=== PATIENT | female | born 1945 | race Caucasian/White ===

== ENCOUNTER → 2018-03-18 11:06 | Outpatient (POV) | payer MEDICARE, OTHER, SELFPAY | PROVIDERS: Visit Provider Nurse Practitioner Acute Care | DX: Z00.00 Encounter for general adult medical examination without abnormal findings (principal) ==

== ENCOUNTER → 2018-07-15 10:42 | Outpatient (POV) | payer MEDICARE, SELFPAY | PROVIDERS: Family Provider Internal Medicine; PCP Internal Medicine; Visit Provider Nurse Practitioner Acute Care | DX: Z00.00 Encounter for general adult medical examination without abnormal findings (principal) ==

== ENCOUNTER → 2018-07-22 08:06 | Outpatient (CLI) | payer MEDICARE, OTHER, SELFPAY ==
--- NOTE | 2018-07-22 08:00 | US_ITS ---
US abdomen limited History:Right upper quadrant pain Ordering Physician:Constance Thornton Patient Age: 72 years Comparison:None Findings: Pancreas:Unremarkable. No obvious mass or abnormal fluid collection. No ductal dilatation Liver:No focal liver lesions demonstrated. Homogeneous echogenicity. No intrahepatic biliary ductal dilatation evident Right Kidney:Unremarkable. Normal size and echogenicity. No hydronephrosis Gallbladder:There is a gallstone present measuring approximately 15 mm. No gallbladder wall thickening or pericholecystic fluid. The common bile duct is upper normal at 7 mm. Impression: Cholelithiasis
== END ==
PROVIDERS: Family Provider Internal Medicine; PCP Internal Medicine; Visit Provider Nurse Practitioner Acute Care
DX: Z12.11 Encounter for screening for malignant neoplasm of colon (principal); R10.11 Right upper quadrant pain; R07.9 Chest pain, unspecified
CPT/HCPCS: 76705

== ENCOUNTER → 2018-08-01 07:36 | Outpatient (CLI) | payer MEDICARE, OTHER, SELFPAY ==
--- NOTE | 2018-08-01 07:39 | CA_ITS ---
PROCEDURE: 2-D M-mode and color Doppler study INDICATIONS FOR THE TEST: Chest pain+ COPD Heart Murmur Tobacco Smoking Palpitations Fatigue Syncope Edema Hypertension+Diabetes Mellitus Rheumatic Fever SOB BRADLEY Obesity Hyperlipidemia+ Family History HD Additional History abn EKG PATIENT INFORMATION HEIGHT: 60 WEIGHT: 136 GENDER: Female B/P: 158/74 2-D/M-MODE INTERPRETATION: 2-D MEASUREMENTS OBSERVED VALUES IN CMS Right Ventricular Dimension (RVDd) 2.1 Interventricular Septum (Thickness)(IVsd) 1.1 Left Ventricular Internal Dimensions(LVIDd) 3.5 Left Ventricular Posterior Wall (Thickness)(LVPWd) 0.8 Aortic Root 2.5 Aortic Cusp Separation 2.0 Left Atrial Dimensions (LAD) 2.9 2D 1. Left atrium is mildly enlarged, left ventricle is normal size, mild concentric left ventricular hypertrophy, visually estimated ejection fraction 55% with no regional wall motion abnormality. 2. The right atrium and right ventricle are normal size and contractility. 3. The aortic valve is minimally thickened and fibrosed. 4. The mitral and tricuspid valve leaflets are minimally thickened. 5. The pulmonic valve is poorly visualized. 6. No significant pericardial effusion noted. DOPPLER INTERROGATION: Doppler interrogation of the aortic, mitral and tricuspid valvular presence of mild aortic, mild mitral and tricuspid regurgitation, tricuspid regurgitation jet velocity is inadequate for calculation of the right ventricular systolic pressure, grade 1 diastolic dysfunction seen without tissue Doppler evidence of raised left atrial pressure. CONCLUSION: 1. Mildly enlarged left atrium, normal left ventricular size, mild concentric left ventricular hypertrophy, visually estimated ejection fraction of 55% with no regional wall motion abnormality. Grade 1 diastolic dysfunction seen without tissue Doppler evidence of raised left atrial pressure. 2. Mild aortic, mild mitral and tricuspid regurgitation 3. No significant pericardial effusion noted.
--- NOTE | 2018-08-01 07:39 | NM_ITS ---
History and Indications: Hypertension, hyperlipidemia. Procedure: Patient exercised on Jerry protocol 7 minutes, resting heart rate was 58 bpm resting blood pressure 168/70, with exercise maximum heart rate achieved was 1 50 bpm which is greater than 101% of the maximum predicted heart rate and a blood pressure was 218/70. Test was started due to shortness of breath patient denied complained of chest pain. Patient has good exercise capacity achieved 10.1mets of workload on treadmill, the blood pressure response to exercise was hypertensive. Electrocardiogram: Resting electrocardiogram showed sinus bradycardia interventricular conduction delay, nonspecific ST-T changes, with exercise there is occasional premature ventricular complex seen, in addition to ST segment depression noted from the baseline EKG, the EKG portion of the exercise Myoview is nondiagnostic secondary to baseline abnormal EKG. Cardiac stress and resting SPECT images: Cardiac stress and rest SPECT images were obtained using technetium 99 Myoview 31.0 mCi stress and 10.2 mCi at rest. Gated SPECT further analysis of segmental wall motion and calculation of the ejection fraction also done. Cardiac stress and rest images show uniform myocardial activity without segmental perfusion abnormality, computer derived ejection fraction cannot be calculated from gated SPECT due to technical difficulty. Conclusion: 1. The EKG portion of the exercise Myoview is nondiagnostic secondary to baseline abnormal EKG, patient has good exercise capacity achieved 10.1mets of workload on treadmill, the blood pressure response to exercise was hypertensive, there was no exercise-induced chest discomfort. 2. No scintigraphic evidence of reversible ischemia seen, gated SPECT is inadequate significant difficulty to calculate left ventricular systolic function.
--- NOTE | 2018-08-01 10:36 | HMH.ITSHM ---
Current Home Medications as stated by this patient Sarah Hansen or senior account representative. [asa nabumetone atovastatin lisinopril estradol citalopram gabapentin]
== END ==
PROVIDERS: PCP Internal Medicine; Visit Provider Internal Medicine
DX: I10 Essential (primary) hypertension (principal); K21.9 Gastro-esophageal reflux disease without esophagitis; R07.89 Other chest pain; R94.31 Abnormal electrocardiogram [ECG] [EKG]
CPT/HCPCS: 78452; 93017; 93306; A9502

== ENCOUNTER → 2018-08-26 11:55 | Outpatient (CLI) | payer MEDICARE, OTHER, SELFPAY ==
[2018-08-26 12:10] LABS: Basophils # 0.1 K/mm3 (0-0.2); Basophils % 0.9 % (0.1-2.0); Eosinophils # 0.1 K/mm3 (0.0-0.4); Eosinophils % 1.5 % (0.1-12.0); Hematocrit 39.4 % (37.0-47.0); Hemoglobin 13.1 g/dL (12.2-16.2); Lymphocytes # 2.7 K/mm3 (0.7-4.5); Lymphocytes % 39.9 % (10-50); Mean Corpuscular HGB Conc 33.3 g/dL (31.8-35.4); Mean Corpuscular Hemoglobin 29.2 pg (27.0-31.2); Mean Corpuscular Volume 87.6 fl (81-99); Mean Platelet Volume 8.3 fl (7.4-10.4); Monocytes # 0.4 K/mm3 (0.1-1.0); Monocytes % 5.5 % (1.7-9.3); Neutrophils # 3.5 K/mm3 (1.8-7.8); Neutrophils % 52.1 % (37.0-80.0); Platelet Count 222 K/mm3 (142-424); Red Blood Count 4.49 M/mm3 (4.20-5.40); Red Cell Distribution Width 13.1 % (11.5-17.5); White Blood Count 6.6 K/mm3 (4.8-10.8)
[2018-08-26 14:04] LABS: Alanine Aminotransferase 32 U/L (12-78); Albumin Level 3.7 gm/dL (3.4-5.0); Albumin/Globulin Ratio 1.1 (1.1-1.8); Alkaline Phosphatase 75 U/L (46-116); Anion Gap 12.3 mEq/L (5-15); Aspartate Amino Transferase 19 U/L (15-37); Bilirubin,Total 0.5 mg/dL (0.2-1.0); Blood Urea Nitrogen 24 mg/dL (7-18); Carbon Dioxide 28 mmol/L (21.0-32.0); Chloride 105 mmol/L (98-107); Creatinine,Serum 0.52 mg/dL (0.55-1.02); Estimated Glomerular Filt Rate 116 ml/min (>60); GFR (African American) 140 ML/MIN (>60); Globulin 3.4 gm/dl (1.3-3.2); Glucose 78 mg/dL (74-106); Potassium 4.3 mmoL/L (3.5-5.1); Sodium 141 mmol/L (136-145); Total Protein,Serum 7.1 gm/dL (6.4-8.2)
== END ==
PROVIDERS: Visit Provider Surgery
DX: K82.9 Disease of gallbladder, unspecified (principal)
CPT/HCPCS: 36415; 80053; 85025

== ENCOUNTER → 2018-10-22 09:59 | Outpatient (CLI) | payer MEDICARE, OTHER, SELFPAY ==
--- NOTE | 2018-10-22 10:00 | XR_ITS ---
XR DEXA axial skeleton HISTORY: ITS.REASON: SCREENING ORDERING PHYSICIAN: Diony Seo MD PATIENT AGE: 73 years COMPARISON: 01/08/2017 FINDINGS: The BMD measured at the Right femoral neck is 0.800 g/cm squared with a T score of -1.7. This is considered Osteopenic according to the World Health Organization criteria. Fracture risk is Moderate. Treatment is advised. The hip density has decreased by 1.2% L1 L4 density has a T score of -1.2 and is unchanged IMPRESSION: Osteopenia with moderate fracture risk. Recommend follow-up exam 2020. Treatment is advised
== END ==
PROVIDERS: PCP Internal Medicine; Visit Provider Obstetrics & Gynecology
DX: Z78.0 Asymptomatic menopausal state (principal); Z13.820 Encounter for screening for osteoporosis
CPT/HCPCS: 77080

== ENCOUNTER → 2018-11-22 16:43 | Outpatient (CLI) | payer MEDICARE, OTHER, SELFPAY ==
[2018-11-22 18:26] LABS: Blood Urea Nitrogen 21 mg/dL (7-18); Creatinine,Serum 0.57 mg/dL (0.55-1.02); Estimated Glomerular Filt Rate 104 ml/min (>60); GFR (African American) 126 ML/MIN (>60)
== END ==
PROVIDERS: Visit Provider Surgery
DX: R10.9 Unspecified abdominal pain (principal)
CPT/HCPCS: 36415; 82565; 84520

== ENCOUNTER → 2018-11-28 10:26 | Outpatient (CLI) | payer MEDICARE, OTHER, SELFPAY ==
--- NOTE | 2018-11-28 10:28 | CT_ITS ---
CT chest w con HISTORY: Right-sided chest pain ITS.REASON: rt chest pain ORDERING PHYSICIAN: Donny Olivera MD PATIENT AGE: 73 years COMPARISON: None TECHNIQUE: Axial images obtained following the administration of 75 mL of Optiray 350. Sagittal, and coronal reformatted images are also generated and reviewed. All CT scans at the facility use one or more dose reduction, viz: automated exposure control, ma/kV adjustment per patient size (including targeted exams where dose is matched to indication, i.e. head), or iterative reconstruction technique. FINDINGS: There is a heterogeneous nodule involving the right aspect of the thyroid gland posteriorly and 18 x 14 mm. Consider ultrasound for further evaluation. No mediastinal or hilar mass or adenopathy. Coronary artery calcifications are present. Lungs are clear. No suspicious nodules or masses effusions or infiltrates. No acute bony findings. No evidence of aortic aneurysm or dissection. No evidence of central pulmonary embolus. There is mild wedging involving the T7 vertebral body which is chronic. No chest wall mass apparent. No bony destructive process. Upper abdominal images show prior cholecystectomy IMPRESSION: 1. No acute finding. 2. 18 mm right thyroid nodule. Consider ultrasound for further evaluation. 3. Coronary artery calcification
== END ==
PROVIDERS: PCP Internal Medicine; Visit Provider Surgery
DX: R07.9 Chest pain, unspecified (principal)
CPT/HCPCS: 71260

== ENCOUNTER → 2019-01-02 13:22 | Outpatient (CLI) | payer MEDICARE, OTHER, SELFPAY ==
--- NOTE | 2019-01-02 13:25 | US_ITS ---
US thyroid HISTORY: Thyroid nodule seen on recent CT scan ITS.REASON: RT THYROID CYST ORDERING PHYSICIAN: Jeancarlos Santizo PATIENT AGE: 73 years Comparison: None FINDINGS: Right lobe: 4 x 2 x 1.4 cm. There is a dominant 2.4 x 1.6 cm solid nodule in the lower pole on the right corresponding to the CT abnormality. This nodule is probably well-circumscribed with no obvious calcifications. Left lobe: 3.7 x 1.5 x 1.1 cm. There is a mixed nodule in the mid polar region at 1 cm with low level of suspicion for malignancy. Isthmus: Unremarkable IMPRESSION: 2.4 cm solid nodule in the lower pole on the right corresponding to CT abnormality. Suggest ultrasound guided fine needle aspiration
== END ==
PROVIDERS: PCP Internal Medicine; Visit Provider Internal Medicine
DX: E04.1 Nontoxic single thyroid nodule (principal)
CPT/HCPCS: 76536

== ENCOUNTER → 2019-01-23 12:46 | Outpatient (CLI) | payer MEDICARE, OTHER, SELFPAY ==
--- NOTE | 2019-01-23 12:50 | US_ITS ---
US FNA Thyroid HISTORY: Dominant solid right-sided thyroid nodule in the posterior aspect of the right thyroid gland ITS.REASON: RT THYROID NODULE ORDERING PHYSICIAN: Jeancarlos Santizo PATIENT AGE: 73 years COMPARISON: 01/02/2019 TECHNIQUE: Following obtaining informed consent, using aseptic technique and local anesthesia with buffered lidocaine, fine-needle aspiration was performed of the nodule of interest using sonographic guidance. 3 passes were made into the nodule with a 25-gauge needle. Specimen was given to cytology. The patient tolerated the procedure well without evidence of immediate complications and left the ultrasound suite in stable condition. CYTOLOGY:Negative for malignancy. Compatible with benign follicular nodule IMPRESSION: Uneventful sonographic guided fine needle aspiration of the right thyroid nodule showing benign findings
== END ==
PROVIDERS: PCP Internal Medicine; Visit Provider Internal Medicine
DX: E04.1 Nontoxic single thyroid nodule (principal)
CPT/HCPCS: 10005; 76536; 88173

== ENCOUNTER → 2020-02-10 12:09 | Outpatient (CLI) | payer MEDICARE, OTHER, SELFPAY ==
--- NOTE | 2020-02-10 | CA_ITS ---
APPROVED REPORT Left Lower Extremity Venous Study for DVT. Director Of Adult Epilepsy: JOHNNY Indications Lower Extremity Edema: Left Lower Extremity Swelling: Left Patient states she was walking 2 weeks ago and afterwards her left lower extremity began hurting. One week ago she noticed swelling and what appeared to be a cyst near the medial popliteal region. Shortly after that she noticed cyanosis around the left ankle area. She denies any known trauma Risk Factors HTN, Hyperlipidemia Medications Aspirin 81 mg ASA daily Patient takes estradiol > 5 years post hysterectomy Vein Imaging CFV (L): compressive, spontaneous, phasic, augmentation FEM (L): compressive, spontaneous, phasic, augmentation POP (L): compressive, spontaneous, phasic, augmentation PTV (L): Compressible GSV (L): compressive, spontaneous, phasic, augmentation SSV (L): Compressible Peroneals (L):Compressible GAS (L): Compressible Findings No evidence of DVT or superficial thrombophlebitis in the veins scanned of the left lower extremity. Hyperchoic densities seen extending from popliteal fossa into proxmial medial calf. Suggest further testing. Conclusion No evidence of DVT or superficial thrombophlebitis in the veins scanned of the left lower extremity. 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
== END ==
PROVIDERS: PCP Internal Medicine; Visit Provider Internal Medicine
DX: M79.662 Pain in left lower leg (principal); R60.0 Localized edema
CPT/HCPCS: 93971

== ENCOUNTER → 2020-02-17 13:42 | Outpatient (CLI) | payer MEDICARE, OTHER, SELFPAY ==
--- NOTE | 2020-02-17 13:44 | MR_ITS ---
PROCEDURE: MR LOWER LEG LT WO CON CLINICAL INDICATION: CYSTIC LESION LEFT CALF Palpable knot along the medial and posterior aspect of the leg with tenderness swelling and pain fullness COMPARISON: No exams were available for comparison TECHNIQUE: Routine multiplanar multi echo sequences are performed without gadolinium enhancement. FINDINGS: Extensive artifact is present from metallic hardware within the knee.. There is a curvilinear fluid collection along the medial aspect of the calf. This is medial to the medial head of the gastrocnemius and measures 4 cm AP, 1 cm in thickness, and extends cephalad caudad for length of approximately 10 cm.. This does not have a typical location for Sheridan cyst as they usually arise between the medial head of the gastrocnemius and semimembranosus tendon. This area is not visualized due to the overlying artifact from the knee prosthesis. This collection is more medial than expected for Sheridan's cyst. There is generalized subcutaneous edema about the calf. No bony abnormalities are evident. IMPRESSION: Crescentic fluid collection along the medial aspect of the medial head of the gastrocnemius muscle. The proximal aspect of this is not identified. Therefore cannot confirm if this is arising from the popliteal fossa as 1 would see in a Sheridan's cyst. An atypical Sheridan's cyst or a liquified hematoma is a consideration. There is generalized subcutaneous edema of the calf. No soft tissue masses or bony abnormalities evident. Dictated by: Rory Zimmerman MD 02/18/2020 17:42 Electronically signed by Rory Zimmerman MD in [place] 02/18/2020 17:42
== END ==
PROVIDERS: PCP Internal Medicine; Visit Provider Internal Medicine
DX: L03.116 Cellulitis of left lower limb (principal)
CPT/HCPCS: 73718

== ENCOUNTER 2020-05-20 16:30 | Emergency (ER) | payer MEDICARE, OTHER, SELFPAY ==
[2020-05-20 17:13] VITALS: BP 210/90; PULSE 60; RESP 18; TEMP 36.8; O2SAT 95; BMI 25.4
--- NOTE | 2020-05-20 17:20 | HMH.EDUTC ---
[facility] [place] Disposition Clinical Impression: Parotitis Disposition: Home, Self-Care Condition on Discharge: Good Instructions: Parotitis, DI for Parotitis-Adult, Amoxicillin and Clavulanic Acid Additional Instructions: Milk of Magnesium on canker sore may help with pain and discomfort and healing Start on sialogogues (e.g., sour lozenges, lemon juice), which stimulate salivary secretions and help expel the stone Take medication as prescribed Return if needed Straight to ER if any life threatening symptoms Follow up with Family doctor if no imrpovement or any worsening of symptoms Prescriptions: Amoxicillin/Potassium Clav [Augmentin 875-125 Tablet] 1 tab PO Q12H 5 Days #10 tab Transmission Status: Pending to [id number] Referrals: Jeancarlos Santizo [Primary Care Provider] - As needed Time of Disposition: 17:47 Medical Decision Making - August Inquiry Pt receiving controlled substance: No August was queried for this patient: No Vital Signs: 05/20/20 17:13 Temperature 98.2 F Temperature Source Oral Pulse Rate [Right Brachial] 60 Respiratory Rate 18 Blood Pressure [Right Arm] 210/90 H Blood Pressure Mean [Right Arm] 130 Blood Pressure Source [Right Arm] Manual Cuff/ Auscultation Blood Pressure Position [Right Arm] Sitting 02 Sat by Pulse Oximetry 95 Oxygen Delivery Method Room Air [facility] [place] HPI - General Stated complaint: Swollen place on tongue Time Seen by Provider: 05/20/20 17:20 Mode of Arrival: Ambulatory Source of Information: Patient Limitations: No Limitations Description of Symptoms (Recalled from Triage Doc. by RN): PATIENT C/O PAIN TO LEFT POSTERIOR TONGUE SINCE SUNDAY. SLIGHT SWELLING NOTED TO LEFT JAW/NECK AREA HEENT Symptoms (Recalled from RN notes): Yes Resp Symptoms (Recalled from RN notes): No Skin Symptoms (Recalled from RN notes): No MS Symptoms (Recalled from RN notes): No Functional Status (Recalled from RN notes): WNL - History of Present Illness Provider Complaint: Patient states that she noticed a blister like area on the left side of the back of her tongue on Sunday and she seen her PCP earlier this week for it and was given some lidocaine to help with the discomfort States that she noticed she started having some swelling and soreness in her left lower jaw area that would hurt back to her ear and was worse when she would chew or eat so she came in to get it checked - Related Data Home Medications Medication Instructions Recorded Confirmed Aspirin [Aspir 81] 81 mg PO DAILY 04/22/18 10/20/19 Atorvastatin Calcium [Atorvastatin 20 mg PO DAILY 04/22/18 10/20/19 20mg Tab] Citalopram Hydrobromide [Celexa 10 mg PO DAILY 04/22/18 10/20/19 10mg Tablet] Multivitamin/Iron/Folic Acid 1 each PO DAILY 04/22/18 10/20/19 [Centrum Complete Multivit Tab] Omeprazole [Omeprazole 20mg Tab] 20 mg PO DAILY 04/22/18 10/20/19 lisinopriL [Lisinopril 20mg Tab] 20 mg PO DAILY 04/22/18 10/20/19 cholecalciferol (vitamin D3) 75 3,000 unit PO DAILY 10/18/18 10/20/19 mcg (3,000 unit) tablet gabapentin 100 mg capsule 100 mg PO QHS cap 10/18/18 10/20/19 Previous Rx's Medication Instructions Recorded raloxifene 60 mg tablet 60 mg PO DAILY 30 Days #30 tab 11/05/19 estradiol 1 mg tablet 1 mg PO QDAY 30 Days #30 tab 05/05/20 Amoxicillin/Potassium Clav 1 tab PO Q12H 5 Days #10 tab 05/20/20 [Augmentin 875-125 Tablet] Allergies Allergy/AdvReac Type Severity Reaction Status Date / Time morphine Allergy Unknown Verified 10/20/19 08:39 allergy reaction propoxyphene [From Darvon] Allergy Verified 05/20/20 17:18 thimerosal Allergy Unknown Verified 10/20/19 08:39 [From Merthiolate allergy (thimerosal)] reaction - Worker's Comp Is this a Worker's Comp case?: No [facility] History - Hepatitis A Screen Drug use history?: No High risk sexual behaviors?: No History of sexually transmitted infection?: No Currently employed?: No Childcare worker?: No Do you have indoor plu
[2020-05-20 17:50] VITALS: BP 210/90; PULSE 60; RESP 18; TEMP 36.8; O2SAT 95
== END 2020-05-20 17:53 | disposition home or self-care (01) ==
PROVIDERS: Emergency Provider Nurse Practitioner; PCP Internal Medicine
DX: K11.20 Sialoadenitis, unspecified (principal); I10 Essential (primary) hypertension; E78.5 Hyperlipidemia, unspecified; K21.9 Gastro-esophageal reflux disease without esophagitis; Z88.5 Allergy status to narcotic agent; Z90.49 Acquired absence of other specified parts of digestive tract; Z90.09 Acquired absence of other part of head and neck; Z90.710 Acquired absence of both cervix and uterus
CPT/HCPCS: 99201

== ENCOUNTER → 2020-09-20 08:55 | Outpatient (CLI) | payer MEDICARE, OTHER, SELFPAY ==
[2020-09-20 09:29] LABS: Basophils # 0.1 K/mm3 (0-0.2); Basophils % 1.1 % (0.1-2.0); Eosinophils # 0.1 K/mm3 (0.0-0.4); Eosinophils % 2.3 % (0.1-12.0); Hematocrit 43.3 % (37.0-47.0); Hemoglobin 15.1 g/dL (12.2-16.2); Lymphocytes % 41.4 % (10-50); Mean Corpuscular HGB Conc 34.8 g/dL (31.8-35.4); Mean Corpuscular Hemoglobin 29.8 pg (27.0-31.2); Mean Corpuscular Volume 85.5 fl (81-99); Mean Platelet Volume 8.5 fl (7.4-10.4); Monocytes # 0.3 K/mm3 (0.1-1.0); Monocytes % 5.9 % (1.7-9.3); Neutrophils # 2.3 K/mm3 (1.8-7.8); Neutrophils % 49.3 % (37.0-80.0); Platelet Count 230 K/mm3 (142-424); Red Blood Count 5.07 M/mm3 (4.20-5.40); White Blood Count 4.7 K/mm3 (4.8-10.8)
[2020-09-20 10:14] LABS: Chloride 106 mmol/L (98-107); Sodium 140 mmol/L (136-145)
[2020-09-20 10:15] LABS: Potassium 4.2 mmoL/L (3.5-5.1)
[2020-09-20 10:17] LABS: Blood Urea Nitrogen 21 mg/dl (7-17); Estimated Glomerular Filt Rate 120 ml/min (>60); GFR (African American) 146 ML/MIN (>60)
[2020-09-20 10:18] LABS: Anion Gap 13.2 mEq/L (5-15); Calcium 9.6 mg/dl (8.4-10.2); Carbon Dioxide 25 mmol/L (22.0-30.0); Glucose 90 mg/dl (74-100)
[2020-09-20 10:32] LABS: Coronavirus 19 IgG Antibody Negative (Negative); Coronavirus 19 IgM Antibody Negative (Negative)
== END ==
PROVIDERS: Visit Provider Internal Medicine
DX: Z01.810 Encounter for preprocedural cardiovascular examination (principal); Z03.818 Encounter for observation for suspected exposure to other biological agents ruled out; I20.8 Other forms of angina pectoris; R94.39 Abnormal result of other cardiovascular function study
CPT/HCPCS: 36415; 80048; 85025; 86328

== ENCOUNTER 2020-09-21 08:39 | Outpatient (CLI) | payer MEDICARE, OTHER, SELFPAY ==
[2020-09-21] VITALS (12 sets, daily range): BP systolic 123–183; BP diastolic 56–87; PULSE 50–61; RESP 13–20; TEMP 36.6; O2SAT 93–98; BMI 26.7
--- NOTE | 2020-09-21 08:41 | CA_ITS ---
APPROVED REPORT EXAM: Comprehensive 2D, Doppler, and color-flow Echocardiogram Production Support Analyst: Jennifer Sr CRT Ht: 5 ft 0 in Wt: 137lbs BSA: 1.59 BP: 157/57 mmHg Indications: Abnormal ECG, Chest Pain, Hyperlipidemia, Hypertension/HDD, GERD 2D Dimensions IVSd 1.50 cm LVEF (Visual) 55.30 % PWd 0.70 cm LVDd 2.90 cm LVDs 2.10 cm LVOT 1.80 cm (M/F) 1.5-2.5 M-Mode Dimensions LA Diam 3.00 cm (1.9-4.0) Ao Diam 3.10 cm (2.0-3.7) AV Cusp 2.00 cm (1.5-2.6) LV Diastology E/A Ratio 0.80 MED E' 4.00 (< 7 cm/sec) E'/MED E' Ratio 20.20 (>14) LAT E' 7.02 (<10 cm/sec) E/LAT E' Ratio 11.50 (>14) Aortic Valve LVOT Max 183.00 (70-110 cm/s) LVOT VTI 46.90 cm AoV Peak Dagoberto. 198.00 (50-130 cm/s) AI PHT 520.00 ms AO Peak GR. 16.00 mmHg AO Mean GR. 8.00 (<5 mmHg) AO VTI 48.00 (18-25 cm) FAITH (VTI) 2.48 (2.5-4.5 cm2) Mitral Valve MV E Max Dagoberto. 80.90 (40-130 cm/s) MV A Velocity 104.00 (40-130 cm/s) E/A Ratio 0.80 Pulmonary Valve PA Accel Time 246.00 (>120 msec) Tricuspid Valve TR P. Velocity 229.00 cm/s RAP Estimate 10.00 mmHg RVSP 31.00 mmHg Left Ventricle Left atrium is mildly enlarged, left ventricle is normal size, mild concentric left ventricular hypertrophy, visually estimated ejection fraction 55% with no regional wall motion abnormality, grade 1 diastolic dysfunction seen with tissue Doppler evidence of raise left atrial pressure. Right Ventricle Right atrium and right ventricle are normal size and contractility. Aortic Valve Aortic valve is thickened and calcified there is no aortic stenosis, there is mild aortic insufficiency. Mitral Valve Mitral valve is grossly normal, there is mild mitral regurgitation. Tricuspid Valve Tricuspid valve grossly normal, there is mild tricuspid regurgitation, calculated right ventricular systolic pressure 39 mmHg. Pulmonic Valve Pulmonic valve is poorly visualized. Great Vessels Aortic root is normal size. Pericardium No significant pericardial effusion noted. Conclusion 1. Mildly enlarged left atrium, normal left ventricular size, mild concentric left ventricular hypertrophy, visually estimated ejection fraction 55% with no regional wall motion abnormality, grade 1 diastolic dysfunction seen with tissue Doppler evidence of raise left atrial pressure. 2. Mild aortic, mild mitral and tricuspid regurgitation, calculated right ventricular systolic pressure 39 mmHg. 3. No significant pericardial effusion noted. Electronically signed by : Brad Iglesias, 09/22/2020 06:21:19
--- NOTE | 2020-09-21 10:01 | IR_ITS ---
APPROVED REPORT Patient Location: Outpatient PROCEDURES Left heart catheterization Left ventriculogram Selective coronary angiogram INDICATION Advanced age in the setting of an abnormal EKG with recalcitrant angina pectoris Informed consent was obtained prior to the procedure. COMPLICATIONS None Estimated Blood Loss: less than 10 ml TECHNIQUE One percent lidocaine used to anesthetize the right anterior aspect of the wrist. The right radial artery was accessed via the Seldinger technique. A 6 Nigerien sheath was placed in the right radial artery. 2.5 mg of verapamil, 800 mcg of nitroglycerin, 1mg Lidocaine and 5000 U Heparin were given through the arterial sheath. The trap catheter was also used to perform left heart catheterization, left ventriculogram and selective coronary angiogram. At the end of the procedure the sheath was removed good hemostasis was achieved using Traclet band, patient was transferred to the postop holding area in stable condition. ANGIOGRAPHIC RESULTS The left main artery Normal The left anterior descending artery Normal The circumflex artery Dominant with mild 10% proximal and mid vessel luminal irregularities The right coronary artery Small nondominant normal The NDIAYE ventriculogram reveals Slightly hyperdynamic at 70% The left ventricular end-diastolic pressure 25 mmHg IMPRESSION Mild nonflow limiting coronary disease Hyperdynamic ventricle Elevated LVEDP consistent with diastolic dysfunction which likely accounts for patient's abnormal EKG and angina pectoris PLAN 1. Treat diastolic dysfunction Electronically signed by : Jasper Vincent, 09/21/2020 11:08:46
== END 2020-09-21 14:16 | disposition home or self-care (01) ==
LOC: CATHLAB 08:41
PROVIDERS: Internal Medicine; PCP Internal Medicine; Visit Provider Internal Medicine Cardiovascular Disease
DX: E78.5 Hyperlipidemia, unspecified (principal); I25.110 Atherosclerotic heart disease of native coronary artery with unstable angina pectoris; K21.9 Gastro-esophageal reflux disease without esophagitis; R94.31 Abnormal electrocardiogram [ECG] [EKG]; Z88.8 Allergy status to other drugs, medicaments and biological substances; Z79.82 Long term (current) use of aspirin; Z79.899 Other long term (current) drug therapy; I11.0 Hypertensive heart disease with heart failure; I50.30 Unspecified diastolic (congestive) heart failure
CPT/HCPCS: 93306; 93458; 99152; C1725; C1769; J1644; Q9967

== ENCOUNTER → 2020-11-01 10:57 | Outpatient (CLI) | payer MEDICARE, OTHER, SELFPAY ==
--- NOTE | 2020-11-01 10:57 | XR_ITS ---
PROCEDURE: XR DEXA AXIAL SKELETON CLINICAL HISTORY: Bone Density- Osteopenia Postmenopausal COMPARISON: No exams were available for comparison FINDINGS: The right hip BMD is 0.770 grams/centimeter squared with a T-score of -1.4. The left hip BMD is 0.770 grams/centimeter squared with a T-score of -1.4. The lumbar spine BMD is 0.839 grams/centimeter squared with a T-score of -1.9. IMPRESSION: T-scores of the bilateral hips and lumbar in the osteopenia range. Based on these results a follow-up exam is recommended in 2 years. Dictated by: Dr. Yair Olivas MD 11/01/2020 19:17 Dr. Yair Olivas MD in [place] 11/01/2020 19:17
== END ==
PROVIDERS: PCP Obstetrics & Gynecology; Visit Provider Obstetrics & Gynecology
DX: N95.9 Unspecified menopausal and perimenopausal disorder; M85.89 Other specified disorders of bone density and structure, multiple sites
CPT/HCPCS: 77080

== ENCOUNTER → 2021-03-09 11:49 | Outpatient (CLI) | payer MEDICARE, OTHER, SELFPAY ==
[2021-03-09 13:11] LABS: Basophils # 0.1 K/mm3 (0-0.2); Basophils % 1.1 % (0.1-2.0); Eosinophils # 0.2 K/mm3 (0.0-0.4); Eosinophils % 2.7 % (0.1-12.0); Hematocrit 41.5 % (37.0-47.0); Lymphocytes # 2.2 K/mm3 (0.7-4.5); Lymphocytes % 37.5 % (10-50); Mean Corpuscular HGB Conc 33.8 g/dL (31.8-35.4); Mean Corpuscular Volume 85.9 fl (81-99); Mean Platelet Volume 9.3 fl (7.4-10.4); Monocytes # 0.4 K/mm3 (0.1-1.0); Monocytes % 7.6 % (1.7-9.3); Neutrophils # 2.9 K/mm3 (1.8-7.8); Neutrophils % 51.2 % (37.0-80.0); Platelet Count 180 K/mm3 (142-424); Red Blood Count 4.84 M/mm3 (4.20-5.40); Red Cell Distribution Width 13.1 % (11.5-17.5); White Blood Count 5.7 K/mm3 (4.8-10.8)
[2021-03-09 13:48] LABS: Alanine Aminotransferase 37 U/L (12-78); Albumin Level 4.4 g/dl (3.5-5.0); Albumin/Globulin Ratio 1.6 (1.1-1.8); Alkaline Phosphatase 83 U/L (38-126); Anion Gap 8.8 mEq/L (5-15); Aspartate Amino Transferase 38 U/L (14-36); Bilirubin,Total 1.2 mg/dl (0.2-1.3); Blood Urea Nitrogen 22 mg/dl (7-17); Calcium 9.1 mg/dl (8.4-10.2); Carbon Dioxide 29 mmol/L (22.0-30.0); Chloride 104 mmol/L (98-107); Chol/HDL Ratio 3.3 (1-3.5); Cholesterol 186 mg/dl (140-200); Estimated Glomerular Filt Rate 120 ml/min (>60); GFR (African American) 146 ML/MIN (>60); Globulin 2.7 g/dL (1.3-3.2); Glucose 78 mg/dl (74-100); HDL Cholesterol 56 mg/dl (40-60); Potassium 4.8 mmoL/L (3.5-5.1); Sodium 137 mmol/L (136-145); Total Protein,Serum 7.1 g/dl (6.3-8.2); Triglycerides 121 mg/dl (30-150); VLDL Cholesterol 24 mg/dL (0-40)
[2021-03-09 14:00] LABS: Erythrocyte Sedimentation Rate 27 mm/hr (0-30)
[2021-03-09 14:04] LABS: 25-OH Vitamin D, Total 33.3 ng/mL (30-100); Direct LDL Cholesterol 97.65 mg/dL (100-129)
[2021-03-09 14:38] LABS: Vitamin B12 509 pg/mL (239-931)
== END ==
PROVIDERS: Visit Provider Internal Medicine
DX: I10 Essential (primary) hypertension (principal); E78.5 Hyperlipidemia, unspecified; D64.9 Anemia, unspecified; R41.3 Other amnesia; M15.0 Primary generalized (osteo)arthritis; E55.9 Vitamin D deficiency, unspecified
CPT/HCPCS: 80053; 80061; 82306; 82607; 84443; 85025; 85651

== ENCOUNTER → 2021-05-09 11:07 | Outpatient (CLI) | payer MEDICARE, OTHER, SELFPAY ==
--- NOTE | 2021-05-09 11:12 | XR_ITS ---
PROCEDURE INFORMATION: Exam: XR Right Shoulder Exam date and time: 05/09/2021 11:12 AM Age: 75 years old Clinical indication: Pain; Shoulder; Right; Additional info: RT shoulder pain TECHNIQUE: Imaging protocol: XR Right shoulder. Views: 2 or more views. COMPARISON: CHESTW CT chest w con 11/28/2018 10:45 AM FINDINGS: Bones/joints: Degenerative change and periarticular calcification about the acromioclavicular joint. Thoracic spine compression fractures, of uncertain age. Lungs: Interstitial prominence. Soft tissues: Unremarkable. Other findings: Anatomic alignment. IMPRESSION: 1. Degenerative change and periarticular calcification about the acromioclavicular joint. 2. Additional findings as described above.
== END ==
PROVIDERS: PCP Internal Medicine; Visit Provider Internal Medicine
DX: M25.511 Pain in right shoulder (principal)
CPT/HCPCS: 73030

== ENCOUNTER → 2021-05-13 17:06 | Outpatient (CLI) | payer MEDICARE, OTHER, SELFPAY ==
--- NOTE | 2021-05-13 17:08 | MR_ITS ---
PROCEDURE: MR SHOULDER RT WO CON CLINICAL INDICATION: RIGHT PERSISTANT SHOULDER PAIN Shoulder pain that radiates down arm. No injury or trauma. Symptoms x6-8wks. Prior x-ray 05/09/21. COMPARISON: CR XR SHOULDER RT MIN 2V from 05/09/2021 TECHNIQUE: Routine multiplanar multi echo sequences are performed without gadolinium enhancement. FINDINGS: Prominent acromioclavicular hypertrophy is present. There is a small spur along the inferior aspect of the acromion with a downsloping acromion with subacromial stenosis. Tendinopathy/tendinosis involves the supraspinatus and infraspinatus and subscapularis tendons. There is severe thinning of the infraspinatus tendon distally consistent with high-grade partial tear.. There is severe tendinosis of the supraspinatus tendon. A small oval cystic area is present at the musculotendinous junction of the supraspinatus. There are osteoarthritic changes of the glenohumeral joint with slightly high-riding humeral head. Bicipital tendon is in place. There is increased T2 signal of the greater tuberosity. No obvious labral tear. The infraspinatus tendon is intact. IMPRESSION: Severe tendinopathy/tendinosis of the supraspinatus and infraspinatus tendons with high-grade partial tear of the infraspinatus tendon. Acromioclavicular arthropathy and glenohumeral arthropathy with downsloping acromion and subacromial stenosis with a small spur along the inferior surface of the a chromium Small cystic area in the musculotendinous junction of the supraspinatus muscle which may be seen with partial muscle tear. Dictated by: Rory Zimmerman MD 05/14/2021 10:12 Rory Zimmerman MD in [place] 05/14/2021 10:12
== END ==
PROVIDERS: PCP Internal Medicine; Visit Provider Internal Medicine
DX: M25.511 Pain in right shoulder (principal)
CPT/HCPCS: 73221

== ENCOUNTER → 2021-09-07 15:11 | Outpatient (CLI) | payer MEDICARE, OTHER, SELFPAY ==
[2021-09-07 15:54] LABS: Basophils # 0.1 K/mm3 (0-0.2); Basophils % 1.6 % (0.1-2.0); Eosinophils # 0.1 K/mm3 (0.0-0.4); Eosinophils % 2.6 % (0.1-12.0); Hematocrit 40.5 % (37.0-47.0); Hemoglobin 14.2 g/dL (12.2-16.2); Lymphocytes # 2.1 K/mm3 (0.7-4.5); Lymphocytes % 40.2 % (10-50); Mean Corpuscular Volume 85.8 fl (81-99); Mean Platelet Volume 9.1 fl (7.4-10.4); Monocytes # 0.5 K/mm3 (0.1-1.0); Monocytes % 8.7 % (1.7-9.3); Neutrophils # 2.5 K/mm3 (1.8-7.8); Neutrophils % 46.9 % (37.0-80.0); Platelet Count 239 K/mm3 (142-424); Red Blood Count 4.72 M/mm3 (4.20-5.40); Red Cell Distribution Width 13.7 % (11.5-17.5); White Blood Count 5.2 K/mm3 (4.8-10.8)
[2021-09-07 16:01] LABS: Chloride 103 mmol/L (98-107); Potassium 4.6 mmoL/L (3.5-5.1); Sodium 141 mmol/L (136-145)
[2021-09-07 16:03] LABS: Alanine Aminotransferase 62 U/L (12-78); Aspartate Amino Transferase 56 U/L (14-36); Bilirubin,Total 0.9 mg/dl (0.2-1.3); Blood Urea Nitrogen 19 mg/dl (7-17); Estimated Glomerular Filt Rate 97 ml/min (>60); GFR (African American) 118 ML/MIN (>60)
[2021-09-07 16:04] LABS: Albumin Level 4.4 g/dl (3.5-5.0); Albumin/Globulin Ratio 1.6 (1.1-1.8); Alkaline Phosphatase 99 U/L (38-126); Anion Gap 12.6 mEq/L (5-15); Calcium 9.5 mg/dl (8.4-10.2); Carbon Dioxide 30 mmol/L (22.0-30.0); Chol/HDL Ratio 3.1 (1-3.5); Cholesterol 187 mg/dl (140-200); Globulin 2.7 g/dL (1.3-3.2); Glucose 75 mg/dl (74-100); HDL Cholesterol 60 mg/dl (40-60); Total Protein,Serum 7.1 g/dl (6.3-8.2); Triglycerides 101 mg/dl (30-150); VLDL Cholesterol 20 mg/dL (0-40)
[2021-09-07 16:15] LABS: Direct LDL Cholesterol 107.67 mg/dL (100-129)
== END ==
PROVIDERS: Visit Provider Internal Medicine
DX: I10 Essential (primary) hypertension (principal); E78.5 Hyperlipidemia, unspecified; D64.9 Anemia, unspecified; M15.0 Primary generalized (osteo)arthritis; E55.9 Vitamin D deficiency, unspecified
CPT/HCPCS: 80053; 80061; 85025

== ENCOUNTER → 2021-10-19 10:46 | Outpatient (CLI) | payer MEDICARE, OTHER, SELFPAY ==
--- NOTE | 2021-10-19 10:47 | CA_ITS ---
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 142.00 (50-130 cm/s) AO Peak GR. 8.00 mmHg Mitral Valve MV E Max Dagoberto. 91.80 (40-130 cm/s) MV A Velocity 108.00 (40-130 cm/s) E/A Ratio 0.90 Pulmonary Valve TX End VMAX 20.10 cm/s PA Accel Time 123.00 (>120 msec) Tricuspid Valve TR P. Velocity 234.00 cm/s RAP Estimate 10.00 mmHg RVSP 32.00 mmHg Left Ventricle Left atrium is mildly enlarged, left ventricular is normal in size, mild concentric left ventricular hypertrophy, visually estimated ejection fraction of 55% with no regional wall motion abnormality, grade 1 diastolic dysfunction secondary tissue Doppler evidence of trace left atrial pressure. Right Ventricle Right atrium and right ventricle are mildly enlarged with normal contractility. Aortic Valve Aortic valve is thickened and calcified without Doppler evidence of aortic stenosis, there is trace aortic insufficiency. Mitral Valve Mitral valve leaflets are minimally thickened, there is mild mitral regurgitation. Tricuspid Valve Tricuspid valve grossly normal, there is mild tricuspid regurgitation, tricuspid regurgitation jet velocity is inadequate for calculation of the right ventricular systolic pressure. Pulmonic Valve Pulmonic valve is poorly visualized. Great Vessels Aortic root is normal size. Inferior vena cava is poorly visualized. Pericardium No significant pericardial effusion noted. Conclusion 1. Mild biatrial enlargement, normal left ventricular size, mild concentric left ventricular hypertrophy, visually estimated ejection fraction 55% with no regional wall motion abnormality, grade 1 diastolic dysfunction seen with tissue Doppler evidence of raise left atrial pressure. 2. Mildly enlarged right ventricle with normal contractility. 3. Thickened and calcified aortic valve without aortic stenosis, there is trace aortic insufficiency. 4. Mild mitral and tricuspid regurgitation. 5. No significant pericardial effusion noted. 6. Inferior vena cava is poorly visualized. Electronically signed by : Brad Iglesias MD 10/19/2021 20:13:20
== END ==
PROVIDERS: PCP Internal Medicine; Visit Provider Physician Assistant
DX: E78.2 Mixed hyperlipidemia (principal); I10 Essential (primary) hypertension; I25.118 Atherosclerotic heart disease of native coronary artery with other forms of angina pectoris; K21.9 Gastro-esophageal reflux disease without esophagitis
CPT/HCPCS: 93306

== ENCOUNTER → 2022-03-08 10:27 | Outpatient (CLI) | payer MEDICARE, OTHER, SELFPAY ==
--- NOTE | 2022-03-08 10:46 | XR_ITS ---
FINAL REPORT CLINICAL HISTORY: L HIP PAIN COMPARISON: June 02, 2016 FINDINGS: LEFT HIP Two views of the left hip with an AP pelvis demonstrate no acute fracture or dislocation. The joint spaces appear normal. The visualized bony structures are well aligned. No soft tissue abnormality is seen. IMPRESSION: No acute bony abnormality. Reviewed, Interpreted and Dictated by Donny Lagunas III, MD Transcribed by Felicitas Morales Authenticated and [facility]
== END ==
PROVIDERS: PCP Internal Medicine; Visit Provider Internal Medicine
DX: M25.552 Pain in left hip (principal)
CPT/HCPCS: 73502

== ENCOUNTER → 2022-03-08 13:20 | Outpatient (CLI) | payer MEDICARE, OTHER, SELFPAY ==
[2022-03-08 15:38] LABS: Alanine Aminotransferase 42 U/L (12-78); Albumin Level 3.9 g/dl (3.5-5.0); Albumin/Globulin Ratio 1.4 (1.1-1.8); Alkaline Phosphatase 87 U/L (38-126); Anion Gap 12.2 mEq/L (5-15); Aspartate Amino Transferase 39 U/L (14-36); Bilirubin,Total 0.9 mg/dl (0.2-1.3); Blood Urea Nitrogen 17 mg/dl (7-17); Calcium 9.2 mg/dl (8.4-10.2); Carbon Dioxide 28 mmol/L (22.0-30.0); Chloride 105 mmol/L (98-107); Cholesterol 152 mg/dl (140-200); Estimated Glomerular Filt Rate 120 ml/min (>60); GFR (African American) 145 ML/MIN (>60); Globulin 2.7 g/dL (1.3-3.2); Glucose 76 mg/dl (74-100); HDL Cholesterol 50 mg/dl (40-60); Potassium 4.2 mmoL/L (3.5-5.1); Sodium 141 mmol/L (136-145); Total Protein,Serum 6.6 g/dl (6.3-8.2); Triglycerides 65 mg/dl (30-150); VLDL Cholesterol 13 mg/dL (0-40)
[2022-03-08 15:56] LABS: Direct LDL Cholesterol 77.44 mg/dL (100-129)
[2022-03-08 17:48] LABS: 25-OH Vitamin D, Total 36.5 ng/mL (30-100)
== END ==
PROVIDERS: PCP Internal Medicine; Visit Provider Internal Medicine
DX: I10 Essential (primary) hypertension (principal); E78.5 Hyperlipidemia, unspecified; E55.9 Vitamin D deficiency, unspecified; M25.552 Pain in left hip; M15.0 Primary generalized (osteo)arthritis
CPT/HCPCS: 73502; 80053; 80061; 82306

== ENCOUNTER → 2022-09-08 13:20 | Outpatient (CLI) | payer MEDICARE, OTHER, SELFPAY ==
[2022-09-08 17:24] LABS: Basophils # 0.1 K/mm3 (0-0.2); Basophils % 1.3 % (0.1-2.0); Eosinophils # 0.3 K/mm3 (0.0-0.4); Eosinophils % 4.4 % (0.1-12.0); Hematocrit 41.3 % (37.0-47.0); Hemoglobin 13.7 g/dL (12.2-16.2); Mean Corpuscular Volume 90.8 fl (81-99); Monocytes # 0.4 K/mm3 (0.1-1.0); Monocytes % 6.8 % (1.7-9.3); Neutrophils # 3.1 K/mm3 (1.8-7.8); Neutrophils % 53.5 % (37.0-80.0); Platelet Count 206 K/mm3 (142-424); Red Blood Count 4.56 M/mm3 (4.20-5.40); Red Cell Distribution Width 13.1 % (11.5-17.5); White Blood Count 5.8 K/mm3 (4.8-10.8)
[2022-09-08 18:41] LABS: Alanine Aminotransferase 48 U/L (12-78); Albumin Level 4.1 g/dl (3.5-5.0); Albumin/Globulin Ratio 1.6 (1.1-1.8); Alkaline Phosphatase 108 U/L (38-126); Anion Gap 11.3 mEq/L (5-15); Aspartate Amino Transferase 42 U/L (14-36); Blood Urea Nitrogen 21 mg/dl (7-17); Calcium 9.4 mg/dl (8.4-10.2); Carbon Dioxide 28 mmol/L (22.0-30.0); Chloride 106 mmol/L (98-107); Estimated Glomerular Filt Rate 97 ml/min (>60); GFR (African American) 117 ML/MIN (>60); Globulin 2.6 g/dL (1.3-3.2); Glucose 61 mg/dl (74-100); Potassium 4.3 mmoL/L (3.5-5.1); Sodium 141 mmol/L (136-145); Total Protein,Serum 6.7 g/dl (6.3-8.2)
[2022-09-08 18:56] LABS: 25-OH Vitamin D, Total 28.2 ng/mL (30-100); Free T4 (Free Thyroxine) 0.96 ng/dl (0.78-2.19)
[2022-09-08 19:12] LABS: Thyroid Stimulating Hormone 1.79 uIU/mL (0.465-4.68)
[2022-09-08 19:48] LABS: Vitamin B12 802 pg/mL (239-931)
[2022-09-11 11:12] LABS: Chol/HDL Ratio 3.1 (1-3.5); Cholesterol 165 mg/dl (140-200); HDL Cholesterol 53 mg/dl (40-60); Triglycerides 76 mg/dl (30-150); VLDL Cholesterol 15 mg/dL (0-40)
[2022-09-11 11:23] LABS: Direct LDL Cholesterol 89.08 mg/dL (100-129)
== END ==
PROVIDERS: PCP Internal Medicine; Visit Provider Internal Medicine
DX: I10 Essential (primary) hypertension (principal); E04.1 Nontoxic single thyroid nodule; E78.5 Hyperlipidemia, unspecified; E55.9 Vitamin D deficiency, unspecified; D64.9 Anemia, unspecified; R27.0 Ataxia, unspecified
CPT/HCPCS: 80053; 80061; 82306; 82607; 84439; 84443; 85025

== ENCOUNTER → 2023-01-04 11:48 | Outpatient (CLI) | payer MEDICARE, OTHER, SELFPAY ==
[2023-01-04 13:52] LABS: Erythrocyte Sedimentation Rate 15 mm/hr (0-30)
== END ==
PROVIDERS: PCP Internal Medicine; Visit Provider Internal Medicine
DX: M79.10 Myalgia, unspecified site (principal)
CPT/HCPCS: 36415; 85651

== ENCOUNTER 2023-01-18 16:54 | Emergency (ER) | payer MEDICARE, OTHER, SELFPAY ==
[2023-01-18 16:56] VITALS: BP 125/59; PULSE 69; RESP 17; TEMP 36.6; O2SAT 98; BMI 24.5
[2023-01-18 17:03] VITALS: BMI 24.4
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
[2023-01-18 18:27] VITALS: BP 174/75; PULSE 65; O2SAT 99
[2023-01-18 18:31] VITALS: BP 173/73; PULSE 68; O2SAT 98
--- NOTE | 2023-01-18 18:32 | PC.NURSE ---
rounded on pt, warm blanket given, family at bs
[2023-01-18 19:00] VITALS: BP 164/68; PULSE 65; O2SAT 96
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
[2023-01-18 19:14] VITALS: BP 164/68; PULSE 76; RESP 18; TEMP 36.8; O2SAT 97
== END 2023-01-18 19:23 | disposition home or self-care (01) ==
PROVIDERS: Emergency Provider Emergency Medicine; PCP Internal Medicine
DX: R51.9 Headache, unspecified (principal); M54.50 Low back pain, unspecified; W55.32XA Struck by other hoof stock, initial encounter
CPT/HCPCS: 70450; 72131; 90715; 96372; 99284; 99285

== ENCOUNTER → 2023-03-12 13:14 | Outpatient (CLI) | payer MEDICARE, OTHER, SELFPAY ==
[2023-03-12 15:41] LABS: Alanine Aminotransferase 36 U/L (12-78); Albumin Level 4.1 g/dl (3.5-5.0); Albumin/Globulin Ratio 1.5 (1.1-1.8); Alkaline Phosphatase 106 U/L (38-126); Anion Gap 15.1 mEq/L (5-15); Aspartate Amino Transferase 38 U/L (14-36); Blood Urea Nitrogen 19 mg/dl (7-17); Calcium 8.9 mg/dl (8.4-10.2); Carbon Dioxide 27 mmol/L (22.0-30.0); Chloride 103 mmol/L (98-107); Chol/HDL Ratio 3.7 (1-3.5); Cholesterol 221 mg/dl (140-200); Estimated Glomerular Filt Rate 120 ml/min (>60); GFR (African American) 145 ML/MIN (>60); Globulin 2.7 g/dL (1.3-3.2); Glucose 74 mg/dl (74-100); HDL Cholesterol 59 mg/dl (40-60); Potassium 4.1 mmoL/L (3.5-5.1); Sodium 141 mmol/L (136-145); Total Protein,Serum 6.8 g/dl (6.3-8.2); Triglycerides 114 mg/dl (30-150); VLDL Cholesterol 23 mg/dL (0-40)
[2023-03-12 15:52] LABS: Direct LDL Cholesterol 134.16 mg/dL (100-129)
== END ==
PROVIDERS: PCP Internal Medicine; Visit Provider Internal Medicine
DX: I10 Essential (primary) hypertension (principal); E78.5 Hyperlipidemia, unspecified; E55.9 Vitamin D deficiency, unspecified; D64.9 Anemia, unspecified
CPT/HCPCS: 80053; 80061

== ENCOUNTER → 2023-05-11 13:20 | Outpatient (CLI) | payer MEDICARE, OTHER, SELFPAY ==
[2023-05-11 14:58] LABS: Troponin I < 0.01 ng/ml (0.00-0.034)
== END ==
PROVIDERS: PCP Internal Medicine; Visit Provider Internal Medicine
DX: R94.31 Abnormal electrocardiogram [ECG] [EKG] (principal)
CPT/HCPCS: 36415; 84484

== ENCOUNTER → 2023-05-24 07:30 | Outpatient (CLI) | payer MEDICARE, OTHER, SELFPAY ==
--- NOTE | 2023-05-24 07:30 | NM_ITS ---
APPROVED REPORT Exam: Nuclear Stress Test Indication: fatigue Patient Location: Outpatient Stress Tech: Chloe Montelongo NE Tech:MELITON Wilson RT(R)(N) Ht: 4 ft 11 in Wt: 130 lbs Bra Size: 34b HR: 51 bpm BP: 203/69 mmHg BSA: 1.54 m2 Rhythm: NSR TID: 1.04 BMI: 26.2 Procedure: Patient received 0.4 mg of intravenous Lexiscan, resting heart rate 51 bpm, resting blood pressure 203/69 mmHg, with Lexiscan maximum heart rate achieved was 82 bpm which is 85 % of the maximum predicted heart rate and blood pressure was 203/69 mmHg. With Lexiscan, patient denied any complaint of chest pain. Cardiac Stress and Resting SPECT Images: Cardiac Stress and Resting SPECT images were obtained using technetium 99m Myoview 30.5 mCi stress and 10.55 mCi at rest. Resting and stress imaging in both supine and prone positions demonstrate a medium sized, mild, fixed perfusion defect in the basal to mid anterior LV wall. Gated imaging demonstrates normal global and regional LV systolic function. LVEF is calculated at 60%. Conclusion: Medium sized, mild, fixed perfusion defect in the basal to mid anterior LV wall. No evidence of reversible ischemia. Gated imaging demonstrates normal global and regional LV systolic function. LVEF is calculated at 60%. Electronically signed by : Shayla Matthews, 05/27/2023 17:42:55
--- NOTE | 2023-05-24 09:25 | CA_ITS ---
APPROVED REPORT EXAM: Comprehensive 2D, Doppler, and color-flow Echocardiogram Analysis Lead: Jael Pedersen RT(R) Ht: 5 ft 1 in Wt: 129lbs BSA: 1.57 BP: 140/78 mmHg Indications: abn EKG, HTN, SOB, fatigue, hyperlipidemia, CAD, dizziness 2D Dimensions LVOT 1.88 cm (M/F) 1.5-2.5 LVEF (Celis's) 59.40 % F: 54 - 74 LV Volume 94.10 mL F: 46 - 106 LV Volume Index 59.94 mL/m2 F: 29 - 61 LA Volume 31.90 mL LA Volume Index 20.32 mL/m2 (M/F) 16-34 M-Mode Dimensions RVDd 2.18 cm (0.9-2.6) LA Diam 3.26 cm (1.9-4.0) LVDd 4.19 cm (3.5-5.7) Ao Diam 2.05 cm (2.0-3.7) LVDs 3.19 cm (3.5-5.7) IVSd 0.81 cm (0.6-1.1) PWd 0.81 cm (0.6-1.1) EF (Teich) 48.00% FS 23.90% EDV (Teich) 78.10 mL ESV (Teich) 40.60 mL LV Diastology E Decel Time 180.00 (160-240 msec) E/A Ratio 0.7 MED E' 6.20 (< 7 cm/sec) E'/MED E' Ratio 12.26 (>14) LAT E' 6.40 (<10 cm/sec) E/LAT E' Ratio 11.88 (>14) Aortic Valve AoV Peak Dagoberto. 147.00 (50-130 cm/s) AI PHT 576.00 ms AO Peak GR. 8.70 mmHg AO Mean GR. 4.20 (<5 mmHg) AO VTI 38.02 (18-25 cm) Mitral Valve MV E Max Dagoberto. 76.00 (40-130 cm/s) MV A Velocity 103.00 (40-130 cm/s) E/A Ratio 0.74 MV Decel. Time 180.00 (160-240 ms) MV PHT 53.00 ms Pulmonary Valve PV Peak Velocity 84.00 (50-150 cm/s) Tricuspid Valve TR P. Velocity 302.00 cm/s RAP Estimate 10.00 mmHg RVSP 46.50 mmHg Left Ventricle The left ventricle is normal size. The left ventricular systolic function is normal. The left ventricular ejection fraction is within the normal range. There is increased LV wall thickness. There is normal LV segmental wall motion. Diastolic function is indeterminate. LVEF is 60%. Right Ventricle The right ventricle is normal size. The right ventricular systolic function is normal. Atria The left atrium size is normal. The right atrium size is normal. There is no Doppler evidence of interatrial shunt. Aortic Valve The aortic valve is mildly thickened. There is no aortic valvular stenosis. Mild aortic regurgitation. Mitral Valve The mitral valve is mildly thickened. No evidence of mitral valve stenosis. Trace mitral regurgitation. Tricuspid Valve The tricuspid valve leaflets are thin and pliable. Mild tricuspid regurgitation. RVSP is 35-40 mmHg. Pulmonic Valve The pulmonary valve is grossly normal in structure. Trace pulmonic regurgitation. Great Vessels The aortic root is normal in size. The ascending aorta is not well visualized. IVC is normal in size and collapses >50% with inspiration. Pericardium There is no pericardial effusion. Other Information Study Quality: Fair Conclusion Normal biventricular systolic function. Mild AI. Mild TR. Elevated RVSP 35-40 mmHg. Electronically signed by : Shayla Matthews, 05/25/2023 19:13:45
--- NOTE | 2023-05-24 10:32 | CA_ITS ---
APPROVED REPORT Exam: Pharmacologic Technologist: Chloe Eduardo, Ht: 5 ft 0 in Wt: 129 lbs BSA: 1.55 m2 HR: 63 bpm BP: 203/69 mmHg Rhythm: NSR Medical History Medications: Aspirin,,,,, Gabapentin,,,,, Losartan,,,,, Atorvastatin,,,,, Citalopram,,,,, Vit D3,,,,, Aleve,,,,, Ibuprofen,,,,, BuPROPION HCI,,,,, Stress Test Details Test: LEXISCAN Reason for pharmacologic stress test: changed from exercise stress test due to very high BP.. HR Resting HR: 51 bpm Max Heart Rate (APMHR): 143 bpm Max HR Achieved: 82 bpm Target HR (85% APMHR): 122 bpm % of APMHR: 57 Recovery HR: 67 bpm BP Resting BP: 203.0/69.0 mmHg Max BP: 203.0/69.0 mmHg Recovery BP: 189.0/72.0 mmHg ECG Resting ECG: NSR, LVH with probable strain pattern, possible old septal VA Stress ECG: No change Arrhythmia: None Clinical Exercise duration: 04:00 min Highest Stage Achieved: Exercise capacity: 1.0 METs Stress ECG Conclusion Switched from exercise stress test due to very high BP on arrival. Clonidine 0.1 mg PO was given due to elevated BP. The BP was improved thereafter. Symptoms: Head discomfort, No CP. Arrhythmias/Ectopy: None. ST-T Changes: No significant ST changes Conclusion: Non-diagnostic Lexiscan stress. Myoview images reported sepatately. Test Summary REST . . . . . . . Resting REST 12:45 . . 51 . 203/ 69 . . Stage 1 01:00 . . 77 . . . . Stage 2 01:00 . . 81 . 183/ 67 . . Stage 3 01:00 . . 77 . 163/ 67 . . Stage 4 01:00 . . 75 . 176/ 68 . Stop exercise at 04:00 RECOVERY 01:00 . . 74 . . . . RECOVERY 02:00 . . 70 . 182/ 73 . . RECOVERY 03:00 . . 68 . 189/ 72 . . RECOVERY 03:23 . . 67 . 189/ 72 . . Electronically signed by : Shayla Matthews, 05/27/2023 17:40:37
== END ==
PROVIDERS: PCP Internal Medicine; Visit Provider Internal Medicine
DX: E78.5 Hyperlipidemia, unspecified (principal); I10 Essential (primary) hypertension; I25.10 Atherosclerotic heart disease of native coronary artery without angina pectoris; R94.31 Abnormal electrocardiogram [ECG] [EKG]
CPT/HCPCS: 78452; 93017; 93306; A9502; J2785

== ENCOUNTER → 2023-09-10 12:16 | Outpatient (CLI) | payer MEDICARE, OTHER, SELFPAY ==
[2023-09-10 14:32] LABS: Alanine Aminotransferase 38 U/L (12-78); Albumin Level 4.1 g/dl (3.5-5.0); Albumin/Globulin Ratio 1.4 (1.1-1.8); Alkaline Phosphatase 89 U/L (38-126); Anion Gap 8.2 mEq/L (5-15); Aspartate Amino Transferase 41 U/L (14-36); Bilirubin,Total 0.8 mg/dl (0.2-1.3); Blood Urea Nitrogen 17 mg/dl (7-17); Calcium 8.8 mg/dl (8.4-10.2); Carbon Dioxide 27 mmol/L (22.0-30.0); Chloride 108 mmol/L (98-107); Chol/HDL Ratio 2.5 (1-3.5); Cholesterol 153 mg/dl (140-200); Estimated Glomerular Filt Rate 119 ml/min (>60); GFR (African American) 144 ML/MIN (>60); Globulin 2.9 g/dL (1.3-3.2); Glucose 77 mg/dl (74-100); HDL Cholesterol 62 mg/dl (40-60); Potassium 4.2 mmoL/L (3.5-5.1); Sodium 139 mmol/L (136-145); Triglycerides 69 mg/dl (30-150); VLDL Cholesterol 14 mg/dL (0-40)
[2023-09-10 14:34] LABS: Basophils % 0.6 % (0.1-2.0); Eosinophils # 0.2 K/mm3 (0.0-0.4); Eosinophils % 3.3 % (0.1-12.0); Hematocrit 39.8 % (37.0-47.0); Hemoglobin 13.8 g/dL (12.2-16.2); Lymphocytes # 1.9 K/mm3 (0.7-4.5); Lymphocytes % 36.8 % (10-50); Mean Corpuscular HGB Conc 34.8 g/dL (31.8-35.4); Mean Corpuscular Hemoglobin 30.2 pg (27.0-31.2); Mean Platelet Volume 9.9 fl (7.4-10.4); Monocytes # 0.4 K/mm3 (0.1-1.0); Monocytes % 8.4 % (1.7-9.3); Neutrophils # 2.7 K/mm3 (1.8-7.8); Neutrophils % 50.8 % (37.0-80.0); Platelet Count 191 K/mm3 (142-424); Red Blood Count 4.58 M/mm3 (4.20-5.40); White Blood Count 5.3 K/mm3 (4.8-10.8)
[2023-09-10 14:43] LABS: Direct LDL Cholesterol 80.75 mg/dL (100-129)
== END ==
PROVIDERS: PCP Internal Medicine; Visit Provider Internal Medicine
DX: I10 Essential (primary) hypertension (principal); E78.5 Hyperlipidemia, unspecified; E55.9 Vitamin D deficiency, unspecified; H83.09 Labyrinthitis, unspecified ear; M15.0 Primary generalized (osteo)arthritis
CPT/HCPCS: 80053; 80061; 85025

== ENCOUNTER 2023-12-13 14:00 | Outpatient (RCR) | payer MEDICARE, OTHER, SELFPAY | END 2023-12-13 15:20 | disposition home or self-care (01) | LOC: PT 14:00 | PROVIDERS: PCP Internal Medicine; Visit Provider Internal Medicine | DX: M54.42 Lumbago with sciatica, left side (principal) | CPT/HCPCS: 97010; 97012; 97014; 97110; 97140; 97163; 97164; 97530; G0283 ==

== ENCOUNTER 2023-12-21 10:02 | Outpatient (POV) | payer MEDICARE, OTHER, SELFPAY ==
--- NOTE | 2023-12-21 10:25 | A.OFFVIS_ITS ---
HPI Data of Consult Patient: new to practice Consult date: 12/21/23 Requesting Physician: Sharri Herrera APRN Primary Care Provider: Jeancarlos Santizo MD Consult Narrative Reason for consult: Low back pain History of present illness: Ms. Hansen is a 78 year old female who presents today as a new patient. She is a referral from Dr. Santizo's office. Today she rates her pain a 7 out of 10. Patient states her pain is all in her low back along the left side and into her left hip and buttocks area. Patient states this has been going on for months unrelated to any specific trauma or injury. She does describe this as a sharp shooting sensation that does interfere with her ability to perform activities of daily living such as cooking and cleaning. Patient states that she has not been able to do the things that she typically wants to do because the pain makes her have to stop and rest. Patient does state that she has tried Tylenol and ibuprofen along with heating pad and Biofreeze with minimal relief. Patient does state that she does use the Biofreeze still on her knees. Patient has been going to physical therapy since September and feels like she is stalled out with no additional progress at this point. Patient does state in the past she did have injections in her back about 8 to 10 years ago and they did significantly help. Patient denies any prior surgery. She does have a history of fibromyalgia. Patient is prescribed gabapentin 100 mg twice a day from an outside provider. Her August has been reviewed and is appropriate. CC: Sharri Herrera APRN [facility] Disclaimer: The information contained in this section may have been updated after the patient was seen, as this information can be updated by other users. Medical History Abnormal EKG Abnormal electrocardiogram [ECG] [EKG] Diastolic dysfunction Fibromyalgia Gastroesophageal reflux disease HLD (hyperlipidemia) HTN (hypertension) Surgical History H/O total hysterectomy History of cholecystectomy Family History (Updated 12/21/23 @ 10:09 by Khushbu Bell RN) Other Unknown family medical history Social History (Updated 12/21/23 @ 10:10 by Khushbu Bell RN) Smoking Status: Never smoker second hand exposure: No alcohol intake: never substance use type: denies use current occupational status: retired Travel in the last 8 weeks: None household members: spouse housing: house current occupational exposures/hazards: No caffeine: Yes Review of Systems Review of Systems Review of systems:: pertinent systems reviewed and negative unless documented below Review of systems (narrative): Review of Systems: General: No recent weight changes, no fever, no sleep disturbances Respiratory: No cough, no shortness of air, no recurring pulmonary infections Cardiovascular/peripheral vascular: No chest pain, no palpitations, no edema, no shortness of breath Gastrointestinal: No new onset incontinence, normal bowel movements reported Genitourinary: No new onset incontinence Musculoskeletal: Low back pain, left hip pain Psychiatric: [Normal mood/affect] Neurological: [Denies weakness in extremities], [denies balance issues] Meds Home Medications and Allergies Home Medications Medication Instructions Recorded Confirmed Type aspirin 81 mg tablet,delayed 81 mg PO DAILY Heart disease 04/22/18 09/11/23 History release [id number]-gomb-zfdl 8 mg-folic 400 1 tab PO DAILY supplement 09/17/20 09/11/23 History mcg-K 50 mcg-lutein 300 mcg tablet (Centrum Silver Women) naproxen sodium 220 mg capsule 220 mg PO DAILY PRN headache 09/17/20 09/11/23 History (Aleve) hydrocortisone 2.5 % topical cream applic topical 10/31/21 09/11/23 History bupropion HCl 150 mg tablet,12 hr 150 mg PO DAILY 04/26/22 09/11/23 History sustained-release atorvastatin 40 mg tablet 40 mg PO DAILY #90 tabs 05/09/23 09/11/23 Rx losartan 100 mg tablet 50 mg PO DAILY High blood pressure 05/09/23 09/11/23 History cholecalciferol (vitamin D3) 75 3,000 unit PO DAILY Supplement 05/15/23 09/11/23 History mcg (3,000 unit) tablet citalopram 10 mg tablet 20 mg PO DAILY mood 05/15/23 09/11/23 History clobetasol 0.05 % topical cream 1 applic topical DAILY PRN eczema 05/15/23 09/11/23 Rx #30 grams gabapentin 100 mg capsule 100 mg PO BID PRN nerve pain 05/15/23 09/11/23 History ibuprofen 600 mg tablet 600 mg PO PRN 05/15/23 09/11/23 History meclizine 25 mg tablet 12.5 mg PO TID PRN 09/11/23 09/11/23 History metoprolol succinate 25 mg 25 mg PO DAILY #90 tabs 12/10/23 Rx tablet,extended release 24 hr New Prescriptions to Start Prescriptions: Allergies Allergy/AdvReac Type Severity Reaction Status Date / Time morphine Allergy Unknown Verified 09/11/23 10:46 allergy reaction propoxyphene [From Darvon] Allergy Verified 09/11/23 10:46 thimerosal Allergy Unknown Verified 09/11/23 10:46 [From Merthiolate allergy (thimerosal)] reaction Objective Narrative: Physical Exam: General: Alert and oriented x3, no acute distress, pleasant and cooperative Lungs: Respirations even and unlabored, symmetrical chest expansion Eyes: PERRL Musculoskeletal: Flexion and extension of lumbar [spine] somewhat guarded secondary to pain\; point tenderness along left SI with positive left Apollo's, Perry's, Gaenslen's, compression and distraction exam Neurological: Speech clear, no gross sensory deficit Additional findings Additional findings: 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 There is preservation of vertebral alignment and vertebral body heights. Facet joints are aligned. No acute fracture. Mild to moderate bilateral neural foraminal narrowing at L5-S1 attributed to a combination of diffuse disc bulge and facet arthropathy. Sacroiliac joints are intact. Gallbladder and bile ducts: There has been a cholecystectomy. Kidneys and ureters: Nonobstructive left nephrolithiasis noted. Soft tissues: Unremarkable. IMPRESSION: 1. No acute fracture. No traumatic subluxation. 2. Chronic anterolisthesis of L5-S1 attributed to a pars defect. Assessment and Plan *Assessment and plan (1) Degenerative disc disease, lumbar: Status: Acute Category: Medical Code(s): M51.36 - Other intervertebral disc degeneration, lumbar region (2) Lumbar facet arthropathy: Status: Acute Category: Medical Code(s): M47.816 - Spondylosis without myelopathy or radiculopathy, lumbar region (3) Left hip pain: Status: Acute Category: Medical Code(s): M25.552 - Pain in left hip (4) Sacroiliitis: Status: Acute Category: Medical Code(s): M46.1 - Sacroiliitis, not elsewhere classified Plan Patient is experiencing worsening pain in her low back and left hip with limited range of motion. Patient did have point tenderness along her left SI and a positive left Apollo's, Perry's, Gaenslen's, compression and distraction exam. I discussed with the patient that she may benefit from left sacroiliac joint injection. Risk and benefits were discussed with the patient and she would like to proceed forward with this plan of care. Patient has tried and failed conservative therapies including ongoing physical therapy since September with minimal relief. We will schedule the patient for a left SI injection under fluoroscopy. patient has been instructed to contact the clinic with any concerns before the next appointment. Dr. Alonzo has reviewed this note and agrees with this plan of care. This note was dictated using voice recognition software and make contain errors or omissions.
[2023-12-21 10:36] VITALS: BP 145/63; PULSE 59; RESP 18; O2SAT 95; BMI 24.4
== END 2023-12-21 23:59 ==
PROVIDERS: PCP Internal Medicine; Visit Provider Nurse Practitioner Family
DX: M51.36 Other intervertebral disc degeneration, lumbar region (principal); M47.816 Spondylosis without myelopathy or radiculopathy, lumbar region; M25.552 Pain in left hip; M46.1 Sacroiliitis, not elsewhere classified
CPT/HCPCS: 99202; 99212; G0463

== ENCOUNTER 2024-01-15 08:47 | Day surgery (SDC) | payer MEDICARE, OTHER, SELFPAY ==
[2024-01-15 09:01] VITALS: BP 140/70; PULSE 68; RESP 18; TEMP 36.4; O2SAT 95; BMI 25.4
[2024-01-15] MEDS: methylPREDNISolone ACETATE 80MG/ML VIAL 80 MG (09:15)
[2024-01-15] MEDS: LIDOCAINE 1% 5ML PF VIAL 5 ML (09:15)
[2024-01-15] MEDS: BUPIVACAINE 0.25% 10ML INJ 25 MG IJ (09:15)
--- NOTE | 2024-01-15 09:17 | P.PCN_ITS ---
Procedure Date: 01/15/24 Time: 08:55 Anesthesiologist:: Lefty Bowman CRNA Complications:: None Pre-procedure Diagnosis:: Left sacroiliitis Post-procedure Diagnosis:: Same Indications for Procedure:: Patient is a very pleasant 78-year-old female comes our clinic today for a left sacroiliac joint injection. She reports extreme left posterior buttock pain as well as left low lumbar back pain with sitting and/or standing for any length of time. Upon examination she has extreme point tenderness over the left sacroiliac joint. She reports having difficulty transitioning from sitting to standing. She rates her pain 7/10. Procedure Details:: Procedure: Left sacroiliac injection under fluoroscopy Informed consent was obtained and the risk and benefits of the procedure were explained to the patient.~ The patient was taken to the procedure room and noninvasive monitors were placed including noninvasive blood pressure cuff and pulse oximeter.~ The patient was placed prone on the procedure table.~ The~ left hip was cleansed using Betadine as a cleansing solution.~ C-arm fluorosocpy was used to view the left SI joint.~ The skin and subcutaneous tissues were anesthetized using Lidocaine 1.5% and a 25-gauge needle.~ After this, a 22-gauge spinal needle was inserted under fluoroscopic guidance into the inferior aspect of the left SI joint.~ Omnipaque dye was injected and a good spread was seen throughout the joint.~ After this, approximately 5 mL of bupivacaine 0.25% and Depo-Medrol 40 mg was incrementally injected into the sacroiliac joint.~ The patient tolerated the procedure well with no complications.~ The patient was obs erved in the Pain Clinic for a period of 30-45 minutes, then discharged home neurologically intact.~Procedure: Left sacroiliac injection under fluoroscopy Plan and Disposition:: Patient was discharged without incident.
[2024-01-15 09:21] VITALS: BP 144/51; PULSE 55; RESP 18; O2SAT 95
== END 2024-01-15 09:21 | disposition home or self-care (01) ==
PROVIDERS: PCP Internal Medicine; Visit Provider Nurse Anesthetist, Certified Registered
DX: M46.1 Sacroiliitis, not elsewhere classified (principal)
CPT/HCPCS: 27096; 77002; G0260; J1010

== ENCOUNTER 2024-02-21 10:21 | Outpatient (POV) | payer MEDICARE, OTHER, SELFPAY ==
[2024-02-21 10:34] VITALS: BP 138/55; PULSE 62; RESP 18; O2SAT 98; BMI 26.2
--- NOTE | 2024-02-21 10:34 | EXP.PAIN.SOA ---
[facility] Pain Management SOAP Note Subjective:: Patient is a pleasant 78-year-old female who presents today for left SI injection under fluoroscopy on 01/15/2024. Today she rates her pain a 0 out of 10. Patient states that she has had 100% relief following this injection and feels like it still continue to provide good relief. She states that it is not 1 day from what she was going through. She states she has been able to increase her activity with decreased pain symptoms and feels overall much more functional. Patient is prescribed gabapentin from an outside provider. Her August has been reviewed and is appropriate. Review of Systems: General: No recent weight changes, no fever, no sleep disturbances Respiratory: No cough, no shortness of air, no recurring pulmonary infections Cardiovascular/peripheral vascular: No chest pain, no palpitations, no edema, no shortness of breath Gastrointestinal: No new onset incontinence, normal bowel movements reported Genitourinary: No new onset incontinence Musculoskeletal: Low back pain Psychiatric: [Normal mood/affect] Neurological: [Denies weakness in extremities], [denies balance issues] Objective:: Physical Exam: General: Alert and oriented x3, no acute distress, pleasant and cooperative Lungs: Respirations even and unlabored, symmetrical chest expansion Eyes: PERRL Musculoskeletal: Flexion and extension of lumbar [spine] somewhat guarded secondary to pain Neurological: Speech clear, no gross sensory deficit Assessment:: Low back pain, left hip pain, left sacroiliitis Plan:: Patient has had significant improvement following her injection and does not require any additional injection therapy at this time. Patient will return to clinic in 1 month for reevaluation of symptoms and plan of care. Patient has been instructed to contact the clinic with any concerns before the next appointment. Dr. Alonzo has reviewed this note and agrees with this plan of care. This note was dictated using voice recognition software and make contain errors or omissions. [facility] Disclaimer: The information contained in this section may have been updated after the patient was seen, as this information can be updated by other users. Medical History (Updated 02/15/24 @ 15:19 by Nayeli Silverman MA) Thyroid nodule Memory loss Ataxia, unspecified Lumbago with sciatica, left side Primary generalized (osteo)arthritis Vitamin D deficiency, unspecified Abnormal electrocardiogram [ECG] [EKG] Fibromyalgia Abnormal EKG Diastolic dysfunction HTN (hypertension) HLD (hyperlipidemia) Gastroesophageal reflux disease Surgical History (Updated 02/15/24 @ 15:19 by Nayeli Silverman MA) Presence of artificial knee joint, bilateral History of cholecystectomy H/O total hysterectomy Family History Other Unknown family medical history Social History Smoking Status: Never smoker second hand exposure: No alcohol intake: never substance use type: denies use current occupational status: retired Travel in the last 8 weeks: None household members: spouse housing: house current occupational exposures/hazards: No caffeine: Yes
== END 2024-02-21 23:59 | disposition home or self-care (01) ==
LOC: SC.PAIN 10:22
PROVIDERS: PCP Internal Medicine; Visit Provider Nurse Practitioner Family
DX: M54.50 Low back pain, unspecified (principal); M25.552 Pain in left hip; M46.1 Sacroiliitis, not elsewhere classified
CPT/HCPCS: 99212; G0463

== ENCOUNTER 2024-03-11 18:00 | Outpatient (CLI) | payer MEDICARE, OTHER, SELFPAY ==
[2024-03-11 13:54] LABS: Alanine Aminotransferase 42 U/L (12-78); Albumin Level 4.2 g/dl (3.5-5.0); Albumin/Globulin Ratio 1.4 (1.1-1.8); Alkaline Phosphatase 87 U/L (38-126); Anion Gap 13.3 mEq/L (5-15); Aspartate Amino Transferase 45 U/L (14-36); Bilirubin,Total 1.5 mg/dl (0.2-1.3); Blood Urea Nitrogen 16 mg/dl (7-17); Calcium 9.7 mg/dl (8.4-10.2); Carbon Dioxide 29 mmol/L (22.0-30.0); Chloride 102 mmol/L (98-107); Chol/HDL Ratio 3.4 (1-3.5); Cholesterol 183 mg/dl (140-200); Estimated Glomerular Filt Rate 97 ml/min (>60); GFR (African American) 117 ML/MIN (>60); Globulin 2.9 g/dL (1.3-3.2); Glucose 79 mg/dl (74-100); HDL Cholesterol 54 mg/dl (40-60); Potassium 4.3 mmoL/L (3.5-5.1); Sodium 140 mmol/L (136-145); Total Protein,Serum 7.1 g/dl (6.3-8.2); Triglycerides 105 mg/dl (30-150); VLDL Cholesterol 21 mg/dL (0-40)
[2024-03-11 14:04] LABS: Direct LDL Cholesterol 96.79 mg/dL (100-129)
== END 2024-03-11 23:59 | disposition home or self-care (01) ==
LOC: LAB.DROPOF 03-12 10:28
PROVIDERS: PCP Internal Medicine; Visit Provider Internal Medicine
DX: E78.2 Mixed hyperlipidemia; I11.9 Hypertensive heart disease without heart failure
CPT/HCPCS: 80053; 80061

== ENCOUNTER 2024-04-14 09:11 | Outpatient (CLI) | payer MEDICARE, OTHER, SELFPAY ==
--- NOTE | 2024-04-14 09:11 | XR_ITS ---
FINAL REPORT TECHNIQUE: Bone mineral density was calculated of the lumbar spine and hip. CLINICAL HISTORY: Osteopenia COMPARISON: 11/01/2020 FINDINGS: Using L1-4, the bone mineral density of the spine is 0.852 g/cm2, corresponding to T-score of -1.8. Using the left hip, the bone mineral density of the femoral neck is 0.641 g/cm2, corresponding to a T-score of -1.9. Using the right hip, the bone mineral density of the femoral neck is 0.644 g/cm?, corresponding to a T-score of -1.8. NOTE: T-score: Standard deviation compared with peak bone mass of young adult mean. *Following the recommendations of the International Society of Bone densitometry, classification of hip BMD is based on the lower of two T-scores; total hip or femoral neck. IMPRESSION: Diminished bone mineral density of the lumbar spine and bilateral hips consistent with low bone density. Reviewed, Interpreted and Dictated by Donny Lagunas III, MD Transcribed by Nichole Hennessy Authenticated and [facility]
== END 2024-04-14 23:59 | disposition home or self-care (01) ==
LOC: RAD 09:11
PROVIDERS: PCP Internal Medicine; Visit Provider Internal Medicine
DX: M85.80 Other specified disorders of bone density and structure, unspecified site (principal); Z78.0 Asymptomatic menopausal state
CPT/HCPCS: 77080

== ENCOUNTER 2024-04-23 11:18 | Outpatient (POV) | payer MEDICARE, OTHER, SELFPAY ==
[2024-04-23 11:25] VITALS: BP 169/62; PULSE 64; RESP 16; O2SAT 96; BMI 26.2
--- NOTE | 2024-04-23 12:01 | EXP.PAIN.SOA ---
[facility] Disclaimer: The information contained in this section may have been updated after the patient was seen, as this information can be updated by other users. Medical History Thyroid nodule Memory loss Ataxia, unspecified Lumbago with sciatica, left side Primary generalized (osteo)arthritis Vitamin D deficiency, unspecified Abnormal electrocardiogram [ECG] [EKG] Fibromyalgia Abnormal EKG Diastolic dysfunction HTN (hypertension) HLD (hyperlipidemia) Gastroesophageal reflux disease Surgical History Presence of artificial knee joint, bilateral History of cholecystectomy H/O total hysterectomy Family History Other Unknown family medical history Social History Smoking Status: Never smoker second hand exposure: No alcohol intake: never substance use type: denies use current occupational status: other Travel in the last 8 weeks: None household members: spouse housing: house current occupational exposures/hazards: No caffeine: Yes PM Subjective & Objective Subjective Subjective:: Patient is a pleasant 78-year-old female who presents today for 2 month follow-up. Today she rates her pain a 7 out of 10. Patient denies any new trauma or injury. She does state that she is experiencing more pain in and around her low back along the left side and into her hip and buttocks area. She denies any radiating symptoms into her legs. Patient does describe the pain as an aching, throbbing sensation that does interfere with her ability perform activities of daily living. Patient states the pain is worse with prolonged sitting or standing or certain activities like increased walking. Patient did previously have a left SI injection back in January that provided 100% relief and does state that she feels like this is officially worn off. Patient is prescribed gabapentin from an outside provider. Her August has been reviewed and is appropriate. Review of Systems: General: No recent weight changes, no fever, no sleep disturbances Respiratory: No cough, no shortness of air, no recurring pulmonary infections Cardiovascular/peripheral vascular: No chest pain, no palpitations, no edema, no shortness of breath Gastrointestinal: No new onset incontinence, normal bowel movements reported Genitourinary: No new onset incontinence Musculoskeletal: Low back pain, left hip pain, left buttocks pain Psychiatric: [Normal mood/affect] Neurological: [Denies weakness in extremities], [denies balance issues] Pain at rest (0-10 scale): 7 Objective Objective:: Physical Exam: General: Alert and oriented x3, no acute distress, pleasant and cooperative Lungs: Respirations even and unlabored, symmetrical chest expansion Eyes: PERRL Musculoskeletal: Flexion and extension of lumbar [spine] somewhat guarded secondary to pain, [antalgic gait noted] point tenderness along left SI with positive left Apollo's, Perry's, Gaenslen's, compression and distraction exam Neurological: Speech clear, no gross sensory deficit Has patient had previous pain injection?: No Conservative treatment options previously tried: Home exercise plan Length of treatment: Longer than 6 weeks and Prescription medications Length of treatment: Longer than 6 weeks Meds Home Medications and Allergies Home Medications Medication Instructions Recorded Confirmed Type aspirin 81 mg tablet,delayed 81 mg PO DAILY Heart disease 04/22/18 04/23/24 History release [id number] 8 mg-folic 400 1 tab PO DAILY supplement 09/17/20 04/23/24 History mcg-K 50 mcg-lutein 300 mcg tablet (Centrum Silver Women) naproxen sodium 220 mg capsule 220 mg PO DAILY PRN headache 09/17/20 04/23/24 History (Aleve) hydrocortisone 2.5 % topical cream 1 applic topical DIRECTED Skin 10/31/21 04/23/24 History Condition bupropion HCl 150 mg tablet,12 hr 150 mg PO DAILY 04/26/22 04/23/24 History sustained-release atorvastatin 40 mg tablet 40 mg PO DAILY #90 tabs 05/09/23 04/23/24 Rx citalopram 10 mg tablet 20 mg PO DAILY mood 05/15/23 04/23/24 History clobetasol 0.05 % topical cream 1 applic topical DAILY PRN eczema 05/15/23 04/23/24 Rx #30 grams gabapentin 100 mg capsule 100 mg PO BID PRN nerve pain 05/15/23 04/23/24 History ibuprofen 600 mg tablet 600 mg PO DIRECTED PRN Pain 05/15/23 04/23/24 History metoprolol succinate 25 mg 25 mg PO DAILY #90 tabs 12/10/23 04/23/24 Rx tablet,extended release 24 hr cholecalciferol (vitamin D3) 75 4,000 unit PO DAILY Supplement 03/11/24 04/23/24 History mcg (3,000 unit) tablet losartan 100 mg tablet 100 mg PO DAILY High blood pressure 03/11/24 04/23/24 History omeprazole 20 mg capsule,delayed 20 mg PO DAILY 03/11/24 04/23/24 History release meclizine 25 mg tablet See Rx Instructions .Route 03/29/24 04/23/24 Rx .COMPLEX #25 tabs New Prescriptions to Start Prescriptions: Allergies Allergy/AdvReac Type Severity Reaction Status Date / Time morphine Allergy Unknown Verified 03/12/24 10:17 allergy reaction propoxyphene [From Darvon] Allergy Verified 03/12/24 10:17 thimerosal Allergy Unknown Verified 03/12/24 10:17 [From Merthiolate allergy (thimerosal)] reaction Assessment and Plan *Assessment and plan (1) Sacroiliitis: Status: Acute Category: Medical Code(s): M46.1 - Sacroiliitis, not elsewhere classified Plan Patient is experiencing worsening pain in and around her low back and left hip with pain going into her left buttocks. Patient did have point tenderness at her left SI with positive left Apollo's, Perry's, Gaenslen's, compression and distraction exam. I have discussed with the patient that she may benefit from repeat left SI injection. Risk and benefits were discussed with the patient and she would like to proceed forward with this plan of care. Patient did previously have 100% relief lasting approximately 3 months with this last injection. Patient did have overall improved function with that injection. Patient has continued at home stretching exercise in between injections with no additional relief. We will submit to insurance for left SI injection under fluoroscopy. Patient has been instructed to contact the clinic with any concerns before the next appointment. Dr. Alonzo has reviewed this note and agrees with this plan of care. This note was dictated using voice recognition software and make contain errors or omissions.
== END 2024-04-23 23:59 | disposition home or self-care (01) ==
LOC: SC.PAIN 11:18
PROVIDERS: PCP Internal Medicine; Visit Provider Nurse Practitioner Family
DX: M46.1 Sacroiliitis, not elsewhere classified (principal)
CPT/HCPCS: 99212; G0463

== ENCOUNTER 2024-05-06 09:38 | Day surgery (SDC) | payer MEDICARE, OTHER, SELFPAY ==
[2024-05-06 09:59] VITALS: BP 144/64; PULSE 58; RESP 16; TEMP 36.2; O2SAT 100; BMI 26.2
--- NOTE | 2024-05-06 10:01 | EXP.PAIN.PRO ---
Procedure Date: 05/06/24 Time: 09:55 Anesthesiologist:: Lefty Bowman CRNA Complications:: None Pre-procedure Diagnosis:: Left sacroiliitis Post-procedure Diagnosis:: Same Indications for Procedure:: Patient is a pleasant 78-year-old female comes our clinic today for left sacroiliac joint injection to cortisone. She reports low lumbar back pain left greater than right. Left posterior hip pain. Difficulty transitioning from sitting to standing. Upon examination she has extreme point tenderness over the left sacroiliac joint. She rates her pain 8/10. Procedure Details:: Procedure: Left sacroiliac injection under fluoroscopy Informed consent was obtained and the risk and benefits of the procedure were explained to the patient.~ The patient was taken to the procedure room and noninvasive monitors were placed including noninvasive blood pressure cuff and pulse oximeter.~ The patient was placed prone on the procedure table.~ The~ left hip was cleansed using Betadine as a cleansing solution.~ C-arm fluorosocpy was used to view the left SI joint.~ The skin and subcutaneous tissues were anesthetized using Lidocaine 1.5% and a 25-gauge needle.~ After this, a 22-gauge spinal needle was inserted under fluoroscopic guidance into the inferior aspect of the left SI joint.~ Omnipaque dye was injected and a good spread was seen throughout the joint.~ After this, approximately 5 mL of bupivacaine 0.25% and Depo-Medrol 40 mg was incrementally injected into the sacroiliac joint.~ The patient tolerated the procedure well with no complications.~ The patient was observed in the Pain Clinic for a period of 30-45 minutes, then discharged home neurologically intact.~ Plan and Disposition:: Patient was discharged without incident.
[2024-05-06 10:06] VITALS: BP 132/45; PULSE 53; RESP 18; O2SAT 96
[2024-05-06] MEDS: LIDOCAINE 1% 5ML PF VIAL 5 ML (10:08)
[2024-05-06 10:09] VITALS: BP 144/66; PULSE 58; RESP 18; O2SAT 95
[2024-05-06] MEDS: BUPIVACAINE 0.25% 10ML INJ 25 MG IJ (10:09)
[2024-05-06] MEDS: methylPREDNISolone ACETATE 80MG/ML VIAL 80 MG (10:09)
[2024-05-06 10:10] VITALS: BP 144/66; PULSE 58; RESP 18; O2SAT 95
== END 2024-05-06 10:06 | disposition home or self-care (01) ==
PROVIDERS: PCP Internal Medicine; Visit Provider Nurse Anesthetist, Certified Registered
DX: M46.1 Sacroiliitis, not elsewhere classified (principal)
CPT/HCPCS: 27096; G0260; J1010

== ENCOUNTER 2024-05-28 09:37 | Outpatient (POV) | payer MEDICARE, OTHER, SELFPAY ==
[2024-05-28 09:56] VITALS: BP 149/86; PULSE 63; RESP 18; O2SAT 97; BMI 25.4
--- NOTE | 2024-05-28 10:15 | A.OFFVIS_ITS ---
[facility] Disclaimer: The information contained in this section may have been updated after the patient was seen, as this information can be updated by other users. Medical History Thyroid nodule Memory loss Ataxia, unspecified Lumbago with sciatica, left side Primary generalized (osteo)arthritis Vitamin D deficiency, unspecified Abnormal electrocardiogram [ECG] [EKG] Fibromyalgia Abnormal EKG Diastolic dysfunction HTN (hypertension) HLD (hyperlipidemia) Gastroesophageal reflux disease Surgical History Presence of artificial knee joint, bilateral History of cholecystectomy H/O total hysterectomy Family History Other Unknown family medical history Social History Smoking Status: Never smoker second hand exposure: No alcohol intake: never substance use type: denies use current occupational status: other Travel in the last 8 weeks: None household members: spouse housing: house current occupational exposures/hazards: No caffeine: Yes PM Subjective & Objective Subjective Subjective:: Patient is a pleasant 78-year-old female who presents today for follow-up of left SI injection. Today she rates her pain a 1 out of 10. She denies any new trauma or injury. She does state that she had at least 80% relief following this injection however it did not work as well as her first 1 that provided 100% relief lasting upwards of 3 months. She does state that it is still seeming to help and that overall the pain is definitely not as severe and that she is not having the pain more into her buttocks and upper thigh. Patient does state with prolonged standing she will still occasionally have a little pain in and around her low back. Her August has been reviewed and is appropriate. Review of Systems: General: No recent weight changes, no fever, no sleep disturbances Respiratory: No cough, no shortness of air, no recurring pulmonary infections Cardiovascular/peripheral vascular: No chest pain, no palpitations, no edema, no shortness of breath Gastrointestinal: No new onset incontinence, normal bowel movements reported Genitourinary: No new onset incontinence Musculoskeletal: Low back pain Psychiatric: [Normal mood/affect] Neurological: [Denies weakness in extremities], [denies balance issues] Pain at rest (0-10 scale): 1 Objective Objective:: Physical Exam: General: Alert and oriented x3, no acute distress, pleasant and cooperative Lungs: Respirations even and unlabored, symmetrical chest expansion Eyes: PERRL Musculoskeletal: Flexion and extension of lumbar [spine] somewhat guarded secondary to pain, [antalgic gait noted] Neurological: Speech clear, no gross sensory deficit Has patient had previous pain injection?: Yes Percent improvement in pain since last injection: 80% Conservative treatment options previously tried: Home exercise plan Length of treatment: Longer than 6 weeks Meds Home Medications and Allergies Home Medications ?Medication ?Instructions ?Recorded ?Confirmed ?Type aspirin 81 mg tablet,delayed 81 mg PO DAILY Heart disease 04/22/18 05/28/24 History release [id number] 8 mg-folic 400 1 tab PO DAILY supplement 09/17/20 05/28/24 History mcg-K 50 mcg-lutein 300 mcg tablet (Centrum Silver Women) naproxen sodium 220 mg capsule 220 mg PO DAILY PRN headache 09/17/20 05/28/24 History (Aleve) hydrocortisone 2.5 % topical cream 1 applic topical DIRECTED Skin 10/31/21 05/28/24 History Condition bupropion HCl 150 mg tablet,12 hr 150 mg PO DAILY 04/26/22 05/28/24 History sustained-release atorvastatin 40 mg tablet 40 mg PO DAILY #90 tabs 05/09/23 05/28/24 Rx citalopram 10 mg tablet 20 mg PO DAILY mood 05/15/23 05/28/24 History clobetasol 0.05 % topical cream 1 applic topical DAILY PRN eczema 05/15/23 05/28/24 Rx #30 grams gabapentin 100 mg capsule 100 mg PO BID PRN nerve pain 05/15/23 05/28/24 History ibuprofen 600 mg tablet 600 mg PO DIRECTED PRN Pain 05/15/23 05/28/24 History metoprolol succinate 25 mg 25 mg PO DAILY #90 tabs 12/10/23 05/28/24 Rx tablet,extended release 24 hr cholecalciferol (vitamin D3) 75 4,000 unit PO DAILY Supplement 03/11/24 05/28/24 History mcg (3,000 unit) tablet losartan 100 mg tablet 100 mg PO DAILY High blood pressure 03/11/24 05/28/24 History omeprazole 20 mg capsule,delayed 20 mg PO DAILY 03/11/24 05/28/24 History release meclizine 25 mg tablet See Rx Instructions .Route 03/29/24 05/28/24 Rx .COMPLEX #25 tabs New Prescriptions to Start Prescriptions: Allergies Allergy/AdvReac Type Severity Reaction Status Date / Time morphine Allergy Unknown Verified 05/06/24 10:00 allergy reaction propoxyphene [From Darvon] Allergy Verified 05/06/24 10:00 thimerosal Allergy Unknown Verified 05/06/24 10:00 [From Merthiolate allergy (thimerosal)] reaction Assessment and Plan *Assessment and plan (1) Sacroiliitis: Status: Acute Category: Medical Code(s): M46.1 - Sacroiliitis, not elsewhere classified Plan Patient has had significant improvement following her left SI injection and does not require any additional injection therapy at this time. Patient will return to clinic in 1 month for reevaluation of symptoms and plan of care. I will also order the patient a compounded cream. Patient has been instructed to contact the clinic with any concerns before the next appointment. Dr. Alonzo has reviewed this note and agrees with this plan of care. This note was dictated using voice recognition software and make contain errors or omissions. All injections are used with Lidocaine or Bupivacaine and Depo Medrol.
== END 2024-05-28 23:59 | disposition home or self-care (01) ==
LOC: SC.PAIN 09:38
PROVIDERS: PCP Internal Medicine; Visit Provider Nurse Practitioner Family
DX: M46.1 Sacroiliitis, not elsewhere classified (principal); Z96.653 Presence of artificial knee joint, bilateral; Z79.899 Other long term (current) drug therapy
CPT/HCPCS: 99212; G0463

== ENCOUNTER 2024-06-26 09:56 | Outpatient (POV) | payer MEDICARE, OTHER, SELFPAY ==
[2024-06-26 10:33] VITALS: BP 165/56; PULSE 59; RESP 16; O2SAT 100; BMI 25.4
--- NOTE | 2024-06-26 11:32 | A.OFFVIS_ITS ---
[facility] Disclaimer: The information contained in this section may have been updated after the patient was seen, as this information can be updated by other users. Medical History Thyroid nodule Memory loss Ataxia, unspecified Lumbago with sciatica, left side Primary generalized (osteo)arthritis Vitamin D deficiency, unspecified Abnormal electrocardiogram [ECG] [EKG] Fibromyalgia Abnormal EKG Diastolic dysfunction HTN (hypertension) HLD (hyperlipidemia) Gastroesophageal reflux disease Surgical History Presence of artificial knee joint, bilateral History of cholecystectomy H/O total hysterectomy Family History Other Unknown family medical history Social History Smoking Status: Never smoker second hand exposure: No alcohol intake: never substance use type: denies use current occupational status: other Travel in the last 8 weeks: None household members: spouse housing: house current occupational exposures/hazards: No caffeine: Yes PM Subjective & Objective Subjective Subjective:: Patient is a pleasant 78-year-old female who presents today for follow-up. Today she rates her pain a 0 out of 10 along her low back however does state that her pain is about a 5-6 out of 10 in and around her right buttocks. Patient denies any new trauma or injury. She does state that it is an aching throbbing sensation that does interfere with her ability perform activities of daily living such as cooking and cleaning. Patient does state that she has been using her compounded cream on this area and it does seem to help somewhat. Patient is interested if we can do anything for this pain. Her August has been reviewed and is appropriate. Review of Systems: General: No recent weight changes, no fever, no sleep disturbances Respiratory: No cough, no shortness of air, no recurring pulmonary infections Cardiovascular/peripheral vascular: No chest pain, no palpitations, no edema, no shortness of breath Gastrointestinal: No new onset incontinence, normal bowel movements reported Genitourinary: No new onset incontinence Musculoskeletal: Right buttocks pain Psychiatric: [Normal mood/affect] Neurological: [Denies weakness in extremities], [denies balance issues] Pain at rest (0-10 scale): 5 Objective Objective:: Physical Exam: General: Alert and oriented x3, no acute distress, pleasant and cooperative Lungs: Respirations even and unlabored, symmetrical chest expansion Eyes: PERRL Musculoskeletal: Flexion and extension of lumbar [spine] somewhat guarded secondary to pain, [antalgic gait noted] point tenderness along the right piriformis muscle Neurological: Speech clear, no gross sensory deficit Has patient had previous pain injection?: No Conservative treatment options previously tried: Home exercise plan Length of treatment: Longer than 6 weeks Meds Home Medications and Allergies Home Medications ?Medication ?Instructions ?Recorded ?Confirmed ?Type aspirin 81 mg tablet,delayed 81 mg PO DAILY Heart disease 04/22/18 06/26/24 History release [id number] 8 mg-folic 400 1 tab PO DAILY supplement 09/17/20 06/26/24 History mcg-K 50 mcg-lutein 300 mcg tablet (Centrum Silver Women) naproxen sodium 220 mg capsule 220 mg PO DAILY PRN headache 09/17/20 06/26/24 History (Aleve) hydrocortisone 2.5 % topical cream 1 applic topical DIRECTED Skin 10/31/21 06/26/24 History Condition bupropion HCl 150 mg tablet,12 hr 150 mg PO DAILY 04/26/22 06/26/24 History sustained-release citalopram 10 mg tablet 20 mg PO DAILY mood 05/15/23 06/26/24 History clobetasol 0.05 % topical cream 1 applic topical DAILY PRN eczema 05/15/23 06/26/24 Rx #30 grams gabapentin 100 mg capsule 100 mg PO BID PRN nerve pain 05/15/23 06/26/24 History ibuprofen 600 mg tablet 600 mg PO DIRECTED PRN Pain 05/15/23 06/26/24 History metoprolol succinate 25 mg 25 mg PO DAILY #90 tabs 12/10/23 06/26/24 Rx tablet,extended release 24 hr cholecalciferol (vitamin D3) 75 4,000 unit PO DAILY Supplement 03/11/24 06/26/24 History mcg (3,000 unit) tablet losartan 100 mg tablet 100 mg PO DAILY High blood pressure 03/11/24 06/26/24 History omeprazole 20 mg capsule,delayed 20 mg PO DAILY 03/11/24 06/26/24 History release meclizine 25 mg tablet See Rx Instructions .Route 03/29/24 06/26/24 Rx .COMPLEX #25 tabs atorvastatin 40 mg tablet See Rx Instructions .Route 06/10/24 06/26/24 Rx .COMPLEX #90 tabs New Prescriptions to Start Prescriptions: Allergies Allergy/AdvReac Type Severity Reaction Status Date / Time morphine Allergy Unknown Verified 06/26/24 10:43 allergy reaction propoxyphene [From Darvon] Allergy Unknown Verified 06/26/24 10:43 allergy reaction thimerosal Allergy Unknown Verified 06/26/24 10:43 [From Merthiolate allergy (thimerosal)] reaction Assessment and Plan *Assessment and plan (1) Piriformis syndrome of right side: Status: Acute Category: Medical Code(s): G57.01 - Lesion of sciatic nerve, right lower limb (2) Myofascial pain: Status: Acute Category: Medical Code(s): M79.18 - Myalgia, other site Plan Patient is experiencing worsening pain in and around her right buttocks with point tenderness along her right piriformis muscle. I have discussed with the patient that she may benefit from a right piriformis injection. Risk and benefits were discussed with the patient and she would like to proceed forward with this plan of care. Patient has tried and failed conservative therapy including continued at home stretching exercise for longer than 6 weeks. Patient will be scheduled for a right piriformis injection. Patient has been instructed to contact the clinic with any concerns before the next appointment. Dr. Alonzo has reviewed this note and agrees with this plan of care. This note was dictated using voice recognition software and make contain errors or omissions. All injections are used with Lidocaine or Bupivacaine and Depo Medrol.
== END 2024-06-26 23:59 | disposition home or self-care (01) ==
LOC: SC.PAIN 09:57
PROVIDERS: PCP Internal Medicine; Visit Provider Nurse Practitioner Family
DX: G57.01 Lesion of sciatic nerve, right lower limb (principal); M79.18 Myalgia, other site; Z96.653 Presence of artificial knee joint, bilateral; Z73.89 Other problems related to life management difficulty; Z79.899 Other long term (current) drug therapy
CPT/HCPCS: 99212; G0463

== ENCOUNTER 2024-07-15 09:36 | Day surgery (SDC) | payer MEDICARE, OTHER, SELFPAY ==
[2024-07-15 09:55] VITALS: BP 157/74; PULSE 76; RESP 16; TEMP 36.7; O2SAT 98; BMI 25.4
[2024-07-15 10:13] VITALS: BP 178/70; PULSE 55; RESP 18; O2SAT 98
[2024-07-15] MEDS: methylPREDNISolone ACETATE 80MG/ML VIAL 80 MG (10:13)
[2024-07-15] MEDS: BUPIVACAINE 0.25% 10ML INJ 25 MG IJ (10:14)
[2024-07-15] MEDS: LIDOCAINE 1% 5ML PF VIAL 5 ML (10:14)
[2024-07-15 10:17] VITALS: BP 152/78; PULSE 61; RESP 16; TEMP 36.7; O2SAT 96
[2024-07-15] MEDS: IOPAMIDOL-200 (41%);10ML VIAL 10 ML IV (10:17)
--- NOTE | 2024-07-15 11:17 | EXP.PAIN.PRO ---
Procedure Date: 07/15/24 Time: 09:30 Anesthesiologist:: Lefty Bowman CRNA Complications:: None Pre-procedure Diagnosis:: Right piriformis syndrome. Post-procedure Diagnosis:: Same. Indications for Procedure:: Patient is a pleasant 78-year-old female comes our clinic today for a right piriformis injection. She describes low right buttock pain as constant, dull, aching. Patient also reports right lateral hip pain as well. I informed the patient she may have 2 separate pathologies. We discussed right lateral trochanteric bursitis. Also, right piriformis syndrome. She rates her pain 8/10. Procedure Details:: Details of the procedure were explained to the patient. The patient taken procedure and placed in prone position on fluoroscopy table. They over the right buttock was cleansed using chlorhexidine as a cleansing solution. Using fluoroscopy guidance and a 3-1/2 inch 22-gauge spinal needle the right piriformis muscle was accessed with ease. Needle position was confirmed using contrast dye 0.5 cc and a noted lateral spread. At this time after negative aspiration 4 cc of 1% lidocaine and 40 mg of Depo-Medrol was injected. Patient tolerated procedure without difficulty. There are no complications. Plan and Disposition:: Patient was discharged without incident.
== END 2024-07-15 10:17 | disposition home or self-care (01) ==
PROVIDERS: PCP Internal Medicine; Visit Provider Nurse Anesthetist, Certified Registered
DX: G57.01 Lesion of sciatic nerve, right lower limb (principal); M79.18 Myalgia, other site
CPT/HCPCS: 20552; 77002; J1010; Q9966

== ENCOUNTER 2024-08-04 15:24 | Outpatient (POV) | payer MEDICARE, OTHER, SELFPAY ==
[2024-08-04 15:36] VITALS: BP 139/57; PULSE 58; RESP 18; O2SAT 95; BMI 25.4
--- NOTE | 2024-08-04 15:48 | A.OFFVIS_ITS ---
[facility] Disclaimer: The information contained in this section may have been updated after the patient was seen, as this information can be updated by other users. Medical History Thyroid nodule Memory loss Ataxia, unspecified Lumbago with sciatica, left side Primary generalized (osteo)arthritis Vitamin D deficiency, unspecified Abnormal electrocardiogram [ECG] [EKG] Fibromyalgia Abnormal EKG Diastolic dysfunction HTN (hypertension) HLD (hyperlipidemia) Gastroesophageal reflux disease Surgical History Presence of artificial knee joint, bilateral History of cholecystectomy H/O total hysterectomy Family History Other Unknown family medical history Social History Smoking Status: Never smoker second hand exposure: No alcohol intake: never substance use type: denies use current occupational status: retired Travel in the last 8 weeks: None household members: spouse housing: house current occupational exposures/hazards: No caffeine: Yes PM Subjective & Objective Subjective Subjective:: Patient is a pleasant 78-year-old female who presents today for follow-up of right piriformis injection on 07/15/2024. She rates her pain today an 8 out of 10. Patient states that she had been doing wonderful with this injection and rated at least 80% improvement. Patient states she was moving around easier with overall improved function. Patient states that then she was helping her move furniture and she pulled a muscle in her low back. Patient states that she has aching, throbbing sensation with tightness across her low back. Patient does state the pain is interfering with her ability to perform activities of daily living such as cooking and cleaning. Patient states that she did go to her PCP who did send in a prescription of tizanidine along with her other medicines such as gabapentin and ibuprofen. She does state that this has helped some however the muscle relaxer seem to make her feel wiped out with little energy. Patient does state that she is leaving on a cruise next and is really concerned with the pain going on right now. She is interested in any help we may be able to provide. She does state that she has been using her compounded cream and its helped significantly as well. Her August has been reviewed and is appropriate. Review of Systems: General: No recent weight changes, no fever, no sleep disturbances Respiratory: No cough, no shortness of air, no recurring pulmonary infections Cardiovascular/peripheral vascular: No chest pain, no palpitations, no edema, no shortness of breath Gastrointestinal: No new onset incontinence, normal bowel movements reported Genitourinary: No new onset incontinence Musculoskeletal: Low back pain Psychiatric: [Normal mood/affect] Neurological: [Denies weakness in extremities], [denies balance issues] Pain at rest (0-10 scale): 8 Objective Objective:: Physical Exam: General: Alert and oriented x3, no acute distress, pleasant and cooperative Lungs: Respirations even and unlabored, symmetrical chest expansion Eyes: PERRL Musculoskeletal: Flexion and extension of lumbar [spine] somewhat guarded secondary to pain, [antalgic gait noted] point tenderness along bilateral lumbar paraspinous muscles Neurological: Speech clear, no gross sensory deficit Has patient had previous pain injection?: Yes Percent improvement in pain since last injection: 80% Conservative treatment options previously tried: Home exercise plan Length of treatment: Longer than 12 weeks Meds Home Medications and Allergies Home Medications ?Medication ?Instructions ?Recorded ?Confirmed ?Type aspirin 81 mg tablet,delayed 81 mg PO DAILY Heart disease 04/22/18 08/04/24 History release fwxueuws-vzdh-cabn 8 mg-folic 400 1 tab PO DAILY supplement 09/17/20 08/04/24 History mcg-K 50 mcg-lutein 300 mcg tablet (Centrum Silver Women) naproxen sodium 220 mg capsule 220 mg PO DAILY PRN headache 09/17/20 08/04/24 History (Aleve) hydrocortisone 2.5 % topical cream 1 applic topical DIRECTED Skin 10/31/21 08/04/24 History Condition bupropion HCl 150 mg tablet,12 hr 150 mg PO DAILY 04/26/22 08/04/24 History sustained-release citalopram 10 mg tablet 20 mg PO DAILY mood 05/15/23 08/04/24 History clobetasol 0.05 % topical cream 1 applic topical DAILY PRN eczema 05/15/23 08/04/24 Rx #30 grams gabapentin 100 mg capsule 100 mg PO BID PRN nerve pain 05/15/23 08/04/24 History ibuprofen 600 mg tablet 600 mg PO DIRECTED PRN Pain 05/15/23 08/04/24 History metoprolol succinate 25 mg 25 mg PO DAILY #90 tabs 12/10/23 08/04/24 Rx tablet,extended release 24 hr cholecalciferol (vitamin D3) 75 4,000 unit PO DAILY Supplement 03/11/24 08/04/24 History mcg (3,000 unit) tablet losartan 100 mg tablet 100 mg PO DAILY High blood pressure 03/11/24 08/04/24 History omeprazole 20 mg capsule,delayed 20 mg PO DAILY 03/11/24 08/04/24 History release meclizine 25 mg tablet See Rx Instructions .Route 03/29/24 08/04/24 Rx .COMPLEX #25 tabs atorvastatin 40 mg tablet See Rx Instructions .Route 06/10/24 08/04/24 Rx .COMPLEX #90 tabs New Prescriptions to Start Prescriptions: Allergies Allergy/AdvReac Type Severity Reaction Status Date / Time morphine Allergy Unknown Verified 07/23/24 14:26 allergy reaction propoxyphene [From Darvon] Allergy Unknown Verified 07/23/24 14:26 allergy reaction thimerosal Allergy Unknown Verified 07/23/24 14:26 [From Merthiolate allergy (thimerosal)] reaction Assessment and Plan *Assessment and plan (1) Myofascial pain: Status: Acute Category: Medical Code(s): M79.18 - Myalgia, other site Plan Patient is experiencing significant pain in and around her low back with limited range of motion. Patient did have point tenderness on her bilateral lumbar paraspinous muscles. I did discuss with the patient that we may be able to get her in to get trigger point injections around this area. Risk and benefits were discussed with the patient and she would like to proceed forward with this plan of care. I will also send in a new muscle relaxer of methocarbamol 500 mg twice daily with a 2-week supply. Patient will return to clinic for bilateral lumbar paraspinous trigger point injections. These injections will be done without ultrasound or fluoroscopy. Patient has been instructed to contact the clinic with any concerns before the next appointment. Dr. Alonzo has reviewed this note and agrees with this plan of care. This note was dictated using voice recognition software and make contain errors or omissions. All injections are used with Lidocaine or Bupivacaine and Depo Medrol.
== END 2024-08-04 23:59 | disposition home or self-care (01) ==
PROVIDERS: PCP Internal Medicine; Visit Provider Nurse Practitioner Family
DX: M79.18 Myalgia, other site (principal); Z96.653 Presence of artificial knee joint, bilateral; Z73.89 Other problems related to life management difficulty
CPT/HCPCS: 99212; G0463

== ENCOUNTER 2024-08-12 14:13 | Day surgery (SDC) | payer MEDICARE, OTHER, SELFPAY ==
[2024-08-12 14:25] VITALS: BP 143/73; PULSE 60; RESP 16; TEMP 36.8; O2SAT 94; BMI 25.4
--- NOTE | 2024-08-12 14:33 | P.PCN_ITS ---
Procedure Date: 08/12/24 Time: 14:35 Anesthesiologist:: Lefty Bowman CRNA Complications:: None Pre-procedure Diagnosis:: Myofascial pain bilateral lumbar paraspinous muscle. Post-procedure Diagnosis:: Same. Indications for Procedure:: Patient is a very pleasant 78-year-old female who comes our clinic today for bilateral lumbar paraspinous muscle trigger point injections. Patient describes low lumbar muscular pain as tight, aching. She rates her pain 6/10. Procedure Details:: Details of the procedure explained to the patient. The patient taken procedure placed in the seated position. The over the lumbar spine was cleaned using chl orhexidine as a cleansing solution. Using a 25-gauge inch and half needle 3 areas of the right lumbar paraspinous muscle was injected using 3 cc at each location. The injectate is 0.25% Marcaine +1% lidocaine and 40 mg of Depo- Medrol. The same procedure was carried out over the left lumbar paraspinous muscle. Patient tolerated procedure without difficulty. There are no complications. Plan and Disposition:: Patient was discharged without incident.
[2024-08-12] MEDS: methylPREDNISolone ACETATE 80MG/ML VIAL 80 MG (14:36)
[2024-08-12] MEDS: LIDOCAINE 1% 5ML PF VIAL 5 ML (14:36)
[2024-08-12] MEDS: BUPIVACAINE 0.25% 10ML INJ 25 MG IJ (14:36)
[2024-08-12 14:37] VITALS: BP 152/71; PULSE 58; RESP 18; O2SAT 97
[2024-08-12 14:38] VITALS: BP 152/71; PULSE 58; RESP 18; O2SAT 96
[2024-08-12 14:44] VITALS: BP 144/69; PULSE 58; RESP 16; O2SAT 100
== END 2024-08-12 14:44 | disposition home or self-care (01) ==
PROVIDERS: PCP Internal Medicine; Visit Provider Nurse Anesthetist, Certified Registered
DX: M79.18 Myalgia, other site (principal)
CPT/HCPCS: 20552; J1010

== ENCOUNTER 2024-08-29 13:27 | Outpatient (POV) | payer MEDICARE, OTHER, SELFPAY ==
[2024-08-29 13:40] VITALS: BP 155/66; PULSE 60; RESP 16; O2SAT 96; BMI 27.2
--- NOTE | 2024-08-29 14:08 | XR_ITS ---
FINAL REPORT TECHNIQUE: 5 views CLINICAL HISTORY: LBP FINDINGS: There is no fracture present. There is no malalignment. There is moderate disc space narrowing at L5-S1 with grade 1 spondylolisthesis. There is moderate facet sclerosis of the lower lumbar spine. Mild indentation is seen of the superior endplates of L1 and L3. Findings are new at L1 and worst at L3. IMPRESSION: New indentation of the superior endplate of L1 and worsening indentation of the superior endplate of L3. Consider MRI for further evaluation. Reviewed, Interpreted and Dictated by Ammon Darnell MD Transcribed by Janet Brown Authenticated and [facility]
--- NOTE | 2024-08-29 14:29 | EXP.PAIN.SOA ---
[facility] Disclaimer: The information contained in this section may have been updated after the patient was seen, as this information can be updated by other users. Medical History Thyroid nodule Memory loss Ataxia, unspecified Lumbago with sciatica, left side Primary generalized (osteo)arthritis Vitamin D deficiency, unspecified Abnormal electrocardiogram [ECG] [EKG] Fibromyalgia Abnormal EKG Diastolic dysfunction HTN (hypertension) HLD (hyperlipidemia) Gastroesophageal reflux disease Surgical History Presence of artificial knee joint, bilateral History of cholecystectomy H/O total hysterectomy Family History Other Unknown family medical history Social History Smoking Status: Never smoker second hand exposure: No alcohol intake: never substance use type: denies use current occupational status: other household members: spouse housing: house current occupational exposures/hazards: No caffeine: Yes PM Subjective & Objective Subjective Subjective:: Patient is a pleasant 79-year-old female who presents today for follow-up of trigger point injections of her bilateral lumbar paraspinous muscles on 08/12/2024. Today she does state that she had approximately 80 to 85% improvement following these injections however this morning she ended up picking up a suitcase at her house and heard a crack sensation. Patient has been experiencing pain all around her upper low back with spasms. Patient is worried she may have done something more substantial. She is prescribed compounded cream from our office. At our last visit we did prescribe her methocarbamol 500 mg twice a day. She states that this did help and denies any side effects. Her August has been reviewed and is appropriate. Review of Systems: General: No recent weight changes, no fever, no sleep disturbances Respiratory: No cough, no shortness of air, no recurring pulmonary infections Cardiovascular/peripheral vascular: No chest pain, no palpitations, no edema, no shortness of breath Gastrointestinal: No new onset incontinence, normal bowel movements reported Genitourinary: No new onset incontinence Musculoskeletal: Low back pain Psychiatric: [Normal mood/affect] Neurological: [Denies weakness in extremities], [denies balance issues] Pain at rest (0-10 scale): 4 Objective Objective:: Physical Exam: General: Alert and oriented x3, no acute distress, pleasant and cooperative Lungs: Respirations even and unlabored, symmetrical chest expansion Eyes: PERRL Musculoskeletal: Flexion and extension of lumbar [spine] somewhat guarded secondary to pain, [antalgic gait noted] Neurological: Speech clear, no gross sensory deficit Has patient had previous pain injection?: Yes Percent improvement in pain since last injection: 80 to 85% Conservative treatment options previously tried: Home exercise plan Length of treatment: Longer than 12 weeks Meds Home Medications and Allergies Home Medications ?Medication ?Instructions ?Recorded ?Confirmed ?Type aspirin 81 mg tablet,delayed 81 mg PO DAILY Heart disease 04/22/18 08/29/24 History release twyzlnfk-vgxl-sfqt 8 mg-folic 400 1 tab PO DAILY supplement 09/17/20 08/29/24 History mcg-K 50 mcg-lutein 300 mcg tablet (Centrum Silver Women) naproxen sodium 220 mg capsule 220 mg PO DAILY PRN headache 09/17/20 08/29/24 History (Aleve) hydrocortisone 2.5 % topical cream 1 applic topical DIRECTED Skin 10/31/21 08/29/24 History Condition clobetasol 0.05 % topical cream 1 applic topical DAILY PRN eczema 05/15/23 08/29/24 Rx #30 grams gabapentin 100 mg capsule 100 mg PO BID PRN nerve pain 05/15/23 08/29/24 History ibuprofen 600 mg tablet 600 mg PO DIRECTED PRN Pain 05/15/23 08/29/24 History metoprolol succinate 25 mg 25 mg PO DAILY #90 tabs 12/10/23 08/29/24 Rx tablet,extended release 24 hr cholecalciferol (vitamin D3) 75 4,000 unit PO DAILY Supplement 03/11/24 08/29/24 History mcg (3,000 unit) tablet losartan 100 mg tablet 100 mg PO DAILY High blood pressure 03/11/24 08/29/24 History omeprazole 20 mg capsule,delayed 20 mg PO DAILY 03/11/24 08/29/24 History release meclizine 25 mg tablet See Rx Instructions .Route 03/29/24 08/29/24 Rx .COMPLEX #25 tabs atorvastatin 40 mg tablet See Rx Instructions .Route 06/10/24 08/29/24 Rx .COMPLEX #90 tabs methocarbamol 500 mg tablet 500 mg PO BID #28 tabs 08/04/24 08/29/24 Rx bupropion HCl 150 mg tablet,12 hr 150 mg PO DAILY #90 ea 08/12/24 08/29/24 Rx sustained-release citalopram 20 mg tablet See Rx Instructions .Route 08/15/24 08/29/24 Rx .COMPLEX #90 tabs New Prescriptions to Start Prescriptions: Allergies Allergy/AdvReac Type Severity Reaction Status Date / Time morphine Allergy Unknown Verified 07/23/24 14:26 allergy reaction propoxyphene (From Darvon) Allergy Unknown Verified 07/23/24 14:26 allergy reaction thimerosal (From Merthiolate Allergy Unknown Verified 07/23/24 14:26 (thimerosal)) allergy reaction Assessment and Plan *Assessment and plan (1) Degenerative disc disease, lumbar: Status: Acute Category: Medical Code(s): M51.36 - Other intervertebral disc degeneration, lumbar region Plan Due to the patient feeling a popping/cracking sensation this morning I will order x-ray imaging of her lumbar spine to confirm no acute fractures. patient will follow-up in 1 month as long as there is no acute changes from the lumbar x-ray. Patient agrees with this plan of care. Patient has been instructed to contact the clinic with any concerns before the next appointment. Dr. Alonzo has reviewed this note and agrees with this plan of care. This note was dictated using voice recognition software and make contain errors or omissions. All injections are used with Lidocaine or Bupivacaine and Depo Medrol.
== END 2024-08-29 23:59 | disposition home or self-care (01) ==
LOC: SC.PAIN 13:29 → RAD 14:05
PROVIDERS: PCP Internal Medicine; Visit Provider Nurse Practitioner Family
DX: M51.369 Other intervertebral disc degeneration, lumbar region without mention of lumbar back pain or lower extremity pain (principal)
CPT/HCPCS: 72110; 99212; G0463

== ENCOUNTER 2024-09-08 09:35 | Outpatient (CLI) | payer MEDICARE, OTHER, SELFPAY ==
[2024-09-08 17:20] LABS: Basophils # 0.1 K/mm3 (0-0.2); Basophils % 1.4 % (0.1-2.0); Eosinophils # 0.3 K/mm3 (0.0-0.4); Eosinophils % 5.9 % (0.1-12.0); Hematocrit 39.1 % (37.0-47.0); Hemoglobin 13.3 g/dL (12.2-16.2); Lymphocytes # 2.1 K/mm3 (0.7-4.5); Lymphocytes % 37.6 % (10-50); Mean Corpuscular HGB Conc 34.1 g/dL (31.8-35.4); Mean Corpuscular Hemoglobin 30.5 pg (27.0-31.2); Mean Corpuscular Volume 89.5 fl (81-99); Monocytes # 0.4 K/mm3 (0.1-1.0); Monocytes % 7.4 % (1.7-9.3); Neutrophils # 2.6 K/mm3 (1.8-7.8); Neutrophils % 47.7 % (37.0-80.0); Platelet Count 264 K/mm3 (142-424); Red Blood Count 4.37 M/mm3 (4.20-5.40); Red Cell Distribution Width 13.6 % (11.5-17.5); White Blood Count 5.5 K/mm3 (4.8-10.8)
[2024-09-08 18:10] LABS: Albumin Level 3.9 g/dl (3.5-5.0); Chloride 106 mmol/L (98-107); Potassium 4.5 mmoL/L (3.5-5.1); Sodium 140 mmol/L (136-145)
[2024-09-08 18:12] LABS: Blood Urea Nitrogen 19 mg/dl (7-17); Estimated Glomerular Filt Rate 96 ml/min (>60); GFR (African American) 117 ML/MIN (>60)
[2024-09-08 18:13] LABS: Alanine Aminotransferase 33 U/L (12-78); Albumin/Globulin Ratio 1.4 (1.1-1.8); Alkaline Phosphatase 132 U/L (38-126); Anion Gap 10.5 mEq/L (5-15); Aspartate Amino Transferase 38 U/L (14-36); Bilirubin,Total 0.9 mg/dl (0.2-1.3); Calcium 9.1 mg/dl (8.4-10.2); Carbon Dioxide 28 mmol/L (22.0-30.0); Chol/HDL Ratio 2.8 (1-3.5); Cholesterol 154 mg/dl (140-200); Globulin 2.7 g/dL (1.3-3.2); Glucose 59 mg/dl (74-100); HDL Cholesterol 55 mg/dl (40-60); Total Protein,Serum 6.6 g/dl (6.3-8.2); Triglycerides 78 mg/dl (30-150); VLDL Cholesterol 16 mg/dL (0-40)
[2024-09-08 18:24] LABS: Direct LDL Cholesterol 81.12 mg/dL (100-129)
== END 2024-09-08 23:59 | disposition home or self-care (01) ==
LOC: LAB.DROPOF 09-09 11:52
PROVIDERS: PCP Internal Medicine; Visit Provider Internal Medicine
DX: E78.5 Hyperlipidemia, unspecified (principal); I10 Essential (primary) hypertension
CPT/HCPCS: 80053; 80061; 85025

== ENCOUNTER 2024-09-22 08:05 | Outpatient (CLI) | payer MEDICARE, OTHER, SELFPAY ==
--- NOTE | 2024-09-22 08:09 | MR_ITS ---
FINAL REPORT TECHNIQUE: Multiplanar MR without gadolinium enhancement CLINICAL HISTORY: LBP/ABN SPINE XRAY lower back pain , unsure what she did to hurt it COMPARISON: CT of the lumbar spine dated 01/18/2023 FINDINGS: Sagittal images reveal a mild compression fracture of L1 with bone marrow edema, and 30% loss of vertebral body height. This fracture appears acute or subacute. There is a mild wedge compression fracture of L3, with mild further loss of height since the prior CT. Minimal edema is present consistent with a late subacute fracture. There is grade 1-2 spondylolisthesis of L5 on S1, stable. T12-L1: A minimal annular bulge is present without central canal stenosis. L1-2: No evidence of central canal stenosis or neural foraminal narrowing. L2-3: No evidence of central canal stenosis or neural foraminal narrowing. L3-4: A mild annular bulge is present with mild facet arthropathy and mild neural foraminal narrowing. L4-5: A moderate annular bulge is present with advanced facet arthropathy and moderate canal stenosis as well as moderate bilateral neural foraminal narrowing. L5-S1: A mild annular bulge is present with severe facet arthropathy, mild central canal stenosis, and moderate bilateral neural foraminal narrowing. IMPRESSION: Mild compression fracture at the L1 level, acute or subacute, with 30% loss of height, new since the prior CT of 01/18/2023. The mild wedge compression fracture of L3 remains present, although there is mild further loss of height since the prior CT. Grade 1-2 spondylolisthesis at the L5-S1 level, stable. Multilevel lumbar degenerative change, most severe at the L4-5 level as described. Reviewed, Interpreted and Dictated by Kelsie Sauceda MD Transcribed by Nichole Hennessy Authenticated and [facility]
== END 2024-09-22 23:59 | disposition home or self-care (01) ==
LOC: RAD 08:06
PROVIDERS: PCP Internal Medicine; Visit Provider Nurse Practitioner Family
DX: M54.50 Low back pain, unspecified (principal); R93.89 Abnormal findings on diagnostic imaging of other specified body structures
CPT/HCPCS: 72148

== ENCOUNTER 2024-09-26 14:14 | Outpatient (POV) | payer MEDICARE, OTHER, SELFPAY ==
[2024-09-26 14:41] VITALS: BP 153/69; PULSE 60; RESP 16; O2SAT 96; BMI 26.2
--- NOTE | 2024-09-26 15:15 | A.OFFVIS_ITS ---
[facility] Disclaimer: The information contained in this section may have been updated after the patient was seen, as this information can be updated by other users. Medical History Thyroid nodule Memory loss Ataxia, unspecified Lumbago with sciatica, left side Primary generalized (osteo)arthritis Vitamin D deficiency, unspecified Abnormal electrocardiogram [ECG] [EKG] Fibromyalgia Abnormal EKG Diastolic dysfunction HTN (hypertension) HLD (hyperlipidemia) Gastroesophageal reflux disease Surgical History Presence of artificial knee joint, bilateral History of cholecystectomy H/O total hysterectomy Family History Other Unknown family medical history Social History Smoking Status: Never smoker second hand exposure: No alcohol intake: never substance use type: denies use current occupational status: other Travel in the last 8 weeks: None household members: spouse housing: house current occupational exposures/hazards: No caffeine: Yes Have you lived/traveled outside [place] in past 30 days?: No Contact w/someone who lives/traveled outside [place] past 30 days?: No Exposure to someone with infectious disease in past 14 days?: No Do you have a fever (greater than 100.4 F or 38 C)?: No Have you tested positive for COVID-19: No Exposed to someone with COVID-19 in past 14 days?: No Do you have a sore throat?: No Do you have a cough?: No Do you have any weakness?: No Do you have any diarrhea?: No Are you experiencing any unusual bleeding?: No Do you have any muscle aches/pain?: No Do you have any abdominal pain?: No Are you experiencing loss of taste or smell?: No PM Subjective & Objective Subjective Subjective:: Patient is a pleasant 79-year-old female who presents today for follow-up of lumbar MRI. She does rate her pain today a 9 out of 10. She denies any new trauma or injury. She is still having pain all across to her upper low back and states that it is very tender and she has a lot of difficulty performing activities of daily living such as cooking and cleaning. Patient states she just cannot stand for long periods of time due to the worsening pain as well as evening stretching to reach for something causes severe pain. Patient does stat e that she has relied more on Tylenol and her compounded cream. Patient states she has a very sensitive stomach and cannot tolerate NSAIDs. Patient does also state that the methocarbamol 500 mg twice a day that we have prescribed has helped some however did start bothering her stomach little so she has not used it as much. Patient does state that she has been diagnosed with osteopenia in the past and that she is on D2 4000 units daily. She states that she ended up stop seeing her refuse collector and has not had a DEXA scan for some time. Patient does states she has a history of family osteoporosis. Her August has been reviewed and is appropriate. Review of Systems: General: No recent weight changes, no fever, no sleep disturbances Respiratory: No cough, no shortness of air, no recurring pulmonary infections Cardiovascular/peripheral vascular: No chest pain, no palpitations, no edema, no shortness of breath Gastrointestinal: No new onset incontinence, normal bowel movements reported Genitourinary: No new onset incontinence Musculoskeletal: Low back pain, rib pain Psychiatric: [Normal mood/affect] Neurological: [Denies weakness in extremities], [denies balance issues] Pain at rest (0-10 scale): 9 Objective Objective:: Physical Exam: General: Alert and oriented x3, no acute distress, pleasant and cooperative Lungs: Respirations even and unlabored, symmetrical chest expansion Eyes: PERRL Musculoskeletal: Flexion and extension of lumbar [spine] somewhat guarded secondary to pain, [antalgic gait noted] point tenderness along upper lumbar spine Neurological: Speech clear, no gross sensory deficit FINDINGS: Sagittal images reveal a mild compression fracture of L1 with bone marrow edema, and 30% loss of vertebral body height. This fracture appears acute or subacute. There is a mild wedge compression fracture of L3, with mild further loss of height since the prior CT. Minimal edema is present consistent with a late subacute fracture. There is grade 1-2 spondylolisthesis of L5 on S1, stable. T12-L1: A minimal annular bulge is present without central canal stenosis. L1-2: No evidence of central canal stenosis or neural foraminal narrowing. L2-3: No evidence of central canal stenosis or neural foraminal narrowing. L3-4: A mild annular bulge is present with mild facet arthropathy and mild neural foraminal narrowing. L4-5: A moderate annular bulge is present with advanced facet arthropathy and moderate canal stenosis as well as moderate bilateral neural foraminal narrowing. L5-S1: A mild annular bulge is present with severe facet arthropathy, mild central canal stenosis, and moderate bilateral neural foraminal narrowing. IMPRESSION: Mild compression fracture at the L1 level, acute or subacute, with 30% loss of height, new since the prior CT of 01/18/2023. The mild wedge compression fracture of L3 remains present, although there is mild further loss of height since the prior CT. Grade 1-2 spondylolisthesis at the L5-S1 level, stable. Multilevel lumbar degenerative change, most severe at the L4-5 level as described. Reviewed, Interpreted and Dictated by Kelsie Sauceda MD Transcribed by Nichole Hennessy Authenticated and [facility] Has patient had previous pain injection?: No Conservative treatment options previously tried: Home exercise plan Length of treatment: Longer than 12 weeks Meds Home Medications and Allergies Home Medications ?Medication ?Instructions ?Recorded ?Confirmed ?Type aspirin 81 mg tablet,delayed 81 mg PO DAILY Heart disease 04/22/18 09/26/24 History release [id number] 8 mg-folic 400 1 tab PO DAILY supplement 09/17/20 09/26/24 History mcg-K 50 mcg-lutein 300 mcg tablet (Centrum Silver Women) naproxen sodium 220 mg capsule 220 mg PO DAILY PRN headache 09/17/20 09/26/24 History (Aleve) hydrocortisone 2.5 % topical cream 1 applic topical DIRECTED Skin 10/31/21 09/26/24 History Condition clobetasol 0.05 % topical cream 1 applic topical DAILY PRN eczema 05/15/23 09/26/24 Rx #30 grams gabapentin 100 mg capsule 100 mg PO BID PRN nerve pain 05/15/23 09/26/24 History ibuprofen 600 mg tablet 600 mg PO DIRECTED PRN Pain 05/15/23 09/26/24 History metoprolol succinate 25 mg 25 mg PO DAILY #90 tabs 12/10/23 09/26/24 Rx tablet,extended release 24 hr cholecalciferol (vitamin D3) 75 4,000 unit PO DAILY Supplement 03/11/24 09/26/24 History mcg (3,000 unit) tablet meclizine 25 mg tablet See Rx Instructions .Route 03/29/24 09/26/24 Rx .COMPLEX #25 tabs atorvastatin 40 mg tablet See Rx Instructions .Route 06/10/24 09/26/24 Rx .COMPLEX #90 tabs methocarbamol 500 mg tablet 500 mg PO BID #28 tabs 08/04/24 09/26/24 Rx bupropion HCl 150 mg tablet,12 hr 150 mg PO DAILY #90 ea 08/12/24 09/26/24 Rx sustained-release citalopram 20 mg tablet See Rx Instructions .Route 08/15/24 09/26/24 Rx .COMPLEX #90 tabs omeprazole 20 mg capsule,delayed 20 mg PO DAILY #30 caps 09/11/24 09/26/24 Rx release losartan 100 mg tablet See Rx Instructions .Route 09/16/24 09/26/24 Rx .COMPLEX #90 tabs New Prescriptions to Start Prescriptions: Allergies Allergy/AdvReac Type Severity Reaction Status Date / Time morphine Allergy Unknown Verified 09/08/24 09:17 allergy reaction propoxyphene (From Darvon) Allergy Unknown Verified 09/08/24 09:17 allergy reaction thimerosal (From Merthiolate Allergy Unknown Verified 09/08/24 09:17 (thimerosal)) allergy reaction Assessment and Plan *Assessment and plan (1) Compression fracture of L1 lumbar vertebra: Status: Acute Category: Medical Code(s): S32.010A - Wedge compression fracture of first lumbar vertebra, initial encounter for closed fracture Plan Patient is still experiencing significant pain related to an acute compression fracture of L1 that is paper cone machine tender to touch around this area. I did review over her MRI findings and did discuss that I do believe she would benefit from a kyphoplasty. Risk and benefits were discussed with the patient and she would like to proceed forward with this plan of care. Patient has tried and failed conservative therapy including oral medications, heat, ice, topicals, at home stretching and exercise since August 29 when she had the injury. 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 Patient's MRI did show edema present at the L1 compression fracture. I have discussed with the patient that since she has already been diagnosed with o steopenia years ago that we will order an updated DEXA scan to confirm whether or not osteoporosis is present and if she needs to be put on a stronger medication other than [id number] vitamin D. Patient agrees with this plan of care. Patient will be submitted for a L1 kyphoplasty under fluoroscopy. Patient has been instructed to contact the clinic with any concerns before the next appointment. Dr. Alonzo has reviewed this note and agrees with this plan of care. This note was dictated using voice recognition software and make contain errors or omissions. All injections are used with Lidocaine, Bupivacaine and Depo Medrol. Occasionally urine drug screen is needed to verify patient's compliance with our office pain contract. This is ordered based off specific treatments related to chronic pain with the potential to abuse certain medications.
== END 2024-09-26 23:59 | disposition home or self-care (01) ==
LOC: SC.PAIN 14:16
PROVIDERS: PCP Internal Medicine; Visit Provider Nurse Practitioner Family
DX: S32.010A Wedge compression fracture of first lumbar vertebra, initial encounter for closed fracture (principal); Z96.653 Presence of artificial knee joint, bilateral; Z73.89 Other problems related to life management difficulty; Z79.899 Other long term (current) drug therapy
CPT/HCPCS: 99212; G0463

== ENCOUNTER 2024-10-07 08:52 | Outpatient (CLI) | payer MEDICARE, OTHER, SELFPAY ==
--- NOTE | 2024-10-07 08:56 | XR_ITS ---
FINAL REPORT TECHNIQUE: Bone densitometry calculations of the lumbar spine and left hip were obtained. CLINICAL HISTORY: [id number] L1 VERTEBRAE COMPARISON: 04/14/2024 FINDINGS: Using L1-4, the bone mineral density of the spine is 0.876 g/cm2, corresponding to T-score of -1.6 and a Z score of 1.1. This is within the range of osteopenia. Using the left hip, the bone mineral density of the femoral neck is 0.593 g/cm2, corresponding to a T-score of -2.3 and a Z-score of 0.0. This is within the range of osteopenia. Using the right hip, the bone mineral density of the femoral neck is 0.568 g/cm?, corresponding to a T-score of -2.5 and a Z-score of -0.3. This is within the range of osteoporosis. NOTE: T-score: Standard deviation compared with peak bone mass of young adult mean. *Following the recommendations of the International Society of Bone densitometry, classification of hip BMD is based on the lower of two T-scores; total hip or femoral neck. IMPRESSION: 1. Bone mineral density of the lumbar spine and left femoral neck within the range of osteopenia. 2. Bone mineral density of the right femoral neck within the range of osteoporosis. Reviewed, Interpreted and Dictated by Mira Menon MD Transcribed by Nichole Hennessy Authenticated and [facility]
== END 2024-10-07 23:59 | disposition home or self-care (01) ==
LOC: RAD 08:53
PROVIDERS: PCP Internal Medicine; Visit Provider Nurse Practitioner Family
DX: S32.010A Wedge compression fracture of first lumbar vertebra, initial encounter for closed fracture (principal)
CPT/HCPCS: 77080

== ENCOUNTER 2024-10-10 11:01 | Outpatient (CLI) | payer MEDICARE, OTHER, SELFPAY ==
--- NOTE | 2024-10-10 11:23 | ECG_ITS ---
APPROVED REPORT Exam: Resting ECG HR:57 bpm ECG Measurements Heart Rate 57 AXES ME 141 P 21 QRSd 125 QRS 1 QT 439 T 48 QTc 434 Conclusion SINUS BRADYCARDIA LEFT BUNDLE BRANCH BLOCK [120+ ms QRS DURATION, 80+ ms Q/S IN V1/V2, 85+ ms R IN I/aVL/V5/V6] ABNORMAL ECG UNCONFIRMED REPORT Electronically signed by : Jose Remy MD 10/11/2024 12:21:18
[2024-10-10 12:56] VITALS: BMI 26.2
[2024-10-10 13:09] LABS: Basophils # 0.1 K/mm3 (0-0.2); Basophils % 1.2 % (0.1-2.0); Eosinophils # 0.3 K/mm3 (0.0-0.4); Eosinophils % 4.2 % (0.1-12.0); Hemoglobin 13.3 g/dL (12.2-16.2); Lymphocytes # 2.5 K/mm3 (0.7-4.5); Lymphocytes % 38.1 % (10-50); Mean Corpuscular Hemoglobin 29.5 pg (27.0-31.2); Mean Corpuscular Volume 84.3 fl (81-99); Mean Platelet Volume 10.6 fl (7.4-10.4); Monocytes # 0.7 K/mm3 (0.1-1.0); Monocytes % 10.8 % (1.7-9.3); Neutrophils % 45.4 % (37.0-80.0); Platelet Count 234 K/mm3 (142-424); Red Blood Count 4.51 M/mm3 (4.20-5.40); Red Cell Distribution Width 12.5 % (11.5-17.5); White Blood Count 6.6 K/mm3 (4.8-10.8)
[2024-10-10 13:13] LABS: Chloride 106 mmol/L (98-107); Sodium 139 mmol/L (136-145)
[2024-10-10 13:14] LABS: Potassium 4.4 mmoL/L (3.5-5.1)
[2024-10-10 13:16] LABS: Blood Urea Nitrogen 16 mg/dl (7-17); Creatinine Clearance Estimated 42 mL/min (50-200); Estimated Glomerular Filt Rate 96 ml/min (>60); GFR (African American) 117 ML/MIN (>60)
[2024-10-10 13:17] LABS: Anion Gap 13.4 mEq/L (5-15); Calcium 9.6 mg/dl (8.4-10.2); Carbon Dioxide 24 mmol/L (22.0-30.0); Glucose 87 mg/dl (74-100)
== END 2024-10-10 23:59 | disposition home or self-care (01) ==
PROVIDERS: PCP Internal Medicine; Visit Provider Anesthesiology
DX: Z01.810 Encounter for preprocedural cardiovascular examination (principal); I44.7 Left bundle-branch block, unspecified; K21.9 Gastro-esophageal reflux disease without esophagitis; R00.1 Bradycardia, unspecified; R94.31 Abnormal electrocardiogram [ECG] [EKG]
CPT/HCPCS: 80048; 85025; 93005

== ENCOUNTER 2024-10-17 09:45 | Inpatient (IN) | payer MEDICARE, OTHER, SELFPAY ==
[2024-10-15 10:53] VITALS: BMI 26.2
[2024-10-17] VITALS (44 sets, daily range): BP systolic 79–175; BP diastolic 39–79; PULSE 64–86; RESP 10–24; TEMP 35.8–37.1; O2SAT 84–98; BMI 27.8; BMI 27.9
[2024-10-17] MEDS: LACTATED RINGERS 1000ML 1,000 ML 25 ML IV (06:27)
[2024-10-17] MEDS: VANCOMYCIN HCL 1,000 MG in 0.9 % SODIUM CHLORIDE 250 ML 125 MG IV (08:08)
[2024-10-17] MEDS: LIDOCAINE 1% W/EPI 1:100,000 20ML VIAL 40 ML (08:34)
--- NOTE | 2024-10-17 09:25 | EXP.ANES.I ---
[facility] Anesthesia Record Part I Anesthesia Record I Intake, IV Amount: 900 Hydration: Adequate Estimated blood loss (mL): 10 Urine output (mL): 0 Blood Pressure: 90/63 SaO2: 98 Pulse Rate: 64 Airway Patency: Patent (Intubated) Respiratory Rate: 10 Temperature: 97.6 F Patient is:: Intubated and Stable Stable to PACU at:: 09:20
--- NOTE | 2024-10-17 09:36 | PC.NURSE ---
09- Dr. Alonzo on the phone with Dr. Purdy r/t to pt needing admission. Dr. Purdy agreeable for admission of this pt. 0931-Contact Pulmonology office per Dr. Alonzo request to speak with Dr. Martinez. Office staff states he is not here yet but they will give him the message to call Dr Alonzo back about pt. 0932- Notified warehouse delivery driver that Dr. Alonzo has spoken with Dr. Purdy and pt is okay to admit. Pt is intubated. Message left for Dr. Martinez with his office staff. States he will get a bed and call back [phone]- Spoke with FELICIANO Stockton OR charge nurse notifying her Dr. Alonzo spoke with Dr. Purdy who is agreeable to admit pt. I have notified warehouse delivery driver of admission of pt. He stated he will call back with a bed. [phone]-warehouse delivery driver called me back at this time states pt will go to room 263 in ICU, states to give staff a few minutes for orders to be entered in the computer and then okay to call report. Notified FELICIANO Stockton OR charge nurse of bed assignment number and to give them a few minutes to look over order and then okay to call report.
--- NOTE | 2024-10-17 09:51 | PC.NURSE ---
Dr. Alonzo speaking with Dr. Martinez on the phone at this time
--- NOTE | 2024-10-17 09:53 | XR_ITS ---
FINAL REPORT CLINICAL HISTORY: intubated FINDINGS: A single view of the chest was obtained. Endotracheal tube tip lies 4 cm superior to the celio. The heart is normal in size. The mediastinum is unremarkable. There is dense airspace opacity in the right perihilar region and medial right lung base consistent with pneumonia. The left lung is clear. There is no pleural effusion. There is no pneumothorax. There is no acute osseous abnormality. IMPRESSION: Right perihilar and medial right lung base pneumonia. Endotracheal tube tip 4 cm superior to the celio. Reviewed, Interpreted and Dictated by Ammon Darnell MD Transcribed by Marie Berman Authenticated and [facility]
--- NOTE | 2024-10-17 09:55 | EXP.OP.NOTE ---
Date of procedure: 10/17/24 Pre-op Diagnosis:: L1 compression fracture acute due to age-related osteoporosis Post-op Diagnosis:: Same Procedure performed:: L1 balloon kyphoplasty Surgeon:: Miguelito Alonzo MD TETRYL SCREEN OPERATOR:: Nacho Wisdom Anesthesia: MAC Estimated blood loss (mL): 5 Clinical Note:: This patient is a pleasant 79-year-old white female who has a age-related acute L1 compression fracture. Patient does have osteopenia. She did this in August. She has increasing pain and is failed all conservative treatments. We will do a balloon kyphoplasty today. Operative findings:: None Operative note:: Informed consent was obtained and risks and benefits of the procedure was explained to the patient. Patient was taken to the OR and was placed prone on the procedure table. The patient was prepped and draped in sterile fashion. I used 2 C arms for AP and lateral view of the L1 vertebral body. The skin and subcutaneous tissues were anesthetized using lidocaine. Bone access trochars were placed through the LEFT and RIGHT pedicle and advanced into the vertebral body. After accessing the vertebral body a balloon was inserted first on the LEFT side followed by the RIGHT side with approximately 3 mL of contrast placed in each balloon with good insufflation. After adequate spread of contrast through the balloon, the balloons were deflated and cement was introduced first on the LEFT side with placement of approximately 3-1/2 mL of cement with good spread throughout the vertebral body and then on the RIGHT side was approximately 3 1/2 mL cement with good spread throughout the vertebral body. There was no extrusion of cement through the lateral clemente, anterior or posterior clemente. Also no extrusion through superior or inferior clemente. The bone access trochars were removed and dressing was placed. At the end of surgery patient did throw up solid food and her sats did decrease. We turned the patient supine and bag mask her saturations back up to the 90s. It was decided to go ahead and intubate the patient and have her evaluated by pulmonology. The patient was admitted and evaluated by the hospitalist and communications senior associate. Condition: stable Disposition: ICU (Patient threw up at the end of surgery she was intubated and evaluated by pulmonology and the hospitalist for aspiration pneumonia.) Complications:: At the end of surgery patient did throw up solid food with a decrease in her saturations. She was then intubated and sent to the ICU to be evaluated by pulmonology and the hospitalist for aspiration pneumonia.
--- NOTE | 2024-10-17 09:57 | ECG_ITS ---
APPROVED REPORT Exam: Resting ECG HR:81 bpm ECG Measurements Heart Rate 81 AXES TN 149 P 40 QRSd 144 QRS 34 QT 413 T 180 QTc 450 Conclusion SINUS RHYTHM LEFT BUNDLE BRANCH BLOCK [120+ ms QRS DURATION, 80+ ms Q/S IN V1/V2, 85+ ms R IN I/aVL/V5/V6] ABNORMAL ECG UNCONFIRMED REPORT Electronically signed by : Jose Remy MD 10/18/2024 08:31:17
--- NOTE | 2024-10-17 09:57 | HMH.PHAINT1 ---
Pharmacy Intervention Comments: HOME MEDICATION LIST VERIFIED USING LIST FROM OUTPATIENT PHARMACY AND PT INTERVIEW
--- NOTE | 2024-10-17 09:58 | P.HP_ITS ---
History of Present Illness *Admission Date: 10/17/24 *Reason for visit:: Aspiration, respiratory failure *History of present illness: Mrs. Hansen is a 79-year-old female with history of L1 compression fracture. Presented today for elective kyphoplasty. Tolerated procedure well however in postop had an aspiration event. Had not eaten since 6:00 last night but still threw up solid chunks of food. Aspirated causing acute respiratory failure. Was intubated emergently in PACU for airway protection and due to hypoxia. Necessitating admission to ICU for further management. Pulmonology consulted to assist with care Reviewed history with . Patient does not have significant history of diabetes, kidney disease, lung disease, cancer. Would like her to be full code. Was doing well other than her back pain prior to today. Last ate at 6 PM night before presentation [facility] Disclaimer: The information contained in this section may have been updated after the patient was seen, as this information can be updated by other users. Medical History Pneumonia Thyroid nodule Memory loss Ataxia, unspecified Lumbago with sciatica, left side Primary generalized (osteo)arthritis Vitamin D deficiency, unspecified Abnormal electrocardiogram [ECG] [EKG] Fibromyalgia Abnormal EKG Diastolic dysfunction HTN (hypertension) HLD (hyperlipidemia) Gastroesophageal reflux disease Surgical History History of tonsillectomy Presence of artificial knee joint, bilateral History of cholecystectomy H/O total hysterectomy Family History Other Family history of Alzheimer disease Family history of cancer Social History Smoking Status: Never smoker second hand exposure: No alcohol intake: never substance use type: denies use current occupational status: other Travel in the last 8 weeks: Outside the continental [place] household members: spouse housing: house current occupational exposures/hazards: No caffeine: Yes Have you lived/traveled outside US in past 30 days?: No Contact w/someone who lives/traveled outside US past 30 days?: No Exposure to someone with infectious disease in past 14 days?: No Do you have a fever (greater than 100.4 F or 38 C)?: No Have you tested positive for COVID-19: No Exposed to someone with COVID-19 in past 14 days?: No Do you have a sore throat?: No Do you have a cough?: No Do you have any weakness?: No Are you experiencing any nausea/vomitting?: No Do you have any diarrhea?: No Are you experiencing any unusual bleeding?: No Do you have any muscle aches/pain?: No Do you have any abdominal pain?: No Are you experiencing loss of taste or smell?: No Other Medical History Have you received the Flu Vaccine for this season: No Have you received the Pneumonia Vaccine: Yes Review of Systems Review of Systems Review of systems:: unable to obtain Meds Home Medications and Allergies Home Medications ?Medication ?Instructions ?Recorded ?Confirmed ?Type aspirin 81 mg tablet,delayed 81 mg PO DAILY 04/22/18 10/15/24 History release eoivnqfo-ynbi-ffgr 8 mg-folic 400 1 tab PO DAILY supplement 09/17/20 10/15/24 History mcg-K 50 mcg-lutein 300 mcg tablet (Centrum Silver Women) hydrocortisone 2.5 % topical cream 1 applic topical DIRECTED Skin 10/31/21 10/15/24 History Condition gabapentin 100 mg capsule 100 mg PO BIDP PRN nerve pain 05/15/23 10/17/24 History metoprolol succinate 25 mg 25 mg PO DAILY #90 tabs 12/10/23 10/15/24 Rx tablet,extended release 24 hr cholecalciferol (vitamin D3) 75 3,000 unit PO DAILY 03/11/24 10/17/24 History mcg (3,000 unit) tablet bupropion HCl 150 mg tablet,12 hr 150 mg PO DAILY #90 ea 08/12/24 10/15/24 Rx sustained-release omeprazole 20 mg capsule,delayed 20 mg PO DAILY #30 caps 09/11/24 10/15/24 Rx release atorvastatin 40 mg tablet 40 mg PO HS 10/17/24 10/17/24 History citalopram 20 mg tablet 20 mg PO DAILY 10/17/24 10/17/24 History losartan 100 mg tablet 100 mg PO DAILY 10/17/24 10/17/24 History New Prescriptions to Start Prescriptions: Allergies Allergy/AdvReac Type Severity Reaction Status Date / Time morphine Allergy Unknown Verified 10/15/24 13:55 allergy reaction propoxyphene (From Darvon) Allergy Unknown Verified 10/15/24 13:55 allergy reaction thimerosal (From Merthiolate Allergy Unknown Verified 10/15/24 13:55 (thimerosal)) allergy reaction Exam Data for Last 24 hours Vital signs and Labs for Last 24 Hours: Temp Pulse Resp BP Pulse Ox O2 Del Method 97.6 F 64 10 L 90/63 L 94 L Room Air 10/17/24 09:26 10/17/24 09:26 10/17/24 09:26 10/17/24 09:26 10/17/24 06:32 10/17/24 06:32 I & O for Last 24 hours: Intake & Output 10/14/24 10/15/24 10/16/24 10/17/24 23:59 23:59 23:59 23:59 Intake Total 900 / 900 Balance 900 / 900 Weight 58.967 kg Constitutional Constitutional: no acute distress and chronically ill appearing Comments: Sedated, intubated *Routine HEENT Exam Head: Present normocephalic Eye: Present EOMI and PERRL ENT: Present mucous membranes moist Comments: ET tube in place *Routine Neck Exam Neck: Present supple; Absent lymphadenopathy *Routine Respiratory Exam Respiratory: Present patient mechanically ventilated and rhonchi; Absent crackles *Routine Cardiovascular Exam Cardiovascular: Present irregularly irregular Comments: Rate controlled *Routine Abdominal Exam Abdominal: Present soft and normoactive bowel sounds; Absent tenderness *Routine Rectal Exam Rectal:: deferred *Routine Genitalia Exam Genitalia:: deferred *Routine Extremities Exam Extremities: Absent cyanosis, clubbing or edema *Routine Skin Exam Skin: Present warm; Absent rash *Routine Neurological Exam Comments: Sedated, opens eyes spontaneously. Assessment and Plan *Assessment and plan (1) Acute hypoxemic respiratory failure: Status: Acute Category: Medical Code(s): J96.01 - Acute respiratory failure with hypoxia (2) On mechanically assisted ventilation: Status: Acute Category: Medical Code(s): Z99.11 - Dependence on respirator [ventilator] status (3) Compression fracture of L1 lumbar vertebra: Status: Acute Category: Medical Code(s): S32.010A - Wedge compression fracture of first lumbar vertebra, initial encounter for closed fracture (4) CAD (coronary artery disease): Status: Chronic Qualifiers: Associated angina: without angina Coronary Disease-Associated Artery/Lesion type: [place] artery [place] vs. transplanted heart: [place] heart Qualified Code(s): I25.10 - Atherosclerotic heart disease of [place] coronary artery without angina pectoris Category: Medical Code(s): I25.10 - Atherosclerotic heart disease of [place] coronary artery without angina pectoris (5) HTN (hypertension): Status: Chronic Qualifiers: Hypertension type: essential hypertension Qualified Code(s): I10 - Essential (primary) hypertension Category: Medical Code(s): I10 - Essential (primary) hypertension (6) HLD (hyperlipidemia): Status: Chronic Qualifiers: Hyperlipidemia type: mixed hyperlipidemia Qualified Code(s): E78.2 - Mixed hyperlipidemia Category: Medical Code(s): E78.5 - Hyperlipidemia, unspecified (7) Gastroesophageal reflux disease: Status: Chronic Qualifiers: Esophagitis presence: without esophagitis Qualified Code(s): K21.9 - Gastro-esophageal reflux disease without esophagitis Category: Medical Code(s): K21.9 - Gastro-esophageal reflux disease without esophagitis (8) Abnormal electrocardiogram [ECG] [EKG]: Status: Acute Category: Medical Code(s): R94.31 - Abnormal electrocardiogram [ECG] [EKG] Plan 79-year-old female who presented for kyphoplasty. Had aspiration event in PACU. Necessitated intubation. Pulmonology consulted to assist with care. Discussed case with pain management physician, request admission to ICU for further management. I agreed to admit for further care. Condition serious, prognosis fair. Problems addressed as follows: Acute respiratory failure due to aspiration On mechanical ventilation Aspiration pneumonia/pneumonitis - Pulmonology consulted to assist with care. Discussed case, recommend patient currently on mechanical ventilation with FiO2 of 100%, PEEP of 5, volume 400. Significant secretions. Pulmonology performed bronchoscopy today, patient had a lot of airway inflammation. -Recommend initiating ceftriaxone 2 g every 24 hours and doxycycline 100 mg twice daily. DuoNebs every 4 hours as needed. -Analgosedation with propofol and fentanyl. -ABG did not show evidence of hypoxia or hypercarbia while receiving 100% FiO2. -White count normal at 7.5, hemoglobin 13.8. Repeat CBC, CMP, magnesium ordered for the morning. -Labs relatively normal sodium 136, potassium 5.6, chloride 108. Kidney function normal with BUN 14, creatinine 0.5. Viral respiratory panel negative. Chest x-ray per my review showing right lower lung pneumonia. ET tube in appropriate position Will hold pressure patient including losartan and metoprolol due to to soft pre ssures at this time on sedation Resume citalopram 20 mg daily to decrease risk for withdrawal when she is extubated and off sedation Holding home Wellbutrin, Lipitor, aspirin, gabapentin Protonix 40 mg IV daily for GI prophylaxis Lovenox 40 mg subcu daily for DVT prophylaxis Full code ICU/Critical care attestation This patient is critically ill with 40 minutes devoted solely to this patient ma naging life/organ supporting interventions that required physician assessment. This includes time spent making adjustments in ventilator settings, IV fluid administration, titration of pressors, adjustments of medications, discussion of patient with consultants and other care providers as well as updating patient and/or family (if patient by virtue of his/her condition is unable to participate in decision making). This does not include time spent performing separately billed procedures. Time is not concurrent with that of other providers.
[2024-10-17] MEDS: propofoL 100 ML 1.77 MG IV (10:00)
[2024-10-17 10:17] LABS: Basophils # 0.1 K/mm3 (0-0.2); Basophils % 0.8 % (0.1-2.0); Eosinophils # 0.1 K/mm3 (0.0-0.4); Eosinophils % 1.9 % (0.1-12.0); Hematocrit 39.7 % (37.0-47.0); Hemoglobin 13.8 g/dL (12.2-16.2); Lymphocytes # 2.2 K/mm3 (0.7-4.5); Lymphocytes % 28.8 % (10-50); Mean Corpuscular HGB Conc 34.8 g/dL (31.8-35.4); Mean Corpuscular Hemoglobin 29.9 pg (27.0-31.2); Mean Corpuscular Volume 85.9 fl (81-99); Mean Platelet Volume 10.5 fl (7.4-10.4); Monocytes # 0.4 K/mm3 (0.1-1.0); Monocytes % 5.4 % (1.7-9.3); Neutrophils # 4.7 K/mm3 (1.8-7.8); Platelet Count 222 K/mm3 (142-424); Red Blood Count 4.62 M/mm3 (4.20-5.40); Red Cell Distribution Width 12.9 % (11.5-17.5); White Blood Count 7.5 K/mm3 (4.8-10.8)
--- NOTE | 2024-10-17 10:18 | HMH.PHAINT1 ---
Pharmacy Intervention Comments: HOME MEDICATION LIST VERIFIED USING LIST FROM OUTPATIENT PHARMACY AND PT INTERVIEW
--- NOTE | 2024-10-17 10:20 | SUR.PHASEI ---
0920- Pt kept in OR for PACU period due to pt being left intubated per kwabena Lujan. Kwabena Lujan at BS the entire pacu period controlling ventilator settings. Pt is to be admitted to the ICU following PACU. 0934- Pt left in the care of kathy Duran in room 263. Respiratory at BS. Vital signs stable, RT controlling ventilator settings.
[2024-10-17] MEDS: FENTANYL 12.5MCG/0.25ML 12.5 MCG IV ×2 (10:22→10:23)
[2024-10-17] MEDS: FENTANYL CITRATE/PF 1,000 MCG in 0.9 % SODIUM CHLORIDE 80 ML 1.25 MCG IV (10:23)
--- NOTE | 2024-10-17 10:27 | PC.NURSE ---
portable xray at bedside
[2024-10-17 10:31] LABS: Chloride 108 mmol/L (98-107)
[2024-10-17 10:32] LABS: Albumin Level 4.2 g/dl (3.5-5.0); Potassium 5.6 mmoL/L (3.5-5.1); Sodium 136 mmol/L (136-145)
--- NOTE | 2024-10-17 10:32 | SUR.PHASEI ---
0945- pt being transported to the ICU by kathy noriega, kathy guerrero and kwabena maciel. kwabena Maciel providing mechanical ventilation via ambu bag connected to 10L o2. Pt being transported on a continuous monitor. Pt VSS. Respiratory awaiting pt at bedside.
[2024-10-17 10:34] LABS: Blood Urea Nitrogen 14 mg/dl (7-17); Creatinine Clearance Estimated 42 mL/min (50-200); Estimated Glomerular Filt Rate 119 ml/min (>60); GFR (African American) 144 ML/MIN (>60)
--- NOTE | 2024-10-17 10:34 | P.PNANES_ITS ---
[facility] Disclaimer: The information contained in this section may have been updated after the patient was seen, as this information can be updated by other users. Medical History Thyroid nodule Memory loss Ataxia, unspecified Lumbago with sciatica, left side Primary generalized (osteo)arthritis Vitamin D deficiency, unspecified Abnormal electrocardiogram [ECG] [EKG] Fibromyalgia Abnormal EKG Diastolic dysfunction HTN (hypertension) HLD (hyperlipidemia) Gastroesophageal reflux disease Surgical History History of tonsillectomy Presence of artificial knee joint, bilateral History of cholecystectomy H/O total hysterectomy Family History Family history of cancer Family history of Alzheimer disease Social History Smoking Status: Never smoker second hand exposure: No alcohol intake: never substance use type: denies use current occupational status: other Travel in the last 8 weeks: Outside the [facility] household members: spouse housing: house current occupational exposures/hazards: No caffeine: Yes Have you lived/traveled outside US in past 30 days?: No Contact w/someone who lives/traveled outside US past 30 days?: No Exposure to someone with infectious disease in past 14 days?: No Have you tested positive for COVID-19: No Exposed to someone with COVID-19 in past 14 days?: No Do you have a sore throat?: No Do you have a cough?: No Do you have any weakness?: No Do you have any diarrhea?: No Are you experiencing any unusual bleeding?: No Do you have any muscle aches/pain?: No Do you have any abdominal pain?: No Are you experiencing loss of taste or smell?: No [facility] Anesthesia Checklist Patient Identification Patient Identification: Verbal (Name & ) Structural Data Admitted From: Home Planned Operative Procedure/s: kyphoplasty Consent for Planned Operative Procedure(s) Verified: Yes NPO Status Verified Time NPO: 00:00 Additional verifications Anesthesia Reactions: No Hx Blood Transfusions: No Blood Transfusion Reaction: No (n/a) Airway Assessment Mallampati Score:: Class II C-Spine Mobility Assessed: Yes TMJ Mobility Assessed: Yes Dentition: Good Dentition Neurological Assessment Level of Consciousness: Awake, Alert and Appropriate Anesthesia Plan Anesthesia Risk discussed: Yes Anesthesia Plan: Verified ASA Class: II Anesthesia Type: MAC
[2024-10-17 10:35] LABS: Alanine Aminotransferase 66 U/L (12-78); Albumin/Globulin Ratio 1.4 (1.1-1.8); Alkaline Phosphatase 91 U/L (38-126); Anion Gap 9.6 mEq/L (5-15); Aspartate Amino Transferase 102 U/L (14-36); Bilirubin,Total 1.5 mg/dl (0.2-1.3); Calcium 8.7 mg/dl (8.4-10.2); Carbon Dioxide 24 mmol/L (22.0-30.0); Globulin 3.1 g/dL (1.3-3.2); Glucose 114 mg/dl (74-100); Magnesium 1.8 mg/dl (1.6-2.3); Total Protein,Serum 7.3 g/dl (6.3-8.2)
[2024-10-17 10:43] LABS: ABG Base Excess -2.5 mmol/L (-2.4-2.3); ABG HCO3 22.8 mmhg (22.0-26.0); ABG Oxygen Saturation 95 % (90-100); ABG PCO2 40.5 mmhg (35.0-45.0); ABG PH 7.37 mmol/L (7.35-7.45); ABG PO2 76.7 mmhg (80-100)
[2024-10-17 10:48] LABS: Allen's Test Patient Unable; Oxygen 100 %; PEEP 5; Source Left Radial; Tidal Volume 400; Vent Rate 18
--- NOTE | 2024-10-17 11:15 | P.CONS_ITS ---
History of Present Illness History of present illness: Much of the history is obtained from chart review and patient's significant other. Patient did not have any significant smoking history, no respiratory symptoms at baseline, not using any inhalers or oxygen supplementation at baseline. With patient and her significant other having dry cough for the last 1 week with no worsening respiratory distress. Ms. Hansen presented for an outpatient elective kyphoplasty procedure experienced aspiration event following hypoxic respiratory failure needing intubation and mechanical ventilatory support and pulmonary was called for further evaluation and management. [facility] Disclaimer: The information contained in this section may have been updated after the patient was seen, as this information can be updated by other users. Medical History (Updated 10/17/24 @ 11:21 by Nella Martinez MD) Pneumonia Thyroid nodule Memory loss Ataxia, unspecified Lumbago with sciatica, left side Primary generalized (osteo)arthritis Vitamin D deficiency, unspecified Abnormal electrocardiogram [ECG] [EKG] Fibromyalgia Abnormal EKG Diastolic dysfunction HTN (hypertension) HLD (hyperlipidemia) Gastroesophageal reflux disease Surgical History History of tonsillectomy Presence of artificial knee joint, bilateral History of cholecystectomy H/O total hysterectomy Family History Family history of cancer Family history of Alzheimer disease Social History Smoking Status: Never smoker second hand exposure: No alcohol intake: never substance use type: denies use current occupational status: other Travel in the last 8 weeks: Outside the [facility] household members: spouse housing: house current occupational exposures/hazards: No caffeine: Yes Have you lived/traveled outside US in past 30 days?: No Contact w/someone who lives/traveled outside US past 30 days?: No Exposure to someone with infectious disease in past 14 days?: No Have you tested positive for COVID-19: No Exposed to someone with COVID-19 in past 14 days?: No Do you have a sore throat?: No Do you have a cough?: No Do you have any weakness?: No Do you have any diarrhea?: No Are you experiencing any unusual bleeding?: No Do you have any muscle aches/pain?: No Do you have any abdominal pain?: No Are you experiencing loss of taste or smell?: No Review of Systems Review of Systems Review of systems:: unable to obtain Review of systems (narrative): Intubated and sedated Pulmonology Exam Inpatient Vital signs and Labs for Last 24 Hours: Temp Pulse Resp BP Pulse Ox O2 Del Method O2 Flow Rate 96.9 F L 83 18 146/72 H 98 Mechanical Ventilation 10 10/17/24 10:32 10/17/24 09:50 10/17/24 10:00 10/17/24 09:50 10/17/24 09:50 10/17/24 09:50 10/17/24 09:50 FiO2 100 10/17/24 10:00 Laboratory Results - last 24 hr 10/17/24 09:55: Specimen Source Left radial, O2 % 100, ABG pH 7.37, ABG pCO2 40.5, ABG pO2 76.7 L, ABG HCO3 22.8, ABG Total CO2 24.0, ABG O2 Saturation 95, A BG Base Excess -2.5 L, Rory Test Patient unable, Vent Rate 18, Tidal Volume 400, PEEP 5 10/17/24 10:10: WBC 7.5, RBC 4.62, Hgb 13.8, Hct 39.7, MCV 85.9, MCH 29.9, MCHC 34.8, RDW 12.9, Plt Count 222, MPV 10.5 H, Neut % (Auto) 62.0, Lymph % (Auto) 28.8, Kleberg % (Auto) 5.4, Eos % (Auto) 1.9, Baso % (Auto) 0.8, Neut # (Auto) 4.7, Lymph # (Auto) 2.2, [place] # (Auto) 0.4, Eos # (Auto) 0.1, Baso # (Auto) 0.1, Sodium 136, Potassium 5.6 H, Chloride 108 H, Carbon Dioxide 24, Anion Gap 9.6, BUN 14, Creatinine 0.50 L, Estimated Creat Clear 42, Estimated GFR 119, Est GFR ( Amer) 144, Glucose 114 H, Calcium 8.7, Magnesium 1.8, Total Bilirubin 1.5 H, AST 102 H, ALT 66, Alkaline Phosphatase 91, Total Protein 7.3, Albumin 4.2, Globulin 3.1, Albumin/Globulin Ratio 1.4 I & O for Labs for Last 24 Hours: Intake & Output 10/14/24 10/15/24 10/16/24 10/17/24 23:59 23:59 23:59 23:59 Intake Total 903.006 / 903.006 Balance 903.006 / 903.006 Weight 130 lb 142 lb 7 oz Constitutional: Present severe distress Comment:: Intubated and Sedated Head: Present normocephalic and atraumatic Neck: Present normal inspection and trachea midline Respiratory: Present patient mechanically ventilated, prolonged expiratory phase and rhonchi; Absent wheezes or able to speak in complete sentences Cardiac: Present S1/S2 and Tachycardia GI: Present soft; Absent distention or tenderness Skin: Present intact; Absent cyanosis Neuro: Absent alert, awake or oriented x 3 Comment:: Intubated and sedated Extremities: Present normal inspection; Absent clubbing or cyanosis Psychiatric: Present unable to assess Meds Home Medications and Allergies Home Medications ?Medication ?Instructions ?Recorded ?Confirmed ?Type aspirin 81 mg tablet,delayed 81 mg PO DAILY 04/22/18 10/15/24 History release msdqxphd-yiri-xacu 8 mg-folic 400 1 tab PO DAILY supplement 09/17/20 10/15/24 History mcg-K 50 mcg-lutein 300 mcg tablet (Centrum Silver Women) hydrocortisone 2.5 % topical cream 1 applic topical DIRECTED Skin 10/31/21 10/15/24 History Condition gabapentin 100 mg capsule 100 mg PO BIDP PRN nerve pain 05/15/23 10/17/24 History metoprolol succinate 25 mg 25 mg PO DAILY #90 tabs 12/10/23 10/15/24 Rx tablet,extended release 24 hr cholecalciferol (vitamin D3) 75 3,000 unit PO DAILY 03/11/24 10/17/24 History mcg (3,000 unit) tablet bupropion HCl 150 mg tablet,12 hr 150 mg PO DAILY #90 ea 08/12/24 10/15/24 Rx sustained-release omeprazole 20 mg capsule,delayed 20 mg PO DAILY #30 caps 09/11/24 10/15/24 Rx release atorvastatin 40 mg tablet 40 mg PO HS 10/17/24 10/17/24 History citalopram 20 mg tablet 20 mg PO DAILY 10/17/24 10/17/24 History losartan 100 mg tablet 100 mg PO DAILY 10/17/24 10/17/24 History New Prescriptions to Start Prescriptions: Allergies Allergy/AdvReac Type Severity Reaction Status Date / Time morphine Allergy Unknown Verified 10/15/24 13:55 allergy reaction propoxyphene (From Darvon) Allergy Unknown Verified 10/15/24 13:55 allergy reaction thimerosal (From Merthiolate Allergy Unknown Verified 10/15/24 13:55 (thimerosal)) allergy reaction Results Laboratory Findings 10/17/24 10:10 10/17/24 10:10 ABG ABG pH 7.37 mmol/L (7.35-7.45) 10/17/24 09:55 ABG pCO2 40.5 mmhg (35.0-45.0) 10/17/24 09:55 ABG pO2 76.7 mmhg (80-100) L 10/17/24 09:55 ABG O2 Saturation 95 % (90-100) 10/17/24 09:55 Abnormal lab findings: Abnormal Labs 10/17/24 10/17/24 09:55 10:10 MPV 10.5 H ABG pO2 76.7 L ABG Base Excess -2.5 L Potassium 5.6 H Chloride 108 H Creatinine 0.50 L Glucose 114 H Total Bilirubin 1.5 H AST 102 H Assessment and Plan *Assessment and plan (1) On mechanically assisted ventilation: Status: Acute Category: Medical Code(s): Z99.11 - Dependence on respirator [ventilator] status (2) Acute hypoxemic respiratory failure: Status: Acute Category: Medical Code(s): J96.01 - Acute respiratory failure with hypoxia (3) Pneumonia: Status: Acute Category: Medical Code(s): J18.9 - Pneumonia, unspecified organism Plan Much of the history is obtained from chart review and patient's significant other. Patient did not have any significant smoking history, no respiratory symptoms at baseline, not using any inhalers or oxygen supplementation at baseline. With patient and her significant other having dry cough for the last 1 week with no worsening respiratory distress. Ms. Hansen presented for an outpatient elective kyphoplasty procedure experienced aspiration event following hypoxic respiratory failure needing intubation and mechanical ventilatory support and pulmonary was called for further evaluation and management. On admission no evidence of leukocytosis. ABG did not show any evidence of hypoxic/hypercarbic respiratory failure while receiving 100% FiO2. Plan: Continue propofol and fentanyl for sedation Continue mechanical ventilator support, currently on PEEP of 5 FiO2 of 100%. Copious amount of secretions/food particles suctioned. Chest x-ray right lower lobe pneumonia/consolidative process. ET tube in place. No recent prior imaging available for review. CT chest 2019 no acute pulmonary parenchymal process. Ceftriaxone and doxycycline pending tracheal aspirate results. Schedule for bronchoscopy airway examination and bronchoalveolar lavage DuoNebs 4 times daily as needed. - Continue mechanical ventilatory support - Continue AnalgoSedation with Propofol and Fentanyl with CPOT gal less than or euqal to 2 and RASS goal of to 2 (No need for deep sedation) - VAP bundle Recommend elevate head of the bed at 30 to 45 degrees Recommend oral care with chlorhexidne Recommend GI ulcer prophylaxis - Famotidine 20mg IV BID Recommend chemical DVT prophylaxis Total critical care time spent on this patient is 35 minutes managing acute hypoxic respiratory failure needing mechanical ventilation. This time spent include reviewing test results including interpreting chest x-rays, labs and arterial blood gas, optimizing the ventilator settings,formulating plan of care, discussing the plan of care with the team and the nursing staff.
[2024-10-17 11:36] LABS: Adenovirus,PCR Not Detected (NotDetected); Bordetella Pertussis Not Detected (NotDetected); Chlamydophila Pneumoniae, PCR Not Detected (NotDetected); Coronavirus 19, PCR Not Detected (NotDetected); Coronavirus 229E Not Detected (NotDetected); Coronavirus NL63 Not Detected (NotDetected); Coronavirus OC43 Not Detected (NotDetected); Coronovirus HKU1,PCR Not Detected (NotDetected); Human Metapneumovirus Not Detected (NotDetected); Influenza A, PCR Not Detected (NotDetected); Influenza AH1, 2009 Not Detected (NotDetected); Influenza AH1, PCR Not Detected (NotDetected); Influenza AH3,PCR Not Detected (NotDetected); Influenza B, PCR Not Detected (NotDetected); Mycoplasma Pneumoniae, PCR Not Detected (NotDetected); Parainfluenza 1, PCR Not Detected (NotDetected); Parainfluenza 2, PCR Not Detected (NotDetected); Parainfluenza 3, PCR Not Detected (NotDetected); Parainfluenza 4, PCR Not Detected (NotDetected); Respiratory Syncytial Virus Not Detected (NotDetected); Rhinovirus/Enterovirus Not Detected (NotDetected)
[2024-10-17] MEDS: FENTANYL 12.5MCG/0.25ML 25 MCG IV ×2 (11:36→11:37)
--- NOTE | 2024-10-17 11:41 | SUR.OPER ---
0905- At the end of the surgical case being performed on this patient by Dr Alonzo, patient began vomiting while in the prone position. Patients oral cavity suctioned by SENIOR BIOSTATISTICIAN/GROUP LEADER. sats continued to drop despite suctioning. Oral airway established and simple mask placed on patient, nasal cannula removed. Saturations continued dropping. Patient emergently rolled onto her back onto the stretcher and removed from the OR table. Attempt made to establish airway via ETT. Not successful. Patient still vomiting chunky and dark sputum/vomit. Patient bagged by Dr Alonzo at 100% oxygen. Patients saturations finally stabilized in the 90's. Decision made by Dr Alonzo to intubate the patient and admit to ICU. Dr Alonzo to call Dr Purdy and discuss admission and also call Dr Martinez for a pulmonology consult. 0918- patient stabilized and airway established, report given to Jennifer Blanco RN. Recover phase 1 time to begin. 0920- Patient recovered inside of OR 3 for PACU time by Jennifer Blanco RN.
[2024-10-17] MEDS: MIDAZOLAM 2MG/2ML VIAL 2 MG IV (11:43)
[2024-10-17] MEDS: LACTATED RINGERS 1000ML 500 ML 999 ML IV (11:57)
--- NOTE | 2024-10-17 12:32 | EXP.BRONCH.N ---
Procedure: Date: 10/17/24 Patient Date of :: 1945 Procedure Performed:: Bronchoscopy airway examination bronchoalveolar lavage Indications:: Acute hypoxic respiratory failure. Aspiration pneumonia Performing Provider:: Nella Martinez MD Referring Provider:: Dr. Purdy Sedation:: On propofol and fentanyl. Patient also received 50 of fentanyl and 2 mg of Versed IV for the procedure Procedure:: Bronchoscopy airway examination and bronchoalveolar lavage: A clean therapeutic bronchoscopy was advanced through the ET tube and airways were examined up to subsegmental bronchi. Airways were examined up to subsegmental bronchi. No obvious foreign body/food particles/mucoid impaction/airway obstruction noted. Thick greenish mucoid secretions noted in the left lower lobe bronchus that were aspirated. Diffuse airway erythema noted. Bronchoalveolar lavage was performed in the RIGHT MIDDLE LOBE with instillation of 40 cc normal saline with return of 20 cc back blood tinged fluid back. BAL fluid was sent for cell count and differential along with bacterial fungal and AFB stain and cultures. Patient tolerated the procedure with no immediate acute complications. We will follow the patient in pulmonary clinic in 7 to 10 days. Findings:: Please see the procedure note Recommendations:: Postoperative bronchoscopy instructions Follow-up with consultation note from today for further recommendation Complications:: No acute immediate complication Estimated blood obtained (mL): 0
[2024-10-17] MEDS: DOXYCYCLINE HYCLATE 100 MG in 0.9 % SODIUM CHLORIDE 250 ML 166.667 MG IV ×2 (13:00→23:02)
--- NOTE | 2024-10-17 13:26 | XR_ITS ---
FINAL REPORT CLINICAL HISTORY: og tube placement FINDINGS: ABDOMEN SINGLE VIEW There is a nonspecific, nonobstructive bowel gas pattern. No abnormal dilatation is identified. NG tube is in the gastric antrum. There is compression deformity of L1 with 40% compression and postoperative changes from prior kyphoplasty. There is no abnormal calcification. IMPRESSION: NG tube is in the gastric antrum. Reviewed, Interpreted and Dictated by Ammon Darnell MD Transcribed by Radha Manjarrez Authenticated and [facility]
--- NOTE | 2024-10-17 14:10 | DIET.NUTRFU ---
if intubated more then 24 hours enteral feeding would be beneficial for overall recovery: Start Jevity 1.2 at 20ml/hr with goal rate 50ml/hr ATC= 1200ml/1440kcal/67gm protein and 968ml/day. May need to adjust rate dependent on propofol rate. flush will also depend on IVF at the time, Please consult RD
[2024-10-17] MEDS: CEFTRIAXONE SODIUM 2 GM in 0.9 % SODIUM CHLORIDE 100 ML IV (14:40)
[2024-10-17] MEDS: propofoL 100 ML 10.61 MG IV (16:26)
[2024-10-17] MEDS: IPRATROPIUM/ALBUTEROL 3 ML NEB IH ×2 (18:12→23:34)
[2024-10-17 18:13] LABS: Microscopic, Urine URINE MICROSCOPIC (MICROSCOPIC)
[2024-10-17 18:28] LABS: Appearance,Urine CLEAR (Clear); Bilirubin,Urine Negative (Negative); Blood, Urine Negative (Negative); Color,Urine YELLOW (Yellow); Glucose,Urine (UA) Negative (Negative); Ketones,Urine Negative (Negative); Leukocyte Esterase,Urine Negative (Negative); Nitrate,Urine Negative (Negative); Protein,Urine 1+ (Negative); Urobilinogen,Urine 0.2 EU/dl (0.2)
[2024-10-17 18:40] LABS: Bacteria,Urine Trace /lpf; WBC,Urine Occasional #/hpf (0-3)
[2024-10-17] MEDS: PANTOPRAZOLE 40MG VIAL 40 MG IV (20:45)
--- NOTE | 2024-10-17 23:33 | PC.NURSE ---
pt had complete bed bath and linen change.
[2024-10-18] VITALS (36 sets, daily range): BP systolic 94–184; BP diastolic 41–84; PULSE 80–100; RESP 15–35; TEMP 36.2–37.7; O2SAT 91–96; BMI 28.1
[2024-10-18] MEDS: propofoL 100 ML 7.08 MG IV (01:24)
--- NOTE | 2024-10-18 06:00 | XR_ITS ---
PROCEDURE INFORMATION: Exam: XR Chest Exam date and time: 10/18/2024 4:59 AM Age: 79 years old Clinical indication: Other: Pneumonia mechanical ventilation TECHNIQUE: Imaging protocol: Radiologic exam of the chest. Views: 1 view. COMPARISON: No relevant prior studies available. FINDINGS: Tubes, catheters and devices: Patient is intubated, endotracheal tube projects a proximally 3.5 cm from the celio. Enteric tube traverses midline, catheter tip and side fenestration is not within the field of view. Lungs: Within these limitations there is obvious basilar patchy airspace infiltrates, [id number]-right. Pleural spaces: Perhaps small bilateral pleural effusions. Heart/Mediastinum: Unremarkable. No cardiomegaly. Bones/joints: Diffuse degenerative change of the visualized osseous structures. Other findings: Patient is significantly rotated which limits characterization. IMPRESSION: 1. Limited due to patient rotation. 2. Medical devices as above. 3. Nonspecific findings, however can be seen in multifocal infection with parapneumonic effusion, volume overload/CHF. Correlate clinically.
[2024-10-18] MEDS: IPRATROPIUM/ALBUTEROL 3 ML NEB IH ×4 (06:19→23:13)
[2024-10-18 06:28] LABS: Basophils % 0.2 % (0.1-2.0); Hematocrit 35.3 % (37.0-47.0); Lymphocytes # 1.1 K/mm3 (0.7-4.5); Lymphocytes % 7.6 % (10-50); Mean Corpuscular Hemoglobin 28.8 pg (27.0-31.2); Mean Corpuscular Volume 84.9 fl (81-99); Mean Platelet Volume 10.7 fl (7.4-10.4); Monocytes % 6.8 % (1.7-9.3); Neutrophils % 85.1 % (37.0-80.0); Platelet Count 195 K/mm3 (142-424); Red Blood Count 4.16 M/mm3 (4.20-5.40); Red Cell Distribution Width 12.9 % (11.5-17.5); White Blood Count 14.1 K/mm3 (4.8-10.8)
[2024-10-18 06:34] LABS: ABG Base Excess -3.8 mmol/L (-2.4-2.3); ABG HCO3 19.9 mmhg (22.0-26.0); ABG Oxygen Saturation 98 % (90-100); ABG PCO2 27.8 mmhg (35.0-45.0); ABG PH 7.47 mmol/L (7.35-7.45); ABG PO2 100.4 mmhg (80-100); ABG TCO2 20.7 mmhg (23-27)
[2024-10-18 06:36] LABS: Allen's Test Patient Unable; Oxygen 35% %; PEEP 5; Source Right Radial; Tidal Volume 400; Vent Rate 18
[2024-10-18 06:37] LABS: Hemoglobin 12.2 g/dL (12.2-16.2)
[2024-10-18 06:38] LABS: Albumin Level 3.2 g/dl (3.5-5.0); Chloride 111 mmol/L (98-107); Sodium 138 mmol/L (136-145)
[2024-10-18 06:41] LABS: Alanine Aminotransferase 49 U/L (12-78); Albumin/Globulin Ratio 1.2 (1.1-1.8); Alkaline Phosphatase 91 U/L (38-126); Aspartate Amino Transferase 59 U/L (14-36); Bilirubin,Total 1.3 mg/dl (0.2-1.3); Blood Urea Nitrogen 20 mg/dl (7-17); Calcium 9.1 mg/dl (8.4-10.2); Carbon Dioxide 23 mmol/L (22.0-30.0); Creatinine Clearance Estimated 47 mL/min (50-200); Estimated Glomerular Filt Rate 119 ml/min (>60); GFR (African American) 144 ML/MIN (>60); Globulin 2.6 g/dL (1.3-3.2); Glucose 124 mg/dl (74-100); Magnesium 1.6 mg/dl (1.6-2.3); Total Protein,Serum 5.8 g/dl (6.3-8.2)
[2024-10-18] MEDS: ENOXAPARIN 40MG/0.4ML SYRINGE 40 MG SUBCUT (08:44)
[2024-10-18] MEDS: CITALOPRAM 20MG TABLET 20 MG PO (08:44)
[2024-10-18] MEDS: FENTANYL CITRATE/PF 1,000 MCG in 0.9 % SODIUM CHLORIDE 80 ML 2.5 MCG IV (08:45)
[2024-10-18 10:02] LABS: C-Reactive Protein 124.5 mg/L (0-4)
[2024-10-18 10:14] LABS: Procalcitonin 3.79 ng/mL (0.0-2.0)
[2024-10-18] MEDS: CEFTRIAXONE SODIUM 2 GM in 0.9 % SODIUM CHLORIDE 100 ML IV (10:41)
[2024-10-18] MEDS: DOXYCYCLINE HYCLATE 100 MG in 0.9 % SODIUM CHLORIDE 250 ML 166.667 MG IV ×2 (11:18→23:38)
[2024-10-18 12:53] LABS: ABG Base Excess -3.5 mmol/L (-2.4-2.3); ABG HCO3 21.2 mmhg (22.0-26.0); ABG Oxygen Saturation 98 % (90-100); ABG PCO2 34.4 mmhg (35.0-45.0); ABG PH 7.41 mmol/L (7.35-7.45); ABG PO2 98.7 mmhg (80-100); ABG TCO2 22.2 mmhg (23-27); Oxygen 35% %; PEEP 5; Pressure Support 5
[2024-10-18 12:54] LABS: Allen's Test Acceptable; Source Right Radial
--- NOTE | 2024-10-18 13:21 | PC.NURSE ---
Pt. extubated at 1315. Placed on a 4lpm nc. 02sat 93% ,HR 100
--- NOTE | 2024-10-18 15:56 | PC.NURSE ---
Patient extubated and tolerating well. 4LNC weaned to 2LNC. Lung sounds diminished. Soto catheter in place. Patient resting comfortably in bed. NSR with BBB on tele.
--- NOTE | 2024-10-18 18:11 | P.PN_ITS ---
Subjective *Date: 10/18/24 *Time: 21:53 Interval history: Weaned to minimal vent settings. SBT trial this morning, did well. Alert and interactive and following commands with sedation off. at bedside. Afebrile. Medical Exam Vital signs and Labs for Last 24 Hours: Vital Signs Temp Pulse Resp BP Pulse Ox O2 Del Method O2 Flow Rate 10/18/24 17:00 89 35 H 91 L 10/18/24 17:00 149/63 H 10/18/24 17:00 Nasal Cannula 2 10/18/24 16:30 133/53 L 10/18/24 16:30 82 25 H 92 L 10/18/24 16:15 Nasal Cannula 2 10/18/24 16:00 90 10/18/24 16:00 99.8 F H 10/18/24 16:00 84 30 H 91 L Nasal Cannula 2 10/18/24 16:00 143/54 H 10/18/24 15:00 87 33 H 94 L Nasal Cannula 3 10/18/24 15:00 155/57 H 10/18/24 15:00 Nasal Cannula 3 10/18/24 14:00 136/58 L 10/18/24 14:00 86 26 H 95 Nasal Cannula 4 10/18/24 13:00 161/59 H 10/18/24 13:00 88 18 96 Mechanical Ventilation 10/18/24 13:00 Mechanical Ventilation 10/18/24 12:15 Mechanical Ventilation 10/18/24 12:00 90 10/18/24 12:00 92 H 30 H 96 10/18/24 12:00 145/58 H 10/18/24 12:00 84 19 184/84 H 91 L Vapotherm 30 10/18/24 11:36 19 95 10/18/24 11:07 84 10/18/24 11:07 91 H 10/18/24 11:00 124/55 L 10/18/24 11:00 85 18 95 Mechanical Ventilation 10/18/24 11:00 Mechanical Ventilation 10/18/24 10:07 18 95 10/18/24 10:00 80 18 126/49 L 94 L Mechanical Ventilation 10/18/24 09:00 139/51 L 93 L Mechanical Ventilation 10/18/24 09:00 83 18 95 Mechanical Ventilation 10/18/24 09:00 Room Air 10/18/24 09:00 99.2 F 83 18 139/51 L 95 Mechanical Ventilation 10/18/24 08:15 Mechanical Ventilation 10/18/24 08:00 90 10/18/24 08:00 99.1 F 87 18 132/49 L 94 L Mechanical Ventilation 10/18/24 07:00 88 18 114/51 L 94 L Mechanical Ventilation 10/18/24 06:21 82 10/18/24 06:21 84 10/18/24 06:21 18 94 L 10/18/24 06:00 97.7 F 83 18 101/56 L 96 Mechanical Ventilation 10/18/24 05:01 82 17 122/46 L 94 L Mechanical Ventilation 10/18/24 04:00 97.5 F L 81 18 121/54 L 94 L Mechanical Ventilation 10/18/24 04:00 84 10/18/24 03:42 19 94 L 10/18/24 03:00 Mechanical Ventilation 10/18/24 03:00 97.2 F L 83 18 94/41 L 95 Mechanical Ventilation 10/18/24 02:00 82 18 97/41 L 95 Mechanical Ventilation 10/18/24 02:00 10/18/24 01:45 18 95 10/18/24 01:17 98.4 F 82 18 107/43 L 94 L Mechanical Ventilation 10/18/24 00:52 Mechanical Ventilation 10/18/24 00:52 81 18 102/50 L 94 L Mechanical Ventilation 10/18/24 00:10 18 95 10/17/24 23:53 95 Mechanical Ventilation 10/17/24 23:53 82 18 94/47 L 96 Mechanical Ventilation 10/17/24 23:35 79 10/17/24 23:35 78 10/17/24 23:00 Mechanical Ventilation 10/17/24 23:00 78 18 93/39 L 95 Mechanical Ventilation 10/17/24 22:55 18 95 10/17/24 22:00 10/17/24 22:00 82 20 103/51 L 95 Mechanical Ventilation 10/17/24 21:00 Mechanical Ventilation 10/17/24 21:00 97.7 F 80 18 94/51 L 95 Mechanical Ventilation 10/17/24 20:00 95 Mechanical Ventilation 10/17/24 20:00 98.7 F 78 18 91/49 L 98 Mechanical Ventilation 10/17/24 19:55 18 95 10/17/24 19:00 113/53 L 10/17/24 19:00 73 18 98 10/17/24 18:35 Room Air 10/17/24 18:30 91/48 L FiO2 10/18/24 17:00 10/18/24 17:00 10/18/24 17:00 10/18/24 16:30 10/18/24 16:30 10/18/24 16:15 10/18/24 16:00 10/18/24 16:00 10/18/24 16:00 10/18/24 16:00 10/18/24 15:00 10/18/24 15:00 10/18/24 15:00 10/18/24 14:00 10/18/24 14:00 10/18/24 13:00 10/18/24 13:00 10/18/24 13:00 10/18/24 12:15 10/18/24 12:00 10/18/24 12:00 10/18/24 12:00 10/18/24 12:00 10/18/24 11:36 35 10/18/24 11:07 10/18/24 11:07 10/18/24 11:00 10/18/24 11:00 10/18/24 11:00 10/18/24 10:07 35 10/18/24 10:00 10/18/24 09:00 10/18/24 09:00 10/18/24 09:00 10/18/24 09:00 10/18/24 08:15 10/18/24 08:00 10/18/24 08:00 10/18/24 07:00 10/18/24 06:21 10/18/24 06:21 10/18/24 06:21 35 10/18/24 06:00 10/18/24 05:01 10/18/24 04:00 10/18/24 04:00 10/18/24 03:42 35 10/18/24 03:00 10/18/24 03:00 10/18/24 02:00 10/18/24 02:00 40 10/18/24 01:45 40 10/18/24 01:17 10/18/24 00:52 10/18/24 00:52 10/18/24 00:10 40 10/17/24 23:53 50 10/17/24 23:53 10/17/24 23:35 10/17/24 23:35 10/17/24 23:00 10/17/24 23:00 10/17/24 22:55 50 10/17/24 22:00 50 10/17/24 22:00 10/17/24 21:00 10/17/24 21:00 10/17/24 20:00 50 10/17/24 20:00 10/17/24 19:55 50 10/17/24 19:00 10/17/24 19:00 10/17/24 18:35 10/17/24 18:30 Intake and Output 10/18/24 10/18/24 10/18/24 07:59 15:59 23:59 Intake Total 269.868 / 605.646 335.778 / 605.646 Output Total 485 / 985 410 / 985 90 / 985 Balance -215.132 / -379.354 -74.222 / -379.354 -90 / -379.354 Intake: Intake, Total IV Amount 269.868 / 605.646 335.778 / 605.646 Doxycycline Hyclate 100 mg In 0 250 / 500 250 / 500 .9 % Sodium Chloride 250 ml @ 166.667 mls/hr IV Q12H [facility] Rx#: [id number] Output: Output, Urine Amount 350 / 350 0 / 350 0 / 350 Output, Urine Amount (Catheter) 135 / 635 410 / 635 90 / 635 Soto 135 / 635 410 / 635 90 / 635 Other: Number of Unmeasured Voids 0 0 0 Weight 65.034 kg Patient Weight 10/18/24 23:59 Weight 65.034 kg Laboratory Results - last 24 hr 10/17/24 12:51: Urine Color Yellow, Urine Appearance Clear, Urine pH 7.0, Ur Specific [place] 1.020, Urine Protein 1+ A, Urine Glucose (UA) Negative, Urine Ketones Negative, Urine Blood Negative, Urine Nitrate Negative, Urine Bilirubin Negative, Urine Urobilinogen 0.2, Ur Leukocyte Esterase Negative, Urine RBC None, Urine WBC Occasional, Ur Squamous Epith Cells None, Urine Bacteria Trace 10/18/24 06:00: WBC 14.1 H D, RBC 4.16 L, Hgb 12.2 D, Hct 35.3 L, MCV 84.9, MCH 28.8, MCHC 34.0, RDW 12.9, Plt Count 195, MPV 10.7 H, Neut % (Auto) 85.1 H, Lymph % (Auto) 7.6 L, [place] % (Auto) 6.8, Eos % (Auto) 0.0 L, Baso % (Auto) 0.2, Neut # (Auto) 12.0 H, Lymph # (Auto) 1.1, [place] # (Auto) 1.0, Eos # (Auto) 0.0, Baso # (Auto) 0.0, Specimen Source Right radial, O2 % 35%, ABG pH 7.47 H, ABG pCO2 27.8 L, ABG pO2 100.4 H, ABG HCO3 19.9 L, ABG Total CO2 20.7 L, ABG O2 Saturation 98, ABG Base Excess -3.8 L, Rory Test Patient unable, Vent Rate 18, Tidal Volume 400, PEEP 5, Sodium 138, Potassium 4.0 D, Chloride 111 H, Carbon Dioxide 23, Anion Gap 8.0, BUN 20 H D, Creatinine 0.50 L, Estimated Creat Clear 47, Estimated GFR 119, Est GFR ( Amer) 144, Glucose 124 H, Calcium 9.1, Magnesium 1.6 D, Total Bilirubin 1.3, AST 59 H D, ALT 49 D, Alkaline Phosphatase 91, Total Protein 5.8 L, Albumin 3.2 L D, Globulin 2.6, Albumin/Globulin Ratio 1.2 10/18/24 06:27: C-Reactive Protein 124.5 H, Procalcitonin 3.79 H 10/18/24 12:39: Specimen Source Right radial, O2 % 35%, ABG pH 7.41, ABG pCO2 34.4 L, ABG pO2 98.7, ABG HCO3 21.2 L, ABG Total CO2 22.2 L, ABG O2 Saturation 98, ABG Base Excess -3.5 L, Rory Test Acceptable, PEEP 5 I & O for Labs for Last 24 Hours: Intake & Output 10/15/24 10/16/24 10/17/24 10/18/24 23:59 23:59 23:59 23:59 Intake Total 1971.959 / 1971.959 605.646 / 605.646 Output Total 620 / 620 985 / 985 Balance 1351.959 / 1351.959 -379.354 / -379.354 Weight 58.967 kg 64.6 kg 65.034 kg Microbiology Reports for the Last 24 Hours: Microbiology 10/17/24 12:00 Bronchial Washings - Right Middle Lobe Gram Stain - Final 10/17/24 09:54 Sputum - Endotracheal Tube Aspirate Gram Stain - Final Constitutional: Present no acute distress, chronically ill appearing and c ooperative Head: Present atraumatic and normocephalic Comment:: Alopecia Neck: Present trachea midline Respiratory: Present rhonchi and normal respiratory effort; Absent wheezes or crackles Cardiac: Present Reg Rate and Rhythm GI: Present soft and normal bowel sounds; Absent distention or tenderness Extremities: Present normal inspection and full ROM Skin: Present intact; Absent erythema Neuro: Present Grossly Intact, alert, awake, oriented x 3 and moves all extremities Comment:: [place] after extubation. Following commands. Answering questions appropriately. Assessment and Plan *Assessment and plan (1) Acute hypoxemic respiratory failure: Status: Acute Category: Medical Code(s): J96.01 - Acute respiratory failure with hypoxia (2) On mechanically assisted ventilation: Status: Acute Category: Medical Code(s): Z99.11 - Dependence on respirator [ventilator] status (3) Compression fracture of L1 lumbar vertebra: Status: Acute Category: Medical Code(s): S32.010A - Wedge compression fracture of first lumbar vertebra, initial encounter for closed fracture (4) CAD (coronary artery disease): Status: Chronic Qualifiers: Associated angina: without angina Coronary Disease-Associated Artery/Lesion type: [place] artery [place] vs. transplanted heart: [place] heart Qualified Code(s): I25.10 - Atherosclerotic heart disease of [place] coronary artery without angina pectoris Category: Medical Code(s): I25.10 - Atherosclerotic heart disease of [place] coronary artery without angina pectoris (5) HTN (hypertension): Status: Chronic Qualifiers: Hypertension type: essential hypertension Qualified Code(s): I10 - Essential (primary) hypertension Category: Medical Code(s): I10 - Essential (primary) hypertension (6) HLD (hyperlipidemia): Status: Chronic Qualifiers: Hyperlipidemia type: mixed hyperlipidemia Qualified Code(s): E78.2 - Mixed hyperlipidemia Category: Medical Code(s): E78.5 - Hyperlipidemia, unspecified (7) Gastroesophageal reflux disease: Status: Chronic Qualifiers: Esophagitis presence: without esophagitis Qualified Code(s): K21.9 - Gastro-esophageal reflux disease without esophagitis Category: Medical Code(s): K21.9 - Gastro-esophageal reflux disease without esophagitis (8) Abnormal electrocardiogram [ECG] [EKG]: Status: Acute Category: Medical Code(s): R94.31 - Abnormal electrocardiogram [ECG] [EKG] Plan 79-year-old female who presented for kyphoplasty. Had aspiration event in PACU. Necessitated intubation. Pulmonology consulted to assist with care. Discussed case with pain management physician, request admission to ICU for further management. I agreed to admit for further care. Patient has done well overnight. On minimal vent settings. SBT this morning, did well. Extubated after rounds. De-escalate stepdown level of care this afternoon if remains stable on nasal cannula oxygen. Problems addressed as follows: Acute respiratory failure due to aspiration Aspiration pneumonia/pneumonitis - Pulmonology consulted, discussed case today, will plan to extubate if passes SBT with stable blood gas. Continue broad-spectrum antibiotics for aspiration pneumonia. -Supplemental oxygen as needed for goal sats greater 90%. Extubated to nasal cannula. Currently on 2 to 3 L. -White count elevated at 14. Hemoglobin 12. Kidney function normal with BUN 20 , creatinine 0.5 - ceftriaxone 2 g every 24 hours and doxycycline 100 mg twice daily. DuoNebs every 4 hours as needed. - Repeat CBC, CMP, magnesium ordered for the morning. -Chest x-ray per my review shows significant inflammation/airspace disease bilaterally Hypertension: Resume irbesartan as formulary conversion for home losartan. Resume metoprolol succinate 25 mg daily Resume home Wellbutrin, gabapentin, Citalopram Protonix 40 mg IV daily for GI prophylaxis Lovenox 40 mg subcu daily for DVT prophylaxis Full code
[2024-10-18] MEDS: IRBESARTAN 75MG TABLET 75 MG PO (18:12)
[2024-10-18] MEDS: METOPROLOL SUCCINATE XL 25MG TABLET 25 MG PO (18:12)
--- NOTE | 2024-10-18 18:47 | PC.NURSE ---
Notified of BP of 183/78, restarted home meds and stated to give metoprolol and irbesartan per DEC. Pt BP now 149/70.
[2024-10-18] MEDS: PANTOPRAZOLE 40MG VIAL 40 MG IV (20:16)
[2024-10-18] MEDS: SODIUM CHLORIDE 0.9% 10ML VIAL 10 ML IV (20:16)
[2024-10-18] MEDS: HYDRALAZINE 20MG/ML VIAL 10 MG IV (23:38)
[2024-10-19] VITALS (20 sets, daily range): BP systolic 127–180; BP diastolic 46–89; PULSE 70–92; RESP 16–22; TEMP 36.8–37.3; O2SAT 89–98; BMI 29.0
[2024-10-19] MEDS: OXYCODONE 7.5MG W/APAP 325MG TABLET 1 EACH PO (01:55)
[2024-10-19] MEDS: ONDANSETRON 4MG/2ML VIAL 4 MG IV (02:05)
[2024-10-19] MEDS: IPRATROPIUM/ALBUTEROL 3 ML NEB IH ×4 (05:49→23:09)
--- NOTE | 2024-10-19 07:52 | ECG_ITS ---
APPROVED REPORT Exam: Resting ECG HR:76 bpm ECG Measurements Heart Rate 76 AXES [place] 136 P 52 QRSd 119 QRS 38 QT 402 T 68 QTc 432 Conclusion SINUS RHYTHM LEFT VENTRICULAR HYPERTROPHY AND ST-T CHANGE [VOLTAGE CRITERIA PLUS ST/T ABNORMALITY] POSSIBLE SEPTAL MYOCARDIAL INFARCTION , POSSIBLY ACUTE [30 ms Q WAVE IN V1/V2] ACUTE [facility] UNCONFIRMED REPORT Electronically signed by : Jose Remy MD 10/20/2024 13:39:28
[2024-10-19 07:53] LABS: Albumin Level 3.4 g/dl (3.5-5.0); Chloride 111 mmol/L (98-107); Potassium 3.9 mmoL/L (3.5-5.1); Sodium 139 mmol/L (136-145)
[2024-10-19 07:56] LABS: Alanine Aminotransferase 43 U/L (12-78); Albumin/Globulin Ratio 1.2 (1.1-1.8); Alkaline Phosphatase 85 U/L (38-126); Anion Gap 5.9 mEq/L (5-15); Aspartate Amino Transferase 62 U/L (14-36); Bilirubin,Total 2.1 mg/dl (0.2-1.3); Blood Urea Nitrogen 18 mg/dl (7-17); Calcium 9.3 mg/dl (8.4-10.2); Carbon Dioxide 26 mmol/L (22.0-30.0); Creatinine Clearance Estimated 48 mL/min (50-200); Estimated Glomerular Filt Rate 119 ml/min (>60); GFR (African American) 144 ML/MIN (>60); Globulin 2.8 g/dL (1.3-3.2); Glucose 96 mg/dl (74-100); Magnesium 1.8 mg/dl (1.6-2.3); Total Protein,Serum 6.2 g/dl (6.3-8.2)
--- NOTE | 2024-10-19 08:06 | PC.NURSE ---
pt noted to have changes in her rhythm strip at [facility] [facility]. I got an EKG and notified hospitalist. New orderd received. pt denies any CP,SOB
[2024-10-19 08:09] LABS: Basophils # 0.1 K/mm3 (0-0.2); Basophils % 0.5 % (0.1-2.0); Eosinophils # 0.3 K/mm3 (0.0-0.4); Eosinophils % 2.1 % (0.1-12.0); Hematocrit 35.8 % (37.0-47.0); Lymphocytes # 1.4 K/mm3 (0.7-4.5); Lymphocytes % 10.6 % (10-50); Mean Corpuscular HGB Conc 33.5 g/dL (31.8-35.4); Mean Corpuscular Hemoglobin 29.6 pg (27.0-31.2); Mean Corpuscular Volume 88.2 fl (81-99); Mean Platelet Volume 10.7 fl (7.4-10.4); Monocytes # 1.2 K/mm3 (0.1-1.0); Monocytes % 8.8 % (1.7-9.3); Neutrophils # 10.5 K/mm3 (1.8-7.8); Neutrophils % 77.5 % (37.0-80.0); Platelet Count 174 K/mm3 (142-424); Red Blood Count 4.06 M/mm3 (4.20-5.40); Red Cell Distribution Width 13.1 % (11.5-17.5); White Blood Count 13.5 K/mm3 (4.8-10.8)
[2024-10-19 08:21] LABS: Procalcitonin 2.46 ng/mL (0.0-2.0)
[2024-10-19] MEDS: CITALOPRAM 20MG TABLET 20 MG PO (08:35)
[2024-10-19] MEDS: ENOXAPARIN 40MG/0.4ML SYRINGE 40 MG SUBCUT (08:35)
[2024-10-19] MEDS: IRBESARTAN 150MG TAB 150 MG PO (08:35)
[2024-10-19] MEDS: buPROPion HCl SR 150MG TAB 150 MG PO (08:35)
[2024-10-19] MEDS: METOPROLOL SUCCINATE XL 25MG TABLET 25 MG PO (08:36)
[2024-10-19 08:37] LABS: Troponin I 0.04 ng/ml (0.00-0.034)
--- NOTE | 2024-10-19 08:43 | PC.NURSE ---
notified MD of troponin result. Also spoke with him regarding pt coughing while taking po meds.
[2024-10-19] MEDS: CEFTRIAXONE SODIUM 2 GM in 0.9 % SODIUM CHLORIDE 100 ML IV (11:05)
[2024-10-19] MEDS: DOXYCYCLINE HYCLATE 100 MG in 0.9 % SODIUM CHLORIDE 250 ML 166.667 MG IV (11:35)
[2024-10-19] MEDS: ACETAMINOPHEN 325MG TAB 650 MG PO (11:35)
[2024-10-19 11:56] LABS: Troponin I 0.04 ng/ml (0.00-0.034)
[2024-10-19 15:21] LABS: Troponin I 0.04 ng/ml (0.00-0.034)
--- NOTE | 2024-10-19 15:22 | P.PN_ITS ---
Subjective *Date: 10/19/24 *Time: 16:32 Interval history: Significant cough this morning after taking her pills with water. Stable on 2 L oxygen. No nausea or vomiting. Requesting to go home however unsure about ability to care for patient. Patient is alert and oriented x 4 Medical Exam Vital signs and Labs for Last 24 Hours: Vital Signs Temp Pulse Resp BP Pulse Ox O2 Del Method O2 Flow Rate 10/19/24 13:00 Nasal Cannula 2 10/19/24 12:00 75 10/19/24 12:00 98.7 F 10/19/24 11:56 88 10/19/24 11:56 87 10/19/24 11:00 Nasal Cannula 2 10/19/24 11:00 99.2 F 87 22 141/77 H 89 L Nasal Cannula 2 10/19/24 09:00 98.8 F 78 22 147/60 H 92 L Nasal Cannula 2 10/19/24 09:00 Nasal Cannula 10/19/24 08:44 92 L Nasal Cannula 10/19/24 08:00 85 10/19/24 08:00 91 L Nasal Cannula 10/19/24 07:52 98.7 F 10/19/24 06:24 Nasal Cannula 2 10/19/24 06:00 73 22 132/59 L 93 L Nasal Cannula 2 10/19/24 05:49 83 10/19/24 05:49 88 10/19/24 05:00 Nasal Cannula 2 10/19/24 04:00 99.0 F 10/19/24 04:00 70 10/19/24 04:00 Nasal Cannula 2 10/19/24 04:00 79 19 127/55 L 91 L Nasal Cannula 2 10/19/24 03:00 Nasal Cannula 2 10/19/24 02:00 88 16 167/88 H 90 L Nasal Cannula 2 10/19/24 01:00 Nasal Cannula 2 10/19/24 00:00 90 10/19/24 00:00 92 H 20 138/73 91 L Nasal Cannula 2 10/18/24 23:43 89 10/18/24 23:42 82 10/18/24 23:30 81 172/73 H 10/18/24 23:16 82 178/74 H 10/18/24 23:00 Nasal Cannula 2 10/18/24 22:00 80 18 166/69 H 91 L Nasal Cannula 2 10/18/24 21:00 Nasal Cannula 2 10/18/24 20:00 100 H 10/18/24 20:00 94 H 20 164/73 H 92 L Nasal Cannula 2 10/18/24 20:00 Nasal Cannula 2 10/18/24 20:00 98.6 F 10/18/24 19:57 Nasal Cannula 2 10/18/24 18:49 88 15 149/70 H 92 L Nasal Cannula 2 10/18/24 18:38 Nasal Cannula 2 10/18/24 18:20 93 H 10/18/24 18:18 89 22 183/78 H 92 L Nasal Cannula 2 10/18/24 18:10 84 10/18/24 17:00 89 35 H 91 L 10/18/24 17:00 149/63 H 10/18/24 17:00 Nasal Cannula 2 10/18/24 16:30 133/53 L 10/18/24 16:30 82 25 H 92 L 10/18/24 16:15 Nasal Cannula 2 10/18/24 16:00 90 10/18/24 16:00 99.8 F H 10/18/24 16:00 84 30 H 91 L Nasal Cannula 2 10/18/24 16:00 143/54 H FiO2 10/19/24 13:00 10/19/24 12:00 10/19/24 12:00 10/19/24 11:56 10/19/24 11:56 10/19/24 11:00 10/19/24 11:00 10/19/24 09:00 10/19/24 09:00 10/19/24 08:44 10/19/24 08:00 10/19/24 08:00 10/19/24 07:52 10/19/24 06:24 10/19/24 06:00 10/19/24 05:49 10/19/24 05:49 10/19/24 05:00 10/19/24 04:00 10/19/24 04:00 10/19/24 04:00 10/19/24 04:00 10/19/24 03:00 10/19/24 02:00 10/19/24 01:00 10/19/24 00:00 10/19/24 00:00 10/18/24 23:43 10/18/24 23:42 10/18/24 23:30 10/18/24 23:16 10/18/24 23:00 10/18/24 22:00 10/18/24 21:00 10/18/24 20:00 10/18/24 20:00 10/18/24 20:00 10/18/24 20:00 10/18/24 19:57 28 10/18/24 18:49 10/18/24 18:38 10/18/24 18:20 10/18/24 18:18 10/18/24 18:10 10/18/24 17:00 10/18/24 17:00 10/18/24 17:00 10/18/24 16:30 10/18/24 16:30 10/18/24 16:15 10/18/24 16:00 10/18/24 16:00 10/18/24 16:00 10/18/24 16:00 Intake and Output 10/18/24 10/19/24 10/19/24 23:59 07:59 15:59 Intake Total 250 / 250 Output Total 90 / 985 650 / 650 Balance -90 / -129.354 -400 / -400 Intake: Intake, Total IV Amount 250 / 250 Doxycycline Hyclate 100 mg In 0 250 / 250 .9 % Sodium Chloride 250 ml @ 166.667 mls/hr IV Q12H [facility] Rx#: [id number] Output: Output, Urine Amount 0 / 350 650 / 650 Output, Urine Amount (Catheter) 90 / 635 [place] 90 / 635 Other: Number of Unmeasured Voids 0 Weight 67.132 kg Patient Weight 10/19/24 23:59 Weight 67.132 kg Laboratory Results - last 24 hr 10/19/24 07:35: WBC 13.5 H, RBC 4.06 L, Hgb 12.0 L, Hct 35.8 L, MCV 88.2, MCH 29.6, MCHC 33.5, RDW 13.1, Plt Count 174, MPV 10.7 H, Neut % (Auto) 77.5, Lymph % (Auto) 10.6, [place] % (Auto) 8.8, Eos % (Auto) 2.1, Baso % (Auto) 0.5, Neut # (Auto) 10.5 H, Lymph # (Auto) 1.4, [place] # (Auto) 1.2 H, Eos # (Auto) 0.3, Baso # (Auto) 0.1, Sodium 139, Potassium 3.9, Chloride 111 H, Carbon Dioxide 26, Anion Gap 5.9, BUN 18 H, Creatinine 0.50 L, Estimated Creat Clear 48, Estimated GFR 119, Est GFR ( Amer) 144, Glucose 96, Calcium 9.3, Magnesium 1.8 D, Total Bilirubin 2.1 H, AST 62 H, ALT 43, Alkaline Phosphatase 85, C-Reactive Protein 165.0 H, Total Protein 6.2 L, Albumin 3.4 L, Globulin 2.8, Albumin/Globulin Ratio 1.2, Procalcitonin 2.46 H 10/19/24 08:00: Troponin I 0.04 H 10/19/24 11:09: Troponin I 0.04 H I & O for Labs for Last 24 Hours: Intake & Output 10/16/24 10/17/24 10/18/24 10/19/24 23:59 23:59 23:59 23:59 Intake Total 1971.959 / 1971.959 605.646 / 855.646 250 / 250 Output Total 620 / 620 985 / 985 650 / 650 Balance 1351.959 / 1351.959 -379.354 / -129.354 -400 / -400 Weight 64.6 kg 65.034 kg 67.132 kg Microbiology Reports for the Last 24 Hours: Microbiology 10/17/24 14:27 Anus CRE Surveillance Culture - Final 10/17/24 12:00 Bronchial Washings - Right Middle Lobe Gram Stain - Final 10/17/24 12:00 Bronchial Washings - Right Middle Lobe Bronchoalveolar Lavage Culture - Final 10/17/24 09:54 Sputum - Endotracheal Tube Aspirate Gram Stain - Final 10/17/24 09:54 Sputum - Endotracheal Tube Aspirate Sputum Culture - Final Constitutional: Present no acute distress, chronically ill appearing and cooperative Head: Present atraumatic and normocephalic Comment:: Alopecia Neck: Present trachea midline Respiratory: Present rhonchi and normal respiratory effort; Absent wheezes or crackles Cardiac: Present Reg Rate and Rhythm GI: Present soft and normal bowel sounds; Absent distention or tenderness Extremities: Present normal inspection and full ROM Skin: Present intact; Absent erythema Neuro: Present Grossly Intact, alert, awake, oriented x 3 and moves all extremities Assessment and Plan *Assessment and plan (1) Pneumonia: Status: Acute Category: Medical Code(s): J18.9 - Pneumonia, unspecified organism (2) Acute hypoxemic respiratory failure: Status: Acute Category: Medical Code(s): J96.01 - Acute respiratory failure with hypoxia (3) On mechanically assisted ventilation: Status: Acute Category: Medical Code(s): Z99.11 - Dependence on respirator [ventilator] status (4) Compression fracture of L1 lumbar vertebra: Status: Acute Category: Medical Code(s): S32.010A - Wedge compression fracture of first lumbar vertebra, initial encounter for closed fracture (5) CAD (coronary artery disease): Status: Chronic Qualifiers: Associated angina: without angina Coronary Disease-Associated Artery/Lesion type: [place] artery [place] vs. transplanted heart: [place] heart Qualified Code(s): I25.10 - Atherosclerotic heart disease of [place] coronary artery without angina pectoris Category: Medical Code(s): I25.10 - Atherosclerotic heart disease of [place] coronary artery without angina pectoris (6) HTN (hypertension): Status: Chronic Qualifiers: Hypertension type: essential hypertension Qualified Code(s): I10 - Essential (primary) hypertension Category: Medical Code(s): I10 - Essential (primary) hypertension (7) HLD (hyperlipidemia): Status: Chronic Qualifiers: Hyperlipidemia type: mixed hyperlipidemia Qualified Code(s): E78.2 - Mixed hyperlipidemia Category: Medical Code(s): E78.5 - Hyperlipidemia, unspecified (8) Gastroesophageal reflux disease: Status: Chronic Qualifiers: Esophagitis presence: without esophagitis Qualified Code(s): K21.9 - Gastro-esophageal reflux disease without esophagitis Category: Medical Code(s): K21.9 - Gastro-esophageal reflux disease without esophagitis (9) Abnormal electrocardiogram [ECG] [EKG]: Status: Acute Category: Medical Code(s): R94.31 - Abnormal electrocardiogram [ECG] [EKG] Plan 79-year-old female who presented for kyphoplasty. Had aspiration event in PACU. Necessitated intubation. Pulmonology consulted to assist with care. Discussed case with pain management physician, request admission to ICU for further management. I agreed to admit for further care. Patient did well on ventilator. Extubated yesterday. Stable on 2 L oxygen. Needs therapy eval prior to discharge. Continue treatment for pneumonia. Problems addressed as follows: Acute respiratory failure due to aspiration Aspiration pneumonia/pneumonitis - Pulmonology consulted, discussed case today, continue oxygen and broad- spectrum antibiotics. Continue breathing treatments. No other changes at this time -Supplemental oxygen as needed for goal sats greater 90%. Extubated to nasal cannula. Currently on 2 to 3 L. -White count elevated at 13.5, hemoglobin 12. Kidney function remains normal with BUN 18, creatinine 0.5. -CRP elevated at 165 - ceftriaxone 2 g every 24 hours and doxycycline 100 mg twice daily. DuoNebs every 4 hours as needed. - Repeat CBC, CMP, magnesium ordered for the morning. -PT, OT, speech consulted for the morning. Concern patient may need placement Hypertension: - Irbesartan 150 mg in the morning, 75 mg at night, metoprolol to succinate 25 mg daily. Showing improvement in blood pressure. Denies chest discomfort. - Has stable troponin of 0.04. EKG with chronic changes including left bundle branch block. Left cardiology evaluate in the morning given elevation in troponin. Resume home Wellbutrin, gabapentin, Citalopram Protonix 40 mg IV daily for GI prophylaxis Lovenox 40 mg subcu daily for DVT prophylaxis Full code N.p.o. pending speech eval
--- NOTE | 2024-10-19 17:48 | PC.NURSE ---
i got pt up to the BSC as well as the chair. She tolerated well. required assist x1 with a moderate amount of help. oscar legs are weak but she was able to follow commands well.
[2024-10-19] MEDS: SODIUM CHLORIDE 0.9% 10ML VIAL 10 ML IV (21:12)
[2024-10-19] MEDS: PANTOPRAZOLE 40MG VIAL 40 MG IV (21:12)
[2024-10-19] MEDS: IRBESARTAN 75MG TABLET 75 MG PO (21:13)
[2024-10-20] VITALS (13 sets, daily range): BP systolic 142–174; BP diastolic 49–92; PULSE 64–90; RESP 18–22; TEMP 36.4–36.8; O2SAT 85–96; BMI 26.9
[2024-10-20] MEDS: DOXYCYCLINE HYCLATE 100 MG in 0.9 % SODIUM CHLORIDE 250 ML 166.667 MG IV ×3 (00:23→23:12)
[2024-10-20] MEDS: IPRATROPIUM/ALBUTEROL 3 ML NEB IH ×3 (06:18→23:46)
[2024-10-20 06:22] LABS: Basophils # 0.1 K/mm3 (0-0.2); Basophils % 0.5 % (0.1-2.0); Eosinophils # 0.1 K/mm3 (0.0-0.4); Lymphocytes # 1.2 K/mm3 (0.7-4.5); Lymphocytes % 11.2 % (10-50); Mean Corpuscular HGB Conc 33.1 g/dL (31.8-35.4); Mean Corpuscular Hemoglobin 28.5 pg (27.0-31.2); Mean Corpuscular Volume 86.1 fl (81-99); Mean Platelet Volume 10.8 fl (7.4-10.4); Monocytes # 0.9 K/mm3 (0.1-1.0); Monocytes % 8.3 % (1.7-9.3); Neutrophils # 8.4 K/mm3 (1.8-7.8); Neutrophils % 78.3 % (37.0-80.0); Platelet Count 158 K/mm3 (142-424); Red Blood Count 3.61 M/mm3 (4.20-5.40); Red Cell Distribution Width 12.6 % (11.5-17.5); White Blood Count 10.7 K/mm3 (4.8-10.8)
[2024-10-20 06:41] LABS: Magnesium 1.9 mg/dl (1.6-2.3)
[2024-10-20 06:42] LABS: Alanine Aminotransferase 35 U/L (12-78); Albumin/Globulin Ratio 1.1 (1.1-1.8); Alkaline Phosphatase 89 U/L (38-126); Anion Gap 8.4 mEq/L (5-15); Aspartate Amino Transferase 47 U/L (14-36); Bilirubin,Total 1.6 mg/dl (0.2-1.3); Blood Urea Nitrogen 17 mg/dl (7-17); Calcium 8.6 mg/dl (8.4-10.2); Carbon Dioxide 27 mmol/L (22.0-30.0); Chloride 112 mmol/L (98-107); Creatinine Clearance Estimated 48 mL/min (50-200); Estimated Glomerular Filt Rate 154 ml/min (>60); GFR (African American) 186 ML/MIN (>60); Globulin 2.8 g/dL (1.3-3.2); Glucose 96 mg/dl (74-100); Potassium 3.4 mmoL/L (3.5-5.1); Sodium 144 mmol/L (136-145); Total Protein,Serum 5.8 g/dl (6.3-8.2)
[2024-10-20 06:50] LABS: Hematocrit 31.1 % (37.0-47.0); Hemoglobin 10.3 g/dL (12.2-16.2)
--- NOTE | 2024-10-20 08:11 | EXP.PHA.PN ---
Subjective *Date: 10/20/24 *Time: 08:11 Medical Exam Vital signs and Labs for Last 24 Hours: Vital Signs Temp Pulse Resp BP Pulse Ox O2 Del Method O2 Flow Rate 10/20/24 06:39 Nasal Cannula 2 10/20/24 06:19 75 10/20/24 06:19 78 10/20/24 06:19 94 L Nasal Cannula 2 10/20/24 06:00 67 22 149/68 H 96 Nasal Cannula 2 10/20/24 04:56 Nasal Cannula 2 10/20/24 04:00 98.0 F 10/20/24 04:00 80 10/20/24 04:00 95 Nasal Cannula 2 10/20/24 04:00 73 21 157/49 H 95 Nasal Cannula 2 10/20/24 03:00 Nasal Cannula 2 10/20/24 02:00 80 22 174/92 H 91 L Nasal Cannula 2 10/20/24 01:00 Nasal Cannula 2 10/20/24 00:00 80 10/20/24 00:00 97.6 F 10/20/24 00:00 81 20 162/65 H 93 L Nasal Cannula 2 10/19/24 23:09 79 10/19/24 23:09 84 10/19/24 23:09 95 Nasal Cannula 2 10/19/24 23:00 Nasal Cannula 2 10/19/24 22:00 72 20 180/89 H 98 Nasal Cannula 2 10/19/24 21:00 Nasal Cannula 2 10/19/24 20:00 98.2 F 10/19/24 20:00 80 10/19/24 20:00 Nasal Cannula 2 10/19/24 20:00 77 22 170/85 H 95 Nasal Cannula 2 10/19/24 19:32 Nasal Cannula 2 10/19/24 18:30 83 10/19/24 18:15 82 10/19/24 18:00 80 20 167/46 H 93 L Nasal Cannula 2 10/19/24 17:00 Nasal Cannula 2 10/19/24 16:00 70 10/19/24 16:00 94 L Nasal Cannula 10/19/24 16:00 79 20 161/85 H 94 L Nasal Cannula 2 10/19/24 15:00 Nasal Cannula 2 10/19/24 14:00 98.7 F 73 18 148/62 H 94 L Nasal Cannula 10/19/24 13:00 Nasal Cannula 2 10/19/24 12:00 75 10/19/24 12:00 98.7 F 10/19/24 11:56 88 10/19/24 11:56 87 10/19/24 11:00 Nasal Cannula 2 10/19/24 11:00 99.2 F 87 22 141/77 H 89 L Nasal Cannula 2 10/19/24 09:00 98.8 F 78 22 147/60 H 92 L Nasal Cannula 2 10/19/24 09:00 Nasal Cannula 10/19/24 08:44 92 L Nasal Cannula FiO2 10/20/24 06:39 10/20/24 06:19 10/20/24 06:19 10/20/24 06:19 10/20/24 06:00 10/20/24 04:56 10/20/24 04:00 10/20/24 04:00 10/20/24 04:00 10/20/24 04:00 10/20/24 03:00 10/20/24 02:00 10/20/24 01:00 10/20/24 00:00 10/20/24 00:00 10/20/24 00:00 10/19/24 23:09 10/19/24 23:09 10/19/24 23:09 10/19/24 23:00 10/19/24 22:00 10/19/24 21:00 10/19/24 20:00 10/19/24 20:00 10/19/24 20:00 10/19/24 20:00 10/19/24 19:32 28 10/19/24 18:30 10/19/24 18:15 10/19/24 18:00 10/19/24 17:00 10/19/24 16:00 10/19/24 16:00 10/19/24 16:00 10/19/24 15:00 10/19/24 14:00 10/19/24 13:00 10/19/24 12:00 10/19/24 12:00 10/19/24 11:56 10/19/24 11:56 10/19/24 11:00 10/19/24 11:00 10/19/24 09:00 10/19/24 09:00 10/19/24 08:44 Intake and Output 01/10/0110/20/24 10/20/24 23:59 07:59 15:59 Intake Total 250 / 250 Output Total 900 / 900 Balance -650 / -650 Intake: Intake, Total IV Amount 250 / 250 Doxycycline Hyclate 100 mg In 0 250 / 250 .9 % Sodium Chloride 250 ml @ 166.667 mls/hr IV Q12H [facility] Rx#: [id number] Output: Output, Urine Amount 900 / 900 Other: Number of Unmeasured Voids 0 Weight 62.188 kg Patient Weight 10/20/24 23:59 Weight 62.188 kg Laboratory Results - last 24 hr 10/19/24 07:35: WBC 13.5 H, RBC 4.06 L, Hgb 12.0 L, Hct 35.8 L, MCV 88.2, MCH 29.6, MCHC 33.5, RDW 13.1, Plt Count 174, MPV 10.7 H, Neut % (Auto) 77.5, Lymph % (Auto) 10.6, [place] % (Auto) 8.8, Eos % (Auto) 2.1, Baso % (Auto) 0.5, Neut # (Auto) 10.5 H, Lymph # (Auto) 1.4, [place] # (Auto) 1.2 H, Eos # (Auto) 0.3, Baso # (Auto) 0.1, Procalcitonin 2.46 H 10/19/24 08:00: Troponin I 0.04 H 10/19/24 11:09: Troponin I 0.04 H 10/19/24 14:30: Troponin I 0.04 H 10/20/24 05:49: WBC 10.7, RBC 3.61 L, Hgb 10.3 L D, Hct 31.1 L, MCV 86.1, MCH 28.5, MCHC 33.1, RDW 12.6, Plt Count 158, MPV 10.8 H, Neut % (Auto) 78.3, Lymph % (Auto) 11.2, [place] % (Auto) 8.3, Eos % (Auto) 1.0, Baso % (Auto) 0.5, Neut # (Auto) 8.4 H, Lymph # (Auto) 1.2, [place] # (Auto) 0.9, Eos # (Auto) 0.1, Baso # (Auto) 0.1, Sodium 144, Potassium 3.4 L, Chloride 112 H, Carbon Dioxide 27, Anion Gap 8.4, BUN 17, Creatinine 0.40 L, Estimated Creat Clear 48, Estimated GFR 154, Est GFR ( Amer) 186 D, Glucose 96, Calcium 8.6, Magnesium 1.9, Total Bilirubin 1.6 H, AST 47 H, ALT 35, Alkaline Phosphatase 89, Total Protein 5.8 L, Albumin 3.0 L D, Globulin 2.8, Albumin/Globulin Ratio 1.1 I & O for Labs for Last 24 Hours: Intake & Output 10/17/24 10/18/24 10/19/24 10/20/24 23:59 23:59 23:59 23:59 Intake Total 1971.959 / 1971.959 605.646 / 855.646 250 / 500 250 / 250 Output Total 620 / 620 985 / 985 650 / 650 900 / 900 Balance 1351.959 / 1351.959 -379.354 / -129.354 -400 / -150 -650 / -650 Weight 64.6 kg 65.034 kg 67.132 kg 62.188 kg Microbiology Reports for the Last 24 Hours: Microbiology 10/17/24 14:27 Anus CRE Surveillance Culture - Final 10/17/24 12:00 Bronchial Washings - Right Middle Lobe Gram Stain - Final 10/17/24 12:00 Bronchial Washings - Right Middle Lobe Bronchoalveolar Lavage Culture - Final 10/17/24 09:54 Sputum - Endotracheal Tube Aspirate Gram Stain - Final 10/17/24 09:54 Sputum - Endotracheal Tube Aspirate Sputum Culture - Final The patient's infection will respond to the chosen ABx?: Yes Is the patient receiving the right drug, dose, and route?: Yes Could a more targeted ABx be ordered?: No (AFEBRILE, WBC DOWN, NORMAL MOOKIE IN SPUTUM AND BRONCHIAL WASHES.)
--- NOTE | 2024-10-20 08:53 | CA_ITS ---
APPROVED REPORT EXAM: Comprehensive 2D, Doppler, and color-flow Echocardiogram Physician Assistant Psychiatry: Jael Pedersen RT(R) Ht: 4 ft 11 in Wt: 136lbs BSA: 1.57 BP: 146/72 mmHg Indications: elevated troponins, HTN, hyperlipidemia, GERD 2D Dimensions LA Volume 19.30 mL LA Volume Index 12.29 mL/m2 (M/F) 16-34 EF AP4 61.20 % GL Strain -21.0 % M-Mode Dimensions RVDd 2.13 cm (0.9-2.6) LA Diam 3.08 cm (1.9-4.0) LVDd 3.45 cm (3.5-5.7) LVDs 2.54 cm (3.5-5.7) IVSd 0.66 cm (0.6-1.1) PWd 0.78 cm (0.6-1.1) EF (Teich) 52.70% FS 26.40% EDV (Teich) 49.10 mL ESV (Teich) 23.20 mL LV Diastology E Decel Time 280 (160-240 msec) E/A Ratio 0.87 Aortic Valve FAITH Index 1.50 cm2/m2 AoV Peak Dagoberto. 219.0 (50-130 cm/s) AI PHT 326.00 ms AO Peak GR. 19.10 mmHg AO Mean GR. 9.50 (<5 mmHg) AO VTI 42.7 (18-25 cm) FAITH (VTI) 2.40 (2.5-4.5 cm2) Mitral Valve MV A Velocity 94.0 (40-130 cm/s) E/A Ratio 0.87 Tricuspid Valve TR P. Velocity 387.00 cm/s RAP Estimate 10.00 mmHg RVSP 70.00 mmHg Left Ventricle The left ventricle is normal size. The left ventricular systolic function is normal. The left ventricular ejection fraction is within the normal range. There is increased thickness. There is normal LV segmental wall motion. The left ventricular diastolic function is normal. LVEF is 65% Right Ventricle The right ventricle is normal size. The right ventricular systolic function is normal. Atria The left atrium size is normal. The right atrium size is normal. There is no Doppler evidence of interatrial shunt. Aortic Valve The aortic valve is mildly thickened. FAITH by continuity equation is 1.9 cm???. Peak velocity 2.1 m/s. Mean AV gradient was 9 mmHg. Max AV gradient is 19 mmHg Trace aortic regurgitation. Mild aortic stenosis. Mitral Valve The mitral valve leaflets are mildly thickened. No evidence of mitral valve stenosis. Trace mitral regurgitation. Tricuspid Valve The tricuspid valve leaflets are thin and pliable. Mild tricuspid regurgitation. RVSP is 50-55 mmHg. Pulmonic Valve The pulmonary valve is normal in structure. Mild regurgitation. Great Vessels The aortic root is normal in size. IVC is normal in size and collapses >50% with inspiration. Pericardium There is no pericardial effusion. Other Information Study Quality: Fair Conclusion Normal biventricular systolic function. Mild (FAITH by continuity equation is 1.9 cm???. Peak velocity 2.1 m/s. Mean AV gradient was 9 mmHg. Max AV gradient is 19 mmHg). Mild TR. Elevated RVSP 50 to 55 mmHg. Electronically signed by : Shayla Matthews MD 10/20/2024 12:33:27
[2024-10-20] MEDS: CITALOPRAM 20MG TABLET 20 MG PO (09:23)
[2024-10-20] MEDS: METOPROLOL SUCCINATE XL 25MG TABLET 25 MG PO (09:23)
[2024-10-20] MEDS: IRBESARTAN 150MG TAB 150 MG PO (09:23)
[2024-10-20] MEDS: ENOXAPARIN 40MG/0.4ML SYRINGE 40 MG SUBCUT (09:23)
[2024-10-20] MEDS: ASPIRIN EC 81MG TABLET 81 MG PO (09:23)
[2024-10-20] MEDS: buPROPion HCl SR 150MG TAB 150 MG PO (09:23)
--- NOTE | 2024-10-20 09:23 | P.CONCA_ITS ---
History of Present Illness History of Present Illness Consult date: 10/20/24 Requesting physician: Justino Purdy Chief complaint: Aspiration status post elective procedure History of present illness: This is a 79-year-old white female with past medical history of mild, nonflow limiting coronary artery disease-last heart cath in 2019, hypertension, hyperlipidemia and trace aortic insufficiency who presented to hospital for an elective kyphoplasty for an L1 compression fracture. Patient had an aspiration event status post procedure which resulted in acute respiratory failure and intubation. Pulmonology is following and patient was extubated yesterday. Serial troponins have been 0.04. EKG shows chronic changes of a left bundle branch block. Cardiology was asked to evaluate for elevated troponin. Patient denies chest pain. Reports mild shortness of breath and cough. [facility] Disclaimer: The information contained in this section may have been updated after the patient was seen, as this information can be updated by other users. Medical History Pneumonia Thyroid nodule Memory loss Ataxia, unspecified Lumbago with sciatica, left side Primary generalized (osteo)arthritis Vitamin D deficiency, unspecified Abnormal electrocardiogram [ECG] [EKG] Fibromyalgia Abnormal EKG Diastolic dysfunction HTN (hypertension) HLD (hyperlipidemia) Gastroesophageal reflux disease Surgical History History of tonsillectomy Presence of artificial knee joint, bilateral History of cholecystectomy H/O total hysterectomy Family History Other Family history of Alzheimer disease Family history of cancer Social History Smoking Status: Never smoker second hand exposure: No alcohol intake: never substance use type: denies use current occupational status: other Travel in the last 8 weeks: Outside the [facility] household members: spouse housing: house current occupational exposures/hazards: No caffeine: Yes Have you lived/traveled outside [place] in past 30 days?: No Contact w/someone who lives/traveled outside US past 30 days?: No Exposure to someone with infectious disease in past 14 days?: No Do you have a fever (greater than 100.4 F or 38 C)?: No Have you tested positive for COVID-19: No Exposed to someone with COVID-19 in past 14 days?: No Do you have a sore throat?: No Do you have a cough?: No Do you have any weakness?: No Are you experiencing any nausea/vomitting?: No Do you have any diarrhea?: No Are you experiencing any unusual bleeding?: No Do you have any muscle aches/pain?: No Do you have any abdominal pain?: No Are you experiencing loss of taste or smell?: No Review of Systems Review of Systems Review of systems:: pertinent systems reviewed and negative unless documented below *Cardiovascular Cardiovascular: Denies chest pain at rest and Reports dyspnea on exertion *Respiratory Respiratory: Reports cough, Reports dyspnea on exertion and Reports excessive phlegm production Exam Data for Last 24 hours Vital signs and Labs for Last 24 Hours: Temp Pulse Resp BP Pulse Ox O2 Del Method O2 Flow Rate 98.0 F 82 22 153/66 H 90 L Nasal Cannula 2 10/20/24 04:00 10/20/24 08:00 10/20/24 06:00 10/20/24 08:00 10/20/24 08:00 10/20/24 08:00 10/20/24 08:00 FiO2 28 10/19/24 19:32 Laboratory Results - last 24 hr 10/19/24 11:09: Troponin I 0.04 H 10/19/24 14:30: Troponin I 0.04 H 10/20/24 05:49: WBC 10.7, RBC 3.61 L, Hgb 10.3 L D, Hct 31.1 L, MCV 86.1, MCH 28.5, MCHC 33.1, RDW 12.6, Plt Count 158, MPV 10.8 H, Neut % (Auto) 78.3, Lymph % (Auto) 11.2, [place] % (Auto) 8.3, Eos % (Auto) 1.0, Baso % (Auto) 0.5, Neut # (Auto) 8.4 H, Lymph # (Auto) 1.2, [place] # (Auto) 0.9, Eos # (Auto) 0.1, Baso # (Auto) 0.1, Sodium 144, Potassium 3.4 L, Chloride 112 H, Carbon Dioxide 27, Anion Gap 8.4, BUN 17, Creatinine 0.40 L, Estimated Creat Clear 48, Estimated GFR 154, Est GFR ( Amer) 186 D, Glucose 96, Calcium 8.6, Magnesium 1.9, Total Bilirubin 1.6 H, AST 47 H, ALT 35, Alkaline Phosphatase 89, Total Protein 5.8 L, Albumin 3.0 L D, Globulin 2.8, Albumin/Globulin Ratio 1.1 I & O for Last 24 hours: Intake & Output 10/17/24 10/18/24 10/19/24 10/20/24 23:59 23:59 23:59 23:59 Intake Total 1971.959 / 1971.959 605.646 / 855.646 250 / 500 250 / 250 Output Total 620 / 620 985 / 985 650 / 650 900 / 900 Balance 1351.959 / 1351.959 -379.354 / -129.354 -400 / -150 -650 / -650 Weight 142 lb 6.698 oz 143 lb 6 oz 148 lb 137 lb 1.6 oz Microbiology Reports for the Last 24 Hours: Microbiology 10/17/24 14:27 Anus CRE Surveillance Culture - Final 10/17/24 12:00 Bronchial Washings - Right Middle Lobe Gram Stain - Final 10/17/24 12:00 Bronchial Washings - Right Middle Lobe Bronchoalveolar Lavage Culture - Final 10/17/24 09:54 Sputum - Endotracheal Tube Aspirate Gram Stain - Final 10/17/24 09:54 Sputum - Endotracheal Tube Aspirate Sputum Culture - Final Constitutional Constitutional: no acute distress *Routine Respiratory Exam Respiratory: Present wheezes and symmetric chest movement *Routine Cardiovascular Exam Cardiovascular: Present RRR, Normal S1 and Normal S2 *Routine Abdominal Exam Abdominal: Present soft and normoactive bowel sounds; Absent tenderness *Routine Extremities Exam Extremities: Present full ROM and normal capillary refill; Absent edema *Routine Skin Exam Skin: Present intact, dry and warm Detailed Neck Exam: Thyroids Thyroid: Absent bruit Meds Home Medications and Allergies Home Medications ?Medication ?Instructions ?Recorded ?Confirmed ?Type aspirin 81 mg tablet,delayed 81 mg PO DAILY 04/22/18 10/15/24 History release [id number]-qief 8 mg-folic 400 1 tab PO DAILY supplement 09/17/20 10/15/24 History mcg-K 50 mcg-lutein 300 mcg tablet (Centrum Silver Women) hydrocortisone 2.5 % topical cream 1 applic topical DIRECTED Skin 10/31/21 10/15/24 History Condition gabapentin 100 mg capsule 100 mg PO BIDP PRN nerve pain 05/15/23 10/17/24 History metoprolol succinate 25 mg 25 mg PO DAILY #90 tabs 12/10/23 10/15/24 Rx tablet,extended release 24 hr cholecalciferol (vitamin D3) 75 3,000 unit PO DAILY 03/11/24 10/17/24 History mcg (3,000 unit) tablet bupropion HCl 150 mg tablet,12 hr 150 mg PO DAILY #90 ea 08/12/24 10/15/24 Rx sustained-release omeprazole 20 mg capsule,delayed 20 mg PO DAILY #30 caps 09/11/24 10/15/24 Rx release atorvastatin 40 mg tablet 40 mg PO HS 10/17/24 10/17/24 History citalopram 20 mg tablet 20 mg PO DAILY 10/17/24 10/17/24 History losartan 100 mg tablet 100 mg PO DAILY 10/17/24 10/17/24 History New Prescriptions to Start Prescriptions: Allergies Allergy/AdvReac Type Severity Reaction Status Date / Time morphine Allergy Unknown Verified 10/15/24 13:55 allergy reaction propoxyphene (From Darvon) Allergy Unknown Verified 10/15/24 13:55 allergy reaction thimerosal (From Merthiolate Allergy Unknown Verified 10/15/24 13:55 (thimerosal)) allergy reaction Assessment and Plan *Assessment and plan (1) Acute hypoxemic respiratory failure: Status: Acute Category: Medical Code(s): J96.01 - Acute respiratory failure with hypoxia (2) CAD (coronary artery disease): Status: Chronic Qualifiers: Coronary Disease-Associated Artery/Lesion type: [place] artery [place] vs. transplanted heart: [place] heart Associated angina: without angina Qualified Code(s): I25.10 - Atherosclerotic heart disease of [place] coronary artery without angina pectoris Category: Medical Code(s): I25.10 - Atherosclerotic heart disease of [place] coronary artery without angina pectoris (3) HTN (hypertension): Status: Chronic Qualifiers: Hypertension type: essential hypertension Qualified Code(s): I10 - Essential (primary) hypertension Category: Medical Code(s): I10 - Essential (primary) hypertension (4) HLD (hyperlipidemia): Status: Chronic Qualifiers: Hyperlipidemia type: mixed hyperlipidemia Qualified Code(s): E78.2 - Mixed hyperlipidemia Category: Medical Code(s): E78.5 - Hyperlipidemia, unspecified (5) Elevated troponin: Status: Acute Category: Medical Code(s): R79.89 - Other specified abnormal findings of blood chemistry (6) Left bundle branch block: Status: Acute Category: Medical Code(s): I44.7 - Left bundle-branch block, unspecified Plan Recent kyphoplasty for L1 compression fracture Acute aspiration requiring intubation-currently extubated History of mild, nonflow limiting coronary artery disease Elevated troponin Chronic Left bundle branch block Serial troponins- 0.04 in the setting of acute illness EKG shows a chronic left bundle branch block/LVH Patient denies chest pain Normal Myoview 2022 Normal biventricular systolic function noted 05/2023 Will repeat echo. If no changes can follow-up outpatient for further ischemic evaluation. Continue aspirin 81 mg p.o. daily and atorvastatin 40 mg p.o. daily Hypertension Continue irbesartan 150 mg p.o. daily mg p.o. daily metoprolol succinate 25 mg p.o. daily Hyperlipidemia LDL goal less than 55, LDL is 81 Increase atorvastatin to 80mg po daily CV summary: repeat echo pending CV meds: Aspirin 81 mg p.o. daily Atorvastatin 80 mg p.o. daily Irbesartan 150 mg p.o. daily Toprol 25 mg p.o. daily
--- NOTE | 2024-10-20 09:45 | HMH.PTEV ---
Physical Therapy Evaluation Rehab PT IP Evaluation Start: 10/19/24 11:01 Freq: ONCE Status: Active Protocol: Document 10/20/24 09:32 BING (Rec: 10/20/24 09:44 BING [id number]) Subjective/History History History Per H&P: Mrs. Hansen is a 79 -year-old female with history of L1 compression fracture. Presented today for elective kyphoplasty. Tolerated procedure well however in postop had an aspiration event . Had not eaten since 6:00 last night but still threw up solid chunks of food. Aspirated causing acute respiratory failure. Was intubated emergently in PACU for airway protection and due to hypoxia. Necessitating admission to ICU for further management. Pulmonology consulted to assist with care Subjective Subjective PLOF: IND with all functional mobility without AD use. Still driving. Home: Lives in a home with her . Home does have stairs. Pt owns a RW. Available assistance: able to assist as needed per pt report. New diagnosis of cancer in past 12 No months? Rehab PT IP Eval Objective Appearance Patient Behavior Appropriate,Cooperative Patient Orientation Person,Place Difficulty following instructions none Speech Pattern Clear Ambulation Patient Able to Ambulate Yes Ambulation Observation IP General Gait Pattern Observation Wide Based Gait Ambulation Distance (feet) 28 Ambulation Assistive Device Rolling Walker Ambulation Ability Contact Guard/Hand Hold Balance Ability to Arise Able, uses arms to help Sitting Balance Steady, safe Standing Balance Steady, wide stance Dynamic Sitting Balance Ability Good Dynamic Standing Balance Ability Fair Transfers Bed Transfer Ability Contact Guard/Hand Hold Sit to Stand Bed Transfer Ability Minimal x 1 (25% assist) Rehab PT IP prob,goals,plan Problems Date of Evaluation: 10/20/24 PT IP Problems Bed Mobility,Transfers,Gait, Balance,Safety Rehab Potential Rehab Potential Good Equipment Needs Assistive Devices Rolling / Wheeled Walker Plan PT Intervention Plan Bed Mobility,Transfers,Gait, Balance,Safety,Therapeutic Exercise Other Intervention Plan 1-2 times PT Plan Frequency Daily Duration LOS Discharge Goals Bed Transfer Ability Independent Sit to Stand Chair Transfer Ability Supervision/Stand by Ambulation Assistive Device Rolling Walker Ambulation Distance (feet) 50 Discharge Plan PT Discharge Plan Initial physical therapy evaluation performed. Patient presents below baseline at this time in functional mobility, transfers, gait, and strength. Pt would benefit from skilled PT while at [facility] to prevent further functional decline and maximize safety with mobility. Pt most appropriate to d/c home when deemed medically necessary d/t current level of mobility, home set-up, and family support. PT recommending home health PT services to address deficits. Eval Complexity Eval Charge Codes 32196 - Moderate Complexity PHYSICIAN CERTIFICATION: I certify the specified therapy services for Sarah Hansen are required, authorized, and reviewed every 30 days.
--- NOTE | 2024-10-20 09:54 | HMH.OTEV ---
OT Inpatient Evaluation Rehab OT IP Evaluation Start: 10/19/24 11:01 Freq: ONCE Status: Active Protocol: Document 10/20/24 09:48 [facility] (Rec: 10/20/24 09:54 [facility] [id number]) Rehab OT IP Assessment Subjective History Pt oriented x 3 on arrival. Pt agreeable to engage in therapy evaluation. Pt admitted on 10/17/24 due to aspiration and respiratory failure. Per H&P: Mrs. Hansen is a 79 -year-old female with history of L1 compression fracture. Presented today for elective kyphoplasty. Tolerated procedure well however in postop had an aspiration event . Had not eaten since 6:00 last night but still threw up solid chunks of food. Aspirated causing acute respiratory failure. Was intubated emergently in PACU for airway protection and due to hypoxia. Necessitating admission to ICU for further management. Pulmonology consulted to assist with care Subjective PLOF: IND with all functional mobility without AD use. Still driving. Home: Lives in a home with her . Home does have stairs. Pt owns a RW. ADLs/IADLS: Pt claims she is independent with all ADLs and IADLS prior to admission Available assistance: able to assist as needed per pt report. Objective Patient Orientation Person,Place,Birthday Right Upper Extremity Gross ROM WFL Left Upper Extremity Gross ROM WFL Transfer Training Sit/Stand Transfer Assist Level Contact Guard/Hand Hold Chair Transfer Ability Contact Guard/Hand Hold Chair Transfer Technique Sit to/from Ambulatory Chair Transfer Assistive Devices Rolling Walker Lower Body Dressing Ability Minimal Assistance Performing Toilet Hygiene Ability Minimal Assistance Overall Commode/Toilet Transfer Ability Contact Guard Rehab OT IP prob,goals,plan Problems Date of Evaluation: 10/20/24 OT IP Problems Bed Mobility,Transfers,Balance ,Self care,Safety Rehab Potential Rehab Potential Good Equipment Needs Assistive Devices Rolling / Wheeled Walker Plan OT intervention Plan Bed Mobility,Transfers,Balance ,Self care,Safety,Therapeutic Exercise OT Plan Frequency Daily Duration LOS Discharge Goals Bed Mobility Ability Standby Assistance Sit to Stand Chair Transfer Ability Supervision/Stand by Chair Transfer Ability Supervision/Stand by Chair Transfer Technique Sit to/from Ambulatory Chair Transfer Assistive Devices Rolling Walker Lower Body Dressing Ability Contact Guard Upper Body Dressing Ability Standby Assistance Bathing Ability Contact Guard Performing Toilet Hygiene Ability Standby Assistance Overall Commode/Toilet Transfer Ability Standby Assistance Commode/Toilet Transfer Technique Sit to/from Ambulatory Discharge Plan OT Discharge Plan Initial occupational therapy evaluation performed. Patient presents below baseline at this time in functional transfers, ADL independence, and strength. Pt would benefit from skilled OT while at [facility] to prevent further functional decline and maximize safety. Pt most appropriate to d/c home once she is medically stable per physician. OT recommending home health OT services to address deficits. Eval Complexity Eval Charge Codes 96804 - Moderate Complexity PHYSICIAN CERTIFICATION: I certify the specified therapy services for Sarah Hansen are required, authorized, and reviewed every 30 days.
--- NOTE | 2024-10-20 10:00 | P.PN_ITS ---
Subjective *Date: 10/20/24 *Time: 11:21 Interval history: Patient admits significant improvement in her respiratory status over the weekend. Pulmonology Exam Inpatient Vital signs and Labs for Last 24 Hours: Temp Pulse Resp BP Pulse Ox O2 Del Method O2 Flow Rate 98.2 F 82 22 153/66 H 90 L Nasal Cannula 2 10/20/24 08:00 10/20/24 08:00 10/20/24 06:00 10/20/24 08:00 10/20/24 08:00 10/20/24 08:00 10/20/24 08:00 FiO2 28 10/19/24 19:32 Laboratory Results - last 24 hr 10/19/24 11:09: Troponin I 0.04 H 10/19/24 14:30: Troponin I 0.04 H 10/20/24 05:49: WBC 10.7, RBC 3.61 L, Hgb 10.3 L D, Hct 31.1 L, MCV 86.1, MCH 28.5, MCHC 33.1, RDW 12.6, Plt Count 158, MPV 10.8 H, Neut % (Auto) 78.3, Lymph % (Auto) 11.2, [place] % (Auto) 8.3, Eos % (Auto) 1.0, Baso % (Auto) 0.5, Neut # (Auto) 8.4 H, Lymph # (Auto) 1.2, [place] # (Auto) 0.9, Eos # (Auto) 0.1, Baso # (Auto) 0.1, Sodium 144, Potassium 3.4 L, Chloride 112 H, Carbon Dioxide 27, Anion Gap 8.4, BUN 17, Creatinine 0.40 L, Estimated Creat Clear 48, Estimated GFR 154, Est GFR ( Amer) 186 D, Glucose 96, Calcium 8.6, Magnesium 1.9, Total Bilirubin 1.6 H, AST 47 H, ALT 35, Alkaline Phosphatase 89, Total Protein 5.8 L, Albumin 3.0 L D, Globulin 2.8, Albumin/Globulin Ratio 1.1 Temp Pulse Resp BP Pulse Ox O2 Del Method O2 Flow Rate 96.9 F L 83 18 146/72 H 98 Mechanical Ventilation 10 10/17/24 10:32 10/17/24 09:50 10/17/24 10:00 10/17/24 09:50 10/17/24 09:50 10/17/24 09:50 10/17/24 09:50 FiO2 100 10/17/24 10:00 Laboratory Results - last 24 hr 10/17/24 09:55: Specimen Source Left radial, O2 % 100, ABG pH 7.37, ABG pCO2 40.5, ABG pO2 76.7 L, ABG HCO3 22.8, ABG Total CO2 24.0, ABG O2 Saturation 95, ABG Base Excess -2.5 L, Rory Test Patient unable, Vent Rate 18, Tidal Volume 400, PEEP 5 10/17/24 10:10: WBC 7.5, RBC 4.62, Hgb 13.8, Hct 39.7, MCV 85.9, MCH 29.9, MCHC 34.8, RDW 12.9, Plt Count 222, MPV 10.5 H, Neut % (Auto) 62.0, Lymph % (Auto) 28.8, [place] % (Auto) 5.4, Eos % (Auto) 1.9, Baso % (Auto) 0.8, Neut # (Auto) 4.7, Lymph # (Auto) 2.2, [place] # (Auto) 0.4, Eos # (Auto) 0.1, Baso # (Auto) 0.1, Sodium 136, Potassium 5.6 H, Chloride 108 H, Carbon Dioxide 24, Anion Gap 9.6, BUN 14, Creatinine 0.50 L, Estimated Creat Clear 42, Estimated GFR 119, Est GFR ( Amer) 144, Glucose 114 H, Calcium 8.7, Magnesium 1.8, Total Bilirubin 1.5 H, AST 102 H, ALT 66, Alkaline Phosphatase 91, Total Protein 7.3, Albumin 4.2, Globulin 3.1, Albumin/Globulin Ratio 1.4 I & O for Labs for Last 24 Hours: Intake & Output 10/17/24 10/18/24 10/19/24 10/20/24 23:59 23:59 23:59 23:59 Intake Total 1971.959 / 1971.959 605.646 / 855.646 250 / 500 250 / 250 Output Total 620 / 620 985 / 985 650 / 650 900 / 900 Balance 1351.959 / 1351.959 -379.354 / -129.354 -400 / -150 -650 / -650 Weight 142 lb 6.698 oz 143 lb 6 oz 148 lb 137 lb 1.6 oz Intake & Output 10/14/24 10/15/24 10/16/24 10/17/24 23:59 23:59 23:59 23:59 Intake Total 903.006 / 903.006 Balance 903.006 / 903.006 Weight 130 lb 142 lb 7 oz Microbiology Reports for the Last 24 Hours: Microbiology 10/17/24 14:27 Anus CRE Surveillance Culture - Final 10/17/24 12:00 Bronchial Washings - Right Middle Lobe Gram Stain - Final 10/17/24 12:00 Bronchial Washings - Right Middle Lobe Bronchoalveolar Lavage Culture - Final 10/17/24 09:54 Sputum - Endotracheal Tube Aspirate Gram Stain - Final 10/17/24 09:54 Sputum - Endotracheal Tube Aspirate Sputum Culture - Final Constitutional: Present moderate distress Comment:: Intubated and Sedated Head: Present normocephalic and atraumatic Neck: Present normal inspection and trachea midline Respiratory: Present rhonchi and able to speak in complete sentences; Absent wheezes Cardiac: Present S1/S2 and Tachycardia GI: Present soft; Absent distention or tenderness Skin: Present intact; Absent cyanosis Neuro: Present alert, awake and oriented x 3 Extremities: Present normal inspection; Absent clubbing or cyanosis Psychiatric: Present normal affect and cooperative Assessment and Plan *Assessment and plan (1) On mechanically assisted ventilation: Status: Acute Category: Medical Code(s): Z99.11 - Dependence on respirator [ventilator] status (2) Acute hypoxemic respiratory failure: Status: Acute Category: Medical Code(s): J96.01 - Acute respiratory failure with hypoxia (3) Pneumonia: Status: Acute Category: Medical Code(s): J18.9 - Pneumonia, unspecified organism Plan Ms. Hansen presented for an outpatient elective kyphoplasty procedure e xperienced aspiration event following hypoxic respiratory failure needing intubation and mechanical ventilatory support and pulmonary was called for further evaluation and management. On admission no evidence of leukocytosis. ABG did not show any evidence of hypoxic/hypercarbic respiratory failure while receiving 100% FiO2. Status post bronchoscopy no obvious foreign body aspiration noted. His airway erythema noted. Comprehensive respiratory viral PCR panel. Respiratory status status postextubation. Tolerating well on nasal cannula so far. Continue to receive ceftriaxone azithromycin. BAL cultures no growth so far. On examination patient does not appear to be in any respiratory distress. On 2 L nasal cannula oxygen supplementation saturating 93%. Denies any significant smoking history not using oxygen supplementation/inhalers at baseline. Plan: -Follow-up chest x-ray prior to discharge -Continue ceftriaxone erythromycin, antibiotics can be weaned to cefdinir to complete a total of -Continue oxygen supplementation to maintain O2 saturation goal of 90% and above # Thank you for involving pulmonary in this patient care. Follow the patient in pulmonary clinic 1 to 2 weeks post discharge.
--- NOTE | 2024-10-20 10:01 | XR_ITS ---
FINAL REPORT CLINICAL HISTORY: PNM COMPARISON: 10/18/2024 FINDINGS: There has been interval extubation and NG tube removal. There is significant improvement in left lower lobe pneumonia. The right lung infiltrate is stable. No evidence of effusion. IMPRESSION: Improving right lung pneumonia. Interval extubation. Reviewed, Interpreted and Dictated by Kelsie Sauceda MD Transcribed by Shannan Bennett Authenticated and [facility]
--- NOTE | 2024-10-20 10:17 | SW/DCPLANNER ---
Addendum entered by [facility] 10/21/24 13:51: Katy malagon/ [facility] stated that patient has been accepted for services. Addendum entered by [facility] 10/21/24 12:51: Patient information/order has been faxed to Katy malagon/ [facility]. Addendum entered by [facility] 10/21/24 08:51: Patient is no longer interested in placement at [facility] and prefers to return home w/ her and home health services. Patient does not have a home health agency preference. I will set up home health at time of discharge. Per MD patient will discharge home today. Addendum entered by [facility] 10/20/24 15:33: Kira w/ [facility] is currently reviewing patient information. Addendum entered by [facility] 10/20/24 13:28: Patient/ are now requesting for information to be faxed to [facility]. I will fax patient information today and follow up w/ Kira at [facility]. Per MD patient will be ready for discharge tomorrow morning. Original Note: I spoke w/ patient this AM regarding plans once medically stable for discharge. PT/OT evaluated patient and recommended home health services at time of discharge. Patient stated that she resides at home w/ her and is agreeable to home health services. Patient does not have an agency preference. Patient also stated that she has a rolling walker at home. I will set up home health services at time of discharge.
--- NOTE | 2024-10-20 11:08 | HMH.SLDYSPHA ---
Speech & Language Evaluation Speech/Language Dysphagia Evaluation Start: 10/20/24 10:44 Freq: ONCE Status: Active Protocol: Document 10/20/24 10:44 KATJA (Rec: 10/20/24 11:08 [facility] [id number]) Co-signed By ST May Dysphagia Assess/Goals/Plan Assessment Date of Evaluation: 10/20/24 Evaluation Type Initial Certification Assessment/Problems coughing while drinking, extubation protocol per MD order Does Patient Qualify for Service Yes Qualify/Failure Comment Based on clinical observations made throughout clinical bedside swallow evaluation, further skilled speech therapy services are warranted to assess pt's diet tolerance. Recommendations PHYSICIAN CERTIFICATION: The specified therapy services are required, authorized, and reviewed every 30 days. Pt will be seen # times/week 3 for # weeks 4 Diet Recommendations Normal Liquid Type Recommendations Normal/Thin SL Swallow Guidelines Alt bite w/sip thru meal, Standard Aspiration Prec.,Eat at slow rate,Oral Care Education Dysphagia Swallow Precautions/Strategies Sitting Upright (90 deg),No Straw,Small Bites and Sips, Alternate Liquids/Solids Plan Anticipate reaching STG in # weeks 2 Anticipate reaching LTG in # weeks 4 Pt/Guardian verbally ack understanding Yes of dx/prognosis/goals G -code Required No STG-Other Comment/Non-Specific 1. Pt will tolerate PO diet of thin liquids/regular food with no overt s/sx of aspiration throughout hospital admission. [employer] Goals Diet Regular with Liquids Thin Liquids Education Instructions provided SCOWMAN discussed clinical observations made throughout bedside CSE, aspiration precautions/compensatory strategies, and diet recommendations with pt, nursing, and CM, all of which expressed understanding. Pt/Caregiver able to recall information Able to recall/restate Reinforcement needed No Speech & Language HPI History Present Illness Description of Patient Problem SCOWMAN pulled the following information from pt's H&P and chest x-ray: Mrs. Hansen is a 79-year-old female with history of L1 compression fracture. Presented today for elective kyphoplasty. Tolerated procedure well however in postop had an aspiration event . Had not eaten since 6:00 last night but still threw up solid chunks of food. Aspirated causing acute respiratory failure. Was intubated emergently in PACU for airway protection and due to hypoxia. Necessitating admission to ICU for further management. Pulmonology consulted to assist with care Reviewed history with . Patient does not have significant history of diabetes, kidney disease, lung disease, cancer. Would like her to be full code. Was doing well other than her back pain prior to today. Last ate at 6 PM night before presentation Chest x-ray: IMPRESSION: 1. Limited due to patient rotation. 2. Medical devices as above. 3. Nonspecific findings, however can be seen in multifocal infection with parapneumonic effusion, volume overload/CHF. Correlate clinically Pt/Caregiver Concerns No concerns Rehab Services Assessed Speech therapy Is this evaluation r/t stroke? No Therapy History Seen by other SL therapists No General Information General Current Food Consistancy NPO Dentition Good Dentition Oxygen Status Nasal Cannula Patient Orientation Person,Place,Time,Situation Ability to Follow Directions Excellent Communication Ability No Impairment Dysphagia:Food Presentation Evaluation Food Type Pureed,Mechanical Soft,Regular ,Liquid,Pudding Dysphagia Evaluation Mechanical Soft Residual on tongue Food Behavior Response Dysphagia Evaluation Regular Food Residual on tongue Behavior Response Dysphagia Evaluation Summary A clinical bedside swallow evaluation was administered this morning with pt sitting upright in chair, utilizing nasal cannula, and with good dentition. Pt had no complaints of difficulty swallowing before surgery. SCOWMAN administered extensive oral care before beginning CSE. Consistencies presented include ice chips, thin liquid (water) via cup and straw, pudding, puree (applesauce), mechanical soft (Nutrigrain bar), and regular (heriberto cracker). All bolus presentations were administered x2 to assess for consistency and fatigue. No overt s/sx were exhibited on any trials presented. Pt exhibited throat clears on consecutive swallow of thin liquid from cup and straw. Pt was observed to adequately masticate and manipulate bolus during mechanical soft and thin liquid trials. Lingual residue was observed on mechanical soft and regular food trials, which were cleared with a liquid wash. SCOWMAN recommends regular/thin liquid diet w/ aspiration precautions including no straws, alternating bites/sips , small bites/sips, and sitting upright 30-60 mins after meals. SCOWMAN will f/u for diet tolerance. Stroke Dysphagia Assessment PHYSICIAN CERTIFICATION: I certify the specified therapy services for Sarah Scovell are required, authorized, and reviewed every 30 days.
--- NOTE | 2024-10-20 11:23 | PC.NURSE ---
pt is 85% on room air while at rest
[2024-10-20] MEDS: CEFTRIAXONE SODIUM 2 GM in 0.9 % SODIUM CHLORIDE 100 ML IV (11:56)
[2024-10-20] MEDS: PANTOPRAZOLE 40MG TABLET 40 MG PO (20:13)
[2024-10-20] MEDS: IRBESARTAN 75MG TABLET 75 MG PO (20:13)
[2024-10-20] MEDS: ATORVASTATIN 40MG TABLET 80 MG PO (20:13)
--- NOTE | 2024-10-20 21:03 | P.PN_ITS ---
Subjective *Date: 10/21/24 *Time: 00:22 Interval history: Patient stable on 2 L. Working with therapy today. Evaluated by speech, okay to advance diet to regular diet with thin liquids. Using aspiration precautions. Afebrile. White count improving. [place] out today. Able to walk 25 steps with a walker. Medical Exam Vital signs and Labs for Last 24 Hours: Vital Signs Temp Pulse Pulse Resp BP BP Pulse Ox 10/20/24 20:00 98.3 F 76 18 155/56 H 95 10/20/24 18:55 10/20/24 17:00 10/20/24 16:00 98.2 F 89 20 142/59 H 91 L 10/20/24 16:00 90 10/20/24 15:00 10/20/24 13:01 64 10/20/24 13:01 68 10/20/24 13:00 10/20/24 12:00 80 10/20/24 12:00 98.0 F 71 18 159/64 H 95 10/20/24 11:22 85 L 10/20/24 11:00 10/20/24 10:44 10/20/24 10:00 79 93 L 10/20/24 09:25 10/20/24 09:00 10/20/24 08:00 90 10/20/24 08:00 90 L 10/20/24 08:00 98.2 F 10/20/24 08:00 82 153/66 H 90 L 10/20/24 06:39 10/20/24 06:19 75 10/20/24 06:19 78 10/20/24 06:19 94 L 10/20/24 06:00 67 22 149/68 H 96 10/20/24 04:56 10/20/24 04:00 98.0 F 10/20/24 04:00 80 10/20/24 04:00 95 10/20/24 04:00 73 21 157/49 H 95 10/20/24 03:00 10/20/24 02:00 80 22 174/92 H 91 L 10/20/24 01:00 10/20/24 00:00 80 10/20/24 00:00 97.6 F 10/20/24 00:00 81 20 162/65 H 93 L 10/19/24 23:09 79 10/19/24 23:09 84 10/19/24 23:09 95 10/19/24 23:00 10/19/24 22:00 72 20 180/89 H 98 O2 Del Method O2 Flow Rate 10/20/24 20:00 Nasal Cannula 2 10/20/24 18:55 Nasal Cannula 2 10/20/24 17:00 Nasal Cannula 2 10/20/24 16:00 Nasal Cannula 2 10/20/24 16:00 10/20/24 15:00 Nasal Cannula 2 10/20/24 13:01 10/20/24 13:01 10/20/24 13:00 Nasal Cannula 2 10/20/24 12:00 10/20/24 12:00 Nasal Cannula 2 10/20/24 11:22 Room Air 10/20/24 11:00 Nasal Cannula 2 10/20/24 10:44 Nasal Cannula 10/20/24 10:00 Nasal Cannula 2 10/20/24 09:25 Nasal Cannula 2 10/20/24 09:00 Nasal Cannula 2 10/20/24 08:00 10/20/24 08:00 Nasal Cannula 2 10/20/24 08:00 10/20/24 08:00 Nasal Cannula 2 10/20/24 06:39 Nasal Cannula 2 10/20/24 06:19 10/20/24 06:19 10/20/24 06:19 Nasal Cannula 2 10/20/24 06:00 Nasal Cannula 2 10/20/24 04:56 Nasal Cannula 2 10/20/24 04:00 10/20/24 04:00 10/20/24 04:00 Nasal Cannula 2 10/20/24 04:00 Nasal Cannula 2 10/20/24 03:00 Nasal Cannula 2 10/20/24 02:00 Nasal Cannula 2 10/20/24 01:00 Nasal Cannula 2 10/20/24 00:00 10/20/24 00:00 10/20/24 00:00 Nasal Cannula 2 10/19/24 23:09 10/19/24 23:09 10/19/24 23:09 Nasal Cannula 2 10/19/24 23:00 Nasal Cannula 2 10/19/24 22:00 Nasal Cannula 2 Intake and Output 10/20/24 10/20/24 10/20/24 07:59 15:59 23:59 Intake Total 250 / 790 240 / 790 300 / 790 Output Total 900 / 900 0 / 900 Balance -650 / -110 240 / -110 300 / -110 Intake: Intake, Oral Amount 240 / 540 300 / 540 Intake, Total IV Amount 250 / 250 Doxycycline Hyclate 100 mg In 0 250 / 250 .9 % Sodium Chloride 250 ml @ 166.667 mls/hr IV Q12H [facility] Rx#: [id number] Output: Output, Urine Amount 900 / 900 0 / 900 Other: Number of Unmeasured Voids 0 1 Number of Bowel Movements 1 Weight 62.188 kg Patient Weight 10/20/24 23:59 Weight 62.188 kg Laboratory Results - last 24 hr 10/17/24 12:00: BAL Total Cell Count See comment 10/20/24 05:49: WBC 10.7, RBC 3.61 L, Hgb 10.3 L D, Hct 31.1 L, MCV 86.1, MCH 28.5, MCHC 33.1, RDW 12.6, Plt Count 158, MPV 10.8 H, Neut % (Auto) 78.3, Lymph % (Auto) 11.2, [place] % (Auto) 8.3, Eos % (Auto) 1.0, Baso % (Auto) 0.5, Neut # (Auto) 8.4 H, Lymph # (Auto) 1.2, [place] # (Auto) 0.9, Eos # (Auto) 0.1, Baso # (Auto) 0.1, Sodium 144, Potassium 3.4 L, Chloride 112 H, Carbon Dioxide 27, Anion Gap 8.4, BUN 17, Creatinine 0.40 L, Estimated Creat Clear 48, Estimated GFR 154, Est GFR ( Amer) 186 D, Glucose 96, Calcium 8.6, Magnesium 1.9, Total Bilirubin 1.6 H, AST 47 H, ALT 35, Alkaline Phosphatase 89, Total Protein 5.8 L, Albumin 3.0 L D, Globulin 2.8, Albumin/Globulin Ratio 1.1 I & O for Labs for Last 24 Hours: Intake & Output 10/17/24 10/18/24 10/19/24 10/20/24 23:59 23:59 23:59 23:59 Intake Total 1971.959 / 1971.959 605.646 / 855.646 250 / 500 790 / 790 Output Total 620 / 620 985 / 985 650 / 650 900 / 900 Balance 1351.959 / 1351.959 -379.354 / -129.354 -400 / -150 -110 / -110 Weight 64.6 kg 65.034 kg 67.132 kg 62.188 kg Constitutional: Present no acute distress, chronically ill appearing and cooperative Head: Present atraumatic and normocephalic Comment:: Alopecia Neck: Present trachea midline Respiratory: Present rhonchi and normal respiratory effort; Absent wheezes or crackles Cardiac: Present Reg Rate and Rhythm GI: Present soft and normal bowel sounds; Absent distention or tenderness Extremities: Present normal inspection and full ROM Skin: Present intact; Absent erythema Neuro: Present Grossly Intact, alert, awake, oriented x 3 and moves all extremities Assessment and Plan *Assessment and plan (1) Pneumonia: Status: Acute Category: Medical Code(s): J18.9 - Pneumonia, unspecified organism (2) Acute hypoxemic respiratory failure: Status: Acute Category: Medical Code(s): J96.01 - Acute respiratory failure with hypoxia (3) On mechanically assisted ventilation: Status: Acute Category: Medical Code(s): Z99.11 - Dependence on respirator [ventilator] status (4) Compression fracture of L1 lumbar vertebra: Status: Acute Category: Medical Code(s): S32.010A - Wedge compression fracture of first lumbar vertebra, initial encounter for closed fracture (5) CAD (coronary artery disease): Status: Chronic Qualifiers: Coronary Disease-Associated Artery/Lesion type: [place] artery [place] vs. transplanted heart: [place] heart Associated angina: without angina Qualified Code(s): I25.10 - Atherosclerotic heart disease of [place] coronary artery without angina pectoris Category: Medical Code(s): I25.10 - Atherosclerotic heart disease of [place] coronary artery without angina pectoris (6) HTN (hypertension): Status: Chronic Qualifiers: Hypertension type: essential hypertension Qualified Code(s): I10 - Essential (primary) hypertension Category: Medical Code(s): I10 - Essential (primary) hypertension (7) HLD (hyperlipidemia): Status: Chronic Qualifiers: Hyperlipidemia type: mixed hyperlipidemia Qualified Code(s): E78.2 - Mixed hyperlipidemia Category: Medical Code(s): E78.5 - Hyperlipidemia, unspecified (8) Gastroesophageal reflux disease: Status: Chronic Qualifiers: Esophagitis presence: without esophagitis Qualified Code(s): K21.9 - Gastro-esophageal reflux disease without esophagitis Category: Medical Code(s): K21.9 - Gastro-esophageal reflux disease without esophagitis (9) Abnormal electrocardiogram [ECG] [EKG]: Status: Acute Category: Medical Code(s): R94.31 - Abnormal electrocardiogram [ECG] [EKG] Plan 79-year-old female who presented for kyphoplasty. Had aspiration event in PACU. Necessitated intubation. Pulmonology consulted to assist with care. Discussed case with pain management physician, request admission to ICU for further management. I agreed to admit for further care. Patient did well on ventilator. Extubated yesterday 10/19. Stable on 2 L oxygen. PT/OT/Speech today. Continue treatment for pneumonia. Problems addressed as follows: Acute respiratory failure due to aspiration Aspiration pneumonia/pneumonitis - Pulmonology consulted, Patient overall doing well. Discussed case with pulmonology, recommend continuing ceftriaxone and azithromycin. Wean to cefdinir at discharge to complete a total of 7 days. - Continue supplemental oxygen as needed for goal sats greater than 90%. Currently on 2 L. -White count 10.7. Hemoglobin 10.3. Repeat CBC, CMP, magnesium ordered for the morning. -PT, OT, speech consulted. Working with therapy. Stable to go home with home health. concerned. Would like to evaluate for possible placement as their insurance allows this option. Case management to refer to [place]. Hypertension: - Irbesartan 150 mg in the morning, 75 mg at night, metoprolol succinate 25 mg daily. Showing improvement in blood pressure. Denies chest discomfort. - Cardiology consulted due to patient having elevated troponin over the weekend. Likely due to stress of her acute event. Troponin stable at 0.04. EKG shows chronic left bundle branch block. No chest pain. -Per discussion with cardiology, recommends echo if no changes follow-up as an outpatient for further ischemic eval. Continue aspirin 81 mg daily and Lipitor 40 mg daily. -Kidney function normal with BUN 17, creatinine 0.4. Depression/mood: resume home Wellbutrin, gabapentin, Citalopram Protonix 40 mg IV daily for GI prophylaxis Lovenox 40 mg subcu daily for DVT prophylaxis Full code Regular diet
[2024-10-21] VITALS: BP 141/62; PULSE 74; RESP 18; TEMP 36.4; O2SAT 95
[2024-10-21 04:00] VITALS: BP 155/74; PULSE 78; RESP 18; TEMP 36.4; O2SAT 94; BMI 27.9
--- NOTE | 2024-10-21 04:38 | PC.NURSE ---
Patient is alert and oriented x4. She was observed to have wakeful periods and resting periods (eyes closed, respirations even and unlabored on 2 L via nasal cannula) throughout the night. Patient has been having a loose, productive cough this shift. Suction is on at the bedside; patient has been using the suction whenever expelling sputum. Sputum appearance thin, mucoid, and white this shift. Upon auscultation of her lungs, expiratory rhonchi and wheezing could be heard bilaterally. Auscultation of her heart and bowels were within normal findings. Alopecia of the patient noted. Patient has required x2 assistance during ambulation/transfer to the bedside commode this shift. Although weak and easily exerted, patient tolerates ambulation fairly. She has been self-turning in bed. A full bed bath was given during this shift. Urine appearance was noted to be cassie in color. Patient requested SCDs to remain off this shift. She has been drinking ice water and lemonade at the bedside. Blood pressures have been slightly elevated this shift; other vital signs have remained stable, oxygen saturations > 90%. Scheduled medications were administered as appropriately per DEC. At this time, the patient is resting in bed without any further complaints. No acute changes noted thus far. Call light within reach.
--- NOTE | 2024-10-21 06:00 | XR_ITS ---
PROCEDURE INFORMATION: Exam: XR Chest Exam date and time: 10/21/2024 5:58 AM Age: 79 years old Clinical indication: Shortness of breath; Additional info: Pneumonia mechanical ventilation TECHNIQUE: Imaging protocol: Radiologic exam of the chest. Views: 1 view. COMPARISON: CR XR CHEST PORTABLE 10/20/2024 11:35 AM FINDINGS: Lungs: Ill-defined patchy airspace opacities bilaterally without focal consolidation. Pleural spaces: Unremarkable. No pleural effusion. No pneumothorax. Heart/Mediastinum: No acute change of the mediastinum. Bones/joints: Diffuse degenerative change of the visualized osseous structures. IMPRESSION: Stable examination from 10/20/2024.
[2024-10-21 06:10] VITALS: PULSE 66; PULSE 70; O2SAT 92
[2024-10-21] MEDS: IPRATROPIUM/ALBUTEROL 3 ML NEB IH ×2 (06:10→13:17)
[2024-10-21 07:08] LABS: Basophils % 0.3 % (0.1-2.0); Eosinophils # 0.2 K/mm3 (0.0-0.4); Hematocrit 31.1 % (37.0-47.0); Hemoglobin 10.7 g/dL (12.2-16.2); Lymphocytes # 1.9 K/mm3 (0.7-4.5); Lymphocytes % 19.6 % (10-50); Mean Corpuscular HGB Conc 34.4 g/dL (31.8-35.4); Mean Corpuscular Hemoglobin 29.3 pg (27.0-31.2); Mean Corpuscular Volume 85.2 fl (81-99); Mean Platelet Volume 10.9 fl (7.4-10.4); Monocytes % 10.5 % (1.7-9.3); Neutrophils # 6.4 K/mm3 (1.8-7.8); Neutrophils % 66.8 % (37.0-80.0); Platelet Count 168 K/mm3 (142-424); Red Blood Count 3.65 M/mm3 (4.20-5.40); Red Cell Distribution Width 12.5 % (11.5-17.5); White Blood Count 9.6 K/mm3 (4.8-10.8)
[2024-10-21 07:16] LABS: Alanine Aminotransferase 36 U/L (12-78); Albumin Level 3.1 g/dl (3.5-5.0); Albumin/Globulin Ratio 1.1 (1.1-1.8); Alkaline Phosphatase 88 U/L (38-126); Anion Gap 8.1 mEq/L (5-15); Aspartate Amino Transferase 47 U/L (14-36); Bilirubin,Total 1.5 mg/dl (0.2-1.3); Blood Urea Nitrogen 15 mg/dl (7-17); Calcium 8.8 mg/dl (8.4-10.2); Carbon Dioxide 29 mmol/L (22.0-30.0); Chloride 108 mmol/L (98-107); Creatinine Clearance Estimated 47 mL/min (50-200); Estimated Glomerular Filt Rate 154 ml/min (>60); GFR (African American) 186 ML/MIN (>60); Globulin 2.8 g/dL (1.3-3.2); Glucose 96 mg/dl (74-100); Potassium 3.1 mmoL/L (3.5-5.1); Sodium 142 mmol/L (136-145); Total Protein,Serum 5.9 g/dl (6.3-8.2)
--- NOTE | 2024-10-21 07:28 | EXP.DC.SUM ---
General Admission date:: 10/17/24 Discharge date: 10/21/24 HPI HPI HPI: Mrs. Hansen is a 79-year-old female with history of L1 compression fracture. Presented today for elective kyphoplasty. Tolerated procedure well however in postop had an aspiration event. Had not eaten since 6:00 last night but still threw up solid chunks of food. Aspirated causing acute respiratory failure. Was intubated emergently in PACU for airway protection and due to hypoxia. Necessitating admission to ICU for further management. Pulmonology consulted to assist with care Reviewed history with . Patient does not have significant history of diabetes, kidney disease, lung disease, cancer. Would like her to be full code. Was doing well other than her back pain prior to today. Last ate at 6 PM night before presentation Hospital Course Hospital Course Hospital Course: 79-year-old female who presented for kyphoplasty. Had aspiration event in PACU. Necessitated intubation. Pulmonology consulted to assist with care. Discussed case with pain management physician, request admission to ICU for further management. I agreed to admit for further care. Patient did well on ventilator. Intubated on 10/18, extubated the following morning on 10/19 after tolerating SBT. Weaned to 2 L nasal cannula oxygen. Stable on 2 L for 48 hours prior to discharge. Evaluated by therapy including PT, OT, speech. Recommend aspiration precautions but recommended regular diet with thin liquids. PT and OT recommended home health. Stable to discharge home with . Problems addressed as follows: Acute respiratory failure due to aspiration Aspiration pneumonia/pneumonitis -Presented with respiratory failure necessitating intubation due to aspiration event after L1 kyphoplasty. Pulmonology was consulted, patient was initiated on ceftriaxone and azithromycin. Taken for bronchoscopy after her aspiration event on Sunday. Significant irritation of airways with mucus. Weaned rather quickly on ventilator and able to extubate to nasal cannula. Continued supplemental oxygen. On morning of discharge patient was saturating 86% on room air at rest. Necessitating 2 L supplemental oxygen continuously via nasal cannula at discharge. Antibiotics weaned to cefdinir 300 mg twice daily to complete antibiotic course for 7 days total of therapy. White count had normalized to 9.6. Hemoglobin 10.7. PT, OT, speech consulted. Working with therapy daily. Stable to go home with home health. concerned, had extensive discussion with him. Patient was evaluated/referred to [facility]. Patient decided she was comfortable going home with her and home health. Hypertension: -After extubation, patient became more hypertensive. Initiated on regimen of irbesartan, metoprolol. Had some improvement in blood pressure. Cardiology was consulted as patient had slight elevation of her troponin over the weekend at 0.04. EKG shows chronic left bundle branch block. No chest pain. Cardiology consulted, recommended echo. Did not show any wall motion abnormalities. Recommend following up as an outpatient for further ischemic evaluation. Recommend continuing aspirin 81 mg daily and Lipitor daily. Kidney functions remain normal on day of discharge BUN 15, creatinine 0.4. Depression/mood: Continue home Wellbutrin, gabapentin, Citalopram Total time spent on discharge 32 minutes in counseling, documentation, chart review, and direct care with patient. Exam Data for Last 24 hours Vital signs and Labs for Last 24 Hours: Temp Pulse Resp BP Pulse Ox O2 Del Method O2 Flow Rate 97.6 F 66 18 155/74 H 92 L Nasal Cannula 2 10/21/24 04:00 10/21/24 06:10 10/21/24 04:00 10/21/24 04:00 10/21/24 06:10 10/21/24 06:35 10/21/24 06:35 FiO2 28 10/19/24 19:32 Laboratory Results - last 24 hr 10/17/24 12:00: BAL Total Cell Count See comment 10/21/24 06:32: Sodium 142, Potassium 3.1 L, Chloride 108 H, Carbon Dioxide 29, Anion Gap 8.1, BUN 15, Creatinine 0.40 L, Estimated Creat Clear 47, Estimated GFR 154, Est GFR ( Amer) 186, Glucose 96, Calcium 8.8, Total Bilirubin 1.5 H, AST 47 H, ALT 36, Alkaline Phosphatase 88, Total Protein 5.9 L, Albumin 3.1 L, Globulin 2.8, Albumin/Globulin Ratio 1.1 I & O for Last 24 hours: Intake & Output 10/18/24 10/19/24 10/20/24 10/21/24 23:59 23:59 23:59 23:59 Intake Total 605.646 / 855.646 250 / 500 790 / 1160 370 / 370 Output Total 985 / 985 650 / 650 900 / 900 0 / 0 Balance -379.354 / -129.354 -400 / -150 -110 / 260 370 / 370 Weight 65.034 kg 67.132 kg 62.188 kg 64.637 kg Constitutional Constitutional: no acute distress, average body habitus, chronically ill appearing and cooperative *Routine HEENT Exam Head: Present normocephalic Eye: Present EOMI and PERRL ENT: Present mucous membranes moist Comments: alopecia *Routine Neck Exam Neck: Present supple; Absent lymphadenopathy *Routine Respiratory Exam Respiratory: Present rhonchi, crackles and normal respiratory effort; Absent wheezes *Routine Cardiovascular Exam Cardiovascular: Present RRR *Routine Abdominal Exam Abdominal: Present soft and normoactive bowel sounds; Absent tenderness *Routine Rectal Exam Patient deferred: visual exam *Routine Exam Patient deferred: external exam *Routine Extremities Exam Extremities: Present edema (trace BLE); Absent cyanosis or clubbing *Routine Skin Exam Skin: Present intact and warm; Absent rash *Routine Neurological Exam Neurological: Present alert, oriented X3 and moving all extremities; Absent altered mental status Results Data Completed and Pending Labs on day of discharge: Labs from last 24 hours 10/21/24 10/17/24 06:32 12:00 Sodium 142 Potassium 3.1 L Chloride 108 H Carbon Dioxide 29 Anion Gap 8.1 BUN 15 Creatinine 0.40 L Estimated Creat Clear 47 Estimated GFR 154 Est GFR ( Amer) 186 Glucose 96 Calcium 8.8 Total Bilirubin 1.5 H AST 47 H ALT 36 Alkaline Phosphatase 88 Total Protein 5.9 L Albumin 3.1 L Globulin 2.8 Albumin/Globulin Ratio 1.1 BAL Total Cell Count See comment DS: Diagnosis Discharge Diagnosis (1) Pneumonia: Status: Acute Code(s): J18.9 - Pneumonia, unspecified organism (2) Acute hypoxemic respiratory failure: Status: Acute Code(s): J96.01 - Acute respiratory failure with hypoxia (3) On mechanically assisted ventilation: Status: Acute Code(s): Z99.11 - Dependence on respirator [ventilator] status (4) Compression fracture of L1 lumbar vertebra: Status: Acute Code(s): S32.010A - Wedge compression fracture of first lumbar vertebra, initial encounter for closed fracture (5) CAD (coronary artery disease): Status: Chronic Code(s): I25.10 - Atherosclerotic heart disease of [place] coronary artery without angina pectoris Qualifiers: Associated angina: without angina Coronary Disease-Associated Artery/Lesion type: [place] artery [place] vs. transplanted heart: [place] heart Qualified Code(s): I25.10 - Atherosclerotic heart disease of [place] coronary artery without angina pectoris (6) HTN (hypertension): Status: Chronic Code(s): I10 - Essential (primary) hypertension Qualifiers: Hypertension type: essential hypertension Qualified Code(s): I10 - Essential (primary) hypertension (7) HLD (hyperlipidemia): Status: Chronic Code(s): E78.5 - Hyperlipidemia, unspecified Qualifiers: Hyperlipidemia type: mixed hyperlipidemia Qualified Code(s): E78.2 - Mixed hyperlipidemia (8) Gastroesophageal reflux disease: Status: Chronic Code(s): K21.9 - Gastro-esophageal reflux disease without esophagitis Qualifiers: Esophagitis presence: without esophagitis Qualified Code(s): K21.9 - Gastro-esophageal reflux disease without esophagitis (9) Abnormal electrocardiogram [ECG] [EKG]: Status: Acute Code(s): R94.31 - Abnormal electrocardiogram [ECG] [EKG] Meds Home Medications and Allergies Home Medications ?Medication ?Instructions ?Recorded ?Confirmed ?Type aspirin 81 mg tablet,delayed 81 mg PO DAILY 04/22/18 10/15/24 History release iumhtuna-alvp-odqi 8 mg-folic 400 1 tab PO DAILY supplement 09/17/20 10/15/24 History mcg-K 50 mcg-lutein 300 mcg tablet (Centrum Silver Women) hydrocortisone 2.5 % topical cream 1 applic topical DIRECTED Skin 10/31/21 10/15/24 History Condition gabapentin 100 mg capsule 100 mg PO BIDP PRN nerve pain 05/15/23 10/17/24 History metoprolol succinate 25 mg 25 mg PO DAILY #90 tabs 12/10/23 10/15/24 Rx tablet,extended release 24 hr cholecalciferol (vitamin D3) 75 3,000 unit PO DAILY 03/11/24 10/17/24 History mcg (3,000 unit) tablet bupropion HCl 150 mg tablet,12 hr 150 mg PO DAILY #90 ea 08/12/24 10/15/24 Rx sustained-release omeprazole 20 mg capsule,delayed 20 mg PO DAILY #30 caps 09/11/24 10/15/24 Rx release citalopram 20 mg tablet 20 mg PO DAILY 10/17/24 10/17/24 History losartan 100 mg tablet 100 mg PO DAILY 10/17/24 10/17/24 History atorvastatin 80 mg tablet 80 mg PO HS #30 tabs 10/21/24 Rx cefdinir 300 mg capsule 300 mg PO BID 2 days #4 caps 10/21/24 Rx oxycodone-acetaminophen 7.5 mg-325 1 tab PO Q6HP PRN Moderate Pain 10/21/24 Rx mg tablet (4-6) 3 days #11 tabs New Prescriptions to Start Prescriptions: cleo Purdy,Justino cefdinir Gurwinder,Justino oxycodone-acetaminophen Justino Purdy Allergies Allergy/AdvReac Type Severity Reaction Status Date / Time morphine Allergy Unknown Verified 10/15/24 13:55 allergy reaction propoxyphene (From Darvon) Allergy Unknown Verified 10/15/24 13:55 allergy reaction thimerosal (From Merthiolate Allergy Unknown Verified 10/15/24 13:55 (thimerosal)) allergy reaction Discharge Plan Disposition Patient Disposition: Home Health Service Condition: Fair Discharge Order Discharge Orders: Discharge Order (Routine); Ordered 10/21/24 Ordered By: Justino Purdy Follow up Plan Follow up with: Jeancarlos Santizo MD [Primary Care Provider] - 10/28/24 1:00 pm Nella Martinez MD [Physician] - 10/29/24 1:00 pm Prescriptions/Medication Reconciliation: New atorvastatin 80 mg tablet 80 mg PO HS Qty: 30 0RF oxycodone-acetaminophen 7.5-325 mg Tablet 1 tab PO Q6HP PRN (Reason: Moderate Pain (4-6)) 3 Days Qty: 11 0RF cefdinir 300 mg capsule 300 mg PO BID 2 Days Qty: 4 0RF Continued cholecalciferol (vitamin D3) 75 mcg (3,000 unit) tablet 3,000 unit PO DAILY Centrum Silver Women 8 mg iron-400 mcg-300 mcg tablet 1 tab PO DAILY gabapentin 100 mg capsule 100 mg PO BIDP PRN (Reason: nerve pain) hydrocortisone 2.5 % cream 1 applic TOPICAL DIRECTED metoprolol succinate 25 mg tablet extended release 24 hr 25 mg PO DAILY Qty: 90 3RF bupropion HCl 150 mg tablet sustained-release 12 hr 150 mg PO DAILY Qty: 90 1RF omeprazole 20 mg capsule,delayed release(DR/EC) 20 mg PO DAILY Qty: 30 3RF aspirin 81 MG tablet,delayed release (DR/EC) 81 mg PO DAILY citalopram 20 mg tablet 20 mg PO DAILY losartan 100 mg tablet 100 mg PO DAILY Discontinued atorvastatin 40 mg tablet 40 mg PO HS Other Ambulatory Orders: Home Medical Equipment (Routine) Location: None Selected Ordered By: Justino Purdy Problem Reconciliation Problems Reviewed?: Yes Patient Discharge Instructions ACTIVITY: Continue current activity DIET: continue same diet Patient Instructions: DI for Aspiration Pneumonia, DI for Surgical Site Infection, Ventilator-Associated Pneumonia, Catheter-Associated Urinary Tract Infection, Kyphoplasty Print Language: [place] Providers Primary Care Provider: Jeancarlos Santizo Admit Provider: Miguelito Alonzo Attending Provider: Justino Purdy
[2024-10-21 08:00] VITALS: BP 156/60; PULSE 87; RESP 19; TEMP 36.8; O2SAT 91
[2024-10-21 08:01] LABS: Magnesium 1.9 mg/dl (1.6-2.3)
[2024-10-21] MEDS: buPROPion HCl SR 150MG TAB 150 MG PO (08:33)
[2024-10-21] MEDS: ASPIRIN EC 81MG TABLET 81 MG PO (08:33)
[2024-10-21] MEDS: IRBESARTAN 150MG TAB 150 MG PO (08:34)
[2024-10-21] MEDS: CITALOPRAM 20MG TABLET 20 MG PO (08:34)
[2024-10-21] MEDS: ENOXAPARIN 40MG/0.4ML SYRINGE 40 MG SUBCUT (08:34)
[2024-10-21] MEDS: METOPROLOL SUCCINATE XL 25MG TABLET 25 MG PO (08:34)
[2024-10-21] MEDS: POTASSIUM CHLORIDE 20MEQ TAB 40 MEQ PO (08:34)
[2024-10-21 09:00] VITALS: O2SAT 91
--- NOTE | 2024-10-21 09:41 | P.PN_ITS ---
Subjective *Date: 10/21/24 *Time: 12:11 Interval history: No acute respiratory vents overnight. Stable oxygen requirements. Patient admits improving respiratory symptoms. Improving cough with scant productive phlegm. Pulmonology Exam Inpatient Vital signs and Labs for Last 24 Hours: Temp Pulse Resp BP Pulse Ox O2 Del Method O2 Flow Rate 98.2 F 87 19 156/60 H 91 L Nasal Cannula 2 10/21/24 08:00 10/21/24 08:00 10/21/24 08:00 10/21/24 08:00 10/21/24 09:00 10/21/24 09:00 10/21/24 09:00 FiO2 28 10/19/24 19:32 Laboratory Results - last 24 hr 10/17/24 12:00: BAL Total Cell Count See comment 10/21/24 06:32: WBC 9.6, RBC 3.65 L, Hgb 10.7 L, Hct 31.1 L, MCV 85.2, MCH 29.3, MCHC 34.4, RDW 12.5, Plt Count 168, MPV 10.9 H, Neut % (Auto) 66.8, Lymph % (Auto) 19.6, [place] % (Auto) 10.5 H, Eos % (Auto) 2.0, Baso % (Auto) 0.3, Neut # (Auto) 6.4, Lymph # (Auto) 1.9, [place] # (Auto) 1.0, Eos # (Auto) 0.2, Baso # (Auto) 0.0, Sodium 142, Potassium 3.1 L, Chloride 108 H, Carbon Dioxide 29, Anion Gap 8.1, BUN 15, Creatinine 0.40 L, Estimated Creat Clear 47, Estimated GFR 154, Est GFR ( Amer) 186, Glucose 96, Calcium 8.8, Magnesium 1.9, Total Bilirubin 1.5 H, AST 47 H, ALT 36, Alkaline Phosphatase 88, Total Protein 5.9 L, Albumin 3.1 L, Globulin 2.8, Albumin/Globulin Ratio 1.1 Temp Pulse Resp BP Pulse Ox O2 Del Method O2 Flow Rate 96.9 F L 83 18 146/72 H 98 Mechanical Ventilation 10 10/17/24 10:32 10/17/24 09:50 10/17/24 10:00 10/17/24 09:50 10/17/24 09:50 10/17/24 09:50 10/17/24 09:50 FiO2 100 10/17/24 10:00 Laboratory Results - last 24 hr 10/17/24 09:55: Specimen Source Left radial, O2 % 100, ABG pH 7.37, ABG pCO2 40.5, ABG pO2 76.7 L, ABG HCO3 22.8, ABG Total CO2 24.0, ABG O2 Saturation 95, ABG Base Excess -2.5 L, Rory Test Patient unable, Vent Rate 18, Tidal Volume 400, PEEP 5 10/17/24 10:10: WBC 7.5, RBC 4.62, Hgb 13.8, Hct 39.7, MCV 85.9, MCH 29.9, MCHC 34.8, RDW 12.9, Plt Count 222, MPV 10.5 H, Neut % (Auto) 62.0, Lymph % (Auto) 28.8, [place] % (Auto) 5.4, Eos % (Auto) 1.9, Baso % (Auto) 0.8, Neut # (Auto) 4.7, Lymph # (Auto) 2.2, [place] # (Auto) 0.4, Eos # (Auto) 0.1, Baso # (Auto) 0.1, Sodium 136, Potassium 5.6 H, Chloride 108 H, Carbon Dioxide 24, Anion Gap 9.6, BUN 14, Creatinine 0.50 L, Estimated Creat Clear 42, Estimated GFR 119, Est GFR ( Amer) 144, Glucose 114 H, Calcium 8.7, Magnesium 1.8, Total Bilirubin 1.5 H, AST 102 H, ALT 66, Alkaline Phosphatase 91, Total Protein 7.3, Albumin 4.2, Globulin 3.1, Albumin/Globulin Ratio 1.4 I & O for Labs for Last 24 Hours: Intake & Output 10/18/24 10/19/24 10/20/24 10/21/24 23:59 23:59 23:59 23:59 Intake Total 605.646 / 855.646 250 / 500 790 / 1160 620 / 620 Output Total 985 / 985 650 / 650 900 / 900 0 / 0 Balance -379.354 / -129.354 -400 / -150 -110 / 260 620 / 620 Weight 143 lb 6 oz 148 lb 137 lb 1.6 oz 142 lb 8 oz Intake & Output 10/14/24 10/15/24 10/16/24 10/17/24 23:59 23:59 23:59 23:59 Intake Total 903.006 / 903.006 Balance 903.006 / 903.006 Weight 130 lb 142 lb 7 oz Constitutional: Present moderate distress Comment:: Intubated and Sedated Head: Present normocephalic and atraumatic Neck: Present normal inspection and trachea midline Respiratory: Present rhonchi and able to speak in complete sentences; Absent wheezes Cardiac: Present S1/S2 and Tachycardia GI: Present soft; Absent distention or tenderness Skin: Present intact; Absent cyanosis Neuro: Present alert, awake and oriented x 3 Extremities: Present normal inspection; Absent clubbing or cyanosis Psychiatric: Present normal affect and cooperative Assessment and Plan *Assessment and plan (1) On mechanically assisted ventilation: Status: Acute Category: Medical Code(s): Z99.11 - Dependence on respirator [ventilator] status (2) Acute hypoxemic respiratory failure: Status: Acute Category: Medical Code(s): J96.01 - Acute respiratory failure with hypoxia (3) Pneumonia: Status: Acute Category: Medical Code(s): J18.9 - Pneumonia, unspecified organism Plan Ms. Hansen presented for an outpatient elective kyphoplasty procedure experienced aspiration event following hypoxic respiratory failure needing intubation and mechanical ventilatory support and pulmonary was called for further evaluation and management. On admission no evidence of leukocytosis. ABG did not show any evidence of hypoxic/hypercarbic respiratory failure while receiving 100% FiO2. Status post bronchoscopy no obvious foreign body aspiration noted. His airway erythema noted. Comprehensive respiratory viral PCR panel. Respiratory status status postextubation. Tolerating well on nasal cannula so far. Continue to receive ceftriaxone azithromycin. BAL cultures no growth so far. Interval weight: Chest x-ray bilateral infiltrates worsening from yesterday. Clinically stable with stable oxygen requirements. Continue to receive ceftriaxone azithromycin. Improving leukocytosis. Admits improving respiratory symptoms. Improving cough with scant productive phlegm. Plan: -Room air saturations of 86%. Continue oxygen supplementation at 2 L at rest to maintain O2 saturation goal of 90% and above. 6-minute walk testing prior to discharge. -Antibiotics can be weaned to cefdinir to complete a total of 7-day course -Continue oxygen supplementation to maintain O2 saturation goal of 90% and above #Will follow the patient in pulmonary clinic in 3 to 4 days postdischarge with a chest x-ray PA lateral prior to clinic visit.
--- NOTE | 2024-10-21 11:18 | PC.NURSE ---
pt Saturation was 86% on RA at rest
[2024-10-21] MEDS: CEFTRIAXONE SODIUM 2 GM in 0.9 % SODIUM CHLORIDE 100 ML IV (11:47)
[2024-10-21] MEDS: DOXYCYCLINE HYCLATE 100 MG in 0.9 % SODIUM CHLORIDE 250 ML 166.667 MG IV (12:16)
[2024-10-21 13:18] VITALS: PULSE 80; PULSE 84; O2SAT 91
--- NOTE | 2024-10-21 13:46 | HMH.PHAINT1 ---
Pharmacy Intervention Comments: COUNSELED PATIENT ON NEW MEDICATIONS PRIOR TO DISCHARGE. PATIENT VERBALIZED UNDERSTANDING.
--- NOTE | 2024-10-22 11:10 | SW/DCPLANNER ---
Spoke with patient on the phone. Patient stated that she is good. Patient stated that she is aware of her upcoming appointments. Patient stated that she was able to pick her medicine up from [facility]. Patient stated that she has no concerns or questions at this time. Amy Enlgish
== END 2024-10-21 14:27 | disposition home health service (06) | DRG 981 ==
LOC: ICU 09:46 → 2ND 10-18 16:43
PROVIDERS: Internal Medicine Pulmonary Disease; Admitting Provider Anesthesiology; PCP Internal Medicine; Visit Provider Internal Medicine Adolescent Medicine
PROC: 0QU00JZ Supplement Lumbar Vertebra with Synthetic Substitute, Open Approach (ICD-10-PCS; principal; 2024-10-17 07:30)
PROC: 0B9D8ZX Drainage of Right Middle Lung Lobe, Via Natural or Artificial Opening Endoscopic, Diagnostic (ICD-10-PCS; principal; 2024-10-17 11:30)
DX: J69.0 Pneumonitis due to inhalation of food and vomit (principal); J96.01 Acute respiratory failure with hypoxia; M80.08XA Age-related osteoporosis with current pathological fracture, vertebra(e), initial encounter for fracture; I25.10 Atherosclerotic heart disease of native coronary artery without angina pectoris; I10 Essential (primary) hypertension; E78.2 Mixed hyperlipidemia; K21.9 Gastro-esophageal reflux disease without esophagitis; R94.31 Abnormal electrocardiogram [ECG] [EKG]; E55.9 Vitamin D deficiency, unspecified; I44.7 Left bundle-branch block, unspecified
CPT/HCPCS: 36415; 71045; 74018; 80053; 81001; 82803; 83735; 84145; 84484; 85025; 86140; 87070; 87081; 87102; 87116; 87186; 87205; 87206; 87633; 89051; 92610; 93005; 93306; 94002; 94640; 94761; 96374; 97162; 97166; 97530; C1713; J0360; J0696; J1100; J1650; J2250; J2405; J2704; J3010; J3370; J7050; J7120; J7620

== ENCOUNTER 2024-10-22 16:40 | Observation (INO) | payer MEDICARE, OTHER, SELFPAY ==
[2024-10-22] VITALS (16 sets, daily range): BP systolic 100–212; BP diastolic 52–151; PULSE 48–108; RESP 18–32; TEMP 36.7–37.1; O2SAT 88–97; BMI 26.2
--- NOTE | 2024-10-22 16:44 | ED_ITS ---
<Statement entered by Sharri Hinds DO - 10/22/24 23:51> I was consulted by the RACHELE, and we discussed the complexity of the problems being addressed. I approved the treatment and management plan for this patient's care in the emergency department, thus performing a substantive portion of the medical decision making. Sharri Hinds DO Discharge Plan Disposition Patient Disposition: Admitted Condition: Serious Prescriptions Prescriptions: No Action cholecalciferol (vitamin D3) 75 mcg (3,000 unit) tablet 3,000 unit PO DAILY Centrum Silver Women 8 mg iron-400 mcg-300 mcg tablet 1 tab PO DAILY gabapentin 100 mg capsule 100 mg PO BIDP PRN (Reason: nerve pain) hydrocortisone 2.5 % cream 1 applic TOPICAL DIRECTED metoprolol succinate 25 mg tablet extended release 24 hr 25 mg PO DAILY Qty: 90 3RF bupropion HCl 150 mg tablet sustained-release 12 hr 150 mg PO DAILY Qty: 90 1RF omeprazole 20 mg capsule,delayed release(DR/EC) 20 mg PO DAILY Qty: 30 3RF aspirin 81 MG tablet,delayed release (DR/EC) 81 mg PO DAILY citalopram 20 mg tablet 20 mg PO DAILY losartan 100 mg tablet 100 mg PO DAILY atorvastatin 80 mg tablet 80 mg PO HS Qty: 30 0RF oxycodone-acetaminophen 7.5-325 mg Tablet 1 tab PO Q6HP PRN (Reason: Moderate Pain (4-6)) 3 Days Qty: 11 0RF cefdinir 300 mg capsule 300 mg PO BID 2 Days Qty: 4 0RF Referrals Follow up/Referrals: Provider,Referral, MD [Referring] - See instructions Clinical Impressions Clinical Impression: Acute respiratory distress syndrome (ARDS), Acute hypoxemic respiratory failure, Aspiration pneumonitis Print Language Print Language: Uzbek Discharge ED Provider: Sharri Hinds General Adult HPI General Chief complaint: Weakness Stated complaint: cant get around Time Seen by Provider: 10/22/24 16:44 History of Present Illness HPI narrative: Patient presents for evaluation of hypoxia. Patient was admitted for an elective kyphoplasty on 10/17/2024 and had a aspiration event in the PACU. She was emergently intubated in the PACU and spent a period of time on the ventilator in the ICU. Ultimately she was extubated and on the day of discharge was satting at 86% on room air at rest. Arrangements were made for home O2 and patient was ultimately discharged home on 10/21/2024. However home health came to visit her today and patient was desatting into the 80s on 2 L by nasal cannula. They subsequently sent her to the ER for further evaluation. Patient herself states that she has no ability to tolerate even light activity without dyspnea. She does not have a home nebulizer machine and was not on oxygen prior to her kyphoplasty. She denies any fever chills hemoptysis hematochezia melena nausea vomiting diarrhea. She denies chest pain. She does have a history of hyperlipidemia coronary artery disease hypertension GERD and history of diastolic dysfunction with a left ventricular ejection fraction 65% mild aortic stenosis and elevated RSVP of 50 to 55 mmHg done during her admission previously. Related Data Home Medications ?Medication ?Instructions ?Recorded ?Confirmed aspirin 81 mg tablet,delayed 81 mg PO DAILY 04/22/18 10/15/24 release [id number] 8 mg-folic 400 1 tab PO DAILY supplement 09/17/20 10/15/24 mcg-K 50 mcg-lutein 300 mcg tablet (Centrum [place] Women) hydrocortisone 2.5 % topical cream 1 applic topical DIRECTED Skin 10/31/21 10/15/24 Condition gabapentin 100 mg capsule 100 mg PO BIDP PRN nerve pain 05/15/23 10/17/24 cholecalciferol (vitamin D3) 75 3,000 unit PO DAILY 03/11/24 10/17/24 mcg (3,000 unit) tablet citalopram 20 mg tablet 20 mg PO DAILY 10/17/24 10/17/24 losartan 100 mg tablet 100 mg PO DAILY 10/17/24 10/17/24 Previous Rx's ?Medication ?Instructions ?Recorded metoprolol succinate 25 mg 25 mg PO DAILY #90 tabs 12/10/23 tablet,extended release 24 hr bupropion HCl 150 mg tablet,12 hr 150 mg PO DAILY #90 ea 08/12/24 sustained-release omeprazole 20 mg capsule,delayed 20 mg PO DAILY #30 caps 09/11/24 release atorvastatin 80 mg tablet 80 mg PO HS #30 tabs 10/21/24 cefdinir 300 mg capsule 300 mg PO BID 2 days #4 caps 10/21/24 oxycodone-acetaminophen 7.5 mg-325 1 tab PO Q6HP PRN Moderate Pain 10/21/24 mg tablet (4-6) 3 days #11 tabs Allergies Allergy/AdvReac Type Severity Reaction Status Date / Time morphine Allergy Unknown Verified 10/15/24 13:55 allergy reaction propoxyphene (From Darvon) Allergy Unknown Verified 10/15/24 13:55 allergy reaction thimerosal (From Merthiolate Allergy Unknown Verified 10/15/24 13:55 (thimerosal)) allergy reaction PFSH PFS Disclaimer: The information contained in this section may have been updated after the patient was seen, as this information can be updated by other users. Medical History Pneumonia Thyroid nodule Memory loss Ataxia, unspecified Lumbago with sciatica, left side Primary generalized (osteo)arthritis Vitamin D deficiency, unspecified Abnormal electrocardiogram [ECG] [EKG] Fibromyalgia Abnormal EKG Diastolic dysfunction HTN (hypertension) HLD (hyperlipidemia) Gastroesophageal reflux disease Surgical History History of tonsillectomy Presence of artificial knee joint, bilateral History of cholecystectomy H/O total hysterectomy Family History Other Family history of Alzheimer disease Family history of cancer Social History Smoking Status: Never smoker second hand exposure: No alcohol intake: never substance use type: denies use current occupational status: other Travel in the last 8 weeks: Outside the [facility] household members: spouse housing: house current occupational exposures/hazards: No caffeine: Yes Have you lived/traveled outside [place] in past 30 days?: No Contact w/someone who lives/traveled outside [place] past 30 days?: No Exposure to someone with infectious disease in past 14 days?: No Do you have a fever (greater than 100.4 F or 38 C)?: No Have you tested positive for COVID-19: No Exposed to someone with COVID-19 in past 14 days?: No Do you have a sore throat?: No Do you have a cough?: No Do you have any weakness?: Yes Do you have any diarrhea?: No Are you experiencing any unusual bleeding?: No Do you have any muscle aches/pain?: No Do you have any abdominal pain?: No Are you experiencing loss of taste or smell?: No Other Medical History Have you received the Flu Vaccine for this season: No Have you received the Pneumonia Vaccine: No ROS Obtained: Yes Systems reviewed as appropriate & no additional complaints except as documented Physical Exam General General appearance: alert and in no apparent distress Respiratory Respiratory exam: Present respiratory distress (Increased work of breathing with accessory muscle use currently.), wheezes and accessory muscle use; Absent normal lung sounds bilaterally (Patient has wheezes and rhonchi in all 4 reddy with diminished breath sounds at the bases) Cardiovascular Cardiovascular exam: Present regular rate Neurological Exam Neurological exam: Present alert and oriented X3 Medical Decision Making Medical Records Medical records reviewed: Yes I reviewed the patient's medical records. Screening: Per USPSTF and CDC recommendations, given the prevalence of disease in our region, it is our hospital?s policy to screen for HIV and viral Hepatitis for all patients aged 18 and over and those with ongoing risk factors. August Inquiry Pt receiving controlled substance: No Vital Signs: 10/22/24 16:42 10/22/24 16:49 10/22/24 16:52 Temperature 98.0 F Temperature Source Oral Pulse Rate 94 H 84 Pulse Rate [Radial] 87 Respiratory Rate 22 Blood Pressure 189/151 H 198/85 H Blood Pressure [Right Arm] 189/151 H Blood Pressure Mean [Right Arm] 163 Blood Pressure Source [Right Arm] Automatic Cuff Blood Pressure Position [Right Arm] Sitting 02 Sat by Pulse Oximetry 97 93 L 91 L Oxygen Delivery Method Room Air Nasal Cannula Nasal Cannula Oxygen Flow Rate (LPM) 2 2 10/22/24 17:00 10/22/24 17:32 10/22/24 18:01 Temperature Temperature Source Pulse Rate 82 94 H 92 H Pulse Rate [Radial] Respiratory Rate Blood Pressure 196/82 H 212/87 H 178/76 H Blood Pressure [Right Arm] Blood Pressure Mean [Right Arm] Blood Pressure Source [Right Arm] Blood Pressure Position [Right Arm] 02 Sat by Pulse Oximetry 93 L 97 97 Oxygen Delivery Method Nasal Cannula Nasal Cannula Nasal Cannula Oxygen Flow Rate (LPM) 2 2 2 Lab Data Lab results reviewed: Yes I reviewed the patient's lab results. Lab Results 10/22/24 16:57: VBG pH 7.47 H, VBG pCO2 31.4 L, VBG pO2 65.0 H, VBG HCO3 22.3 L, VBG Total CO2 23.3, VBG O2 Saturation 93.7 H, VBG Base Excess -1.3, VBG Lactic Acid 1.2 10/22/24 17:02: PT 9.8, INR 0.88 L, Sodium 137, Potassium 3.3 L, Chloride 106, Carbon Dioxide 26, Anion Gap 8.3, BUN 12, Creatinine 0.30 L D, Estimated Creat Clear 42, Estimated GFR 215, Est GFR ( Amer) 260 D, Glucose 104 H, Calcium 9.1, Magnesium 1.8, Total Bilirubin 1.7 H, AST 86 H D, ALT 76 D, Alkaline Phosphatase 99, Troponin I 0.01, NT-Pro-B Natriuret Pep 1500 H, Total Protein 6.5, Albumin 3.4 L, Globulin 3.1, Albumin/Globulin Ratio 1.1, Procalcitonin 0.380 10/22/24 17:12: WBC 10.2, RBC 3.66 L, Hgb 10.8 L, Hct 30.6 L, MCV 83.6, MCH 29.5, MCHC 35.3, RDW 12.4, Plt Count 188, MPV 10.3, Neut % (Auto) 74.1, Lymph % (Auto) 12.2, [place] % (Auto) 9.3, Eos % (Auto) 1.4, Baso % (Auto) 0.6, Neut # (Auto) 7.5, Lymph # (Auto) 1.2, [place] # (Auto) 0.9, Eos # (Auto) 0.1, Baso # (Auto) 0.1 10/22/24 17:12 10/22/24 17:02 Orders (Tests/Meds): ED MEDICATIONS Discontinued Medications Generic Name Dose Route Start Last Admin Trade Name Freq PRN Reason Stop Dose Admin Albuterol/Ipratropium 9 ml 10/22/24 16:53 10/22/24 17:07 Ipratropium/Albuterol 3 Ml Neb IH 10/22/24 16:54 9 ml ONCE ONE Administration Furosemide 40 mg 10/22/24 17:47 10/22/24 18:00 Furosemide 40mg/4ml Vial IV 10/22/24 17:48 40 mg ONCE ONE Administration Iopamidol 70 ml 10/22/24 17:19 10/22/24 17:20 Iopamidol-370 (76%);100ml Bottle IV 10/22/24 17:20 70 ml ONCE ONE Administration Methylprednisolone Sodium Succinate 125 mg 10/22/24 16:53 10/22/24 17:21 Methylprednisolone Sod Succ 125mg Vial IV 10/22/24 16:54 125 mg ONCE ONE Administration Sodium Chloride 10 ml 10/22/24 17:19 10/22/24 17:20 Sodium Chloride 0.9% 10ml Syr (Rad Only) IV 10/22/24 17:20 10 ml ONCE ONE Administration Sodium Chloride 50 ml 10/22/24 17:19 10/22/24 17:20 0.9 % Sodium Chloride 50 Ml Vial IV 10/22/24 17:20 50 ml ONCE ONE Administration ORDERS Category Date Time Status CT angio chest PE protocol Stat Cat Scan 10/22/24 16:57 Completed BNP [NT Pro Brain Natriuretic Pep.] Stat Lab 10/22/24 17:02 Completed CBC w/Auto Diff [Complete Blood Count Auto Diff] Stat Lab 10/22/24 17:12 Completed CMP [Comprehensive Metabolic Panel] Stat Lab 10/22/24 17:02 Completed Full Resp Panel w/COVID ([facility]) Routine Lab 10/22/24 17:00 Received INR [Prothrombin Time INR] Stat Lab 10/22/24 17:02 Completed Magnesium Stat Lab 10/22/24 17:02 Completed Procalcitonin Stat Lab 10/22/24 17:02 Completed Trop I [Troponin I] Stat Lab 10/22/24 17:02 Completed Troponin I Q3H Lab 10/22/24 20:00 Ordered Troponin I Q3H Lab 10/22/24 23:00 Ordered VBG [Venous Blood Gas] Stat RT 10/22/24 16:57 Completed Medical Decision Narrative: In summary patient is a 79-year-old female who presents to the emergency department for evaluation of dyspnea and hypoxia. Patient is initially hypertensive at 189/151 with a pulse of 87 breathing 22 times a minute satting at 87% on 2 L by nasal cannula upon arrival, the temperature of 98 currently. Physical exam is remarkable for increased work of breathing and accessory muscle use, wheezes and rhonchi in all 4 reddy with diminished breath sounds at the bases, normal sinus rhythm on the bedside monitor. Differential diagnosis includes PE versus superimposed bacterial infection on aspiration pneumonitis versus worsening aspiration pneumonitis versus ARDS. Initial workup will be conducted with hematologic labs VBG CT PE protocol. Initial interventions include Solu-Medrol DuoNeb. Initial workup reviewed by me shows her white count is normal without a left shift, INR 0.88, ABG shows a pH of 7.47 pCO2 of 34.4 VBG lactic acid 1.2 CMP significant for potassium 3.3 creatinine 0.3 bilirubin is 1.7 AST is 86 initial troponin is 0.01 her NT proBNP is 1500 procalcitonin is 0.380 which shows a significant improvement in the interval and my informal interpretation of her CT scan PE protocol shows significant pulmonary insult with groundglass opacities consistent with ARDS and no obvious thrombus prior to radiology read.. Upon repeat evaluation patient is satting at 97% on continuous nebulizer however she is diaphoretic and still having significant increased work of breathing. I have ordered Lasix now given my interpretation of her CT scan. Given this I had interactive discussion with hospital medicine regarding patient findings and patient management and she will be admitted for further evaluation and care. Critical Care Critical Care Time Critical Care Time: Yes Attestation: On 10/22/24, the high probability of a clinically significant, sudden or life threatening deterioration of the following system: Respiratory; required my full and direct attention, intervention and personal management. The time I documented below is in addition to time spent performing reported procedures but includes the following listed in this critical care notation. Total Time Total Critical Care Time: 30
--- NOTE | 2024-10-22 16:57 | CT_ITS ---
PROCEDURE INFORMATION: Exam: CTA Chest With Contrast Exam date and time: 10/22/2024 5:18 PM Age: 79 years old Clinical indication: Dyspnea; Additional info: Dyspnea, aspiration pneumonitis TECHNIQUE: Imaging protocol: Computed tomographic angiography of the chest with contrast. Exam focused on the arteries. 3D rendering (Not supervised by radiologist): MIP and/or 3D reconstructed images were created by the technologist. Radiation optimization: All CT scans at this facility use at least one of these dose optimization techniques: automated exposure control; mA and/or kV adjustment per patient size (includes targeted exams where dose is matched to clinical indication); or iterative reconstruction. Contrast material: ISOVUE 370; Contrast volume: 70 ml; Contrast route: INTRAVENOUS (IV); COMPARISON: 1. CR XR CHEST PORTABLE 10/21/2024 5:[address] chest w con 11/28/2018 10:45 AM FINDINGS: Pulmonary arteries: Normal. No pulmonary emboli. Aorta: Mild thoracic aortic atherosclerotic disease without aneurysm or dissection. Thyroid: Mild enlargement in the right posterior thyroid nodule measuring 2.8 x 1.8 cm (previously 2.4 x 1.3 cm). Lungs: Patchy ground-glass opacities throughout the lungs. Pleural spaces: Small bilateral pleural effusions. Heart: Unremarkable. No cardiomegaly. No pericardial effusion. Coronary arteries: Mild coronary artery calcification. Lymph nodes: Unremarkable. No enlarged lymph nodes. Diaphragm: Small hiatal hernia. Kidneys: 3 mm calyceal calculus in the upper pole of the left kidney. Bones/joints: Vertebroplasty cement at L1. Mild chronic compression deformity of T7. Mild thoracic spine degenerative change. Osteopenia. Soft tissues: Unremarkable. IMPRESSION: 1. No evidence of a pulmonary embolism. 2. Patchy ground-glass opacities throughout the lungs could be due to aspiration or pneumonia. 3. Small bilateral pleural effusions. 4. Mild enlargement in the right posterior thyroid nodule measuring 2.8 x 1.8 cm (previously 2.4 x 1.3 cm). Consider follow-up thyroid ultrasound.
[2024-10-22] MEDS: IPRATROPIUM/ALBUTEROL 3 ML NEB 9 ML IH (17:07)
[2024-10-22 17:09] LABS: Lactate Venous 1.2 mmol/L (0.4-2.0); VBG Base Excess -1.3 mmol/L (-2.4-2.3); VBG HCO3 22.3 mmol/L (23-30); VBG Oxygen Saturation 93.7 % (50-70); VBG PCO2 31.4 mmol/L (35-51); VBG PH 7.47 mmol/L (7.31-7.41); VBG Total CO2 23.3 mmol/L (23-27)
--- NOTE | 2024-10-22 17:14 | PC.NURSE ---
PT TO RADIOLOGY
[2024-10-22 17:18] LABS: Albumin Level 3.4 g/dl (3.5-5.0); Chloride 106 mmol/L (98-107); Potassium 3.3 mmoL/L (3.5-5.1); Sodium 137 mmol/L (136-145)
[2024-10-22 17:20] LABS: Basophils # 0.1 K/mm3 (0-0.2); Basophils % 0.6 % (0.1-2.0); Eosinophils # 0.1 K/mm3 (0.0-0.4); Eosinophils % 1.4 % (0.1-12.0); Hematocrit 30.6 % (37.0-47.0); Hemoglobin 10.8 g/dL (12.2-16.2); Lymphocytes # 1.2 K/mm3 (0.7-4.5); Lymphocytes % 12.2 % (10-50); Mean Corpuscular HGB Conc 35.3 g/dL (31.8-35.4); Mean Corpuscular Hemoglobin 29.5 pg (27.0-31.2); Mean Corpuscular Volume 83.6 fl (81-99); Mean Platelet Volume 10.3 fl (7.4-10.4); Monocytes # 0.9 K/mm3 (0.1-1.0); Monocytes % 9.3 % (1.7-9.3); Neutrophils # 7.5 K/mm3 (1.8-7.8); Neutrophils % 74.1 % (37.0-80.0); Platelet Count 188 K/mm3 (142-424); Red Blood Count 3.66 M/mm3 (4.20-5.40); Red Cell Distribution Width 12.4 % (11.5-17.5); White Blood Count 10.2 K/mm3 (4.8-10.8)
[2024-10-22] MEDS: SODIUM CHLORIDE 0.9% 10ML SYR (RAD ONLY) 10 ML IV (17:20)
[2024-10-22] MEDS: IOPAMIDOL-370 (76%);100ML BOTTLE 70 ML IV (17:20)
[2024-10-22] MEDS: 0.9 % SODIUM CHLORIDE 50 ML VIAL IV (17:20)
[2024-10-22 17:21] LABS: Alanine Aminotransferase 76 U/L (12-78); Albumin/Globulin Ratio 1.1 (1.1-1.8); Alkaline Phosphatase 99 U/L (38-126); Anion Gap 8.3 mEq/L (5-15); Aspartate Amino Transferase 86 U/L (14-36); Bilirubin,Total 1.7 mg/dl (0.2-1.3); Blood Urea Nitrogen 12 mg/dl (7-17); Carbon Dioxide 26 mmol/L (22.0-30.0); Creatinine Clearance Estimated 42 mL/min (50-200); Estimated Glomerular Filt Rate 215 ml/min (>60); GFR (African American) 260 ML/MIN (>60); Globulin 3.1 g/dL (1.3-3.2); Total Protein,Serum 6.5 g/dl (6.3-8.2)
[2024-10-22 17:21] LABS: Adenovirus,PCR Not Detected (NotDetected); Bordetella Pertussis Not Detected (NotDetected); Chlamydophila Pneumoniae, PCR Not Detected (NotDetected); Coronavirus 19, PCR Not Detected (NotDetected); Coronavirus 229E Not Detected (NotDetected); Coronavirus NL63 Not Detected (NotDetected); Coronavirus OC43 Not Detected (NotDetected); Coronovirus HKU1,PCR Not Detected (NotDetected); Human Metapneumovirus Not Detected (NotDetected); Influenza A, PCR Not Detected (NotDetected); Influenza AH1, 2009 Not Detected (NotDetected); Influenza AH1, PCR Not Detected (NotDetected); Influenza AH3,PCR Not Detected (NotDetected); Influenza B, PCR Not Detected (NotDetected); Mycoplasma Pneumoniae, PCR Not Detected (NotDetected); Parainfluenza 1, PCR Not Detected (NotDetected); Parainfluenza 2, PCR Not Detected (NotDetected); Parainfluenza 3, PCR Not Detected (NotDetected); Parainfluenza 4, PCR Not Detected (NotDetected); Respiratory Syncytial Virus Not Detected (NotDetected); Rhinovirus/Enterovirus Not Detected (NotDetected)
[2024-10-22] MEDS: METHYLPREDNISOLONE SOD SUCC 125MG VIAL 125 MG IV (17:21)
[2024-10-22 17:22] LABS: Calcium 9.1 mg/dl (8.4-10.2); Glucose 104 mg/dl (74-100); Magnesium 1.8 mg/dl (1.6-2.3)
[2024-10-22 17:31] LABS: NT Pro Brain Natriuretic Pep. 1500 pg/mL (0-450)
[2024-10-22 17:37] LABS: Troponin I 0.01 ng/ml (0.00-0.034)
[2024-10-22 17:39] LABS: INR 0.88 (0.9-1.1); Prothrombin Time 9.8 seconds (9.2-12.1)
--- NOTE | 2024-10-22 17:56 | PC.NURSE ---
ROSAS NUNO SPEAKING WITH HOSPITALIST
[2024-10-22] MEDS: FUROSEMIDE 40MG/4ML VIAL 40 MG IV (18:00)
[2024-10-22] MEDS: CEFDINIR 300MG CAPSULE 300 MG PO (20:40)
[2024-10-22 21:14] LABS: Troponin I 0.02 ng/ml (0.00-0.034)
--- NOTE | 2024-10-22 21:43 | P.HP_ITS ---
<Statement entered by Wayne Plummer MD - 10/29/24 10:29> Personally examined patient and agree with the plan of care as outlined by the [employer]. History of Present Illness *Admission Date: 10/22/24 *Reason for visit:: Shortness of breath *History of present illness: This is a 79-year-old female who with a past medical history of CAD, degenerative disc disease, osteoporosis, HTN and HLD who presents to the emergency department for worsening shortness of breath. She recently underwent kyphoplasty here and had complicated surgical course with aspiration pneumonia shortly after extubation. She was admitted to our ICU here for respiratory distress. She ultimately underwent treatment for aspiration pneumonia and was discharged on 10/21/2024 home on 2 L nasal cannula and 7-day course of cefdinir. She states that she was doing okay at discharge. Had walked with PT in her room without being short of breath. She developed acute onset of shortness of breath today at home with PT and OT. States that she ambulated through her home with PT and OT and had a drop in oxygen saturations into the 70s. Took several minutes to recover her oxygen on her baseline 2 L nasal cannula. Emergency department workup notable for hypoxia on 2 L nasal cannula with incre ased work of breathing. Laboratory evaluation mostly unremarkable except for mild hypokalemia. BNP of 1500. Chest x-ray with continued hazy opacities. CT imaging negative for PE but notable for patchy groundglass opacities throughout the lungs that could respirated aspiration or pneumonia. Patient did receive IV Lasix in the emergency department for likely pulmonary edema with improvement in respiratory symptoms. Decreased work of breathing noted after Lasix and Solu-Medrol. She is currently oxygenating in the mid 90s on 6 L nasal cannula. At the time of admission she was in no distress and able to speak in full sentences. [facility] Disclaimer: The information contained in this section may have been updated after the patient was seen, as this information can be updated by other users. Medical History Pneumonia Thyroid nodule Memory loss Ataxia, unspecified Lumbago with sciatica, left side Primary generalized (osteo)arthritis Vitamin D deficiency, unspecified Abnormal electrocardiogram [ECG] [EKG] Fibromyalgia Abnormal EKG Diastolic dysfunction HTN (hypertension) HLD (hyperlipidemia) Gastroesophageal reflux disease Surgical History History of tonsillectomy Presence of artificial knee joint, bilateral History of cholecystectomy H/O total hysterectomy Family History Other Family history of Alzheimer disease Family history of cancer Social History Smoking Status: Never smoker second hand exposure: No alcohol intake: never substance use type: denies use current occupational status: other Travel in the last 8 weeks: Outside the [facility] household members: spouse housing: house current occupational exposures/hazards: No caffeine: Yes Have you lived/traveled outside [place] in past 30 days?: No Contact w/someone who lives/traveled outside [place] past 30 days?: No Exposure to someone with infectious disease in past 14 days?: No Do you have a fever (greater than 100.4 F or 38 C)?: No Have you tested positive for COVID-19: No Exposed to someone with COVID-19 in past 14 days?: No Do you have a sore throat?: No Do you have a cough?: No Do you have any weakness?: Yes Do you have any diarrhea?: No Are you experiencing any unusual bleeding?: No Do you have any muscle aches/pain?: No Do you have any abdominal pain?: No Are you experiencing loss of taste or smell?: No Other Medical History Have you received the Flu Vaccine for this season: No Have you received the Pneumonia Vaccine: No Review of Systems Review of Systems Review of systems:: pertinent systems reviewed and negative unless documented below Review of systems (narrative): Negative except for HPI Meds Home Medications and Allergies Home Medications ?Medication ?Instructions ?Recorded ?Confirmed ?Type aspirin 81 mg tablet,delayed 81 mg PO DAILY 04/22/18 10/22/24 History release [id number] 8 mg-folic 400 1 tab PO DAILY supplement 09/17/20 10/22/24 History mcg-K 50 mcg-lutein 300 mcg tablet (Centrum Silver Women) hydrocortisone 2.5 % topical cream 1 applic topical DIRECTED Skin 10/31/21 10/22/24 History Condition gabapentin 100 mg capsule 100 mg PO BIDP PRN nerve pain 05/15/23 10/22/24 History metoprolol succinate 25 mg 25 mg PO DAILY #90 tabs 12/10/23 10/22/24 Rx tablet,extended release 24 hr cholecalciferol (vitamin D3) 75 3,000 unit PO DAILY 03/11/24 10/22/24 History mcg (3,000 unit) tablet bupropion HCl 150 mg tablet,12 hr 150 mg PO DAILY #90 ea 08/12/24 10/22/24 Rx sustained-release omeprazole 20 mg capsule,delayed 20 mg PO DAILY #30 caps 09/11/24 10/22/24 Rx release citalopram 20 mg tablet 20 mg PO DAILY 10/17/24 10/22/24 History losartan 100 mg tablet 100 mg PO DAILY 10/17/24 10/22/24 History atorvastatin 80 mg tablet 80 mg PO HS #30 tabs 10/21/24 10/22/24 Rx cefdinir 300 mg capsule 300 mg PO BID 2 days #4 caps 10/21/24 10/22/24 Rx oxycodone-acetaminophen 7.5 mg-325 1 tab PO Q6HP PRN Moderate Pain 10/21/24 10/22/24 Rx mg tablet (4-6) 3 days #11 tabs New Prescriptions to Start Prescriptions: Allergies Allergy/AdvReac Type Severity Reaction Status Date / Time morphine Allergy Unknown Verified 10/15/24 13:55 allergy reaction propoxyphene (From Darvon) Allergy Unknown Verified 10/15/24 13:55 allergy reaction thimerosal (From Merthiolate Allergy Unknown Verified 10/15/24 13:55 (thimerosal)) allergy reaction Exam Data for Last 24 hours Vital signs and Labs for Last 24 Hours: Temp Pulse Resp BP Pulse Ox O2 Del Method O2 Flow Rate 98.6 F 100 H 24 167/71 H 95 Nasal Cannula 6 10/22/24 20:34 10/22/24 20:34 10/22/24 20:34 10/22/24 20:34 10/22/24 19:40 10/22/24 20:34 10/22/24 20:34 Laboratory Results - last 24 hr 10/22/24 16:57: VBG pH 7.47 H, VBG pCO2 31.4 L, VBG pO2 65.0 H, VBG HCO3 22.3 L, VBG Total CO2 23.3, VBG O2 Saturation 93.7 H, VBG Base Excess -1.3, VBG Lactic Acid 1.2 10/22/24 17:00: Chlamy pneumoniae PCR Not detected, Adenovirus (PCR) Not detected, B. pertussis DNA (PCR) Not detected, Coronavirus OC43 (PCR) Not detected, Coronavirus HKU1 (PCR) Not detected, Coronavirus 229E (PCR) Not detected, SARS-CoV-2 (PCR) Not detected, Coronavirus NL63 (PCR) Not detected, Human Metapneumovir PCR Not detected, Influenza A (H1) PCR Not detected, Influ A (H1N1/09) PCR Not detected, Influenza A (H3) PCR Not detected, Influenza Type A (PCR) Not detected, Influenza Type B (PCR) Not detected, M. pneumoniae (PCR) Not detected, Parainfluenza 1 (PCR) Not detected, Parainfluenza 2 (PCR) Not detected, Parainfluenza 3 (PCR) Not detected, Parainfluenza 4 (PCR) Not detected, RSV (PCR) Not detected, Entero/Rhino (PCR) Not detected 10/22/24 17:02: PT 9.8, INR 0.88 L, Sodium 137, Potassium 3.3 L, Chloride 106, Carbon Dioxide 26, Anion Gap 8.3, BUN 12, Creatinine 0.30 L D, Estimated Creat Clear 42, Estimated GFR 215, Est GFR ( Amer) 260 D, Glucose 104 H, Calcium 9.1, Magnesium 1.8, Total Bilirubin 1.7 H, AST 86 H D, ALT 76 D, Alkaline Phosphatase 99, Troponin I 0.01, NT-Pro-B Natriuret Pep 1500 H, Total Protein 6.5, Albumin 3.4 L, Globulin 3.1, Albumin/Globulin Ratio 1.1, Procalcitonin 0.380 10/22/24 17:12: WBC 10.2, RBC 3.66 L, Hgb 10.8 L, Hct 30.6 L, MCV 83.6, MCH 29.5, MCHC 35.3, RDW 12.4, Plt Count 188, MPV 10.3, Neut % (Auto) 74.1, Lymph % (Auto) 12.2, [place] % (Auto) 9.3, Eos % (Auto) 1.4, Baso % (Auto) 0.6, Neut # (Auto) 7.5, Lymph # (Auto) 1.2, [place] # (Auto) 0.9, Eos # (Auto) 0.1, Baso # (Auto) 0.1 10/22/24 20:40: Troponin I 0.02 I & O for Last 24 hours: Intake & Output 10/19/24 10/20/24 10/21/24 10/22/24 23:59 23:59 23:59 23:59 Weight 58.967 kg Constitutional Constitutional: no acute distress *Routine HEENT Exam Head: Present normocephalic Eye: Present EOMI and PERRL ENT: Present mucous membranes moist *Routine Neck Exam Neck: Present supple; Absent lymphadenopathy *Routine Respiratory Exam Respiratory: Present CTA bilaterally *Routine Cardiovascular Exam Cardiovascular: Present RRR *Routine Abdominal Exam Abdominal: Present soft and normoactive bowel sounds; Absent tenderness *Routine Rectal Exam Rectal:: deferred *Routine Genitalia Exam Genitalia:: deferred *Routine Extremities Exam Extremities: Absent cyanosis, clubbing or edema *Routine Skin Exam Skin: Present warm; Absent rash *Routine Neurological Exam Neurological: Present alert and oriented X3 Assessment and Plan *Assessment and plan (1) Acute hypoxemic respiratory failure: Status: Acute Category: Medical Code(s): J96.01 - Acute respiratory failure with hypoxia (2) HTN (hypertension): Status: Chronic Qualifiers: Hypertension type: essential hypertension Qualified Code(s): I10 - Essential (primary) hypertension Category: Medical Code(s): I10 - Essential (primary) hypertension (3) HLD (hyperlipidemia): Status: Chronic Qualifiers: Hyperlipidemia type: mixed hyperlipidemia Qualified Code(s): E78.2 - Mi xed hyperlipidemia Category: Medical Code(s): E78.5 - Hyperlipidemia, unspecified (4) Chronic back pain: Status: Acute Qualifiers: Back pain location: back pain in unspecified location Category: Medical Code(s): M54.9 - Dorsalgia, unspecified; G89.29 - Other chronic pain Plan Addendum: 2345 10/22/24 Noted by bedside RN to have deepening ST segment on bedside monitor. Repeat EKG obtained and notable for possible septal disease, LVH and ST changes. New and old EKGs sent to Dr. Vincent. Pt remains chest pain free, troponin negative x 3. LBBB noted this week on initial admission to hospital. Cards consulted at that time and recommended outpatient ischemic eval. Spoke with Dr. Vincent and given recurrent hospitalization with worsening respiratory sypmptoms, will likely go for heart cath in AM. Will make NPO now, defer heparin at this time given otherwise stable cardiac work up. Pt resting comfortably in no distress at this time. #Acute respiratory failure with hypoxia Chest imaging concerning for continued aspiration pneumonia. Patient does have elevated proBNP. Complaining of [facility]. Seemed to do well after dose of Lasix. Procalcitonin is negative currently on repeat eval today. Will continue patient's cefdinir from discharge. Appears to be more fluid or inflammatory related. Will continue Lasix on admission. Echo completed on 10/20 with RVSP of 50-55. EF 65%. Sputum Culture if able Pulmonary Toliet Strict intake and output Low sodium duet Fluid restriction #LBBB Cardiology consulted overnight, spoke with Dr. Vincent Chronic, noted on repeat prior EKGs. Given worsening respiratory symptoms and ST changes, will likely go for heart cath in a.m. Continue aspirin and atorvastatin #HTN #HLD Continue home medication #Chronic pain #Recent kyphoplasty Continue multimodal pain medication
--- NOTE | 2024-10-22 23:44 | ECG_ITS ---
APPROVED REPORT Exam: Resting ECG HR:90 bpm ECG Measurements Heart Rate 90 AXES DE 137 P 47 QRSd 135 QRS 81 QT 426 T -12 QTc 474 Conclusion SINUS RHYTHM INTRAVENTRICULAR CONDUCTION DELAY [130+ ms QRS DURATION] LEFT VENTRICULAR HYPERTROPHY AND ST-T CHANGE [VOLTAGE CRITERIA PLUS ST/T ABNORMALITY] POSSIBLE SEPTAL MYOCARDIAL INFARCTION , POSSIBLY ACUTE [30 ms Q WAVE IN V1/V2] ACUTE NH INTERPRETATION BASED ON A DEFAULT AGE OF 40 YEARS UNCONFIRMED REPORT Electronically signed by : Jose Remy MD 10/24/2024 09:19:07
[2024-10-22 23:49] LABS: Troponin I 0.02 ng/ml (0.00-0.034)
[2024-10-23] VITALS (26 sets, daily range): BP systolic 114–168; BP diastolic 57–68; PULSE 56–90; RESP 13–31; TEMP 36.4–37.1; O2SAT 86–96; BMI 26.6
[2024-10-23 02:57] LABS: Troponin I 0.02 ng/ml (0.00-0.034)
[2024-10-23 06:23] LABS: C-Reactive Protein 167.1 mg/L (0-4)
[2024-10-23 06:29] LABS: Troponin I < 0.01 ng/ml (0.00-0.034)
[2024-10-23 06:53] LABS: Anion Gap 11.4 mEq/L (5-15); Blood Urea Nitrogen 12 mg/dl (7-17); Calcium 8.9 mg/dl (8.4-10.2); Carbon Dioxide 28 mmol/L (22.0-30.0); Chloride 102 mmol/L (98-107); Creatinine Clearance Estimated 43 mL/min (50-200); Estimated Glomerular Filt Rate 215 ml/min (>60); GFR (African American) 260 ML/MIN (>60); Glucose 160 mg/dl (74-100); Potassium 3.4 mmoL/L (3.5-5.1); Sodium 138 mmol/L (136-145)
[2024-10-23 06:56] LABS: Erythrocyte Sedimentation Rate > 140 mm/hr (0-30)
[2024-10-23 07:03] LABS: Basophils % 0.1 % (0.1-2.0); Hematocrit 29.6 % (37.0-47.0); Hemoglobin 10.3 g/dL (12.2-16.2); Lymphocytes # 0.6 K/mm3 (0.7-4.5); Lymphocytes % 9.5 % (10-50); Mean Corpuscular HGB Conc 34.8 g/dL (31.8-35.4); Mean Corpuscular Hemoglobin 28.9 pg (27.0-31.2); Mean Corpuscular Volume 83.1 fl (81-99); Mean Platelet Volume 10.9 fl (7.4-10.4); Monocytes # 0.2 K/mm3 (0.1-1.0); Monocytes % 3.6 % (1.7-9.3); Neutrophils # 5.7 K/mm3 (1.8-7.8); Platelet Count 196 K/mm3 (142-424); Red Blood Count 3.56 M/mm3 (4.20-5.40); Red Cell Distribution Width 12.4 % (11.5-17.5); White Blood Count 6.7 K/mm3 (4.8-10.8)
--- NOTE | 2024-10-23 07:35 | HMH.PHAINT1 ---
Pharmacy Intervention Comments: VERIFIED MEDICATIONS WITH OUTPATIENT PHARMACY, CONFIRMED WITH PATIENT.
--- NOTE | 2024-10-23 08:00 | XR_ITS ---
FINAL REPORT CLINICAL HISTORY: hypoxia COMPARISON: 10/21/2024 FINDINGS: There are multifocal airspace opacities bilaterally compatible with pneumonia. Findings are completely stable from previous. There is no evidence of effusion or pneumothorax. Mediastinum is unremarkable. Heart size is normal. IMPRESSION: Stable, multifocal pneumonia. Reviewed, Interpreted and Dictated by Kelsie Sauceda MD Transcribed by Radha Manjarrez Authenticated and [facility]
--- NOTE | 2024-10-23 08:40 | PC.NURSE ---
called cath lab radiological technologist to confirm pt could have morning meds that included lasix. They had no knowledge of the patients scheduled cath. Spoke with Dr. Plummer about medical director/head team physician and he reported cardiology hadnt decided for sure on the cath so all the meds could be given at this time
[2024-10-23] MEDS: GABAPENTIN 100MG CAPSULE 100 MG PO (08:52)
[2024-10-23] MEDS: ASPIRIN EC 81MG TABLET 81 MG PO (08:52)
[2024-10-23] MEDS: METOPROLOL SUCCINATE XL 25MG TABLET 25 MG PO (08:52)
[2024-10-23] MEDS: CEFDINIR 300MG CAPSULE 300 MG PO ×2 (08:52→20:43)
[2024-10-23] MEDS: FUROSEMIDE 40MG/4ML VIAL 40 MG IV ×2 (08:52→17:01)
[2024-10-23] MEDS: buPROPion HCl SR 150MG TAB 150 MG PO (08:52)
--- NOTE | 2024-10-23 09:20 | P.CONCA_ITS ---
History of Present Illness History of Present Illness Consult date: 10/23/24 Chief complaint: soa History of present illness: Hospitalist Note: This is a 79-year-old female who with a past medical history of CAD, degenerative disc disease, osteoporosis, HTN and HLD who presents to the emergency department for worsening shortness of breath. She recently underwent kyphoplasty here and had complicated surgical course with aspiration pneumonia shortly after extubation. She was admitted to our ICU here for respiratory distress. She ultimately underwent treatment for aspiration pneumonia and was discharged on 10/21/2024 home on 2 L nasal cannula and 7-day course of cefdinir. She states that she was doing okay at discharge. Had walked with PT in her room without being short of breath. She developed acute onset of shortness of breath today at home with PT and OT. States that she ambulated through her home with PT and OT and had a drop in oxygen saturations into the 70s. Took several minutes to recover her oxygen on her baseline 2 L nasal cannula. Emergency department workup notable for hypoxia on 2 L nasal cannula with increased work of breathing. Laboratory evaluation mostly unremarkable except for mild hypokalemia. BNP of 1500. Chest x-ray with continued hazy opacities. CT imaging negative for PE but notable for patchy groundglass opacities throughout the lungs that could respirated aspiration or pneumonia. Patient did receive IV Lasix in the emergency department for likely pulmonary edema with improvement in respiratory symptoms. Decreased work of breathing noted after Lasix and Solu-Medrol. She is currently oxygenating in the mid 90s on 6 L nasal cannula. At the time of admission she was in no distress and able to speak in full sentences. Cards Note: Serial troponins remain negative. EKGs reviewed which shows chronic left bundle branch block, sinus rhythm in the 80s. Echo from October 20, 2024 showed a normal biventricular systolic function with mild . Elevated RVSP of 50-55. Patient is responding to IV diuretics and resting comfortably. Denies current chest pain only complaint last night was shortness of breath. Does endorse some episodes of chest pain off and on prior to recent events. Normal Myoview 2022. Mild nonflow limiting coronary artery disease noted on left heart cath 2019 [facility] Disclaimer: The information contained in this section may have been updated after the patient was seen, as this information can be updated by other users. Medical History Pneumonia Thyroid nodule Memory loss Ataxia, unspecified Lumbago with sciatica, left side Primary generalized (osteo)arthritis Vitamin D deficiency, unspecified Abnormal electrocardiogram [ECG] [EKG] Fibromyalgia Abnormal EKG Diastolic dysfunction HTN (hypertension) HLD (hyperlipidemia) Gastroesophageal reflux disease Surgical History History of tonsillectomy Presence of artificial knee joint, bilateral History of cholecystectomy H/O total hysterectomy Family History Other Family history of Alzheimer disease Family history of cancer Social History Smoking Status: Never smoker second hand exposure: No alcohol intake: never substance use type: denies use current occupational status: other Travel in the last 8 weeks: Outside the [facility] household members: spouse housing: house current occupational exposures/hazards: No caffeine: Yes Have you lived/traveled outside [place] in past 30 days?: No Contact w/someone who lives/traveled outside [place] past 30 days?: No Exposure to someone with infectious disease in past 14 days?: No Do you have a fever (greater than 100.4 F or 38 C)?: No Have you tested positive for COVID-19: No Exposed to someone with COVID-19 in past 14 days?: No Do you have a sore throat?: No Do you have a cough?: No Do you have any weakness?: Yes Do you have any diarrhea?: No Are you experiencing any unusual bleeding?: No Do you have any muscle aches/pain?: No Do you have any abdominal pain?: No Are you experiencing loss of taste or smell?: No Review of Systems *Cardiovascular Cardiovascular: Reports chest pain and Reports dyspnea *Respiratory Respiratory: Reports dyspnea Exam Data for Last 24 hours Vital signs and Labs for Last 24 Hours: Temp Pulse Resp BP Pulse Ox O2 Del Method O2 Flow Rate 98.5 F 68 25 H 152/58 H 94 L Nasal Cannula 4 10/23/24 08:00 10/23/24 06:00 10/23/24 06:00 10/23/24 06:00 10/23/24 06:00 10/23/24 06:00 10/23/24 06:00 Laboratory Results - last 24 hr 10/22/24 16:57: VBG pH 7.47 H, VBG pCO2 31.4 L, VBG pO2 65.0 H, VBG HCO3 22.3 L, VBG Total CO2 23.3, VBG O2 Saturation 93.7 H, VBG Base Excess -1.3, VBG Lactic Acid 1.2 10/22/24 17:00: Chlamy pneumoniae PCR Not detected, Adenovirus (PCR) Not detected, B. pertussis DNA (PCR) Not detected, Coronavirus OC43 (PCR) Not detected, Coronavirus HKU1 (PCR) Not detected, Coronavirus 229E (PCR) Not detected, SARS-CoV-2 (PCR) Not detected, Coronavirus NL63 (PCR) Not detected, Human Metapneumovir PCR Not detected, Influenza A (H1) PCR Not detected, Influ A (H1N1/09) PCR Not detected, Influenza A (H3) PCR Not detected, Influenza Type A (PCR) Not detected, Influenza Type B (PCR) Not detected, M. pneumoniae (PCR) Not detected, Parainfluenza 1 (PCR) Not detected, Parainfluenza 2 (PCR) Not detected, Parainfluenza 3 (PCR) Not detected, Parainfluenza 4 (PCR) Not detected, RSV (PCR) Not detected, Entero/Rhino (PCR) Not detected 10/22/24 17:02: PT 9.8, INR 0.88 L, Sodium 137, Potassium 3.3 L, Chloride 106, Carbon Dioxide 26, Anion Gap 8.3, BUN 12, Creatinine 0.30 L D, Estimated Creat Clear 42, Estimated GFR 215, Est GFR ( Amer) 260 D, Glucose 104 H, Calcium 9.1, Magnesium 1.8, Total Bilirubin 1.7 H, AST 86 H D, ALT 76 D, Alkaline Phosphatase 99, Troponin I 0.01, NT-Pro-B Natriuret Pep 1500 H, Total Protein 6.5, Albumin 3.4 L, Globulin 3.1, Albumin/Globulin Ratio 1.1, Procalcitonin 0.380 10/22/24 17:12: WBC 10.2, RBC 3.66 L, Hgb 10.8 L, Hct 30.6 L, MCV 83.6, MCH 29.5, MCHC 35.3, RDW 12.4, Plt Count 188, MPV 10.3, Neut % (Auto) 74.1, Lymph % (Auto) 12.2, [place] % (Auto) 9.3, Eos % (Auto) 1.4, Baso % (Auto) 0.6, Neut # (Auto) 7.5, Lymph # (Auto) 1.2, [place] # (Auto) 0.9, Eos # (Auto) 0.1, Baso # (Auto) 0.1 10/22/24 20:40: Troponin I 0.02 10/22/24 23:15: Troponin I 0.02 10/23/24 01:50: Troponin I 0.02 10/23/24 05:20: WBC 6.7 D, RBC 3.56 L, Hgb 10.3 L, Hct 29.6 L, MCV 83.1, MCH 28.9, MCHC 34.8, RDW 12.4, Plt Count 196, MPV 10.9 H, Neut % (Auto) 85.0 H, Lymph % (Auto) 9.5 L, [place] % (Auto) 3.6, Eos % (Auto) 0.0 L, Baso % (Auto) 0.1, Neut # (Auto) 5.7, Lymph # (Auto) 0.6 L, [place] # (Auto) 0.2, Eos # (Auto) 0.0, Baso # (Auto) 0.0, ESR > 140 H, Sodium 138, Potassium 3.4 L, Chloride 102, Carbon Dioxide 28, Anion Gap 11.4, BUN 12, Creatinine 0.30 L, Estimated Creat Clear 43, Estimated GFR 215, Est GFR ( Amer) 260, Glucose 160 H D, Calcium 8.9, Troponin I < 0.01, C-Reactive Protein 167.1 H I & O for Last 24 hours: Intake & Output 10/20/24 10/21/24 10/22/24 10/23/24 23:59 23:59 23:59 23:59 Intake Total 240 / 240 Output Total 100 / 100 0 / 0 Balance -100 / 140 240 / 240 Weight 130 lb 132 lb Constitutional Constitutional: no acute distress *Routine Respiratory Exam Respiratory: Present CTA bilaterally and symmetric chest movement *Routine Cardiovascular Exam Cardiovascular: Present RRR, Normal S1 and Normal S2 *Routine Abdominal Exam Abdominal: Present soft and normoactive bowel sounds; Absent tenderness *Routine Extremities Exam Extremities: Present full ROM and normal capillary refill; Absent edema *Routine Skin Exam Skin: Present intact, dry and warm Detailed Neck Exam: Thyroids Thyroid: Absent bruit Meds Home Medications and Allergies Home Medications ?Medication ?Instructions ?Recorded ?Confirmed ?Type aspirin 81 mg tablet,delayed 81 mg PO DAILY 04/22/18 10/23/24 History release pbajqrda-rhby-yylc 8 mg-folic 400 1 tab PO DAILY supplement 09/17/20 10/23/24 History mcg-K 50 mcg-lutein 300 mcg tablet (Centrum Silver Women) hydrocortisone 2.5 % topical cream 1 applic topical DIRECTED Skin 10/31/21 10/23/24 History Condition gabapentin 100 mg capsule 100 mg PO BIDP PRN nerve pain 05/15/23 10/23/24 History metoprolol succinate 25 mg 25 mg PO DAILY #90 tabs 12/10/23 10/23/24 Rx tablet,extended release 24 hr cholecalciferol (vitamin D3) 75 3,000 unit PO DAILY 03/11/24 10/23/24 History mcg (3,000 unit) tablet bupropion HCl 150 mg tablet,12 hr 150 mg PO DAILY #90 ea 08/12/24 10/23/24 Rx sustained-release omeprazole 20 mg capsule,delayed 20 mg PO DAILY #30 caps 09/11/24 10/23/24 Rx release citalopram 20 mg tablet 20 mg PO DAILY 10/17/24 10/23/24 History losartan 100 mg tablet 100 mg PO DAILY 10/17/24 10/23/24 History atorvastatin 80 mg tablet 80 mg PO HS #30 tabs 10/21/24 10/23/24 Rx cefdinir 300 mg capsule 300 mg PO BID 2 days #4 caps 10/21/24 10/23/24 Rx oxycodone-acetaminophen 7.5 mg-325 1 tab PO Q6HP PRN Moderate Pain 10/21/24 10/23/24 Rx mg tablet (4-6) 3 days #11 tabs New Prescriptions to Start Prescriptions: Allergies Allergy/AdvReac Type Severity Reaction Status Date / Time morphine Allergy Unknown Verified 10/15/24 13:55 allergy reaction propoxyphene (From Darvon) Allergy Unknown Verified 10/15/24 13:55 allergy reaction thimerosal (From Merthiolate Allergy Unknown Verified 10/15/24 13:55 (thimerosal)) allergy reaction Assessment and Plan *Assessment and plan (1) Acute hypoxemic respiratory failure: Status: Acute Category: Medical Code(s): J96.01 - Acute respiratory failure with hypoxia (2) Acute respiratory distress syndrome (ARDS): Status: Acute Category: Medical Code(s): J80 - Acute respiratory distress syndrome (3) Aspiration pneumonitis: Status: Acute Category: Medical Code(s): J69.0 - Pneumonitis due to inhalation of food and vomit (4) Left bundle branch block: Status: Acute Category: Medical Code(s): I44.7 - Left bundle-branch block, unspecified (5) HTN (hypertension): Status: Chronic Qualifiers: Hypertension type: essential hypertension Qualified Code(s): I10 - Essential (primary) hypertension Category: Medical Code(s): I10 - Essential (primary) hypertension (6) HLD (hyperlipidemia): Status: Chronic Qualifiers: Hyperlipidemia type: mixed hyperlipidemia Qualified Code(s): E78.2 - Mixed hyperlipidemia Category: Medical Code(s): E78.5 - Hyperlipidemia, unspecified (7) CAD (coronary artery disease): Status: Chronic Qualifiers: Associated angina: without angina Coronary Disease-Associated Artery/Lesion type: [place] artery [place] vs. transplanted heart: [place] heart Qualified Code(s): I25.10 - Atherosclerotic heart disease of [place] coronary artery without angina pectoris Category: Medical Code(s): I25.10 - Atherosclerotic heart disease of [place] coronary artery without angina pectoris Plan Acute hypoxic respiratory failure Status post aspiration pneumonia Chest CTA 10/22/2024 shows no evidence of pulmonary embolism, patchy groundglass opacities throughout the lungs could be due to aspiration pneumonia, small bilateral pleural effusions Chest x-ray from today shows stable multifocal pneumonia Defer pneumonia to primary service and pulmonology Add Lasix 40mg po daily Chronic left bundle branch block History of mild nonflow limiting coronary artery disease Dyspnea with exertion Chronic left bundle branch block noted Serial troponins remain negative Normal Myoview 2022 Mild nonflow limiting coronary artery disease with diastolic dysfunction noted on heart cath 09/21/2020 Continue aspirin and statin Left heart catheterization: Nonocclusive coronary artery disease with a normal ejection fraction. Diastolic dysfunction Elevated RVSP 50-55 Mild Change IV Lasix to 40 mg p.o. daily CV summary 10/23/2024: Patient is CV stable for discharge home. Left heart catheterization revealed nonocclusive coronary artery disease with a preserved ejection fraction. Please continue below listed medications and have patient follow-up in cardiology clinic in 1 week for reevaluation. CV meds: Aspirin 81 mg p.o. daily Atorvastatin 80 mg p.o. daily Irbesartan 150 mg p.o. daily Toprol 25 mg p.o. daily Lasix 40 mg daily
--- NOTE | 2024-10-23 09:51 | IR_ITS ---
APPROVED REPORT Patient Location: Inpatient PROCEDURES Left heart catheterization Left ventriculogram Selective coronary angiogram INDICATION Unstable angina Informed consent was obtained prior to the procedure. COMPLICATIONS NONE Estimated Blood Loss: LESS THAN 10 ML TECHNIQUE One percent lidocaine used to anesthetize the right anterior aspect of the wrist. The right radial artery was accessed via the Seldinger technique. A 6 [place] sheath was placed in the right radial artery. 2.5 mg of Verapamil, 800 mcg of nitroglycerin, 1mg Lidocaine and 5000 U Heparin were given through the arterial sheath. The 6 [place] JL 3 guide catheter was used to perform left heart catheterization left ventriculogram and selective coronary angiogram. At the end of the procedure the sheath was removed good hemostasis was achieved using Traclet band, patient was transferred to the postop holding area in stable condition. ANGIOGRAPHIC RESULTS The left main artery Normal The left anterior descending artery Has proximal and mid vessel 10 to 20% luminal irregularities The circumflex artery Dominant with diffuse 10 to 20% luminal regularities The right coronary artery Nondominant with 10% diffuse luminal regularities The NDIAYE ventriculogram reveals Normal 65% The left ventricular end-diastolic pressure 15 mmHg IMPRESSION Nonocclusive coronary artery disease Normal ejection fraction Borderline LVEDP PLAN 1. Medical management Electronically signed by : Jasper Vincent MD 10/23/2024 13:04:06
--- NOTE | 2024-10-23 10:44 | FL_ITS ---
FINAL REPORT CLINICAL HISTORY: recurrent aspiration FT: 3:56 283.27 MGY FINDINGS: FLUOROSCOPY LESS THAN 1 HOUR HISTORY: Fluoroscopy guidance. FINDINGS: Fluoroscopic guidance was provided for barium swallow. A total of 3:56 minutes of fluoroscopy time were used. DAP: 283.27 mGy IMPRESSION: As above. Reviewed, Interpreted and Dictated by Ammon Darnell MD Transcribed by Sarah Scott Authenticated and [facility]
[2024-10-23] MEDS: IRBESARTAN 150MG TAB 150 MG PO (11:30)
[2024-10-23 11:41] LABS: Troponin I 0.01 ng/ml (0.00-0.034)
[2024-10-23] MEDS: LIDOCAINE 1% 10ML MDV 20 ML IJ (12:39)
[2024-10-23] MEDS: HEPARIN 1,000 UNITS/500ML NS (CATH LAB) 3000 UNIT IV (12:39)
[2024-10-23] MEDS: diphenhydrAMINE 50MG/ML VIAL 50 MG IV (12:39)
[2024-10-23] MEDS: HEPARIN 1,000 UNITS/ML 10ML VIAL (CATH LAB) 10000 UNIT IV (12:40)
[2024-10-23] MEDS: VERAPAMIL 2.5MG/ML 2ML VIAL 2.5 MG IV (12:40)
[2024-10-23] MEDS: 0.9 % SODIUM CHLORIDE 500 ML 25 ML IV (12:41)
[2024-10-23] MEDS: NITROGLYCERIN 800MCG/8ML SYR (CATH LAB) 800 MCG IA (12:43)
[2024-10-23] MEDS: FENTANYL 100MCG/2ML VIAL 50 MCG IV (13:03)
[2024-10-23] MEDS: MIDAZOLAM HCL 1MG/ML 5ML VIAL 1 MG IV (13:03)
[2024-10-23] MEDS: IOPAMIDOL-370 (76%);100ML BOTTLE 50 ML IV (13:19)
--- NOTE | 2024-10-23 13:19 | SUR.PHASEII ---
patient recovered in procedure room prior to transfer to ICU
--- NOTE | 2024-10-23 13:20 | PC.NURSE ---
pt returned from cathlab
--- NOTE | 2024-10-23 15:24 | PC.NURSE ---
Assumed care of patient and received report from Elliot Richardson RN
--- NOTE | 2024-10-23 15:50 | HMH.SLMBS2 ---
Speech & Language Evaluation Speech/Language Mod Barium Swallow Start: 10/23/24 10:44 Freq: ONCE Status: Complete Protocol: Document 10/23/24 15:26 [facility] (Rec: 10/23/24 15:49 [facility] laptop) Co-signed By ST Mya General Information General Current Food Consistancy NPO Dentition Good Dentition Oxygen Status Nasal Cannula Patient Orientation Person,Place,Time,Situation Ability to Follow Directions Excellent Communication Ability No Impairment MBS Recommendations Diet Dietary Recommendations Regular,Thin Liquids Treatment/Strategies Strategy/Precaution Recommend Sitting Upright (90 deg), Double Swallow,Small Bites and Sips,Alternate Liquids/Solids Mod Barium Swallow Impressions Summary and Impressions Oral Phase Impression Minimal Impairment Oral Phase Summary Minimal impairment of the pharyngeal phase of swallow. Pt demonstrated adequate labial closure and no bolus pooling was observed on any consistency trialed. Pt was observed to have slowed/ prolonged mastication and manipulation of the bolus 2' weakness. Pt was observed to have adequate lingual movement and residue clearing on all consisetncies trialed. Pharyngeal Phase Impression Minimal Impairment Pharyngeal Phase Summary Minimal impairment of pharyngeal phase of swallow. No aspiration observed on any consistency trialed. Pt was not observed to have any A/P lingual propulsion spills or swallow response delay on any consistency trialed. Hyolaryngeal excursion and elevation and base of tongue retraction was WFL on all consistencies trialed. Trace residue was observed in the vallecula and pharyngeal wall during mechanical soft and regular food trials, which was able to be consistently cleared with subsequent swallow and liquid wash. Barium tablet was administered via thin liquid from open cup and was observed to be WFL. Speech/Language MBS Assessment/Goals/Plan Assessment Date of Evaluation: 10/23/24 Evaluation Type Initial Certification Assessment/Problems recurrent pneumonia per MD order Does Patient Qualify for Service No Qualify/Failure Comment Based on clinical observations made throughout the instrumental assessment (MBSS) , further skilled speech therapy services are not warranted at this time d/t adequate airway protection and mastication and manipulation of the bolus. Recommendations PHYSICIAN CERTIFICATION: The specified therapy services are required, authorized, and reviewed every 30 days. Diet Recommendations Normal Liquid Type Recommendations Normal/Thin SL Swallow Guidelines Alt bite w/sip thru meal, Standard Aspiration Prec.,Eat at slow rate Dysphagia Swallow Precautions/Strategies Sitting Upright (90 deg), Double Swallow,Liquids from Wide Cup,Alternate Liquids/ Solids Plan Pt/Guardian verbally ack understanding Yes of dx/prognosis/goals G -code Required No Education Instructions provided DRAWSTRING KNOTTER discussed clinical observations made throughout instrumental assessment, diet recommendations, and compensatory strategies/ aspiration precautions with pt and MD, each of which expressed understanding. Pt/Caregiver able to recall information Able to recall/restate Reinforcement needed No Mod Barium Swallow Setup Exam Setup Radiologist Donny Lagunas Level of Consciousness Awake,Alert,Appropriate, Follows Commands Mod Barium Swallow-Lat View Textures Lateral View Food Presentation Thin Liquid via Cup,Thin Liquid via Straw,Pureed Food- Thick,Mech. Soft Food- Regular ,Barium Tablet,Regular Food, Pudding Comment All bolus presentations were administered x2 to assess for consistency and fatigue. Oral Phase Labial Closure No Impairment (WFL) Bolus Formation Pooling L/R No Impairment (WFL) Bolus Formation under Tongue No Impairment (WFL) Bolus Formation Scattered Loss No Impairment (WFL) Mastication Rotary Chew Minimal Impairment Mastication Munching Minimal Impairment Mastication Lateralization Minimal Impairment Lingual Movement No Impairment (WFL) Residue Clearing No Impairment (WFL) Pharyngeal Phase A/P Lingual Propulsion Spills No Impairment (WFL) Swallow Response Delay No Impairment (WFL) Base of Tongue No Impairment (WFL) Epiglottic Coverage No Impairment (WFL) Laryngeal Elevation No Impairment (WFL) Vallecular Retention Clearing Minimal Impairment Pharyn. Wall Residue Clearing Minimal Impairment Piriform Sinus Retention No Impairment (WFL) Aspiration? No Silent aspiration? No Mod Barium Swallow-AP View Performed Mod Barium Swallow A/P View Test Not Applicable/Performed PHYSICIAN CERTIFICATION: I certify the specified therapy services for Sarah Hansen are required, authorized, and reviewed every 30 days.
--- NOTE | 2024-10-23 16:22 | EXP.DC.SUM ---
General Admission date:: 10/22/24 HPI HPI HPI: This is a 79-year-old female who with a past medical history of CAD, degenerative disc disease, osteoporosis, HTN and HLD who presents to the emergency department for worsening shortness of breath. She recently underwent kyphoplasty here and had complicated surgical course with aspiration pneumonia shortly after extubation. She was admitted to our ICU here for respiratory distress. She ultimately underwent treatment for aspiration pneumonia and was discharged on 10/21/2024 home on 2 L nasal cannula and 7-day course of cefdinir. She states that she was doing okay at discharge. Had walked with PT in her room without being short of breath. She developed acute onset of shortness of breath today at home with PT and OT. States that she ambulated through her home with PT and OT and had a drop in oxygen saturations into the 70s. Took several minutes to recover her oxygen on her baseline 2 L nasal cannula. Emergency department workup notable for hypoxia on 2 L nasal cannula with increased work of breathing. Laboratory evaluation mostly unremarkable except for mild hypokalemia. BNP of 1500. Chest x-ray with continued hazy opacities. CT imaging negative for PE but notable for patchy groundglass opacities throughout the lungs that could respirated aspiration or pneumonia. Patient did receive IV Lasix in the emergency department for likely pulmonary edema with improvement in respiratory symptoms. Decreased work of breathing noted after Lasix and Solu-Medrol. She is currently oxygenating in the mid 90s on 6 L nasal cannula. At the time of admission she was in no distress and able to speak in full sentences. Exam Data for Last 24 hours Vital signs and Labs for Last 24 Hours: Temp Pulse Resp BP Pulse Ox O2 Del Method O2 Flow Rate 97.5 F L 73 18 144/65 H 96 Nasal Cannula 3 10/23/24 15:35 10/23/24 15:35 10/23/24 15:35 10/23/24 15:35 10/23/24 15:35 10/23/24 15:35 10/23/24 15:35 Laboratory Results - last 24 hr 10/22/24 16:57: VBG pH 7.47 H, VBG pCO2 31.4 L, VBG pO2 65.0 H, VBG HCO3 22.3 L, VBG Total CO2 23.3, VBG O2 Saturation 93.7 H, VBG Base Excess -1.3, VBG Lactic Acid 1.2 10/22/24 17:00: Chlamy pneumoniae PCR Not detected, Adenovirus (PCR) Not detected, B. pertussis DNA (PCR) Not detected, Coronavirus OC43 (PCR) Not detected, Coronavirus HKU1 (PCR) Not detected, Coronavirus 229E (PCR) Not detected, SARS-CoV-2 (PCR) Not detected, Coronavirus NL63 (PCR) Not detected, Human Metapneumovir PCR Not detected, Influenza A (H1) PCR Not detected, Influ A (H1N1/09) PCR Not detected, Influenza A (H3) PCR Not detected, Influenza Type A (PCR) Not detected, Influenza Type B (PCR) Not detected, M. pneumoniae (PCR) Not detected, Parainfluenza 1 (PCR) Not detected, Parainfluenza 2 (PCR) Not detected, Parainfluenza 3 (PCR) Not detected, Parainfluenza 4 (PCR) Not detected, RSV (PCR) Not detected, Entero/Rhino (PCR) Not detected 10/22/24 17:02: PT 9.8, INR 0.88 L, Sodium 137, Potassium 3.3 L, Chloride 106, Carbon Dioxide 26, Anion Gap 8.3, BUN 12, Creatinine 0.30 L D, Estimated Creat Clear 42, Estimated GFR 215, Est GFR ( Amer) 260 D, Glucose 104 H, Calcium 9.1, Magnesium 1.8, Total Bilirubin 1.7 H, AST 86 H D, ALT 76 D, Alkaline Phosphatase 99, Troponin I 0.01, NT-Pro-B Natriuret Pep 1500 H, Total Protein 6.5, Albumin 3.4 L, Globulin 3.1, Albumin/Globulin Ratio 1.1, Procalcitonin 0.380 10/22/24 17:12: WBC 10.2, RBC 3.66 L, Hgb 10.8 L, Hct 30.6 L, MCV 83.6, MCH 29.5, MCHC 35.3, RDW 12.4, Plt Count 188, MPV 10.3, Neut % (Auto) 74.1, Lymph % (Auto) 12.2, [place] % (Auto) 9.3, Eos % (Auto) 1.4, Baso % (Auto) 0.6, Neut # (Auto) 7.5, Lymph # (Auto) 1.2, [place] # (Auto) 0.9, Eos # (Auto) 0.1, Baso # (Auto) 0.1 10/22/24 20:40: Troponin I 0.02 10/22/24 23:15: Troponin I 0.02 10/23/24 01:50: Troponin I 0.02 10/23/24 05:20: WBC 6.7 D, RBC 3.56 L, Hgb 10.3 L, Hct 29.6 L, MCV 83.1, MCH 28.9, MCHC 34.8, RDW 12.4, Plt Count 196, MPV 10.9 H, Neut % (Auto) 85.0 H, Lymph % (Auto) 9.5 L, [place] % (Auto) 3.6, Eos % (Auto) 0.0 L, Baso % (Auto) 0.1, Neut # (Auto) 5.7, Lymph # (Auto) 0.6 L, [place] # (Auto) 0.2, Eos # (Auto) 0.0, Baso # (Auto) 0.0, ESR > 140 H, Sodium 138, Potassium 3.4 L, Chloride 102, Carbon Dioxide 28, Anion Gap 11.4, BUN 12, Creatinine 0.30 L, Estimated Creat Clear 43, Estimated GFR 215, Est GFR ( Amer) 260, Glucose 160 H D, Calcium 8.9, Troponin I < 0.01, C-Reactive Protein 167.1 H 10/23/24 11:10: Troponin I 0.01 I & O for Last 24 hours: Intake & Output 10/20/24 10/21/24 10/22/24 10/23/24 23:59 23:59 23:59 23:59 Intake Total 240 / 240 Output Total 100 / 100 1850 / 1850 Balance -100 / 140 -1610 / -1610 Weight 58.967 kg 59.874 kg Microbiology Reports for the Last 24 Hours: Microbiology 10/23/24 14:00 Sputum - Expectorated Sputum Gram Stain - Final Results Data Completed and Pending Labs on day of discharge: Labs from last 24 hours 10/23/24 10/23/24 10/23/24 11:10 05:20 01:50 WBC 6.7 D RBC 3.56 L Hgb 10.3 L Hct 29.6 L MCV 83.1 MCH 28.9 MCHC 34.8 RDW 12.4 Plt Count 196 MPV 10.9 H Neut % (Auto) 85.0 H Lymph % (Auto) 9.5 L [place] % (Auto) 3.6 Eos % (Auto) 0.0 L Baso % (Auto) 0.1 Neut # (Auto) 5.7 Lymph # (Auto) 0.6 L [place] # (Auto) 0.2 Eos # (Auto) 0.0 Baso # (Auto) 0.0 ESR > 140 H PT INR VBG pH VBG pCO2 VBG pO2 VBG HCO3 VBG Total CO2 VBG O2 Saturation VBG Base Excess VBG Lactic Acid Sodium 138 Potassium 3.4 L Chloride 102 Carbon Dioxide 28 Anion Gap 11.4 BUN 12 Creatinine 0.30 L Estimated Creat Clear 43 Estimated GFR 215 Est GFR ( Amer) 260 Glucose 160 H D Calcium 8.9 Magnesium Total Bilirubin AST ALT Alkaline Phosphatase Troponin I 0.01 < 0.01 0.02 C-Reactive Protein 167.1 H NT-Pro-B Natriuret Pep Total Protein Albumin Globulin Albumin/Globulin Ratio Procalcitonin Chlamy pneumoniae PCR Adenovirus (PCR) B. pertussis DNA (PCR) Coronavirus OC43 (PCR) Coronavirus HKU1 (PCR) Coronavirus 229E (PCR) SARS-CoV-2 (PCR) Coronavirus NL63 (PCR) Human Metapneumovir PCR Influenza A (H1) PCR Influ A (H1N1/09) PCR Influenza A (H3) PCR Influenza Type A (PCR) Influenza Type B (PCR) M. pneumoniae (PCR) Parainfluenza 1 (PCR) Parainfluenza 2 (PCR) Parainfluenza 3 (PCR) Parainfluenza 4 (PCR) RSV (PCR) Entero/Rhino (PCR) 10/22/24 10/22/24 10/22/24 23:15 20:40 17:12 WBC 10.2 RBC 3.66 L Hgb 10.8 L Hct 30.6 L MCV 83.6 MCH 29.5 MCHC 35.3 RDW 12.4 Plt Count 188 MPV 10.3 Neut % (Auto) 74.1 Lymph % (Auto) 12.2 [place] % (Auto) 9.3 Eos % (Auto) 1.4 Baso % (Auto) 0.6 Neut # (Auto) 7.5 Lymph # (Auto) 1.2 [place] # (Auto) 0.9 Eos # (Auto) 0.1 Baso # (Auto) 0.1 ESR PT INR VBG pH VBG pCO2 VBG pO2 VBG HCO3 VBG Total CO2 VBG O2 Saturation VBG Base Excess VBG Lactic Acid Sodium Potassium Chloride Carbon Dioxide Anion Gap BUN Creatinine Estimated Creat Clear Estimated GFR Est GFR ( Amer) Glucose Calcium Magnesium Total Bilirubin AST ALT Alkaline Phosphatase Troponin I 0.02 0.02 C-Reactive Protein NT-Pro-B Natriuret Pep Total Protein Albumin Globulin Albumin/Globulin Ratio Procalcitonin Chlamy pneumoniae PCR Adenovirus (PCR) B. pertussis DNA (PCR) Coronavirus OC43 (PCR) Coronavirus HKU1 (PCR) Coronavirus 229E (PCR) SARS-CoV-2 (PCR) Coronavirus NL63 (PCR) Human Metapneumovir PCR Influenza A (H1) PCR Influ A (H1N1/09) PCR Influenza A (H3) PCR Influenza Type A (PCR) Influenza Type B (PCR) M. pneumoniae (PCR) Parainfluenza 1 (PCR) Parainfluenza 2 (PCR) Parainfluenza 3 (PCR) Parainfluenza 4 (PCR) RSV (PCR) Entero/Rhino (PCR) 10/22/24 10/22/24 10/22/24 17:02 17:00 16:57 WBC RBC Hgb Hct MCV MCH MCHC RDW Plt Count MPV Neut % (Auto) Lymph % (Auto) [place] % (Auto) Eos % (Auto) Baso % (Auto) Neut # (Auto) Lymph # (Auto) [place] # (Auto) Eos # (Auto) Baso # (Auto) ESR PT 9.8 INR 0.88 L VBG pH 7.47 H VBG pCO2 31.4 L VBG pO2 65.0 H VBG HCO3 22.3 L VBG Total CO2 23.3 VBG O2 Saturation 93.7 H VBG Base Excess -1.3 VBG Lactic Acid 1.2 Sodium 137 Potassium 3.3 L Chloride 106 Carbon Dioxide 26 Anion Gap 8.3 BUN 12 Creatinine 0.30 L D Estimated Creat Clear 42 Estimated GFR 215 Est GFR ( Amer) 260 D Glucose 104 H Calcium 9.1 Magnesium 1.8 Total Bilirubin 1.7 H AST 86 H D ALT 76 D Alkaline Phosphatase 99 Troponin I 0.01 C-Reactive Protein NT-Pro-B Natriuret Pep 1500 H Total Protein 6.5 Albumin 3.4 L Globulin 3.1 Albumin/Globulin Ratio 1.1 Procalcitonin 0.380 Chlamy pneumoniae PCR Not detected Adenovirus (PCR) Not detected B. pertussis DNA (PCR) Not detected Coronavirus OC43 (PCR) Not detected Coronavirus HKU1 (PCR) Not detected Coronavirus 229E (PCR) Not detected SARS-CoV-2 (PCR) Not detected Coronavirus NL63 (PCR) Not detected Human Metapneumovir PCR Not detected Influenza A (H1) PCR Not detected Influ A (H1N1/09) PCR Not detected Influenza A (H3) PCR Not detected Influenza Type A (PCR) Not detected Influenza Type B (PCR) Not detected M. pneumoniae (PCR) Not detected Parainfluenza 1 (PCR) Not detected Parainfluenza 2 (PCR) Not detected Parainfluenza 3 (PCR) Not detected Parainfluenza 4 (PCR) Not detected RSV (PCR) Not detected Entero/Rhino (PCR) Not detected DS: Diagnosis Discharge Diagnosis (1) Acute hypoxemic respiratory failure: Status: Acute Code(s): J96.01 - Acute respiratory failure with hypoxia (2) Acute respiratory distress syndrome (ARDS): Status: Acute Code(s): J80 - Acute respiratory distress syndrome (3) Aspiration pneumonitis: Status: Acute Code(s): J69.0 - Pneumonitis due to inhalation of food and vomit (4) Left bundle branch block: Status: Acute Code(s): I44.7 - Left bundle-branch block, unspecified (5) HTN (hypertension): Status: Chronic Code(s): I10 - Essential (primary) hypertension Qualifiers: Hypertension type: essential hypertension Qualified Code(s): I10 - Essential (primary) hypertension (6) HLD (hyperlipidemia): Status: Chronic Code(s): E78.5 - Hyperlipidemia, unspecified Qualifiers: Hyperlipidemia type: mixed hyperlipidemia Qualified Code(s): E78.2 - Mixed hyperlipidemia (7) CAD (coronary artery disease): Status: Chronic Code(s): I25.10 - Atherosclerotic heart disease of [place] coronary artery without angina pectoris Qualifiers: Coronary Disease-Associated Artery/Lesion type: [place] artery [place] vs. transplanted heart: [place] heart Associated angina: without angina Qualified Code(s): I25.10 - Atherosclerotic heart disease of [place] coronary artery without angina pectoris Meds Home Medications and Allergies Home Medications ?Medication ?Instructions ?Recorded ?Confirmed ?Type aspirin 81 mg tablet,delayed 81 mg PO DAILY 04/22/18 10/23/24 History release [id number] 8 mg-folic 400 1 tab PO DAILY supplement 09/17/20 10/23/24 History mcg-K 50 mcg-lutein 300 mcg tablet (Centrum Silver Women) hydrocortisone 2.5 % topical cream 1 applic topical DIRECTED Skin 10/31/21 10/23/24 History Condition gabapentin 100 mg capsule 100 mg PO BIDP PRN nerve pain 05/15/23 10/23/24 History metoprolol succinate 25 mg 25 mg PO DAILY #90 tabs 12/10/23 10/23/24 Rx tablet,extended release 24 hr cholecalciferol (vitamin D3) 75 3,000 unit PO DAILY 03/11/24 10/23/24 History mcg (3,000 unit) tablet bupropion HCl 150 mg tablet,12 hr 150 mg PO DAILY #90 ea 08/12/24 10/23/24 Rx sustained-release omeprazole 20 mg capsule,delayed 20 mg PO DAILY #30 caps 09/11/24 10/23/24 Rx release citalopram 20 mg tablet 20 mg PO DAILY 10/17/24 10/23/24 History losartan 100 mg tablet 100 mg PO DAILY 10/17/24 10/23/24 History atorvastatin 80 mg tablet 80 mg PO HS #30 tabs 10/21/24 10/23/24 Rx cefdinir 300 mg capsule 300 mg PO BID 2 days #4 caps 10/21/24 10/23/24 Rx oxycodone-acetaminophen 7.5 mg-325 1 tab PO Q6HP PRN Moderate Pain 10/21/24 10/23/24 Rx mg tablet (4-6) 3 days #11 tabs New Prescriptions to Start Prescriptions: Allergies Allergy/AdvReac Type Severity Reaction Status Date / Time morphine Allergy Unknown Verified 10/15/24 13:55 allergy reaction propoxyphene (From Darvon) Allergy Unknown Verified 10/15/24 13:55 allergy reaction thimerosal (From Merthiolate Allergy Unknown Verified 10/15/24 13:55 (thimerosal)) allergy reaction Discharge Plan Disposition Condition: Serious Follow up Plan Prescriptions/Medication Reconciliation: No Action cholecalciferol (vitamin D3) 75 mcg (3,000 unit) tablet 3,000 unit PO DAILY Centrum Silver Women 8 mg iron-400 mcg-300 mcg tablet 1 tab PO DAILY gabapentin 100 mg capsule 100 mg PO BIDP PRN (Reason: nerve pain) hydrocortisone 2.5 % cream 1 applic TOPICAL DIRECTED metoprolol succinate 25 mg tablet extended release 24 hr 25 mg PO DAILY Qty: 90 3RF bupropion HCl 150 mg tablet sustained-release 12 hr 150 mg PO DAILY Qty: 90 1RF omeprazole 20 mg capsule,delayed release(DR/EC) 20 mg PO DAILY Qty: 30 3RF aspirin 81 MG tablet,delayed release (DR/EC) 81 mg PO DAILY citalopram 20 mg tablet 20 mg PO DAILY losartan 100 mg tablet 100 mg PO DAILY atorvastatin 80 mg tablet 80 mg PO HS Qty: 30 0RF oxycodone-acetaminophen 7.5-325 mg Tablet 1 tab PO Q6HP PRN (Reason: Moderate Pain (4-6)) 3 Days Qty: 11 0RF cefdinir 300 mg capsule 300 mg PO BID 2 Days Qty: 4 0RF Patient Discharge Instructions Patient Instructions: DI for Aspiration Pneumonia, DI for Cardiac Catheterization, DI for Surgical Site Infection, DI for Respiratory Failure, DI for Respiratory Distress Syndrome -- Adult Print Language: Hebrew Providers Primary Care Provider: Jeancarlos Santizo Admit Provider: Wayne Plummer Attending Provider: Wayne Plummer
[2024-10-23] MEDS: PANTOPRAZOLE 40MG TABLET 40 MG PO (20:43)
--- NOTE | 2024-10-23 21:51 | EXP.PN ---
Subjective *Date: 10/23/24 *Time: 21:51 Interval history: Patient was doing well this morning, she felt she was back to baseline. However, felt weaker after LHC and barium swallow study. Sputum culture positive, will consult pulm and obtain blood cultures. Exam Data for Last 24 hours Vital signs and Labs for Last 24 Hours: Temp Pulse Resp BP Pulse Ox O2 Del Method O2 Flow Rate 97.6 F 77 18 114/59 L 93 L Nasal Cannula 3 10/23/24 19:05 10/23/24 19:05 10/23/24 19:05 10/23/24 19:05 10/23/24 19:05 10/23/24 19:05 10/23/24 19:05 Laboratory Results - last 24 hr 10/22/24 23:15: Troponin I 0.02 10/23/24 01:50: Troponin I 0.02 10/23/24 05:20: WBC 6.7 D, RBC 3.56 L, Hgb 10.3 L, Hct 29.6 L, MCV 83.1, MCH 28.9, MCHC 34.8, RDW 12.4, Plt Count 196, MPV 10.9 H, Neut % (Auto) 85.0 H, Lymph % (Auto) 9.5 L, [place] % (Auto) 3.6, Eos % (Auto) 0.0 L, Baso % (Auto) 0.1, Neut # (Auto) 5.7, Lymph # (Auto) 0.6 L, [place] # (Auto) 0.2, Eos # (Auto) 0.0, Baso # (Auto) 0.0, ESR > 140 H, Sodium 138, Potassium 3.4 L, Chloride 102, Carbon Dioxide 28, Anion Gap 11.4, BUN 12, Creatinine 0.30 L, Estimated Creat Clear 43, Estimated GFR 215, Est GFR ( Amer) 260, Glucose 160 H D, Calcium 8.9, Troponin I < 0.01, C-Reactive Protein 167.1 H 10/23/24 11:10: Troponin I 0.01 I & O for Last 24 hours: Intake & Output 10/20/24 10/21/24 10/22/24 10/23/24 23:59 23:59 23:59 23:59 Intake Total 620 / 620 Output Total 100 / 100 1850 / 1850 Balance -100 / 140 -1230 / -1230 Weight 58.967 kg 59.874 kg Microbiology Reports for the Last 24 Hours: Microbiology 10/23/24 14:00 Sputum - Expectorated Sputum Gram Stain - Final Constitutional Constitutional: no acute distress *Routine HEENT Exam Head: Present normocephalic Eye: Present EOMI and PERRL ENT: Present mucous membranes moist *Routine Neck Exam Neck: Present supple; Absent lymphadenopathy *Routine Respiratory Exam Respiratory: Present crackles; Absent CTA bilaterally *Routine Cardiovascular Exam Cardiovascular: Present RRR *Routine Abdominal Exam Abdominal: Present soft and normoactive bowel sounds; Absent tenderness *Routine Extremities Exam Extremities: Absent cyanosis, clubbing or edema *Routine Skin Exam Skin: Present warm; Absent rash *Routine Neurological Exam Neurological: Present alert and oriented X3 Assessment and Plan *Assessment and plan (1) Acute hypoxemic respiratory failure: Status: Acute Category: Medical Code(s): J96.01 - Acute respiratory failure with hypoxia (2) HTN (hypertension): Status: Chronic Qualifiers: Hypertension type: essential hypertension Qualified Code(s): I10 - Essential (primary) hypertension Category: Medical Code(s): I10 - Essential (primary) hypertension (3) HLD (hyperlipidemia): Status: Chronic Qualifiers: Hyperlipidemia type: mixed hyperlipidemia Qualified Code(s): E78.2 - Mixed hyperlipidemia Category: Medical Code(s): E78.5 - Hyperlipidemia, unspecified (4) Chronic back pain: Status: Acute Qualifiers: Back pain location: back pain in unspecified location Category: Medical Code(s): M54.9 - Dorsalgia, unspecified; G89.29 - Other chronic pain Plan Sarah Hansen is a 79 year old female who was admitted for acute hypoxic respiratory failure from suspected aspiration pneumonitis. #Acute respiratory failure with hypoxia #Aspiration pneumonia - Chest imaging concerning for continued aspiration pneumonia. However, no leukocytosis, fevers, and vitals stable. Procal also normal. - Presentation initially seemed more consistent with aspiration pneumonitis. - However, sputum culture showing rare gram positive cocci. Will start Vancomycin pending speciation. - Continues to have diffuse crackle. - Recently discharged with similar presentation and was doing well on 2 L, presented with 4L. - Patient was feeling much better this morning after overnight breathing treatments and Lasix. - However, she was feel much weaker after LHC and barium swallow study this afternoon. Both were unremarkable. - Started Vancomycin as above. Follow-up sputum, blood cultures. - Continue cefdinir for now, pending pulm recommendations. - Pulmonology consulted given likely conversion from pneumonitis to pneumonia with positive sputum culture. - Speech therapy consulted, barium swallow study normal today. #[facility] Cardiology consulted overnight, spoke with Dr. Melisa Montgomery, noted on repeat prior EKGs. LHC unremarkable today. #HTN #HLD Continue home medication #Chronic pain #Recent kyphoplasty Continue multimodal pain medication
[2024-10-24] VITALS: BP 132/61; PULSE 59; PULSE 60; RESP 16; TEMP 36.6; O2SAT 94
[2024-10-24] MEDS: VANCOMYCIN HCL 1,000 MG in 0.9 % SODIUM CHLORIDE 250 ML 125 MG IV (01:20)
[2024-10-24] MEDS: VANCOMYCIN CONSULT REQUEST 1 EACH NOTAPPLIC (01:20)
[2024-10-24 04:00] VITALS: BP 142/67; PULSE 50; PULSE 66; RESP 18; TEMP 36.7; O2SAT 94; BMI 25.7
[2024-10-24 08:00] VITALS: BP 147/77; PULSE 77; RESP 20; TEMP 36.7; O2SAT 92
--- NOTE | 2024-10-24 08:16 | EXP.PHA.CONS ---
Pharmacy Consult Date: 10/24/24 Time: 08:16 Referring provider: SHAUN Reason for Consult:: CONSULTED TO INITIATE AND MANAGE VANCOMYCIN THERAPY Allergies Allergy/AdvReac Type Severity Reaction Status Date / Time morphine Allergy Unknown Verified 10/15/24 13:55 allergy reaction propoxyphene (From Darvon) Allergy Unknown Verified 10/15/24 13:55 allergy reaction thimerosal (From Merthiolate Allergy Unknown Verified 10/15/24 13:55 (thimerosal)) allergy reaction Home Medications ?Medication ?Instructions ?Recorded ?Confirmed ?Type aspirin 81 mg tablet,delayed 81 mg PO DAILY 04/22/18 10/23/24 History release lhiycyte-icbo-owee 8 mg-folic 400 1 tab PO DAILY supplement 09/17/20 10/23/24 History mcg-K 50 mcg-lutein 300 mcg tablet (Centrum Silver Women) hydrocortisone 2.5 % topical cream 1 applic topical DIRECTED Skin 10/31/21 10/23/24 History Condition gabapentin 100 mg capsule 100 mg PO BIDP PRN nerve pain 05/15/23 10/23/24 History metoprolol succinate 25 mg 25 mg PO DAILY #90 tabs 12/10/23 10/23/24 Rx tablet,extended release 24 hr cholecalciferol (vitamin D3) 75 3,000 unit PO DAILY 03/11/24 10/23/24 History mcg (3,000 unit) tablet bupropion HCl 150 mg tablet,12 hr 150 mg PO DAILY #90 ea 08/12/24 10/23/24 Rx sustained-release omeprazole 20 mg capsule,delayed 20 mg PO DAILY #30 caps 09/11/24 10/23/24 Rx release citalopram 20 mg tablet 20 mg PO DAILY 10/17/24 10/23/24 History losartan 100 mg tablet 100 mg PO DAILY 10/17/24 10/23/24 History atorvastatin 80 mg tablet 80 mg PO HS #30 tabs 10/21/24 10/23/24 Rx cefdinir 300 mg capsule 300 mg PO BID 2 days #4 caps 10/21/24 10/23/24 Rx oxycodone-acetaminophen 7.5 mg-325 1 tab PO Q6HP PRN Moderate Pain 10/21/24 10/23/24 Rx mg tablet (4-6) 3 days #11 tabs New Prescriptions to Start Prescriptions: Height: 1.5 m Weight: 58.06 kg Laboratory Results:: Laboratory Results - last 24 hr 10/23/24 11:10: Troponin I 0.01 Medical History: Medical History (Updated 10/22/24 @ 21:51 by JOCELYN Corcoran) Pneumonia Thyroid nodule Memory loss Ataxia, unspecified Lumbago with sciatica, left side Primary generalized (osteo)arthritis Vitamin D deficiency, unspecified Abnormal electrocardiogram [ECG] [EKG] Fibromyalgia Abnormal EKG Diastolic dysfunction HTN (hypertension) HLD (hyperlipidemia) Gastroesophageal reflux disease Assessment and Plan Assessment and plan all Dx Assessment and Plan for all problems:: PT RECV'D VANCOMYCIN 1GM THIS AM @0130. WILL CONTINUE VANCOMYCIN 1250MG IV EVERY 24 HOURS, FIRST DOSE TONIGHT AT 2100. PT ALSO ON CEFDINIR 300MG TWICE DAILY. PHARMACY WILL FOLLOW DAILY AND ADJUST NECESSARY LONG VANCOMYCIN CONTINUES. THANKS
[2024-10-24] MEDS: buPROPion HCl SR 150MG TAB 150 MG PO (08:46)
[2024-10-24] MEDS: ASPIRIN EC 81MG TABLET 81 MG PO (08:46)
[2024-10-24] MEDS: CEFDINIR 300MG CAPSULE 300 MG PO (08:46)
[2024-10-24] MEDS: METOPROLOL SUCCINATE XL 25MG TABLET 25 MG PO (08:46)
[2024-10-24] MEDS: IRBESARTAN 150MG TAB 150 MG PO (08:47)
[2024-10-24 08:54] LABS: Basophils % 0.3 % (0.1-2.0); Eosinophils # 0.3 K/mm3 (0.0-0.4); Eosinophils % 3.3 % (0.1-12.0); Hematocrit 31.3 % (37.0-47.0); Hemoglobin 10.9 g/dL (12.2-16.2); Lymphocytes # 1.3 K/mm3 (0.7-4.5); Lymphocytes % 16.3 % (10-50); Mean Corpuscular HGB Conc 34.8 g/dL (31.8-35.4); Mean Corpuscular Hemoglobin 29.4 pg (27.0-31.2); Mean Corpuscular Volume 84.4 fl (81-99); Mean Platelet Volume 10.6 fl (7.4-10.4); Monocytes # 0.7 K/mm3 (0.1-1.0); Monocytes % 8.5 % (1.7-9.3); Neutrophils # 5.4 K/mm3 (1.8-7.8); Neutrophils % 69.5 % (37.0-80.0); Platelet Count 208 K/mm3 (142-424); Red Blood Count 3.71 M/mm3 (4.20-5.40); Red Cell Distribution Width 12.6 % (11.5-17.5); White Blood Count 7.8 K/mm3 (4.8-10.8)
[2024-10-24 08:56] LABS: Alanine Aminotransferase 165 U/L (12-78); Albumin Level 3.1 g/dl (3.5-5.0); Albumin/Globulin Ratio 1.1 (1.1-1.8); Alkaline Phosphatase 75 U/L (38-126); Anion Gap 8.9 mEq/L (5-15); Aspartate Amino Transferase 140 U/L (14-36); Bilirubin,Total 0.6 mg/dl (0.2-1.3); Blood Urea Nitrogen 23 mg/dl (7-17); Calcium 8.9 mg/dl (8.4-10.2); Carbon Dioxide 32 mmol/L (22.0-30.0); Chloride 103 mmol/L (98-107); Creatinine Clearance Estimated 42 mL/min (50-200); Estimated Glomerular Filt Rate 154 ml/min (>60); GFR (African American) 186 ML/MIN (>60); Globulin 2.8 g/dL (1.3-3.2); Glucose 94 mg/dl (74-100); Sodium 141 mmol/L (136-145); Total Protein,Serum 5.9 g/dl (6.3-8.2)
[2024-10-24 08:58] LABS: Potassium 2.9 mmoL/L (3.5-5.1)
--- NOTE | 2024-10-24 10:00 | EXP.PULM.CON ---
History of Present Illness History of present illness: Ms. Hansen is a 79-year-old female no significant smoking is no prior respiratory complaints recently with episode of aspiration event status post intubation and mechanical ventilator support extubated discharged home on 2 L nasal cannula oxygen supplementation presented to the ER again with worsening respiratory send pulmonary was called for evaluation and management. Patient admits gradual worsening respiratory distress. Acute admission was primarily prompted by patient exhibiting noted with desaturations to 70% at home with home health the day after discharge. [facility] Disclaimer: The information contained in this section may have been updated after the patient was seen, as this information can be updated by other users. Medical History (Updated 10/24/24 @ 13:45 by Nella Martinez MD) ARDS (adult respiratory distress syndrome) Pneumonia Thyroid nodule Memory loss Ataxia, unspecified Lumbago with sciatica, left side Primary generalized (osteo)arthritis Vitamin D deficiency, unspecified Abnormal electrocardiogram [ECG] [EKG] Fibromyalgia Abnormal EKG Diastolic dysfunction HTN (hypertension) HLD (hyperlipidemia) Gastroesophageal reflux disease Surgical History History of tonsillectomy Presence of artificial knee joint, bilateral History of cholecystectomy H/O total hysterectomy Family History Other Family history of Alzheimer disease Family history of cancer Social History Smoking Status: Never smoker second hand exposure: No alcohol intake: never substance use type: denies use current occupational status: other Travel in the last 8 weeks: Outside the [facility] household members: spouse housing: house current occupational exposures/hazards: No caffeine: Yes Have you lived/traveled outside [place] in past 30 days?: No Contact w/someone who lives/traveled outside US past 30 days?: No Exposure to someone with infectious disease in past 14 days?: No Do you have a fever (greater than 100.4 F or 38 C)?: No Have you tested positive for COVID-19: No Exposed to someone with COVID-19 in past 14 days?: No Do you have a sore throat?: No Do you have a cough?: No Do you have any weakness?: Yes Do you have any diarrhea?: No Are you experiencing any unusual bleeding?: No Do you have any muscle aches/pain?: No Do you have any abdominal pain?: No Are you experiencing loss of taste or smell?: No Review of Systems Constitutional Constitutional: Denies anorexia, Denies body ache(s) and Denies fatigue Eyes Eyes: Denies eye discharge, Denies dry eyes, Denies irritation and Denies itchy eyes ENT Ears, Nose, Mouth, and Throat: Denies epistaxis, Denies facial pain, Denies lip swelling and Denies throat swelling *Cardiovascular Cardiovascular: Reports dyspnea and Reports dyspnea on exertion *Respiratory Respiratory: Denies change in phlegm color, Reports chest congestion, Reports cough, Reports dyspnea, Reports dyspnea on exertion, Denies excessive phlegm production, Denies hemoptysis, Denies pain on inspiration, Denies pain with cough and Denies wheezing *Gastrointestinal Gastrointestinal: Denies abdominal pain, Denies belching and Denies cramping *Musculoskeletal Musculoskeletal: Reports back pain, Reports myalgias and Reports other (No small joint swelling or Pain) Psychiatric Psychiatric: Denies homicidal ideation and Denies suicidal ideation Endocrine Endocrine: Denies fatigue and Denies heat intolerance Hematologic/Lymphatic Hematologic/Lymphatic: Denies easy bleeding and Denies lymphadenopathy Allergic/Immunologic Allergic/Immunologic: Denies itchy eyes, Denies lip swelling, Denies throat swelling and Denies wheezing Pulmonology Exam Inpatient Vital signs and Labs for Last 24 Hours: Temp Pulse Resp BP Pulse Ox O2 Del Method O2 Flow Rate 98.1 F 66 18 142/67 H 94 L Nasal Cannula 3 10/24/24 04:00 10/24/24 04:00 10/24/24 04:00 10/24/24 04:00 10/24/24 04:00 10/24/24 08:00 10/24/24 08:00 Laboratory Results - last 24 hr 10/23/24 11:10: Troponin I 0.01 10/24/24 08:32: WBC 7.8, RBC 3.71 L, Hgb 10.9 L, Hct 31.3 L, MCV 84.4, MCH 29.4, MCHC 34.8, RDW 12.6, Plt Count 208, MPV 10.6 H, Neut % (Auto) 69.5, Lymph % (Auto) 16.3, [place] % (Auto) 8.5, Eos % (Auto) 3.3, Baso % (Auto) 0.3, Neut # (Auto) 5.4, Lymph # (Auto) 1.3, [place] # (Auto) 0.7, Eos # (Auto) 0.3, Baso # (Auto) 0.0, Sodium 141, Potassium 2.9 L*, Chloride 103, Carbon Dioxide 32 H, Anion Gap 8.9, BUN 23 H D, Creatinine 0.40 L D, Estimated Creat Clear 42, Estimated GFR 154, Est GFR ( Amer) 186 D, Glucose 94, Calcium 8.9, Magnesium 2.0 D, Total Bilirubin 0.6, AST 140 H D, ALT 165 H D, Alkaline Phosphatase 75, Total Protein 5.9 L, Albumin 3.1 L, Globulin 2.8, Albumin/Globulin Ratio 1.1 I & O for Labs for Last 24 Hours: Intake & Output 10/21/24 10/22/24 10/23/24 10/24/24 23:59 23:59 23:59 23:59 Intake Total 620 / 620 250 / 250 Output Total 100 / 100 1850 / 1850 400 / 400 Balance -100 / 140 -1230 / -1230 -150 / -150 Weight 130 lb 132 lb 128 lb Microbiology Reports for the Last 24 Hours: Microbiology 10/23/24 14:00 Sputum - Expectorated Sputum Gram Stain - Final Constitutional: Present moderate distress Head: Present normocephalic and atraumatic ENT: Present normal exam, normal oropharynx and mucous membranes moist Neck: Present normal inspection and full ROM Respiratory: Present respiratory distress, rhonchi and able to speak in complete sentences; Absent wheezes or crackles Cardiac: Present S1/S2, Tachycardia and radial pulses present GI: Present soft and distention; Absent tenderness or guarding Rectal (female): Present deferred (female): Present deferred Skin: Present intact; Absent cyanosis or jaundice Neuro: Present alert, awake and oriented x 3 Extremities: Present normal inspection; Absent clubbing or cyanosis Psychiatric: Present normal affect and cooperative Meds Home Medications and Allergies Home Medications ?Medication ?Instructions ?Recorded ?Confirmed ?Type aspirin 81 mg tablet,delayed 81 mg PO DAILY 04/22/18 10/23/24 History release [id number] 8 mg-folic 400 1 tab PO DAILY supplement 09/17/20 10/23/24 History mcg-K 50 mcg-lutein 300 mcg tablet ([facility]) hydrocortisone 2.5 % topical cream 1 applic topical DIRECTED Skin 10/31/21 10/23/24 History Condition gabapentin 100 mg capsule 100 mg PO BIDP PRN nerve pain 05/15/23 10/23/24 History metoprolol succinate 25 mg 25 mg PO DAILY #90 tabs 12/10/23 10/23/24 Rx tablet,extended release 24 hr cholecalciferol (vitamin D3) 75 3,000 unit PO DAILY 03/11/24 10/23/24 History mcg (3,000 unit) tablet bupropion HCl 150 mg tablet,12 hr 150 mg PO DAILY #90 ea 08/12/24 10/23/24 Rx sustained-release omeprazole 20 mg capsule,delayed 20 mg PO DAILY #30 caps 09/11/24 10/23/24 Rx release citalopram 20 mg tablet 20 mg PO DAILY 10/17/24 10/23/24 History losartan 100 mg tablet 100 mg PO DAILY 10/17/24 10/23/24 History atorvastatin 80 mg tablet 80 mg PO HS #30 tabs 10/21/24 10/23/24 Rx cefdinir 300 mg capsule 300 mg PO BID 2 days #4 caps 10/21/24 10/23/24 Rx oxycodone-acetaminophen 7.5 mg-325 1 tab PO Q6HP PRN Moderate Pain 10/21/24 10/23/24 Rx mg tablet (4-6) 3 days #11 tabs New Prescriptions to Start Prescriptions: Allergies Allergy/AdvReac Type Severity Reaction Status Date / Time morphine Allergy Unknown Verified 10/15/24 13:55 allergy reaction propoxyphene (From Darvon) Allergy Unknown Verified 10/15/24 13:55 allergy reaction thimerosal (From Merthiolate Allergy Unknown Verified 10/15/24 13:55 (thimerosal)) allergy reaction Results Laboratory Findings 10/24/24 08:32 10/24/24 08:32 PT/INR, D-dimer PT 9.8 seconds (9.2-12.1) 10/22/24 17:02 INR 0.88 (0.9-1.1) L 10/22/24 17:02 Abnormal lab findings: Abnormal Labs 10/22/24 10/22/24 10/22/24 16:57 17:02 17:12 RBC 3.66 L Hgb 10.8 L Hct 30.6 L MPV Neut % (Auto) Lymph % (Auto) Eos % (Auto) Lymph # (Auto) ESR INR 0.88 L VBG pH 7.47 H VBG pCO2 31.4 L VBG pO2 65.0 H VBG HCO3 22.3 L VBG O2 Saturation 93.7 H Potassium 3.3 L Carbon Dioxide BUN Creatinine 0.30 L D Glucose 104 H Total Bilirubin 1.7 H AST 86 H D ALT C-Reactive Protein NT-Pro-B Natriuret Pep 1500 H Total Protein Albumin 3.4 L 10/23/24 10/24/24 05:20 08:32 RBC 3.56 L 3.71 L Hgb 10.3 L 10.9 L Hct 29.6 L 31.3 L MPV 10.9 H 10.6 H Neut % (Auto) 85.0 H Lymph % (Auto) 9.5 L Eos % (Auto) 0.0 L Lymph # (Auto) 0.6 L ESR > 140 H INR VBG pH VBG pCO2 VBG pO2 VBG HCO3 VBG O2 Saturation Potassium 3.4 L 2.9 L* Carbon Dioxide 32 H BUN 23 H D Creatinine 0.30 L 0.40 L D Glucose 160 H D Total Bilirubin AST 140 H D ALT 165 H D C-Reactive Protein 167.1 H NT-Pro-B Natriuret Pep Total Protein 5.9 L Albumin 3.1 L Assessment and Plan *Assessment and plan (1) Acute hypoxemic respiratory failure: Status: Acute Category: Medical Code(s): J96.01 - Acute respiratory failure with hypoxia (2) ARDS (adult respiratory distress syndrome): Status: Acute Category: Medical Code(s): J80 - Acute respiratory distress syndrome Plan Ms. Hansen is a 79-year-old female no significant smoking is no prior respiratory complaints recently with episode of aspiration event status post intubation and mechanical ventilator support extubated discharged home on 2 L nasal cannula oxygen supplementation presented to the ER again with worsening respiratory send pulmonary was called for evaluation and management. Patient admits gradual worsening respiratory distress. Acute admission was primarily prompted by patient exhibiting noted with desaturations to 70% at home with home health the day after discharge. CTA upon admission no evidence of pulmonary embolism. Bilateral diffuse patchy airspace disease noted. Also noted to have bilateral effusions. Receiving diuretics with improving oxygen from 6 L upon admission to 3 to 4 L. Continue to receive subtended. Aspiration events noted on barium swallow evaluation. Afebrile. Hemodynamically stable. No evidence of leukocytosis. Repeat sputum cultures growing gram-positive cocci. Blood cultures pending so far. Procalcitonin improving from prior. CRP relatively stable. Plan:: Change antibiotic to Augmentin to complete a total of 5-day course starting today Initiate prednisone 40 mg daily x 7 days 6-minute walk testing prior to discharge DuMeerabs 4 times daily. Continue oxygen supplementation to maintain O2 saturation below 90% and above next
[2024-10-24] MEDS: predniSONE 20MG TAB 40 MG PO (11:15)
[2024-10-24] MEDS: AMOXICILLIN/CLAVULANATE POTASSIUM 875/125MG TABLET 1 EACH PO (11:16)
[2024-10-24] MEDS: POTASSIUM CHLORIDE 20MEQ TAB 40 MEQ PO ×3 (11:16→17:56)
[2024-10-24 11:39] VITALS: BP 174/67; PULSE 70; RESP 20; TEMP 36.7; O2SAT 95
--- NOTE | 2024-10-24 14:00 | PC.NURSE ---
pt ambulated with walker and x1 assist in the blak[place] estimatedly 50 feet. pt tolerated ambulation well with no oxygen and no SOB upon exertion. O2 saturation was at 88-89 percent on room air. pt placed back on 2 liters nasal cannula. pt O2 saturation is now 95 %.
[2024-10-24 14:34] VITALS: BMI 25.7
--- NOTE | 2024-10-24 15:34 | P.DS_ITS ---
General Admission date:: 10/22/24 Hospital Course Hospital Course Hospital Course: Sarah Hansen is a 79 year old female who was admitted for acute hypoxic respiratory failure from suspected aspiration pneumonia. During aspirated during a routine kyphoplasty procedure leading to last hospitalization a week ago requiring intubation. #Acute respiratory failure with hypoxia #Aspiration pneumonia - Initial chest imaging concerning for aspiration pneumonia, though stable from previos CXR. No leukocytosis, fevers, and vitals stable. Procal also normal. - Presentation initially seemed more consistent with aspiration pneumonitis. - Speech therapy consulted, modified barium swallow study did not show ongoing aspiration. - However, sputum culture showing rare gram positive cocci. Started Vancomycin pending speciation. - Pulmonology consulted, started prednisone and Augmentin. - Clinically improved with one time dose of Lasix, steroids, antibiotics. - Six minute walk test with acceptable saturations with a low of 88% but good recovery to 90%. Back to 2 L nasal cannula. Discharged with prednisone Augmentin. Will follow-up with pulmonology. - [facility] home health. #LBBB - Elevated troponins last admission up to 0.04. - Cardiology consulted, s/p LHC showing non-occlusive CAD. #Hypokalemia - As low as 2.9 after diuresis, s/p repletion. #HTN #HLD - Continue home medication #Chronic pain #Recent kyphoplasty - Continue home Casey. Total time spent on discharge: 32 minutes on chart review, counseling, documentation, and direct care with patient. Exam Data for Last 24 hours Vital signs and Labs for Last 24 Hours: Temp Pulse Resp BP Pulse Ox O2 Del Method O2 Flow Rate 98.0 F 70 20 174/67 H 95 Nasal Cannula 2 10/24/24 11:39 10/24/24 11:39 10/24/24 11:39 10/24/24 11:39 10/24/24 11:39 10/24/24 13:00 10/24/24 11:39 Laboratory Results - last 24 hr 10/24/24 08:32: WBC 7.8, RBC 3.71 L, Hgb 10.9 L, Hct 31.3 L, MCV 84.4, MCH 29.4, MCHC 34.8, RDW 12.6, Plt Count 208, MPV 10.6 H, Neut % (Auto) 69.5, Lymph % ( Auto) 16.3, [place] % (Auto) 8.5, Eos % (Auto) 3.3, Baso % (Auto) 0.3, Neut # (Auto) 5.4, Lymph # (Auto) 1.3, [place] # (Auto) 0.7, Eos # (Auto) 0.3, Baso # (Auto) 0.0, Sodium 141, Potassium 2.9 L*, Chloride 103, Carbon Dioxide 32 H, Anion Gap 8.9, BUN 23 H D, Creatinine 0.40 L D, Estimated Creat Clear 42, Estima [place] GFR 154, Est GFR ( Amer) 186 D, Glucose 94, Calcium 8.9, Magnesium 2.0 D, Total Bilirubin 0.6, AST 140 H D, ALT 165 H D, Alkaline Phosphatase 75, Total Protein 5.9 L, Albumin 3.1 L, Globulin 2.8, Albumin/Globulin Ratio 1.1 I & O for Last 24 hours: Intake & Output 10/21/24 10/22/24 10/23/24 10/24/24 23:59 23:59 23:59 23:59 Intake Total 620 / 620 785 / 785 Output Total 100 / 100 1850 / 1850 400 / 400 Balance -100 / 140 -1230 / -1230 385 / 385 Weight 58.967 kg 59.874 kg 58 kg Microbiology Reports for the Last 24 Hours: Microbiology 10/23/24 14:00 Sputum - Expectorated Sputum Gram Stain - Final Constitutional Constitutional: no acute distress *Routine HEENT Exam Head: Present normocephalic Eye: Present EOMI and PERRL ENT: Present mucous membranes moist *Routine Neck Exam Neck: Present supple; Absent lymphadenopathy *Routine Respiratory Exam Respiratory: Present crackles; Absent CTA bilaterally *Routine Cardiovascular Exam Cardiovascular: Present RRR *Routine Abdominal Exam Abdominal: Present soft and normoactive bowel sounds; Absent tenderness *Routine Extremities Exam Extremities: Absent cyanosis, clubbing or edema *Routine Skin Exam Skin: Present warm; Absent rash *Routine Neurological Exam Neurological: Present alert and oriented X3 Results Data Completed and Pending Labs on day of discharge: Labs from last 24 hours 10/24/24 08:32 WBC 7.8 RBC 3.71 L Hgb 10.9 L Hct 31.3 L MCV 84.4 MCH 29.4 MCHC 34.8 RDW 12.6 Plt Count 208 MPV 10.6 H Neut % (Auto) 69.5 Lymph % (Auto) 16.3 [place] % (Auto) 8.5 Eos % (Auto) 3.3 Baso % (Auto) 0.3 Neut # (Auto) 5.4 Lymph # (Auto) 1.3 [place] # (Auto) 0.7 Eos # (Auto) 0.3 Baso # (Auto) 0.0 Sodium 141 Potassium 2.9 L* Chloride 103 Carbon Dioxide 32 H Anion Gap 8.9 BUN 23 H D Creatinine 0.40 L D Estimated Creat Clear 42 Estimated GFR 154 Est GFR ( Amer) 186 D Glucose 94 Calcium 8.9 Magnesium 2.0 D Total Bilirubin 0.6 AST 140 H D ALT 165 H D Alkaline Phosphatase 75 Total Protein 5.9 L Albumin 3.1 L Globulin 2.8 Albumin/Globulin Ratio 1.1 DS: Diagnosis Discharge Diagnosis (1) Acute hypoxemic respiratory failure: Status: Acute Code(s): J96.01 - Acute respiratory failure with hypoxia (2) ARDS (adult respiratory distress syndrome): Status: Acute Code(s): J80 - Acute respiratory distress syndrome Meds Home Medications and Allergies Home Medications ?Medication ?Instructions ?Recorded ?Confirmed ?Type aspirin 81 mg tablet,delayed 81 mg PO DAILY 04/22/18 10/31/24 History release [id number]-hdjn-[id number] 8 mg-folic 400 1 tab PO DAILY supplement 09/17/20 10/31/24 History mcg-K 50 mcg-lutein 300 mcg tablet (Centrum Silver Women) hydrocortisone 2.5 % topical cream 1 applic topical DIRECTED Skin 10/31/21 10/31/24 History Condition gabapentin 100 mg capsule 100 mg PO BIDP PRN nerve pain 05/15/23 10/31/24 History metoprolol succinate 25 mg 25 mg PO DAILY #90 tabs 12/10/23 10/31/24 Rx tablet,extended release 24 hr cholecalciferol (vitamin D3) 75 3,000 unit PO DAILY 03/11/24 10/31/24 History mcg (3,000 unit) tablet bupropion HCl 150 mg tablet,12 hr 150 mg PO DAILY #90 ea 08/12/24 10/31/24 Rx sustained-release omeprazole 20 mg capsule,delayed 20 mg PO DAILY #30 caps 09/11/24 10/31/24 Rx release citalopram 20 mg tablet 20 mg PO DAILY 10/17/24 10/31/24 History losartan 100 mg tablet 100 mg PO DAILY 10/17/24 10/31/24 History atorvastatin 80 mg tablet 80 mg PO HS #30 tabs 10/21/24 10/31/24 Rx oxycodone-acetaminophen 7.5 mg-325 1 tab PO Q6HP PRN Moderate Pain 10/21/24 10/31/24 Rx mg tablet (4-6) 3 days #11 tabs amoxicillin 875 mg-potassium 1 tab PO BID 5 days #10 tabs 10/24/24 10/31/24 Rx clavulanate 125 mg tablet prednisone 20 mg tablet 40 mg (2 x 20 mg) PO DAILY 6 days 10/24/24 10/31/24 Rx #12 tabs New Prescriptions to Start Prescriptions: amoxicillin-pot clavulanate Wayne Plummer prednisone Wayne Plummer Allergies Allergy/AdvReac Type Severity Reaction Status Date / Time morphine Allergy Unknown Verified 10/28/24 13:53 allergy reaction propoxyphene (From Darvon) Allergy Unknown Verified 10/28/24 13:53 allergy reaction thimerosal (From Merthiolate Allergy Unknown Verified 10/28/24 13:53 (thimerosal)) allergy reaction Discharge Plan Disposition Patient Disposition: Home Health Service Condition: Fair Discharge Order Discharge Orders: Discharge Order (Routine); Ordered 10/24/24 Ordered By: Wayne Plummer Follow up Plan Follow up with: Jeancarlos Santizo MD [Primary Care Provider] - 10/28/24 1:00 pm Nella Martinez MD [Physician] - Enter time for follow up (please call the office for follow up appointment. ) Prescriptions/Medication Reconciliation: New prednisone 20 mg Tablet 40 mg PO DAILY 6 Days Qty: 12 0RF amoxicillin-pot clavulanate 875-125 mg Tablet 1 tab PO BID 5 Days Qty: 10 0RF Continued cholecalciferol (vitamin D3) 75 mcg (3,000 unit) tablet 3,000 unit PO DAILY Centrum Silver Women 8 mg iron-400 mcg-300 mcg tablet 1 tab PO DAILY gabapentin 100 mg capsule 100 mg PO BIDP PRN (Reason: nerve pain) hydrocortisone 2.5 % cream 1 applic TOPICAL DIRECTED metoprolol succinate 25 mg tablet extended release 24 hr 25 mg PO DAILY Qty: 90 3RF bupropion HCl 150 mg tablet sustained-release 12 hr 150 mg PO DAILY Qty: 90 1RF omeprazole 20 mg capsule,delayed release(DR/EC) 20 mg PO DAILY Qty: 30 3RF aspirin 81 MG tablet,delayed release (DR/EC) 81 mg PO DAILY citalopram 20 mg tablet 20 mg PO DAILY losartan 100 mg tablet 100 mg PO DAILY atorvastatin 80 mg tablet 80 mg PO HS Qty: 30 0RF oxycodone-acetaminophen 7.5-325 mg Tablet 1 tab PO Q6HP PRN (Reason: Moderate Pain (4-6)) 3 Days Qty: 11 0RF Discontinued cefdinir 300 mg capsule 300 mg PO BID 2 Days Qty: 4 0RF Problem Reconciliation Problems Reviewed?: Yes Patient Discharge Instructions Patient Instructions: DI for Aspiration Pneumonia, DI for Cardiac Catheterization, DI for Surgical Site Infection, DI for Respiratory Failure, DI for Respiratory Distress Syndrome -- Adult Print Language: Urdu Providers Primary Care Provider: Jeancarlos Santizo Admit Provider: Wayne Plummer Attending Provider: Wayne Plummer
--- NOTE | 2024-10-24 15:48 | HMH.PHAINT1 ---
Pharmacy Intervention Comments: COUNSELED PATIENT ON NEW, CONTINUED, AND STOPPED MEDICATIONS. PATIENT VERBALIZED UNDERSTANDING.
--- NOTE | 2024-10-27 11:31 | SW/DCPLANNER ---
Spoke with patient on the phone. Patient stated that she is doing well. Patient stated that she was able to get her medicine from clinic pharmacy. Patient stated that she is having flank spasms and asked the nurse what she can do for it and suggested that she follows up with her primary care provider. Patient stated that she doesnt have any other concerns or questions at this time. Amy English
== END 2024-10-24 19:11 | disposition home health service (06) ==
LOC: ER 18:01 → ICU 22:33 → 2ND 10-23 14:20
PROVIDERS: Internal Medicine; Nurse Practitioner Acute Care; Physician Assistant; Admitting Provider Student in an Organized Health Care Education/Training Program; Emergency Provider Emergency Medicine; PCP Internal Medicine; Visit Provider Student in an Organized Health Care Education/Training Program
DX: J96.01 Acute respiratory failure with hypoxia (principal); I25.110 Atherosclerotic heart disease of native coronary artery with unstable angina pectoris; I10 Essential (primary) hypertension; E78.2 Mixed hyperlipidemia; M54.9 Dorsalgia, unspecified; G89.29 Other chronic pain; J69.0 Pneumonitis due to inhalation of food and vomit; I44.7 Left bundle-branch block, unspecified; E55.9 Vitamin D deficiency, unspecified; Z79.899 Other long term (current) drug therapy
CPT/HCPCS: 36415; 71045; 71275; 74230; 80048; 80053; 82803; 83735; 83880; 84145; 84484; 85025; 85610; 85651; 86140; 87040; 87070; 87205; 87633; 92611; 93005; 93458; 99152; 99291; C1725; C1769; G0378; J1200; J1644; J1940; J2250; J2919; J3010; J3370; J7050; J7620; Q9967

== ENCOUNTER 2024-10-31 13:08 | Outpatient (POV) | payer MEDICARE, OTHER, SELFPAY ==
[2024-10-31 13:26] VITALS: BP 126/48; PULSE 64; RESP 16; O2SAT 96; BMI 25.6
--- NOTE | 2024-10-31 14:12 | A.OFFVIS_ITS ---
[facility] Disclaimer: The information contained in this section may have been updated after the patient was seen, as this information can be updated by other users. Medical History ARDS (adult respiratory distress syndrome) Pneumonia Thyroid nodule Memory loss Ataxia, unspecified Lumbago with sciatica, left side Primary generalized (osteo)arthritis Vitamin D deficiency, unspecified Abnormal electrocardiogram [ECG] [EKG] Fibromyalgia Abnormal EKG Diastolic dysfunction HTN (hypertension) HLD (hyperlipidemia) Gastroesophageal reflux disease Surgical History History of tonsillectomy Presence of artificial knee joint, bilateral History of cholecystectomy H/O total hysterectomy Family History Other Family history of Alzheimer disease Family history of cancer Social History Smoking Status: Never smoker second hand exposure: No alcohol intake: never substance use type: denies use current occupational status: other Travel in the last 8 weeks: None household members: spouse housing: house current occupational exposures/hazards: No caffeine: Yes PM Subjective & Objective Subjective Subjective:: Patient is a pleasant 79-year-old female who presents today for postop of L1 kyphoplasty on 10/17/2024. Today she rates her pain at a 1 out of 10. Patient states that she is not experiencing the pain like what she was prior to this procedure. She states that that has resolved. She states however she has noticed more pain or spasm like sensations in her low back, hip area. She states these are very random however do cause increased pain when they do present. Patient did have issues at the end of her surgical procedure where she did vomit and aspirate causing her to have to be intubated and admitted. She states that she ended up going home however her oxygen was still staying low so she ended up being reevaluated in the ER. She did end up getting admitted again and states that where previously her EKG had done an abnormal rhythm they went ahead and proceeded forward with a cardiac cath. She states that they ended up not finding anything of significance and she is now on continuous O2 at 2 L. She does state that her pulse ox is reading 95 to 99% at home and that even when she does stop and takes off her oxygen she does not drop below 90 nail. She is following up with pulmonology next week. Patient is doing at home occupational therapy and physical therapy. Patient does state that the compounded cream is helping. Her August has been reviewed and is appropriate. Review of Systems: General: No recent weight changes, no fever, no sleep disturbances Respiratory: No cough, no shortness of air, no recurring pulmonary infections Cardiovascular/peripheral vascular: No chest pain, no palpitations, no edema, no shortness of breath Gastrointestinal: No new onset incontinence, normal bowel movements reported Genitourinary: No new onset incontinence Musculoskeletal: Low back, hip pain Psychiatric: [Normal mood/affect] Neurological: [Denies weakness in extremities], [denies balance issues] Pain at rest (0-10 scale): 1 Objective Objective:: Physical Exam: General: Alert and oriented x3, no acute distress, pleasant and cooperative Lungs: Respirations even and unlabored, symmetrical chest expansion Eyes: PERRL Musculoskeletal: Flexion and extension of lumbar [spine] somewhat guarded secondary to pain, [antalgic gait noted] point tenderness along bilateral SI joints Neurological: Speech clear, no gross sensory deficit Has patient had previous pain injection?: No Conservative treatment options previously tried: Physical Therapy Length of treatment: Ongoing Meds Home Medications and Allergies Home Medications ?Medication ?Instructions ?Recorded ?Confirmed ?Type aspirin 81 mg tablet,delayed 81 mg PO DAILY 04/22/18 10/31/24 History release [id number]-lbxq-bwac 8 mg-folic 400 1 tab PO DAILY supplement 09/17/20 10/31/24 History mcg-K 50 mcg-lutein 300 mcg tablet (Centrum Silver Women) hydrocortisone 2.5 % topical cream 1 applic topical DIRECTED Skin 10/31/21 10/31/24 History Condition gabapentin 100 mg capsule 100 mg PO BIDP PRN nerve pain 05/15/23 10/31/24 History metoprolol succinate 25 mg 25 mg PO DAILY #90 tabs 12/10/23 10/31/24 Rx tablet,extended release 24 hr cholecalciferol (vitamin D3) 75 3,000 unit PO DAILY 03/11/24 10/31/24 History mcg (3,000 unit) tablet bupropion HCl 150 mg tablet,12 hr 150 mg PO DAILY #90 ea 08/12/24 10/31/24 Rx sustained-release omeprazole 20 mg capsule,delayed 20 mg PO DAILY #30 caps 09/11/24 10/31/24 Rx release citalopram 20 mg tablet 20 mg PO DAILY 10/17/24 10/31/24 History losartan 100 mg tablet 100 mg PO DAILY 10/17/24 10/31/24 History atorvastatin 80 mg tablet 80 mg PO HS #30 tabs 10/21/24 10/31/24 Rx oxycodone-acetaminophen 7.5 mg-325 1 tab PO Q6HP PRN Moderate Pain 10/21/24 10/31/24 Rx mg tablet (4-6) 3 days #11 tabs amoxicillin 875 mg-potassium 1 tab PO BID 5 days #10 tabs 10/24/24 10/31/24 Rx clavulanate 125 mg tablet prednisone 20 mg tablet 40 mg (2 x 20 mg) PO DAILY 6 days 10/24/24 10/31/24 Rx #12 tabs New Prescriptions to Start Prescriptions: Allergies Allergy/AdvReac Type Severity Reaction Status Date / Time morphine Allergy Unknown Verified 10/28/24 13:53 allergy reaction propoxyphene (From Darvon) Allergy Unknown Verified 10/28/24 13:53 allergy reaction thimerosal (From Merthiolate Allergy Unknown Verified 10/28/24 13:53 (thimerosal)) allergy reaction Assessment and Plan *Assessment and plan (1) Chronic back pain: Status: Acute Qualifiers: Back pain location: back pain in unspecified location Category: Medical Code(s): M54.9 - Dorsalgia, unspecified; G89.29 - Other chronic pain (2) Compression fracture of L1 lumbar vertebra: Status: Acute Category: Medical Code(s): S32.010A - Wedge compression fracture of first lumbar vertebra, initial encounter for closed fracture (3) Bilateral sacroiliitis: Status: Acute Category: Medical Code(s): M46.1 - Sacroiliitis, not elsewhere classified Plan I did discuss with the patient that it does seem like her SI joints may be inflamed. She was counseled that if this continues to be a problem and continues to worsen that we can do SI injections. We will follow-up with her in 1 month. Patient agrees with this plan of care. Patient has been instructed to contact the clinic with any concerns before the next appointment. Dr. Alonzo has reviewed this note and agrees with this plan of care. This note was dictated using voice recognition software and make contain errors or omissions. All injections are used with Lidocaine, Bupivacaine and Depo Medrol. Occasionally urine drug screen is needed to verify patient's compliance with our office pain contract. This is ordered based off specific treatments related to chronic pain with the potential to abuse certain medications.
== END 2024-10-31 23:59 | disposition home or self-care (01) ==
PROVIDERS: PCP Internal Medicine; Visit Provider Nurse Practitioner Family
DX: M54.9 Dorsalgia, unspecified (principal); G89.29 Other chronic pain; S32.010A Wedge compression fracture of first lumbar vertebra, initial encounter for closed fracture; M46.1 Sacroiliitis, not elsewhere classified; Z96.653 Presence of artificial knee joint, bilateral
CPT/HCPCS: 99212; G0463

== ENCOUNTER 2024-11-04 00:40 | Observation (INO) | payer MEDICARE, OTHER, SELFPAY ==
[2024-11-04] VITALS (9 sets, daily range): BP systolic 116–151; BP diastolic 56–99; PULSE 58–63; RESP 17–18; TEMP 36.6–37.2; O2SAT 97–98; BMI 25.6; BMI 25.7
--- NOTE | 2024-11-04 00:45 | CT_ITS ---
PROCEDURE INFORMATION: Exam: CTA Chest With Contrast Exam date and time: 11/04/2024 1:44 AM Age: 79 years old Clinical indication: Shortness of breath; Additional info: SOA recent hospitalization TECHNIQUE: Imaging protocol: Computed tomographic angiography of the chest with contrast. Exam focused on the arteries. 3D rendering (Not supervised by radiologist): MIP and/or 3D reconstructed images were created by the technologist. Radiation optimization: All CT scans at this facility use at least one of these dose optimization techniques: automated exposure control; mA and/or kV adjustment per patient size (includes targeted exams where dose is matched to clinical indication); or iterative reconstruction. Contrast material: ISOVUE; Contrast volume: 70 ml; Contrast route: INTRAVENOUS (IV); COMPARISON: CT ANGIO CHEST PE PROTOCOL 10/22/2024 5:18 PM FINDINGS: Pulmonary arteries: There are filling defects in the segmental and subsegmental branches in the bilateral lower lobes consistent with acute PE. Aorta: Mild atherosclerosis. No aortic aneurysm. No aortic dissection. Lungs: Unremarkable. No consolidation. No masses. Pleural spaces: Unremarkable. No pneumothorax. No pleural effusion. Heart: Unremarkable. No cardiomegaly. No pericardial effusion. The RV/LV ratio is less than or equal to 1. Lymph nodes: Unremarkable. No enlarged lymph nodes. Gallbladder and biliary ducts: The gallbladder has been resected. Mild diffuse biliary dilatation consistent with postoperative cholestasis. There are small bilateral parapelvic cysts. There are punctate nonobstructing left renal calculi. Bones/joints: Diffuse osteopenia and spondylosis. Stable chronic compression fractures including kyphoplasty involving L1. Soft tissues: There is a stable complex nodule exophytically projecting off the posteroinferior right lobe of the thyroid measuring 2.1 x 2.1 cm on series 5 image 23. IMPRESSION: 1. Acute bilateral PE without radiographic evidence of right heart strain. 2. Improved aeration bilaterally consistent with resolving pneumonia and/or edema. 3. Decreased right pleural effusion and resolved left pleural effusion. 4. Recommend correlation with the body the report for further details regarding additional nonemergent findings. There is a stable complex nodule exophytically projecting off the posteroinferior right lobe of the thyroid measuring 2.1 x 2.1 cm on series 5 image 23. 5. THIS REPORT CONTAINS FINDINGS THAT MAY BE CRITICAL TO PATIENT CARE. 6. The findings were verbally communicated via telephone conference with Anne Osuna at 2:17 AM EST on 11/04/2024. 7. The findings were acknowledged and understood. COMMENTS: Consistent with the [employer]'s Incidental Findings Committee white paper (J [employer] Rod Radiol 2018): Any incidental renal lesion less than 1 cm or classified as too small to characterize, or any incidental cystic renal lesion characterized as simple-appearing, is likely benign. No follow-up imaging is recommended for these lesions per consensus recommendations based on imaging criteria.
--- NOTE | 2024-11-04 01:04 | ECG_ITS ---
APPROVED REPORT Exam: Resting ECG HR:60 bpm ECG Measurements Heart Rate 60 AXES OH 132 P 48 QRSd 140 QRS 58 QT 448 T 32 QTc 449 Conclusion SINUS RHYTHM LEFT BUNDLE BRANCH BLOCK [120+ ms QRS DURATION, 80+ ms Q/S IN V1/V2, 85+ ms R IN I/aVL/V5/V6] Similar to prior ECG No STEMI Electronically signed by : LAXMI MILES, 11/04/2024 06:22:37
[2024-11-04 01:14] LABS: Lactate Venous 1.3 mmol/L (0.4-2.0); VBG HCO3 26.4 mmol/L (23-30); VBG Oxygen Saturation 95.4 % (50-70); VBG PCO2 41.8 mmol/L (35-51); VBG PH 7.42 mmol/L (7.31-7.41); VBG PO2 75.2 mmol/L (28-40); VBG Total CO2 27.7 mmol/L (23-27)
[2024-11-04 01:14] LABS: Adenovirus,PCR Not Detected (NotDetected); Bordetella Pertussis Not Detected (NotDetected); Chlamydophila Pneumoniae, PCR Not Detected (NotDetected); Coronavirus 19, PCR Not Detected (NotDetected); Coronavirus 229E Not Detected (NotDetected); Coronavirus NL63 Not Detected (NotDetected); Coronavirus OC43 Not Detected (NotDetected); Coronovirus HKU1,PCR Not Detected (NotDetected); Human Metapneumovirus Not Detected (NotDetected); Influenza A, PCR Not Detected (NotDetected); Influenza AH1, 2009 Not Detected (NotDetected); Influenza AH1, PCR Not Detected (NotDetected); Influenza AH3,PCR Not Detected (NotDetected); Influenza B, PCR Not Detected (NotDetected); Mycoplasma Pneumoniae, PCR Not Detected (NotDetected); Parainfluenza 1, PCR Not Detected (NotDetected); Parainfluenza 2, PCR Not Detected (NotDetected); Parainfluenza 3, PCR Not Detected (NotDetected); Parainfluenza 4, PCR Not Detected (NotDetected); Respiratory Syncytial Virus Not Detected (NotDetected); Rhinovirus/Enterovirus Not Detected (NotDetected)
[2024-11-04 01:20] LABS: Albumin Level 3.5 g/dl (3.5-5.0); Basophils # 0.1 K/mm3 (0-0.2); Basophils % 0.4 % (0.1-2.0); Chloride 101 mmol/L (98-107); Eosinophils # 0.1 K/mm3 (0.0-0.4); Hematocrit 33.9 % (37.0-47.0); Hemoglobin 11.2 g/dL (12.2-16.2); Lymphocytes # 2.2 K/mm3 (0.7-4.5); Lymphocytes % 15.5 % (10-50); Mean Corpuscular Hemoglobin 28.8 pg (27.0-31.2); Mean Corpuscular Volume 87.1 fl (81-99); Mean Platelet Volume 9.9 fl (7.4-10.4); Monocytes # 1.6 K/mm3 (0.1-1.0); Monocytes % 11.6 % (1.7-9.3); Neutrophils % 70.4 % (37.0-80.0); Platelet Count 358 K/mm3 (142-424); Potassium 4.1 mmoL/L (3.5-5.1); Red Blood Count 3.89 M/mm3 (4.20-5.40); Red Cell Distribution Width 13.2 % (11.5-17.5); Sodium 137 mmol/L (136-145); White Blood Count 14.2 K/mm3 (4.8-10.8)
[2024-11-04 01:23] LABS: Alanine Aminotransferase 85 U/L (12-78); Albumin/Globulin Ratio 1.3 (1.1-1.8); Alkaline Phosphatase 123 U/L (38-126); Anion Gap 10.1 mEq/L (5-15); Aspartate Amino Transferase 42 U/L (14-36); Bilirubin,Total 0.7 mg/dl (0.2-1.3); Blood Urea Nitrogen 15 mg/dl (7-17); Calcium 8.9 mg/dl (8.4-10.2); Carbon Dioxide 30 mmol/L (22.0-30.0); Creatinine Clearance Estimated 41 mL/min (50-200); Estimated Glomerular Filt Rate 119 ml/min (>60); GFR (African American) 144 ML/MIN (>60); Globulin 2.8 g/dL (1.3-3.2); Glucose 118 mg/dl (74-100); Total Protein,Serum 6.3 g/dl (6.3-8.2)
[2024-11-04 01:26] LABS: INR 0.89 (0.9-1.1); Prothrombin Time 9.9 seconds (9.2-12.1)
[2024-11-04 01:33] LABS: NT Pro Brain Natriuretic Pep. 152 pg/mL (0-450)
[2024-11-04 01:51] LABS: Troponin I < 0.01 ng/ml (0.00-0.034)
[2024-11-04] MEDS: 0.9 % SODIUM CHLORIDE 50 ML VIAL IV (01:54)
[2024-11-04] MEDS: SODIUM CHLORIDE 0.9% 10ML SYR (RAD ONLY) 10 ML IV (01:54)
[2024-11-04] MEDS: IOPAMIDOL-370 (76%);100ML BOTTLE 70 ML IV (01:54)
--- NOTE | 2024-11-04 02:04 | [facility].EDCP ---
Discharge Plan Disposition Patient Disposition: Admitted Condition: Fair Prescriptions Prescriptions: No Action cholecalciferol (vitamin D3) 75 mcg (3,000 unit) tablet 3,000 unit PO DAILY Centrum Silver Women 8 mg iron-400 mcg-300 mcg tablet 1 tab PO DAILY gabapentin 100 mg capsule 100 mg PO BIDP PRN (Reason: nerve pain) hydrocortisone 2.5 % cream 1 applic TOPICAL DIRECTED metoprolol succinate 25 mg tablet extended release 24 hr 25 mg PO DAILY Qty: 90 3RF bupropion HCl 150 mg tablet sustained-release 12 hr 150 mg PO DAILY Qty: 90 1RF omeprazole 20 mg capsule,delayed release(DR/EC) 20 mg PO DAILY Qty: 30 3RF prednisone 20 mg Tablet 40 mg PO DAILY 6 Days Qty: 12 0RF amoxicillin-pot clavulanate 875-125 mg Tablet 1 tab PO BID 5 Days Qty: 10 0RF aspirin 81 MG tablet,delayed release (DR/EC) 81 mg PO DAILY citalopram 20 mg tablet 20 mg PO DAILY losartan 100 mg tablet 100 mg PO DAILY atorvastatin 80 mg tablet 80 mg PO HS Qty: 30 0RF oxycodone-acetaminophen 7.5-325 mg Tablet 1 tab PO Q6HP PRN (Reason: Moderate Pain (4-6)) 3 Days Qty: 11 0RF Referrals Follow up/Referrals: Jeancarlos Santizo MD [Primary Care Provider] - See instructions Clinical Impressions Clinical Impression: Pulmonary emboli Print Language Print Language: Welsh Discharge ED Provider: Anne Osuna General Chief Complaint: Shortness of Breath/Dyspnea Stated Complaint: trouble breathing Time Seen by Provider: 11/04/24 00:44 Mode of Arrival: Wheelchair Source of Information: Patient Limitations: No Limitations Description of Symptoms (Recalled from ER Triage Doc. by RN): Patient had sx on the , went home on the , came back on the for respiratory complications . Wears 2L O2, States she is SOA and has been since earlier this evening. Also complains of pain/spasms going up her side. Took percocet at 11. History of Present Illness HPI narrative: 79-year-old female presents to the ER for shortness of breath that seems to worsen this evening. Patient had surgery on the for kyphoplasty but ended up being admitted for aspiration pneumonia. She was able to be discharged but then was readmitted to our hospital with ARDS and was discharged 2 days later. She has been wearing 2 L nasal cannula at home for oxygen support. She reports she is having spasm from her right shoulder blade down the right side of her thorax that is worse with deep breathing. She reports she has no history of blood clot, no swelling in the legs, no chest pain or pressure. She reports she was trying to use her incentive spirometer tonight and could not get it to go up nearly as far as she could get it this morning. Family reports that patient seemed to do really well when she was on steroids but since she has stopped steroids seems to be worsening again. No fevers, chills, congestion, nausea, vomiting, diarrhea, or other associated symptoms. Related Data Home Medications ?Medication ?Instructions ?Recorded ?Confirmed aspirin 81 mg tablet,delayed 81 mg PO DAILY 04/22/18 10/31/24 release [id number] 8 mg-folic 400 1 tab PO DAILY supplement 09/17/20 10/31/24 mcg-K 50 mcg-lutein 300 mcg tablet (Centrum Silver Women) hydrocortisone 2.5 % topical cream 1 applic topical DIRECTED Skin 10/31/21 10/31/24 Condition gabapentin 100 mg capsule 100 mg PO BIDP PRN nerve pain 05/15/23 10/31/24 cholecalciferol (vitamin D3) 75 3,000 unit PO DAILY 03/11/24 10/31/24 mcg (3,000 unit) tablet citalopram 20 mg tablet 20 mg PO DAILY 10/17/24 10/31/24 losartan 100 mg tablet 100 mg PO DAILY 10/17/24 10/31/24 Previous Rx's ?Medication ?Instructions ?Recorded metoprolol succinate 25 mg 25 mg PO DAILY #90 tabs 12/10/23 tablet,extended release 24 hr bupropion HCl 150 mg tablet,12 hr 150 mg PO DAILY #90 ea 08/12/24 sustained-release omeprazole 20 mg capsule,delayed 20 mg PO DAILY #30 caps 09/11/24 release atorvastatin 80 mg tablet 80 mg PO HS #30 tabs 10/21/24 oxycodone-acetaminophen 7.5 mg-325 1 tab PO Q6HP PRN Moderate Pain 10/21/24 mg tablet (4-6) 3 days #11 tabs amoxicillin 875 mg-potassium 1 tab PO BID 5 days #10 tabs 10/24/24 clavulanate 125 mg tablet prednisone 20 mg tablet 40 mg (2 x 20 mg) PO DAILY 6 days 10/24/24 #12 tabs Allergies Allergy/AdvReac Type Severity Reaction Status Date / Time morphine Allergy Unknown Verified 10/28/24 13:53 allergy reaction propoxyphene (From Darvon) Allergy Unknown Verified 10/28/24 13:53 allergy reaction thimerosal (From Merthiolate Allergy Unknown Verified 10/28/24 13:53 (thimerosal)) allergy reaction [facility] Disclaimer: The information contained in this section may have been updated after the patient was seen, as this information can be updated by other users. Medical History ARDS (adult respiratory distress syndrome) Pneumonia Thyroid nodule Memory loss Ataxia, unspecified Lumbago with sciatica, left side Primary generalized (osteo)arthritis Vitamin D deficiency, unspecified Abnormal electrocardiogram [ECG] [EKG] Fibromyalgia Abnormal EKG Diastolic dysfunction HTN (hypertension) HLD (hyperlipidemia) Gastroesophageal reflux disease Surgical History History of tonsillectomy Presence of artificial knee joint, bilateral History of cholecystectomy H/O total hysterectomy Family History Other Family history of Alzheimer disease Family history of cancer Social History Smoking Status: Never smoker second hand exposure: No alcohol intake: never substance use type: denies use current occupational status: other Travel in the last 8 weeks: None household members: spouse housing: house current occupational exposures/hazards: No caffeine: Yes Have you lived/traveled outside [place] in past 30 days?: No Contact w/someone who lives/traveled outside [place] past 30 days?: No Exposure to someone with infectious disease in past 14 days?: No Do you have a fever (greater than 100.4 F or 38 C)?: No Have you tested positive for COVID-19: No Exposed to someone with COVID-19 in past 14 days?: No Do you have a sore throat?: No Do you have a cough?: No Do you have any weakness?: No Do you have any diarrhea?: No Are you experiencing any unusual bleeding?: No Do you have any muscle aches/pain?: No Do you have any abdominal pain?: No Are you experiencing loss of taste or smell?: No Other Medical History Have you received the Flu Vaccine for this season: No Have you received the Pneumonia Vaccine: Yes ROS Obtained: Yes Systems reviewed as appropriate & no additional complaints except as documented per HPI Physical Exam General General appearance: alert and in no apparent distress Head Head exam: atraumatic and normocephalic Eye Eye exam: Present PERRL and EOMI ENT ENT exam: Present mucous membranes moist Neck Neck exam: Present normal inspection and full ROM Chest Chest inspection: Present symmetric chest wall rise Respiratory Respiratory exam: Present normal lung sounds bilaterally and other (Saturating in the mid 90s on 2 L nasal cannula without findings of respiratory distress); Absent respiratory distress, wheezes or stridor Cardiovascular Cardiovascular exam: Present regular rate and normal rhythm Abdominal Exam Abdominal exam: Present soft; Absent distention, tenderness, guarding or rebound Extremities Exam Extremities exam: Present full ROM; Absent edema Neurological Exam Neurological exam: Present alert and oriented X3; Absent motor sensory deficit Psychiatric Psychiatric exam: Present normal affect and normal mood Skin Skin exam: Present warm and dry HEART Score HEART Score HEART Score assessment performed?: Yes History (anamnesis): Slightly suspicious ECG: Non-specific disturbance Age: >65 years Risk factors: Atherosclerosis history Troponin: </= normal limit HEART Score: 5 Procedures Miscellaneous Procedure Procedure Performed: Limited lung ultrasound A focused ultrasound exam of the pleural spaces was performed to evaluate for pneumothorax, pulmonary edema, pleural effusion and/or consolidation. The ultrasound was performed with the following indications, as noted in the H&P: Dyspnea Identified structures: Bilateral thoracic cavities were examined. Findings: Lung sliding: -Present bilaterally B-lines: Trace B-lines present bilaterally in the anterior and lateral lung reddy Pleural effusion: Absent bilaterally Consolidation: Absent bilaterally Impression: - Pneumothorax absent bilaterally - Pleural effusion absent bilaterally - B-lines mild bilateral - Consolidation absent bilaterally Images were saved to permanent archive The study was technically adequate CPT 42367-43 This study was performed by me, and I personally interpreted all images/videos. Based on my clinical judgement, these images were adequate and did not necessitate further imaging. Limited Cardiac Ultrasound Indication: Shortness of breath Identified cardiac views: [-Cardiac parasternal long axis] [-Cardiac parasternal short axis] [-Cardiac apical four-chamber] [-Cardiac subxiphoid] Findings: Cardiac activity present without gross wall motion abnormality, no pericardial effusion, no right heart strain Impression: -Cardiac activity present, no gross wall motion abnormality, no pericardial effusion, no right heart strain Images were saved to permanent archive The study was technically adequate CPT: 53617 This study was performed by me, and I personally interpreted all images/videos. Based on my clinical judgement, these images were adequate and did not necessitate further imaging. Critical Care Critical Care Time Critical Care Time: Yes Attestation: On 11/04/24, the high probability of a clinically significant, sudden or life threatening deterioration of the following system(s) (pulmonary, cardiac) required my full and direct attention, intervention and personal management. The time I documented below is in addition to time spent performing reported procedures but includes the following listed in this critical care notation. Total Time Total Critical Care Time: 35 Medical Decision Making Medical Records Medical records reviewed: Yes I reviewed the patient's medical records. MR Comment: Discharge summary from Dr. Joseph on 10/24/2024 demonstrates patient had acute respiratory failure with hypoxia, aspiration pneumonia, left bundle branch block, hypokalemia while hospitalized. Sputum culture showed rare gram-positive cocci and was started on vancomycin. Transition to prednisone and Augmentin. She clinically improved with single dose of Lasix as well as the continued steroids and antibiotics. Discharged on prednisone and Augmentin with pulmonary follow-up. August Inquiry Pt receiving controlled substance: No Vital Signs Vital Signs: 11/04/24 00:41 11/04/24 01:00 Temperature 98.9 F Temperature Source Oral Pulse Rate 62 Pulse Rate [Right Brachial] 63 Respiratory Rate 18 Blood Pressure 151/59 H Blood Pressure [Right Arm] 139/59 L Blood Pressure Mean [Right Arm] 85 Blood Pressure Source [Right Arm] Automatic Cuff Blood Pressure Position [Right Arm] Supine 02 Sat by Pulse Oximetry 98 97 Oxygen Delivery Method Nasal Cannula Oxygen Flow Rate (LPM) 2 Lab Data Labs: Lab Results 11/04/24 01:07: WBC 14.2 H, RBC 3.89 L, Hgb 11.2 L, Hct 33.9 L, MCV 87.1, MCH 28.8, MCHC 33.0, RDW 13.2, Plt Count 358, MPV 9.9, Neut % (Auto) 70.4, Lymph % (Auto) 15.5, Rapides % (Auto) 11.6 H, Eos % (Auto) 1.0, Baso % (Auto) 0.4, Neut # (Auto) 10.0 H, Lymph # (Auto) 2.2, Rapides # (Auto) 1.6 H, Eos # (Auto) 0.1, Baso # (Auto) 0.1, PT 9.9, INR 0.89 L, Sodium 137, Potassium 4.1, Chloride 101, Carbon Dioxide 30, Anion Gap 10.1, BUN 15, Creatinine 0.50 L, Estimated Creat Clear 41, Estimated GFR 119, Est GFR ( Amer) 144, Glucose 118 H, Calcium 8.9, Total Bilirubin 0.7, AST 42 H, ALT 85 H, Alkaline Phosphatase 123, Troponin I < 0.01, NT-Pro-B Natriuret Pep 152, Total Protein 6.3, Albumin 3.5, Globulin 2.8, Albumin/Globulin Ratio 1.3 11/04/24 01:09: VBG pH 7.42 H, VBG pCO2 41.8, VBG pO2 75.2 H, VBG HCO3 26.4, VBG Total CO2 27.7 H, VBG O2 Saturation 95.4 H, VBG Base Excess 2.0, VBG Lactic Acid 1.3 11/04/24 01:07 11/04/24 01:07 Response Orders (Tests/Meds): ED MEDICATIONS Discontinued Medications Generic Name Dose Route Start Last Admin Trade Name Freq PRN Reason Stop Dose Admin Enoxaparin Sodium 60 mg 11/04/24 02:22 Enoxaparin 100mg/Ml Syringe 1 mg/kg (60 mg) 11/04/24 02:23 SUBCUT ONCE ONE Iopamidol 70 ml 11/04/24 01:53 11/04/24 01:54 Iopamidol-370 (76%);100ml Bottle IV 11/04/24 01:54 70 ml ONCE ONE Administration Sodium Chloride 10 ml 11/04/24 01:53 11/04/24 01:54 Sodium Chloride 0.9% 10ml Syr (Rad Only) IV 11/04/24 01:54 10 ml ONCE ONE Administration Sodium Chloride 50 ml 11/04/24 01:53 11/04/24 01:54 0.9 % Sodium Chloride 50 Ml Vial IV 11/04/24 01:54 50 ml ONCE ONE Administration ORDERS Category Date Time Status CT angio chest PE protocol Stat Cat Scan 11/04/24 00:45 Completed POCUS Point of Care (ER Only) Stat Exams 11/04/24 00:55 Completed Complete Blood Count Auto Diff Stat Lab 11/04/24 01:07 Completed Comprehensive Metabolic Panel Stat Lab 11/04/24 01:07 Completed Full Resp Panel w/COVID ([facility]) Routine Lab 11/04/24 01:07 Received NT Pro Brain Natriuretic Pep. Stat Lab 11/04/24 01:07 Completed PTT [Activated Partial Thrombo Time] Stat Lab 11/04/24 01:10 Received Prothrombin Time INR Stat Lab 11/04/24 01:07 Completed Troponin I Q3H Lab 11/04/24 03:45 Ordered Troponin I Q3H Lab 11/04/24 06:45 Ordered Troponin I Stat Lab 11/04/24 01:07 Completed VBG [Venous Blood Gas] Stat RT 11/04/24 01:09 Completed MDM Narrative Medical Decision Narrative: In summary, this 79-year-old female with recent aspiration pneumonia and ARDS following a surgical procedure which increases the amount of data be reviewed as well as her overall morbidity presents to the emergency department today with shortness of breath. On initial evaluation patient is hemodynamically stable, afebrile, lungs clear bilaterally, saturating well on home 2 L, speaking in full sentences with no adventitious sounds or accessory muscle use. Remainder of exam benign. I personally performed and interpreted POCUS which demonstrates few B-lines but no other obvious abnormalities of the lungs or heart on focused exam. Differential diagnosis includes but is not limited to CHF, fluid overload, ARDS, with patient's recent hospitalization it is possible she has developed PE or is having ACS, pneumothorax, infectious findings in the lungs, electrolyte abnormality, kidney dysfunction, among others. Based on these concerns, I ordered serum labs, CT imaging, cardiac workup. ECG personally interpreted demonstrates sinus rhythm, rate 60, normal axis, normal MA and QTc, presence of left bundle branch block, no STEMI. I reviewed previous ECG from 06/22/2025 which demonstrates similar findings in morphology. No medications were initially administered to the patient. Labs personally reviewed demonstrate leukocytosis with WBC 14.2 up from 7.8 at the time of discharge, likely related to patient's recent use of steroids, possibly infectious in nature, normal platelets, PT/INR nonactionable, . CTA PE personally interpreted does demonstrate findings of PE in a segmental branch of the left lung on my personal interpretation, see radiology read for final interpretation. I spoke with the V rad radiologist who actually comments that patient has bilateral PE but no right heart strain. This is consistent with the patient having an undetectable troponin. With patient's findings, administered therapeutic Lovenox. Given her recent history of admission for aspiration pneumonia, ARDS, and her symptoms at this time associated with the newly identified PE, I believe she requires admission. I discussed this case with the hospitalist and he accepted the patient for admission for continued management. Patient admitted in stable condition.
[2024-11-04] MEDS: ENOXAPARIN 100MG/ML SYRINGE 60 MG SUBCUT (02:34)
--- NOTE | 2024-11-04 03:02 | PC.NURSE ---
Patient arrived to floor via stretcher from ED at 03:00.
--- NOTE | 2024-11-04 03:32 | EXP.HP ---
History of Present Illness *Admission Date: 11/04/24 *Reason for visit:: shortness of breath *History of present illness: presents to the ER for shortness of breath that seems to worsen this evening. Patient had surgery on the for kyphoplasty but ended up being admitted for aspiration pneumonia. She was able to be discharged but then was readmitted to our hospital with ARDS and was discharged 2 days later. She has been wearing 2 L nasal cannula at home for oxygen support. She reports she is having spasm from her right shoulder blade down the right side of her thorax that is worse with deep breathing. She reports she has no history of blood clot, no swelling in the legs, no chest pain or pressure. She reports she was trying to use her incentive spirometer tonight and could not get it to go up nearly as far as she could get it this morning. Family reports that patient seemed to do really well when she was on steroids but since she has stopped steroids seems to be worsening again. No fevers, chills, congestion, nausea, vomiting, diarrhea, or other associated symptoms. CT with acute bilateral PE. Appear distal targets. no CT RV strain. no pocus rv strain per ED. negative biomarkers. discussed plan with debbie [facility] Disclaimer: The information contained in this section may have been updated after the patient was seen, as this information can be updated by other users. Medical History ARDS (adult respiratory distress syndrome) Pneumonia Thyroid nodule Memory loss Ataxia, unspecified Lumbago with sciatica, left side Primary generalized (osteo)arthritis Vitamin D deficiency, unspecified Abnormal electrocardiogram [ECG] [EKG] Fibromyalgia Abnormal EKG Diastolic dysfunction HTN (hypertension) HLD (hyperlipidemia) Gastroesophageal reflux disease Surgical History History of tonsillectomy Presence of artificial knee joint, bilateral History of cholecystectomy H/O total hysterectomy Family History Other Family history of Alzheimer disease Family history of cancer Social History Smoking Status: Never smoker second hand exposure: No alcohol intake: never substance use type: denies use current occupational status: other Travel in the last 8 weeks: None household members: spouse housing: house current occupational exposures/hazards: No caffeine: Yes Have you lived/traveled outside [place] in past 30 days?: No Contact w/someone who lives/traveled outside [place] past 30 days?: No Exposure to someone with infectious disease in past 14 days?: No Do you have a fever (greater than 100.4 F or 38 C)?: No Have you tested positive for COVID-19: No Exposed to someone with COVID-19 in past 14 days?: No Do you have a sore throat?: No Do you have a cough?: No Do you have any weakness?: No Do you have any diarrhea?: No Are you experiencing any unusual bleeding?: No Do you have any muscle aches/pain?: No Do you have any abdominal pain?: No Are you experiencing loss of taste or smell?: No Other Medical History Have you received the Flu Vaccine for this season: No Have you received the Pneumonia Vaccine: Yes Review of Systems Review of Systems Review of systems:: pertinent systems reviewed and negative unless documented below Meds Home Medications and Allergies Home Medications ?Medication ?Instructions ?Recorded ?Confirmed ?Type aspirin 81 mg tablet,delayed 81 mg PO DAILY 04/22/18 10/31/24 History release qixldues-fcuw-endx 8 mg-folic 400 1 tab PO DAILY supplement 09/17/20 10/31/24 History mcg-K 50 mcg-lutein 300 mcg tablet (Centrum Silver Women) hydrocortisone 2.5 % topical cream 1 applic topical DIRECTED Skin 10/31/21 10/31/24 History Condition gabapentin 100 mg capsule 100 mg PO BIDP PRN nerve pain 05/15/23 10/31/24 History metoprolol succinate 25 mg 25 mg PO DAILY #90 tabs 12/10/23 10/31/24 Rx tablet,extended release 24 hr cholecalciferol (vitamin D3) 75 3,000 unit PO DAILY 03/11/24 10/31/24 History mcg (3,000 unit) tablet bupropion HCl 150 mg tablet,12 hr 150 mg PO DAILY #90 ea 08/12/24 10/31/24 Rx sustained-release omeprazole 20 mg capsule,delayed 20 mg PO DAILY #30 caps 09/11/24 10/31/24 Rx release citalopram 20 mg tablet 20 mg PO DAILY 10/17/24 10/31/24 History losartan 100 mg tablet 100 mg PO DAILY 10/17/24 10/31/24 History atorvastatin 80 mg tablet 80 mg PO HS #30 tabs 10/21/24 10/31/24 Rx oxycodone-acetaminophen 7.5 mg-325 1 tab PO Q6HP PRN Moderate Pain 10/21/24 10/31/24 Rx mg tablet (4-6) 3 days #11 tabs amoxicillin 875 mg-potassium 1 tab PO BID 5 days #10 tabs 10/24/24 10/31/24 Rx clavulanate 125 mg tablet prednisone 20 mg tablet 40 mg (2 x 20 mg) PO DAILY 6 days 10/24/24 10/31/24 Rx #12 tabs New Prescriptions to Start Prescriptions: Allergies Allergy/AdvReac Type Severity Reaction Status Date / Time morphine Allergy Unknown Verified 10/28/24 13:53 allergy reaction propoxyphene (From Darvon) Allergy Unknown Verified 10/28/24 13:53 allergy reaction thimerosal (From Merthiolate Allergy Unknown Verified 10/28/24 13:53 (thimerosal)) allergy reaction Exam Data for Last 24 hours Vital signs and Labs for Last 24 Hours: Temp Pulse Resp BP Pulse Ox O2 Del Method O2 Flow Rate 98.1 F 60 17 142/99 H 98 Nasal Cannula 2 11/04/24 03:22 11/04/24 03:22 11/04/24 03:22 11/04/24 03:22 11/04/24 03:22 11/04/24 03:22 11/04/24 03:22 Laboratory Results - last 24 hr 11/04/24 01:07: WBC 14.2 H, RBC 3.89 L, Hgb 11.2 L, Hct 33.9 L, MCV 87.1, MCH 28.8, MCHC 33.0, RDW 13.2, Plt Count 358, MPV 9.9, Neut % (Auto) 70.4, Lymph % (Auto) 15.5, [place] % (Auto) 11.6 H, Eos % (Auto) 1.0, Baso % (Auto) 0.4, Neut # (Auto) 10.0 H, Lymph # (Auto) 2.2, [place] # (Auto) 1.6 H, Eos # (Auto) 0.1, Baso # (Auto) 0.1, PT 9.9, INR 0.89 L, Sodium 137, Potassium 4.1, Chloride 101, Carbon Dioxide 30, Anion Gap 10.1, BUN 15, Creatinine 0.50 L, Estimated Creat Clear 41, Estimated GFR 119, Est GFR ( Amer) 144, Glucose 118 H, Calcium 8.9, Total Bilirubin 0.7, AST 42 H, ALT 85 H, Alkaline Phosphatase 123, Troponin I < 0.01, NT-Pro-B Natriuret Pep 152, Total Protein 6.3, Albumin 3.5, Globulin 2.8, Albumin/Globulin Ratio 1.3 11/04/24 01:09: VBG pH 7.42 H, VBG pCO2 41.8, VBG pO2 75.2 H, VBG HCO3 26.4, VBG Total CO2 27.7 H, VBG O2 Saturation 95.4 H, VBG Base Excess 2.0, VBG Lactic Acid 1.3 11/04/24 01:10: APTT 23.0 I & O for Last 24 hours: Intake & Output 11/01/24 11/02/24 11/03/24 11/04/24 23:59 23:59 23:59 23:59 Weight 58.014 kg *Routine HEENT Exam Head: Present normocephalic Eye: Present EOMI ENT: Present mucous membranes moist *Routine Neck Exam Neck: Present supple and full ROM; Absent JVD *Routine Respiratory Exam Respiratory: Present CTA bilaterally *Routine Cardiovascular Exam Cardiovascular: Present RRR, Normal S1 and Normal S2; Absent murmur *Routine Abdominal Exam Abdominal: Present soft and normoactive bowel sounds *Routine Rectal Exam Rectal:: deferred *Routine Genitalia Exam Genitalia:: deferred *Routine Extremities Exam Extremities: Absent cyanosis or clubbing *Routine Skin Exam Skin: Present intact and cyanosis *Routine Neurological Exam Neurological: Present alert, oriented X3 and CN II-XII intact Assessment and Plan *Assessment and plan (1) Pulmonary emboli: Status: Acute Category: Medical Code(s): I26.99 - Other pulmonary embolism without acute cor pulmonale (2) Left bundle branch block: Status: Chronic Category: Medical Code(s): I44.7 - Left bundle-branch block, unspecified (3) CAD (coronary artery disease): Status: Chronic Qualifiers: Coronary Disease-Associated Artery/Lesion type: [place] artery [place] vs. transplanted heart: [place] heart Associated angina: without angina Qualified Code(s): I25.10 - Atherosclerotic heart disease of [place] coronary artery without angina pectoris Category: Medical Code(s): I25.10 - Atherosclerotic heart disease of [place] coronary artery without angina pectoris (4) HTN (hypertension): Status: Chronic Qualifiers: Hypertension type: essential hypertension Qualified Code(s): I10 - Essential (primary) hypertension Category: Medical Code(s): I10 - Essential (primary) hypertension (5) HLD (hyperlipidemia): Status: Chronic Qualifiers: Hyperlipidemia type: mixed hyperlipidemia Qualified Code(s): E78.2 - Mixed hyperlipidemia Category: Medical Code(s): E78.5 - Hyperlipidemia, unspecified Plan Acute bilateral PE - low risk , negaive biomarkers, no strain on ct or pocus, troponin or bnp - lovenox, weight based - cardiology consult - repeat echo ordered - le dvt duplex - tele normocytic anemia -fe studies gerd - ppi Incidental thyroid nodule stable complex nodule exophytically projecting off the posteroinferior right lobe of the thyroid measuring 2.1 x 2.1 cm on series 5 image 23. resume medications once reconciled TTE Normal biventricular systolic function. Mild (FAITH by continuity equation is 1.9 cm???. Peak velocity 2.1 m/s. Mean AV gradient was 9 mmHg. Max AV gradient is 19 mmHg). Mild TR. Elevated RVSP 50 to 55 mmHg.
--- NOTE | 2024-11-04 03:38 | CA_ITS ---
APPROVED REPORT EXAM: Limited 2D and color flow Echocardiogram Levelman: Monica Salvador, RCS, RVS Ht: 4 ft 11 in Wt: 127lbs BSA: 1.52 BP: 150/59 mmHg Rhythm: NSR Indications: Pumonary embolii, Mild -echo10/20/24, HTN, SOA Echo Enhancing Agent Comments: Limited window with patient supine throughout exam. 2D Dimensions IVSd 1.11 cm F: 0.6-1.0 LVEF (Visual) 68.60 % PWd 0.97 cm F: 0.6 - 1.0 LA Volume 48.60 mL LVDd 3.77 cm F: 3.9 - 5.3 LA Volume Index [id number] mL/m2 (M/F) 16-34 LVDs 2.35 cm F: 2.2 - 3.5 M-Mode Dimensions RVDd 2.66 cm (0.9-2.6) LA Diam 3.29 cm (1.9-4.0) LVDd 3.64 cm (3.5-5.7) LVDs 2.75 cm (3.5-5.7) IVSd 1.07 cm (0.6-1.1) PWd 1.01 cm (0.6-1.1) EF (Teich) 49.40% EPSs 0.17 cm FS 24.50% EDV (Teich) 55.90 mL TAPSE 2.55 (<1.7) ESV (Teich) 28.30 mL LV Diastology E Decel Time 167 (160-240 msec) E/A Ratio 0.87 MED A' 16.60 cm/s LAT A' 16.30 cm/s Aortic Valve FAITH Index 1.57 cm2/m2 AoV Peak Dagoberto. 210.0 (50-130 cm/s) AI PHT 444.00 ms AO Peak GR. 17.70 mmHg AO Mean GR. 9.20 (<5 mmHg) AO VTI 48.1 (18-25 cm) FAITH (VTI) 2.45 (2.5-4.5 cm2) Mitral Valve MV A Velocity 97.0 (40-130 cm/s) E/A Ratio 0.87 Tricuspid Valve TR P. Velocity 347.00 cm/s RAP Estimate 10.00 mmHg RVSP 58.10 mmHg Other Information Study Quality: Fair Conclusion This is a limited TTE to evaluate for biventricular systolic function. Limited windows are obtained. The left ventricle is normal in size. There is increased LV wall thickness. No regional wall motion abnormalities are noted. LVEF is 55%. The right ventricle is mildly dilated. There is normal RV systolic function. TAPSE 2.5 cm. Mild , mild AI. Moderate TR. Elevated RVSP 40-45 mmHg. Electronically signed by : Shayla Matthews MD 11/04/2024 10:57:04
--- NOTE | 2024-11-04 03:39 | CA_ITS ---
FINAL REPORT TECHNIQUE: Bilateral lower extremity venous duplex was performed with augmentation and compression. CLINICAL HISTORY: Kyphoplasty 10/17/24, Pulmonary emboli COMPARISON: None FINDINGS: Proper flow is seen throughout the deep venous systems in the right lower extremity. There is no evidence of deep venous thrombosis. The left lower extremity is positive for DVT of the mid to distal peroneal vein with thrombus observed with noncompressibility. IMPRESSION: Left lower extremity DVT as above. No evidence of DVT of the right lower extremity Reviewed, Interpreted and Dictated by Ammon Darnell MD Transcribed by Sarah Scott Authenticated and [facility]
[2024-11-04 04:13] LABS: Lactic Acid 1.1 mmol/L (0.7-2.1)
[2024-11-04 04:43] LABS: Troponin I < 0.01 ng/ml (0.00-0.034)
[2024-11-04] MEDS: HYDROCODONE/APAP 5/325 MG TABLET 1 TAB PO (05:13)
[2024-11-04 06:47] LABS: Basophils # 0.1 K/mm3 (0-0.2); Basophils % 0.4 % (0.1-2.0); Eosinophils # 0.2 K/mm3 (0.0-0.4); Eosinophils % 1.3 % (0.1-12.0); Hematocrit 32.7 % (37.0-47.0); Hemoglobin 10.5 g/dL (12.2-16.2); Lymphocytes # 2.5 K/mm3 (0.7-4.5); Lymphocytes % 18.7 % (10-50); Mean Corpuscular HGB Conc 32.1 g/dL (31.8-35.4); Mean Corpuscular Hemoglobin 28.2 pg (27.0-31.2); Mean Corpuscular Volume 87.7 fl (81-99); Mean Platelet Volume 10.3 fl (7.4-10.4); Monocytes # 1.5 K/mm3 (0.1-1.0); Monocytes % 11.2 % (1.7-9.3); Neutrophils # 9.1 K/mm3 (1.8-7.8); Neutrophils % 67.3 % (37.0-80.0); Platelet Count 334 K/mm3 (142-424); Red Blood Count 3.73 M/mm3 (4.20-5.40); Red Cell Distribution Width 13.1 % (11.5-17.5); White Blood Count 13.5 K/mm3 (4.8-10.8)
[2024-11-04 07:05] LABS: Alanine Aminotransferase 71 U/L (12-78); Albumin Level 3.2 g/dl (3.5-5.0); Albumin/Globulin Ratio 1.2 (1.1-1.8); Alkaline Phosphatase 113 U/L (38-126); Aspartate Amino Transferase 45 U/L (14-36); Bilirubin,Total 0.9 mg/dl (0.2-1.3); Blood Urea Nitrogen 14 mg/dl (7-17); Calcium 8.7 mg/dl (8.4-10.2); Carbon Dioxide 28 mmol/L (22.0-30.0); Chloride 102 mmol/L (98-107); Chol/HDL Ratio 3.1 (1-3.5); Cholesterol 128 mg/dl (140-200); Creatinine Clearance Estimated 42 mL/min (50-200); Estimated Glomerular Filt Rate 154 ml/min (>60); GFR (African American) 186 ML/MIN (>60); Globulin 2.6 g/dL (1.3-3.2); Glucose 106 mg/dl (74-100); HDL Cholesterol 41 mg/dl (40-60); Sodium 136 mmol/L (136-145); Total Protein,Serum 5.8 g/dl (6.3-8.2); Triglycerides 105 mg/dl (30-150); VLDL Cholesterol 21 mg/dL (0-40)
[2024-11-04 07:16] LABS: Direct LDL Cholesterol 63.02 mg/dL (100-129)
[2024-11-04 07:34] LABS: Troponin I < 0.01 ng/ml (0.00-0.034)
--- NOTE | 2024-11-04 08:24 | HMH.PHAINT1 ---
Pharmacy Intervention Comments: HOME MEDICATION LIST VERIFIED USING LIST FROM PREVIOUS DISCHARGE FROM THIS FACILITY ON 10/24/24.
[2024-11-04] MEDS: CITALOPRAM 20MG TABLET 20 MG PO (09:24)
[2024-11-04] MEDS: IRBESARTAN 150MG TAB 150 MG PO (09:24)
[2024-11-04] MEDS: ASPIRIN EC 81MG TABLET 81 MG PO (09:24)
[2024-11-04] MEDS: buPROPion HCl SR 150MG TAB 150 MG PO (09:24)
--- NOTE | 2024-11-04 09:29 | EXP.PULM.CON ---
History of Present Illness History of present illness: Ms. Hansen is a 79-year-old female recently had hospital admissions for aspiration pneumonia discharged home presented to the hospital again with worsening respiratory distress, antibiotics were changed to Augmentin along with prednisone presented to the ER again with worsening respiratory distress and pulmonary was called for further evaluation and management. Patient admits improved respiratory symptoms since her most recent discharge from her admission at an onset worsening respiratory distress and chest pain yesterday that prompted her to present to the ER. [facility] Disclaimer: The information contained in this section may have been updated after the patient was seen, as this information can be updated by other users. Medical History (Updated 11/04/24 @ 12:37 by Nella Martinez MD) Organizing pneumonia Acute respiratory distress syndrome (ARDS) Elevated troponin Vulvar lesion Vasomotor symptoms due to menopause Unstable angina Parotitis Encounter for pre-operative cardiovascular clearance Chest pressure ARDS (adult respiratory distress syndrome) Pneumonia Thyroid nodule Memory loss Ataxia, unspecified Lumbago with sciatica, left side Primary generalized (osteo)arthritis Vitamin D deficiency, unspecified Abnormal electrocardiogram [ECG] [EKG] Fibromyalgia Abnormal EKG Diastolic dysfunction HTN (hypertension) HLD (hyperlipidemia) Gastroesophageal reflux disease Surgical History History of tonsillectomy Presence of artificial knee joint, bilateral History of cholecystectomy H/O total hysterectomy Family History Other Family history of Alzheimer disease Family history of cancer Social History (Updated 11/04/24 @ 05:32 by Faustina Banks RN) Smoking Status: Never smoker second hand exposure: No alcohol intake: never substance use type: denies use current occupational status: other Travel in the last 8 weeks: None household members: spouse housing: house current occupational exposures/hazards: No caffeine: Yes Review of Systems Constitutional Constitutional: Reports anorexia, Reports body ache(s) and Reports fatigue Eyes Eyes: Denies eye discharge, Denies dry eyes, Denies irritation and Denies itchy eyes ENT Ears, Nose, Mouth, and Throat: Denies epistaxis, Denies facial pain, Denies lip swelling and Denies throat swelling *Cardiovascular Cardiovascular: Reports chest pain, Reports dyspnea and Reports dyspnea on exertion *Respiratory Respiratory: Denies change in phlegm color, Reports chest congestion, Reports cough, Reports dyspnea, Reports dyspnea on exertion, Denies excessive phlegm production, Denies hemoptysis, Denies pain on inspiration, Denies pain with cough and Denies wheezing *Gastrointestinal Gastrointestinal: Denies abdominal pain, Denies belching and Denies cramping *Musculoskeletal Musculoskeletal: Reports back pain, Reports myalgias and Reports other (No small joint swelling or Pain) Psychiatric Psychiatric: Denies homicidal ideation and Denies suicidal ideation Endocrine Endocrine: Reports fatigue and Denies heat intolerance Hematologic/Lymphatic Hematologic/Lymphatic: Denies easy bleeding and Denies lymphadenopathy Allergic/Immunologic Allergic/Immunologic: Denies itchy eyes, Denies lip swelling, Denies throat swelling and Denies wheezing Pulmonology Exam Inpatient Vital signs and Labs for Last 24 Hours: Temp Pulse Resp BP Pulse Ox O2 Del Method O2 Flow Rate 97.8 F 58 L 18 116/61 97 Nasal Cannula 2 11/04/24 08:00 11/04/24 08:00 11/04/24 08:00 11/04/24 08:00 11/04/24 08:00 11/04/24 08:00 11/04/24 08:00 Laboratory Results - last 24 hr 11/04/24 01:07: WBC 14.2 H, RBC 3.89 L, Hgb 11.2 L, Hct 33.9 L, MCV 87.1, MCH 28.8, MCHC 33.0, RDW 13.2, Plt Count 358, MPV 9.9, Neut % (Auto) 70.4, Lymph % (Auto) 15.5, [place] % (Auto) 11.6 H, Eos % (Auto) 1.0, Baso % (Auto) 0.4, Neut # (Auto) 10.0 H, Lymph # (Auto) 2.2, [place] # (Auto) 1.6 H, Eos # (Auto) 0.1, Baso # (Auto) 0.1, PT 9.9, INR 0.89 L, Sodium 137, Potassium 4.1, Chloride 101, Carbon Dioxide 30, Anion Gap 10.1, BUN 15, Creatinine 0.50 L, Estimated Creat Clear 41, Estimated GFR 119, Est GFR ( Amer) 144, Glucose 118 H, Calcium 8.9, Total Bilirubin 0.7, AST 42 H, ALT 85 H, Alkaline Phosphatase 123, Troponin I < 0.01, NT-Pro-B Natriuret Pep 152, Total Protein 6.3, Albumin 3.5, Globulin 2.8, Albumin/Globulin Ratio 1.3, Chlamy pneumoniae PCR Not detected, Adenovirus (PCR) Not detected, B. pertussis DNA (PCR) Not detected, Coronavirus OC43 (PCR) Not detected, Coronavirus HKU1 (PCR) Not detected, Coronavirus 229E (PCR) Not detected, SARS-CoV-2 (PCR) Not detected, Coronavirus NL63 (PCR) Not detected, Human Metapneumovir PCR Not detected, Influenza A (H1) PCR Not detected, Influ A (H1N1/09) PCR Not detected, Influenza A (H3) PCR Not detected, Influenza Type A (PCR) Not detected, Influenza Type B (PCR) Not detected, M. pneumoniae (PCR) Not detected, Parainfluenza 1 (PCR) Not detected, Parainfluenza 2 (PCR) Not detected, Parainfluenza 3 (PCR) Not detected, Parainfluenza 4 (PCR) Not detected, RSV (PCR) Not detected, Entero/Rhino (PCR) Not detected 11/04/24 01:09: VBG pH 7.42 H, VBG pCO2 41.8, VBG pO2 75.2 H, VBG HCO3 26.4, VBG Total CO2 27.7 H, VBG O2 Saturation 95.4 H, VBG Base Excess 2.0, VBG Lactic Acid 1.3 11/04/24 01:10: APTT 23.0 11/04/24 04:00: Lactate 1.1, Troponin I < 0.01 11/04/24 05:42: WBC 13.5 H, RBC 3.73 L, Hgb 10.5 L, Hct 32.7 L, MCV 87.7, MCH 28.2, MCHC 32.1, RDW 13.1, Plt Count 334, MPV 10.3, Neut % (Auto) 67.3, Lymph % (Auto) 18.7, [place] % (Auto) 11.2 H, Eos % (Auto) 1.3, Baso % (Auto) 0.4, Neut # (Auto) 9.1 H, Lymph # (Auto) 2.5, [place] # (Auto) 1.5 H, Eos # (Auto) 0.2, Baso # (Auto) 0.1, Sodium 136, Potassium 4.0, Chloride 102, Carbon Dioxide 28, Anion Gap 10.0, BUN 14, Creatinine 0.40 L, Estimated Creat Clear 42, Estimated GFR 154, Est GFR ( Amer) 186 D, Glucose 106 H, Calcium 8.7, Magnesium 2.0, Total Bilirubin 0.9, AST 45 H, ALT 71, Alkaline Phosphatase 113, Troponin I < 0.01, Total Protein 5.8 L, Albumin 3.2 L, Globulin 2.6, Albumin/Globulin Ratio 1.2, Triglycerides 105, Cholesterol 128 L, LDL Cholesterol Direct 63.02 L, VLDL Cholesterol 21, HDL Cholesterol 41, Cholesterol/HDL Ratio 3.1 I & O for Labs for Last 24 Hours: Intake & Output 11/01/24 11/02/24 11/03/24 11/04/24 23:59 23:59 23:59 23:59 Intake Total 180 / 180 Balance 180 / 180 Weight 127 lb 6.4 oz Constitutional: Present moderate distress Head: Present normocephalic and atraumatic ENT: Present normal exam, normal oropharynx and mucous membranes moist Neck: Present normal inspection and full ROM Respiratory: Present respiratory distress and able to speak in complete sentences; Absent wheezes or crackles Cardiac: Present S1/S2, Tachycardia and radial pulses present GI: Present soft and distention; Absent tenderness or guarding Rectal (female): Present deferred (female): Present deferred Skin: Present intact; Absent cyanosis or jaundice Neuro: Present alert, awake and oriented x 3 Extremities: Present normal inspection; Absent clubbing or cyanosis Psychiatric: Present normal affect and cooperative Meds Home Medications and Allergies Home Medications ?Medication ?Instructions ?Recorded ?Confirmed ?Type aspirin 81 mg tablet,delayed 81 mg PO DAILY 04/22/18 11/04/24 History release volrsrmt-dsqo-rpuz 8 mg-folic 400 1 tab PO DAILY 09/17/20 11/04/24 History mcg-K 50 mcg-lutein 300 mcg tablet (Centrum Silver Women) hydrocortisone 2.5 % topical cream 1 applic topical DIRECTED Skin 10/31/21 11/04/24 History Condition gabapentin 100 mg capsule 100 mg PO BIDP PRN nerve pain 05/15/23 11/04/24 History metoprolol succinate 25 mg 25 mg PO DAILY #90 tabs 12/10/23 11/04/24 Rx tablet,extended release 24 hr cholecalciferol (vitamin D3) 75 3,000 unit PO DAILY 03/11/24 11/04/24 History mcg (3,000 unit) tablet bupropion HCl 150 mg tablet,12 hr 150 mg PO DAILY #90 ea 08/12/24 11/04/24 Rx sustained-release omeprazole 20 mg capsule,delayed 20 mg PO DAILY #30 caps 09/11/24 11/04/24 Rx release citalopram 20 mg tablet 20 mg PO DAILY 10/17/24 11/04/24 History losartan 100 mg tablet 100 mg PO DAILY 10/17/24 11/04/24 History atorvastatin 80 mg tablet 80 mg PO HS #30 tabs 10/21/24 11/04/24 Rx apixaban 5 mg tablet (Eliquis) 5 mg PO BID #30 tabs 11/04/24 Rx apixaban 5 mg tablet (Eliquis) 10 mg (2 x 5 mg) PO BID 9 days #36 11/04/24 Rx tabs New Prescriptions to Start Prescriptions: marcexaban [Eliquis] Wayne Plummer apixaban [Eliquis] Wayne Plummer Allergies Allergy/AdvReac Type Severity Reaction Status Date / Time morphine Allergy Unknown Verified 10/28/24 13:53 allergy reaction propoxyphene (From Darvon) Allergy Unknown Verified 10/28/24 13:53 allergy reaction thimerosal (From Merthiolate Allergy Unknown Verified 10/28/24 13:53 (thimerosal)) allergy reaction Results Laboratory Findings 11/04/24 05:42 11/04/24 05:42 PT/INR, D-dimer PT 9.9 seconds (9.2-12.1) 11/04/24 01:07 INR 0.89 (0.9-1.1) L 11/04/24 01:07 Abnormal lab findings: Abnormal Labs 11/04/24 11/04/24 11/04/24 01:07 01:09 05:42 WBC 14.2 H 13.5 H RBC 3.89 L 3.73 L Hgb 11.2 L 10.5 L Hct 33.9 L 32.7 L [place] % (Auto) 11.6 H 11.2 H Neut # (Auto) 10.0 H 9.1 H [place] # (Auto) 1.6 H 1.5 H INR 0.89 L VBG pH 7.42 H VBG pO2 75.2 H VBG Total CO2 27.7 H VBG O2 Saturation 95.4 H Creatinine 0.50 L 0.40 L Glucose 118 H 106 H AST 42 H 45 H ALT 85 H Total Protein 5.8 L Albumin 3.2 L Cholesterol 128 L LDL Cholesterol Direct 63.02 L Assessment and Plan *Assessment and plan (1) Pulmonary emboli: Status: Acute Category: Medical Code(s): I26.99 - Other pulmonary embolism without acute cor pulmonale (2) Organizing pneumonia: Status: Acute Category: Medical Code(s): J84.89 - Other specified interstitial pulmonary diseases Plan Ms. Hansen is a 79-year-old female recently had hospital admissions for aspiration pneumonia discharged home presented to the hospital again with worsening respiratory distress, antibiotics were changed to Augmentin along with prednisone presented to the ER again with worsening respiratory distress and pulmonary was called for further evaluation and management. Patient admits improved respiratory symptoms since her most recent discharge from her admission at an onset worsening respiratory distress and chest pain yesterday that prompted her to present to the ER. CTA on this admission bilateral pulmonary embolism with with reported right heart strain. Significant improvement in the bilateral noted airspace disease with residual interstitial changes concerning for organizing pneumonia. Small right pleural effusion. Troponins within normal upon this admission. Mild neutrophilic predominant leukocytosis. On examination moderate respiratory distress. Stable 2 L nasal cannula oxygen supplementation. Plan: Continue anticoagulation for likely 6 weeks for provoked pulmonary embolism. Initiate prednisone 40 mg daily for 2 weeks followed by taper for 20 for 2 weeks and 10 for 2 weeks. Will follow in pulmonary clinic
--- NOTE | 2024-11-04 11:51 | EXP.DC.SUM ---
General Admission date:: 11/04/24 HPI HPI HPI: presents to the ER for shortness of breath that seems to worsen this evening. Patient had surgery on the for kyphoplasty but ended up being admitted for aspiration pneumonia. She was able to be discharged but then was readmitted to our hospital with ARDS and was discharged 2 days later. She has been wearing 2 L nasal cannula at home for oxygen support. She reports she is having spasm from her right shoulder blade down the right side of her thorax that is worse with deep breathing. She reports she has no history of blood clot, no swelling in the legs, no chest pain or pressure. She reports she was trying to use her incentive spirometer tonight and could not get it to go up nearly as far as she could get it this morning. Family reports that patient seemed to do really well when she was on steroids but since she has stopped steroids seems to be worsening again. No fevers, chills, congestion, nausea, vomiting, diarrhea, or other associated symptoms. CT with acute bilateral PE. Appear distal targets. no CT RV strain. no pocus rv strain per ED. negative biomarkers. discussed plan with debbie Hospital Course Hospital Course Hospital Course: Sarah Stevenson is a 79-year-old female who presents with worsening respiratory distress and admitted for bilateral pulmonary embolism and left lower extremity DVT. #Chronic hypoxic respiratory failure #Bilateral pulmonary emboli #Left lower extremity DVT ? CTA chest revealed bilateral pulmonary emboli, with ultrasound revealing left lower extremity DVT. ? Patient remained stable on 2 L which is baseline for her since her aspiration pneumonia this past month. ? ECHO reveals mild right ventricular dilation, but with no other acute abnormalities. ? Started on therapeutic Lovenox, transition to Eliquis 10 mg twice daily for a total of 7 days, then 5 mg twice daily. ? Will keep patient on anticoagulation for 3 to 6 months given provoked DVT in the setting of recent hospitalizations. ? Medically stable for discharge. Continue home health. Will follow-up with pulmonology within 2 weeks. #Aspiration pneumonia, subacute Recently hospitalized for aspiration pneumonia. Pulmonology recommends steroid taper with prednisone 40 mg daily for 2 weeks followed by taper for 20 for 2 weeks and 10 for 2 weeks. #LBBB #CAD - Chronic, stable. Continue aspirin, statin. #HTN #HLD - Continue home medication #Chronic pain #Recent kyphoplasty - Continue home [place]. Total time spent on discharge: 32 minutes on chart review, counseling, documentation, and direct care with patient. Exam Data for Last 24 hours Vital signs and Labs for Last 24 Hours: Temp Pulse Resp BP Pulse Ox O2 Del Method O2 Flow Rate 97.8 F 58 L 18 116/61 97 Nasal Cannula 2 11/04/24 08:00 11/04/24 08:00 11/04/24 08:00 11/04/24 08:00 11/04/24 08:00 11/04/24 09:00 11/04/24 09:00 Laboratory Results - last 24 hr 11/04/24 01:07: WBC 14.2 H, RBC 3.89 L, Hgb 11.2 L, Hct 33.9 L, MCV 87.1, MCH 28.8, MCHC 33.0, RDW 13.2, Plt Count 358, MPV 9.9, Neut % (Auto) 70.4, Lymph % (Auto) 15.5, [place] % (Auto) 11.6 H, Eos % (Auto) 1.0, Baso % (Auto) 0.4, Neut # (Auto) 10.0 H, Lymph # (Auto) 2.2, [place] # (Auto) 1.6 H, Eos # (Auto) 0.1, Baso # (Auto) 0.1, PT 9.9, INR 0.89 L, Sodium 137, Potassium 4.1, Chloride 101, Carbon Dioxide 30, Anion Gap 10.1, BUN 15, Creatinine 0.50 L, Estimated Creat Clear 41, Estimated GFR 119, Est GFR ( Amer) 144, Glucose 118 H, Calcium 8.9, Total Bilirubin 0.7, AST 42 H, ALT 85 H, Alkaline Phosphatase 123, Troponin I < 0.01, NT-Pro-B Natriuret Pep 152, Total Protein 6.3, Albumin 3.5, Globulin 2.8, Albumin/Globulin Ratio 1.3, Chlamy pneumoniae PCR Not detected, Adenovirus (PCR) Not detected, B. pertussis DNA (PCR) Not detected, Coronavirus OC43 (PCR) Not detected, Coronavirus HKU1 (PCR) Not detected, Coronavirus 229E (PCR) Not detected, SARS-CoV-2 (PCR) Not detected, Coronavirus NL63 (PCR) Not detected, Human Metapneumovir PCR Not detected, Influenza A (H1) PCR Not detected, Influ A (H1N1/09) PCR Not detected, Influenza A (H3) PCR Not detected, Influenza Type A (PCR) Not detected, Influenza Type B (PCR) Not detected, M. pneumoniae (PCR) Not detected, Parainfluenza 1 (PCR) Not detected, Parainfluenza 2 (PCR) Not detected, Parainfluenza 3 (PCR) Not detected, Parainfluenza 4 (PCR) Not detected, RSV (PCR) Not detected, Entero/Rhino (PCR) Not detected 11/04/24 01:09: VBG pH 7.42 H, VBG pCO2 41.8, VBG pO2 75.2 H, VBG HCO3 26.4, VBG Total CO2 27.7 H, VBG O2 Saturation 95.4 H, VBG Base Excess 2.0, VBG Lactic Acid 1.3 11/04/24 01:10: APTT 23.0 11/04/24 04:00: Lactate 1.1, Troponin I < 0.01 11/04/24 05:42: WBC 13.5 H, RBC 3.73 L, Hgb 10.5 L, Hct 32.7 L, MCV 87.7, MCH 28.2, MCHC 32.1, RDW 13.1, Plt Count 334, MPV 10.3, Neut % (Auto) 67.3, Lymph % (Auto) 18.7, [place] % (Auto) 11.2 H, Eos % (Auto) 1.3, Baso % (Auto) 0.4, Neut # (Auto) 9.1 H, Lymph # (Auto) 2.5, [place] # (Auto) 1.5 H, Eos # (Auto) 0.2, Baso # (Auto) 0.1, Sodium 136, Potassium 4.0, Chloride 102, Carbon Dioxide 28, Anion Gap 10.0, BUN 14, Creatinine 0.40 L, Estimated Creat Clear 42, Estimated GFR 154, Est GFR ( Amer) 186 D, Glucose 106 H, Calcium 8.7, Magnesium 2.0, Total Bilirubin 0.9, AST 45 H, ALT 71, Alkaline Phosphatase 113, Troponin I < 0.01, Total Protein 5.8 L, Albumin 3.2 L, Globulin 2.6, Albumin/Globulin Ratio 1.2, Triglycerides 105, Cholesterol 128 L, LDL Cholesterol Direct 63.02 L, VLDL Cholesterol 21, HDL Cholesterol 41, Cholesterol/HDL Ratio 3.1 I & O for Last 24 hours: Intake & Output 11/01/24 11/02/24 11/03/24 11/04/24 23:59 23:59 23:59 23:59 Intake Total 180 / 180 Output Total 400 / 400 Balance -220 / -220 Weight 57.788 kg Constitutional Constitutional: no acute distress *Routine HEENT Exam Head: Present normocephalic Eye: Present EOMI and PERRL ENT: Present mucous membranes moist *Routine Neck Exam Neck: Present supple; Absent lymphadenopathy *Routine Respiratory Exam Respiratory: Present crackles; Absent CTA bilaterally *Routine Cardiovascular Exam Cardiovascular: Present RRR *Routine Abdominal Exam Abdominal: Present soft and normoactive bowel sounds; Absent tenderness *Routine Extremities Exam Extremities: Absent cyanosis, clubbing or edema *Routine Skin Exam Skin: Present warm; Absent rash *Routine Neurological Exam Neurological: Present alert and oriented X3 Results Data Completed and Pending Labs on day of discharge: Labs from last 24 hours 11/04/24 11/04/24 11/04/24 05:42 04:00 01:10 WBC 13.5 H RBC 3.73 L Hgb 10.5 L Hct 32.7 L MCV 87.7 MCH 28.2 MCHC 32.1 RDW 13.1 Plt Count 334 MPV 10.3 Neut % (Auto) 67.3 Lymph % (Auto) 18.7 [place] % (Auto) 11.2 H Eos % (Auto) 1.3 Baso % (Auto) 0.4 Neut # (Auto) 9.1 H Lymph # (Auto) 2.5 [place] # (Auto) 1.5 H Eos # (Auto) 0.2 Baso # (Auto) 0.1 PT INR APTT 23.0 VBG pH VBG pCO2 VBG pO2 VBG HCO3 VBG Total CO2 VBG O2 Saturation VBG Base Excess VBG Lactic Acid Sodium 136 Potassium 4.0 Chloride 102 Carbon Dioxide 28 Anion Gap 10.0 BUN 14 Creatinine 0.40 L Estimated Creat Clear 42 Estimated GFR 154 Est GFR ( Amer) 186 D Glucose 106 H Lactate 1.1 Calcium 8.7 Magnesium 2.0 Total Bilirubin 0.9 AST 45 H ALT 71 Alkaline Phosphatase 113 Troponin I < 0.01 < 0.01 NT-Pro-B Natriuret Pep Total Protein 5.8 L Albumin 3.2 L Globulin 2.6 Albumin/Globulin Ratio 1.2 Triglycerides 105 Cholesterol 128 L LDL Cholesterol Direct 63.02 L VLDL Cholesterol 21 HDL Cholesterol 41 Cholesterol/HDL Ratio 3.1 Chlamy pneumoniae PCR Adenovirus (PCR) B. pertussis DNA (PCR) Coronavirus OC43 (PCR) Coronavirus HKU1 (PCR) Coronavirus 229E (PCR) SARS-CoV-2 (PCR) Coronavirus NL63 (PCR) Human Metapneumovir PCR Influenza A (H1) PCR Influ A (H1N1/09) PCR Influenza A (H3) PCR Influenza Type A (PCR) Influenza Type B (PCR) M. pneumoniae (PCR) Parainfluenza 1 (PCR) Parainfluenza 2 (PCR) Parainfluenza 3 (PCR) Parainfluenza 4 (PCR) RSV (PCR) Entero/Rhino (PCR) 11/04/24 11/04/24 01:09 01:07 WBC 14.2 H RBC 3.89 L Hgb 11.2 L Hct 33.9 L MCV 87.1 MCH 28.8 MCHC 33.0 RDW 13.2 Plt Count 358 MPV 9.9 Neut % (Auto) 70.4 Lymph % (Auto) 15.5 [place] % (Auto) 11.6 H Eos % (Auto) 1.0 Baso % (Auto) 0.4 Neut # (Auto) 10.0 H Lymph # (Auto) 2.2 [place] # (Auto) 1.6 H Eos # (Auto) 0.1 Baso # (Auto) 0.1 PT 9.9 INR 0.89 L APTT VBG pH 7.42 H VBG pCO2 41.8 VBG pO2 75.2 H VBG HCO3 26.4 VBG Total CO2 27.7 H VBG O2 Saturation 95.4 H VBG Base Excess 2.0 VBG Lactic Acid 1.3 Sodium 137 Potassium 4.1 Chloride 101 Carbon Dioxide 30 Anion Gap 10.1 BUN 15 Creatinine 0.50 L Estimated Creat Clear 41 Estimated GFR 119 Est GFR ( Amer) 144 Glucose 118 H Lactate Calcium 8.9 Magnesium Total Bilirubin 0.7 AST 42 H ALT 85 H Alkaline Phosphatase 123 Troponin I < 0.01 NT-Pro-B Natriuret Pep 152 Total Protein 6.3 Albumin 3.5 Globulin 2.8 Albumin/Globulin Ratio 1.3 Triglycerides Cholesterol LDL Cholesterol Direct VLDL Cholesterol HDL Cholesterol Cholesterol/HDL Ratio Chlamy pneumoniae PCR Not detected Adenovirus (PCR) Not detected B. pertussis DNA (PCR) Not detected Coronavirus OC43 (PCR) Not detected Coronavirus HKU1 (PCR) Not detected Coronavirus 229E (PCR) Not detected SARS-CoV-2 (PCR) Not detected Coronavirus NL63 (PCR) Not detected Human Metapneumovir PCR Not detected Influenza A (H1) PCR Not detected Influ A (H1N1/09) PCR Not detected Influenza A (H3) PCR Not detected Influenza Type A (PCR) Not detected Influenza Type B (PCR) Not detected M. pneumoniae (PCR) Not detected Parainfluenza 1 (PCR) Not detected Parainfluenza 2 (PCR) Not detected Parainfluenza 3 (PCR) Not detected Parainfluenza 4 (PCR) Not detected RSV (PCR) Not detected Entero/Rhino (PCR) Not detected DS: Diagnosis Discharge Diagnosis (1) Pulmonary emboli: Status: Acute Code(s): I26.99 - Other pulmonary embolism without acute cor pulmonale (2) Left bundle branch block: Status: Chronic Code(s): I44.7 - Left bundle-branch block, unspecified (3) CAD (coronary artery disease): Status: Chronic Code(s): I25.10 - Atherosclerotic heart disease of [place] coronary artery without angina pectoris Qualifiers: Associated angina: without angina Coronary Disease-Associated Artery/Lesion type: [place] artery [place] vs. transplanted heart: [place] heart Qualified Code(s): I25.10 - Atherosclerotic heart disease of [place] coronary artery without angina pectoris (4) HTN (hypertension): Status: Chronic Code(s): I10 - Essential (primary) hypertension Qualifiers: Hypertension type: essential hypertension Qualified Code(s): I10 - Essential (primary) hypertension (5) HLD (hyperlipidemia): Status: Chronic Code(s): E78.5 - Hyperlipidemia, unspecified Qualifiers: Hyperlipidemia type: mixed hyperlipidemia Qualified Code(s): E78.2 - Mixed hyperlipidemia Meds Home Medications and Allergies Home Medications ?Medication ?Instructions ?Recorded ?Confirmed ?Type aspirin 81 mg tablet,delayed 81 mg PO DAILY 04/22/18 11/04/24 History release [id number] 8 mg-folic 400 1 tab PO DAILY 09/17/20 11/04/24 History mcg-K 50 mcg-lutein 300 mcg tablet (Centrum Silver Women) hydrocortisone 2.5 % topical cream 1 applic topical DIRECTED Skin 10/31/21 11/04/24 History Condition gabapentin 100 mg capsule 100 mg PO BIDP PRN nerve pain 05/15/23 11/04/24 History metoprolol succinate 25 mg 25 mg PO DAILY #90 tabs 12/10/23 11/04/24 Rx tablet,extended release 24 hr cholecalciferol (vitamin D3) 75 3,000 unit PO DAILY 03/11/24 11/04/24 History mcg (3,000 unit) tablet bupropion HCl 150 mg tablet,12 hr 150 mg PO DAILY #90 ea 08/12/24 11/04/24 Rx sustained-release omeprazole 20 mg capsule,delayed 20 mg PO DAILY #30 caps 09/11/24 11/04/24 Rx release citalopram 20 mg tablet 20 mg PO DAILY 10/17/24 11/04/24 History losartan 100 mg tablet 100 mg PO DAILY 10/17/24 11/04/24 History atorvastatin 80 mg tablet 80 mg PO HS #30 tabs 10/21/24 11/04/24 Rx apixaban 5 mg (74 tabs) tablets in 5 mg PO BID #74 tabs 11/04/24 Rx a dose pack (Eliquis DVT-PE Treat 30D Start) prednisone 20 mg tablet See Rx Instructions .Route 11/04/24 Rx .COMPLEX #49 tabs New Prescriptions to Start Prescriptions: apixaban [Eliquis DVT-PE Treat 30D Start] Wayne Plummer prednisone Wayne Plummer Allergies Allergy/AdvReac Type Severity Reaction Status Date / Time morphine Allergy Unknown Verified 10/28/24 13:53 allergy reaction propoxyphene (From Darvon) Allergy Unknown Verified 10/28/24 13:53 allergy reaction thimerosal (From Merthiolate Allergy Unknown Verified 10/28/24 13:53 (thimerosal)) allergy reaction Discharge Plan Disposition Patient Disposition: Home, Self-Care Condition: Fair Follow up Plan Follow up with: Jeancarlos Santizo MD [Primary Care Provider] - 11/13/24 10:45 am Nella Martinez MD [Physician] - 11/26/24 1:00 pm Prescriptions/Medication Reconciliation: New prednisone 20 mg tablet See Rx Instructions .ROUTE .COMPLEX Qty: 49 0RF Rx Instructions: Take 40 mg for 2 weeks, 20 mg for 2 weeks, then 10 mg for 2 weeks for a total of 6 weeks. Eliquis DVT-PE Treat 30D Start 5 mg (74 tabs) tablets,dose pack 5 mg PO BID Qty: 74 0RF Continued cholecalciferol (vitamin D3) 75 mcg (3,000 unit) tablet 3,000 unit PO DAILY Centrum Silver Women 8 mg iron-400 mcg-300 mcg tablet 1 tab PO DAILY gabapentin 100 mg capsule 100 mg PO BIDP PRN (Reason: nerve pain) hydrocortisone 2.5 % cream 1 applic TOPICAL DIRECTED metoprolol succinate 25 mg tablet extended release 24 hr 25 mg PO DAILY Qty: 90 3RF bupropion HCl 150 mg tablet sustained-release 12 hr 150 mg PO DAILY Qty: 90 1RF omeprazole 20 mg capsule,delayed release(DR/EC) 20 mg PO DAILY Qty: 30 3RF aspirin 81 MG tablet,delayed release (DR/EC) 81 mg PO DAILY citalopram 20 mg tablet 20 mg PO DAILY losartan 100 mg tablet 100 mg PO DAILY atorvastatin 80 mg tablet 80 mg PO HS Qty: 30 0RF Problem Reconciliation Problems Reviewed?: Yes Patient Discharge Instructions Patient Instructions: DI for Pulmonary Embolism Print Language: Japanese Providers Primary Care Provider: Jeancarlos Santizo Admit Provider: Justino Purdy Attending Provider: Justino Purdy
[2024-11-04] MEDS: GABAPENTIN 100MG CAPSULE 100 MG PO (12:14)
[2024-11-04 12:16] LABS: C-Reactive Protein 60.4 mg/L (0-4)
--- NOTE | 2024-11-04 15:19 | SW/DCPLANNER ---
Patient is currently established w/ [facility]. Per Katy / [facility] no further documentation is needed and services will resume at time of discharge. I have updated Katy that patient will discharge home today.
--- NOTE | 2024-11-06 10:53 | SW/DCPLANNER ---
Spoke with patient on the phone. Patient stated that she is aware of her upcoming appointments. Patient stated that she was able to get her new medicine. Patient stated that she feels like she is doing much better. Patient stated that she has no concern or questions at this time. Amy. SANDY English
== END 2024-11-04 15:41 | disposition home or self-care (01) ==
LOC: ER 02:31 → 2ND 06:16
PROVIDERS: Internal Medicine Pulmonary Disease; Student in an Organized Health Care Education/Training Program; Admitting Provider Internal Medicine Adolescent Medicine; Emergency Provider Emergency Medicine; PCP Internal Medicine; Visit Provider Internal Medicine Adolescent Medicine
DX: I26.99 Other pulmonary embolism without acute cor pulmonale (principal); I82.452 Acute embolism and thrombosis of left peroneal vein; I44.7 Left bundle-branch block, unspecified; I25.10 Atherosclerotic heart disease of native coronary artery without angina pectoris; I10 Essential (primary) hypertension; J96.11 Chronic respiratory failure with hypoxia; E78.2 Mixed hyperlipidemia; J84.89 Other specified interstitial pulmonary diseases; Z79.899 Other long term (current) drug therapy; Z99.81 Dependence on supplemental oxygen; E55.9 Vitamin D deficiency, unspecified; D64.9 Anemia, unspecified
CPT/HCPCS: 36415; 71275; 80053; 80061; 82803; 83605; 83735; 83880; 84484; 85025; 85610; 85730; 86140; 87633; 93005; 93308; 93970; 99291; G0378; J1650; Q9967

== ENCOUNTER 2024-11-25 16:35 | Outpatient (CLI) | payer MEDICARE, OTHER, SELFPAY ==
[2024-11-25 17:27] LABS: Basophils % 0.3 % (0.1-2.0); Eosinophils % 0.2 % (0.1-12.0); Hematocrit 38.5 % (37.0-47.0); Hemoglobin 12.6 g/dL (12.2-16.2); Lymphocytes # 1.2 K/mm3 (0.7-4.5); Lymphocytes % 11.5 % (10-50); Mean Corpuscular HGB Conc 32.7 g/dL (31.8-35.4); Mean Corpuscular Hemoglobin 28.7 pg (27.0-31.2); Mean Corpuscular Volume 87.7 fl (81-99); Mean Platelet Volume 10.3 fl (7.4-10.4); Monocytes # 0.3 K/mm3 (0.1-1.0); Monocytes % 2.5 % (1.7-9.3); Neutrophils # 8.7 K/mm3 (1.8-7.8); Neutrophils % 84.7 % (37.0-80.0); Platelet Count 255 K/mm3 (142-424); Red Blood Count 4.39 M/mm3 (4.20-5.40); Red Cell Distribution Width 14.2 % (11.5-17.5); White Blood Count 10.3 K/mm3 (4.8-10.8)
[2024-11-25 22:27] LABS: Chloride 102 mmol/L (98-107); Potassium 4.3 mmoL/L (3.5-5.1); Sodium 140 mmol/L (136-145)
[2024-11-25 22:30] LABS: Alanine Aminotransferase 50 U/L (12-78); Albumin/Globulin Ratio 1.7 (1.1-1.8); Alkaline Phosphatase 91 U/L (38-126); Anion Gap 13.3 mEq/L (5-15); Aspartate Amino Transferase 36 U/L (14-36); Bilirubin,Total 0.9 mg/dl (0.2-1.3); Calcium 9.2 mg/dl (8.4-10.2); Carbon Dioxide 29 mmol/L (22.0-30.0); Globulin 2.3 g/dL (1.3-3.2); Glucose 92 mg/dl (74-100); Total Protein,Serum 6.3 g/dl (6.3-8.2)
[2024-11-25 22:35] LABS: Blood Urea Nitrogen 18 mg/dl (7-17); Estimated Glomerular Filt Rate 96 ml/min (>60); GFR (African American) 117 ML/MIN (>60)
== END 2024-11-25 23:59 | disposition home or self-care (01) ==
LOC: LAB.DROPOF 16:36
PROVIDERS: PCP Internal Medicine; Visit Provider Internal Medicine
DX: R74.8 Abnormal levels of other serum enzymes (principal); I10 Essential (primary) hypertension; D64.9 Anemia, unspecified
CPT/HCPCS: 80053; 85025

== ENCOUNTER 2024-12-29 14:09 | Outpatient (POV) | payer MEDICARE, OTHER, SELFPAY ==
--- NOTE | 2024-12-29 14:34 | A.OFFVIS_ITS ---
[facility] Disclaimer: The information contained in this section may have been updated after the patient was seen, as this information can be updated by other users. 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 Organizing pneumonia Acute respiratory distress syndrome (ARDS) Elevated troponin Vulvar lesion Vasomotor symptoms due to menopause Unstable angina Parotitis Encounter for pre-operative cardiovascular clearance Chest pressure ARDS (adult respiratory distress syndrome) Pneumonia Thyroid nodule Memory loss Ataxia, unspecified Lumbago with sciatica, left side Primary generalized (osteo)arthritis Vitamin D deficiency, unspecified Abnormal electrocardiogram [ECG] [EKG] Fibromyalgia Abnormal EKG Diastolic dysfunction HTN (hypertension) HLD (hyperlipidemia) Gastroesophageal reflux disease Surgical History History of tonsillectomy Presence of artificial knee joint, bilateral History of cholecystectomy H/O total hysterectomy Family History Other Family history of Alzheimer disease Family history of cancer Social History (Updated 12/24/24 @ 13:07 by SHUN Ventura) Smoking Status: Former smoker second hand exposure: No alcohol intake: never substance use type: denies use current occupational status: other Travel in the last 8 weeks: None household members: spouse housing: house current occupational exposures/hazards: No caffeine: Yes PM Subjective & Objective Subjective Subjective:: Patient is a pleasant 79-year-old female who presents today for 2-month follow- up. Today she rates her pain a 9 out of 10. Since her last appointment in October patient has been dealing with ongoing respiratory issues. Patient ultimately being hospitalized in October due to pneumonia. Patient also makes mention that here just recently she was at home and felt in the all over tingling sensation both in her arms legs. She described it as a whole body electricity feeling . Patient decided to come to the doctors due to this sensation and ultimately got diagnosed with bilateral PEs. Patient is on Eliquis until May 07. She is following up with pulmonology. Patient does also make mention that about 3 weeks ago she did have an accident where she tripped on the vacuum carbonating stone cleaner and fell landing on her left knee and lower leg. Patient does still have bruising in this location however states this is much better from what it had been. Patient does also make mention that she just feels that she is still weak in her overall low back area and typically feels like she leans forward. Patient does state her overall pain related to the kyphoplasty seems to be doing okay. Her August has been reviewed. Review of Systems: General: No recent weight changes, no fever, no sleep disturbances Respiratory: No cough, no shortness of air, no recurring pulmonary infections Cardiovascular/peripheral vascular: No chest pain, no palpitations, no edema, no shortness of breath Gastrointestinal: No new onset incontinence, normal bowel movements reported Genitourinary: No new onset incontinence Musculoskeletal: Low back pain, abdominal pain Psychiatric: [Normal mood/affect] Neurological: [Denies weakness in extremities], [denies balance issues] Pain at rest (0-10 scale): 9 Objective Objective:: Physical Exam: General: Alert and oriented x3, no acute distress, pleasant and cooperative Lungs: Respirations even and unlabored, symmetrical chest expansion Eyes: PERRL Musculoskeletal: Flexion and extension of lumbar [spine] somewhat guarded secondary to pain, [antalgic gait noted] Neurological: Speech clear, no gross sensory deficit Has patient had previous pain injection?: No Conservative treatment options previously tried: Home exercise plan Length of treatment: Longer than 12 weeks Meds Home Medications and Allergies Home Medications ?Medication ?Instructions ?Recorded ?Confirmed ?Type aspirin 81 mg tablet,delayed 81 mg PO DAILY 04/22/18 12/24/24 History release hydrocortisone 2.5 % topical cream 1 applic topical DIRECTED Skin 10/31/21 12/24/24 History Condition gabapentin 100 mg capsule 100 mg PO BIDP PRN nerve pain 05/15/23 12/24/24 History metoprolol succinate 25 mg 25 mg PO DAILY #90 tabs 12/10/23 12/24/24 Rx tablet,extended release 24 hr bupropion HCl 150 mg tablet,12 hr 150 mg PO DAILY #90 ea 08/12/24 12/24/24 Rx sustained-release omeprazole 20 mg capsule,delayed 20 mg PO DAILY #30 caps 09/11/24 12/24/24 Rx release citalopram 20 mg tablet 20 mg PO DAILY 10/17/24 12/24/24 History losartan 100 mg tablet 100 mg PO DAILY 10/17/24 12/24/24 History atorvastatin 80 mg tablet 80 mg PO HS #30 tabs 10/21/24 12/24/24 Rx cholecalciferol (vitamin D3) 75 4,000 unit PO DAILY 11/25/24 12/24/24 History mcg (3,000 unit) tablet apixaban 5 mg tablet 5 mg PO BID #180 tabs 12/24/24 12/24/24 Rx New Prescriptions to Start Prescriptions: Allergies Allergy/AdvReac Type Severity Reaction Status Date / Time morphine Allergy Unknown Verified 12/24/24 13:03 allergy reaction propoxyphene (From Darvon) Allergy Unknown Verified 12/24/24 13:03 allergy reaction thimerosal (From Merthiolate Allergy Unknown Verified 12/24/24 13:03 (thimerosal)) allergy reaction Assessment and Plan *Assessment and plan (1) Abdominal pain: Status: Acute Category: Medical Code(s): R10.9 - Unspecified abdominal pain (2) Degenerative disc disease, lumbar: Status: Chronic Category: Medical Code(s): M51.369 - Other intervertebral disc degeneration, lumbar region without mention of lumbar back pain or lower extremity pain (3) Low back pain: Status: Acute Category: Medical Code(s): M54.50 - Low back pain, unspecified Plan I did discuss with the patient that this her leaning forward may be more related to spinal stenosis that her body is instinctively leaning forward into the position that opens up the canal space best. I did discuss with patient that there are possible additional injections we can do for the low back pain however since she has had so much going on with the ongoing pulmonary embolisms that I would like to wait. I will order the patient physical therapy and I did crisis intervention counselor her to continue to use her compounded cream. Patient's abdominal pain during today's visit was mentioned that it can be more muscular and that we did talk about additional muscle relaxers however patient is on a lot of medications and would like to hold off on this option. Patient is using Tylenol 500 mg with 2 tablets as needed and does state that this does seem to help when she does require additional medication. We will follow-up with her in 1 month for reevaluation of her symptoms and plan of care. Patient has been instructed to contact the clinic with any concerns before the next appointment. Dr. Alonzo has reviewed this note and agrees with this plan of care. This note was dictated using voice recognition software and make contain errors or omissions. All injections are used with Lidocaine, Bupivacaine and Depo Medrol. Occasionally urine drug screen is needed to verify patient's compliance with our office pain contract. This is ordered based off specific treatments related to chronic pain with the potential to abuse certain medications.
[2024-12-29 15:34] VITALS: BP 140/80; PULSE 57; RESP 16; O2SAT 98; BMI 25.2
== END 2024-12-29 23:59 | disposition home or self-care (01) ==
PROVIDERS: PCP Internal Medicine; Visit Provider Nurse Practitioner Family
DX: R10.9 Unspecified abdominal pain (principal); M51.369 Other intervertebral disc degeneration, lumbar region without mention of lumbar back pain or lower extremity pain; M54.50 Low back pain, unspecified; Z96.653 Presence of artificial knee joint, bilateral; Z87.891 Personal history of nicotine dependence
CPT/HCPCS: 99212; G0463

== ENCOUNTER 2025-01-28 10:03 | Outpatient (POV) | payer MEDICARE, OTHER, SELFPAY ==
--- OUTSIDE RECORDS SUMMARY | 2025-01-28 10:08 | XMS_ITS | Data Portability ---
Author Organization [facility], [facility] CL[facility]ED Address [address] [place] [address] Assessment Encounter Date Assessment Date Assessment LastModified by Organization Details LastModified Time 01/31/2021 01/31/2021 Follow up in 6 months monique Not available 01/31/2021 10:51:32 04/12/2021 04/12/2021 Follow up in 6 months monique Not available 04/08/2021 07:55:04 11/21/2021 11/21/2021 Follow up in 6 months [email or web address] Not available 11/21/2021 09:42:22 01/30/2022 01/30/2022 Follow up in 6 months monique Not available 01/02/2022 06:53:10 05/13/2024 05/13/2024 Follow up annually [email or web address] Not available 05/13/2024 10:10:14 Plan of Treatment Reminders Order Date Submit Date Provider Last Modified By Organization Details Last Modified Time Details Appointments NEW PATIENT 2024 01:00P Miguel HERNANDEZ MD Not available Not available Not available DERMATOLO GY VISIT 2024 09:30A Miguel BOCANEGRA MD Not available Not available Not available Lab surgical pathology study 2021 022 [facility], [address] [place] [address], [phone], 02/02/2022 00:29:33 surgical pathology study 2020 021 [facility], [address] [place] [address], [phone], 02/02/2021 17:59:18 Referral None recorded. Procedures None recorded. Surgeries None recorded. Imaging None recorded. Medication Orders triamcino lone acetonide 0.025 % topical cream 2023 024 [email or web address] [facility] #[id number], [address] [facility] [address] [place], [place], [phone], 05/13/2024 13:18:40 hydrocort isone 2.5 % topical cream 2021 022 [email or web address] [facility] #[id number], [address] [facility] [address] [place], [place], [phone], 11/21/2021 17:22:45 Kenalog 40 mg/mL suspensio n for injection 2021 022 [facility], [address], [place], [address], 05/13/2024 09:44:04 Patient TargetsNo targets recorded. Patient Instructions Encounter Date Encounter Id Patient Instructions Last Modified By Organization Details Last Modified Time 01/31/2021 [id number] Education: We discussed the potential diagnostic options, options for further evaluation and treatments, and the risks and benefits of each. monique Not available 01/31/2021 10:51:32 04/12/2021 [id number] Education: We discussed the potential diagnostic options, options for further evaluation and treatments, and the risks and benefits of each. monique Not available 04/08/2021 07:55:04 11/21/2021 [id number] Education: We discussed the potential diagnostic options, options for further evaluation and treatments, and the risks and benefits of each. [email or web address] Not available 11/21/2021 09:42:22 01/30/2022 [id number] Education: We discussed the potential diagnostic options, options for further evaluation and treatments, and the risks and benefits of each. monique Not available 01/02/2022 06:53:10 05/13/2024 [id number] Education: We discussed the potential diagnostic options, options for further evaluation and treatments, and the risks and benefits of each. Not available 05/13/2024 07:58:17 Reason for Referral None Reported. Results Created Date Observation Date Name Description Value Unit Range Abnormal Flag Note LastModifiedBy Organization Detail LastModifiedTime 02/01/20 21 01/31/2021 surgi wiliam patho logy study surgical SEE BELOW Depar tment of Patho logy Surgi wiliam Patho logy Repor t NAME: MARTIN HENDRICKS PATH. :SC-2 [id number] Copy to: Diagn osis: Left bicep s dista lly: Liche noid kerat osis. SOURC E OF SPECI MEN: SKIN BIOPS Y, LEFT BICEP S DISTA LLY CLINI WILIAM INFOR MATIO N: D 48.5 Gross Descr iptio n: Recei lois in forma satinder label ed with the patie nt's name and desig nated as left bicep s dista lly is a shave biops y of skin (0.5 x 0.5 x 0.1 cm). The epide rmal surfa ce is landry and rough ened. The miguel angel n is inked blue. The speci men is bisec dorota and entir sid submi tted in one casse tte. MT 01/31 04:15 PM Micro scopi c Descr iptio n: Secti ons demon strat e a band- like chron ic infla mmato ry infil trate obscu ring the dermo epide rmal junct ion with assoc iated vacuo lar inter face gonzalez es of the overl ezio acant hotic epide rmis. A few scatt ered pigme nted melan ophag es are scatt ered throu ghout the upper dermi s. No atypi wiliam melan ocyti c lesio n is obser lois on Melan -A immun ostai jesica secti ons. BRANT THOMAS M.D. uNsrat june Out Date: 02/02 17:58 Page 1 of 1 Not Available [facility] [address] [place] [address], [place], [address], 02/02/2021 17:59:18 01/31/20 22 01/30/2022 SURGI WILIAM surgical SEE BELOW Depar tment of Patho logy Surgi wiliam Patho logy Repor t NAME: MARTIN HENDRICKS PATH. :SC-2 Copy to: Diagn osis: Right ankle of jaw: Ulcer ation with crust forma tion and under lying atypi wiliam pseud oepit kenny matou s squam ous hyper plasi a. See micro scopi c descr iptio n. SOURC E OF SPECI MEN: SKIN BIOPS Y, RIGHT ANGLE OF JAW CLINI WILIAM INFOR MATIO N: D48.5 Gross Descr iptio n: Recei lois in forma satinder label ed with the patie nt's name and desig nated as righ t angle of jaw is a shave biops y of skin (1.1 x 0.7 x 0.1 cm). The epide rmal surfa ce is white brown and scaly . The miguel angel n is inked blue. The speci men is trise cted and entir sid submi tted in one casse tte. MT 01/30 04:38 PM Micro scopi c Descr iptio n: Multi ple addit ional step level secti ons have been exami jesica. There is exten sive ulcer ation of the shave biops y with marke d impet igini zed crust forma tion. Off to the sides of the ulcer , the intac t epide rmis does not show evide nce of viral cytop athic effec t. In the proce ss of re-ep tony nancygaston ation , there is pseud oepit kenny matou s is squam ous hyper plasi a with cytol ogic atypi a, which is proba gabrielle react beau in natur e. I do not see clear cut evide nce of an invas beau squam ous cell carci noma. Close clini wiliam follo w-up is recom diana d with repea t biops y in the event of lesio nal persi stenc e or recur rence at this site. BRANT THOMAS M.D. Nusrat d Out Date: 02/02 00:28 Page 1 of 1 Not Available [facility] [address] [facility], [place], [address], 02/02/2022 00:29:33 04/15/20 24 04/08/2024 MAMMO , scree jayjay, tomos ynthe sis, bilat eral, w/ CAD [address] [facility] [address] Eduin lee Name: AYSHA lee : 1944 Age: 78 years Eduin lee Orderi ng Provid er: MARIA LUISA RO JR EXAM DATE: 2023 EXAM: MG SCREEN ING CECILIA MAMMOG CARA INDICA TION: Routin e screen ing. PROCED URE: Multis lice imagin g of both breast s was perfor med in standa rd projec tions using Hologi c Seleni a Dimens ions tomosy nthesi s equipm ent (3D mammog radha) . 2D images were create d from the 3D datase t using C-View softwa re. The study was read with the assist ance of Comput er Aided Detect ion (CAD) softwa re. COMPAR KRISTEN: This was compar ed with previo us mammog peter dated 2022, 2021, 2020 FINDIN GS: The breast s are hetero geneou sly dense. This may lower the sensit ivity of mammog radha. There is no suspic ious mass or cluste r of calcif icatio ns. No isaak ectura l distor tion. IMPRES GALINDO: BI-RAD S catego ry 1, Negati ve. There is no eviden ce of malign jennifer. Screen ing mammog peter are recomm ended in one year. Result s were mailed or given to the eudin lee. Interp reted By: Wayne Frederick MD Electr onical ly Signed By: Wayne Frederick MD on 04/15/20 24 1:30 PM [email or web address] [facility] [address] , [place], [address], 04/15/2024 13:43:14 Result Notes None recorded. Problems No Known Problems Procedures Surgical History Date Name Laterality Status Provider Name and Address Organization Details Recorded Time 01/31/20 22 Destruction Premalignant Lesion(s) completed [facility] 01/30/2022 09:09:33 01/31/20 22 Destruction BN Lesions [facility] 01/30/2022 09:09:47 01/31/20 22 Shave Lesion; face, ear, eyelid, nose, lip, muc memb completed GABRIELLE BOCANEGRA MD [address] [place], [address], [facility] 02/03/2022 07:57:17 02/01/20 21 Shave Lesion; trunk, arm, leg completed GABRIELLE BOCANEGRA MD [address] [place] [address], [phone], [facility] 02/03/2021 21:40:45 02/01/20 21 Destruction Premalignant Lesion(s) completed Silvina Hanna [facility] 01/31/2021 10:52:55 10/12/19 21 Destruction Premalignant Lesion(s) completed GABRIELLE BOCANEGRA MD [address] [place] [address], [phone], [facility] 10/12/2020 12:54:51 04/16/20 20 Suture/Staple removal completed Silvina Hanna [facility] 04/16/2020 10:26:33 04/05/20 20 Excision MN Lesion; trunk, arm, leg completed Silvina Hanna [facility] 04/05/2020 17:05:37 03/23/20 20 Destruction MN Lesion; trunk, arm, leg completed GABRIELLE BOCANEGRA MD [address] [place] [address], [address], [facility] 04/01/2020 22:53:39 03/23/20 20 Destruction Premalignant Lesion(s) completed Silvina Hanna [facility] 03/23/2020 11:35:49 01/22/20 18 Destruction Premalignant Lesion(s) completed Silvina Hanna [facility] 01/21/2018 10:55:47 Imaging Results Imaging Date Name Status LastModified by Organiz ation Details LastModified Time 04/08/2024 MAMMO, screening, tomosynthe sis, bilateral, w/ CAD completed [facility] [address] [place] [address] Dr, [place], [address], 04/15/2024 13:43:14 Procedure Notes None recorded. Medical Equipment None Reported. Allergies Allergen ID Allergen Name Allergen Category Reaction Reaction Severity Criticality Documentation Date Start Date Code Code System Note Provider Name and Address Organization Details Recorded Time 850824 morphine sulfate medicatio n Not available Not available Not available 09/01/20162008 67280 RxNorm Comme nt: Creat ed By: Branden mcmillan;Cr eated Date: 2008 12:22 :34 PM; Not Available [facility] 6 03:16:33 878992 aspirin / caffeine / propoxyph katehrine medicatio n Not available Not available Not available 09/01/20162008 99707 8 RxNorm Comme nt: Creat ed By: Branden mcmillan;Cr eated Date: 2008 12:22 :47 PM; Not Available Count includes the [facility] 6 05:50:01 659117 thimerosa l medicatio n Not available Not available Not available 05/13/2024 83682 RxNorm Unabl e to get flu shot [facility] 4 09:48:49 Medications Name Sig Start Date Stop Date Status Note LastModified by Organization Details LastModified Time Celexa 10 mg tablet Daily active Frequenc y: daily;Me dication Descript ion: citalopr am; Dosage:1 ; Route:or al; refills: 5; Quantity :30 tablet Not Available Not Available Not Available Evista 60 mg tablet 03/23 completed Duration : 10 days;Med ication Descript ion: raloxife ne; Route:or al; refills: 0; Quantity :30 tablet Not Available Not Available Not Available fluoroura cil 5 % topical cream APPLY A SUFFICIE NT AMOUNT TO COVER THE LESIONS IN THE AFFECTED AREA(S) BY TOPICAL ROUTE 2 TIMES PER DAY 05/13 completed Not Available Not Available Not Available Aspir-Low 81 mg tablet,de layed release Daily active Duration : 10 days;Alex quency: daily;Me dication Descript ion: aspirin; Dosage:1 ; Route:or al; refills: 0; Quantity :30 tablet Not Available Not Available Not Available triamcino lone acetonide 0.1 % topical cream Applt to rash two times a day 2020 active Not Available Not Available Not Avai lable Kenalog 40 mg/mL suspensio n for injection 40 mg IM 05/13 completed Not Available Not Available Not Available Celebrex 200 mg capsule Three times a week active PT NO LONGER TAKING Not Available Not Available Not Available bupropion HCl 100 mg tablet Take 1 tablet twice a day by oral route. active Not Available Not Available No t Available triamcino lone acetonide 0.025 % topical cream APPLY A THIN LAYER TO THE AFFECTED AREA(S) BY TOPICAL ROUTE 2 TIMES PER DAY 2023 active Not Available Not Available Not Avai lable hydrocort isone 2.5 % topical cream apply to face BID x 2 week prn itching 2021 active Not Available Not Available Not Avai lable lisinopri l 40 mg tablet Bedtime 03/23 completed Duration : 30 days;Alex quency: hs;Medic ation Descript ion: lisinopr il; Dosage:1 ; Route:or al; refills: 5; Quantity :30 tablet Not Available Not Available Not Available losartan 100 mg tablet Take 1 tablet every day by oral route. active Not Available Not Available No t Available Avodart 0.5 mg capsule Daily 03/23 completed Frequenc y: daily;Me dication Descript ion: dutaster adrienne; Dosage:1 ; Route:or al; refills: 1; Quantity :90 capsule Not Available Not Available Not Available atorvasta tin active Not Available Not Available Not Available estradiol active PT NO LONGER TAKING Not Available Not Available Not Available omeprazol e active Not Available Not Available Not Available metoprolo l succinate active Not Available Not Available No t Available gabapenti n active Not Available Not Available Not Available Oyster Shell Calcium-V itamin D3 500 mg-10 mcg (400 unit) tablet Daily active Frequenc y: daily;Me dication Descript ion: calcium- vitamin D; Dosage:1 ; Route:or al; refills: 0 Not Available Not Available Not Available Centrum Silver 0.4 mg-300 mcg-250 mcg tablet Daily active Duration : 10 days;Alex quency: daily;Me dication Descript ion: multivit cody with minerals ; Dosage:1 ; Route:or al; refills: 0; Quantity :30 tablet Not Available Not Available Not Available Vitals None Recorded Social History None recorded. Functional Status None recorded. Mental Status None recorded. Family History Relationship Description Onset Age of this Age Resolved Age Notes LastModified by Organization Details LastModified Time Sister Malignant melanoma monique Not available 2016 07:08:23 Medical History Condition Response Squamous Cell Carcinoma N Basal Cell Carcinoma Y Gynecological HistoryNo gynecological history recorded. 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, Avodart was helpful but ins wont cover this so she has elected to wear a wig Hemangioma 292454140 D18 .00 reassuranc e [id number] MD [facility] [address] [place] [address] 11/26/2017 11:32:45 11/26/2017 13:56:55 History of malignant basal cell neoplasm of skin 259232770 Z85.828 Status post BCC on left dorsal forearm - doing well [place] 363320238 L81.4 reassuranc e Postmenopa usal frontal fibrosing alopecia 537591466 L66.1 Avodart was helpful but ins wont cover this so she has elected to wear a wig Actinic keratosis 007 L57.0 Contact dermatitis 59630 004 L25.9 prob clothing related, using Tide clear Hold on patch tests for now. [id number] MD [facility] [address] [place] [address] 01/21/2018 10:21:16 01/21/2018 13:19:04 History of malignant basal cell neoplasm of skin 633282932 Z85.828 Status post BCC on left dorsal forearm - doing well [place] 635337260 L81.4 reassuranc e Actinic keratosis [address] x 1 [id number] MD [facility] [address] [place] [address] 01/27/2019 10:35:58 01/27/2019 12:32:12 History of malignant basal cell neoplasm of skin 763676485 Z85.828 Status post BCC on left dorsal forearm - doing well [place] 735476920 L81.4 Reassuranc e and education regarding the disorder and options. Erythema of skin 1437258 08 L53.9 Reassuranc e and education regarding the disorder and options. Neoplasm o f uncertain behavior of skin 65753072 D48.5 Left upper buttock has a 1 cm red scaly slightly thickened papule--[facility] Hemangioma 584625399 D18 .00 Reassuranc e and education regarding the disorder and options. Postmenopa usal frontal fibrosing alopecia 761791332 L66.1 Avodart was helpful but ins wont cover this so she has elected to wear a wig [id number] MD [facility] [address] [place] [address] 03/23/2020 11:11:19 03/23/2020 13:11:30 History of malignant basal cell neoplasm of skin 839981663 Z85.828 Status post BCC on left dorsal forearm - doing well [place] 311213398 L81.4 Reassuranc e Erythema of skin 6786709 08 L53.9 Reassuranc e Neoplasm o f uncertain behavior of skin 54895168 D48.5 Hemangioma 025745542 D18 .00 Reassuranc e Postmenopa usal frontal fibrosing alopecia 006888376 L66.1 Avodart was helpful but ins wont cover this so she has elected to wear a wig Actinic keratosis [address] x 1 Malignant melanoma of upper limb 691712494 C43.62 Left biceps - 6 mm r/o AN shave removal and base destroyed with ED [id number] MD [facility] [address] [place] [address] 04/05/2020 16:11:23 04/06/2020 11:13:41 History of malignant basal cell neoplasm of skin 737057498 Z85.828 Status post BCC on left dorsal forearm - doing well Malignant melanoma of upper limb 879553391 C43.62 Left biceps 0.5 mm, fairly non-aggess beau features excised - tag: proximal ck margins f/u 12 days for sutures f/u 4 months for FSE [id number] MD [facility] [address] [place] [address] 04/16/2020 10:23:35 04/16/2020 12:20:47 History of malignant basal cell neoplasm of skin 209822955 Z85.828 Status post BCC on left dorsal forearm - doing well Malignant melanoma of upper limb 281758558 C43.62 Left biceps 0.5 mm, fairly non-aggres sive features f/u 4 months for FSE Removal of suture 277498 01 Z48.02 [id number] MD [facility] [address] [place] [address] 10/12/2020 11:17:22 10/12/2020 11:59:32 History of malignant basal cell neoplasm of skin 374732265 Z85.828 Status post BCC on left dorsal forearm - doing well History of Malignant melanoma 184018108 Z85.89 S/P MM on left biceps 0.5 mm 04/2020 - doing well Lentiginosis 026771170 L 81.4 Reassuranc e and education regarding the disorder and options. Raised quinn orrheic keratosis 9347414238 30396 L82.1 Reassuranc e and education regarding the disorder and options. Frontal fi brosing alopecia 540119657 L66.8 Reassuranc e and education regarding the disorder and options. Actinic keratosis [address] x 1 Multiple b enign melanocytic nevi 019955146 D22.9 Reassuranc e and education regarding the disorder and options. [id number] GABRIELLE BOCANEGRA MD [facility] [address] [place] [address] 01/31/2021 10:40:02 01/31/2021 12:24:10 History of malignant basal cell neoplasm of skin 525427810 Z85.828 Status post BCC on left dorsal forearm - doing well History of Malignant melanoma 767603278 Z85.89 S/P MM on left biceps 0.5 mm 04/2020 - doing well Lentiginosis 958271738 L 81.4 Reassuranc e Recommende d Equate Ultra Sunscreen 30+ and sun protecting hats/cloth ing Raised quinn orrheic keratosis 1980706122 32336 L82.1 Reassuranc e Frontal fi brosing alopecia 975127288 L66.8 Reassuranc e Actinic keratosis [address] x 1 Neoplasm o f uncertain behavior of skin 92182764 D48.5 ? ISK vs BCC r/o MM left biceps distally shave removal and base destroyed with ED [id number] MD [facility] [address] [place] [address] 04/12/2021 11:35:27 04/12/2021 12:07:54 History of malignant basal cell neoplasm of skin 997902478 Z85.828 Status post BCC on left dorsal forearm - doing well History of Malignant melanoma 895081813 Z85.89 S/P MM on left biceps 0.5 mm 04/2020 - doing well Lentiginosis 831197912 L 81.4 Reassuranc e Recommende d Equate Ultra Sunscreen 30+ and sun protecting hats/cloth ing Raised quinn orrheic keratosis 2569266357 12021 L82.1 Reassuranc e Frontal fi brosing alopecia 501020556 L66.8 Reassuranc e Neoplasm o f uncertain behavior of skin 44667917 D48.5 left lower back - ? growth vs rash, doubt cancer watch, return early if worse [id number] MD [facility] [place] [address] [place] [address] 11/21/2021 15:27:33 11/21/2021 15:54:09 History of malignant basal cell neoplasm of skin 460286924 Z85.828 Status post BCC on left dorsal forearm - doing well History of Malignant melanoma 893276985 Z85.89 S/P MM on left biceps 0.5 mm 04/2020 - doing well Lentiginosis 776451016 L 81.4 Reassuranc e Recommende d Equate Ultra Sunscreen 30+ and sun protecting hats/cloth ing Frontal fi brosing alopecia 591853628 L66.8 Reassuranc e Neoplasm o f uncertain behavior of skin 79152066 D48.5 left lower back - ? growth vs rash, doubt cancer watch, return early if worseno change Contact dermatitis 94938 004 L25.9 skin on face and chest flared upHold on patch tests for now.will start HCC 2.5 % cream BID x 2 weeks40 Kenalog IM given todayre-ck in 1 mth if not better in week or so contact office [id number] MD [facility] [place] [address] [place] [address] 01/30/2022 08:41:03 01/30/2022 10:07:52 History of malignant basal cell neoplasm of skin 120816891 Z85.828 Status post BCC on left dorsal forearm - doing well History of Malignant melanoma 977033651 Z85.89 S/P MM on left biceps 0.5 mm 04/2020 - doing well Lentiginosis 618368796 L 81.4 Reassuranc e Recommende d Equate Ultra Sunscreen 30+ and sun protecting hats/cloth ing Contact dermatitis 42306 004 L25.9 face and chest are clear todaytreat ed with Kenalog 40 mg and Hydrocorti sone cream - much betterHx genital/pe rianal rash better with clobetasol , [employer] did bx, told it was eczema -- edu re clob use Discussed patch testing if flares again Inflamed s eborrheic keratosis 113204181 L82.0 Education, then cryodestru ction with liquid nitrogen (LN) x 1 Neoplasm o f uncertain behavior of skin 22175633 D48.5 Right angle of jaw - Education, thenshave removaland base destroyed with electrodes sication. Actinic keratosis L57.0 Education, then cryodestru ction with liquid nitrogen (LN) x 3 [id number] GABRIELLE BOCANEGRA MD [facility] [address] [place] [address] 05/13/2024 09:29:48 05/13/2024 10:34:23 History of malignant basal cell neoplasm of skin 352227966 Z85.828 Status post BCC on left dorsal forearm - doing well History of Malignant melanoma 015665579 Z85.89 S/P MM on left biceps 0.5 mm 04/2020 - doing well Lentiginosis 495320114 L 81.4 Reassuranc e Recommende d Equate Ultra Sunscreen 30+ and sun protecting hats/cloth ing Raised quinn orrheic keratosis 0035175942 44284 L82.1 Reassuranc e Neoplasm o f uncertain behavior of skin 32263020 D48.5 Lt lower back has an irregular dull red 2cm patchNo change per pt? sBCC [facility]erm[facility]roma 201173798 D23.9 Reassuranc e Contact dermatitis 78907 004 L25.9 Anterior axillary folds and slightly towards center? cause--katia thing, otherDiscu ssed dx and tx options including topical steroids, biopsy, allergy testStart TAC 0.025% BID, taper as tolerated Health Concerns Section Related Observation LastModified by Organization Detai ls LastModified Time None Recorded Concern Status LastModified by Organization Details LastModified Time None Recorded Advance Directives Directive None Recorded Payers Encounter Date Sequence Insurance Name Policy Number Policy Vaughn Covered Member ID Vaughn Member ID Guarantor Name 01/31/2021 1 [place] Sarah Francisco Scovell [id number] Sarah Francisco Scovell 01/31/2021 2 [employer] (MEDICARE SUPPLEMENT) Sarah Francisco Scovell [id number] Sarah G Scovell 04/12/2021 1 [place] Sarah G Scovell [id number] Sarah G Scovell 04/12/2021 2 [employer] [place] (MEDICARE SUPPLEMENT) Sarah G Scovell [id number] Sarah G Scovell 11/21/2021 1 [place] Sarah G Scovell [id number] Sarah G Scovell 11/21/2021 2 [employer] (MEDICARE SUPPLEMENT) Sarah G Scovell [id number] Sarah G Scovell 01/30/2022 1 [place] Sarah G Scovell [id number] Sarah G Scovell 01/30/2022 2 [employer] [place] (MEDICARE SUPPLEMENT) Sarah G Scovell [id number] Sarah G Scovell 05/13/2024 1 [place] Sarah G Scovell [id number] Sarah G Scovell 05/13/2024 2 [employer] (MEDICARE SUPPLEMENT) Sarah G Scovell [id number] Sarah G Scovell Notes Date Note Type Note Provider Name and Address Organization Details Recorded Time 01/31/2021 text/html Established Patient Monitor: BCC MM AKS LOCATION: left upper arm scar DURATION: x days SYMPTOMS: red bigger TREATMENTS: none no issues with scarring, or healing Patient is on ASA Denies any other new, changing, or bleeding lesions, or other rashes, feels {{well * not well}},in a good mood has {{no * a positive}} family history of melanoma. GABRIELLE BOCANEGRA MD [address] [place] [address], [phone], [facility] 02/03/2021 21:41:30 04/12/2021 text/html Established Patient Monitor: BCC MM AKS no issues with scarring, or healing Patient is on ASA Denies any other new, changing, or bleeding lesions, or other rashes, feels {{well * not well}},in a good mood has {{no * a positive}} family history of melanoma. GABRIELLE BOCANEGRA MD [address] [place], [address], [facility] 04/12/2021 12:25:09 11/21/2021 text/html Established Patient - Watching lesion left lower back patient feels no change rare occasion it will itch.1. Spots around eyes swelling x couple weeks hewitt flares up in cold. tx facial cream, vit. e when really irritated2. Lower legs spots flaking x all winter tx lotion not helping Monitor: BCC MM AKS no issues with scarring, or healing Patient is on ASA Denies any other new, changing, or bleeding lesions, or other rashes, feels {{well * not well}},in a good mood has {{no * a positive}} family history of melanoma. 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 GABRIELLE BOCANEGRA MD [address] [place], [address], [facility] 02/03/2022 07:57:54 05/13/2024 text/html Established PatientHx of MM on left biceps 0.5 mm 04/2020 - doing wellMonitor: BCC LOCATION: Lt upper calfDURATION: 1-2 monthsSYMPTOMS: Slow to healTREATMENTS: None - had chigger bite LOCATION: B/L axillae DURATION: 1-2 weeks SYMPTOMS: Rash, itch TREATMENTS: Lotion w/ vit E and aloe - some benefit- Uses Dove sensitive skin soap, deoderant; Free and Clear detergent Pt would like FSE today. Check face. Patient is on ASANo issues with bleeding, scarring, or healing Denies any other new, changing, or bleeding lesions, or other rashes, feels {{well * not well}},in a good mood has {{no * a positive}} family history of melanoma. GABRIELLE BOCANEGRA MD [facility] [place], [address], [facility] 05/13/2024 16:16:30 OBGyn Episode No OBEpisode recorded.
--- OUTSIDE RECORDS SUMMARY | 2025-01-28 10:08 | XMS_ITS | Continuity of Care Document ---
Author Name [facility] Organization [facility] Care Team Providers Care Cd Technician Name Role Phone [facility] Unavailable Unavailable Problems Combined list of problems from Department of [facility] and [facility] facilities. It does not include entries that were removed or entered in error. Problem Status Onset Date Problem Type Date of Resolution Comments Source Asymmetric sensorineural hearing loss Active Condition [facility] Diagnosis: ICD-10-CM Z46.1 Encounter for fitting and adjustment of hearing aid Active Diagnosis [facility] Diagnosis: ICD-10-CM H90.5 Unspecified sensorineural hearing loss Active Diagnosis [facility] Encounters Combined list of: 1) Encounters from [facility] facilities going backup to the last 18 months, not all [place] inpatient encounters are included; 2) Encounters from the [facility] of [facility] facilities going backup to 280 months. Location Location Details Encounter Type Encounter Number Reason For Visit Attending Provider ADM Date DC Date Status Disposition Source [facility] Outpatient Encounter [id number] 05 ISELACALEB FELY Allen 10/11 [place]/MOD IFYING [id number] Diagnos is: ICD-10- CM H90.5 Unspeci fied sensori neural hearing loss SUNDAR BATES STIBrijesh 10/11 [place] [facility] [place] [id number] Diagnos is: ICD-10- CM Z46.1 Encount er for fitting and adjustm ent of hearing aid SUNDAR BATES STIBrijesh 11/[address] [place] [facility] HEARING AID REPAIR/MOD IFYING [id number] Diagnos is: ICD-10- CM Z46.1 Encount er for fitting and adjustm ent of hearing aid [facility]ANCI [facility] HEARING AID REPAIR/MOD IFYING [id number] Diagnos is: ICD-10- CM Z46.1 Encount er for fitting and adjustm ent of hearing aid Shaylee BRIDGES 01[facility]
--- NOTE | 2025-01-28 10:41 | EXP.PAIN.SOA ---
[facility] Disclaimer: The information contained in this section may have been updated after the patient was seen, as this information can be updated by other users. 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 Acute respiratory distress syndrome (ARDS) Elevated troponin Vulvar lesion Vasomotor symptoms due to menopause Unstable angina Parotitis Encounter for pre-operative cardiovascular clearance Chest pressure ARDS (adult respiratory distress syndrome) Pneumonia Thyroid nodule Memory loss Ataxia, unspecified Lumbago with sciatica, left side Primary generalized (osteo)arthritis Vitamin D deficiency, unspecified Abnormal electrocardiogram [ECG] [EKG] Fibromyalgia Abnormal EKG Diastolic dysfunction HTN (hypertension) HLD (hyperlipidemia) Gastroesophageal reflux disease Surgical History History of tonsillectomy Presence of artificial knee joint, bilateral History of cholecystectomy H/O total hysterectomy Family History Other Family history of Alzheimer disease Family history of cancer Social History Smoking Status: Former smoker second hand exposure: No alcohol intake: never substance use type: denies use current occupational status: other Travel in the last 8 weeks: None household members: spouse housing: house current occupational exposures/hazards: No caffeine: Yes PM Subjective & Objective Subjective Subjective:: Patient is a pleasant 79-year-old female who presents today for follow-up. Today she rates her pain a 5 out of 10. She denies any new falls or injuries. She is still trying to recover from having bilateral PEs and getting over pneumonia. Patient does state that she still is improving however she was really hoping that she be able to get around a lot easier by now. Patient states that she has followed up with the prototype machine operator and at this time they have their next scheduled follow-up in May. Patient states she does also still have 2 more weeks of physical therapy and feels like this does help. She states she still has a lot of low energy and that we will get increased pain in her back that does go into her upper legs when she is up for long time. Patient states she would really like to get back to golfing now that the weather is starting to get nicer. Patient does state that some days the pain is very severe and that the Tylenol just does not seem to help. Patient has been doing more ice after her exercises and feels like this is done better than the previous heat. She denies any other changes. Her August has been reviewed and is appropriate. Review of Systems: General: No recent weight changes, no fever, no sleep disturbances Respiratory: No cough, no shortness of air, no recurring pulmonary infections Cardiovascular/peripheral vascular: No chest pain, no palpitations, no edema, no shortness of breath Gastrointestinal: No new onset incontinence, normal bowel movements reported Genitourinary: No new onset incontinence Musculoskeletal: Low back pain Psychiatric: [Normal mood/affect] Neurological: [Denies weakness in extremities], [denies balance issues] Pain at rest (0-10 scale): 5 Objective Objective:: Physical Exam: General: Alert and oriented x3, no acute distress, pleasant and cooperative Lungs: Respirations even and unlabored, symmetrical chest expansion Eyes: PERRL Musculoskeletal: Flexion and extension of lumbar [spine] somewhat guarded secondary to pain, [antalgic gait noted] Neurological: Speech clear, no gross sensory deficit Has patient had previous pain injection?: No Conservative treatment options previously tried: Home exercise plan Length of treatment: Longer than 12 weeks and Physical Therapy Length of treatment: Ongoing Meds Home Medications and Allergies Home Medications ?Medication ?Instructions ?Recorded ?Confirmed ?Type aspirin 81 mg tablet,delayed 81 mg PO DAILY 04/22/18 12/29/24 History release hydrocortisone 2.5 % topical cream 1 applic topical DIRECTED Skin 10/31/21 12/29/24 History Condition gabapentin 100 mg capsule 100 mg PO BIDP PRN nerve pain 05/15/23 12/29/24 History metoprolol succinate 25 mg 25 mg PO DAILY #90 tabs 12/10/23 12/29/24 Rx tablet,extended release 24 hr bupropion HCl 150 mg tablet,12 hr 150 mg PO DAILY #90 ea 08/12/24 12/29/24 Rx sustained-release citalopram 20 mg tablet 20 mg PO DAILY 10/17/24 12/29/24 History losartan 100 mg tablet 100 mg PO DAILY 10/17/24 12/29/24 History cholecalciferol (vitamin D3) 75 4,000 unit PO DAILY 11/25/24 12/29/24 History mcg (3,000 unit) tablet apixaban 5 mg tablet 5 mg PO BID #180 tabs 12/24/24 12/29/24 Rx atorvastatin 80 mg tablet 80 mg PO HS #90 tabs 12/30/24 Rx omeprazole 20 mg capsule,delayed 20 mg PO DAILY #30 caps 01/21/25 Rx release acetaminophen 300 mg-codeine 30 mg 1 tab PO DAILY #30 tabs 01/28/25 Rx tablet New Prescriptions to Start Prescriptions: acetaminophen-codeine Sharri Herrera Allergies Allergy/AdvReac Type Severity Reaction Status Date / Time morphine Allergy Unknown Verified 12/24/24 13:03 allergy reaction propoxyphene (From Darvon) Allergy Unknown Verified 12/24/24 13:03 allergy reaction thimerosal (From Merthiolate Allergy Unknown Verified 12/24/24 13:03 (thimerosal)) allergy reaction Assessment and Plan *Assessment and plan (1) Lumbar radiculopathy: Status: Acute Category: Medical Code(s): M54.16 - Radiculopathy, lumbar region (2) Compression fracture of L1 lumbar vertebra: Status: Acute Category: Medical Code(s): S32.010A - Wedge compression fracture of first lumbar vertebra, initial encounter for closed fracture Plan I did discuss with the patient regarding her increased pain that she may benefit from using a Tylenol 3 from time to time. Patient will be given a 1 month supply of this medication. Patient agrees with this plan of care. We will continue to follow-up on her progress over the next month on how she is with her continued physical therapy and increased exercise. Patient is trying to slowly increase her stamina and has even been walking from her house down her driveway and back on a daily basis. Patient will return to clinic in 1 month for reevaluation of symptoms and plan of care. Risks and benefits of the medication have been explained in detail to the patient. The patient does understand the risk of dependence on the medication when given over a prolonged period. Patient has been advised of risks of oversedation with the prescribed medication. Narcan has been offered to the paitent in the event of oversedation. Patient has been advised that a family member should also be educated regarding administration of Narcan. The patient has been advised to consult with his/her primary care provider and pharmacist regarding drug-drug interaction of medications currently prescribed. Patient has been prescribed a controlled substance after being counseled on the medication, medication safety, and possible side effects. Opioid contract was reviewed and signed by the patient, and that they have agreed to all of the terms set forth by our compliance program. A UDS is needed to verify patient's compliance with our office pain contract. This is ordered based off specific treatments related to chronic pain with the potential to abuse certain medications. Patient has been instructed to contact the clinic with any concerns before the next appointment. Dr. Alonzo has reviewed this note and agrees with this plan of care. This note was dictated using voice recognition software and make contain errors or omissions.
[2025-01-28 11:16] VITALS: BP 158/72; BP 182/69; PULSE 69; RESP 14; O2SAT 97; BMI 25.4
== END 2025-01-28 23:59 | disposition home or self-care (01) ==
PROVIDERS: PCP Internal Medicine; Visit Provider Nurse Practitioner Family
DX: M54.16 Radiculopathy, lumbar region (principal); S32.010A Wedge compression fracture of first lumbar vertebra, initial encounter for closed fracture; Z87.891 Personal history of nicotine dependence
CPT/HCPCS: 99212; G0463

== ENCOUNTER 2025-02-02 14:00 | Outpatient (RCR) | payer MEDICARE, OTHER, SELFPAY ==
--- NOTE | 2025-01-15 16:12 | [facility].PTOPEV ---
PT Outpatient Evaluation Rehab PT Outpatient Evaluation Start: 01/15/25 15:02 Freq: Status: Active Protocol: Document 01/15/25 15:02 PATTIE (Rec: 01/15/25 16:12 PATTIE [id number]) E-signed By Sharri Cortez, PT Outpatient Therapy Subjective History Subjective History Pt is a 79 y/o female who presents to PT s/p kyphoplasty of L1 performed on 10/17/24. Pt states last year on her birthday she lifted a suitcase on her bed and heard a pop resulting in a L1 compression fracture. Pt denies complications from the surgery , but does report she aspirated 2 weeks later and was put on a ventilator, developed pneumonia and bilateral DVTs. Pt states she is on Eliquis until May 07 and is following up with a ndt inspector with her next scheduled appointment in May. Pt denies being provided with exercises parameters or using supplemental oxygen. Pt states her oxygen saturation normally stays around 96-97%. Pt states she had HHPT 2x/week for 4 weeks after her recovery. Pt reports she continues to perform HHPT exercises including tandem walking, hip strengthening, sit to stands, lunged and step ups 1x/day. Pt reports she continues to have central low back stiffness, tightness and discomfort that refers into her hips and her abdomen. Pt denies distal LE symptoms, paresthesia or b/b dysfunction . Pt reports pain is aggravated by bending/lifting, prolonged standing, and getting up after periods of inactivity. Pt reports noticed balance deficits following the surgery and states she uses a SPC for community ambulation but performs household ambulation without an AD. Pt states she did fall 4 weeks ago due to tripping on a vacuum cord and landed on her left knee, denies serious injuries from the fall. Pt reports she takes prescribed Gabapentin and OTC Tylenol for pain which helps. Medical History: Fibromyalgia, Abnormal EKG, Diastolic dysfunction, HTN (hypertension ), HLD (hyperlipidemia), Gastroesophageal reflux disease, Acute hypoxemic respiratory failure, Acute Respiratory Distress Syndrome, Vitamin D deficiency, Osteoarthritis, Unstable angina, Vasomotor symptoms due to menopause, Osteopenia New diagnosis of cancer in past 12 No months? Chief Complaint Pain,Stiff Symptom Type Ache,Other Symptoms Relieved By Rest/Positioning,Prescription Meds Symptoms Aggravated By Standing,Bending/Stooping, Physical Activity,Walking, Lifting Current Functional Limitations Lifting,Housework,Standing, Squatting,Balance,Bending/ Stooping Symptom Description Intermittent Level of pain today (0-10) 4 Pain scale - at its best (0-10) 0 Pain scale - at its worst (0-10) 10 Lumbopelvic Eval Posture Thoracic Spine Posture Standing Position Increased Kyphosis Lumbar Spine Posture Standing Position Decreased Lordosis Assistive device Assistive Devices Straight Cane Palapation tenderness bilateral lumbar spinal tenderness Yes: L1-L5 paraspinal tenderness Yes: lumbar PS buttock tenderness Yes: piriformis, gluteal mm Lumbar/Sacral Palpation Findings Tenderness Accessory Movement L-spine Vertebrae Accessory Movements Central P/A [place] that Elicit Symptoms L2 bilateral L3 bilateral L4 bilateral L5 bilateral Range of Motion Lumbar Spine Active Flexion Range of 60 Motion (degrees) Lumbar Spine Active Extension Range of 10 Motion (degrees) Left Lumbar Spine Lateral Flexion Active 5 Range of Motion (degrees) Right Lumbar Spine Lateral Flexion 5 Active Range of Motion (degrees) Manual Muscle Test Bilateral Knee Extension Strength Grade 5 Normal Knee Flexion Strength Grade 5 Normal Hip Flexion Strength Grade 4- Good- Hip Abduction Strength Grade 4- Good- Hip Adduction Strength Grade 4- Good- Hip Extension Strength Grade 4- Good- Ankle Dorsiflexion Strength Grade 5 Normal Altered Sensation Comment equal and intact to light touch sensation bilaterally Special Tests Sciatic Nerve Tension Test Negative Left,Negative Right Unilateral Straight Leg Raise (Lasegue) Negative Left,Negative Right Test Balance Eval [place] Feet Together/Eyes open/Stable Surface pass Feet Together/Eyes Closed/Stable Surface fail Feet Together/Eyes open/Unstable Surface fail Feet Together/Eyes Closed/Unstable fail Surface Oswestry Index Section 1 Pain Intensity The pain is moderate and does not vary much Section 2 Personal Care (Washing,[place]) change my way of washing or dressing in order to avoid pain Section 3 Lifting I can lift heavy weights, but it gives me extra pain Section 4 Walking I cannot walk more than 1/2 mile without increasing pain Section 5 Sitting I can sit in my favorite chair for as long as I like Section 6 Standing I cannot stand more than 1/2 hour without increasing pain Section 7 Sleeping I get pain in bed, but it does not prevent me from sleeping well Section 8 Social Life Pain has no significant effect on my social life apart from limiting Section 9 Traveling I get extra pain while traveling, but it does not compel me to seek al Section 10 Changing Degreee of Pain My pain seems to be getting better, but improvement is slow Score and Risk Level Oswestry Sc 18 Oswestry Risk Level Moderate Disability Outpatient Therapy Assessment Impairments Problems/Impairmments Palpation Tenderness,Impaired Range of Motion,Impaired Strength,Impaired Standing, Impaired Lifting,Impaired Household Care,Impaired Squatting,Impaired Bending, Impaired Balance,Subjective C/ O Pain,Impaired Self Care/Self Management Prognosis Rehab Potential Good Clinical Impression Consistent with Diagnosis Yes Short Term Goals Number of Weeks 3 Decrease Subjective C/O Pain Yes: Improve pain at worst to 8/10 to improve overall QOL Improve Self Care/Self Management Yes Patient to be Ind w/ HEP Yes Detention Goals Number of Weeks 6 Increase Range of Motion Yes: Improve lumbar AROM flex to at least 70, LF to 10 Increase Strength Yes: Improve BLE MMT to 4-4+/5 grossly to assist with function Improve Gait Pattern without Assistive Yes: community ambulation Device without an AD safely Restore Ability to Lift Objects to Waist Yes: demonstrate proper Level lifting mechanics to prevent reinjury Improve Balance Yes: FT EC unstable surface 30 without LOB to decrease fall risk Improve Oswestry Score Yes: Improve score to 13 or less to improve overall QOL Decrease Subjective C/O Pain Yes: Improve pain at worst to 6/10 to improve overall QOL Outpatient Therapy Plan of Care Treatment Plan May Include Therapeutic Exercise Including Home Yes Exercise Program Manual Therapy Techniques Yes Neuromuscular Re-education Yes Therapeutic Activities to Return to Yes Previous Functional/Work Level ADL/Self Care Education Yes Mechanical Traction Yes Dry Needling Yes Thermal Modalities Yes Electrical Stimulation Yes Ultrasound/Phonophoresis Yes Iontophoresis Yes Massage Yes Group Therapy for Medicare Yes Eval/Re-Eval Yes Frequency Times per week 2 Duration Number of Weeks 4-6 Addendums This patient is a candidate for social No or vocational rehab? Patient/Guardian verbally acknowledges Yes understanding of treatment program and consents to further treatment? Patient/Guardian verbally acknowledges Yes understanding of diagnosis, prognosis and goals for treatment? Eval Complexity PT Charges 75551 - Moderate Complexity Shoulder/Elbow Eval Shoulder Objective Measurements Elbow Objective Measurements PHYSICIAN CERTIFICATION: I certify the specified therapy services for Sarah Hansen are required, authorized, and reviewed every 30 days.
== END 2025-02-02 23:59 | disposition home or self-care (01) ==
LOC: PT 14:00
PROVIDERS: PCP Internal Medicine; Visit Provider Nurse Practitioner Family
DX: G89.29 Other chronic pain (principal); M51.360 Other intervertebral disc degeneration, lumbar region with discogenic back pain only; M47.816 Spondylosis without myelopathy or radiculopathy, lumbar region; M46.1 Sacroiliitis, not elsewhere classified; M54.16 Radiculopathy, lumbar region
CPT/HCPCS: 97110; 97163

== ENCOUNTER 2025-02-26 09:22 | Outpatient (POV) | payer MEDICARE, OTHER, SELFPAY ==
--- OUTSIDE RECORDS SUMMARY | 2025-02-26 09:25 | XMS_ITS | Continuity of Care Document ---
Author Name [facility] Organization [facility] Care Team Providers Care Sr. Media Manager Name Role Phone [facility] Unavailable Unavailable Problems Combined list of problems from Department of [facility] and [facility] facilities. It does not include entries that were removed or entered in error. Problem Status Onset Date Problem Type Date of Resolution Comments Source Asymmetric sensorineural hearing loss Active Condition [facility] Diagnosis: ICD-10-CM Z46.1 Encounter for fitting and adjustment of hearing aid Active Diagnosis [facility] Diagnosis: ICD-10-CM H90.5 Unspecified sensorineural hearing loss Active Diagnosis [facility] Encounters Combined list of: 1) Encounters from [facility] facilities going backup to the last 18 months, not all [place] inpatient encounters are included; 2) Encounters from the [facility] of [facility] facilities going backup to 280 months. Location Location Details Encounter Type Encounter Number Reason For Visit Attending Provider ADM Date DC Date Status Disposition Source [facility] Outpatient Encounter [id number] ISELACALEB FELY Allen 10/11 [place] HEARING AID REPAIR/MOD IFYING [id number] Diagnos is: ICD-10- CM H90.5 Unspeci fied sensori neural hearing loss SUNDAR BATES STIBrijesh 10/11 [place] [facility] [place] [id number] Diagnos is: ICD-10- CM Z46.1 Encount er for fitting and adjustm ent of hearing aid SUNDAR BATES STIBrijesh 11/08 [place] [facility] HEARING AID REPAIR/MOD IFYING [id number] Diagnos is: ICD-10- CM Z46.1 Encount er for fitting and adjustm ent of hearing aid DUCYANCI ALEKS Rivera 12/18 [place] HEARING AID REPAIR/MOD IFYING [id number] Diagnos is: ICD-10- CM Z46.1 Encount er for fitting and adjustm ent of hearing aid Shaylee BRIDGES 01/07 [place] [facility] Outpatient Encounter [id number] 02/25 [place] [facility] Outpatient Encounter [id number] 02/25 [place] [facility]
--- OUTSIDE RECORDS SUMMARY | 2025-02-26 09:26 | XMS_ITS | Continuity of Care Document ---
Author Organization [facility], INTERNAL MEDICINE [place] Address [address] [place] [id number] Care Team Providers Care Leach Runner Name Role Phone TANNER HERNANDEZ Primary Care Provider Assessment Encounter Date Assessment Date Assessment LastModified by Organization Details LastModified Time 02/05/2025 02/05/2025 79 year old female with fibromyalgia, HTN, HLD, GERD, history of PE, osteopenia, anxiety here to establish care with PCP. denny Not available 02/05/2025 15:34:25 Plan of Treatment Reminders Order Date Submit Date Provider Last Modified By Organization Details Last Modified Time Details Appointments MEDICARE WELLNESS VISIT 2024 02:30P Miguel HERNANDEZ MD Not available Not available Not available DERMATOLO GY VISIT 2024 09:30A M GABRIELLE BOCANEGRA MD Not available Not available Not available Lab vitamin B12 + folate, serum or blood 2024 025 [facility], [address] [place] [address], [phone], 02/05/2025 16:14:15 lipid panel, serum 2024 025 [facility], [address] [place] [address], [phone], 02/05/2025 16:09:39 CBC w/ auto diff 2024 025 [facility], [address] [place] [address], [id number], 02/05/2025 15:53:04 CMP, serum or plasma 2024 025 [facility], [address] [place] [address], [id number], 02/05/2025 16:09:41 glycohemo globin, total, blood 2024 025 [facility], [address] [place] [address], [phone], 02/05/2025 16:04:00 urinalysi s, complete 2024 025 [facility], [address] [place] [address], [id number], 02/05/2025 17:29:22 TSH, serum, reflex free T4 2024 025 [facility], [address] [place] [address], [phone], 02/05/2025 16:05:22 Referral otolaryng ologist referral 2024 025 [email or web address] Jose F Foster MD, [address] [place] [address], [phone], 02/05/2025 14:08:53 Procedures None recorded. Surgeries None recorded. Imaging None recorded. Medication Orders None recorded. Patient TargetsNo targets recorded. Patient Instructions Encounter Date Encounter Id Patient Instructions Last Modified By Organization Details Last Modified Time 02/05/2025 [id number] Follow up in 1 month for recheck (possible medicare wellness exam). Will take over rx at this time [email or web address] Not available 02/05/2025 13:55:54 Reason for Referral Doctor Of Radiology Referral fo r Vertigo Referring Physician: Tanner Hernandez, Internal Medicine, Encounter Date: 02/05/2025 Results Created Date Observation Date Name Description Value Unit Range Abnormal Flag Note LastModifiedBy Organization Detail LastModifiedTime 02/26/2002/24/2025 audio gram No observ ation record ed. BARCODE Not Available 2024 16:09:31 Result Notes None recorded. Problems Name Problem SNOMED Code Status Onset Date Resolution Date Notes Provider Name and Address Organization Details Recorded Time Essential hypertension 27256007 Active 2024 TANNER HERNANDEZ MD [address] [place] [address], [address], [facility] 13:31:55 Anxiety 63077277 Active 2024 TANNER HERNANDEZ MD [address] [place] [address], [address], [facility] 13:31:55 Mixed hyperlipidemia 732584565 Active 2024 TANNER HERNANDEZ MD [address] [place] [address], [address], [facility] 13:31:57 Primary fibromyalgia syndrome 01757994 Active 2024 TANNER HERNANDEZ MD [address] [place] [address], [address], [facility] 13:31:59 Osteopenia 934688455 Active 2024 TANNER HERNANDEZ MD [address] [place] [address], [address], [facility] 13:32:00 History of pulmonary embolus 793232836 Active 2024 TANNER HERNANDEZ MD [address] [place] [address], [address], [facility] 13:32:02 Gastroesophage al reflux disease without esophagitis 895671470 Active 2024 TANNER HERNANDEZ MD [address] [place] [address], [address], [facility] 13:32:04 History of Spinal surgery 570890113 Active 2024 TANNER HERNANDEZ MD [address] [place] [address], [address], [facility] 13:32:06 Memory impairment 449383931 Active 2024 TANNER HERNANDEZ MD [address] [place], [address], [facility] 13:56:21 Adult health examination Active 2024 TANNER HERNANDEZ MD [address] [place], [address], [facility] 13:56:23 Problem Notes None recorded. Procedures Surgical History Date Name Laterality Status Provider Name and Address Organization Details Recorded Time 02/25/20 25 Tympanogram completed TOMMY MYERS, RAIZA-A [address] [place] [address], [phone], [facility] 02/24/2025 16:10:49 02/25/20 25 Audiogram completed TOMMY MYERS, RAIZA-A [address] [place], [address], [facility] 02/24/2025 16:10:46 02/25/20 25 [facility] 15:55:23 02/25/20 25 Cerumen removal - Instruments, Bilateral completed Ana [facility] 02/24/2025 15:54:12 01/31/20 22 Destruction Premalignant Lesion(s) completed Eneida Mckeon [facility] 01/30/2022 09:09:33 01/31/20 22 Destruction BN Lesions completed Eneida Mckeon [facility] 01/30/2022 09:09:47 01/31/20 22 Shave Lesion; face, ear, eyelid, nose, lip, muc memb completed GABRIELLE BOCANEGRA MD [address] [place], [address], [facility] 02/03/2022 07:57:17 02/01/20 21 Shave Lesion; trunk, arm, leg completed GABRIELLE BOCANEGRA MD [address] [place], [address], [facility] 02/03/2021 21:40:45 02/01/20 21 Destruction Premalignant Lesion(s) completed [facility] 01/31/2021 10:52:55 10/12/19 21 Destruction Premalignant Lesion(s) completed GABRIELLE BOCANEGRA MD [address] [place], [address], [facility] 10/12/2020 12:54:51 04/16/20 20 Suture/Staple removal completed [facility] 04/16/2020 10:26:33 04/05/20 20 Excision MN Lesion; trunk, arm, leg completed [facility] 04/05/2020 17:05:37 03/23/20 20 Destruction MN Lesion; trunk, arm, leg completed GABRIELLE BOCANEGRA MD [address] [place], [address], [facility] 04/01/2020 22:53:39 03/23/20 20 Destruction Premalignant Lesion(s) completed [facility] 03/23/2020 11:35:49 01/22/20 18 Destruction Premalignant Lesion(s) completed [facility] 01/21/2018 10:55:47 Other completed Not Available [facility] 02/05/2025 12:55:10 Total Hysterectomy completed Not Available [facility] 02/05/2025 12:55:10 Back Surgery completed TANNER HERNANDEZ MD [address] [place], [address], [facility] 02/05/2025 13:17:05 Cataract Surgery completed Not Available [facility] 02/05/2025 12:55:10 Cholecystectomy completed Not Available [facility] 02/05/2025 12:55:10 Flexible Sigmoidoscopy completed Not Available [facility] 02/05/2025 12:55:10 Hysterectomy completed Not Available [facility] 02/05/2025 12:55:10 Tonsillectomy completed Not Available [facility] 02/05/2025 12:55:10 total knee replacement completed TANNER HERNANDEZ MD [address] [place], [address], [facility] 02/05/2025 13:18:15 Imaging Results None recorded. Procedure Notes None recorded. Medical Equipment None Reported. Allergies Allergen ID Allergen Name Allergen Category Reaction Reaction Severity Criticality Documentation Date Start Date Code Code System Note Provider Name and Address Organization Details Recorded Time 904812 morphine sulfate medicatio n Not available Not available Not available 09/01/20162008 33675 RxNorm Comme nt: Creat ed By: Branden mcmillan;Cr eated Date: 2008 12:22 :34 PM; Not Available [facility] 6 03:16:33 563804 aspirin / caffeine / propoxyph katherine medicatio n Not available Not available Not available 09/01/20162008 73388 8 RxNorm Comme nt: Creat ed By: Branden mcmillan;Cr eated Date: 2008 12:22 :47 PM; Not Available [facility] 6 05:50:01 721768 thimerosa l medicatio n Not available Not available Not available 05/13/2024 10173 RxNorm Unabl e to get flu shot [facility] 4 09:48:49 Medications Name Sig Start Date Stop Date Status Note LastModified by Organization Details LastModified Time atorvasta tin 80 mg tablet Take 1 tablet every day by oral route. active Not Available Not Available No t Available Celexa 10 mg tablet Daily 02/05 completed Frequenc y: daily;Me dication Descript ion: citalopr [...] completed Not Available Not Available Not Available acetamino phen 300 mg-codein e 30 mg tablet Take 1 tablet every day by oral route as needed. active pain manageme nt- Sharri Herrera Not Available Not Available Not Available Aspir-Low 81 mg tablet,de layed release Daily 02/05 completed Duration : 10 days;Alex quency: daily;Me dication [...] 200 mg capsule Three times a week 02/05 completed PT NO LONGER TAKING Not Available Not Available Not Available bupropion HCl 100 mg tablet Take 1 tablet twice a day by oral route. 02/05 completed Not Available Not Available Not Available citalopra m 20 mg tablet Take 1 tablet every day by oral route. active Not Available Not Available No t Available triamcino lone acetonide 0.025 % topical cream APPLY A THIN LAYER TO THE AFFECTED AREA(S) BY TOPICAL ROUTE 2 TIMES PER DAY 2023 active Not Available Not Available Not Avai lable meclizine 25 mg tablet Take 1 tablet 3 times a day by oral route. active Not Available Not Available No t Available omeprazol e 20 mg capsule,d elayed release Take 1 capsule every day by oral route. active Not Available Not Available No t Available hydrocort isone 2.5 % topical cream apply to face BID x 2 week prn itching 2021 active Not Available Not Available Not Avai lable metoprolo l succinate ER 25 mg tablet,ex tended release 24 hr Take 1 tablet every day by oral route. active Not Available Not Available No t Available lisinopri l 40 mg tablet Bedtime 03/23 [...] capsule Not Available Not Available Not Available gabapenti n 100 mg tablet Take 1 tablet 3 times a day by oral route. active Not Available Not Available No t Available atorvasta tin 02/05 completed Not Available Not Available Not Available estradiol 02/05 completed PT NO LONGER TAKING Not Available Not Available Not Available omeprazol e 02/05 completed Not Available Not Available Not Available metoprolo l succinate 02/05 completed Not Available Not Available Not Available gabapenti n 02/05 completed Not Available Not Available Not Available Oyster Shell Calcium-V itamin D3 500 mg-10 mcg (400 unit) tablet Daily 02/05 completed Frequenc y: daily;Me dication Descript ion: calcium- vitamin D; Dosage:1 ; Route:or al; refills: 0 Not Available Not Available Not Available Centrum Silver 0.4 mg-300 mcg-250 mcg tablet Daily 02/05 completed Duration : 10 days;Alex quency: daily;Me dication Descript ion: multivit cody with minerals ; Dosage:1 ; Route:or al; refills: 0; Quantity :30 tablet Not Available Not Available Not Available apixaban 5 mg tablet Take 1 tablet twice a day by oral route. active Not Available Not Available No t Available bupropion HCl 150 mg tablet,12 hr sustained -release( smoking deterrent ) Take 1 tablet every day by oral route. active Not Available Not Available No t Available Vitals Date Recorded Body weight Body mass index (BMI) Body height Heart rate Oxygen saturation Oxygen saturation in Arterial blood by Pulse oximetry Systolic blood pressure Diastolic blood pressure Provider Name and Address Organization Details Last Updated DateTime 5 63371.4 2 g 26.1 kg/m2 149.86 cm 65 /min 98 % 98 % 123 mm[Hg] 74 mm[Hg] Dinesh Mendez [facility] 13:12:58 Social History Question Answer Notes LastModified by Organizat ion Details LastModified Time Tobacco Smoking Status Former Smoker Not Available [employer] 02/05/2025 12:55:10 What Is Your Level Of Caffeine Consumption? Moderate [email or web address] Information not available 02/05/2025 When Did You Quit Smoking? 16+yearssince lastcigarette [email or web address] Information not available 02/05/2025 What Is Your Current Pack Years? 10packyears API-27 Information not available 02/05/2025 What Is Your Relationship Status? [email or web address] Information not available 02/05/2025 At What Age Did You Start Smoking Tobacco? 18 API-27 Information not available 02/05/2025 How Many Years Have You Smoked Tobacco? 6 [email or web address]-27 Information not available 02/05/2025 Sex: Female Functional Status Question Answer Note LastModified by Organizat ion Details LastModified Time How many times per week do you consume alcohol? Less than 1 time per week [email or web address] Information not available 02/05/2025 Do you use any illicit or recreational drugs? No API-[email or web address] Information not available 02/05/2025 Do you or have you ever used any other forms of tobacco or nicotine? No [email or web address] Information not available 02/05/2025 What is your level of alcohol consumption? Occasional [email or web address] Information not available 02/05/2025 Are you currently employed? No [email or web address] Information not available 02/05/2025 Mental Status None recorded. Family History Relationship Description Onset Age of this Age Resolved Age Notes LastModified by Organization Details LastModified Time Sister Asthma [email or web address] Not available 10/2024 12:55:10 Sister Alzheimer's disease [email or web address] Not available 2024 12:55:10 Sister Arthritis [email or web address] Not available 02/05/2025 12:55:10 Sister Multiple myeloma [email or web address] Not available 10/2024 13:18:39 Mother Asthma [email or web address] Not available 10/2024 12:55:10 Mother Alzheimer's disease [email or web address] Not available 2024 12:55:10 Mother Arthritis [email or web address] Not available 02/05/2025 12:55:10 Mother Hypertensive disorder [email or web address] Not available 2024 12:55:10 Mother Dementia [email or web address] Not available 0 02/05/2025 12:55:10 Maternal Grandmother Hypertensive disorder [email or web address] Not available 2024 12:55:10 Maternal Grandmother Dementia [email or web address] Not available 02/05 12:55:10 Father Alzheimer's disease [email or web address] Not available 2024 12:55:10 Father Malignant neoplasm of lung [email or web address] Not available 2024 12:55:10 Father Arthritis [email or web address] Not available 02/05/2025 12:55:10 Medical History Condition Response Heart Problems Y Squamous Cell Carcinoma N Vision or Eye Problems Y Arthritis Y Ear or Hearing Problems Y Blood Clot Y Hospitalizations Y Cancer Y Basal Cell Carcinoma Y Reflux/GERD Y High Cholesterol Y Fibromyalgia Y Hypertension Y Osteoporosis Y Gynecological HistoryNo gynecological history recorded. Obstetrics History GPAL:G 0 P 0 0 0 0 Immunizations Vaccine Type Date Status Note Provider Nam e and Address Organization Details Recorded Time COVID-19, mRNA, LNP-S, PF, 30 mcg/0.3 mL dose 11/12/2020 [facility] 13:13:02 COVID-19, mRNA, LNP-S, PF, 30 mcg/0.3 mL dose 12/04/2020 [facility] 02/05/2025 13:13:02 COVID-19, mRNA, LNP-S, PF, 30 mcg/0.3 mL dose 07/06/2021 [facility] 02/05/2025 13:13:02 COVID-19, mRNA, LNP-S, PF, 30 mcg/0.3 mL dose, byron-sucrose 03/21/2022 completed Jefferina Page null, [facility] 02/05/2025 13:13:02 COVID-19, mRNA, LNP-S, PF, 30 mcg/0.3 mL dose, byron-sucrose 06/28/2022 completed Jefferina Page null, [facility] 02/05/2025 13:13:02 COVID-19, mRNA, LNP-S, bivalent, PF, 30 mcg/0.3 mL dose 09/13/2022 completed Jefferina Page null, [facility] 02/05/2025 13:13:02 RSV, recombinant, protein subunit RSVpreF, adjuvant reconstituted, 0.5 mL, PF 07/14/2023 completed Jefferina Page null, [facility] 02/05/2025 13:13:02 COVID-19, mRNA, LNP-S, PF, byron-sucrose, 30 mcg/0.3 mL 07/25/2023 completed Willispablito bernard, [facility] 02/05/2025 13:13:02 Tdap 01/18/2023 completed Willispablito Mendez marco antonio, [facility] 02/05/2025 13:13:02 Past Encounters Encounter ID Performer Location Encounter Start Date Encounter Closed Date Diagnosis/Indication Diagnosis SNOMED-CT Code Diagnosis ICD10 Code Diagnosis Note [id number] TANNER HERNANDEZ MD [facility] [address] [place] [address] 02/05/2025 12:55:09 02/05/2025 14:02:27 Anxiety 83454823 F41.9 Citalopram 20 mg daily, Wellbutrin 150 mg SR daily - Stable. Continue current medication s without changes Essential hypertension 15236112 I10 Losartan 100 mg daily, metoprolol 25 mg XR daily Today's Plan:- Bloodwork ordered today- Stable. Continue current medication s without changes Mixed hyperlipidemia 267 296355 E78.2 Atorvastat in 80 mg daily -Lipid panel ordered today. Continue current medication s without changes Primary fi bromyalgia syndrome 10017116 M79.7 Follows with rheumatxavier molina (Dr. Collin Bennett at [facility]). Takes gabapentin TID - Continue active management per antonia mloina Osteopenia 298087026 M85 .80 DEXA with osteopenia in 2023. Taking 4000 units VitD3 daily History of pulmonary embolus 080305649 Z86.711 Apixaban 5 mg BID-Diagno sed in Oct 2024. Has follow up with pulm in May 2025 to decide if Apixaban is needing to be continued - Stable. Continue current medication s without changes. F/U with pulm as scheduled Gastroesop hageal reflux disease without esophagitis 576189998 K21.9 Omeprazole 20 mg daily- Stable. Continue current medication s without changes History of Spinal surgery 197063540 Z98.890 -Kyphoplas ty done on Oct 17, 2024seen by pain medicine and given tylenol/co deine rx which she rarely uses. Vertigo 256584554 R42 -reportedl y had done vestibular rehab in the past which has helped. Not currently doing and using meclizine multiple times per week.Refer to ENT for considerat ion of vestibular rehab episodes Memory impairment 204225 006 R41.3 self reported. Difficult to assess given first visit. Will triage with bloodwork today Adult heal th examination 710328748 Z00.00 Baseline blood work ordered today. Requesting records from former PCP. Uncertain when she is due for Medicare wellness exam Health Concerns Section Related Observation LastModified by Organization Detai ls LastModified Time None Recorded Concern Status LastModified by Organization Details LastModified Time None Recorded Payers Encounter Date Sequence Insurance Name Policy Number Policy Vaughn Covered Member ID Vaughn Member ID Guarantor Name 02/05/2025 1 [place] Sarah G Tyrone [id number] Sarah G Tyrone 02/05/2025 2 [employer] (MEDICARE SUPPLEMENT) Sarah Hansen [id number] Sarah Hansen Notes Date Note Type Note Provider Name and Address Organization Details Recorded Time 02/05/2025 text/html Sarah Hansen is a 79 year old female presenting to [facility] care. Previous PCP was Dr. Santizo in [facility] [place]. She saw him last earlier this year. Her last annual was reportedly done in summer 2023. Her main concern is related to balance issues. She has been taking meclizine intermittently for years. She feels dizziness is worse when weather changes. Currently taking 4x weekly. Moving her head too quickly precipitates this but most symptoms are more lightheadedness/scar ce issues than true vertigo. She feels symptoms above and weakness are much worse since her hospitalization in Oct 2024. She is still undergoing PT twice weekly to help with strength and balance. Her other main concern is related to memory impairement. She has a fam hx of dementia and feels trouble with forgetting words. PMH: fibromyalgia, HTN, HLD, GERD, history of PE, osteopenia, anxiety PSH: see chart Family: See Chart Social History:Work: retired, formerRNHome: [facility]: former smoker, quit 50+ years agoAlcohol: occasionalIllicits: noneReligion: christianHobbies: plays piano, enjoys reading Annual Exam: due summer 2024 TANNER HERNANDEZ MD [address] [place], [address], [facility] 02/05/2025 15:35:22 OBGyn Episode No OBEpisode recorded.
--- OUTSIDE RECORDS SUMMARY | 2025-02-26 09:26 | XMS_ITS | Encounter Summary ---
Author Name [facility] Organization [facility] Address [address] [place] [id number] Support Name Relationship Address Phone DAYANMANAV Next of Kin [address] [place] [address] MANAV HANLEY Emergency Contact [address] [place] [address] Insurance Providers: All historical and current Section Date Range: From patient's date of to the date document was created. This section includes the names of all active insurance providers for the patient. Insurance Provider Type of Coverage Plan Name Start of Policy Coverage End of Policy Coverage Group Number Member ID Insurance Provider's Telephone Number Policy Vaughn's Name Patient's Relationship to Policy Vaughn MEDICARE (WNR) MEDICARE (M) PART A Aug 08, 2010 PART A [id number] Demarcus HANLEY PATIENT MEDICARE (WNR) MEDICARE (M) PART A Aug 08, 2010 PART A [id number] Demarcus HANLEY PATIENT MEDICARE (WNR) MEDICARE (M) PART B Aug 08, 2010 PART B [id number] Demarcus HANLEY PATIENT MEDICARE (WNR) MEDICARE (M) PART B Aug 08, 2010 PART B [id number] [phone] Demarcus HANLEY PATIENT MEDICARE (WNR) MEDICARE (M) PART A Aug 08, 2010 PART A [id number] Demarcus HANLEY PATIENT MEDICARE (WNR) MEDICARE (M) PART B Aug 08, 2010 PART B [id number] [phone] Demarcus HANLEY PATIENT MEDICARE (WNR) MEDICARE (M) PART A Aug 08, 2010 PART A [id number] Demarcus HANLEY PATIENT MEDICARE (WNR) MEDICARE (M) PART B Aug 08, 2010 PART B [id number] Demarcus HANLEY PATIENT MEDICARE PART D (WNR) MEDICARE (M) PART D Oct 08, 2010 PART D [id number] Demarcus HANLEY PATIENT MEDICARE PART D (WNR) MEDICARE (M) PART D Oct 08, 2010 PART D [id number] Demarcus HANLEY PATIENT MEDICARE PART D (WNR) PRESCRIPT ION PART D Aug 08, 2010 PART D [id number] [phone] Demarcus HANLEY PATIENT Selected Encounter This section includes the information on record at [place] for the Encounter. Date/Time Encounter Type Encounter Description Reason Pro vider Source February 25, 2025 11:32 AM Outpatient Encounter TELEPHONE/MEDICINE IHE Encounter Template Text not used by [facility] Encounter Notes: All associated encounter notes This section contains the clinical notes associated to the Encounter. Date/Time Encounter Note(s) Provider Source February 25, 2025 11:32 AM ADMINISTRATIVE NOT E: LOCAL TITLE: V9 [facility] ADMINISTRATIVE NOTE STANDARD TITLE: ADMINISTRATIVE NOTE DATE OF NOTE: FEBRUARY 25, 2025@11:32 ENTRY DATE: FEBRUARY 25, 2025@11:32:18 AUTHOR: MARK TORRES EXP COSIGNER: URGENCY: STATUS: COMPLETED Toxic Exposure Screening: Attempts to contact Hedley/caregiver to perform DANNIE: Contact type: Telephone-left message to call back [phone] /mario/ MARK TORRES [facility] NURSE PRACTITIONER Signed: 02/25/2025 11:32 MARK TORRES [facility]
--- OUTSIDE RECORDS SUMMARY | 2025-02-26 09:26 | XMS_ITS | Encounter Summary ---
Author Name [facility] [place] [facility] [place] Organization [facility] [facility] [place] Address [address] [place] [address] Support Name Relationship Address Phone DAYAN MANAV Next of Kin [address] [place] [address] MANAV HANLEY Emergency Contact [address] [place] [address] Insurance Providers: All historical and [...] PART A Aug 08, 2010 PART A [id number] Demarcus HANLEY PATIENT MEDICARE (WNR) MEDICARE (M) PART A Aug 08, 2010 PART A [id number] Demarcus HANLEY PATIENT MEDICARE (WNR) MEDICARE (M) PART B Aug 08, 2010 PART B [id number] [phone] Demarcus HANLEY PATIENT MEDICARE (WNR) MEDICARE (M) PART B Aug 08, 2010 PART B [id number] [phone] Demarcus HANLEY PATIENT MEDICARE (WNR) MEDICARE (M) PART A Aug 08, 2010 PART A [id number] Demarcus HANLEY PATIENT MEDICARE (WNR) MEDICARE (M) PART B Aug 08, 2010 PART B [id number] Demarcus HANLEY PATIENT MEDICARE (WNR) MEDICARE (M) PART A Aug 08, 2010 PART A [id number] Demarcus HANLEY PATIENT MEDICARE (WNR) MEDICARE (M) PART B Aug 08, 2010 PART B [id number] Demarcus HANLEY PATIENT MEDICARE PART D (WNR) MEDICARE (M) PART D Oct 08, 2010 PART D [id number] Demarcus HANLEY PATIENT MEDICARE PART D (WNR) MEDICARE (M) PART D Oct 08, 2010 PART D [id number] Demarcus HANLEY PATIENT MEDICARE PART D (WNR) PRESCRIPT ION PART D Aug 08, 2010 PART D [id number] [phone] Demarcus HANLEY PATIENT Selected Encounter This section includes the information on record at [place] for the Encounter. Date/Time Encounter Type Encounter Description Reason Pro vider Source February 25, 2025 12:00 AM Outpatient Encounter EVENT (HISTORICAL) IHE Encounter Template Text not used by [place]
--- OUTSIDE RECORDS SUMMARY | 2025-02-26 09:26 | XMS_ITS | Continuity of Care Document ---
Author Organization [facility] Address [address] [place] [address] Care Team Providers Care Perianesthesia Manager Name Role Phone TANNER HERNANDEZ Primary Care Provider Assessment No assessment recorded. Plan of Treatment Reminders Order Date Submit Date Provider Last Modified By Organization Details Last Modified Time Details Appointments MEDICARE WELLNESS VISIT 2024 02:30P M TANNER HERNANDEZ MD Not available Not available Not available DERMATOLO GY VISIT 2024 09:30A M GABRIELLE BOCANEGRA MD Not available Not available Not available Lab None recorded. Referral None recorded. Procedures None recorded. Surgeries None recorded. Imaging None recorded. Medication Orders None recorded. Patient TargetsNo targets recorded. Patient InstructionsNo instructions recorded. Reason for Referral None Reported. Results Created Date Observation Date Name Description Value Unit Range Abnormal Flag Note LastModifiedBy Organization Detail LastModifiedTime 02/26/20 25 02/24/2025 audio gram No observ ation record ed. BARCODE Not Available 2024 16:09:31 Result Notes None recorded. Problems Name Problem SNOMED Code Status Onset Date Resolution Date Notes Provider Name and Address Organization Details Recorded Time Essential hypertension 51200315 Active 2024 TANNER HERNANDEZ MD [address] [place] [address], [address] 1, [facility] 13:31:55 Anxiety 02615596 [place] 20[place] [address] [place] [address], [phone] 1, [facility] 13:31:55 Mixed hyperlipidemia 062893929 Active 2024 TANNER HERNANDEZ MD [address] [place] [address], 70[address] 1, [facility] 13:31:57 Primary fibromyalgia syndrome 57825053 Active 2024 TANNER HERNANDEZ MD [address] [place] [address], [address] 1, [facility] 13:31:59 Osteopenia 815221662 Active 2024 TANNER HERNANDEZ MD [address] [place] [address], 95875[address] 1, [facility] 13:32:00 History of pulmonary embolus 679952798 Active 2024 TANNER HERNANDEZ MD [address] [place] [address], 87387-078 1, [facility] 13:32:02 Gastroesophage al reflux disease without esophagitis 314609620 Active 2024 TANNER HERNANDEZ MD [address] [place] [address], 34482-461 1, [facility] 13:32:04 History of Spinal surgery 750961324 Active 2024 TANNER HERNANDEZ MD [address] [place] [address], 14713[address] 1, [facility] 13:32:06 Memory impairment 278336661 Active 2024 TANNER HERNANDEZ MD [address] [place] [address], [address]87[address] 1, [facility] 13:56:21 Adult health examination Active 2024 TANNER HERNANDEZ MD [address] [place] [address], 45519[address]355 1, [facility] 13:56:23 Problem Notes Documentation Provider Name and Address Organization Details Recorded Time Crossbow Maker Consult Not e : [facility] ? ? [address] [place] [id number], Darlene G (id #[id number], : 1945) [facility] [address] [place] [address] Date: 02/24/2025RE: Sarah Hansen, : 1945, PT ID #[id number] McKenzie MD, I would like to thank you for referring Sarah Hansen to our practice for consultation and evaluation. I have enclosed a copy of the office evaluation for your records. Sincerely, Electronically Signed by: ELKIN GREGORY MDEncounter Reason/DateNone recorded 02/24/2025 - 03:00PM - [facility]NT [facility] History of Present IllnessRef: [facility] Complaint: DizzinessTiming: Years, worsened over the past yearDuration: Intermittent each episode lasting a couple hours to a whole day, has minor episodes every day right nowLocation:Severity:Quality: mostly off-balance, no spinningContext:Modifying Factors: Meclizine, vestibular rehab in the past - last did this quite a few years ago, exacerbated by movement, wears hearing aidsAssoc signs/symptoms: says weather changes cause her to be dizziness, happens when moving head quickly, happens when getting up too fast or bending over fast, occasionally happens when rolling over or lying down, no N&V, aural fullness, no otalgia, Ad fullness - does not know if this gets worse when she is dizzyReview of SystemsNone recordedPhysical ExamConstitutional:General Appearance: well-nourished and in no acute distress. Communication: normal voice quality. Head/Face:Inspection: atraumatic. Facial strength: normal strength. Sinuses: no tenderness. Salivary glands: no parotid masses or submandibular masses. Palpation of the TMJ: non-tender. Eyes:Pupils: PERRLA, EOM intact, and conjunctiva non-injected. Ears:Right External ear: free of lesions. Left External ear: free of lesions. Right External auditory canal:canal occluded by cerumen. Left External auditory canal:canal occluded by cerumen. Nose:Nasal Dorsum: symmetric with no visible or palpable deformities. Septum: not markedly deformed. Turbinates: normal size and confrontation. Oral Cavity/Mouth:Lips, teeth, gums: normal lips and gums. Oral Mucosa: normal. Palate: normal hard palate and soft palate. Tongue: normal tongue. Tonsils: tonsils absent. Posterior pharynx: normal. Neck:Neck: trachea midline. Thyroid: no enlargement. Respiratory:Inspection/Auscult ation: good air movement, chest expands symmetrically. Cardiovascular System:Observation/Palpation of peripheral vascular system: carotid pulse normal. Lymph Nodes:Cervical: no palpable lymph node enlargement. Neurological System:Orientation: oriented to time, place, and person. Mood and affect: normal mood and affect. Cranial Nerves: Cranial Nerves II-XII intact.Procedure DocumentationCerumen removal - Instruments, Bilateral:Cerumen removal: Bilateral external auditory canals were cleaned thoroughly under microscopic exam using wax curettes. Cerumen plugging and squamous debris were removed with minimal difficulty. The tympanic membranes were noted to be normal. The patient tolerated the procedure well.Pendleton-Hallpike:Ana-Hallpike Maneuvers Head Right: negative Head Left: negative Nystagmus visualized Torsional Horizontal Other Comments:Assessment/Plan1.Dizz inessDix-Hallpike testing negative. Audiogram reviewed and interpreted. Asymmetric snhl right > left. Very severe on the right with poor discrimination score. MRI head/IACs to r/o acoustic neuroma. If normal would set her up for vestibular rehab. F/u after MRIR42: Dizziness and giddiness 2.Bilateral impacted cerumenRemoved from each canal.H61.23: Impacted cerumen, bilateral 3.Asymmetric SNHL (sensorineural hearing loss)Right > leftH90.3: Sensorineural hearing loss, bilateral Return to Office TANNER HERNANDZE MD for MEDICARE WELLNESS VISIT at [facility] on 03/12/2025 at 02:30 PM GABRIELLE BOCANEGRA MD for DERMATOLOGY VISIT at DERMATOLOGY [facility] on 05/12/2025 at 09:30 AM TANNER HERNANDEZ MD [facility] [place], [address], [facility] 02/24/2025 17:00:34 Procedures Surgical History Date Name Laterality Status Provider Name and Address Organization Details Recorded Time 02/25/20 25 Tympanogram completed TOMMY MYERS, [facility] [place] [address] [place], [address], [facility] 02/24/2025 16:10:49 02/25/20 25 Audiogram completed TOMMY MYERS, CCC-A [address] [place], [address], [facility] 02/24/2025 16:10:46 02/25/20 25 Pendleton-Hallpike completed Ana Diggs [facility] 02/24/2025 15:55:23 02/25/20 25 Cerumen removal - Instruments, Bilateral completed Ana Gonzaless [facility] 02/24/2025 15:54:12 01/31/20 22 Destruction Premalignant Lesion(s) completed Eneida Mckeon [facility] 01/30/2022 09:09:33 01/31/20 22 Destruction BN Lesions completed Eneida Mckeon [facility] 01/30/2022 09:09:47 01/31/20 22 Shave Lesion; face, ear, eyelid, nose, lip, muc memb completed GABRIELLE BOCANEGRA MD [address] [place], [address], [facility] 02/03/2022 07:57:17 02/01/20 21 Shave Lesion; trunk, arm, leg completed GABRIELLE BOCANEGRA MD [address] [place], [address], [facility] 02/03/2021 21:40:45 02/01/20 21 Destruction Premalignant Lesion(s) completed Silvina Hanna [facility] 01/31/2021 10:52:55 10/12/19 21 Destruction Premalignant Lesion(s) completed GABRIELLE BOCANEGRA MD [address] [place], [address], [facility] 10/12/2020 12:54:51 04/16/20 20 Suture/Staple removal completed Silvina Hanna [facility] 04/16/2020 10:26:33 04/05/20 20 Excision MN Lesion; trunk, arm, leg completed Silvina [facility] 04/05/2020 17:05:37 03/23/20 20 Destruction MN Lesion; trunk, arm, leg completed GABRIELLE BOCANEGRA MD [address] [place] [address], [address], [facility] 04/01/2020 22:53:39 03/23/20 20 Destruction Premalignant Lesion(s) completed Silvina [facility] 03/23/2020 11:35:49 01/22/20 18 Destruction Premalignant Lesion(s) completed Silvina [facility] 01/21/2018 10:55:47 Other completed Not Available [facility] 02/05/2025 12:55:10 Total Hysterectomy completed Not Available [facility] 02/05/2025 12:55:10 Back Surgery completed TANNER HERNANDEZ MD [address] [place] [address], [address], [facility] 02/05/2025 13:17:05 Cataract Surgery completed Not Available [facility] 02/05/2025 12:55:10 Cholecystectomy completed Not Available [facility] 02/05/2025 12:55:10 Flexible Sigmoidoscopy completed Not Available [facility] 02/05/2025 12:55:10 Hysterectomy completed Not Available [facility] 02/05/2025 12:55:10 Tonsillectomy completed Not Available [facility] 02/05/2025 12:55:10 total knee replacement completed TANNER HERNANDEZ MD [address] [place] [address], [address], [facility] 02/05/2025 13:18:15 Imaging Results None recorded. Procedure Notes None recorded. Medical Equipment None Reported. Allergies Allergen ID Allergen Name Allergen Category Reaction Reaction Severity Criticality Documentation Date Start Date Code Code System Note Provider Name and Address Organization Details Recorded Time 262387 morphine sulfate medicatio n Not available Not available Not available 09/01/20162008 38857 RxNorm Comme nt: Creat ed By: Branden Watkins eated Date: 2008 12:22 :34 PM; Not Available [facility] 6 03:16:33 375768 aspirin / caffeine / propoxyph katherine medicatio n Not available Not available Not available 09/01/20162008 91225 8 RxNorm Comme nt: Creat ed By: Branden Watkins eated Date: 2008 12:22 :47 PM; Not Available [facility] 6 05:50:01 556747 thimerosa l medicatio n Not available Not available Not available 05/13/2024 25270 RxNorm Unabl e to get flu shot [facility] 09:48:49 Medications Name Sig Start Date [...] No t Available Vitals Date Recorded Body height Body mass index (BMI) Body weight Provider Name and Address Organization Details Last Updated DateTime 02/24/2025 149.86 cm 26.1 kg/m2 95541.42 g Chaaicha Barrientos [facility] 02/24/2025 15:33:24 Social History Question Answer Notes LastModified by [employer] ion Details LastModified Time Tobacco Smoking Status [...] Functional Status Question Answer Note LastModified by [employer] ion Details LastModified Time How many times [...] Not available 02/05/2025 12:55:10 Sister Multiple myeloma [email or web address] Not available 10/2024 13:18:39 Mother Asthma API-27 [...] Medical History Condition Response Heart Problems Y Vision or Eye Problems Y Squamous Cell Carcinoma N Arthritis Y Ear or Hearing Problems Y [...] mcg/0.3 mL dose 11/12/2020 completed Jefferina Page null, [facility] 02/05/2025 13:13:02 COVID-19, mRNA, LNP-S, PF, 30 mcg/0.3 mL dose 12/04/2020 completed Jefferina Page null, [facility] 02/05/2025 13:13:02 COVID-19, mRNA, LNP-S, PF, 30 mcg/0.3 mL dose 07/06/2021 completed Jefferina Page null, [facility] 02/05/2025 13:13:02 COVID-19, mRNA, LNP-S, PF, 30 mcg/0.3 mL dose, byron-sucrose 03/21/2022 completed Jefferina Page null, [facility] 02/05/2025 13:13:02 COVID-19, mRNA, LNP-S, PF, 30 mcg/0.3 mL dose, byron-sucrose 06/28/2022 completed Jefferina Page null, [facility] 02/05/2025 13:13:02 COVID-19, mRNA, LNP-S, bivalent, PF, 30 mcg/0.3 mL dose 09/13/2022 completed Jefferina Page null, [facility] 02/05/2025 13:13:02 RSV, recombinant, protein subunit RSVpreF, adjuvant reconstituted, 0.5 mL, PF 07/14/2023 completed Jefferina Page null, [facility] 02/05/2025 13:13:02 COVID-19, mRNA, LNP-S, PF, byron-sucrose, 30 mcg/0.3 mL 07/25/2023 completed Jefferina Page null, [facility] 02/05/2025 13:13:02 Tdap 01/18/2023 completed Jefferina Page null, [facility] 02/05/2025 13:13:02 Past Encounters Encounter ID Performer Location Encounter Start Date Encounter Closed Date Diagnosis/Indication Diagnosis SNOMED-CT Code Diagnosis ICD10 Code Diagnosis Note [id number] TANNER HERNANDEZ MD [facility] [address] [place] [address] 02/05/2025 12:55:09 02/05/2025 14:02:27 Anxiety 31406092 F41.9 Citalopram 20 mg daily, Wellbutrin 150 mg SR daily - Stable. Continue current medication s without changes Essential hypertension 01465758 I10 Losartan 100 mg daily, metoprolol 25 mg XR daily Today's Plan:- Bloodwork ordered today- Stable. Continue current medication s without changes Mixed hyperlipidemia 267 543273 E78.2 Atorvastat in 80 mg daily -Lipid panel ordered today. Continue current medication s without changes Primary fi bromyalgia syndrome 66248251 M79.7 Follows with rheumatxavier molina (Dr. Collin Bennett at [facility] [place]). Takes gabapentin TID - Continue active management per rheumatxavier gy Osteopenia 857946493 M85 .80 DEXA with osteopenia in 2023. Taking 4000 units VitD3 daily History of pulmonary embolus 543577485 Z86.711 Apixaban 5 mg BID-Diagno sed in Oct 2024. Has follow up with pulm in May 2025 to decide if Apixaban is needing to be continued - Stable. Continue current medication s without changes. F/U with pulm as scheduled Gastroesop hageal reflux disease without esophagitis 469993889 K21.9 Omeprazole 20 mg daily- Stable. Continue current medication s without changes History of Spinal surgery 087675709 Z98.890 -Kyphoplas ty done on Oct 17, 2024seen by pain medicine and given tylenol/co deine rx which she rarely uses. Vertigo 554625996 R42 -reportedl y had done vestibular rehab in the past which has helped. Not currently doing and using meclizine multiple times per week.Refer to ENT for considerat ion of vestibular rehab episodes Memory impairment 241067 006 R41.3 self reported. Difficult to assess given first visit. Will triage with bloodwork today Adult heal th examination 634583406 Z00.00 Baseline blood work ordered today. Requesting records from former PCP. Uncertain when she is due for Medicare wellness exam [id number] ELKIN GREGORY MD [facility] [address] [place] [address] 02/24/2025 15:27:26 02/25/2025 13:30:12 Dizziness 994927582 R42 Pendleton-Hallpi ke testing negative. Audiogram reviewed and interprete d. Asymmetric snhl right > left. Very severe on the right with poor discrimina tion score. MRI head/IACs to r/o acoustic neuroma. If normal would set her up for vestibular rehab. F/u after MRI Impacted c erumen of bilateral ears 3890360675 537318 H61.23 Removed from each canal. Asymmetric al sensorineural hearing loss 751504774 H90.3 Right > left [id number] FAIZA MO, AUD, CCC-A [facility] [address] [place] [address] 02/24/2025 16:05:44 02/25/2025 04:20:18 Dizziness and giddiness 739271959 R42 Ear pressu re sensation 923760305 H93.8X3 Sensorineu ral hearing loss of bilateral ears 302198064 H90.3 Health Concerns Section Related Observation LastModified by Organization Detai ls LastModified Time None Recorded Concern Status LastModified by Organization Details LastModified Time None Recorded Payers Encounter Date Sequence Insurance Name Policy Number Policy Vaughn Covered Member ID Vaughn Member ID Guarantor Name 02/24/2025 1 [place] Sarah G Scovell [id number] Sarah G Scovell 02/24/2025 2 Present (MEDICARE SUPPLEMENT) Sarah G Scovell [id number] Sarah G Scovell Notes Date Note Type Note Provider Name and Address Organization Details Recorded Time 02/24/2025 text/html Ref: Tanner Hernandez, [facility] Complaint: DizzinessTiming: Years, worsened over the past yearDuration: Intermittent each episode lasting a couple hours to a whole day, has minor episodes every day right nowLocation:[place] ty:Quality: mostly off-balance, no spinningContext:Mo difying Factors: Meclizine, vestibular rehab in the past - last did this quite a few years ago, exacerbated by movement, wears hearing aidsAssoc signs/symptoms: says weather changes cause her to be dizziness, happens when moving head quickly, happens when getting up too fast or bending over fast, occasionally happens when rolling over or lying down, no N&V, aural fullness, no otalgia, Ad fullness - does not know if this gets worse when she is dizzy ELKIN GREGORY MD [address] [place], [address], [facility] 02/24/2025 16:43:00 OBGyn Episode No OBEpisode recorded.
[2025-02-26 09:31] VITALS: BP 140/69; PULSE 67; RESP 14; O2SAT 96; BMI 25.0
--- NOTE | 2025-02-26 10:06 | A.OFFVIS_ITS ---
[facility] Disclaimer: The information contained in this section may have been updated after the patient was seen, as this information can be updated by other users. 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 Acute respiratory distress syndrome (ARDS) Elevated troponin Vulvar lesion Vasomotor symptoms due to menopause Unstable angina Parotitis Encounter for pre-operative cardiovascular clearance Chest pressure ARDS (adult respiratory distress syndrome) Pneumonia Thyroid nodule Memory loss Ataxia, unspecified Lumbago with sciatica, left side Primary generalized (osteo)arthritis Vitamin D deficiency, unspecified Abnormal electrocardiogram [ECG] [EKG] Fibromyalgia Abnormal EKG Diastolic dysfunction HTN (hypertension) HLD (hyperlipidemia) Gastroesophageal reflux disease Surgical History History of tonsillectomy Presence of artificial knee joint, bilateral History of cholecystectomy H/O total hysterectomy Family History Other Family history of Alzheimer disease Family history of cancer Social History Smoking Status: Former smoker second hand exposure: No alcohol intake: never substance use type: denies use current occupational status: other Travel in the last 8 weeks?: None household members: spouse housing: house current occupational exposures/hazards: No caffeine: Yes PM Subjective & Objective Subjective Subjective:: Patient is a pleasant 79-year-old female who presents today for follow-up and worsening pain. She rates her pain today an 8 out of 10. Patient states she has been having more pain in her low back along her left hip. Patient does state the pain is worse with prolonged activity such as sitting or standing. Patient does state the pain is interfering with her ability perform activities of daily living such as cooking and cleaning. Patient does state that she would be interested in additional injection therapy. Patient does state from our last visit that she is still on her blood thinner for her blood clots but she has been back to the doctor and has additional follow-ups coming up and they are anticipating having her be able to stop this medication, May. Patient is still seeing physical therapy twice a week and feels like this does still help. Patient does however make mention that she did trip about a month ago causing her to stumble and fall. She does not feel like she did anything of significance. Patient does also make mention that she has changed providers to a Tanner Mcdonnell at the [facility]. She states he is very thorough. Her August has been reviewed and is appropriate. Review of Systems: General: No recent weight changes, no fever, no sleep disturbances Respiratory: No cough, no shortness of air, no recurring pulmonary infections Cardiovascular/peripheral vascular: No chest pain, no palpitations, no edema, no shortness of breath Gastrointestinal: No new onset incontinence, normal bowel movements reported Genitourinary: No new onset incontinence Musculoskeletal: Low back pain, left hip pain Psychiatric: [Normal mood/affect] Neurological: [Denies weakness in extremities], [denies balance issues] Pain at rest (0-10 scale): 8 Objective Objective:: Physical Exam: General: Alert and oriented x3, no acute distress, pleasant and cooperative Lungs: Respirations even and unlabored, symmetrical chest expansion Eyes: PERRL Musculoskeletal: Flexion and extension of lumbar [spine] somewhat guarded secondary to pain, [antalgic gait noted] point tenderness along left SI with positive left Apollo's, Perry's, Gaenslen's, compression and distraction exam Neurological: Speech clear, no gross sensory deficit Has patient had previous pain injection?: No Conservative treatment options previously tried: Home exercise plan Length of treatment: Longer than 12 weeks and Physical Therapy Length of treatment: Ongoing Meds Home Medications and Allergies Home Medications ?Medication ?Instructions ?Recorded ?Confirmed ?Type aspirin 81 mg tablet,delayed 81 mg PO DAILY 04/22/18 02/26/25 History release hydrocortisone 2.5 % topical cream 1 applic topical DIRECTED Skin 10/31/21 02/26/25 History Condition gabapentin 100 mg capsule 100 mg PO BIDP PRN nerve pain 05/15/23 02/26/25 History metoprolol succinate 25 mg 25 mg PO DAILY #90 tabs 12/10/23 02/26/25 Rx tablet,extended release 24 hr losartan 100 mg tablet 100 mg PO DAILY 10/17/24 02/26/25 History cholecalciferol (vitamin D3) 75 4,000 unit PO DAILY 11/25/24 02/26/25 History mcg (3,000 unit) tablet apixaban 5 mg tablet 5 mg PO BID #180 tabs 12/24/24 02/26/25 Rx atorvastatin 80 mg tablet 80 mg PO HS #90 tabs 12/30/24 02/26/25 Rx omeprazole 20 mg capsule,delayed 20 mg PO DAILY #30 caps 01/21/25 02/26/25 Rx release acetaminophen 300 mg-codeine 30 mg 1 tab PO DAILY #30 tabs 01/28/25 02/26/25 Rx tablet bupropion HCl 150 mg tablet,12 hr 150 mg PO DAILY #90 ea 02/06/25 02/26/25 Rx sustained-release citalopram 20 mg tablet See Rx Instructions .Route 02/06/25 02/26/25 Rx .COMPLEX #90 tabs New Prescriptions to Start Prescriptions: Allergies Allergy/AdvReac Type Severity Reaction Status Date / Time morphine Allergy Unknown Verified 12/24/24 13:03 allergy reaction propoxyphene (From Darvon) Allergy Unknown Verified 12/24/24 13:03 allergy reaction thimerosal (From Merthiolate Allergy Unknown Verified 12/24/24 13:03 (thimerosal)) allergy reaction Assessment and Plan *Assessment and plan (1) Sacroiliitis: Status: Acute Category: Medical Code(s): M46.1 - Sacroiliitis, not elsewhere classified (2) Left hip pain: Status: Acute Category: Medical Code(s): M25.552 - Pain in left hip Plan Patient is experiencing worsening pain along the low back and left hip. They did have limited range of motion of the lumbar spine along with point tenderness along left SI joints and a left bilateral Apollo's, Perry's, Gaenslen's, compression and distraction exam. I did discuss with the patient that I do believe they would benefit from left SI injections. Risk and benefits were discussed with the patient and they would like to proceed forward with this option. Patient has tried and failed conservative therapy including oral medications, heat and ice, topicals, physical therapy that is still ongoing and continued at home stretching exercise for longer than 12 weeks that was phys ician guided. Patient has a history of chronic sacroiliitis with her last injection in April 2024 that did provide 80% relief and lasted more than 3 months. This will be a therapeutic SI injection with less than 1.5 mL of solution to be injected. Patient is not a candidate of SI fusion due to her significant osteoporosis. I did review over again with her at today's visit that I do believe that she really would benefit from being on a prescription strength medication for her osteoporosis. I have recommended she follow-up with her primary care regarding this. Patient did also make mention today whether or not if we are able to take over the gabapentin if she needs those 2. I did residence counselor her that we would just need something in writing from her current provider who prescribes this and that I have no issue taking over this medication. She acknowledges understanding agrees with this plan of care. Patient will be scheduled for left SI injections under fluoroscopy. Patient has been instructed to contact the clinic with any concerns before the next appointment. Dr. Alonzo has reviewed this note and agrees with this plan of care. This note was dictated using voice recognition software and make contain errors or omissions. All injections are used with Lidocaine or Bupivacaine and dexamethasone unless diagnostic in which no steroids are used.
== END 2025-02-26 23:59 | disposition home or self-care (01) ==
LOC: SC.PAIN 09:24
PROVIDERS: Visit Provider Nurse Practitioner Family
DX: M46.1 Sacroiliitis, not elsewhere classified (principal); M25.552 Pain in left hip; Z87.891 Personal history of nicotine dependence; Z73.89 Other problems related to life management difficulty
CPT/HCPCS: 99212; G0463

== ENCOUNTER 2025-03-05 13:00 | Outpatient (RCR) | payer MEDICARE, OTHER, SELFPAY ==
--- NOTE | 2025-02-12 15:20 | HMH.RHREAS ---
Rehab Reassessment Rehab OP Re-assessment Start: 02/06/25 15:26 Freq: Status: Active Protocol: Document 02/12/25 14:22 ALIN (Rec: 02/12/25 15:20 ALIN [id number]) E-signed By Peterson Wray, PT Oswestry Index Section 1 Pain Intensity The pain is moderate and does not vary much Section 2 Personal Care (Washing,Dresing) my way of washing or dressing even though it causes some pain Section 3 Lifting I can lift heavy weights without extra pain Section 4 Walking I have some pain when walking but it does not increase with distance Section 5 Sitting I can sit in my favorite chair for as long as I like Section 6 Standing I cannot stand more than 1 hour without increasing pain Section 7 Sleeping I get no pain in bed Section 8 Social Life Pain has no significant effect on my social life apart from limiting Section 9 Traveling I get some pain when traveling , but none of my usual forms of travel m Section 10 Changing Degreee of Pain My pain seems to be getting better, but improvement is slow Score and Risk Level Oswestry Sc 13 Oswestry Risk Level Mild Disability Rehab Re-assessment Subjective Subjective Pt reports that she is approximately 50% improved at this date. Reports that she feels like she should be further along than she is. Reports that her ability to stand has improved a lot. Reports that she would estimate that she can stand for at least 30 minutes before her back begins to give her troubles. Also reports that she is able to do some small lookback coordinator, such as washing dishes. Reports that her balance continues to give her trouble. She reports that she ambulates with a sP cane whenever she leaves the home. Reports pain this date at 7/10 . Pain at worst continues to be a 9/10. Objective Objective Notes KATHY: 13 (18 on IE) ROM: - Lumbar Flexion: 70 - Lumbar Extension: 12 - Lumbar LF: 12L 14 R MMT: - Hip Flexion: 4 - Hip ABD: 3+ B - Hip ADD: 4 B - Knee Extension 4 B - Knee Flexion 4 B FT EC: 30s FT EC on Foam: 12s Assessment Progress Assessment Progressing as Expected Assessment Notes Thus far, the pt has undergone one month of PT with an emphasis on improving lumbar mobility, lumbopelvic motor control and LE strengthening, to which the pt has tolerated well. She has met multiple of her stated short term and long -term goals at this point in her care. Her balance continues to be her biggest complaint and impairment to date. Skilled PT remains indicated for this pt to promote a return to her PLOF and to address her remaining functional impairments. Patient goals met ST,3 LT,6 Plan Plan Continue as per initial POC. Increased emphasis on balance training and standing exercises going forward. Frequency of Therapy 2/week Duration of therapy 4 weeks Time and Billing Re-Eval Time 9 Re-Eval Billing Units 0 Charge for PT reassessment? No PHYSICIAN CERTIFICATION: I certify the specified therapy services for Sarah Hansen are required, authorized, and reviewed every 30 days.
== END 2025-03-05 23:59 | disposition home or self-care (01) ==
LOC: PT 13:00
PROVIDERS: PCP Internal Medicine; Visit Provider Nurse Practitioner Family
DX: M51.369 Other intervertebral disc degeneration, lumbar region without mention of lumbar back pain or lower extremity pain (principal); M46.1 Sacroiliitis, not elsewhere classified; M54.16 Radiculopathy, lumbar region; M54.9 Dorsalgia, unspecified; G89.29 Other chronic pain; R10.9 Unspecified abdominal pain
CPT/HCPCS: 97014; 97110; 97140; G0283

== ENCOUNTER 2025-03-18 13:11 | Outpatient (CLI) | payer MEDICARE, OTHER, SELFPAY ==
--- OUTSIDE RECORDS SUMMARY | 2025-02-25 07:32 | XMS_ITS | Continuity of Care Document ---
Author Name [facility] Organization [facility] Care Team Providers Care Education Analyst Name Role Phone [facility] Unavailable Unavailable Problems Combined list of problems from Department of [facility] and [facility] facilities. It does not include entries that were removed or entered in error. Problem Status Onset Date Problem Type Date of Resolution Comments Source Asymmetric sensorineural hearing loss Active Condition [facility] Diagnosis: ICD-10-CM Z46.1 Encounter for fitting and adjustment of hearing aid Active Diagnosis [facility] Diagnosis: ICD-10-CM H90.5 Unspecified sensorineural hearing loss Active Diagnosis [facility] Encounters Combined list of: 1) Encounters from [facility] facilities going backup to the last 18 months, not all [place] inpatient encounters are included; 2) Encounters from the [facility] of [facility] facilities going backup to 280 months. Location Location Details Encounter Type Encounter Number Reason For Visit Attending Provider ADM Date DC Date Status Disposition Source [facility] Outpatient Encounter [id number] ISELACALEB FELY [place] 10[facility]11 [place] [facility] [place] [id number] Diagnos is: ICD-10- CM H90.5 Unspeci fied sensori neural hearing loss SUNDAR BATES STIBrijesh 10/11 [place] [facility] [place] [id number] Diagnos is: ICD-10- CM Z46.1 Encount er for fitting and adjustm ent of hearing aid SUNDAR BATES STIBrijesh 11/08 [place] [facility] HEARING AID REPAIR/MOD IFYING [id number] Diagnos is: ICD-10- CM Z46.1 Encount er for fitting and adjustm ent of hearing aid DUCYANCI ALEKS Rivera 12/18 [place] [facility] HEARING AID REPAIR/MOD IFYING [id number] Diagnos is: ICD-10- CM Z46.1 Encount er for fitting and adjustm ent of hearing aid Shaylee BRIDGES 01/07 [place] [facility] Outpatient Encounter [id number] 02/25 [place] [facility] Outpatient Encounter [id number] 02/25 [place] [facility]
--- OUTSIDE RECORDS SUMMARY | 2025-03-18 13:14 | XMS_ITS | Continuity of Care Document ---
Author Organization [facility], INTERNAL MEDICINE SB Address [address] [place] [id number] Care Team Providers Care Magazine Repairer Name Role Phone TANNER HERNANDEZ Primary Care Provider Assessment Encounter Date Assessment Date Assessment LastModified by Organization Details LastModified Time 02/05/2025 02/05/2025 79 year old female with fibromyalgia, HTN, HLD, GERD, history of PE, osteopenia, anxiety here to establish care with PCP. [email or web address] Not available 02/05/2025 15:34:25 Plan of Treatment Reminders Order Date Submit Date Provider Last Modified By Organization Details Last Modified Time Details Appointments MAMMOGRA M 2024 10:35A M MAMMOGRAM Not available Not available Not available DERMATOL OGY VISIT 2024 09:30A M GABRIELLE BOCANEGRA MD Not available Not available Not available RECHECK 2024 11:30A M TANNER HERNANDEZ MD Not available Not available Not available Lab vitamin B12 + folate, serum or blood 2024 025 [facility], [address] [place] [address], [phone], 02/05/2025 16:14:15 lipid panel, serum 2024 025 [facility], [address] [place] [address], [id number], 02/05/2025 16:09:39 CBC w/ auto diff 2024 025 [facility], [address] [place] [address], [id number], 02/05/2025 15:53:04 CMP, serum or plasma 2024 025 [facility], [address] [place] [address], [phone], 02/05/2025 16:09:41 glycohem oglobin, total, blood 2024 025 [facility], [address] [place] [address], [id number], 02/05/2025 16:04:00 urinalys is, complete 2024 025 [facility], [address] [place] [address], [id number], 02/05/2025 17:29:22 TSH, serum, reflex free T4 2024 025 [facility], [address] [place] [address], [id number], 02/05/2025 16:05:22 Referral otolaryn gologist referral 2024 025 [email or web address] Jose F Foster MD, [address] [place] [address], [phone], 02/05/2025 14:08:53 Procedures None recorded . Surgeries None recorded . Imaging None recorded . Medication Orders None recorded . Patient TargetsNo targets recorded. Patient Instructions Encounter Date Encounter Id Patient Instructions Last Modified By Organization Details Last Modified Time 02/05/2025 [id number] Follow up in 1 month for recheck (possible medicare wellness exam). 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 [email or web address] Not Available 02/2025 14:45:24 Result Notes None recorded. Problems Name Problem SNOMED Code Status Onset Date Resolution Date Notes Provider Name and Address Organization Details Recorded Time Essential hypertension 20433506 Active 2024 TANNER HERNANDEZ MD [address] [place] [address], [phone], [facility] 07:01:53 Anxiety 82944014 Active 2024 TANNER HERNANDEZ MD [address] [place] [address], [phone], [facility] 07:01:54 Mixed hyperlipidemia 482424461 Active 2024 TANNER HERNANDEZ MD [address] [place] [address], [phone], [facility] 07:01:59 Primary fibromyalgia syndrome 97668093 Active 2024 TANNER HERNANDEZ MD [address] [place] [address], [address], [facility] 07:02:02 Osteopenia 800243513 Active 2024 TANNER HERNANDEZ MD [address] [place] [address], [address], [facility] 07:02:04 History of pulmonary embolus 602681288 Active 2024 TANNER HERNANDEZ MD [address] [place] [address], [address], [facility] 13:32:02 Gastroesophage al reflux disease without esophagitis 112991887 Active 2024 TANNER HERNANDEZ MD [address] [place] [address], [address], [facility] 07:01:56 History of Spinal surgery 547487009 Active 2024 TANNER HERNANDEZ MD [address] [place] [address], [address], [facility] 13:32:06 Memory impairment 524484020 Active 2024 TANNER HERNANDEZ MD [address] [place] [address], [address], [facility] 13:56:21 Adult health examination Active 2024 TANNER HERNANDEZ MD [address] [place] [address], [address], [facility] 13:56:23 Problem Notes None recorded. Procedures Surgical History Date Name Laterality Status Provider Name and Address Organization Details Recorded Time 02/25/20 Tympanogram completed TOMMY MYERS, RAIZA-A [address] [place] [address], [phone], [facility] 02/24/2025 16:10:49 02/25/20 25 Audiogram completed TOMMY MYERS [facility] [address] [place] [address], [phone], [facility] 02/24/2025 16:10:46 02/25/20 25 [facility] 02/24/2025 15:55:23 02/25/20 25 Cerumen removal - Instruments, Bilateral completed [facility] 02/24/2025 15:54:12 01/31/20 22 Destruction Premalignant Lesion(s) completed Eneida Mckeon [facility] 01/30/2022 09:09:33 01/31/20 22 Destruction BN Lesions completed Eneida Mckeon [facility] 01/30/2022 09:09:47 01/31/20 22 Shave Lesion; face, ear, eyelid, nose, lip, muc memb completed GABRIELLE BOCANEGRA MD [address] [place] [address], [phone], [facility] 02/03/2022 07:57:17 02/01/20 21 Shave Lesion; trunk, arm, leg completed GABRIELLE BOCANEGRA MD [address] [place] [address], [phone], [facility] 02/03/2021 21:40:45 02/01/20 21 Destruction Premalignant Lesion(s) [place] [facility] [place]/31/2021 10:52:55 10/12/19 21 Destruction Premalignant Lesion(s) completed GABRIELLE BOCANEGRA MD [address] [place], [address], [facility] 10/12/2020 12:54:51 04/16/20 20 Suture/Staple removal [place] [facility] 04/16/2020 10:26:33 04/05/20 20 Excision MN Lesion; trunk, arm, leg [place] [facility] 04/05/2020 17:05:37 03/23/20 20 Destruction MN Lesion; trunk, arm, leg completed GABRIELLE BOCANEGRA MD [address] [place], [address], [facility] 04/01/2020 22:53:39 03/23/20 20 Destruction Premalignant Lesion(s) completed [facility] 03/23/2020 11:35:49 01/22/20 18 Destruction Premalignant Lesion(s) [place] [facility] [place]/21/2018 10:55:47 Other completed Not Available [facility] 02/05/2025 12:55:10 Total Hysterectomy completed Not Available [facility] 02/05/2025 12:55:10 Back Surgery completed TANNER HERNANDEZ MD [address] [place], [address], [facility] 02/05/2025 13:17:05 Cataract Surgery completed Not Available [facility] 02/05/2025 12:55:10 Cholecystectomy completed Not Available [facility] 02/05/2025 12:55:10 Flexible Sigmoidoscopy completed Not Available [facility] 02/05/2025 12:55:10 Hysterectomy completed Not Available [facility] 02/05/2025 12:55:10 Tonsillectomy completed Not Available [facility] 02/05/2025 12:55:10 total knee replacement completed TANNER HERNANDEZ MD [address] [place], [address], [facility] 02/05/2025 13:18:15 Joint Replacement completed Not Available [facility] 03/12/2025 13:49:12 Knee Surgery completed Not Available [facility] 03/12/2025 13:49:12 Imaging Results None recorded. Procedure Notes None recorded. Medical Equipment None Reported. Allergies Allergen ID Allergen Name Allergen Category Reaction Reaction Severity Criticality Documentation Date Start Date Code Code System Note Provider Name and Address Organization Details Recorded Time 010787 morphine sulfate medicatio n Not available Not available Not available 09/01/20162008 95165 RxNorm Comme nt: Creat ed By: Branden mcmillan;Cr eated Date: 2008 12:22 :34 PM; Not Available [facility] 6 03:16:33 547533 aspirin / caffeine / propoxyph katherine medicatio n Not available Not available Not available 09/01/20162008 28886 8 RxNorm Comme nt: Creat ed By: Branden mcmillan;Cr eated Date: 2008 12:22 :47 PM; Not Available [facility] 6 05:50:01 802088 thimerosa l medicatio n Not available Not available Not available 05/13/2024 71831 RxNorm Unabl e to get flu shot [facility] 4 09:48:49 Medications Name Sig Start Date Stop Date Status Note LastModified by Organization Details LastModified Time atorvasta tin 80 mg tablet Take 1 tablet every day by oral route. 2024 active Not Available Not Available Not Avai lable Celexa 10 mg tablet Daily 02/05 completed [...] 1 tablet every day by oral route. 2024 active Not Available Not Available Not Avai lable triamcino lone acetonide 0.025 % topical cream [...] 1 capsule every day by oral route. 2024 active Not Available Not Available Not Avai lable hydrocort isone 2.5 % topical cream apply to face BID x 2 week prn itching 2021 active Not Available Not Available Not Avai lable metoprolo l succinate ER 25 mg tablet,ex tended release 24 hr Take 1 tablet every day by oral route. 2024 active Not Available Not Available Not Avai lable lisinopri l 40 mg tablet Bedtime 03/23 completed Duration : 30 days;Alex quency: hs;Medic ation Descript ion: lisinopr il; Dosage:1 ; Route:or al; refills: 5; Quantity :30 tablet Not Available Not Available Not Available losartan 100 mg tablet Take 1 tablet every day by oral route. 2024 active Not Available Not Available Not Avai lable Avodart 0.5 mg capsule Daily 03/23 completed Frequenc y: daily;Me dication Descript ion: dutaster adrienne; Dosage:1 ; Route:or al; refills: 1; Quantity :90 capsule Not Available Not Available Not Available gabapenti n 100 mg tablet Take 1 tablet 3 times a day by oral route. active rheumato logy- [facility] Not Available Not Available Not Available atorvasta tin 02/05 completed Not Available [...] twice a day by oral route. active pulmonol ogy Not Available Not Available Not Available bupropion HCl 150 mg tablet,12 hr sustained -release( smoking deterrent ) Take 1 tablet every day by oral route. 2024 active Not Available Not Available Not Avai lable Vitals Date Recorded Body weight Body mass index (BMI) Body height Heart rate Oxygen saturation Oxygen saturation in Arterial blood by Pulse oximetry Systolic blood pressure Diastolic blood pressure Provider Name and Address Organization Details Last Updated DateTime 5 63585.4 2 g 26.1 kg/m2 149.86 cm 65 /min 98 % 98 % 123 mm[Hg] 74 mm[Hg] Dinesh Mendez [facility] 13:12:58 Social History Question Answer Notes LastModified by Organizat ion Details LastModified Time Tobacco Smoking Status Former Smoker Not Available [employer] 02/05/2025 12:55:10 What Is Your Level Of Caffeine Consumption? Moderate [email or web address] Information not available 02/05/2025 When Did You Quit Smoking? 16+yearssince lastcigarette [email or web address] Information not available 02/05/2025 What Was The Date Of Your Most Recent Tobacco Screening? 03/12/2025 [email or web address] Information not available 03/12/2025 What Is Your Current Pack Years? 10packyears [...] Sister Alzheimer's disease [email or web address] Not available 2024 13:49:12 Sister Arthritis [email or web address] Not available 02/05/2025 12:55:10 Sister Multiple myeloma [email or web address] Not available 2024 13:49:12 Mother Asthma [email or web address] Not available 10/2024 12:55:10 Mother Alzheimer's disease [email or web address] Not available 2024 12:55:10 Mother Arthritis [email or web address] Not available 02/05/2025 12:55:10 Mother Hypertensive disorder [email or web address] Not available 2024 12:55:10 Mother Dementia [email or web address] Not available 0 02/05/2025 12:55:10 Maternal Grandmother Hypertensive disorder [email or web address] Not available 2024 12:55:10 Maternal Grandmother Dementia [email or web address] Not available 02/05 12:55:10 Father Alzheimer's disease [email or web address] Not available 2024 13:49:12 Father Malignant neoplasm of lung [email or web address] Not available 2024 12:55:10 Father Arthritis [email or web address] Not available 02/05/2025 12:55:10 Medical History Condition Response Vision or Eye Problems Y Arthritis Y Blood Clot Y Cancer Y Fibromyalgia Y Heart Problems Y Squamous Cell Carcinoma N Ear or Hearing Problems Y Hospitalizations Y Pulmonary Embolism Y High Cholesterol Y Basal Cell Carcinoma Y Reflux/GERD Y Hypertension Y Osteoporosis Y Gynecological HistoryNo gynecological history recorded. Obstetrics History GPAL:G 0 P 0 0 0 0 Immunizations Vaccine Type Date Status Note Provider Nam e and Address Organization Details Recorded Time COVID-19, mRNA, LNP-S, PF, 30 mcg/0.3 mL dose 11/12/2020 completed Dinesh Mendez null, [facility] 02/05/2025 13:13:02 COVID-19, mRNA, LNP-S, PF, 30 mcg/0.3 mL dose 12/04/2020 completed Dinesh Mendez null, [facility] 02/05/2025 13:13:02 COVID-19, mRNA, LNP-S, PF, 30 mcg/0.3 mL dose 07/06/2021 completed Dinesh Mendez null, [facility] 02/05/2025 13:13:02 COVID-19, mRNA, LNP-S, PF, 30 mcg/0.3 mL dose, byron-sucrose 03/21/2022 completed Dinesh Mendez null, [facility] 02/05/2025 13:13:02 COVID-19, mRNA, LNP-S, PF, 30 mcg/0.3 mL dose, byron-sucrose 06/28/2022 completed Dinesh Mendez null, [facility] 02/05/2025 13:13:02 COVID-19, mRNA, LNP-S, bivalent, PF, 30 mcg/0.3 mL dose 09/13/2022 completed Dinesh Page null, [facility] 02/05/2025 13:13:02 RSV, recombinant, protein subunit RSVpreF, adjuvant reconstituted, 0.5 mL, PF 07/14/2023 completed Dinesh Page null, [facility] 02/05/2025 13:13:02 COVID-19, mRNA, LNP-S, PF, byron-sucrose, 30 mcg/0.3 mL 07/25/2023 completed Dinesh Mendez null, [facility] 02/05/2025 13:13:02 Tdap 01/18/2023 completed Dinesh Mendez null, [facility] 02/05/2025 13:13:02 COVID-19, mRNA, LNP-S, PF, byron-sucrose, 30 mcg/0.3 mL 06/13/2024 completed TANNER HERNANDEZ MD [address] [place] [address], [address], [facility] 03/12/2025 06:58:52 Past Encounters Encounter ID Performer Location Encounter Start Date Encounter Closed Date Diagnosis/Indication Diagnosis SNOMED-CT Code Diagnosis ICD10 Code Diagnosis Note [id number] TANNER HERNANDEZ MD [facility] [address] [address] 02/05/2025 12:55:09 02/05/2025 14:02:27 Anxiety 27549180 F41.9 Citalopram 20 mg daily, Wellbutrin 150 mg SR daily - Stable. Continue current medication s without changes Essential hypertension 99881063 I10 Losartan 100 mg daily, metoprolol 25 mg XR daily Today's Plan:- Bloodwork ordered today- Stable. Continue current medication s without changes Mixed hyperlipidemia 267 846293 E78.2 Atorvastat in 80 mg daily -Lipid panel ordered today. Continue current medication s without changes Primary fi bromyalgia syndrome 10801775 M79.7 Follows with [facility] (Dr. Collin Bennett at [facility]). Takes gabapentin TID - Continue active management per [facility] Osteopenia 953034508 M85 .80 DEXA with osteopenia in 2023. Taking 4000 units VitD3 daily History of pulmonary embolus 224343931 Z86.711 Apixaban 5 mg BID-Diagno sed in Oct 2024. Has follow up with pulm in May 2025 to decide if Apixaban is needing to be continued - Stable. Continue current medication s without changes. F/U with pulm as scheduled Gastroesop hageal reflux disease without esophagitis 528612504 K21.9 Omeprazole 20 mg daily- Stable. Continue current medication s without changes History of Spinal surgery 858039590 Z98.890 -Kyphoplas ty done on Oct 17, 2024seen by pain medicine and given tylenol/co deine rx which she rarely uses. Vertigo 973792877 R42 -reportedl y had done vestibular rehab in the past which has helped. Not currently doing and using meclizine multiple times per week.Refer to ENT for considerat ion of vestibular rehab episodes Memory impairment 394128 006 R41.3 self reported. Difficult to assess given first visit. Will triage with bloodwork today Adult heal th examination 651350934 Z00.00 Baseline blood work ordered today. Requesting [...] Guarantor Name 02/05/2025 1 [place] Sarah Hansen [id number] Sarahjagruti Hansen 02/05/2025 2 [place] (MEDICARE SUPPLEMENT) Sarah Hansen [id number] Sarah Hansen Notes Date Note Type Note Provider Name and Address Organization Details Recorded Time 02/05/2025 text/html Sarah Hansen is a 79 year old female presenting to [facility]. Previous PCP was Dr. Santizo in [facility]. She saw him last earlier this year. [...] Social History:Work: retired, formerRNHome: [facility] with [facility]: former smoker, quit 50+ years agoAlcohol: occasionalIllicits: noneReligion: christianHobbies: plays piano, enjoys reading Annual Exam: due summer 2024 TANNER HERNANDEZ MD [address] [place], [address], [facility] 02/05/2025 15:35:22 OBGyn Episode No OBEpisode recorded.
--- OUTSIDE RECORDS SUMMARY | 2025-03-18 13:14 | XMS_ITS | Clinical Summary ---
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 Automatic Name Role Phone Jeancarlos Santizo MD Unavailable [phone] Social History Tobacco Use Types Packs/Day Years Used Date Smoking Tobacco: Never Assessed Interpersonal Safety Answer Date Record ed Family or friends hurt you Not on file 10/26 Family or friends insult you Not on file Family or friends threaten you Not on file 0 10/26/2023 Family or friends scream or curse at you Not on file 10/26/2023 Housing Stability Answer Date Recorded Living situation today Not on file Living situation problems Not on file 2023 Food Insecurity Answer Date Recorded Food run out past 12 months Not on file 10/08 Food did not last past 12 months Not on file 10/26/2023 Employment Answer Date Recorded Help finding and keeping a job Not on file 0 10/26/2023 Family and Community Support Answer Daryl e Recorded Help with Day to Day Activities Not on file 10/26/2023 Feeling Lonely or Isolated Not on file 10/26 Educational Attainment Answer Date Joe rded Speak language other than Ghanaian at home Not on file 10/26/2023 Want help with school or training Not on file 10/26/2023 Depression Answer Date Recorded PHQ-2 Risk Not on file 10/26/2023 Disabilities Answer Date Recorded Difficulty concentrating Not on file 024 Difficulty doing errands alone Not on file 0 10/26/2023 Substance Use Answer Date Recorded Used prescription meds for non-medical reasons N ot on file 10/26/2023 Used illegal drugs past 12 months Not on file 10/26/2023 Comments Unknown Sex and Gender Information Value Date Recorded Sex Assigned at Female 04/04/2022 6:22 PM CDT Legal Sex Female 6:22 PM CDT Gender Identity Female 04/04/2022 6:22 PM CDT Sexual Orientation Not on file Plan of Treatment Health Maintenance Due Date Last Done Comments DXA SCAN 1945 Depression Screening (12+) 1957 Tobacco Cessation Counseling and Screening (12+) 1957 Hepatitis C Screening 1963 Pneumococcal 50+ years (1 of 1 - PCV) 1995 Shingles Vaccine (Zoster) (1 of 2) 1995 Medicare Initial AWV G0438 08/09/2011 Respiratory Syncytial Virus (RSV) Adult or (1 - 1-dose 75+ series) 2020 COVID-19 VACCINE (2023-2 5 season) 2024 09/13/2022, 06/28/2022, 03/21/2022, Additional history exists Falls Risk Screening 10/08/2024 Influenza Vaccine (Season Ended) 2025 DTAP/TDAP/TD VACCINES (2 - T d or Tdap) 01/18/2033 01/18/2023 Insurance GENERIC COMMERCIAL MEDICARE PART A B Care Teams Nailing Machine Operator Automatic Relationship Specialty Start Date End Date Jeancarlos Santizo MD [address] [place] [address] Referring Physician General Internal Medicine 03/21/23
--- OUTSIDE RECORDS SUMMARY | 2025-03-18 13:14 | XMS_ITS | Continuity of Care Document ---
Author Organization [facility], INTERNAL MEDICINE [place] Address [address] [place] [phone] Care Team Providers Care Vp Securities Name Role Phone DREW HERNANDEZ Primary Care Provider Assessment Encounter Date Assessment Date Assessment LastModified by Organization Details LastModified Time 03/12/2025 03/12/2025 79 year old female with fibromyalgia, hypertension, hyperlipidemi a, GERD, history of PE, osteopenia, anxiety, chronic vertigo/dizzi ness, history of total hysterectomy, history of bilateral total knee replacement. Today, she presents for her Medicare wellness exam along with management of multiple chronic conditions [email or web address] Not available 03/12/2025 06:58:35 Plan of Treatment Reminders Order Date Submit Date Provider Last Modified By Organization Details Last Modified Time Details Appointments MAMMOGRA M 2024 10:35A M MAMMOGRAM Not available Not available Not available DERMATOL OGY VISIT 2024 09:30A M GABRIELLE BOCANEGRA MD Not available Not available Not available RECHECK 2024 11:30A M DREW HERNANDEZ MD Not available Not available Not available Lab None recorded . Referral None recorded . Procedures None recorded . Surgeries None recorded . Imaging MAMMO, screenin g, tomosynt zoë borja, w/ CAD 2024 025 [email or web address] [facility] Radiology [facility], [address] [place], [address], 03/12/2025 15:09:09 Medication Orders atorvast atin 80 mg tablet 2024 025 [facility], [address] [facility], [place], [address], 03/12/2025 14:51:19 omeprazo le 20 mg capsule, delayed release 2024 025 [facility], [address] [facility], [place], [address], 03/12/2025 14:51:21 losartan 100 mg tablet 2024 025 [facility], [address] [facility], [place], [address], 03/12/2025 14:51:21 metoprol ol succinat e ER 25 mg tablet,e xtended release 24 hr 2024 [facility], [address] [facility], [place], [address], 03/12/2025 14:51:23 citalopr am 20 mg tablet 2024 025 [facility], [address] [facility], [place], [address], 03/12/2025 14:51:23 bupropio n HCl 150 mg tablet,1 2 hr sustaine d-releas e(smokin g deterren t) 2024 025 [facility], [address] [facility], [place], [address], 03/12/2025 14:51:19 Patient TargetsNo targets recorded. Patient Instructions Encounter Date Encounter Id Patient Instructions Last Modified By Organization Details Last Modified Time 03/12/2025 [id number] Your Screening Plan: 1. Colon Cancer Screening: Not Indicated - Last completed Due 2. Cervical Cancer Screening: Not Indicated - Last completed Due 3. Breast Cancer Screening: Mammogram - Last completed 04/08/2024 Due INSERTTEXT 4. Lung Cancer Screening (Smokers only): Not Indicated - Last completed Due 5. Bone Density Screening: DEXA - Last completed 04/14/2024 Due INSERTTEXT 6 6. Hepatitis C Screening: Due Your Immunization Plan: 1. Hepatitis A - Needs 1st dose 2. Hepatitis B - Needs 1st dose 3. Tdap - Last completed 01/18/2023 Due 4. PCV20 - Due 5. Shingrix - Needs 1st dose 6. COVID-19 - Due 7. RSV - Completed 8. Influenza - Due [email or web address] Not available 03/11/2025 21:25:47 Follow-up in 6 months for hypertension recheck. Follow-up in 1 year for Medicare wellness exam [email or web address] Not available 03/12/2025 07:06:44 Reason for Referral None Reported. Results Created Date Observation Date Name Description Value Unit Range Abnormal Flag Note LastModifiedBy Organization Detail LastModifiedTime 02/26/2002/24/2025 audio gram No observ ation record ed. [email or web address] Not Available 02/2025 14:45:24 Result Notes None recorded. Problems Name Problem SNOMED Code Status Onset Date Resolution Date Notes Provider Name and Address Organization Details Recorded Time Essential hypertension 13793266 Active 2024 DREW HERNANDEZ MD [address] [place] [address], [phone], [facility] 07:01:53 Anxiety 22836807 Active 2024 DREW HERNANDEZ MD [address] [place] [address], [address] 1, [facility] 07:01:54 Mixed hyperlipidemia 701648281 Active 2024 DREW HERNANDEZ MD [address] [place] [address], [address] 1, [facility] 5 07:01:59 Primary fibromyalgia syndrome 51434747 Active 2024 DREW HERNANDEZ MD [address] [place] [address], [address] 1, [facility] 5 07:02:02 Osteopenia 568196461 Active 2024 DREW HERNANDEZ MD [address] [place] [address], [phone] 1, [facility] 07:02:04 History of pulmonary embolus 296461561 Active 2024 DREW HERNANDEZ MD [address] [place] [address], [address] 1, [facility] 13:32:02 Gastroesophage al reflux disease without esophagitis 963761508 Active 2024 DREW HERNANDEZ MD [address] [place] [address], [address] 1, [facility] 07:01:56 History of Spinal surgery 370029316 Active 2024 DREW HERNANDEZ MD [address] [place] [address], [address], [facility] 13:32:06 Memory impairment 921182579 Active 2024 DREW HERNANDEZ MD [address] [place] [address], [address] 1, [facility] 13:56:21 Adult health examination Active 2024 DREW HERNANDEZ MD [address] [place] [address], [address] 1, [facility] 13:56:23 Problem Notes None recorded. Procedures Surgical History Date Name Laterality Status Provider Name and Address Organization Details Recorded Time 02/25/20 25 Tympanogram completed TOMMY MYERS CCC-A [address] [place] [address], [phone], [facility] 02/24/2025 16:10:49 02/25/20 25 Audiogram completed TOMMY MYERS [facility]Elliot [address] [place] [address], [phone], [facility] 02/24/2025 16:10:46 02/25/20 25 Ana-Hallpike completed Ana Diggs [facility] 02/24/2025 15:55:23 02/25/20 25 Cerumen removal - Instruments, Bilateral completed Ana Caterina [facility] 02/24/2025 15:54:12 01/31/20 22 Destruction Premalignant Lesion(s) completed Eneida Mckeon [facility] 01/30/2022 09:09:33 01/31/20 22 Destruction BN Lesions completed Eneida Mckeon [facility] 01/30/2022 09:09:47 01/31/20 22 Shave Lesion; face, ear, eyelid, nose, lip, muc memb completed GABRIELLE BOCNAEGRA MD [address] [place], [address], [facility] 02/03/2022 07:57:17 02/01/20 21 Shave Lesion; trunk, arm, leg completed GABRIELLE BOCANEGRA MD [address] [place], [address], [facility] 02/03/2021 21:40:45 02/01/20 21 Destruction Premalignant Lesion(s) completed Silvina Hanna [facility] 01/31/2021 10:52:55 10/12/19 21 Destruction Premalignant Lesion(s) completed GABRIELLE BOCANEGRA MD [address] [place], [address], [facility] 10/12/2020 12:54:51 04/16/20 20 Suture/Staple removal completed Silvina Buttzville [facility] 04/16/2020 10:26:33 04/05/20 20 Excision MN Lesion; trunk, arm, leg completed Silvinajoanna Hanna [facility] 04/05/2020 17:05:37 03/23/20 20 Destruction MN Lesion; trunk, arm, leg completed GABRIELLE BOCANEGRA MD [address] [place], [address], [facility] 04/01/2020 22:53:39 03/23/20 20 Destruction Premalignant Lesion(s) completed Silvina Hanna [facility] 03/23/2020 11:35:49 01/22/20 18 Destruction Premalignant Lesion(s) completed Silvina Hanna [facility] 01/21/2018 10:55:47 Other completed Not Available [facility] 02/05/2025 12:55:10 Total Hysterectomy completed Not Available [employer] 02/05/2025 12:55:10 Back Surgery completed DREW HERNANDEZ MD [address] [place] [address] [place], [address], [facility] 02/05/2025 13:17:05 Cataract Surgery completed Not Available [facility] 02/05/2025 12:55:10 Cholecystectomy completed Not Available [facility] 02/05/2025 12:55:10 Flexible Sigmoidoscopy completed Not Available [facility] 02/05/2025 12:55:10 Hysterectomy completed Not Available [facility] 02/05/2025 12:55:10 Tonsillectomy completed Not Available [facility] 02/05/2025 12:55:10 total knee replacement completed DREW HERNANDEZ MD [address] [place] [address], [address], [facility] 02/05/2025 13:18:15 Joint Replacement completed Not Available [facility] 03/12/2025 13:49:12 Knee Surgery completed Not Available [facility] 03/12/2025 13:49:12 Imaging Results None recorded. Procedure Notes None recorded. Medical Equipment None Reported. Allergies Allergen ID Allergen Name Allergen Category Reaction Reaction Severity Criticality Documentation Date Start Date Code Code System Note Provider Name and Address Organization Details Recorded Time 692737 morphine sulfate medicatio n Not available Not available Not available 09/01/20162008 35496 RxNorm Comme nt: Creat ed By: Branden mcmillan;Cr eated Date: 2008 12:22 :34 PM; Not Available [facility] 6 03:16:33 827197 aspirin / caffeine / propoxyph katherine medicatio n Not available Not available Not available 09/01/20162008 69099 8 RxNorm Comme nt: Creat ed By: Branden mcmillan;Cr eated Date: 2008 12:22 :47 PM; Not Available [facility] 6 05:50:01 176124 thimerosa l medicatio n Not available Not available Not available 05/13/2024 79741 RxNorm Unabl e to get flu shot [facility] 4 09:48:49 Medications Name Sig Start Date Stop Date Status Note LastModified by Organization Details LastModified Time atorvasta tin 80 mg tablet Take 1 tablet every day by oral route. 2024 active Not Available Not Available Not Avpaige lable Celexa 10 mg tablet Daily 02/05 [...] 2020 active Not Available Not Available Not Ana diamond Kenalog 40 mg/mL suspensio n for injection [...] Not Avai lable Vitals Date Recorded Body height Body mass index (BMI) Body weight Heart rate Oxygen saturation Oxygen saturation in Arterial blood by Pulse oximetry Systolic blood pressure Diastolic blood pressure Provider Name and Address Organization Details Last Updated DateTime 149.86 cm 26 kg/m2 59349.6 2 g 62 /min 99 % 99 % 130 mm[Hg] 78 mm[Hg] Harris Shaw [facility] 14:27:13 Social History Question Answer Notes LastModified by Organizat ion Details LastModified Time Tobacco Smoking Status Former Smoker Not Available [employer] 02/05/2025 12:55:10 What Is Your Level Of Caffeine Consumption? Moderate [email or web address] Information not available 02/05/2025 When Did You Quit Smoking? 16+yearssince lastcigarette [email or web address] Information not available 02/05/2025 What Was The Date Of Your Most Recent Tobacco Screening? 03/12/2025 [email or web address] Information not available 03/12/2025 What Is Your [...] Carcinoma Y Reflux/GERD Y High Cholesterol Y Pulmonary Embolism Y Fibromyalgia Y Hypertension Y Osteoporosis Y Gynecological HistoryNo gynecological history recorded. Obstetrics History GPAL:G 0 P 0 0 0 0 Immunizations Vaccine Type Date Status Note Provider Nam e and Address Organization Details Recorded Time COVID-19, mRNA, LNP-S, PF, 30 mcg/0.3 mL dose 11/12/2020 completed Jefferina Page null, [facility] 02/05/2025 13:13:02 COVID-19, mRNA, LNP-S, PF, 30 mcg/0.3 mL dose 12/04/2020 completed Jefferina Page null, [facility] 02/05/2025 13:13:02 COVID-19, mRNA, LNP-S, PF, 30 mcg/0.3 mL dose 07/06/2021 completed Jefferina Page null, [facility] 02/05/2025 13:13:02 COVID-19, mRNA, LNP-S, PF, 30 mcg/0.3 mL dose, byron-sucrose 03/21/2022 completed Jefferina Page null, [facility] 02/05/2025 13:13:02 COVID-19, mRNA, LNP-S, PF, 30 mcg/0.3 mL dose, byron-sucrose 06/28/2022 completed Jefferina Page null, [facility] 02/05/2025 13:13:02 COVID-19, mRNA, LNP-S, bivalent, PF, 30 mcg/0.3 mL dose 09/13/2022 completed Jefferina Page null, [facility] 02/05/2025 13:13:02 RSV, recombinant, protein subunit RSVpreF, adjuvant reconstituted, 0.5 mL, PF 07/14/2023 completed Jefferina Page null, [facility] 02/05/2025 13:13:02 COVID-19, mRNA, LNP-S, PF, byron-sucrose, 30 mcg/0.3 mL 07/25/2023 completed Jefferina Page null, [facility] 02/05/2025 13:13:02 Tdap 01/18/2023 completed Jefferina Page null, [facility] 02/05/2025 13:13:02 COVID-19, mRNA, LNP-S, PF, byron-sucrose, 30 mcg/0.3 mL 06/13/2024 completed DREW HERNANDEZ MD [address] [place], [address], [facility] 03/12/2025 06:58:52 Past Encounters Encounter ID Performer Location Encounter Start Date Encounter Closed Date Diagnosis/Indication Diagnosis SNOMED-CT Code Diagnosis ICD10 Code Diagnosis Note [id number] ELKIN GREGORY MD [facility] [place] [id number] 1 02/24/2025 15:27:26 02/25/2025 13:30:12 Dizziness 283353159 R42 [place] testing negative. Audiogram reviewed and interprete d. Asymmetric snhl right > left. Very severe on the right with poor discrimina tion score. MRI head/IACs to r/o acoustic neuroma. If normal would set her up for vestibular rehab. F/u after MRI Impacted c erumen of bilateral ears 0326891619 936269 H61.23 Removed from each canal. Asymmetric al sensorineural hearing loss 607111126 H90.3 Right > left [id number] TOMMY MYERS, [place] [address] 02/24/2025 16:05:44 02/25/2025 04:20:18 Dizziness and giddiness 541230176 R42 Ear pressu re sensation 844856943 H93.8X3 Sensorineu ral hearing loss of bilateral ears 364209714 H90.3 [id number] DREW HERNANDEZ MD [facility] [place] [id number] 03/12/2025 13:49:10 03/12/2025 15:01:12 Adult health examination 453756926 Z00.00 Healthcare Maintenanc e: Vaccines/S creenings: Flu- due fall ovid- initial series in 2020. Most recent booster: fall 4RSV- UTDPneumon ia- UTDTetanus - UTD, due 2032Shingl es- UTD (x2 per patient)HB V- Mammogram: Aged out of required screening windowDEXA : April 14, 2024: Osteopenia . Repeat in 2 yearsColon Ca: Aged out of required screening windowCerv ical Ca: Aged out of required screening windowLung Ca: N/A, quit >15 years agoHCV: Discussed with patient. Will test with next routine bloodwork Screening mammography 24 113934 Z12.31 Last mammogram 04/08/2024 , BI-RADS category 1, Negative.T here is no evidence of malignancy . Screening mammograms arerecomme nded in one year. Screening for malignant neoplasm of colon 146790192 Z12.11 No previous colonoscop y in patients chart, in view of patients age further screening is not indicated. Menopausal and postmenopausal disorders 245364648 N95.8 Last DEXA 04/14/2024 , patient has osteopenia , recommende d to repeat in 2 years. Hepatitis C screening 41 4619354 Z11.59 Has patient ever had Hep C screening? YES NO NO record in chart. Active immunization 3387 9002 Z23 Has patient had Hep B vaccine? YES NO NO record in chart.Prev nar20- UTD per patientTda p- 01/18/2023 Shingles- UTD per [email or web address] 01/2025 flu- No record in chart. Eye disord er screening 047058841 Z13.5 Has patient ever had eye/glauco ma screening? YES NO NO record in chart. Ex-smoker 4084534 Z87.89 1 Former smoker. No previous CT chest lung nodule screening in patients chart. Essential hypertension 37409615 I10 Losartan 100 mg daily, metoprolol 25 mg XR daily. Labs done February 2025 Today's Plan:- Stable/wel l controlled . Continue without changes. Recommende d home BP readings given dizziness as below Gastroesop hageal reflux disease without esophagitis 605116261 K21.9 Omeprazole 20 mg daily - Stable. Continue current medication s without changes Mixed hyperlipidemia 267 084837 E78.2 Atorvastat in 80 mg daily. Lipid panel well-contr olled in February 2025 (LDL 63) - Stable. Continue without changes Anxiety 17227493 F41.9 Citalopram 20 mg daily, Wellbutrin 150 mg SR daily - Stable. Continue current medication s without changes Osteopenia 904456775 M85 .80 DEXA with osteopenia in 2023. Taking 4000 units VitD3 daily. - Repeat DEXA in 2 years (April 2026) Primary fi bromyalgia syndrome 99296547 M79.7 Follows with antonia molina (Dr. Collin [facility] at [facility] Takes gabapentin TID - Continue active management per antonia molina Dizziness 829088747 R42 -reportedl y had done vestibular rehab in the past which has helped. Not currently doing and using meclizine multiple times per week. States she takes BP at home and it is occasional ly elevated. I had referred to ENT for considerat ion of vestibular rehab episodes. Home BP readings recommende d for 1 week to check and see if this is related. Continue with MRI head as scheduled Health Concerns Section Related Observation LastModified by Organization Detai ls LastModified Time None Recorded Concern Status LastModified by Organization Details LastModified Time None Recorded Payers Encounter Date Sequence Insurance Name Policy Number Policy Vaughn Covered Member ID Vaughn Member ID Guarantor Name 03/12/2025 1 [employer] (MEDICARE) Sarah Hansen [id number] Sarah Marinkaitlyn 03/12/2025 2 [employer] (MEDICARE SUPPLEMENT) Sarah Hansen [id number] Sarah Hansen Notes Date Note Type Note Provider Name and Address Organization Details Recorded Time 03/12/2025 text/html Sarah Hansen is a 79 year old female with fibromyalgia, hypertension, hyperlipidemia, GERD, history of PE, osteopenia, anxiety, chronic vertigo/dizziness, history of total hysterectomy, history of bilateral total knee replacement. Today, she presents for her Medicare wellness exam along with management of multiple chronic conditions Her main concern is related to balance issues. She has been taking meclizine intermittently for years. She feels dizziness is worse when weather changes. Currently taking 4x weekly. Moving her head too quickly precipitates this but most symptoms are more lightheadedness/balanc e issues than true vertigo. She feels symptoms above and weakness are much worse since her hospitalization in Oct 2024. She is still undergoing PT twice weekly to help with strength and balance. Her other main concern is related to memory impairment. She has a fam hx of dementia and feels trouble with forgetting words. Today, she continues to endorse concerns with her balance. She was seen by ENT and has her MRI scheduled now to rule out accoustic neuroma. PT is scheduled to run for 1 week. Social History:Work: retired, former [employer]: [place] [facility] [place] [facility] former smoker, quit 50+ years agoAlcohol: occasionalIllicits: noneReligion: christianHobbies: plays piano, enjoys reading.Does a viking cruise in the fall Medicare wellness exam: March 2025 M AWV Abnormal responsesDo you feel fatigued? Yes Do you suffer from acute/chronic pain? Yes Is your blood pressure ever high? Yes Is your cholesterol high? Yes Do you have diabetes or high blood sugar? Yes Do you have any issues with urine leakage or bladder control? Yes Does your home have grab bars in bathrooms? No Are you able to walk without assistive devices? No Do you have trouble hearing the TV when others do not? Yes Do you have hearing aids? Yes Do you have Advance Directives already executed? NoMedicare Annual Wellness VisitPsychosocial Assessment Do you feel lonely or socially isolated most of the time? - No Do you feel angry most of the time? - No Is stress a problem for you? - No Do you feel fatigued? - Yes Psychosocial Assessment (2) In general, how satisfied are you with your life? - Very Pain Assessment Do you suffer from acute/chronic pain? - Yes Are you currently taking any form of pain medication? Yes If so, please list Tylenol How long have you been taking this medication? Only occasionally Does the medication relieve your symptoms? Yes Have you tried any methods for pain relief that didn't involve medication? Yes If so, please list (1) PT. Massage therapy Self-Health Assessment How do you describe your overall health? - Fair How do you describe your overall physical functioning? - Fair Self-Health Assessment (1) Is your blood pressure ever high? - Yes Is your cholesterol high? - Yes Do you have diabetes or high blood pressure? - Yes Do you have any issues with urine leakage or bladder control? - Yes Do you routinely exercise? Yes If so, how many days per week? 6 For how long each day? Approx 1 hour What type(s) of exercise do you do? Strength and balance Are you sexually active? No Have you recently had any loss in appetite? No Do you eat three meals a day? Yes How often do you brush your teeth? Twice daily How often do you floss your teeth? Several times a week Do you have dentures? No Motor Vehicle Safety Do you always fasten your seat belt when you are in the car? - Yes Do you ever drive after drinking alcohol or ride with a tractor trailer truck driver who has been drinking? - No Home Safety Does your home have a slippery tub or shower? - No Does your home have throw rugs? - No Does your home have grab bars in bathrooms? - No Does your home have a functioning smoke alarm? - Yes Does your home have handrails on stairs and steps? - Yes Do you live alone? No Do you need help with any of the following Dressing? - No Using the restroom? - No Preparing meals? - No Transportation or Shopping? - No Managing your finances? - No Doing laundry or housekeeping? - No Activities of daily living Are you able to walk without assistive devices? - No Are you able to use a phone without assistance? - Yes Are you able to manage your medications without assistance? - Yes Hearing loss screen Do you have trouble hearing the TV when others do not? - Yes Do you have to strain to hear/understand conversations? - No Do you have hearing aids? - Yes Advanced Care Planning (Living Will etc.) Do you have Advance Directives already executed? - No Would you like to discuss with your provider today? - No Cognitive Impairment Have you experienced any memory issues or problems thinking? - No Have you any concerns about your memory brought up by family members, friends, or caretakers? - No Imported from [employer] on 03/12/2025 DREW HERNANDEZ MD [address] [place] [address], [phone], [place] [facility] 03/12/2025 14:57:59 OBGyn Episode No OBEpisode recorded.
--- OUTSIDE RECORDS SUMMARY | 2025-03-18 13:14 | XMS_ITS | Data Portability ---
Author Organization [facility] Sandoval MINDENMIN[facility] CLOSED Address [address] [facility] [address] [place] [address] Care Team Providers Care Ski Maker Name Role Phone TANNER HERNANDEZ Primary Care Provider Assessment Encounter Date Assessment Date Assessment LastModified by Organization Details LastModified Time 05/13/2024 05/13/2024 Follow up annually [email or web address] Not available 05/13/2024 10:10:14 02/05/2025 02/05/2025 79 year old female with fibromyalgia, HTN, HLD, GERD, history of PE, osteopenia, anxiety here to establish care with PCP. [email or web address] Not available 02/05/2025 15:34:25 03/12/2025 03/12/2025 79 year old female with fibromyalgia, hypertension, hyperlipidemi a, GERD, history of PE, osteopenia, anxiety, chronic vertigo/dizzi ness, history of total hysterectomy, history of bilateral total knee replacement. Today, she presents for her Medicare wellness exam along with management of multiple chronic conditions [email or web address] Not available 03/12/2025 06:58:35 Plan of Treatment [...] + folate, serum or blood 2024 025 [facility], [address] [place] [address], [address], 02/05/2025 16:14:15 lipid panel, serum 2024 025 [facility], [address] [place] [address], [address], 02/05/2025 16:09:39 CBC w/ auto diff 2024 025 [facility], [address] [place] [address], [address], 02/05/2025 15:53:04 CMP, serum or plasma 2024 025 [facility], [address] [place] [address], [address], 02/05/2025 16:09:41 glycohem oglobin, total, blood 2024 025 [facility], [address] [place] [address], [address], 02/05/2025 16:04:00 urinalys is, complete 2024 025 [facility], [address] [place] [address], [address], 02/05/2025 17:29:22 TSH, serum, reflex free T4 2024 025 [facility], [address] [place] [address], [address], 02/05/2025 16:05:22 Referral otolaryn gologist referral 2024 025 [email or web address] Elkin Gregory MD, [address] [place] [address], [phone], 02/05/2025 14:08:53 Procedures None recorded . Surgeries None recorded . Imaging MAMMO, screenin g, tomosynt hesis, bilatera l, w/ CAD 06/04/ 2025 06/05/2 [email or web address] [facility], [address] [facility], [place], [address], 03/12/2025 15:09:09 Medication Orders atorvast atin 80 mg tablet 2024 025 [facility], [address] [facility], [place], [address], 03/12/2025 14:51:19 omeprazo le 20 mg capsule, delayed release 2024 025 [facility], [address] [facility], [place], [address], 03/12/2025 14:51:21 losartan 100 mg tablet 2024 025 [facility], [address] [facility], [place], [address], 03/12/2025 14:51:21 metoprol ol succinat e ER 25 mg tablet,e xtended release 24 hr 2024 025 [facility], [address] [facility], [place], [address], 03/12/2025 14:51:23 citalopr am 20 mg tablet 2024 025 [facility], [address] [facility], [place], [address], 03/12/2025 14:51:23 bupropio n HCl 150 mg tablet,1 2 hr sustaine d-releas e(smokin g deterren t) 2024 025 [facility], [address] [facility], [place], [address], 03/12/2025 14:51:19 triamcin olone acetonid e 0.025 % topical cream 2023 024 [email or web address] [id number], [address] [address] [place], [id number], 05/13/2024 13:18:40 Patient TargetsNo targets recorded. Patient Instructions Encounter Date Encounter Id Patient Instructions Last Modified By Organization Details Last Modified Time 05/13/2024 [id number] Education: We discussed the potential diagnostic options, options for further evaluation and treatments, and the risks and benefits of each. [email or web address] Not available 05/13/2024 07:58:17 02/05/2025 [id number] Follow up in 1 month for recheck (possible medicare wellness exam). Will take over rx at this time [email or web address] Not available 02/05/2025 13:55:54 03/12/2025 [id number] Your Screening Plan: 1. Colon Cancer Screening: Not Indicated - Last completed Due 2. Cervical Cancer Screening: Not Indicated - Last completed Due 3. Breast Cancer Screening: Mammogram - Last completed 04/08/2024 Due INSERTTEXT 5 4. Lung Cancer Screening (Smokers only): Not [...] in 1 year for Medicare wellness exam Not available 03/12/2025 07:06:44 Reason for Referral Arcade Technician Referral fo r Vertigo Referring Physician: Tanner Hernandez, Internal Medicine, Encounter Date: 02/05/2025 Results Created Date Observation Date Name Description Value Unit Range Abnormal Flag Note LastModifiedBy Organization Detail LastModifiedTime 02/06/20 25 02/05/2025 COMPL ETE BLOOD COUNT white blood cells 8.2 10*3/ uL 3.8-10 .8 normal Not Available [facility] [address] [place] [address], [address], 02/05/2025 15:53:04 02/06/20 25 02/05/2025 COMPL ETE BLOOD COUNT red blood cells 4.50 10*6/ uL 3.80-5 .20 normal Not Available [facility] [address] [place] [address], [address], 02/05/2025 15:53:04 02/06/20 25 02/05/2025 COMPL ETE BLOOD COUNT hemoglobin 13.2 g/dL 12.0-1 6.0 normal Not Available [facility] [address] [place] [address], [address], 02/05/2025 15:53:04 02/06/20 25 02/05/2025 COMPL ETE BLOOD COUNT hematocrit 37.4 % 35.0-4 7.0 normal Not Available [facility] [address] [place] [address], [address], 02/05/2025 15:53:04 02/06/20 25 02/05/2025 COMPL ETE BLOOD COUNT MCV 83 fL 80-100 normal Not Available [facility] [address] [place] [address], [address], 02/05/2025 15:53:04 02/06/20 25 02/05/2025 COMPL ETE BLOOD COUNT MCH 29 pg 26-35 normal Not Available [facility] [address] [place] [address], [address], 02/05/2025 15:53:04 02/06/20 25 02/05/2025 COMPL ETE BLOOD COUNT MCHC 35 g/dL 32-36 normal Not Available [facility] [address] [place] [address], [address], 02/05/2025 15:53:04 02/06/20 25 02/05/2025 COMPL ETE BLOOD COUNT RDW 13.9 % 11.0-1 5.0 normal Not Available [facility] [address] [place] [address], [address], 02/05/2025 15:53:04 02/06/20 25 02/05/2025 COMPL ETE BLOOD COUNT MPV 8.5 fL 6.2-10 .5 normal Not Available [facility] [address] [place] [address], [address], 02/05/2025 15:53:04 02/06/20 25 02/05/2025 COMPL ETE BLOOD COUNT platelet count 237 10*3/ uL 150-40 0 normal Not Available [facility] [address] [place] [address], [address], 02/05/2025 15:53:04 02/06/20 25 02/05/2025 COMPL ETE BLOOD COUNT neutrophil,a bsolute 4.0 10*3/ uL 1.6-8. 4 normal Not Available [facility] [address] [place] [address], [address], 02/05/2025 15:53:04 02/06/20 25 02/05/2025 COMPL ETE BLOOD COUNT lymphocyte,a bsolute 2.9 10*3/ uL 0.4-5. 1 normal Not Available [facility] [address] [place] [address], [address], 02/05/2025 15:53:04 02/06/20 25 02/05/2025 COMPL ETE BLOOD COUNT monocyte,abs olute 1.0 10*3/ uL 0.0-1. 2 normal Not Available [facility] [address] [place] [address], [address], 02/05/2025 15:53:04 02/06/20 25 02/05/2025 COMPL ETE BLOOD COUNT eosinophil,a bsolute 0.2 10*3/ uL 0.0-0. 8 normal Not Available [facility] [address] [place] [address], [address], 02/05/2025 15:53:04 02/06/20 25 02/05/2025 COMPL ETE BLOOD COUNT basophil,abs olute 0.1 10*3/ uL 0.0-0. 3 normal Not Available [facility] [address] [place] [address], [address], 02/05/2025 15:53:04 02/06/20 25 02/05/2025 COMPL ETE BLOOD COUNT % neutrophils 48.4 % 42.0-7 8.0 normal Not Available [facility] [address] [place] [address], [address], 02/05/2025 15:53:04 02/06/20 25 02/05/2025 COMPL ETE BLOOD COUNT % lymphocytes 35.8 % 11.0-4 7.0 normal Not Available [facility] [address] [place] [address], [address], 02/05/2025 15:53:04 02/06/20 25 02/05/2025 COMPL ETE BLOOD COUNT % monocytes 12.5 % 0.0-11 .0 high Not Available [facility] [address] [place] [address], [address], 02/05/2025 15:53:04 02/06/20 25 02/05/2025 COMPL ETE BLOOD COUNT % eosinophils 2.5 % 0.0-7. 0 normal Not Available [facility] [address] [place] [address], [address], 02/05/2025 15:53:04 02/06/20 25 02/05/2025 COMPL ETE BLOOD COUNT % basophils 0.8 % 0.0-3. 0 normal Not Available [facility] [address] [place] [address], [address], 02/05/2025 15:53:04 02/06/20 25 02/05/2025 COMPL ETE BLOOD COUNT nucleated red cells 0.0 % 0.0-0. 9 normal Not Available [facility] [address] [place], [address], 02/05/2025 15:53:04 02/06/20 25 02/05/2025 COMPL ETE BLOOD COUNT nucleated RBCs, absolute 0.00 10*3/ uL not estab. normal Not Available [facility] [address] [place] [address], [address], 02/05/2025 15:53:04 02/06/20 25 02/05/2025 GLYCO HEMOG LOBIN A1C glyco HGB A1C 5.6 % 0.0-5. 6 normal Not Available [facility] [address] [place] [address], [address], 02/05/2025 16:04:00 02/06/20 25 02/05/2025 GLYCO HEMOG LOBIN A1C estimated avg. glucose 114 mg/dL _(wiliam c) normal A1c value s betwe en 5.7% to 6.4% indic ate predi abete s. Resul ts 6.5% or great er is diagn ostic of diabe rose. Ameri can Diabe rose Assoc iatio n (diab etes. org) Not Available [facility] [address] [place] [address], [address], 02/05/2025 16:04:00 02/06/20 25 02/05/2025 TSH WITH REFLE X FT4 TSH with reflex FT4 1.500 u[IU] /mL 0.270- 4.200 normal Not Available [facility] [address] [place], [address], 02/05/2025 16:05:22 02/06/20 25 02/05/2025 LIPID PROFI LE HDL cholesterol 50 mg/dL 50-242 normal Not Available [facility] [address] [place] [address], [address], 02/05/2025 16:09:39 02/06/20 25 02/05/2025 LIPID PROFI LE triglyceride s 117 mg/dL 0-149 normal TRIGL YCERI DE RANGE S DORINDA L: < 150 BORDE RLINE HIGH: 150 - 199 HIGH: 200 - 499 VERY HIGH: > OR = 500 Not Available [facility] [address] [place] [address], [address], 02/05/2025 16:09:39 02/06/20 25 02/05/2025 LIPID PROFI LE cholesterol 136 mg/dL 0-199 normal RHONDA STERO L (TOTA L) RANGE S BRITTANY ABLE: < 200 BORDE RLINE : 200 - 239 HIGHE R RISK: > 239 Not Available [facility] [address] [place] [address], [address], 02/05/2025 16:09:39 02/06/20 25 02/05/2025 LIPID PROFI LE LDL cholesterol 63 mg/dL _(wiliam c) 0-99 normal LDL RHONDA STERO L RANGE S OPTIM AL: < 100 NEAR/ ABOVE OPTIM AL: 100 - 129 BORDE RLINE HIGH: 130 - 159 HIGH: 160 - 189 VERY HIGH: > OR = 190 Not Available [facility] [address] [place] [address], [address], 02/05/2025 16:09:39 02/06/20 25 02/05/2025 LIPID PROFI LE chol/HDL ratio (calc) 2.7 mg/dL normal NO DORINDA L RANGE ESTAB LISHE D FOR RHONDA STERO L/HDL RATIO (CALC ULATE D). Not Available [facility] [address] [place] [address], [address], 02/05/2025 16:09:39 02/06/20 25 02/05/2025 COMP. METAB OLIC PANEL glucose 108 mg/dL 74-100 high Not Available [facility] [address] [place] [address], [address], 02/05/2025 16:09:41 02/06/20 25 02/05/2025 COMP. METAB OLIC PANEL blood urea nitrogen 12 mg/dL 6-20 normal Not Available [facility] [address] [place] [address], [address], 02/05/2025 16:09:41 02/06/20 25 02/05/2025 COMP. METAB OLIC PANEL creatinine 0.58 mg/dL 0.50-0 .95 normal Not Available [facility] [address] [place] [address], [address], 02/05/2025 16:09:41 02/06/20 25 02/05/2025 COMP. METAB OLIC PANEL BUN/creatini ne ratio 21 (calc ) 10-20 high Not Available [facility] [address] [place] [address], [address], 02/05/2025 16:09:41 02/06/20 25 02/05/2025 COMP. METAB OLIC PANEL sodium 141 mmol/ L 136-14 5 normal Not Available [facility] [address] [place] [address], [address], 02/05/2025 16:09:41 02/06/20 25 02/05/2025 COMP. METAB OLIC PANEL potassium 4.0 mmol/ L 3.4-5. 0 normal Not Available [facility] [address] [place] [address], [address], 02/05/2025 16:09:41 02/06/20 25 02/05/2025 COMP. METAB OLIC PANEL chloride 104 mmol/ L 98-107 normal Not Available [facility] [address] [place] [address], [address], 02/05/2025 16:09:41 02/06/20 25 02/05/2025 COMP. METAB OLIC PANEL carbon dioxide 24 mmol/ L 22-31 normal Not Available [facility] [address] [place] [address], [address], 02/05/2025 16:09:41 02/06/20 25 02/05/2025 COMP. METAB OLIC PANEL anion gap 13 (calc ) 7-25 normal Not Available [facility] [address] [place] [address], [address], 02/05/2025 16:09:41 02/06/20 25 02/05/2025 COMP. METAB OLIC PANEL calcium 9.4 mg/dL 8.6-10 .2 normal Not Available [facility] [address] [place] [address], [address], 02/05/2025 16:09:41 02/06/20 25 02/05/2025 COMP. METAB OLIC PANEL total protein 7.1 g/dL 6.4-8. 3 normal Not Available [facility] [address] [place] [address], [address], 02/05/2025 16:09:41 02/06/20 25 02/05/2025 COMP. METAB OLIC PANEL albumin 4.1 g/dL 3.5-5. 2 normal Not Available [facility] [address] [place] [address], [address], 02/05/2025 16:09:41 02/06/20 25 02/05/2025 COMP. METAB OLIC PANEL globulin 3.0 1.5-4. 5 normal Not Available [facility] [address] [place] [address], [address], 02/05/2025 16:09:41 02/06/20 25 02/05/2025 COMP. METAB OLIC PANEL albumin/glob ulin ratio 1.4 (calc ) 1.1-2. 5 normal Not Available [facility] [address] [place] [address], [address], 02/05/2025 16:09:41 02/06/20 25 02/05/2025 COMP. METAB OLIC PANEL bilirubin, total 0.7 mg/dL 0.1-1. 2 normal Not Available [facility] [address] [place] [address], [address], 02/05/2025 16:09:41 02/06/20 25 02/05/2025 COMP. METAB OLIC PANEL alkaline phosphatase 114 U/L 30-121 normal Not Available [facility] [address] [place] [address], [address], 02/05/2025 16:09:41 02/06/20 25 02/05/2025 COMP. METAB OLIC PANEL AST 26 U/L 0-32 normal Not Available [facility] [address] [place] [address], [address], 02/05/2025 16:09:41 02/06/20 25 02/05/2025 COMP. METAB OLIC PANEL ALT 23 U/L 0-33 normal Not Available [facility] [address] [place], [address], 02/05/2025 16:09:41 02/06/20 25 02/05/2025 COMP. METAB OLIC PANEL GFR 92 >= 60 normal NOT E New calcu latio n for GFR (CKD- EPI 2020) is formu lated witho ut race adjus tment facto rs at the recom menda tion of the Maliha Lopez y [facility] [place] and Dayana Escobar ty of Nephr ology . This calcu latio n has not been valid ated in pregn ant women . For pedia tric patie nts refer to https ://rafa malagon.erika terry.o rg/pr bradford delgadillo s/KDO QI/gf r_cal culat orPed Not Available [facility] [address] [place], [address], 02/05/2025 16:09:41 02/06/20 25 02/05/2025 B12/F OLIC ACID PANEL folic acid 13.4 NG/mL 4.6-34 .8 normal Not Available [facility] [address] [place], [address], 02/05/2025 16:14:15 02/06/20 25 02/05/2025 B12/F OLIC ACID PANEL vitamin B12 946 pg/mL 232-12 45 normal Not Available [facility] [address] [place] [address], [address], 02/05/2025 16:14:15 02/06/20 25 02/05/2025 URINA LYSIS color YELLOW normal Not Available [facility] [address] [place] [address], [address], 02/05/2025 17:29:22 02/06/20 25 02/05/2025 URINA LYSIS appearance CLEAR normal Not Available [facility] [address] [place] [address], [address], 02/05/2025 17:29:22 02/06/20 25 02/05/2025 URINA LYSIS glucose NORMAL mg/dL normal normal Not Available [facility] [address] [place] [address], [address], 02/05/2025 17:29:22 02/06/20 25 02/05/2025 URINA LYSIS bilirubin NEGATI VE mg/dL negati ve normal Not Available [facility] [address] [place] [address], [address], 02/05/2025 17:29:22 02/06/20 25 02/05/2025 URINA LYSIS ketone NEGATI VE mg/dL negati ve normal Not Available [facility] [address] [place] [address], [address], 02/05/2025 17:29:22 02/06/20 25 02/05/2025 URINA LYSIS specific gravity 1.015 1.003- 1.035 normal Not Available [facility] [address] [place] [address], [address], 02/05/2025 17:29:22 02/06/20 25 02/05/2025 URINA LYSIS blood 25 /uL negati ve abnormal Not Available [facility] [address] [place] [address], [address], 02/05/2025 17:29:22 02/06/20 25 02/05/2025 URINA LYSIS pH 6 5.0 - 8.0 normal Not Available [facility] [address] [place] [address], [address], 02/05/2025 17:29:22 02/06/20 25 02/05/2025 URINA LYSIS protein 15 mg/dL negati ve abnormal Not Available [facility] [address] [place] [address], [address], 02/05/2025 17:29:22 02/06/20 25 02/05/2025 URINA LYSIS urobilinogen NORMAL mg/dL normal normal Not Available [facility] [address] [place] [address], [address], 02/05/2025 17:29:22 02/06/20 25 02/05/2025 URINA LYSIS nitrite NEGATI VE negati ve normal Not Available [facility] [address] [place] [address], [address], 02/05/2025 17:29:22 02/06/20 25 02/05/2025 URINA LYSIS leukocyte esterase 100 /uL negati ve abnormal Pleas e advis e if cultu re is brittany ed - notif y the lab at [phone]. Not Available [facility] [address] [place] [address], [address], 02/05/2025 17:29:22 02/06/20 25 02/05/2025 URINA LYSIS WBC, urine TNTC 0-5/hp f abnormal Occ. WBC clump s noted . Not Available [facility] [address] [place] [address], [address], 02/05/2025 17:29:22 02/06/20 25 02/05/2025 URINA LYSIS squamous epi. cells 0-5 0-5/hp f normal Not Available [facility] [address] [place] [address], [address], 02/05/2025 17:29:22 04/15/20 24 04/08/2024 MAMMO , scree jyajay, tomos ynthe sis, bilat eral, w/ CAD Gavi nich[place] [address] [place] [address] Eduin lee Name: AYSHA lee : 1944 [...] s were mailed or given to the eduin lee. Interp reted By: Wayne Frederick MD Electr onical ly Signed By: Wayne Frederick MD on 04/15/20 24 1:30 PM [email or web address] [facility] [address] , [place], [address], 04/15/2024 13:43:14 02/26/20 25 02/24/2025 audio gram No observ ation record ed. [email or web address] Not Available 02/2025 14:45:24 Result Notes None recorded. Problems Name Problem SNOMED Code Status Onset Date Resolution Date Notes Provider Name and Address Organization Details Recorded Time Essential hypertension 81731098 Active 2024 TANNER HERNANDEZ MD [address] [place] [address], [address], [facility] 07:01:53 Anxiety 03875877 Active 2024 TANNER HERNANDEZ MD [address] [place] [address], [address], [facility] 07:01:54 Mixed hyperlipidemia 005021195 Active 2024 TANNER HERNANDEZ MD [address] [place] [address], [address], [facility] 07:01:59 Primary fibromyalgia syndrome 66850871 Active 2024 TANNER HERNANDEZ MD [address] [place] [address], [address], [facility] 07:02:02 Osteopenia 366714688 Active 2024 TANNER HERNANDEZ MD [address] [place] [address], [address], [facility] 07:02:04 History of pulmonary embolus 932370138 Active 2024 TANNER HERNANDEZ MD [address] [address], [address], [facility] 13:32:02 Gastroesophage al reflux disease without esophagitis 763003001 Active 2024 TANNER HERNANDEZ MD [address] [place] [address] [place], [address], [facility] 5 07:01:56 History of Spinal surgery 276471901 Active 2024 TANNER HERNANDEZ MD [address] [place] [address], [address], [facility] 13:32:06 Memory impairment 491649674 Active 2024 TANNER HERNANDEZ MD [address] [place] [address], [address], [facility] 13:56:21 Adult health examination Active 2024 TANNER HERNANDEZ MD [address] [place] [address], [address], [facility] 13:56:23 Problem Notes Documentation Provider Name and Address Organization Details Recorded Time Arcade Technician Consult Not e : [facility] [address] [place] [id number] Francisco (id #[id number], : 1945) [facility] [address] [place] [phone] Date: 02/24/2025RE: Sarah Hansen, : 1945, PT ID #[id number] Hernandez MD, I would like to thank you for referring Sarah Tyrone to our practice for consultation and evaluation. I have enclosed a copy of the office evaluation for your records. Sincerely, Electronically Signed by: ELKIN GREGORY MDEncounter Reason/DateNone recorded 02/24/2025 - 03:00PM - ENT SB History of Present IllnessRef: [facility]: DizzinessTiming: Years, worsened over the past [...] be normal. The patient tolerated the procedure well.Ana-Hallpike:[place]-Hallpike Maneuvers Head Right: negative Head Left: negative [...] hearing loss, bilateral Return to Office TANNER HERNANDEZ MD for MEDICARE WELLNESS VISIT at [facility] on 03/12/2025 at 02:30 PM GABRIELLE BOCANEGRA MD for DERMATOLOGY VISIT at DERMATOLOGY [facility] on 05/12/2025 at 09:30 AM TANNER HERNANDEZ MD [address] [place], [address], [facility] 03/12/2025 14:45:25 Procedures Surgical History Date Name Laterality Status Provider Name and Address Organization Details Recorded Time 02/25/20 25 Tympanogram completed TOMMY MYERS, CCC-A [address] [place] [address], [phone], [facility] 02/24/2025 16:10:49 02/25/20 25 Audiogram completed TOMMY MYERS, CCC-A [address] [place], [address], [facility] 02/24/2025 16:10:46 02/25/20 25 [place] [facility] 02/24/2025 15:55:23 02/25/20 25 Cerumen removal - Instruments, Bilateral [facility] 02/24/2025 15:54:12 01/31/20 22 Destruction Premalignant Lesion(s) completed Eneida Mckeon [facility] 01/30/2022 09:09:33 01/31/20 22 Destruction BN Lesions completed Eneida Mckeon [facility] 01/30/2022 09:09:47 01/31/20 22 Shave Lesion; face, ear, eyelid, nose, lip, muc memb completed GABRIELLE BOCANEGRA MD [address] [place], [address], [facility] 02/03/2022 07:57:17 02/01/20 21 Shave Lesion; trunk, arm, leg completed GABRIELLE BOCANEGRA MD [address] [place], [address], [facility] 02/03/2021 21:40:45 02/01/20 21 Destruction Premalignant Lesion(s) completed [facility] 01/31/2021 10:52:55 10/12/19 21 Destruction Premalignant Lesion(s) completed GABRIELLE BOCANEGRA MD [address] [place], [address], [facility] 10/12/2020 12:54:51 04/16/20 20 Suture/Staple removal completed [facility] 04/16/2020 10:26:33 04/05/20 20 Excision MN Lesion; trunk, arm, leg completed [facility] 04/05/2020 17:05:37 03/23/20 20 Destruction MN Lesion; trunk, arm, leg completed GABRIELLE BOCANEGRA MD [address] [place], [address], [facility] 04/01/2020 22:53:39 03/23/20 20 Destruction Premalignant Lesion(s) completed [facility] 03/23/2020 11:35:49 01/22/20 18 Destruction Premalignant Lesion(s) completed [facility] 01/21/2018 10:55:47 Other completed Not Available [facility] 02/05/2025 12:55:10 Total Hysterectomy completed Not Available [facility] 02/05/2025 12:55:10 Back Surgery completed TANNER HERNANDEZ MD [address] [place], [address], [facility] 02/05/2025 13:17:05 Cataract Surgery completed Not Available [facility] 02/05/2025 12:55:10 Cholecystectomy completed Not Available [facility] 02/05/2025 12:55:10 Flexible Sigmoidoscopy completed Not Available [facility] 02/05/2025 12:55:10 Hysterectomy completed Not Available [facility] 02/05/2025 12:55:10 Tonsillectomy completed Not Available [facility] 02/05/2025 12:55:10 total knee replacement completed TANNER HERNANDEZ MD [address] [place], [address], [facility] 02/05/2025 13:18:15 Joint Replacement completed Not Available [facility] 03/12/2025 13:49:12 Knee Surgery completed Not Available [facility] 03/12/2025 13:49:12 Imaging Results None recorded. Procedure Notes None recorded. Medical Equipment None Reported. Allergies Allergen ID Allergen Name Allergen Category Reaction Reaction Severity Criticality Documentation Date Start Date Code Code System Note Provider Name and Address Organization Details Recorded Time 453453 morphine sulfate medicatio n Not available Not available Not available 09/01/20162008 20624 RxNorm Comme nt: Creat ed By: Branden dos santosCr eated Date: 2008 12:22 :34 PM; Not Available [facility]ly [facility], [facility] 6 03:16:33 238891 aspirin / caffeine / propoxyph katherine medicatio n Not available Not available Not available 09/01/20162008 38363 8 RxNorm Comme nt: Creat ed By: Branden mcmillan;Cr eated Date: 2008 12:22 :47 PM; Not Available [facility] 6 05:50:01 [id number] thimerosa l medicatio n Not available Not available Not available 05/13/2024 60035 RxNorm Unabl e to get flu shot [facility] 4 09:48:49 Medications Name Sig [...] day by oral route. active rheumato logy- [facility] Not Available Not Available Not Available atorvasta [...] Address Organization Details Last Updated DateTime 5 23534.4 2 g 26.1 kg/m2 149.86 cm 65 /min 98 % 98 % 123 mm[Hg] 74 mm[Hg] Dinesh Mendez [facility] 13:12:58 Date Recorded Body height Body mass index (BMI) Body weight Provider Name and Address Organization Details Last Updated DateTime 02/24/2025 149.86 cm 26.1 kg/m2 57124.42 g Cha Barrientos [facility] 02/24/2025 15:33:24 Date Recorded Body height Body mass index (BMI) Body weight Heart rate Oxygen saturation Oxygen saturation in Arterial blood by Pulse oximetry Systolic blood pressure Diastolic blood pressure Provider Name and Address Organization Details Last Updated DateTime 149.86 cm 26 kg/m2 72253.6 2 g 62 /min 99 % 99 % 130 mm[Hg] 78 mm[Hg] Harris Shaw [facility] 14:27:13 Social History Question Answer Notes LastModified by Vserv Details LastModified Time Tobacco Smoking Status Former Smoker Not Available [employer] 02/05/2025 12:55:10 What Is Your Level Of Caffeine Consumption? Moderate [email or web address] Information not available 02/05/2025 When Did You Quit Smoking? 16+yearssince lastcigarette [email or web address] Information not available 02/05/2025 What Was The Date Of Your Most Recent Tobacco Screening? 03/12/2025 [email or web address] Information not available 03/12/2025 What Is Your Current Pack Years? 10packyears [email or web address] Information not available 02/05/2025 What Is Your Relationship Status? [email or web address] Information not available 02/05/2025 At What Age Did You Start Smoking Tobacco? 18 [email or web address] Information not available 02/05/2025 How Many Years Have You Smoked Tobacco? 6 [email or web address] Information not available 02/05/2025 Sex: Female Functional Status Question Answer Note LastModified by Vserv Details LastModified Time How many times per [...] 30 mcg/0.3 mL dose 11/12/2020 completed Dinesh bernard, [facility] 02/05/2025 13:13:02 COVID-19, mRNA, LNP-S, PF, 30 mcg/0.3 mL dose 12/04/2020 completed Jefferina Page null, [facility] 02/05/2025 13:13:02 COVID-19, mRNA, LNP-S, PF, 30 mcg/0.3 mL dose 07/06/2021 completed Jefferina Page null, [facility] 02/05/2025 13:13:02 COVID-19, mRNA, LNP-S, PF, 30 mcg/0.3 mL dose, byron-sucrose 03/21/2022 completed Jefferina Page null, [facility] 02/05/2025 13:13:02 COVID-19, mRNA, LNP-S, PF, 30 mcg/0.3 mL dose, byron-sucrose 06/28/2022 completed Jefferina Page null, [facility] 02/05/2025 13:13:02 COVID-19, mRNA, LNP-S, bivalent, PF, 30 mcg/0.3 mL dose 09/13/2022 completed Jefferina Page null, [facility] 02/05/2025 13:13:02 RSV, recombinant, protein subunit RSVpreF, adjuvant reconstituted, 0.5 mL, PF 07/14/2023 completed Jefferina Page null, [facility] 02/05/2025 13:13:02 COVID-19, mRNA, LNP-S, PF, byron-sucrose, 30 mcg/0.3 mL 07/25/2023 completed Jefferina Page null, [facility] 02/05/2025 13:13:02 Tdap 01/18/2023 completed Jefferina Page null, [facility] 02/05/2025 13:13:02 COVID-19, mRNA, LNP-S, PF, byron-sucrose, 30 mcg/0.3 mL 06/13/2024 completed TANNER HERNANDEZ MD [address] [place] [address], [address], [facility] 03/12/2025 06:58:52 Past Encounters Encounter ID Performer Location Encounter Start Date Encounter Closed Date Diagnosis/Indication Diagnosis SNOMED-CT Code Diagnosis ICD10 Code Diagnosis Note [id number] MD CIRO VILLASEÑOR [facility] [address] [place] [address] 11/14/2016 08:52:52 11/14/2016 09:58:05 History of malignant basal cell neoplasm of skin 094960644 Z85.828 Status post BCC on left dorsal forearm - doing well Lentigo 743547027 L81.4 reassuranc e 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 worsening, Avodart was helpful but ins wont cover this so she has elected to wear a wig Hemangioma 563324033 D18 .00 reassuranc e [id number] MD CIRO VILLASEÑOR [facility] [address] [place] [address] 11/26/2017 11:32:45 11/26/2017 13:56:55 History of malignant basal cell neoplasm of skin 018905170 Z85.828 Status post BCC on left dorsal forearm - doing well L[place]igo 515520586 L81.4 reassuranc e Postmenopa usal frontal fibrosing alopecia 909881533 L66.1 Avodart was helpful but ins wont cover this so she has elected to wear a wig Actinic keratosis 007 L57.0 Contact dermatitis 90828 004 L25.9 prob clothing related, using Tide clear Hold on patch tests for now. 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 Erythema of skin 4288167 08 L53.9 Reassuranc e and education regarding the disorder and options. Neoplasm o f uncertain behavior of skin 67268342 D48.5 Left upper buttock has a 1 cm red scaly slightly thickened papule--wa tc Hemangioma 546798119 D18 .00 Reassuranc e and education regarding the disorder and options. Postmenopa usal frontal fibrosing alopecia 176628414 L66.1 Avodart was helpful but ins wont cover this so she has elected to wear a wig [id number] MD CIRO VILLASEÑOR [facility] [address] [place] [address] 03/23/2020 11:11:19 03/23/2020 13:11:30 History of malignant basal cell neoplasm of skin 971558522 Z85.828 Status post BCC on left dorsal forearm - doing well Lentigo 253664779 L81.4 Reassuranc e Erythema of skin 7635120 08 L53.9 Reassuranc e Neoplasm o f uncertain behavior of skin 81155508 D48.5 Hemangioma 592810607 D18 .00 Reassuranc e Postmenopa usal frontal fibrosing alopecia 261868275 L66.1 Avodart was helpful but ins wont cover this so she has elected to wear a wig Actinic keratosis 234581 [address] x 1 Malignant melanoma of upper limb 720065447 C43.62 Left biceps - 6 mm r/o AN shave removal and base destroyed with ED [id number] MD CIRO VILLASEÑOR [facility] [address] [place] [address] 04/05/2020 16:11:23 04/06/2020 11:13:41 History of malignant basal cell neoplasm of skin 689241292 Z85.828 Status post BCC on left dorsal forearm - doing well Malignant melanoma of upper limb 196029012 C43.62 Left biceps 0.5 mm, fairly non-aggess beau features excised - tag: proximal ck margins f/u 12 days for sutures f/u 4 months for FSE [id number] MD CIRO VILLASEÑOR [address] [place] [address] 04/16/2020 10:23:35 04/16/2020 12:20:47 History of malignant basal cell neoplasm of skin 155763483 Z85.828 Status post BCC on left dorsal forearm - doing well Malignant melanoma of upper limb 191143925 C43.62 Left biceps 0.5 mm, fairly non-aggres sive features f/u 4 months for FSE Removal of suture 748254 01 Z48.02 [id number] MD CIRO VILLAESÑOR [facility] [address] [place] [address] 10/12/2020 11:17:22 10/12/2020 11:59:32 History of malignant basal cell neoplasm of skin 027574402 Z85.828 Status post BCC on left dorsal forearm - doing well History of Malignant melanoma 458820912 Z85.89 S/P MM on left biceps 0.5 mm 04/2020 - doing well Lentiginosis 750752226 L 81.4 Reassuranc e and education regarding the disorder and options. Raised quinn orrheic keratosis 1955047433 86896 L82.1 Reassuranc e and education regarding the disorder and options. Frontal fi brosing alopecia 994716657 L66.8 Reassuranc e and education regarding the disorder and options. Actinic keratosis [address]14[address] x 1 Multiple b enign melanocytic nevi 402032929 D22.9 Reassuranc e and education regarding the disorder and options. 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 growth vs rash, doubt cancer watch, return early if worse [id number] GABRIELLE BOCANEGRA MD [facility] [address] [place] [address] 11/21/2021 15:27:33 11/21/2021 15:54:09 History of malignant basal cell neoplasm of skin 296141722 Z85.828 Status post BCC on left dorsal forearm - doing well History of Malignant melanoma 272340543 Z85.89 S/P MM on left biceps 0.5 mm 04/2020 - doing well Lentiginosis 946620069 L 81.4 Reassuranc e Recommende d Equate Ultra Sunscreen 30+ and sun protecting hats/cloth ing Frontal fi brosing alopecia 671479861 L66.8 Reassuranc e Neoplasm o f uncertain behavior of skin 99310259 D48.5 left lower back - ? growth vs rash, doubt cancer watch, return early if worseno change Contact dermatitis 71401 004 L25.9 skin on face and chest flared upHold on patch tests for now.will start HCC 2.5 % cream BID x 2 weeks40 Kenalog IM given todayre-ck in 1 mth if not better in week or so contact office [id number] GABRIELLE BOCANEGRA MD [facility] [address] [place] [address] 01/30/2022 08:41:03 01/30/2022 10:07:52 History of malignant basal cell neoplasm of skin 457764163 Z85.828 Status post BCC on left dorsal forearm - doing well History of Malignant melanoma 481330629 Z85.89 S/P MM on left biceps 0.5 mm 04/2020 - doing well Lentiginosis 539251299 L 81.4 Reassuranc e Recommende d Equate Ultra Sunscreen 30+ and sun protecting hats/cloth ing Contact dermatitis 43427 004 L25.9 face and chest are clear todaytreat ed with Kenalog 40 mg and Hydrocorti sone cream - much betterHx genital/pe rianal rash better with clobetasol , QUALITY TECH did bx, told it was eczema -- edu re clob use Discussed patch testing if flares again Inflamed s eborrheic keratosis 063459446 L82.0 Education, then cryodestru ction with liquid nitrogen (LN) x 1 Neoplasm o f uncertain behavior of skin 71741831 D48.5 Right angle of jaw - Education, thenshave removaland base destroyed with electrodes sication. 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 sBCC [facility] 105128846 D23.9 Reassuranc e Contact dermatitis 34043 004 L25.9 Anterior axillary folds and slightly towards center? cause--katia thing, otherDiscu ssed dx and tx options including topical steroids, biopsy, allergy testStart TAC 0.025% BID, taper as tolerated [id number] TANNER HERNANDEZ MD [facility] [address] [place] [address] 02/05/2025 12:55:09 02/05/2025 14:02:27 Anxiety 84388282 F41.9 Citalopram 20 mg daily, Wellbutrin 150 mg SR daily - Stable. Continue current medication s without changes Essential hypertension 62093320 I10 Losartan 100 mg daily, metoprolol 25 mg XR daily Today's Plan:- Bloodwork ordered today- Stable. Continue current medication s without changes Mixed hyperlipidemia 267 980872 E78.2 Atorvastat in 80 mg daily -Lipid panel ordered today. Continue current medication s without changes Primary fi bromyalgia syndrome 54654272 M79.7 Follows with rheumatmachelle molina (Dr. Collin Bennett at [facility]). Takes gabapentin TID - Continue active management per antonia molina Osteopenia 528304899 M85 .80 DEXA with osteopenia in 2023. Taking 4000 units VitD3 daily History of pulmonary embolus 701466106 Z86.711 Apixaban 5 mg BID-Diagno sed in Oct 2024. Has follow up with pulm in May 2025 to decide if Apixaban is needing to be continued - Stable. Continue current medication s without changes. F/U with pulm as scheduled Gastroesop hageal reflux disease without esophagitis 553330248 K21.9 Omeprazole 20 mg daily- Stable. Continue current medication s without changes History of Spinal surgery 010752977 Z98.890 -Kyphoplas ty done on Oct 17, 2024seen by pain medicine and given tylenol/co deine rx which she rarely uses. Vertigo 633318672 R42 -reportedl y had done vestibular rehab in the past which has helped. Not currently doing and using meclizine multiple times per week.Refer to ENT for considerat ion of vestibular rehab episodes Memory impairment 676828 006 R41.3 self reported. Difficult to assess given first visit. Will triage with bloodwork today Adult heal th examination 020443048 Z00.00 Baseline blood work ordered today. Requesting records from former PCP. Uncertain when she is due for Medicare wellness exam [id number] ELKIN GREGORY MD [facility] [address] [place], [place] [address] 02/24/2025 15:27:26 02/25/2025 13:30:12 Dizziness 352622320 R42 [place] testing negative. Audiogram reviewed and interprete d. Asymmetric snhl right > left. Very severe on the right with poor discrimina tion score. MRI head/IACs to r/o acoustic neuroma. If normal would set her up for vestibular rehab. F/u after MRI Impacted c erumen of bilateral ears 4630905115 656276 H61.23 Removed from each canal. Asymmetric al sensorineural hearing loss 090407641 H90.3 Right > left [id number] TOMMY MYERS, CCC-A [facility] [address] [place], [place] [address] 02/24/2025 16:05:44 02/25/2025 04:20:18 Dizziness and giddiness 694892115 R42 Ear pressu re sensation 607331703 H93.8X3 Sensorineu ral hearing loss of bilateral ears 247382631 H90.3 [id number] TANNER HERNANDEZ MD [facility] [address] [place], [place] [address] 03/12/2025 13:49:10 03/12/2025 15:01:12 Adult health examination 370019908 Z00.00 Healthcare Maintenanc e: Vaccines/S creenings: Flu- due fall 5Covid- initial series in 2020. Most recent booster: [...] with next routine bloodwork Screening mammography 24 174042 Z12.31 Last mammogram 04/08/2024 , BI-RADS category 1, Negative.T here is no evidence of malignancy . Screening mammograms arerecomme nded in one year. Screening for malignant neoplasm of colon 218476096 Z12.11 No previous colonoscop y in patients chart, in view of patients age further screening is not indicated. Menopausal and postmenopausal disorders 684056486 N95.8 Last DEXA 04/14/2024 , patient has osteopenia , recommende d to repeat in 2 years. Hepatitis C screening 41 7354600 Z11.59 Has patient ever had Hep C screening? YES NO NO record in chart. Active immunization 3387 9002 Z23 Has patient had Hep B vaccine? YES NO NO record in chart.Prev nar20- UTD per patientTda p- 01/18/2023 Shingles- UTD per [id number] 01/2025 flu- No record in chart. Eye disord er screening 164827028 Z13.5 Has patient ever had eye/glauco ma screening? YES NO NO record in chart. Ex-smoker 7634310 Z87.89 1 Former smoker. No previous CT chest lung nodule screening in patients chart. Essential hypertension 25019174 I10 Losartan 100 mg daily, metoprolol 25 mg XR daily. Labs done February 2025 Today's Plan:- Stable/wel l controlled . Continue without changes. Recommende d home BP readings given dizziness as below Gastroesop hageal reflux disease without esophagitis 090344463 K21.9 Omeprazole 20 mg daily - Stable. Continue current medication s without changes Mixed hyperlipidemia 267 330443 E78.2 Atorvastat in 80 mg daily. Lipid panel well-contr olled in February 2025 (LDL 63) - Stable. Continue without changes Anxiety 67266877 F41.9 Citalopram 20 mg daily, Wellbutrin 150 mg SR daily - Stable. Continue current medication s without changes Osteopenia 224147488 M85 .80 DEXA with osteopenia in 2023. Taking 4000 units VitD3 daily. - Repeat DEXA in 2 years (April 2026) Primary fi bromyalgia syndrome 12941531 M79.7 Follows with antonia molina (Dr. Collin Bennett at [facility]). Takes gabapentin TID - Continue active management per antonia molina Dizziness 952677435 R42 -reportedl y had done vestibular rehab [...] Recorded Advance Directives Directive None Recorded Payers Insurance Date Sequence Insurance Name Policy Number Policy Vaughn Covered Member ID Vaughn Member ID Guarantor Name 03/09/2025 2 [place] (MEDICARE SUPPLEMENT) Sarah G Scovell [id number] Sarah G Scovell 03/12/2025 1 [place] Sarah G Scovell [id number] Sarah G Scovell Notes Date Note Type Note Provider Name and Address Organization Details Recorded Time 05/13/2024 text/html Established Sania entHx of MM on left biceps 0.5 mm [...] or bleeding lesions, or other rashes, feels well ,in a good mood has no family history of melanoma. GABRIELLE BOCANEGRA MD [facility] [place], [address], [facility] 05/13/2024 16:16:30 02/05/2025 text/html Sarah Hansen is a 79 year old female presenting to [facility] care. Previous PCP was Dr. Ro in [facility]. She saw him last earlier this year. [...] Social History:Work: retired, formerRNHome: lives with in [facility]: former smoker, quit 50+ years agoAlcohol: occasionalIllicits: noneReligion: christianHobbies: plays piano, enjoys reading Annual Exam: due summer 2024 TANNER HERNANDEZ MD [address] [place] [address], [address], [facility] 02/05/2025 15:35:22 02/24/2025 text/html Ref: Tanner Hernandez, MDCrief Complaint: DizzinessTiming: Years, worsened over the past yearDuration: Intermittent each episode lasting a couple hours to a whole day, has minor episodes every day right nowLocation:Severity:Q uality: mostly off-balance, no spinningContext:Modify ing Factors: Meclizine, vestibular rehab in the past [...] she is dizzy ELKIN GREGORY MD [address] [place], [address], [facility] 02/24/2025 16:43:00 03/12/2025 text/html Sarah Hansen is a 79 [...] History:Work: retired, former RNHome: lives with in 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 - No Home [...] friends, or caretakers? - No Imported from [facility] on 03/12/2025 TANNER HERNANDEZ MD [address] [place] [address], [phone], [facility] 03/12/2025 14:57:59 OBGyn Episode No OBEpisode recorded.
--- OUTSIDE RECORDS SUMMARY | 2025-03-18 13:15 | XMS_ITS | Referral Summary ---
Author Organization [facility] Address [address] [place] [address] Care Team Providers Care Wastewater Supervisor Name Role Phone Jeancarlos Santizo MD Unavailable [phone] Social History Tobacco Use Types Packs/Day [...] Date Joe rded Speak language other than British at home Not on file 10/26/2023 Want [...] Orientation Not on file Plan of Treatment Not on file Insurance GENERIC COMMERCIAL MEDICARE PART A B Care Teams Wastewater Supervisor Relationship Specialty Start Date End Date Jeancarlos Santizo MD [address] [place] [address] Referring Physician General Internal Medicine 03/21/23
--- NOTE | 2025-03-18 13:17 | MR_ITS ---
FINAL REPORT CLINICAL HISTORY: DIZZINESSS/ GIDDINESS RIGHT EAR HEARING LOSS COMPARISON: None FINDINGS: Multiplanar MR imaging of the brain was performed without and with contrast. Images of the internal auditory canals were obtained. There are small foci of increased T2 signal in the deep white matter bilaterally, that are age-appropriate and likely represent mild changes of ischemic microvascular disease. There is no evidence of intracranial hemorrhage or mass. No abnormal extra-axial fluid collection is seen. The ventricular size is within normal limits. There is no evidence of shift of the midline structures. The posterior fossa and brainstem have an unremarkable appearance. No area of abnormal restricted diffusion is identified. No abnormal contrast enhancement is seen. Normal major vessel vascular flow voids are noted. IMPRESSION: Mild age-appropriate changes of ischemic microvascular disease are present in the deep white matter. Otherwise, unremarkable MRI of the head as described. Reviewed, Interpreted and Dictated by Ammon Darnell MD Transcribed by Nichole Hennessy Authenticated and [facility]
[2025-03-18 13:50] LABS: Blood Urea Nitrogen 13 mg/dl (7-17); Estimated Glomerular Filt Rate 119 ml/min (>60); GFR (African American) 144 ML/MIN (>60)
[2025-03-18] MEDS: GADOTERIDOL INJ 10ML SYRINGE 10 ML IV (14:48)
[2025-03-18] MEDS: SODIUM CHLORIDE 0.9% 10ML SYR (RAD ONLY) 10 ML IV (14:48)
== END 2025-03-18 23:59 | disposition home or self-care (01) ==
LOC: RAD 13:12
PROVIDERS: PCP Otolaryngology; Visit Provider Otolaryngology
DX: I99.8 Other disorder of circulatory system (principal); R42 Dizziness and giddiness
CPT/HCPCS: 36415; 70553; 82565; 84520; A9576

== ENCOUNTER 2025-03-24 14:14 | Day surgery (SDC) | payer MEDICARE, OTHER, SELFPAY ==
[2025-03-24 14:25] VITALS: BP 145/61; PULSE 65; RESP 16; TEMP 36.6; O2SAT 100; BMI 24.8
[2025-03-24 14:50] VITALS: BP 134/79; PULSE 58; RESP 18; O2SAT 95
--- NOTE | 2025-03-24 14:53 | EXP.PAIN.PRO ---
Procedure Date: 03/24/25 Time: 14:50 Anesthesiologist:: Lefty Bowman CRNA Complications:: None Pre-procedure Diagnosis:: Left sacroiliitis Post-procedure Diagnosis:: Same Indications for Procedure:: Patient is a pleasant 79-year-old female who comes our clinic today for left sacroiliac joint injection of cortisone local anesthetic. Patient describes left low lumbar back pain as constant, dull, aching. She has extreme point tenderness over the left sacroiliac joint. She describes left posterior hip pain as constant, dull, aching. She reports having difficulty with ambulation due to the left posterior hip pain. She rates her pain 7/10. Procedure Details:: Procedure: Left sacroiliac injection under fluoroscopy Informed consent was obtained and the risk and benefits of the procedure were explained to the patient.~ The patient was taken to the procedure room and noninvasive monitors were placed including noninvasive blood pressure cuff and pulse oximeter.~ The patient was placed prone on the procedure table.~ The~ left hip was cleansed using Betadine as a cleansing solution.~ C-arm fluorosocpy was used to view the left SI joint.~ The skin and subcutaneous tissues were anesthetized using Lidocaine 1.5% and a 25-gauge needle.~ After this, a 22-gauge spinal needle was inserted under fluoroscopic guidance into the inferior aspect of the left SI joint.~ Omnipaque dye was injected and a good spread was seen throughout the joint.~ After this, approximately 5 mL of bupivacaine 0.25% and Depo-Medrol 40 mg was incrementally injected into the sacroiliac joint.~ The patient tolerated the procedure well with no complications.~ The patient was observed in the Pain Clinic for a period of 30-45 minutes, then discharged home neurologically intact.~ Plan and Disposition:: Patient was discharged without incident.
[2025-03-24] MEDS: BUPIVACAINE 0.25% 10ML INJ 25 MG IJ (15:09)
[2025-03-24] MEDS: LIDOCAINE 1% 5ML PF VIAL 5 ML (15:09)
[2025-03-24 15:10] VITALS: BP 172/52; PULSE 66; RESP 18; O2SAT 95
[2025-03-24] MEDS: DEXAMETHASONE 10MG/ML 1ML VIAL 10 MG (15:10)
== END 2025-03-24 14:50 | disposition home or self-care (01) ==
LOC: SC.PAINP 14:15
PROVIDERS: Visit Provider Nurse Anesthetist, Certified Registered
DX: M46.1 Sacroiliitis, not elsewhere classified (principal); K21.9 Gastro-esophageal reflux disease without esophagitis; E78.5 Hyperlipidemia, unspecified; I10 Essential (primary) hypertension; Z87.891 Personal history of nicotine dependence; Z88.5 Allergy status to narcotic agent; Z88.8 Allergy status to other drugs, medicaments and biological substances; Z79.899 Other long term (current) drug therapy
CPT/HCPCS: 64450; 77002; J0665; J1100; J2003

== ENCOUNTER 2025-03-27 14:00 | Outpatient (RCR) | payer MEDICARE, OTHER, SELFPAY ==
--- NOTE | 2025-03-16 15:38 | HMH.RHREAS ---
Rehab Reassessment Rehab OP Re-assessment Start: 03/16/25 13:15 Freq: Status: Active Protocol: Document 03/16/25 13:15 BING (Rec: 03/16/25 14:06 BING [id number]) E-signed By Ligia Palomino, PT Oswestry Index Section 1 Pain Intensity The pain is moderate and does not vary much Section 2 Personal Care ( change my way of washing or dressing in order to avoid Washing,Dresing) pain Section 3 Lifting lifting heavy weights off the floor, but I can manage if they are Section 4 Walking I have some pain when walking but it does not increase with distance Section 5 Sitting Pain prevents me from sitting for more than one hour Section 6 Standing I cannot stand more than 1 hour without increasing pain Section 7 Sleeping I get pain in bed, but it does not prevent me from sleeping well Section 8 Social Life Pain has no significant effect on my social life apart from limiting Section 9 Traveling I get some pain when traveling, but none of my usual forms of travel m Section 10 Changing Degreee of My pain seems to be getting better, but improvement is Pain slow Score and Risk Level Oswestry Sc 17 Oswestry Risk Level Moderate Disability Rehab Re-assessment Subjective Subjective 48 hour pain average: 04/16 HEP adherence: Good adherence to HEP. Pt reports she feels 60% improved since IE. I feel like there is improvement. Pt reports her primary complaint is going from sitting to standing straight up and generalized stiffness. Pt has a goal to ambulate without SPC. 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 Assessment Progress Assessment Progressing as Expected Assessment Notes This is a reassessment for Sarah Tyrone who presents to PT for c/o LBP. Since IE, pt has been seen for 10 visits that have consisted of modalities prn, education , and therapeutic exercises focusing on ROM and core strength. Some sessions limited by late arrival but pt with good attendance to scheduled PT visits and reports adherence to HEP. Pt finds LBP relief with STM to lumbar paraspinals, stretching, and modalities. Since IE, pt with improvements in strength, ROM, and subjective reports of pain. Pt would continue to benefit from skilled outpatient physical therapy to address remaining deficits and achieve LTGs. Patient goals met 1) Improve lumbar AROM flex to at least 70, LF to 10: Met 2) Improve BLE MMT to 4-4+/5 grossly to assist with function: Met 3) Community ambulation without an AD safely: Not Met, still uses SPC 4) Demonstrate proper lifting mechanics to prevent reinjury: Not met, Not tested 5) FT EC unstable surface 30 without LOB to decrease fall risk: Not met 6) Improve score to 13 or less to improve overall QOL: Met at last RA, Not met this date. 7) Improve pain at worst to 6/10 to improve overall QOL : Not met Goals Not Met LTGs Plan Plan Continue POC Add gait training/theract to reach pt goal. Frequency of Therapy 2-3x per week Duration of therapy 3-4 more weeks Time and Billing Re-Eval Time 10 Re-Eval Billing 0 Units Charge for PT No reassessment? PHYSICIAN CERTIFICATION: I certify the specified therapy services for Sarah Hansen are required, authorized, and reviewed every 30 days.
== END 2025-03-27 23:59 | disposition home or self-care (01) ==
LOC: PT 14:00
PROVIDERS: PCP Internal Medicine; Visit Provider Nurse Practitioner Family
DX: M51.369 Other intervertebral disc degeneration, lumbar region without mention of lumbar back pain or lower extremity pain (principal); M47.816 Spondylosis without myelopathy or radiculopathy, lumbar region; M46.1 Sacroiliitis, not elsewhere classified; M54.16 Radiculopathy, lumbar region; G89.29 Other chronic pain
CPT/HCPCS: 97014; 97110; 97140; 97530; G0283

== ENCOUNTER 2025-04-30 09:56 | Outpatient (POV) | payer MEDICARE, OTHER, SELFPAY ==
--- OUTSIDE RECORDS SUMMARY | 2025-02-25 07:32 | XMS_ITS | Continuity of Care Document ---
Author Name [facility] Organization [facility] Care Team Providers Care Teacher'S Assistant Name Role Phone [facility] Unavailable Unavailable Problems Combined list of problems from Department of [facility] facilities. It does not include entries that were removed or entered in error. Problem Status Onset Date Problem Type Date of Resolution Comments Source Asymmetric sensorineural hearing loss Active Condition [facility] Diagnosis: ICD-10-CM Z46.1 Encounter for fitting and adjustment of hearing aid Active Diagnosis [facility] Diagnosis: ICD-10-CM H90.5 Unspecified sensorineural hearing loss Active Diagnosis [facility] Encounters Combined list of: 1) Encounters from [facility] facilities going backup to the last 18 months, not all [place] inpatient encounters are included; 2) Encounters from the [facility] of [facility] facilities going backup to 280 months. Location Location Details Encounter Type Encounter Number Reason For Visit Attending Provider ADM Date DC Date Status Disposition Source [facility] Outpatient Encounter [id number] ISELACALEB FELY Allen 10/11 [place] HEARING AID REPAIR/MOD IFYING [id number] Diagnos is: ICD-10- CM H90.5 Unspeci fied sensori neural hearing loss SUNDAR BATES STIBrijesh 10/11 [place] [facility] [place] [id number] Diagnos is: ICD-10- CM Z46.1 Encount er for fitting and adjustm ent of hearing aid SUNDAR BATES STIBrijesh 11/08 [place] [facility] HEARING AID REPAIR/MOD IFYING [id number] Diagnos is: ICD-10- CM Z46.1 Encount er for fitting and adjustm ent of hearing aid DUCYANCI ALEKS Rivera 12/18 [place] HEARING AID REPAIR/MOD IFYING [id number] Diagnos is: ICD-10- CM Z46.1 Encount er for fitting and adjustm ent of hearing aid Shaylee BRIDGES 01/07 [place] Outpatient Encounter [id number] 02/25 [place] [facility] Outpatient Encounter [id number] 02/25 [place] [facility]
--- OUTSIDE RECORDS SUMMARY | 2025-03-10 09:45 | XMS_ITS | Encounter Summary ---
[facility] Address [address] [place] [address] Care Team Providers Care Manager Forms Name Role Phone Tanner Mcdonnell MD Primary Care Provide r Reason for Referral * Diagnostic Imaging (Routine) - Authorized Specialty Diagnoses / Procedures Referred By Howard lee Referred To Contact Rheumatology Diagnoses Postmenopause Procedures DEXA Bone Density Axial Collin Bennett DO [address] [place] [phone] Phone: tel: fax: [facility] [address] [place] [phone] Phone: tel: fax: Referral ID Status Reason Start Date Expiration Date V isits Requested Visits Authorized [id number] Authorized 03/10/2025 06/09/2026 1 1 Reason for Visit * Reason Comments Osteoarthritis Follow up Fibromyalgia Follow up Encounter Details Date Type Department Care Team (Latest Contact Info) Description 03/10/2025 9:45 AM EDT Office Visit [facility] [address] [place] [phone] Collin Bennett DO [address] [place], [place] [id number] Primary osteoarthritis involving multiple joints (Primary Dx); Fibromyalgia; Encounter for therapeutic drug monitoring; Postmenopause Social History Tobacco Use Types Packs/Day Years Used Date Smoking Tobacco: Former Cigarettes 1 10 Smokeless Tobacco: Never Tobacco Cessation:Counseling Given: Not Answered Comments:QUIT 50 YEARS AGO Alcohol Use Standard Drinks/Week Comments No 0 (1 standard drink = 0.6 oz pur e alcohol) AUDIT-C Answer Date Recorded Frequency of Alcohol Consumption Never 04/08/2019 Average Number of Drinks Not on file 019 Frequency of Binge Drinking Not on file 11/2018 Comments No Sex and Gender Information Value Date Recorded Sex Assigned at Female 03/03/2025 10:02 AM EDT Legal Sex Female 12:53 PM EDT Gender Identity Not on file Sexual Orientation Choose not to disclose 2024 10:02 AM EDT documented as of this encounter Last Filed Vital Signs Vital Sign Reading Time Taken Comments Blood Pressure 132/72 03/10/2025 10:06 AM EDT Pulse 68 03/10/2025 10:06 AM EDT Temperature 36.1 C (97 F) 03/10/2025 10:06 AM EDT Respiratory Rate - - Oxygen Saturation - - Inhaled Oxygen Concentration - - Weight 55.5 kg (122 lb 6.4 oz) 03/10/2025 10:06 AM EDT Height 152.4 cm (5') 03/10/2025 10:06 AM EDT Body Mass Index 23.9 03/10/2025 10:06 AM EDT documented in this encounter Patient Instructions * Attachments The following attachments cannot be sent through Care Everywhere. * Osteoarthritis ([place] Citizen) documented in this encounter Progress Notes * Collin Bennett DO - 03/10/2025 9:45 AM EDTAssociated Problem(s): Osteoarthritis * Medications/treatments/interventions tried include: Tylenol, gabapentin, Aleve, Tumeric, she has done physical therapy, she saw an orthopaedic surgeon, she has had knee replacement surgery, Citalopram, Back injection, she has seen a landscape painter 1. Tylenol PRN is ok as directed 2. She has tried NSAIDS like Aleve PRN 3. She has done physical therapy 4. She has seen an orthopaedic surgeon 5. She has had knee replacement surgery 6. She has tried supplements like Tumeric 7. She has taken gabapentin for neuropathic pain 8. Follow up in 6 months 9. She has seen pain management specialists 10. She had a back injection * Collin Bennett DO - 03/10/2025 9:45 AM EDTAssociated Problem(s): Fibromyalgia 1. H & P consistent with this diagnosis. 2. Encourage aerobic activity and sleep hygiene. 3. If she has not had a sleep study/consultation consider getting this done. 4. Handout on OA given to her to take home and review. 5. Tylenol PRN is ok as directed 6. Continue gabapentin/refill today. 05/23/23 we offered to increase her dosage. She declined 7. She has taken citalopram 8. She has tried NSAIDS like Aleve PRN 9. She has done some physical therapy * Collin Bennett DO - 03/10/2025 9:45 AM EDTAssociated Problem(s): Encounter for therapeutic drug monitoring * Gabapentin 100 mg PO TID For neuropathic pain/fibromyalgia * Controlled substance agreement signed 05/27/24 Check SAMREEN and Drug screen as required. Drug screen ordered today * Collin Bennett DO - 03/10/2025 9:45 AM EDT Images from the original note were not included. Office Follow Up Date: 03/10/2025 Patient Name: Sarah Hansen Date of : 1945 Referring Physician: No ref. provider found Chief Complaint Patient presents with Osteoarthritis Follow up Fibromyalgia Follow up History of Present Illness: Sarah Hansen is a 79 y.o. female who is here today for follow up. She established care with us as of 02/15/23. Her autoimmune evaluation was unremarkable. We have prescribed her gabapentin. No recent serious injuries or infections. No fever. Today she rates her pain as 7/10 in severity. She has 60 minutes of morning stiffness. No red or hot joints. No swelling. She has back discomfort. No neck issues. She has muscle pain. No weakness. She has difficulty walking. She has had injections in her back. She has seen a landscape painter in [place]. She is fatigued. No sicca symptoms. No shortness of breath. No chest pain. She has seen cardiology.She has heartburn. She has to urinate urgently. No pain with urination. She notes hair loss. No rash. No headaches or paresthesias. No lymphadenopathy. She bruises easily. Subjective Review of Systems Constitutional: Positive for activity change and fatigue. HENT: Positive for hearing loss, rhinorrhea and sinus pressure. Eyes: Negative. Respiratory: Negative. Gastrointestinal: Negative. Positive for GERD. Endocrine: Positive for cold intolerance. Genitourinary: Positive for urgency. Musculoskeletal: Positive for arthralgias, back pain, gait problem and myalgias. Skin: Negative. Positive for bruise. Allergic/Immunologic: Negative. Neurological: Positive for dizziness, light-headedness and memory problem. Hematological: Bruises/bleeds easily. Psychiatric/Behavioral: Positive for decreased concentration and stress. All other systems reviewed and are negative. Current Outpatient Medications: atorvastatin (LIPITOR) 40 MG tablet, Take 1 tablet by mouth Daily., Disp: , Rfl: buPROPion SR (WELLBUTRIN SR) 150 MG 12 hr tablet, TAKE 1 TABLET BY MOUTH ONCE DAILY IN THE MORNING FOR DEPRESSION, Disp: , Rfl: Cholecalciferol 100 MCG (4000 UT) capsule, Take by mouth., Disp: , Rfl: citalopram (CeleXA) 20 MG tablet, Take 0.5 tablets by mouth Every Morning., Disp: , Rfl: clobetasol propionate (TEMOVATE) 0.05 % cream, Apply 1 Application topically to the appropriate area as directed., Disp: , Rfl: Eliquis 5 MG tablet tablet, Take 1 tablet by mouth Every 12 (Twelve) Hours., Disp: , Rfl: gabapentin (NEURONTIN) 100 MG capsule, Take 1 capsule by mouth 3 (Three) Times a Day., Disp: 270 capsule, Rfl: 1 losartan (COZAAR) 100 MG tablet, losartan 100 mg tablet Take 1 tablet every day by oral route., Disp: , Rfl: meclizine (ANTIVERT) 25 MG tablet, Take 1 tablet by mouth As Needed., Disp: , Rfl: metoprolol succinate XL (TOPROL-XL) 25 MG 24 hr tablet, Take 1 tablet by mouth Daily., Disp: , Rfl: Multiple Minerals-Vitamins (CITRACAL PLUS PO), Take by mouth., Disp: , Rfl: multivitamin with minerals (CENTRUM SILVER 50+WOMEN PO), Take 1 tablet by mouth Daily. Once daily-8mg [id number] mcg, Disp: , Rfl: omeprazole (priLOSEC) 20 MG capsule, Take 1 capsule by mouth Every Morning., Disp: , Rfl: triamcinolone (KENALOG) 0.025 % cream, Apply 1 Application topically to the appropriate area as directed., Disp: , Rfl: No current facility-administered medications for this visit. Facility-Administered Medications Ordered in Other Visits: mupirocin (BACTROBAN) 2 % nasal ointment, , Nasal, BID, Yevgeniy Leonard MD Allergies Allergen Reactions Darvon [Propoxyphene] Swelling Morphine Swelling Other Rash Flu shot Thimerosal Hives I have reviewed and updated the patient's chief complaint, history of present illness, review of systems, past medical history, surgical history, family history, social history, medications and allergy list as appropriate. Objective Vitals: 03/10/25 1006 BP: 132/72 BP Location: Left arm Patient Position: Sitting Cuff Size: Adult Pulse: 68 Temp: 97 ??F (36.1 ??C) Weight: 55.5 kg (122 lb 6.4 oz) Height: 152.4 cm (60 ) PainSc: 7 Body mass index is 23.9 kg/m??. Physical Exam General: Well appearing 79 year old female. Not in distress. She is ambulating unassisted. SKIN: No rashes. No alopecia. No subcutaneous nodules. No digital pits or ulcers. No sclerodactyly. HEENT: NCAT. Conjunctiva clear, no photophobia. No oral or nasal ulcers. Hearing intact. Pulmonary: Clear to auscultation bilaterally. No wheezing, rales, or rhonchi. CV: Regular rate and rhythm. No murmurs, rubs, or gallops. Psych: Normal mood and affect. Alert and oriented x 3. Extremities: No cyanosis or edema. Musculoskeletal: No joint swelling. She has myofascial tenderness above and below the waist. No warmth or erythema. Normal range of motion of the wrists, ankles, elbows, and knees. Lymph: No palpable cervical adenopathy Procedures Assessment / Plan Assessment & Plan Primary osteoarthritis involving multiple joints * Medications/treatments/interventions tried include: Tylenol, gabapentin, Aleve, Tumeric, she has done physical therapy, she saw an orthopaedic surgeon, she has had knee replacement surgery, Citalopram, Back injection, she has seen a landscape painter 1. Tylenol PRN is ok as directed 2. She has tried NSAIDS like Aleve PRN 3. She has done physical therapy 4. She has seen an orthopaedic surgeon 5. She has had knee replacement surgery 6. She has tried supplements like Tumeric 7. She has taken gabapentin for neuropathic pain 8. Follow up in 6 months 9. She has seen pain management specialists 10. She had a back injection Fibromyalgia 1. H & P consistent with this diagnosis. 2. Encourage aerobic activity and sleep hygiene. 3. If she has not had a sleep study/consultation consider getting this done. 4. Handout on OA given to her to take home and review. 5. Tylenol PRN is ok as directed 6. Continue gabapentin/refill today. 05/23/23 we offered to increase her dosage. She declined 7. She has taken citalopram 8. She has tried NSAIDS like Aleve PRN 9. She has done some physical therapy Encounter for therapeutic drug monitoring * Gabapentin 100 mg PO TID For neuropathic pain/fibromyalgia * Controlled substance agreement signed 05/27/24 Check SAMREEN and Drug screen as required. Drug screen ordered today Postmenopause Will order DXA scan Orders Placed This Encounter Procedures DEXA Bone Density Axial Urine Drug Screen - Urine, Clean Catch New Medications Ordered This Visit Medications gabapentin (NEURONTIN) 100 MG capsule Sig: Take 1 capsule by mouth 3 (Three) Times a Day. Dispense: 270 capsule Refill: 1 Follow Up: Return in about 6 months (around 09/09/2025). Collin Bennett DO [facility] Rheumatology [facility] documented in this encounter Plan of Treatment Upcoming Encounters Date Type Department Care Team (Late st Contact Info) Description 09/11/2025 1:00 PM EST Appointment [facility] DEXA [address] [phone] 09/11/2025 1:45 PM EST Office Visit [facility] [address] [phone] Collin Bennett DO [address] [id number] Scheduled Orders Name Type Priority Associated Diagnoses Orde r Schedule Urine Drug Screen - Urine, Clean Catch Lab Routine Primary osteoarthritis involving multiple joints Fibromyalgia Encounter for therapeutic drug monitoring Ordered: 03/10/2025 DEXA Bone Density Axial Imaging Routine Postmenopause Expected: 03/13/2025, Expires: 06/10/2026 documented as of this encounter Visit Diagnoses Diagnosis Primary osteoarthritis involving multiple joints- Primary Fibromyalgia Unspecified myalgia and myositis Encounter for therapeutic drug monitoring Postmenopause Asymptomatic postmenopausal status (age-related) (natural) documented in this encounter Care Teams Manager Forms Relationship Specialty Start Date End Date Tanner Mcdonnell MD [address] [place] [address] PCP - General Internal Medicine 03/10/25 documented as of this encounter
--- OUTSIDE RECORDS SUMMARY | 2025-04-09 10:56 | XMS_ITS | Encounter Summary ---
Author Organization [facility] ([place], [place], [place], [place]) Address [address] [place] [address] Care Team Providers Care Port Engineer Name Role Phone Jeancarlos Santizo MD Unavailable [phone] Tanner Mcdonnell MD Primary Care Provide r Reason for Referral * Mammography (Routine) - Closed Specialty Diagnoses / Procedures Referred By Howadr lee Referred To Contact Radiology Diagnoses Screening for breast cancer Procedures MM digital mammo screen with cecilia bilateral Tanner Mcdonnell MD [address] [place] [address] Phone: tel: fax: Referral ID Status Reason Start Date Expiration Date Visits Re quested Visits Authorized [id number] Closed 04/09/2025 04/09/2026 1 1 Reason for Visit * Mammography (Routine) - Closed Specialty Diagnoses / Procedures Referred By Howard lee Referred To Contact Radiology Diagnoses Screening for breast cancer Procedures MM digital mammo screen with cecilia bilateral Tanner Mcdonnell MD [address] [place] [address] Phone: tel: fax: Referral ID Status Reason Start Date Expiration Date Visits Re quested Visits Authorized [id number] Closed 04/09/2025 04/09/2026 1 1 Encounter Details Date Type Department Care Team (Latest Contact Info) Description 04/09/2025 10:56 AM EDT - 04/09/2025 11:59 PM EDT Hospital Encounter [facility] [address] [place] [address] Tanner Mcdonnell MD [address] [place] [address] Screening for breast cancer Discharge Disposition: Home or Self Care Social History Tobacco Use Types Packs/Day Years Used Date Smoking Tobacco: Never Assessed Employment Answer Date Recorded Help finding and keeping a job Not on file 0 10/26/2023 Family and Community Support Answer Daryl e Recorded Help with Day to Day Activities Not on file 10/26/2023 Feeling Lonely or Isolated Not on file 10/26 Educational Attainment Answer Date Joe rded Speak language other than Luxembourgish at home Not on file 10/26/2023 Want help with school or training Not on file 10/26/2023 Substance Use Answer Date Recorded Used prescription meds for non-medical reasons N ot on file 10/26/2023 Used illegal drugs past 12 months Not on file 10/26/2023 Comments No Sex and Gender Information Value Date Recorded Sex Assigned at Female 04/04/2022 6:22 PM CDT Legal Sex Female 6:22 PM CDT Gender Identity Female 04/04/2022 6:22 PM CDT Sexual Orientation Not on file documented as of this encounter Last Filed Vital Signs Vital Sign Reading Time Taken Comments Blood Pressure - - Pulse - - Temperature - - Respiratory Rate - - Oxygen Saturation - - Inhaled Oxygen Concentration - - Weight 55.8 kg (123 lb) 04/09/2025 11:10 AM EDT Height 149.9 cm (4' 11 ) 04/09/2025 11:10 AM EDT Body Mass Index 24.84 04/09/2025 11:10 AM EDT documented in this encounter Plan of Treatment Upcoming Encounters Date Type Department Care Team (Late st Contact Info) Description 04/14/2026 11:45 AM EDT Appointment [facility] [address] [place] [address] documented as of this encounter Procedures Procedure Name Priority Date/Time Associated Diagnosis Comments MM DIGITAL MAMMO SCREEN WITH CECILIA BILATERAL Routine 04/09/2025 11:13 AM EDT Screening for breast cancer documented in this encounter Results * MM digital mammo screen with cecilia bilateral (04/09/2025 11:13 AM EDT) Anatomical Region Laterality Modality Breast Bilateral Mammography 04/12/2025 11:4 6 AM EDT Impressions 04/12/2025 11:47 AM EDT No mammographic evidence of malignancy BI-RADS CATEGORY: 2 , BENIGN FINDING(S). RECOMMENDED FOLLOW-UP: Annual mammography A letter including results and recommendations was sent to the patient. Density notification was included for patients with pattern 3 or 4 breast tissue. Patient information was entered into a reminder system with a target due date for the next mammogram. NOTES: Mammography does not detect approximately 10-15% of breast cancers. Physical examination of the breasts by a physician and regular monthly breast self examinations are integral parts of breast cancer screening. A normal mammogram does not exclude breast cancer if there is an abnormal finding on physical examination. When clinically indicated, a biopsy should not be postponed because of a normal mammogram report. Narrative 04/12/2025 11:47 AM EDT BILATERAL SCREENING DIGITAL MAMMOGRAPHY CLINICAL INDICATION: Routine screening TECHNIQUE: Bilateral CC and MLO views were obtained with digital acquisitions with 3D tomosynthesis. The study was read with the assistance of CAD. COMPARISON: Exams dating back to 2019 DENSITY: The breasts are heterogeneously dense, which may obscure small masses FINDINGS: There are no spiculated masses, areas of distortion or suspicious calcifications. Benign calcifications are noted unchanged. Tanner Mcdonnell MD IMG MAMMOGRAPHY ORDER CITLALI Final Result documented in this encounter Visit Diagnoses Diagnosis Screening for breast cancer Breast screening, unspecified documented in this encounter Care Teams Port Engineer Relationship Specialty Start Date End Date Tanner Mcdonnell MD [address] [place] [address] PCP - General Internal Medicine 04/09/25 Jeancarlos Santizo MD [address] [place] [id number] Referring Physician General Internal Medicine 03/21/23 documented as of this encounter
--- OUTSIDE RECORDS SUMMARY | 2025-04-30 10:01 | XMS_ITS | Encounter Summary ---
Author Organization [facility] ([place], [place], [place], [place]) Address [address] [place] [address] Care Team Providers Care Aviation Safety Technician Name Role Phone Jeancarlos Santizo MD Unavailable [phone] Tanner Mcdonnell MD Primary Care Provide r Reason for Referral * Mammography (Routine) - Authorized Specialty Diagnoses / Procedures Referred By Contac t Referred To Contact Radiology Diagnoses Visit for screening mammogram Procedures MM digital mammo screen with herbert bilateral Tanner Mcdonnell MD [address] [place] [address] Phone: tel: fax: [address] [place] [address] Phone: tel: fax: Referral ID Status Reason Start Date Expiration Date V isits Requested Visits Authorized [id number] Authorized 04/14/2026 04/14/2027 1 1 Encounter Details Date Type Department Care Team (Late st Contact Info) Description 04/09/2025 Outside Orders [address] [place] [address] Tanner Mcdonnell MD [address] [place] [address] Visit for screening mammogram (Primary Dx) Social History Tobacco Use Types Packs/Day Years [...] Date Joe rded Speak language other than Sammarinese at home Not on file 10/26/2023 Want [...] on file documented as of this encounter Plan of Treatment Upcoming Encounters Date Type Department Care Team (Late st Contact Info) Description 04/14/2026 11:45 AM EDT Appointment [address] [place] [address] Scheduled Orders Name Type Priority Associated Diagnoses Orde r Schedule MM digital mammo screen with herbert bilateral Imaging Routine Visit for screening mammogram Expected: 04/14/2026, Expires: 04/14/2027 documented as of this encounter Visit Diagnoses Diagnosis Visit for screening mammogram- Primary documented in this encounter Care Teams Aviation Safety Technician Relationship Specialty Start Date End Date Tanner Mcdonnell MD [address] [place] [address] PCP - General Internal Medicine 04/09/25 Jeancarlos Santizo MD [address] [facility] [address] [place] [address] Referring Physician General Internal Medicine 03/21/23 documented as of this encounter
--- OUTSIDE RECORDS SUMMARY | 2025-04-30 10:01 | XMS_ITS | Encounter Summary ---
Author Organization [facility] Address [address] [place] [address] Care Team Providers Care Quality Control Tester Name Role Phone Tanner Mcdonnell MD Primary Care Provide r Encounter Details Date Type Department Care Team (Latest Contact Info) Description 03/10/2025 Travel Social History Tobacco Use Types Packs/Day Years Used Date Smoking Tobacco: Former Cigarettes 1 10 Smokeless Tobacco: Never Comments:QUIT 50 YEARS AGO Alcohol Use Standard Drinks/Week Comments No 0 (1 standard drink = 0.6 oz pur e alcohol) AUDIT-C Answer Date Recorded Frequency of Alcohol Consumption Never 04/08/2019 Average Number of Drinks Not on file Frequency of Binge Drinking Not on file 11/2018 Comments No Sex and Gender Information Value Date Recorded Sex Assigned at Female 03/03/2025 10:02 AM EDT Legal Sex Female 12:53 PM EDT Gender Identity Not on file Sexual Orientation Choose not to disclose 2024 10:02 AM EDT documented as of this encounter Plan of Treatment Upcoming Encounters Date Type Department Care Team (Late st Contact Info) Description 09/11/2025 1:00 PM EST Appointment [facility]A [address] [address] 09/11/2025 1:45 PM EST Office Visit [facility] [address] [place] [address] Collin Bennett DO [address] [facility] [address] [place] [address] documented as of this encounter Visit Diagnoses Not on filedocumented in this encounter Care Teams Quality Control Tester Relationship Specialty Start Date End Date Tanner Mcdonnell MD [address] [place], [place] [id number] PCP - General Internal Medicine 03/10/25 documented as of this encounter
--- OUTSIDE RECORDS SUMMARY | 2025-04-30 10:01 | XMS_ITS | Clinical Summary ---
Author Organization [facility] Address [address] [place] [address] Care Team Providers Care Plastic Outfitter Name Role Phone Tanner Mcdonnell MD Primary Care Provide r Allergies Active Allergy Reactions Criticality Noted Date Comments Propoxyphene Swelling Medium 07/01/2009 Morphine Swelling Medium 12/12/2018 Other Rash Low 04/21/2019 Flu shot Thimerosal Hives Low 03/12/2024 Medications citalopram (CeleXA) 20 MG tablet Take 0.5 tablets by mouth Every Morning. 12/11/19 19 Active omeprazole (priLOSEC) 20 MG capsule Take 1 capsule by mouth Every Morning. 12/11/19 19 Active losartan (COZAAR) 100 MG tablet losartan 100 mg tablet Take 1 tablet every day by oral route. Active buPROPion SR (WELLBUTRIN SR) 150 MG 12 hr tablet TAKE 1 TABLET BY MOUTH ONCE DAILY IN THE MORNING FOR DEPRESSION 03/08/20 22 Active Multiple Minerals-Vitamins (CITRACAL PLUS PO) Take by mouth. Active atorvastatin (LIPITOR) 40 MG tablet Take 1 tablet by mouth Daily. Active multivitamin with minerals (CENTRUM SILVER 50+WOMEN PO) Take 1 tablet by mouth Daily. Once daily-8mg [id number] mcg Active clobetasol propionate (TEMOVATE) 0.05 % cream Apply 1 Application topically to the appropriate area as directed. 03/31/20 24 Active meclizine (ANTIVERT) 25 MG tablet Take 1 tablet by mouth As Needed. 03/31/20 Active metoprolol succinate XL (TOPROL-XL) 25 MG 24 hr tablet Take 1 tablet by mouth Daily. 12/10/19 24 Active triamcinolone (KENALOG) 0.025 % cream Apply 1 Application topically to the appropriate area as directed. 05/13/20 24 Active Cholecalciferol 100 MCG (4000 UT) capsule Take by mouth. Activ e Eliquis 5 MG tablet tablet Take 1 tablet by mouth Every 12 (Twelve) Hours. 11/04/19 25 Active gabapentin (NEURONTIN) 100 MG capsuleIndications :Primary osteoarthritis involving multiple joints,Fibromyalgi a,Encounter for therapeutic drug monitoring Take 1 capsule by mouth 3 (Three) Times a Day. 270 capsule 1 03/10/20 25 Active Active Problems Problem Noted Date Diagnosed Date Encounter for therapeutic drug monitoring 2023 Assessment & Plan (03/10/2025 10:27 AM EDT): * Gabapentin 100 mg PO TID For neuropathic pain/fibromyalgia * Controlled substance agreement signed 05/27/24 Check SAMREEN and Drug screen as required. Drug screen ordered today Assessment & Plan (05/27/2024 12:11 PM EDT): * Gabapentin 100 mg PO TID For neuropathic pain/fibromyalgia * Controlled substance agreement signed 02/15/23 Check SAMREEN and Drug screen as required. Drug screen ordered today Osteoarthritis 05/23/2024 Assessment & Plan (03/10/2025 10:27 AM EDT): * Medications/treatments/interventions tried include: Tylenol, gabapentin, Aleve, Tumeric, she has done physical therapy, she saw an orthopaedic surgeon, she has had knee replacement surgery, Citalopram, Back injection, she has seen a paint maker 1. Tylenol PRN is ok as directed [...] specialists 10. She had a back injection Assessment & Plan (05/27/2024 12:11 PM EDT): * Medications/treatments/interventions tried include: Tylenol, gabapentin, Aleve, Tumeric, she has done physical therapy, she saw an orthopaedic surgeon, she has had knee replacement surgery, Citalopram, Back injection, she has seen a paint maker 1. Tylenol PRN is ok as directed [...] 10. She had a back injection Fibromyalgia 05/23/2024 Assessment & Plan (03/10/2025 10:27 AM EDT): 1. H & P consistent with this [...] 9. She has done some physical therapy Assessment & Plan (05/27/2024 12:11 PM EDT): 1. H & P consistent with this diagnosis. 2. Encourage aerobic activity and sleep hygiene. 3. If she has not had a sleep study/consultation consider getting this done. 4. Handout on fibromyalgia given to her to take home and review. 5. Tylenol PRN is ok as directed 6. Continue gabapentin/refill today. 05/23/23 we offered to increase her dosage. She declined 7. She has taken citalopram 8. She has tried NSAIDS like Aleve PRN 9. She has done some physical therapy OA (osteoarthritis) of knee 04/21/2019 Primary osteoarthritis of right knee 03/18/2019 Overview (03/18/2019): Added automatically from request for surgery [id number] Encounters Date Type Department Care Team Description 03/10/2025 9:45 AM EDT Office Visit [facility] [address] [place] [address] Collin Bennett DO Primary osteoarthritis involving multiple joints (Primary Dx); Fibromyalgia; Encounter for therapeutic drug monitoring; Postmenopause 03/10/2025 Travel from Last 3 Months Family History Medical History Relation Name Comments Lung cancer Father cause of Diabetes Mother Hypertension Mother Asthma Sister Breast cancer Sister Multiple myeloma Sister cause of de ath Malig Hyperthermia Neg Hx Relation Name Status Comments Father Mother Sister Social History Tobacco Use Types Packs/Day Years [...] not to disclose 2024 10:02 AM EDT Last Filed Vital Signs Vital Sign Reading Time Taken Comments Blood Pressure 132/72 03/10/2025 10:06 AM EDT Pulse 68 03/10/2025 10:06 AM EDT Temperature 36.1 C (97 F) 03/10/2025 10:06 AM EDT Respiratory Rate 16 04/22/2019 11:37 AM EDT Oxygen Saturation 98% 04/22/2019 11:37 AM EDT Inhaled Oxygen Concentration - - Weight 55.5 kg (122 lb 6.4 oz) 03/10/2025 10:06 AM EDT Height 152.4 cm (5') 03/10/2025 10:06 AM EDT Body Mass Index 23.9 03/10/2025 10:06 AM EDT Plan of Treatment Upcoming Encounters Date Type Department Care Team (Late st Contact Info) Description 09/11/2025 1:00 PM EST Appointment [facility] [address] [place] [address] 09/11/2025 1:45 PM EST Office Visit [facility] RHEUM[facility] [address] [address] Collin Bennett DO [address] [id number] Health Maintenance Due Date Last Done Comments DXA SCAN 1945 Pneumococcal Vaccine 50+ (1 of 1 - PCV) 1995 ZOSTER VACCINE (1 of 2) 1995 ANNUAL WELLNESS VISIT 12/12/2018 HEPATITIS C SCREENING 12/12/2018 RSV Vaccine - Adults (1 - 1- dose 75+ series) 2020 COVID-19 Vaccine (2023-2 5 season) 2024 06/13/2024, 07/25/2023, 09/13/2022, Additional history exists INFLUENZA VACCINE 07/08/2025 TDAP/TD VACCINES (2 - Td or Tdap) 01/18/2033 023 MAMMOGRAM Discontinued 03/21/2023, 03/08, 03/20/2022, Additional history exists Medical Devices Implanted Type Area Competitive Intelligence Manager Device Identifier Shelf Expiration Date Model / Serial / Lot Implant Implant Left: Knee Cmt Bone Palacos R Hi/Visc 1x40 - [id number] Implanted:Qty: 1 on 04/21/2019 by Yevgeniy Leonard MD at [facility] Implant Right: Knee [employer] [id number] 11/07/2022 [id number] / / [id number] Comp Fem/Kn Legion Oxinium Ps Sz3 Rt - [id number] Implanted:Qty: 1 on 04/21/2019 by Yevgeniy Leonard MD at [facility] Implant Right: Knee [employer] [id number] 12/06/2028 [id number] / / [id number] Base Tib/Kn Gen2 Nonpor Ti Sz2 Rt - [id number] Implanted:Qty: 1 on 04/21/2019 by Yevgeniy Leonard MD at [facility] Implant Right: Knee [employer] [id number] 02/08/2029 [id number] / / [id number] Pat Gen2 Biconvex 78b31lt - [id number] Implanted:Qty: 1 on 04/21/2019 by Yevgeniy Leonard MD at [facility] Implant Right: Knee [employer] [id number] 02/16/2029 [id number] / / [id number] Insrt Tib Flx Hi Gen2 Ps Sz1to2 15mm - [id number] Implanted:Qty: 1 on 04/21/2019 by Yevgeniy Leonard MD at [facility] Implant Right: Knee [employer] [id number] 03/31/2028 [id number] / / [id number] Totl Kn Martin Shaw Nephew - [id number] Implanted:Qty: 1 on 04/21/2019 by Yevgeniy Leonard MD at [facility] Implant Right: Knee [employer] [id number] / / Insurance MEDICARE A & B Member Subscriber Plan / Payer (Ef fective 2010-Present) Name:Sarah Hansen Member ID:[id number] Relation to Subscriber:Self Name:Sarah Hansen Subscriber ID:[id number] Payer ID:[id number] Group ID:Not on file Type:Not on file Address: [facility] [id number] [employer] [place] [address] Advance Directives * CPR (Attempt to Resuscitate) (Latest Code Status on File) Date Activated Date Inactivated Comments 04/21/2019 4:33 PM 04/22/2019 5:03 PM Question Answer Comments Code Status (Patient has no pulse and is not breathing): CPR (Attempt to Resuscitate) Medical Interventions (Patie nt has pulse or is breathing): Full Level Of Support Discussed With: Patient Care Teams Plastic Outfitter Relationship Specialty Start Date End Date Tanner Mcdonnell MD [address] [place] [address] PCP - General Internal Medicine 03/10/25
--- OUTSIDE RECORDS SUMMARY | 2025-04-30 10:01 | XMS_ITS | Clinical Summary ---
Author Organization [employer] ([place], [place], [place], [place]) Address [address] [place] [address] Care Team Providers Care Rn Review Name Role Phone Jeancarlos Santizo MD Unavailable [phone] Tanner Mcdonnell MD Primary Care Provide r Encounters Date Type Department Care Team Description 04/09/2025 10:56 AM EDT - 04/09/2025 11:59 PM EDT Hospital Encounter [facility] Breast [address] [place] [phone] Tanner Mcdonnell MD Screening for breast cancer Discharge Disposition: Home or Self Care 04/09/2025 Outside Orders [address] [place] [phone] Tanner Mcdonnell MD Visit for screening mammogram (Primary Dx) 04/09/2025 Travel from Last 3 Months Social History Tobacco Use Types Packs/Day Years [...] Date Joe rded Speak language other than Chinese at home Not on file 10/26/2023 Want [...] PM CDT Sexual Orientation Not on file Last Filed Vital Signs Vital Sign Reading Time Taken Comments Blood Pressure - - Pulse - - Temperature - - Respiratory Rate - - Oxygen Saturation - - Inhaled Oxygen Concentration - - Weight 55.8 kg (123 lb) 04/09/2025 11:10 AM EDT Height 149.9 cm (4' 11 ) 04/09/2025 11:10 AM EDT Body Mass Index 24.84 04/09/2025 11:10 AM EDT Plan of Treatment Upcoming Encounters Date Type Department Care Team (Late st Contact Info) Description 04/14/2026 11:45 AM EDT Appointment [address] [phone] Health Maintenance Due Date Last Done Comments DXA SCAN 1945 Depression Screening (12+) 1957 Tobacco Cessation Counseling and Screening (12+) 1957 Hepatitis C Screening 1963 Pneumococcal 50+ years (1 of 1 - PCV) 1995 Shingles Vaccine (Zoster) (1 of 2) 1995 Medicare Initial AWV G0438 08/09/2011 Respiratory Syncytial Virus (RSV) Adult or (1 - 1-dose 75+ series) 2020 Falls Risk Screening 10/08/2024 COVID-19 VACCINE (2023-2 5 season) 2024 06/13/2024, 07/25/2023, 09/13/2022, Additional history exists Influenza Vaccine (#1) 2025 DTAP/TDAP/TD VACCINES (2 - T d or Tdap) 01/18/2033 01/18/2023 Procedures Procedure Name Priority Date/Time Associated Diagnosis Comments MM DIGITAL MAMMO SCREEN WITH CECILIA BILATERAL Routine 04/09/2025 11:13 AM EDT Screening for breast cancer from Last 3 Months Results * MM digital mammo screen with [...] MD IMG MAMMOGRAPHY ORDER [place] Final Result from Last 3 Months Insurance GENERIC COMMERCIAL MEDICARE PART A B Care Teams Rn Review Relationship Specialty Start Date End Date Tanner Mcdonnell MD [address] [place] [address] PCP - General Internal Medicine 04/09/25 Jeancarlos Santizo MD [address] [place] [id number] Referring Physician General Internal Medicine 03/21/23
--- OUTSIDE RECORDS SUMMARY | 2025-04-30 10:01 | XMS_ITS | Encounter Summary ---
Author Organization [employer] ([place], [place], [place], [place]) Address [address] [place] [address] Care Team Providers Care Functional Mental Disability Teacher Name Role Phone Jeancarlos Santizo MD Unavailable [phone] Tanner Mcdonnell MD Primary Care Provide r Encounter Details Date Type Department Care Team (Latest Contact Info) Description 04/09/2025 Travel Social History Tobacco Use Types Packs/Day [...] Date Joe rded Speak language other than [place] at home Not on file 10/26/2023 Want [...] Upcoming Encounters Date Type Department Care Team ( Contact Info) Description 04/14/2026 11:45 AM EDT Appointment [address] [place] [phone] documented as of this encounter Visit Diagnoses Not on filedocumented in this encounter Care Teams Functional Mental Disability Teacher Relationship Specialty Start Date End Date Tanner Mcdonnell MD [address] [place] [address] PCP - General Internal Medicine 04/09/25 Jeancarlos Santizo MD [address] [facility] [address] [place] [address] Referring Physician General Internal Medicine 03/21/23 documented as of this encounter
--- OUTSIDE RECORDS SUMMARY | 2025-04-30 10:01 | XMS_ITS | Data Portability ---
Author Organization [facility] EMMA Lui JEFFERSON CLOSED Address [address] [place] [address] Care Team Providers Care Psychiatric Aide Name Role Phone TANNER HERNANDEZ Primary Care Provider Assessment Encounter Date Assessment Date Assessment LastModified by Organization Details LastModified Time 05/13/2024 05/13/2024 Follow up annually [email or web address] Not available 05/13/2024 10:10:14 02/05/2025 02/05/2025 79 year old female with fibromyalgia, HTN, HLD, GERD, history of PE, osteopenia, anxiety here to establish care with PCP. [email or web address] Not available 02/05/2025 15:34:25 03/12/2025 03/12/2025 79 year old female with fibromyalgia, hypertension, hyperlipidemi a, GERD, history of PE, osteopenia, anxiety, chronic vertigo/dizzi ness, history of total hysterectomy, history of bilateral total knee replacement. Today, she presents for her Medicare wellness exam along with management of multiple chronic conditions [email or web address] Not available 03/12/2025 06:58:35 Plan of Treatment Reminders Order Date Submit Date Provider Last Modified By Organization Details Last Modified Time Details Appointments DERMATOLO GY VISIT 2024 09:30A M GABRIELLE BOCANEGRA MD Not available Not available Not available RECHECK 2024 11:30A M TANNER HERNANDEZ MD Not available Not available Not available Lab vitamin B12 + folate, serum or blood 2024 025 [facility], [address] [place] [address], [id number], 02/05/2025 16:14:15 lipid panel, serum 2024 025 [facility] [address] [place] [address], [id number], 02/05/2025 16:09:39 CBC w/ auto diff 2024 025 [facility] [address] [place] [address], [phone], 02/05/2025 15:53:04 CMP, serum or plasma 2024 025 [facility] [address] [place] [address], [address], 02/05/2025 16:09:41 glycohemo globin, total, blood 2024 025 [facility] [address] [place] [address], [address], 02/05/2025 16:04:00 urinalysi s, complete 2024 025 [facility] [address] [place] [address], [id number], 02/05/2025 17:29:22 TSH, serum, reflex free T4 2024 025 [facility] [address] [place] [address], [phone], 02/05/2025 16:05:22 Referral otolaryng ologist referral 2024 025 [email or web address] Elkin Gregory MD, [address] [place] [address], [phone], 02/05/2025 14:08:53 Procedures None recorded. Surgeries None recorded. Imaging MAMMO, screening , tomosynth esis, bilateral , w/ CAD 2024 025 [email or web address] [facility], [address], [place], [address], 03/26/2025 07:38:35 Medication Orders atorvasta tin 80 mg tablet 2024 025 [facility], [address] , [place], [address], 03/12/2025 14:51:19 omeprazol e 20 mg capsule,d elayed release 2024 025 [facility], [address], [place], [address], 03/12/2025 14:51:21 losartan 100 mg tablet 2024 025 [facility], [address], [place], [address], 03/12/2025 14:51:21 metoprolo l succinate ER 25 mg tablet,ex tended release 24 hr 2024 025 [facility], [address], [place], [address], 03/12/2025 14:51:23 citalopra m 20 mg tablet 2024 025 [facility], [address] , [place], [address], 03/12/2025 14:51:23 bupropion HCl 150 mg tablet,12 hr sustained -release( smoking deterrent ) 2024 025 [facility], [address], [place], [address], 03/12/2025 14:51:19 triamcino lone acetonide 0.025 % topical cream 2023 024 [email or web address] [id number], [address], [phone], 05/13/2024 13:18:40 Patient TargetsNo targets recorded. Patient Instructions Encounter Date Encounter Id Patient Instructions Last Modified By Organization Details Last Modified Time 05/13/2024 [id number] Education: We discussed the potential diagnostic options, options for further evaluation and treatments, and the risks and benefits of each. Not available 05/13/2024 07:58:17 02/05/2025 [id number] Follow up in 1 month for recheck (possible medicare wellness exam). Will take over rx at this time [email or web address] Not available 02/05/2025 13:55:54 03/12/2025 [id number] Your Screening Plan: 1. Colon Cancer Screening: Not Indicated - Last completed Due 2. Cervical Cancer Screening: Not Indicated - Last completed Due 3. Breast Cancer Screening: Mammogram - Last completed 04/08/2024 Due 04/2025 4. Lung Cancer Screening (Smokers only): Not Indicated - Last completed Due 5. Bone Density Screening: DEXA - Last completed 04/14/2024 Due 04/2026 6. 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 Referring Physician: Tanner Hernandez, Internal Medicine, Encounter Date: 02/05/2025 Results Created Date Observation Date Name Description Value Unit Range Abnormal Flag Note LastModifiedBy Organization Detail LastModifiedTime 02/06/2002/05/2025 COMPL ETE BLOOD COUNT white blood cells 8.2 10*3/ uL 3.8-10 .8 normal Not Available [facility] [address] [place], [address], 02/05/2025 15:53:04 02/06/20 25 02/05/2025 COMPL ETE BLOOD COUNT red blood cells 4.50 10*6/ uL 3.80-5 .20 normal Not Available [facility] [address] [place] [address], [phone], 02/05/2025 15:53:04 02/06/20 25 02/05/2025 COMPL ETE BLOOD COUNT hemoglobin 13.2 g/dL 12.0-1 6.0 normal Not Available [facility] [address] [place] [address], [address], 02/05/2025 15:53:04 02/06/20 25 02/05/2025 COMPL ETE BLOOD COUNT hematocrit 37.4 % 35.0-4 7.0 normal Not Available [facility] [address] [place] [address], [address], 02/05/2025 15:53:04 02/06/20 25 02/05/2025 COMPL ETE BLOOD COUNT MCV 83 fL 80-100 normal Not Available [facility] [address] [place] [address], [address], 02/05/2025 15:53:04 02/06/20 25 02/05/2025 COMPL ETE BLOOD COUNT MCH 29 pg 26-35 normal Not Available [facility] [address] [place] [address], [address], 02/05/2025 15:53:04 02/06/20 25 02/05/2025 COMPL ETE BLOOD COUNT MCHC 35 g/dL 32-36 normal Not Available [facility] [address] [place] [address], [address], 02/05/2025 15:53:04 02/06/20 25 02/05/2025 COMPL ETE BLOOD COUNT RDW 13.9 % 11.0-1 5.0 normal Not Available [facility] [address] [place] [address], [address], 02/05/2025 15:53:04 02/06/20 25 02/05/2025 COMPL ETE BLOOD COUNT MPV 8.5 fL 6.2-10 .5 normal Not Available [facility] [address] [place] [address], [address], 02/05/2025 15:53:04 02/06/20 25 02/05/2025 COMPL ETE BLOOD COUNT platelet count 237 10*3/ uL 150-40 0 normal Not Available [facility] [address] [place] [address], [address], 02/05/2025 15:53:04 02/06/20 25 02/05/2025 COMPL ETE BLOOD COUNT neutrophil,a bsolute 4.0 10*3/ uL 1.6-8. 4 normal Not Available [facility] [address] [place] [address], [address], 02/05/2025 15:53:04 02/06/20 25 02/05/2025 COMPL ETE BLOOD COUNT lymphocyte,a bsolute 2.9 10*3/ uL 0.4-5. 1 normal Not Available [facility] [address] [place] [address], [address], 02/05/2025 15:53:04 02/06/20 25 02/05/2025 COMPL ETE BLOOD COUNT monocyte,abs olute 1.0 10*3/ uL 0.0-1. 2 normal Not Available [facility] [address] [place] [address], [address], 02/05/2025 15:53:04 02/06/20 25 02/05/2025 COMPL ETE BLOOD COUNT eosinophil,a bsolute 0.2 10*3/ uL 0.0-0. 8 normal Not Available [facility] [address] [place] [address], [address], 02/05/2025 15:53:04 02/06/20 25 02/05/2025 COMPL ETE BLOOD COUNT basophil,abs olute 0.1 10*3/ uL 0.0-0. 3 normal Not Available [facility] [address] [place] [address], [address], 02/05/2025 15:53:04 02/06/20 25 02/05/2025 COMPL ETE BLOOD COUNT % neutrophils 48.4 % 42.0-7 8.0 normal Not Available [facility] [address] [place] [address], [address], 02/05/2025 15:53:04 02/06/20 25 02/05/2025 COMPL ETE BLOOD COUNT % lymphocytes 35.8 % 11.0-4 7.0 normal Not Available [facility] [address] [place] [address], [address], 02/05/2025 15:53:04 02/06/20 25 02/05/2025 COMPL ETE BLOOD COUNT % monocytes 12.5 % 0.0-11 .0 high Not Available [facility] [address] [place] [address], [address], 02/05/2025 15:53:04 02/06/20 25 02/05/2025 COMPL ETE BLOOD COUNT % eosinophils 2.5 % 0.0-7. 0 normal Not Available [facility] [address] [place] [address], [address], 02/05/2025 15:53:04 02/06/20 25 02/05/2025 COMPL ETE BLOOD COUNT % basophils 0.8 % 0.0-3. 0 normal Not Available [facility] [address] [place] [address], [address], 02/05/2025 15:53:04 02/06/20 25 02/05/2025 COMPL ETE BLOOD COUNT nucleated red cells 0.0 % 0.0-0. 9 normal Not Available [facility] [address] [place] [address], [address], 02/05/2025 15:53:04 02/06/20 25 02/05/2025 COMPL ETE BLOOD COUNT nucleated RBCs, absolute 0.00 10*3/ uL not estab. normal Not Available [facility] [address] [place] [address], [address], 02/05/2025 15:53:04 02/06/20 25 02/05/2025 GLYCO HEMOG LOBIN A1C glyco HGB A1C 5.6 % 0.0-5. 6 normal Not Available [facility] [address] [place] [address], [address], 02/05/2025 16:04:00 02/06/20 25 02/05/2025 GLYCO HEMOG LOBIN A1C estimated avg. glucose 114 mg/dL _(wiliam c) normal A1c value s betwe en 5.7% to 6.4% indic ate predi abete s. Resul ts 6.5% or great er is diagn ostic of diabe rose. Ameri can Diabe rose Ass[employer] iatio n (diab etes. org) Not Available [facility] [address] [place] [address], [address], 02/05/2025 16:04:00 02/06/20 25 02/05/2025 TSH WITH REFLE X FT4 TSH with reflex FT4 1.500 u[IU] /mL 0.270- 4.200 normal Not Available [facility] [address] [place] [address], [address], 02/05/2025 16:05:22 02/06/20 25 02/05/2025 LIPID PROFI LE HDL cholesterol 50 mg/dL 50-242 normal Not Available [facility] [address] [place], [address], 02/05/2025 16:09:39 02/06/20 25 02/05/2025 LIPID PROFI LE triglyceride s 117 mg/dL 0-149 normal TRIGL YCERI DE RANGE S DORINDA L: < 150 BORDE RLINE HIGH: 150 - 199 HIGH: 200 - 499 VERY HIGH: > OR = 500 Not Available [facility] [address] [place] [address], [address], 02/05/2025 16:09:39 02/06/20 25 02/05/2025 LIPID PROFI LE cholesterol 136 mg/dL 0-199 normal RHONDA STERO L (TOTA L) RANGE S BRITTANY ABLE: < 200 BORDE RLINE : 200 - 239 HIGHE R RISK: > 239 Not Available [facility] [address] [place] [address], [address], 02/05/2025 16:09:39 02/06/20 25 02/05/2025 LIPID PROFI LE LDL cholesterol 63 mg/dL _(wiliam c) 0-99 normal LDL RHONDA STERO L RANGE S OPTIM AL: < 100 NEAR/ ABOVE OPTIM AL: 100 - 129 BORDE RLINE HIGH: 130 - 159 HIGH: 160 - 189 VERY HIGH: > OR = 190 Not Available [facility] [address] [place] [address], [address], 02/05/2025 16:09:39 02/06/20 25 02/05/2025 LIPID PROFI LE chol/HDL ratio (calc) 2.7 mg/dL normal NO DORINDA L RANGE ESTAB LISHE D FOR RHONDA STERO L/HDL RATIO (CALC ULATE D). Not Available [facility] [address] [place] [address], [address], 02/05/2025 16:09:39 02/06/20 25 02/05/2025 COMP. METAB OLIC PANEL glucose 108 mg/dL 74-100 high Not Available [facility] [address] [place] [address], [address], 02/05/2025 16:09:41 02/06/20 25 02/05/2025 COMP. METAB OLIC PANEL blood urea nitrogen 12 mg/dL 6-20 normal Not Available [facility] [address] [place] [address], [address], 02/05/2025 16:09:41 02/06/20 25 02/05/2025 COMP. METAB OLIC PANEL creatinine 0.58 mg/dL 0.50-0 .95 normal Not Available [facility] [address] [place] [address], [address], 02/05/2025 16:09:41 02/06/20 25 02/05/2025 COMP. METAB OLIC PANEL BUN/creatini ne ratio 21 (calc ) 10-20 high Not Available [facility] [address] [place] [address], [address], 02/05/2025 16:09:41 02/06/20 25 02/05/2025 COMP. METAB OLIC PANEL sodium 141 mmol/ L 136-14 5 normal Not Available [facility] [address] [place] [address], [address], 02/05/2025 16:09:41 02/06/20 25 02/05/2025 COMP. METAB OLIC PANEL potassium 4.0 mmol/ L 3.4-5. 0 normal Not Available [facility] [address] [place] [address], [address], 02/05/2025 16:09:41 02/06/20 25 02/05/2025 COMP. METAB OLIC PANEL chloride 104 mmol/ L 98-107 normal Not Available [facility] [address] [place] [address], [address], 02/05/2025 16:09:41 02/06/20 25 02/05/2025 COMP. METAB OLIC PANEL carbon dioxide 24 mmol/ L 22-31 normal Not Available [facility] [address] [place] [address], [address], 02/05/2025 16:09:41 02/06/20 25 02/05/2025 COMP. METAB OLIC PANEL anion gap 13 (calc ) 7-25 normal Not Available [facility] [address] [place] [address], [address], 02/05/2025 16:09:41 02/06/20 25 02/05/2025 COMP. METAB OLIC PANEL calcium 9.4 mg/dL 8.6-10 .2 normal Not Available [facility] [address] [place] [address], [address], 02/05/2025 16:09:41 02/06/20 25 02/05/2025 COMP. METAB OLIC PANEL total protein 7.1 g/dL 6.4-8. 3 normal Not Available [facility] [address] [place] [address], [address], 02/05/2025 16:09:41 02/06/20 25 02/05/2025 COMP. METAB OLIC PANEL albumin 4.1 g/dL 3.5-5. 2 normal Not Available [facility] [address] [place] [address], [address], 02/05/2025 16:09:41 02/06/20 25 02/05/2025 COMP. METAB OLIC PANEL globulin 3.0 1.5-4. 5 normal Not Available [facility] [address] [place] [address], [address], 02/05/2025 16:09:41 02/06/20 25 02/05/2025 COMP. METAB OLIC PANEL albumin/glob ulin ratio 1.4 (calc ) 1.1-2. 5 normal Not Available [facility] [address] [place] [address], [address], 02/05/2025 16:09:41 02/06/20 25 02/05/2025 COMP. METAB OLIC PANEL bilirubin, total 0.7 mg/dL 0.1-1. 2 normal Not Available [facility] [address] [place] [address], [address], 02/05/2025 16:09:41 02/06/20 25 02/05/2025 COMP. METAB OLIC PANEL alkaline phosphatase 114 U/L 30-121 normal Not Available [facility] [address] [place] [address], [address], 02/05/2025 16:09:41 02/06/20 25 02/05/2025 COMP. METAB OLIC PANEL AST 26 U/L 0-32 normal Not Available [facility] [address] [place] [address], [address], 02/05/2025 16:09:41 02/06/20 25 02/05/2025 COMP. METAB OLIC PANEL ALT 23 U/L 0-33 normal Not Available [facility] [address] [place], [address], 02/05/2025 16:09:41 02/06/20 25 02/05/2025 COMP. METAB OLIC PANEL GFR 92 >= 60 normal NOT E New calcu latio n for GFR (CKD- EPI 2020) is formu lated witho ut race adjus tment facto rs at the recom menda tion of the [employer] small[place] and Dayana [employer]oom[employer] of Nephr ology . This calcu latio n has not been valid ated in pregn ant women . For pedia tric patie nts refer to https ://rafa terry.antolin mcrae/eleni delgadillo s/ANU QI/gf r_cal culat orPed Not Available [facility] [address] [place] [address], [address], 02/05/2025 16:09:41 02/06/20 25 02/05/2025 B12/F OLIC ACID PANEL folic acid 13.4 NG/mL 4.6-34 .8 normal Not Available [facility] [address] [place], [address], 02/05/2025 16:14:15 02/06/20 25 02/05/2025 B12/F OLIC ACID PANEL vitamin B12 946 pg/mL 232-12 45 normal Not Available [facility] [address] [place] [address], [address], 02/05/2025 16:14:15 02/06/20 25 02/05/2025 URINA LYSIS color YELLOW normal Not Available [facility] [address] [place] [address], [address], 02/05/2025 17:29:22 02/06/20 25 02/05/2025 URINA LYSIS appearance CLEAR normal Not Available [facility] [address] [place] [address], [address], 02/05/2025 17:29:22 02/06/20 25 02/05/2025 URINA LYSIS glucose NORMAL mg/dL normal normal Not Available [facility] [address] [place] [address], [address], 02/05/2025 17:29:22 02/06/20 25 02/05/2025 URINA LYSIS bilirubin NEGATI VE mg/dL negati ve normal Not Available [facility] [address] [place] [address], [address], 02/05/2025 17:29:22 02/06/20 25 02/05/2025 URINA LYSIS ketone NEGATI VE mg/dL negati ve normal Not Available [facility] [address] [place] [address], [address], 02/05/2025 17:29:22 02/06/20 25 02/05/2025 URINA LYSIS specific gravity 1.015 1.003- 1.035 normal Not Available [facility] [address] [place] [address], [address], 02/05/2025 17:29:22 02/06/20 25 02/05/2025 URINA LYSIS blood 25 /uL negati ve abnormal Not Available [facility] [address] [place] [address], [address], 02/05/2025 17:29:22 02/06/20 25 02/05/2025 URINA LYSIS pH 6 5.0 - 8.0 normal Not Available [facility] [address] [place] [address], [address], 02/05/2025 17:29:22 02/06/20 25 02/05/2025 URINA LYSIS protein 15 mg/dL negati ve abnormal Not Available [facility] [address] [place] [address], [address], 02/05/2025 17:29:22 02/06/20 25 02/05/2025 URINA LYSIS urobilinogen NORMAL mg/dL normal normal Not Available [facility] [address] [place] [address], [address], 02/05/2025 17:29:22 02/06/20 25 02/05/2025 URINA LYSIS nitrite NEGATI VE negati ve normal Not Available [facility] [address] [place] [address], [address], 02/05/2025 17:29:22 02/06/20 25 02/05/2025 URINA LYSIS leukocyte esterase 100 /uL negati ve abnormal Pleas e advis e if cultu re is brittany ed - notif y the lab at [phone]. Not Available [facility] [address] [place] [address], [address], 02/05/2025 17:29:22 02/06/20 25 02/05/2025 URINA LYSIS WBC, urine TNTC 0-5/hp f abnormal Occ. WBC clump s noted . Not Available [facility] [address] [place] [address], [address], 02/05/2025 17:29:22 02/06/20 25 02/05/2025 URINA LYSIS squamous epi. cells 0-5 0-5/hp f normal Not Available [facility] [address] [place] [address], [address], 02/05/2025 17:29:22 04/15/20 24 04/08/2024 MAMMO , scree jayjay, tomos ynthe sis, bilat eral, w/ CAD [place] [address] [place] [address] Eduin lee Name: AYSHA lee : 1944 Age: 78 years Eduin lee Orderi ng Provid er: MARIA LUISA Jame RO JR EXAM DATE: 2023 EXAM: MG [...] were mailed or given to the eduin ele. Interp reted By: Wayne Frederick MD Electr onical ly Signed By: Wayne Frederick MD on 04/15/20 24 1:30 PM [email or web address] [facility] [address] , [place], [address], 04/15/2024 13:43:14 02/26/20 25 02/24/2025 audio gram No observ ation record ed. [email or web address] Not Available 02/2025 14:45:24 03/18/20 25 03/18/2025 imagi ng/di agnos tic resul t No observ ation record ed. MARY Not Available 2024 11:03:46 04/12/20 25 04/09/2025 MAMMO , scree jayjay, tomos ynthe sis, bilat eral, w/ CAD No observ ation record ed. MARY [facility] [address], [place], [address], 04/19/2025 16:08:06 Result Notes None recorded. Problems Name Problem SNOMED Code Status Onset Date Resolution Date Notes Provider Name and Address Organization Details Recorded Time Essential hypertension 51617600 Active 2024 TANNER HERNANDEZ MD [address] [place] [address], [address], [facility] 07:01:53 Anxiety 83472422 Active 2024 TANNER HERNANDEZ MD [address] [place] [address], [address], [facility] 07:01:54 Mixed hyperlipidemia 243265809 Active 2024 TANNER HERNANDEZ MD [address] [place] [address], [address], [facility] 07:01:59 Primary fibromyalgia syndrome 88355693 Active 2024 TANNER HERNANDEZ MD [address] [place] [address], [address], [facility] 07:02:02 Osteopenia 469840304 Active 2024 TANNER HERNANDEZ MD [address] [place] [address], [address] 1, [facility] 07:02:04 History of pulmonary embolus 882541705 Active 2024 TANNER HERNANDEZ MD [address] [place] [address], [address], [facility] 13:32:02 Gastroesophage al reflux disease without esophagitis 012267555 Active 2024 TANNER HERNANDEZ MD [address] [place] [address], [address] 1, [facility] 07:01:56 History of Spinal surgery 750266654 Active 2024 TANNER HERNANDEZ MD [address] [place] [address], [address] 1, [facility] 13:32:06 Memory impairment 696434767 Active 2024 TANNER HERNANDEZ MD [address] [place] [address], [address] 1, [facility] 13:56:21 Adult health examination Active 2024 TANNER HERNANDEZ MD [address] [place] [address], [address] 1, [facility] 13:56:23 Problem Notes Documentation Provider Name and Address Organization Details Recorded Time Feller Operator Consult Not e : [facility] [address] [place] [id number], Darlene G (id #[id number], : 1945) [facility] [address] [place] [phone] Date: 02/24/2025RE: Sarah Hansen, : 1945, PT ID #[id number] Hernandez MD, I would like to thank you for referring Sarah Tyrone to our practice for consultation and evaluation. I have enclosed a copy of the office evaluation for your records. Sincerely, Electronically Signed by: ELKIN GREGORY MDEncounter Reason/DateNone recorded 02/24/2025 - 03:00PM - ENT SB History of Present IllnessRef: [facility] Hernandez [facility] Complaint: DizzinessTiming: Years, worsened over the past [...] be normal. The patient tolerated the procedure well.Ana-Hallpike:Ana-Hallpike Maneuvers Head Right: negative Head Left: negative [...] BOCANEGRA MD for DERMATOLOGY VISIT at [facility] on 05/12/2025 at 09:30 AM TANNER HERNANDEZ MD [address] [place] [address], [address], [facility] 03/12/2025 14:45:25 Procedures Surgical History Date Name Laterality Status Provider Name and Address Organization Details Recorded Time 02/25/20 25 Tympanogram completed TOMMY MYERS, RAIZA-A [address] [place] [address], [address], [facility] 02/24/2025 16:10:49 02/25/20 25 Audiogram completed TOMMY MYERS CCC-Venita [address] [place] [address], [address], [facility] 02/24/2025 16:10:46 02/25/20 25 Ana-Hallpike completed Ana Diggs [facility] 02/24/2025 15:55:23 02/25/20 25 Cerumen removal - Instruments, Bilateral [facility] 15:54:12 01/31/20 22 Destruction Premalignant Lesion(s) completed Eneida Mckeon [facility] 01/30/2022 09:09:33 01/31/20 22 Destruction BN Lesions completed Eneida Mckeon [facility] 01/30/2022 09:09:47 01/31/20 22 Shave Lesion; face, ear, eyelid, nose, lip, muc memb completed GABRIELLE BOCANEGRA MD [address] [place], [address], [facility] 02/03/2022 07:57:17 02/01/20 21 Shave Lesion; trunk, arm, leg completed GABRIELLE BOCANEGRA MD [address] [place], [address] 02/03/2021 21:40:45 02/01/20 21 Destruction Premalignant Lesion(s) completed Silvina Hanna [facility] 01/31/2021 10:52:55 10/12/19 21 Destruction Premalignant Lesion(s) completed GABRIELLE BOCANEGRA MD [address] [place], [address] 10/12/2020 12:54:51 04/16/20 20 Suture/Staple removal completed Silvina [facility] 04/16/2020 10:26:33 04/05/20 20 Excision MN Lesion; trunk, arm, leg completed [facility] 04/05/2020 17:05:37 03/23/20 20 Destruction MN Lesion; trunk, arm, leg completed GABRIELLE BOCANEGRA MD [address] [place], [address] 04/01/2020 22:53:39 03/23/20 20 Destruction Premalignant Lesion(s) completed Silvina [facility] 03/23/2020 11:35:49 01/22/20 18 Destruction Premalignant Lesion(s) completed Silvina [facility] 01/21/2018 10:55:47 Other completed Not Available [employer] 02/05/2025 12:55:10 Total Hysterectomy completed Not Available [employer] 02/05/2025 12:55:10 Back Surgery completed TANNER HERNANDEZ MD [address] [place], [address], [facility] 02/05/2025 13:17:05 Cataract Surgery completed Not Available [employer] 02/05/2025 12:55:10 Cholecystectomy completed Not Available [employer] 02/05/2025 12:55:10 Flexible Sigmoidoscopy completed Not Available [employer] 02/05/2025 12:55:10 Hysterectomy completed Not Available [facility] 02/05/2025 12:55:10 Tonsillectomy completed Not Available [facility] 02/05/2025 12:55:10 total knee replacement completed TANNER HERNANDEZ MD [address] [place], [address], [facility] 02/05/2025 13:18:15 Joint Replacement completed Not Available [facility] 03/12/2025 13:49:12 Knee Surgery completed Not Available [facility] 03/12/2025 13:49:12 Imaging Results None recorded. Procedure Notes None recorded. Medical Equipment None Reported. Allergies Allergen ID Allergen Name Allergen Category Reaction Reaction Severity Criticality Documentation Date Start Date Code Code System Note Provider Name and Address Organization Details Recorded Time 029821 morphine sulfate medicatio n Not available Not available Not available 09/01/20162008 37750 RxNorm Comme nt: Creat ed By: Branden mcmillan;Cr eated Date: 2008 12:22 :34 PM; Not Available [facility] 6 03:16:33 [id number] aspirin / caffeine / propoxyph katherine medicatio n Not available Not available Not available 09/01/20162008 64664 8 RxNorm Comme nt: Creat ed By: Branden mcmillan;Cr eated Date: 2008 12:22 :47 PM; Not Available [facility] 6 05:50:01 [id number] thimerosa l medicatio n Not available Not available Not available 05/13/2024 10436 RxNorm Unabl e to get flu shot [facility] 4 09:48:49 Medications Name Sig Start [...] day by oral route. active rheumato logy- [employer] Not Available Not Available Not Available atorvasta [...] in Arterial blood by Pulse oximetry Systolic And Diastolic Provider Name and Address Organization Details Last Updated DateTime 26545.4 2 g 26.1 kg/m2 149.86 cm 65 /min 98 % 98 % 123/74 mm[Hg] Vanitavenita Mendez [facility] 13:12:58 Date Recorded Body height Body mass index (BMI) Body weight Provider Name and Address Organization Details Last Updated DateTime 02/24/2025 149.86 cm 26.1 kg/m2 07448.42 g Cha Barrientos [facility] 02/24/2025 15:33:24 Date Recorded Body height Body mass index (BMI) Body weight Heart rate Oxygen saturation Oxygen saturation in Arterial blood by Pulse oximetry Systolic And Diastolic Provider Name and Address Organization Details Last Updated DateTime 149.86 cm 26 kg/m2 34409.6 2 g 62 /min 99 % 99 % 130/78 mm[Hg] Harris Shaw [facility] 14:27:13 Social History Question Answer Notes LastModified by Organizat ion Details LastModified Time Tobacco Smoking Status Former Smoker Not Available [employer] 02/05/2025 12:55:10 What Is Your Level Of Caffeine Consumption? Moderate [email or web address] Information not available 02/05/2025 When Did You Quit Smoking? 16+yearssince lastcigarette [email or web address] Information not available 02/05/2025 What Was The Date Of Your Most Recent Tobacco Screening? 03/12/2025 [email or web address] Information not available 03/12/2025 What Is Your [...] mL dose 11/12/2020 completed Jefferina Page null, [facility] 02/05/2025 13:13:02 COVID-19, mRNA, LNP-S, PF, 30 mcg/0.3 mL dose 12/04/2020 completed Jefferina Page null, [facility] 02/05/2025 13:13:02 COVID-19, mRNA, LNP-S, PF, 30 mcg/0.3 mL dose 07/06/2021 completed Jefferina Page null, [facility] 02/05/2025 13:13:02 COVID-19, mRNA, LNP-S, PF, 30 mcg/0.3 mL dose, byron-sucrose 03/21/2022 completed Jefferina Page null, [facility] 02/05/2025 13:13:02 COVID-19, mRNA, LNP-S, PF, 30 mcg/0.3 mL dose, byron-sucrose 06/28/2022 completed Jefferina Page null, [facility] 02/05/2025 13:13:02 COVID-19, mRNA, LNP-S, bivalent, PF, 30 mcg/0.3 mL dose 09/13/2022 completed Jefferina Page null, [facility] 02/05/2025 13:13:02 RSV, recombinant, protein subunit RSVpreF, adjuvant reconstituted, 0.5 mL, PF 07/14/2023 completed Jefferina Page null, [facility] 02/05/2025 13:13:02 COVID-19, mRNA, LNP-S, PF, byron-sucrose, 30 mcg/0.3 mL 07/25/2023 completed Jefferina Page null, [facility] 02/05/2025 13:13:02 Tdap 01/18/2023 completed Jefferina Page null, [facility] 02/05/2025 13:13:02 COVID-19, mRNA, LNP-S, PF, byron-sucrose, 30 mcg/0.3 mL 06/13/2024 completed TANNER HERNANDEZ MD [address] [place] [address], [address], [facility] 03/12/2025 06:58:52 Past Encounters Encounter ID Performer Location Encounter Start Date Encounter Closed Date Diagnosis/Indication Diagnosis SNOMED-CT Code Diagnosis ICD10 Code Diagnosis Note [id number] MD CIRO VILLASE[facility]OR [place] [address] [place] [address] 11/14/2016 08:52:52 11/14/2016 09:58:05 History of malignant basal cell neoplasm of skin 264419555 Z85.828 Status post BCC on left dorsal forearm - doing well Lentigo 823161438 L81.4 reassuranc e 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 worsening, Avodart was helpful but ins wont cover this so she has elected to wear a wig Hemangioma 936340719 D18 .00 reassuranc e [id number] MD CIRO VILLASE[facility] [place] [facility] [place] [address] [place] [address] 11/26/2017 11:32:45 11/26/2017 13:56:55 History of malignant basal cell neoplasm of skin 412183928 Z85.828 Status post BCC on left dorsal forearm - doing well [place] 950915549 L81.4 reassuranc e Postmenopa usal frontal fibrosing alopecia 510499493 L66.1 Avodart was helpful but ins wont cover this so she has elected to wear a wig Actinic keratosis 007 L57.0 Contact dermatitis 44062 004 L25.9 prob clothing related, using Tide clear Hold on patch tests for now. [id number] MD [facility] [place] [address] [place] [address] 01/21/2018 10:21:16 01/21/2018 13:19:04 History of malignant basal cell neoplasm of skin 293242688 Z85.828 Status post BCC on left dorsal forearm - doing well Lentigo 388805089 L81.4 reassuranc e Actinic keratosis 934664 [address] x 1 [id number] MD [facility] [place] [address] [place] [address] 01/27/2019 10:35:58 01/27/2019 12:32:12 History of malignant basal cell neoplasm of skin 166094634 Z85.828 Status post BCC on left dorsal forearm - doing well Lentigo 391769688 L81.4 Reassuranc e and education regarding the disorder and options. Erythema of skin 2250909 08 L53.9 Reassuranc e and education regarding the disorder and options. Neoplasm o f uncertain behavior of skin 40015911 D48.5 Left upper buttock has a 1 cm red scaly slightly thickened papule--[facility] Hemangioma 964042947 D18 .00 Reassuranc e and education regarding the disorder and options. Postmenopa usal frontal fibrosing alopecia 562562995 L66.1 Avodart was helpful but ins wont cover this so she has elected to wear a wig [id number] MD [facility]O [facility] [place] [address] [place] [address] 03/23/2020 11:11:19 03/23/2020 13:11:30 History of malignant basal cell neoplasm of skin 170167979 Z85.828 Status post BCC on left dorsal forearm - doing well Lentigo 315399987 L81.4 Reassuranc e Erythema of skin 1192545 08 L53.9 Reassuranc e Neoplasm o f uncertain behavior of skin 04944031 D48.5 Hemangioma 397218686 D18 .00 Reassuranc e Postmenopa usal frontal fibrosing alopecia 407530754 L66.1 Avodart was helpful but ins wont cover this so she has elected to wear a wig Actinic keratosis [address] x 1 Malignant melanoma of upper limb 286652105 C43.62 Left biceps - 6 mm r/o AN shave removal and base destroyed with ED [id number] MD [facility] [place] [address] [place] [address] 04/05/2020 16:11:23 04/06/2020 11:13:41 History of malignant basal cell neoplasm of skin 194120437 Z85.828 Status post BCC on left dorsal forearm - doing well Malignant melanoma of upper limb 191442770 C43.62 Left biceps 0.5 mm, fairly non-aggess beau features excised - tag: proximal ck margins f/u 12 days for sutures f/u 4 months for FSE [id number] MD CIRO VILLASE[facility]OR [facility] [address] [place] [phone] 04/16/2020 10:23:35 04/16/2020 12:20:47 History of malignant basal cell neoplasm of skin 303555643 Z85.828 Status post BCC on left dorsal forearm - doing well Malignant melanoma of upper limb 852512556 C43.62 Left biceps 0.5 mm, fairly non-aggres sive features f/u 4 months for FSE Removal of suture 697315 01 Z48.02 [id number] MD [facility] [place] [address] [place] [address] 10/12/2020 11:17:22 10/12/2020 11:59:32 History of malignant basal cell neoplasm of skin 419720351 Z85.828 Status post BCC on left dorsal forearm - doing well History of Malignant melanoma 135424994 Z85.89 S/P MM on left biceps 0.5 mm 04/2020 - doing well Lentiginosis 883951552 L 81.4 Reassuranc e and education regarding the disorder and options. Raised quinn orrheic keratosis 8235056249 63591 L82.1 Reassuranc e and education regarding the disorder and options. Frontal fi brosing alopecia 986776438 L66.8 Reassuranc e and education regarding the disorder and options. Actinic keratosis 605753 [address] x 1 Multiple b enign melanocytic nevi 434674312 D22.9 Reassuranc e and education regarding the disorder and options. 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 ISK vs BCC r/o MM left biceps distally shave removal and base destroyed with ED [id number] MD CIRO VILLASEÑOR [facility] [address] [place] [address] 04/12/2021 11:35:27 04/12/2021 12:07:54 History of malignant basal cell neoplasm of skin 262793862 Z85.828 Status post BCC on left dorsal forearm - doing well History of Malignant melanoma 921207260 Z85.89 S/P MM on left biceps 0.5 mm 04/2020 - doing well Lentiginosis 194014446 L 81.4 Reassuranc e Recommende d Equate Ultra Sunscreen 30+ and sun protecting hats/cloth ing Raised quinn orrheic keratosis 6964395275 70560 L82.1 Reassuranc e Frontal fi brosing alopecia 539416488 L66.8 Reassuranc e Neoplasm o f uncertain behavior of skin 99018321 D48.5 left lower back - ? growth vs rash, doubt cancer watch, return early if worse [id number] MD CIRO VILLASE[facility]OR [facility] [address] [place] [address] 11/21/2021 15:27:33 11/21/2021 15:54:09 History of malignant basal cell neoplasm of skin 432127926 Z85.828 Status post BCC on left dorsal forearm - doing well History of Malignant melanoma 142202348 Z85.89 S/P MM on left biceps 0.5 mm 04/2020 - doing well Lentiginosis 893542205 L 81.4 Reassuranc e Recommende d Equate Ultra Sunscreen 30+ and sun protecting hats/cloth ing Frontal fi brosing alopecia 619728850 L66.8 Reassuranc e Neoplasm o f uncertain behavior of skin 23377089 D48.5 left lower back - ? growth vs rash, doubt cancer watch, return early if worseno change Contact dermatitis 02643 004 L25.9 skin on face and chest flared upHold on patch tests for now.will start HCC 2.5 % cream BID x 2 weeks40 Kenalog IM given todayre-ck in 1 mth if not better in week or so contact office [id number] MD [facility] [address] [place] [address] 01/30/2022 08:41:03 01/30/2022 10:07:52 History of malignant basal cell neoplasm of skin 059033355 Z85.828 Status post BCC on left dorsal forearm - doing well History of Malignant melanoma 184937554 Z85.89 S/P MM on left biceps 0.5 mm 04/2020 - doing well Lentiginosis 103921903 L 81.4 Reassuranc e Recommende d Equate Ultra Sunscreen 30+ and sun protecting hats/cloth ing Contact dermatitis 87898 004 L25.9 face and chest are clear todaytreat ed with Kenalog 40 mg and Hydrocorti sone cream - much betterHx genital/pe rianal rash better with clobetasol , [employer] did bx, told it was eczema -- edu re clob use Discussed patch testing if flares again Inflamed s eborrheic keratosis 394645702 L82.0 Education, then cryodestru ction with liquid nitrogen (LN) x 1 Neoplasm o f uncertain behavior of skin 34232268 D48.5 Right angle of jaw - Education, thenshave removaland base destroyed with electrodes sication. Actinic keratosis 007 L57.0 Education, then cryodestru ction with liquid nitrogen (LN) x 3 [id number] MD [facility] [address] [place] [address] 05/13/2024 09:29:48 05/13/2024 10:34:23 History of malignant basal cell neoplasm of skin 422545272 Z85.828 Status post BCC on left dorsal forearm - doing well History of Malignant melanoma 284018391 Z85.89 S/P MM on left biceps 0.5 mm 04/2020 - doing well Lentiginosis 970674376 L 81.4 Reassuranc e Recommende d Equate Ultra Sunscreen 30+ and sun protecting hats/cloth ing Raised quinn orrheic keratosis 6722696081 02325 L82.1 Reassuranc e Neoplasm o f uncertain behavior of skin 00685842 D48.5 Lt lower back has an irregular dull red 2cm patchNo change per pt? sBCC [facility] Derm[facility]ofibroma 441701782 D23.9 Reassuranc e Contact dermatitis 89010 004 L25.9 Anterior axillary folds and slightly towards center? cause--katia thing, otherDiscu ssed dx and tx options including topical steroids, biopsy, allergy testStart TAC 0.025% BID, taper as tolerated [id number] TANNER HERNANDEZ MD [facility] [address] [place] [address] 02/05/2025 12:55:09 02/05/2025 14:02:27 Anxiety 93014234 F41.9 Citalopram 20 mg daily, Wellbutrin 150 mg SR daily - Stable. Continue current medication s without changes Essential hypertension 60317411 I10 Losartan 100 mg daily, metoprolol 25 mg XR daily Today's Plan:- Bloodwork ordered today- Stable. Continue current medication s without changes Mixed hyperlipidemia 267 189473 E78.2 Atorvastat in 80 mg daily -Lipid panel ordered today. Continue current medication s without changes Primary fi bromyalgia syndrome 68186872 M79.7 Follows with rheumatolo gy (Dr. Collin [facility] at [facility]). Takes gabapentin TID - Continue active management per rheumatolo gy Osteopenia 611581337 M85 .80 DEXA with osteopenia in 2023. Taking 4000 units VitD3 daily History of pulmonary embolus 853153680 Z86.711 Apixaban 5 mg BID-Diagno sed in Oct 2024. Has follow up with pulm in May 2025 to decide if Apixaban is needing to be continued - Stable. Continue current medication s without changes. F/U with pulm as scheduled Gastroesop hageal reflux disease without esophagitis 516198749 K21.9 Omeprazole 20 mg daily- Stable. Continue current medication s without changes History of Spinal surgery 283666462 Z98.890 -Kyphoplas ty done on Oct 17, 2024seen by pain medicine and given tylenol/co deine rx which she rarely uses. Vertigo 152561101 R42 -reportedl y had done vestibular rehab in the past which has helped. Not currently doing and using meclizine multiple times per week.Refer to ENT for considerat ion of vestibular rehab episodes Memory impairment 075711 006 R41.3 self reported. Difficult to assess given first visit. Will triage with bloodwork today Adult [facility] th examination 957760946 Z00.00 Baseline blood work ordered today. Requesting records from former PCP. Uncertain when she is due for Medicare wellness exam [id number] [place] [address] [place], [place] [address] 02/24/2025 15:27:26 02/25/2025 13:30:12 Dizziness 796937644 R42 [place]-Hall[place] ke testing negative. Audiogram reviewed and interprete d. Asymmetric snhl right > left. Very severe on the right with poor discrimina tion score. MRI head/IACs to r/o acoustic neuroma. If normal would set her up for vestibular rehab. F/u after MRI Impacted c erumen of bilateral ears 5807646511 510510 H61.23 Removed from each canal. Asymmetric al sensorineural hearing loss 144909832 H90.3 Right > left [id number] TOMMY [place], [place] [address] [place], [place] [address] 02/24/2025 16:05:44 02/25/2025 04:20:18 Dizziness and giddiness 126070078 R42 Ear pressu re sensation 504228587 H93.8X3 Sensorineu ral hearing loss of bilateral ears 730237139 H90.3 [id number] [place] [address] [place] [address] 03/12/2025 13:49:10 03/12/2025 15:01:12 Adult health examination 094199757 Z00.00 Healthcare Maintenanc e: Vaccines/S creenings: Flu- [...] with next routine bloodwork Screening mammography 24 737853 Z12.31 Last mammogram 04/08/2024 , BI-RADS category 1, Negative.T here is no evidence of malignancy . Screening mammograms arerecomme nded in one year. Screening for malignant neoplasm of colon 939024110 Z12.11 No previous colonoscop y in patients chart, in view of patients age further screening is not indicated. Menopausal and postmenopausal disorders 913139569 N95.8 Last DEXA 04/14/2024 , patient has osteopenia , recommende d to repeat in 2 years. Hepatitis C screening 41 7837878 Z11.59 Has patient ever had Hep C screening? NO record in chart. Active immunization 3387 9002 Z23 Has patient had Hep B vaccine? NO record in chart.Prev nar20- UTD per patientTda p- 01/18/2023 Shingles- UTD per [id number] 01/2025 flu- No record in chart. Eye disord er screening 705446724 Z13.5 Has patient ever had eye/glauco ma screening? NO record in chart. Ex-smoker 1873600 Z87.89 [address] Former smoker. No previous CT chest lung nodule screening in patients chart. Essential hypertension 95146687 I10 Losartan 100 mg daily, metoprolol 25 mg XR daily. Labs done February 2025 Today's Plan:- Stable/wel l controlled . Continue without changes. Recommende d home BP readings given dizziness as below Gastroesop hageal reflux disease without esophagitis 780606468 K21.9 Omeprazole 20 mg daily - Stable. Continue current medication s without changes Mixed hyperlipidemia 267 497029 E78.2 Atorvastat in 80 mg daily. Lipid panel well-contr olled in February 2025 (LDL 63) - Stable. Continue without changes Anxiety 71528610 F41.9 Citalopram 20 mg daily, Wellbutrin 150 mg SR daily - Stable. Continue current medication s without changes Osteopenia 024425814 M85 .80 DEXA with osteopenia in 2023. Taking 4000 units VitD3 daily. - Repeat DEXA in 2 years (April 2026) Primary fi bromyalgia syndrome 23665859 M79.7 Follows with antonia molina (Dr. Collin Bennett at [facility]). Takes gabapentin TID - Continue active management per antonia molina Dizziness 059648644 R42 -reportedl y had done vestibular rehab [...] Member ID Vaughn Member ID Guarantor Name 04/07/2025 2 [employer] (MEDICARE SUPPLEMENT) Sarah Francisco Scovell [id number] Sarah Francisco Scovell 04/07/2025 1 MEDIC[employer] (MEDICARE) Sarah G Scovell [id number] Sarah G Scovell Notes Date Note Type Note Provider Name and Address Organization Details Recorded Time 05/13/2024 text/html ROS as noted in the HPI Established PatientHx of MM on left biceps [...] family history of melanoma. GABRIELLE BOCANEGRA MD [address] [place] [address], [phone], [facility] 05/13/2024 16:16:30 02/05/2025 text/html ROS as noted in the HPI Sarah Hansen is a 79 year old female presenting to [facility] care. Previous PCP was Dr. Ro in [facility]. She saw him last earlier this year. [...] History:Work: retired, formerRNHome: [place] [facility]Tob[place]: former smoker, quit 50+ years agoAlcohol: occasionalIllicits: noneReligion: christianHobbies: plays piano, enjoys reading Annual Exam: due summer 2024 TANNER HERNANDEZ MD [address] [place] [address], [phone], [facility] 02/05/2025 15:35:22 02/24/2025 text/html [facility]: DizzinessTiming: Years, worsened over the [...] when she is dizzy ELKIN GREGORY MD [address] [place] [address], [phone], [facility] 02/24/2025 16:43:00 03/12/2025 text/html ROS as noted in the HPI Sarah Hansen is a 79 year old [...] History:Work: retired, former RNHome: [facility]: former smoker, quit 50+ years agoAlcohol: occasionalIllicits: noneReligion: christianHoalex: plays piano, enjoys reading.Does a viking cruise [...] after drinking alcohol or ride with a medical van driver who has been drinking? - No [...] friends, or caretakers? - No Imported from [facility] on 03/12/2025 TANNER HERNANDEZ MD [address] [place] [address], [phone], [facility] - [facility] 03/12/2025 14:57:59 OBGyn Episode No OBEpisode recorded.
--- OUTSIDE RECORDS SUMMARY | 2025-04-30 10:01 | XMS_ITS | Continuity of Care Document ---
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 Name Role Phone DREW HERNANDEZ Primary Care [...] along with management of multiple chronic conditions [email or web address] Not available 03/12/2025 06:58:35 Plan of Treatment [...] bilateral , w/ CAD 2024 025 [email or web address] [facility], [address] [place], [address], 03/26/2025 07:38:35 Medication Orders atorvasta tin 80 mg tablet 2024 025 [facility], [address], [place], [address], 03/12/2025 14:51:19 omeprazol e 20 mg capsule,d elayed release 2024 025 [facility], [address], [place], [address], 03/12/2025 14:51:21 losartan 100 mg tablet 2024 025 [facility], [address], [place], [address], 03/12/2025 14:51:21 metoprolo l succinate ER 25 mg tablet,ex tended release 24 hr 2024 025 [facility], [address], [place], [address], 03/12/2025 14:51:23 citalopra m 20 mg tablet 2024 025 [facility], [address], [place], [address], 03/12/2025 14:51:23 bupropion HCl 150 mg tablet,12 hr sustained -release( smoking deterrent ) 2024 025 [facility], [address] [place], [address], 03/12/2025 14:51:19 Patient TargetsNo targets recorded. Patient Instructions Encounter Date Encounter Id Patient Instructions Last Modified By Organization Details Last Modified Time 03/12/2025 [id number] Your Screening Plan: 1. Colon Cancer Screening: [...] in 1 year for Medicare wellness exam [email or web address] Not available 03/12/2025 07:06:44 Reason for Referral None Reported. Results Created Date Observation Date Name Description Value Unit Range Abnormal Flag Note LastModifiedBy Organization Detail LastModifiedTime 02/26/20 25 02/24/2025 audio gram No observ ation record ed. [email or web address] Not Available 02/2025 14:45:24 03/18/20 25 03/18/2025 imagi ng/di agnos tic resul t No observ ation record ed. MARY Not Available 2024 11:03:46 04/12/20 25 04/09/2025 MAMMO , scree jayjay, tomos ynthe sis, bilat eral, w/ CAD No observ ation record ed. [facility] [address], [place], [address], 04/19/2025 16:08:06 Result Notes None recorded. Problems Name Problem SNOMED Code Status Onset Date Resolution Date Notes Provider Name and Address Organization Details Recorded Time Essential hypertension 47406159 Active 2024 DREW HERNANDEZ MD [address] [place] [address], [phone], [facility] 07:01:53 Anxiety 92110515 Active 2024 DREW HERNANDEZ MD [address] [place] [address] [place], [address], [facility] 07:01:54 Mixed hyperlipidemia 826995864 Active 2024 DREW HERNANDEZ MD [address] [place] [address], [address], [facility] 07:01:59 Primary fibromyalgia syndrome 37802084 Active 2024 DREW HERNANDEZ MD [address] [place] [address], [address], [facility] 07:02:02 Osteopenia 907395541 Active 2024 DREW HERNANDEZ MD [address] [place] [address], [address], [facility] 07:02:04 History of pulmonary embolus 220426733 Active 2024 DREW HERNANDEZ MD [address] [place] [address], [address], [facility] 13:32:02 Gastroesophage al reflux disease without esophagitis 334319399 Active 2024 DREW HERNANDEZ MD [address] [place] [address], [address], [facility] 07:01:56 History of Spinal surgery 589153288 Active 2024 DREW HERNANDEZ MD [address] [place] [address], [address], [facility] 13:32:06 Memory impairment 991312187 Active 2024 DREW HERNANDEZ MD [address] [place] [address], [address], [facility] 13:56:21 Adult health examination Active 2024 DREW HERNANDEZ MD [address] [place] [address], [address], [facility] 13:56:23 Problem Notes None recorded. Procedures Surgical History Date Name Laterality Status Provider Name and Address Organization Details Recorded Time 02/25/20 25 Tympanogram completed TOMMY MYERS CCC-A [address] [place] [address], [phone], [facility] 02/24/2025 16:10:49 02/25/20 25 Audiogram completed TOMMY MYERS CCC-A [address] [place] [address], [address], [facility] 02/24/2025 16:10:46 02/25/20 25 [facility] 15:55:23 02/25/20 25 Cerumen removal - Instruments, Bilateral [facility] 02/24/2025 15:54:12 01/31/20 22 Destruction Premalignant Lesion(s) completed Eneida Mckeon [facility] 01/30/2022 09:09:33 01/31/20 22 Destruction BN Lesions completed Eneida Mckeon [facility] 01/30/2022 09:09:47 01/31/20 22 Shave Lesion; face, ear, eyelid, nose, lip, muc memb completed GABRIELLE BOCANEGRA MD [address] [place], [address], [facility] 02/03/2022 07:57:17 02/01/20 21 Shave Lesion; trunk, arm, leg completed GABRIELLE BOCANEGRA MD [address] [place], [address], [facility] 02/03/2021 21:40:45 02/01/20 21 Destruction Premalignant Lesion(s) completed Silvina Hanna [facility] 01/31/2021 10:52:55 10/12/19 21 Destruction Premalignant Lesion(s) completed GABRIELLE BOCANEGRA MD [address] [place], [address], [facility] 10/12/2020 12:54:51 04/16/20 20 Suture/Staple removal completed Silvina Hanna [facility] 04/16/2020 10:26:33 04/05/20 20 Excision MN Lesion; trunk, arm, leg completed Silvina Hanna [facility] 04/05/2020 17:05:37 03/23/20 20 Destruction MN Lesion; trunk, arm, leg completed GABRIELLE BOCANEGRA MD [address] [place], [address], [facility] 04/01/2020 22:53:39 03/23/20 20 Destruction Premalignant Lesion(s) completed Silvina Fitzgerald [facility] 03/23/2020 11:35:49 01/22/20 18 Destruction Premalignant Lesion(s) completed Silvina [facility] 01/21/2018 10:55:47 Other completed Not Available [facility] 02/05/2025 12:55:10 Total Hysterectomy completed Not Available [facility] 02/05/2025 12:55:10 Back Surgery completed DREW HERNANDEZ MD [address] [place], [address], [facility] 02/05/2025 13:17:05 Cataract Surgery completed Not Available [facility] 02/05/2025 12:55:10 Cholecystectomy completed Not Available [facility] 02/05/2025 12:55:10 Flexible Sigmoidoscopy completed Not Available [facility] 02/05/2025 12:55:10 Hysterectomy completed Not Available [facility] 02/05/2025 12:55:10 Tonsillectomy completed Not Available [facility] 02/05/2025 12:55:10 total knee replacement completed DREW HERNANDEZ MD [address] [place], [address], [facility] 02/05/2025 13:18:15 Joint Replacement completed Not Available [facility] 03/12/2025 13:49:12 Knee Surgery completed Not Available [facility] 03/12/2025 13:49:12 Imaging Results None recorded. Procedure Notes None recorded. Medical Equipment None Reported. Allergies Allergen ID Allergen Name Allergen Category Reaction Reaction Severity Criticality Documentation Date Start Date Code Code System Note Provider Name and Address Organization Details Recorded Time 304200 morphine sulfate medicatio n Not available Not available Not available 09/01/20162008 42169 RxNorm Comme nt: Creat ed By: Branden ojeda Date: 2008 12:22 :34 PM; Not Available [facility] 6 03:16:33 322157 aspirin / caffeine / propoxyph katherine medicatio n Not available Not available Not available 09/01/20162008 73192 8 RxNorm Comme nt: Creat ed By: Branden Mcdaniel yn;Cr eated Date: 2008 12:22 :47 PM; Not Available [facility] 6 05:50:01 376214 thimerosa l medicatio n Not available Not available Not available 05/13/2024 56046 RxNorm Unabl e to get flu shot [facility] 4 09:48:49 Medications Name Sig [...] day by oral route. active rheumato logy- [facility] Not Available Not Available Not Available atorvasta [...] Last Updated DateTime 149.86 cm 26 kg/m2 56378.6 2 g 62 /min 99 % 99 % 130/78 mm[Hg] Harris Shaw [facility] 14:27:13 Social History Question Answer Notes LastModified by Organizat ion Details LastModified Time Tobacco Smoking Status Former Smoker Not Available [employer] 02/05/2025 12:55:10 What Is Your Level Of Caffeine Consumption? Moderate [email or web address] Information not available 02/05/2025 When Did You Quit Smoking? 16+yearssince lastcigarette [email or web address] Information not available 02/05/2025 What Was The Date Of Your Most Recent Tobacco Screening? 03/12/2025 [email or web address] Information not available 03/12/2025 What Is Your [...] mL dose 11/12/2020 completed Jefferina Page null, [facility] 02/05/2025 13:13:02 COVID-19, mRNA, LNP-S, PF, 30 mcg/0.3 mL dose 12/04/2020 completed Jefferina Page null, [facility] 02/05/2025 13:13:02 COVID-19, mRNA, LNP-S, PF, 30 mcg/0.3 mL dose 07/06/2021 completed Jefferina Page null, [facility] 02/05/2025 13:13:02 COVID-19, mRNA, LNP-S, PF, 30 mcg/0.3 mL dose, byron-sucrose 03/21/2022 completed Jefferina Page null, [facility] 02/05/2025 13:13:02 COVID-19, mRNA, LNP-S, PF, 30 mcg/0.3 mL dose, byron-sucrose 06/28/2022 completed Jefferina Page null, [facility] 02/05/2025 13:13:02 COVID-19, mRNA, LNP-S, bivalent, PF, 30 mcg/0.3 mL dose 09/13/2022 completed Jefferina Page null, [facility] 02/05/2025 13:13:02 RSV, recombinant, protein subunit RSVpreF, adjuvant reconstituted, 0.5 mL, PF 07/14/2023 completed Jefferina Page null, [facility] 02/05/2025 13:13:02 COVID-19, mRNA, LNP-S, PF, byron-sucrose, 30 mcg/0.3 mL 07/25/2023 completed Jefferina Page null, [facility] 02/05/2025 13:13:02 Tdap 01/18/2023 completed Jefferina Page null, [facility] 02/05/2025 13:13:02 COVID-19, mRNA, LNP-S, PF, byron-sucrose, 30 mcg/0.3 mL 06/13/2024 completed DREW HERNANDEZ MD [address] [place] [address], [address], [facility] 03/12/2025 06:58:52 Past Encounters Encounter ID Performer Location Encounter Start Date Encounter Closed Date Diagnosis/Indication Diagnosis SNOMED-CT Code Diagnosis ICD10 Code Diagnosis Note [id number] ELKIN GREGORY MD ENT [address] [address] 02/24/2025 15:27:26 02/25/2025 13:30:12 Dizziness 454378941 R42 [place] testing negative. Audiogram reviewed and interprete d. Asymmetric snhl right > left. Very severe on the right with poor discrimina tion score. MRI head/IACs to r/o acoustic neuroma. If normal would set her up for vestibular rehab. F/u after MRI Impacted c erumen of bilateral ears 2089936332 805468 H61.23 Removed from each canal. Asymmetric al sensorineural hearing loss 829504718 H90.3 Right > left [id number] TOMMY MYERS, CCC-A ENT [address] [address] 02/24/2025 16:05:44 02/25/2025 04:20:18 Dizziness and giddiness 897699961 R42 Ear pressu re sensation 064547357 H93.8X3 Sensorineu ral hearing loss of bilateral ears 880005967 H90.3 [id number] DREW HERNANDEZ MD INTERNAL MEDICINE [place] [address] [place] [address] 03/12/2025 13:49:10 03/12/2025 15:01:12 Adult health examination 109201785 Z00.00 Healthcare Maintenanc e: Vaccines/S creenings: Flu- [...] with next routine bloodwork Screening mammography 24 951697 Z12.31 Last mammogram 04/08/2024 , BI-RADS category 1, Negative.T here is no evidence of malignancy . Screening mammograms arerecomme nded in one year. Screening for malignant neoplasm of colon 438961820 Z12.11 No previous colonoscop y in patients chart, in view of patients age further screening is not indicated. Menopausal and postmenopausal disorders 288634031 N95.8 Last DEXA 04/14/2024 , patient has osteopenia , recommende d to repeat in 2 years. Hepatitis C screening 41 8242252 Z11.59 Has patient ever had Hep C screening? NO record in chart. Active immunization 3387 9002 Z23 Has patient had Hep B vaccine? NO record in chart.Prev nar20- UTD per patientTda p- 01/18/2023 Shingles- UTD per [id number] 01/2025 flu- No record in chart. Eye disord er screening 735088178 Z13.5 Has patient ever had eye/glauco ma screening? NO record in chart. Ex-smoker 0641197 Z87.89 1 Former smoker. No previous CT chest lung nodule screening in patients chart. Essential hypertension 17256289 I10 Losartan 100 mg daily, metoprolol 25 mg XR daily. Labs done February 2025 Today's Plan:- Stable/wel l controlled . Continue without changes. Recommende d home BP readings given dizziness as below Gastroesop hageal reflux disease without esophagitis 558587186 K21.9 Omeprazole 20 mg daily - Stable. Continue current medication s without changes Mixed hyperlipidemia 267 306001 E78.2 Atorvastat in 80 mg daily. Lipid panel well-contr olled in February 2025 (LDL 63) - Stable. Continue without changes Anxiety 12926950 F41.9 Citalopram 20 mg daily, Wellbutrin 150 mg SR daily - Stable. Continue current medication s without changes Osteopenia 223902817 M85 .80 DEXA with osteopenia in 2023. Taking 4000 units VitD3 daily. - Repeat DEXA in 2 years (April 2026) Primary fi bromyalgia syndrome 28159721 M79.7 Follows with antonia molina (Dr. Collin Bennett at [facility]). Takes gabapentin TID - Continue active management per antonia molina Dizziness 607784626 R42 -reportedl y had done vestibular rehab [...] Vaughn Member ID Guarantor Name 03/12/2025 1 [place] Sarah Alanlanie [id number] Sarah Alanlanie 03/12/2025 2 [employer] (MEDICARE SUPPLEMENT) Sarah Alanlanie [id number] Sarah Singh Tyrone Notes Date Note Type Note Provider Name and Address Organization Details Recorded Time 03/12/2025 text/html ROS as noted in the [...] History:Work: retired, former [employer]: [facility] [place] [facility]: former smoker, quit 50+ years agoAlcohol: occasionalIllicits: [...] after drinking alcohol or ride with a transportation driver who has been drinking? - No [...] friends, or caretakers? - No Imported from [facility] on 03/12/2025 DREW HERNANDEZ MD [address] [place], [address], [facility] 03/12/2025 14:57:59 OBGyn Episode No OBEpisode recorded.
--- OUTSIDE RECORDS SUMMARY | 2025-04-30 10:01 | XMS_ITS | Referral Summary ---
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 Name Role Phone Jeancarlos Santizo MD Unavailable [phone] Tanner Mcdonnell MD Primary Care Provide r Encounters Date Type Department Care Team Description 04/09/2025 Outside Orders [facility] [address] [facility] [address] [place] [address] Tanner Mcdonnell MD Visit for screening mammogram (Primary Dx) 04/09/2025 Travel 04/09/2025 10:56 AM EDT - 04/09/2025 11:59 PM EDT Hospital Encounter [facility] Breast [facility] [address] [facility] [address] [place] [address] Tanner Mcdonnell MD Screening for breast cancer Discharge Disposition: Home or Self Care from Last 3 Months Social History Tobacco [...] Date Joe rded Speak language other than Slovak at home Not on file 10/26/2023 Want [...] Info) Description 04/14/2026 11:45 AM EDT Appointment [address] [address] Procedures Procedure Name Priority Date/Time Associated Diagnosis [...] COMMERCIAL MEDICARE PART A B Care Teams Glass Rolling Machine Operator Relationship Specialty Start Date End Date Tanner Mcdonnell MD [address] [place] [address] PCP - General Internal Medicine 04/09/25 Jeancarlos Santizo MD [address] [place] [address] [phone] (work) Referring Physician General Internal Medicine 03/21/23
--- NOTE | 2025-04-30 10:22 | EXP.PAIN.SOA ---
[facility] Disclaimer: The information contained in this section may have been updated after the patient was seen, as this information can be updated by other users. 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 Acute respiratory distress syndrome (ARDS) Elevated troponin Vulvar lesion Vasomotor symptoms due to menopause Unstable angina Parotitis Encounter for pre-operative cardiovascular clearance Chest pressure ARDS (adult respiratory distress syndrome) Pneumonia Thyroid nodule Memory loss Ataxia, unspecified Lumbago with sciatica, left side Primary generalized (osteo)arthritis Vitamin D deficiency, unspecified Abnormal electrocardiogram [ECG] [EKG] Fibromyalgia Abnormal EKG Diastolic dysfunction HTN (hypertension) HLD (hyperlipidemia) Gastroesophageal reflux disease Surgical History History of tonsillectomy Presence of artificial knee joint, bilateral History of cholecystectomy H/O total hysterectomy Family History Other Family history of Alzheimer disease Family history of cancer Social History Smoking Status: Former smoker second hand exposure: No alcohol intake: never substance use type: denies use current occupational status: other Travel in the last 8 weeks?: None household members: spouse housing: house current occupational exposures/hazards: No caffeine: Yes PM Subjective & Objective Subjective Subjective:: Patient is a pleasant 79-year-old female who presents today for follow-up of her left SI injection on 03/24/2025. Today she rates her pain a 4 out of 10. Patient does state that she did get significant relief following this injection and feels like it is still helping. She relates at least 80 to 90% improvement initially does state ongoing about 50 to 60%. Patient states she does have a lot more stiffness throughout but has been doing an exercise regimen at home to work on the chronic low back pain as well as balance. Patient is still using her compounded cream religiously and feels like this does provide significant improvement. Patient did finish her PT with some improvement. She does states she feels like a lot of these exercises are repetitive. She is doing these still at home. Her August has been reviewed and is appropriate. Review of Systems: General: No recent weight changes, no fever, no sleep disturbances Respiratory: No cough, no shortness of air, no recurring pulmonary infections Cardiovascular/peripheral vascular: No chest pain, no palpitations, no edema, no shortness of breath Gastrointestinal: No new onset incontinence, normal bowel movements reported Genitourinary: No new onset incontinence Musculoskeletal: Low back pain Psychiatric: [Normal mood/affect] Neurological: [Denies weakness in extremities], [denies balance issues] Pain at rest (0-10 scale): 4 Objective Objective:: Physical Exam: General: Alert and oriented x3, no acute distress, pleasant and cooperative Lungs: Respirations even and unlabored, symmetrical chest expansion Eyes: PERRL Musculoskeletal: Flexion and extension of lumbar [spine] somewhat guarded secondary to pain, [antalgic gait noted] Neurological: Speech clear, no gross sensory deficit Has patient had previous pain injection?: Yes Percent improvement in pain since last injection: 80 to 90% Conservative treatment options previously tried: Home exercise plan Length of treatment: Longer than 12 weeks Meds Home Medications and Allergies Home Medications ?Medication ?Instructions ?Recorded ?Confirmed ?Type aspirin 81 mg tablet,delayed 81 mg PO DAILY 04/22/18 03/24/25 History release Held on 11/27/24. Instructions: Doctor's Order hydrocortisone 2.5 % topical cream 1 applic topical DIRECTED Skin 10/31/21 03/24/25 History Condition gabapentin 100 mg capsule 100 mg PO BIDP PRN nerve pain 05/15/23 03/24/25 History metoprolol succinate 25 mg 25 mg PO DAILY #90 tabs 12/10/23 03/24/25 Rx tablet,extended release 24 hr losartan 100 mg tablet 100 mg PO DAILY 10/17/24 03/24/25 History cholecalciferol (vitamin D3) 75 4,000 unit PO DAILY 11/25/24 03/24/25 History mcg (3,000 unit) tablet apixaban 5 mg tablet 5 mg PO BID #180 tabs 12/24/24 03/24/25 Rx atorvastatin 80 mg tablet 80 mg PO HS #90 tabs 12/30/24 03/24/25 Rx acetaminophen 300 mg-codeine 30 mg 1 tab PO DAILY #30 tabs 01/28/25 03/24/25 Rx tablet bupropion HCl 150 mg tablet,12 hr 150 mg PO DAILY #90 ea 02/06/25 03/24/25 Rx sustained-release citalopram 20 mg tablet See Rx Instructions .Route 02/06/25 03/24/25 Rx .COMPLEX #90 tabs omeprazole 20 mg capsule,delayed 20 mg PO DAILY #90 caps 02/26/25 03/24/25 Rx release New Prescriptions to Start Prescriptions: Allergies Allergy/AdvReac Type Severity Reaction Status Date / Time morphine Allergy Unknown Verified 02/26/25 13:47 allergy reaction propoxyphene (From Darvon) Allergy Unknown Verified 02/26/25 13:47 allergy reaction thimerosal (From Merthiolate Allergy Unknown Verified 02/26/25 13:47 (thimerosal)) allergy reaction Assessment and Plan *Assessment and plan (1) Chronic back pain: Status: Acute Qualifiers: Back pain location: back pain in unspecified location Category: Medical Code(s): M54.9 - Dorsalgia, unspecified; G89.29 - Other chronic pain (2) Bilateral sacroiliitis: Status: Acute Category: Medical Code(s): M46.1 - Sacroiliitis, not elsewhere classified (3) Degenerative disc disease, lumbar: Status: Chronic Category: Medical Code(s): M51.369 - Other intervertebral disc degeneration, lumbar region without mention of lumbar back pain or lower extremity pain Plan I did discuss with the patient that she may benefit from aquatic therapy and that I can order this. Patient states she would like to think on it. I did field counsel her that if she decides that she would like to proceed forward with this plan of care she can just call our office and I will write the order. We will follow-up with her in 2 months for reevaluation of symptoms and plan of care. Patient has been instructed to contact the clinic with any concerns before the next appointment. Dr. Alonzo has reviewed this note and agrees with this plan of care. This note was dictated using voice recognition software and make contain errors or omissions. All injections are used with Lidocaine, Bupivacaine and dexamethasone. Occasionally urine drug screen is needed to verify patient's compliance with our office pain contract. This is ordered based off specific treatments related to chronic pain with the potential to abuse certain medications.
[2025-04-30 11:18] VITALS: BP 139/60; PULSE 61; RESP 14; O2SAT 93; BMI 24.8
== END 2025-04-30 23:59 | disposition home or self-care (01) ==
LOC: SC.PAIN 09:58
PROVIDERS: Visit Provider Nurse Practitioner Family
DX: M51.360 Other intervertebral disc degeneration, lumbar region with discogenic back pain only (principal); M46.1 Sacroiliitis, not elsewhere classified; G89.29 Other chronic pain
CPT/HCPCS: 99212; G0463

== ENCOUNTER 2025-05-22 10:21 | Outpatient (CLI) | payer MEDICARE, OTHER, SELFPAY ==
--- OUTSIDE RECORDS SUMMARY | 2025-02-25 07:32 | XMS_ITS | Continuity of Care Document ---
Author Name [facility] Organization [facility] Care Team Providers Care Pilot Supervisor Name Role Phone [facility] Unavailable Unavailable Problems Combined list of problems from [facility] facilities. It does not include entries that were removed or entered in error. Problem Status Onset Date Problem Type Date of Resolution Comments Source Asymmetric sensorineural hearing loss Active Condition [facility] Diagnosis: ICD-10-CM Z46.1 Encounter for fitting and adjustment of hearing aid Active [facility] Diagnosis: ICD-10-CM H90.5 Unspecified sensorineural hearing loss Active Diagnosis [facility] Encounters Combined list of: 1) Encounters from [facility] facilities going backup to the last 18 months, not all [place] inpatient encounters are included; 2) Encounters from the [facility] facilities going backup to 280 months. Location Location Details Encounter Type Encounter Number Reason For Visit Attending Provider ADM Date DC Date Status Disposition Source [facility] Outpatient Encounter [id number] ISELACALEB FELY Allen 10/11 [place] HEARING AID REPAIR/MOD IFYING [id number] Diagnos is: ICD-10- CM H90.5 Unspeci fied sensori neural hearing loss SUNDAR BATES STIBrijesh 10/11 [place] [facility] [place] [id number] Diagnos is: ICD-10- CM Z46.1 Encount er for fitting and adjustm ent of hearing aid SUNDAR BATES STIBrijesh 11/[address] [place] [facility] HEARING AID REPAIR/MOD IFYING [id number] Diagnos is: ICD-10- CM Z46.1 Encount er for fitting and adjustm ent of hearing aid DUCYNACI ALEKS Rivera 12/18 [place] [facility] HEARING AID REPAIR/MOD IFYING [id number] Diagnos is: ICD-10- CM Z46.1 Encount er for fitting and adjustm ent of hearing aid Shaylee BRIDGES 01/07 [place] [facility] Outpatient Encounter [id number] 02/25 [place] [facility] Outpatient Encounter [id number] 02/25 [place] [facility]
--- OUTSIDE RECORDS SUMMARY | 2025-04-09 10:56 | XMS_ITS | Encounter Summary ---
Author Organization [employer] [facility] ([place], [place], [place], [place]) Address [address] [place] [address] Care Team Providers Care Adjunct Faculty Mathematics Department Name Role Phone Jeancarlos Santizo MD Unavailable Tanner Mcdonnell MD Primary Care Provide r Reason for Referral * Mammography (Routine) - Closed Specialty Diagnoses / Procedures Referred By Howard lee Referred To Contact Radiology Diagnoses Screening for breast cancer Procedures MM digital mammo screen with cecilia bilateral Tanner Mcdonnell MD [address] [place] [address] Phone: tel: fax: Referral ID Status Reason Start Date Expiration Date Visits Re quested Visits Authorized [id number] Closed 04/09/2025 04/09/2026 1 1 Reason for Visit * Mammography (Routine) - Closed Specialty Diagnoses / Procedures Referred By Howard ele Referred To Contact Radiology Diagnoses Screening for breast cancer Procedures MM digital mammo screen with cecilia bilateral Tanner Mcdonnell MD [address] [place] [address] Phone: tel: fax: Referral ID Status Reason Start Date Expiration Date Visits Re quested Visits Authorized [id number] Closed 04/09/2025 04/09/2026 1 1 Encounter Details Date Type Department Care Team (Latest Contact Info) Description 04/09/2025 10:56 AM EDT - 04/09/2025 11:59 PM EDT Hospital Encounter [facility] [address] [place] [address] Tanner Mcdonnell MD [address] [place] [address] Screening for breast cancer Discharge [...] Date Joe rded Speak language other than Namibian at home Not on file 10/26/2023 Want [...] Info) Description 04/14/2026 11:45 AM EDT Appointment [facility] [address] [place] [address] documented as of this encounter [...] unspecified documented in this encounter Care Teams Adjunct Faculty Mathematics Department Relationship Specialty Start Date End Date Tanner Mcdonnell MD [address] [place] [address] PCP - General Internal Medicine 04/09/25 Jeancarlos Santizo MD [address] [place] [id number] Referring Physician General Internal Medicine 03/21/23 documented as of this encounter
--- NOTE | 2025-05-22 10:15 | CA_ITS ---
APPROVED REPORT EXAM: Comprehensive 2D, Doppler, and color-flow Echocardiogram President And Chief Operating Officer: NAVEED Dunn, RVS Ht: 4 ft 11 in Wt: 124lbs BSA: 1.50 BP: 155/65 mmHg Indications: Pulmonary HTN, mild , CAD, DD, Mild AI, mild TR 2D Dimensions Left Atrium 2.74 cm F: 2.7 - 3.8 LA Volume 45.40 mL LA Volume Index 30.909296 mL/m2 (M/F) 16-34 EF AP4 62.10 % GL Strain -19.2 % M-Mode Dimensions RVDd 2.06 cm (0.9-2.6) LA Diam 3.11 cm (1.9-4.0) LVDd 4.28 cm (3.5-5.7) LVDs 2.34 cm (3.5-5.7) IVSd 0.81 cm (0.6-1.1) PWd 0.81 cm (0.6-1.1) EF (Teich) 77.00% EPSs 0.19 cm FS 45.30% EDV (Teich) 82.20 mL TAPSE 2.21 (<1.7) ESV (Teich) 18.90 mL LV Diastology E Decel Time 240 (160-240 msec) E/A Ratio 0.62 MED A' 15.00 cm/s LAT A' 13.50 cm/s Aortic Valve FAITH Index 1.37 cm2/m2 AoV Peak Dagoberto. 200.0 (50-130 cm/s) AI PHT 592.00 ms AO Peak GR. 16.00 mmHg AO Mean GR. 7.70 (<5 mmHg) AO VTI 42.8 (18-25 cm) FAITH (VTI) 2.11 (2.5-4.5 cm2) Mitral Valve MV A Velocity 91.0 (40-130 cm/s) E/A Ratio 0.62 Tricuspid Valve TR P. Velocity 282.00 cm/s RAP Estimate 10.00 mmHg RVSP 41.90 mmHg Left Ventricle The left ventricle is normal size. Left ventricular systolic function is normal. The left ventricular ejection fraction is within the normal range. There is increased left ventricular wall thickness. There is normal LV segmental wall motion. Transmitral Doppler flow pattern suggests impaired LV relaxation. LVEF is 55% Right Ventricle The right ventricle is normal size. The right ventricular systolic function is normal. Atria The left atrium size is normal. The right atrium size is normal. There is no color Doppler evidence of interatrial shunt. Aortic Valve The aortic valve is mildly thickened. Mild aortic stenosis is present. FAITH by continuity equation is 2.0 cm2. Peak velocity 2.0 m/s. Mean AV gradient 10 mmHg. Max AV gradient 16 mmHg. Mild aortic regurgitation is present. Mitral Valve The mitral valve is normal in structure. No evidence of mitral valve stenosis. Mild mitral regurgitation is present. Tricuspid Valve The tricuspid valve leaflets are thin and pliable. Mild to moderate tricuspid regurgitation. RVSP is 35-40 mmHg. Pulmonic Valve The pulmonary valve is grossly normal in structure. Trace pulmonic valve regurgitation is present. Great Vessels The aortic root is normal in size. IVC is normal in size and collapses >50% with inspiration. Pericardium There is no pericardial effusion. Other Information Study Quality: Fair Conclusion Normal biventricular systolic function. Mild (FAITH by continuity equation is 2.0 cm2. Peak velocity 2.0 m/s. Mean AV gradient 10 mmHg. Max AV gradient 16 mmHg). Mild to moderate TR. Mild AI, mild MR. Elevated RVSP 35-40 mmHg. Electronically signed by : Shayla Matthews MD 05/23/2025 13:55:02
--- OUTSIDE RECORDS SUMMARY | 2025-05-22 10:24 | XMS_ITS | Clinical Summary ---
Author Organization [employer] ([place], [place], [place], [place]) Address [address] [place] [address] Care Team Providers Care Rail Car Repairman Name Role Phone Jeancarlos Santizo MD Unavailable [phone] Tanner Mcdonnell MD Primary Care Provide r Encounters Date Type Department Care Team Description 04/09/2025 10:56 AM EDT - 04/09/2025 11:59 PM EDT Hospital Encounter [facility] Breast [address] [place] [phone] Tanner Mcdonnell MD Screening for breast cancer Discharge Disposition: Home or Self Care 04/09/2025 Outside Orders [address] [place] [phone] Tanner Mcdonnell MD Visit for screening [...] Date Joe rded Speak language other than Colombian at home Not on file 10/26/2023 Want [...] Info) Description 04/14/2026 11:45 AM EDT Appointment [address] [address] Health Maintenance Due Date Last [...] COMMERCIAL MEDICARE PART A B Care Teams Rail Car Repairman Relationship Specialty Start Date End Date Tanner Mcdonnell MD [address] [place] [address] PCP - General Internal Medicine 04/09/25 Jeancarlos Santizo MD [address] [place] [phone] Referring Physician General Internal Medicine 03/21/23
--- OUTSIDE RECORDS SUMMARY | 2025-05-22 10:24 | XMS_ITS | Encounter Summary ---
Author Organization [employer] ([place], [place], [place], [place]) Address [address] [place] [address] Care Team Providers Care Diver Assistant Name Role Phone Jeancarlos Santizo MD Unavailable [phone] Tanner Mcdonnell MD Primary Care Provide r Reason for Referral * Mammography (Routine) - Authorized Specialty Diagnoses / Procedures Referred By Contac t Referred To Contact Radiology Diagnoses Visit for screening mammogram Procedures MM digital mammo screen with herbert bilateral Tanner Mcdonnell MD [address] [place] [address] Phone: tel: fax: [address] [place] [phone] Phone: tel: fax: Referral ID Status Reason Start Date Expiration Date V isits Requested Visits Authorized [id number] Authorized 04/14/2026 04/14/2027 1 1 Encounter Details Date Type Department Care Team (Late st Contact Info) Description 04/09/2025 Outside Orders [address] [place] [phone] Tanner Mcdonnell MD [address] [place] [address] Visit for screening mammogram (Primary Dx) Social [...] Date Joe rded Speak language other than Salvadorean at home Not on file 10/26/2023 Want [...] Info) Description 04/14/2026 11:45 AM EDT Appointment [address] [place] [address] Scheduled Orders Name Type Priority Associated Diagnoses Orde r Schedule MM digital mammo screen with herbert bilateral Imaging Routine Visit for screening mammogram Expected: 04/14/2026, Expires: 04/14/2027 documented as of this encounter Visit Diagnoses Diagnosis Visit for screening mammogram- Primary documented in this encounter Care Teams Diver Assistant Relationship Specialty Start Date End Date Tanner Mcdonnell MD [address] [place] [address] PCP - General Internal Medicine 04/09/25 Jeancarlos Santizo MD [address] [facility] [address] [place] [address] Referring Physician General Internal Medicine 03/21/23 documented as of this encounter
--- OUTSIDE RECORDS SUMMARY | 2025-05-22 10:24 | XMS_ITS | Clinical Summary ---
Author Organization [facility] Address [address] [place] [address] Care Team Providers Care Physical Therapy Aide Name Role Phone Tanner Mcdonnell MD Primary [...] 1 tablet by mouth Daily. Once daily-8mg [id number] mcg Active clobetasol propionate (TEMOVATE) 0.05 % [...] Back injection, she has seen a paint pourer 1. Tylenol PRN is ok as directed [...] Back injection, she has seen a paint pourer 1. Tylenol PRN is ok as directed [...] (03/18/2019): Added automatically from request for surgery [id number] Encounters Date Type Department Care Team Description 03/10/2025 9:45 AM EDT Office Visit [facility] RHEUMATOLOGY [address] [place] [address] Collin Bennett DO Primary osteoarthritis [...] Info) Description 09/11/2025 1:00 PM EST Appointment [facility] RHEUMATOLOGY DEXA [address] [place] [address] 09/11/2025 1:45 PM EST Office Visit [facility] RHEUMATOLOGY [address] [address] Collin Bennett DO [address] [id number] Health Maintenance Due Date Last Done Comments [...] history exists Medical Devices Implanted Type Area Receptionist Doctor'S Office Device Identifier Shelf Expiration Date Model / Serial / Lot Implant Implant Left: Knee Cmt Bone Palacos R Hi/Visc 1x40 - [id number] Implanted:Qty: 1 on 04/21/2019 by Yevgeniy Leonard MD at [facility] Implant Right: Knee [employer] [id number] 11/07/2022 [id number] / / [id number] Comp Fem/Kn Legion Oxinium Ps Sz3 Rt - [id number] Implanted:Qty: 1 on 04/21/2019 by Yevgeniy Leonard MD at [facility] Implant Right: Knee [employer] [id number] 12/06/2028 [id number] / / [id number] Base Tib/Kn Gen2 Nonpor Ti Sz2 Rt - [id number] Implanted:Qty: 1 on 04/21/2019 by Yevgeniy Leonard MD at [facility] Implant Right: Knee [employer] [id number] 02/08/2029 [id number] / / [id number] Pat Gen2 Biconvex 38x50mq - [id number] Implanted:Qty: 1 on 04/21/2019 by Yevgeniy Leonard MD at [facility] Implant Right: Knee [employer] [id number] 02/16/2029 [id number] / / [id number] Insrt Tib Flx Hi Gen2 Ps Sz1to2 15mm - [id number] Implanted:Qty: 1 on 04/21/2019 by Yevgeniy Leonard MD at [facility] Implant Right: Knee [employer] [id number] 03/31/2028 [id number] / / [id number] Totl Kn Martin Shaw Nephew - [id number] Implanted:Qty: 1 on 04/21/2019 by Yevgeniy Leonard MD at [facility] Implant Right: Knee SHAW [employer] NEPHEW [employer] LSN2 / / Insurance MEDICARE A & B Member Subscriber Plan / Payer (Ef fective 2010-Present) Name:Sarah Hansen Member ID:[id number] Relation to Subscriber:Self Name:Sarah Hansen Subscriber ID:[id number] Payer ID:[id number] Group ID:Not on file Type:Not on file Address: [facility] [id number] [employer] [id number] Advance Directives * CPR (Attempt to Resuscitate) (Latest Code Status on File) Date Activated Date Inactivated Comments 04/21/2019 4:33 PM 04/22/2019 5:03 PM Question Answer Comments Code Status (Patient has no pulse and is not breathing): CPR (Attempt to Resuscitate) Medical Interventions (Patie nt has pulse or is breathing): Full Level Of Support Discussed With: Patient Care Teams Physical Therapy Aide Relationship Specialty Start Date End Date Tanner Mcdonnell MD [address] [place] [id number] PCP - General Internal Medicine 03/10/25
--- OUTSIDE RECORDS SUMMARY | 2025-05-22 10:24 | XMS_ITS | Encounter Summary ---
Author Organization [employer] ([place], [place], [place], [place]) Address [address] [place] [address] Care Team Providers Care Ruby On Rails Software Developer Name Role Phone Jeancarlos Santizo MD Unavailable [phone] Tanner Mcdonnell MD Primary Care Provide [...] Date Joe rded Speak language other than Japanese at home Not on file 10/26/2023 Want [...] Info) Description 04/14/2026 11:45 AM EDT Appointment [address] [place] [address] documented as of this encounter Visit Diagnoses Not on filedocumented in this encounter Care Teams Ruby On Rails Software Developer Relationship Specialty Start Date End Date Tanner Mcdonnell MD [address] [place] [address] PCP - General Internal Medicine 04/09/25 Jeancarlos Santizo MD [address] [facility] [address] [place] [address] Referring Physician General Internal Medicine 03/21/23 documented as of this encounter
--- OUTSIDE RECORDS SUMMARY | 2025-05-22 10:24 | XMS_ITS | Referral Summary ---
Author Organization [employer] ([place], [place], [place], [place]) Address [address] [place] [address] Care Team Providers Care Garageman Name Role Phone Jeancarlos Santizo MD Unavailable [phone] Tanner Mcdonnell MD Primary Care Provide r Encounters Date Type Department Care Team Description 04/09/2025 Outside Orders [facility] Breast Care [address] [facility] [address] [place] [phone] Tanner Mcdonnell MD Visit for screening mammogram (Primary Dx) 04/09/2025 Travel 04/09/2025 10:56 AM EDT - 04/09/2025 11:59 PM EDT Hospital Encounter [facility] Breast [facility] [address] [facility] [address] [place] [address] Tanner Mcdonnell MD Screening for breast cancer [...] Date Joe rded Speak language other than Estonian at home Not on file 10/26/2023 Want [...] Info) Description 04/14/2026 11:45 AM EDT Appointment [address] [address] Procedures Procedure Name Priority Date/Time [...] COMMERCIAL MEDICARE PART A B Care Teams Garageman Relationship Specialty Start Date End Date Tanner Mcdonnell MD [address] [place] [address] PCP - General Internal Medicine 04/09/25 Jeancarlos Santizo MD [address] [place] [address] [phone] (work) Referring Physician General Internal Medicine 03/21/23
== END 2025-05-22 23:59 | disposition home or self-care (01) ==
LOC: RT 10:22
PROVIDERS: Visit Provider Physician Assistant
DX: I08.3 Combined rheumatic disorders of mitral, aortic and tricuspid valves (principal); I25.10 Atherosclerotic heart disease of native coronary artery without angina pectoris; I11.9 Hypertensive heart disease without heart failure; I27.20 Pulmonary hypertension, unspecified; R94.31 Abnormal electrocardiogram [ECG] [EKG]; R93.1 Abnormal findings on diagnostic imaging of heart and coronary circulation
CPT/HCPCS: 93306

== ENCOUNTER → 2025-06-17 13:32 | Outpatient (CLI) | payer MEDICARE, OTHER, SELFPAY ==
--- OUTSIDE RECORDS SUMMARY | 2025-06-17 13:38 | XMS_ITS | Clinical Summary ---
Author Organization [facility] Address [address] [place] [address] Care Team Providers Care Flexographic Press Plate Setter Name Role Phone Tanner Mcdonnell MD Primary [...] 1 tablet by mouth Daily. Once daily-8mg [id number] mcg Active clobetasol propionate (TEMOVATE) 0.05 % cream Apply 1 Application topically to the appropriate area as directed. 03/31/20 24 Active meclizine (ANTIVERT) 25 MG tablet Take 1 tablet by mouth As Needed. 06/24/20 24 Active metoprolol succinate XL (TOPROL-XL) 25 MG 24 hr tablet Take 1 tablet by mouth Daily. 12/10/19 Active triamcinolone (KENALOG) 0.025 % cream Apply [...] Citalopram, Back injection, she has seen a stained glass painter 1. Tylenol PRN is ok as [...] Citalopram, Back injection, she has seen a stained glass painter 1. Tylenol PRN is ok as [...] (03/18/2019): Added automatically from request for surgery [id number] Family History Medical History Relation Name Comments [...] Info) Description 09/11/2025 1:00 PM EST Appointment [facility] RHEUMATOLOGY DEXA [address] [phone] 09/11/2025 1:45 PM EST Office Visit [facility] RHEUMATOLOGY [address] [facility] [address] [place] [address] Collin Bennett DO [address] [address] [phone] (work) Health Maintenance Due Date Last Done Comments DXA SCAN 1945 Pneumococcal Vaccine 50+ (1 of 1 - PCV) 1995 ZOSTER VACCINE (1 of 2) 1995 ANNUAL WELLNESS VISIT 12/12/2018 HEPATITIS C SCREENING 12/12/2018 RSV Vaccine - Adults (1 - 1- dose 75+ series) 2020 COVID-19 Vaccine (2023-2 5 season) 2025 06/13/2024, 07/25/2023, 09/13/2022, Additional history exists INFLUENZA VACCINE 07/08/2025 TDAP/TD VACCINES (2 - Td or Tdap) 01/18/2033 023 MAMMOGRAM Discontinued 03/21/2023, 03/08, 03/20/2022, Additional history exists Medical Devices Implanted Type Area Layer Off Device Identifier Shelf Expiration Date Model / Serial / Lot Implant Implant Left: Knee Cmt Bone Palacos R Hi/Visc 1x40 - [id number] Implanted:Qty: 1 on 04/21/2019 by Yevgeniy Leonard MD at [facility] Implant Right: Knee [employer] [id number] 11/07/2022 [id number] / / [id number] Comp Fem/Kn Legion Oxinium Ps Sz3 Rt - [id number] Implanted:Qty: 1 on 04/21/2019 by Yevgeniy Leonard MD at [facility] Implant Right: Knee [employer] [id number] 12/06/2028 [id number] / / [id number] Base Tib/Kn Gen2 Nonpor Ti Sz2 Rt - [id number] Implanted:Qty: 1 on 04/21/2019 by Yevgeniy Leonard MD at [facility] Implant Right: Knee [employer] [id number] 02/08/2029 [id number] / / [id number] Pat Gen2 Biconvex 76d75su - [id number] Implanted:Qty: 1 on 04/21/2019 by Yevgeniy Leonard MD at [facility] Implant Right: Knee [employer] [id number] 02/16/2029 [id number] / / [id number] Insrt Tib Flx Hi Gen2 Ps Sz1to2 15mm - [id number] Implanted:Qty: 1 on 04/21/2019 by Yevgeniy Leonard MD at [facility] Implant Right: Knee [employer] [id number] 03/31/2028 [id number] / / [id number] Totl Kn Martin Shaw Nephew - [id number] Implanted:Qty: 1 on 04/21/2019 by Yevgeniy Leonard MD at [facility] Implant Right: Knee SHAW [employer] NEPHEW [employer] LSN2 / / Insurance MEDICARE A & B [facility] LIFE [place]ANCE [id number] Advance Directives * CPR (Attempt to Resuscitate) (Latest Code Status on File) Date Activated Date Inactivated Comments 04/21/2019 4:33 PM 04/22/2019 5:03 PM Question Answer Comments Code Status (Patient has no pulse and is not breathing): CPR (Attempt to Resuscitate) Medical Interventions (Patie nt has pulse or is breathing): Full Level Of Support Discussed With: Patient Care Teams Flexographic Press Plate Setter Relationship Specialty Start Date End Date Tanner Mcdonnell MD PCP - General Internal Medicine 03/10/25
== END ==
LOC: SL 13:34
PROVIDERS: Visit Provider Internal Medicine Pulmonary Disease
DX: R06.02 Shortness of breath (principal)
CPT/HCPCS: 94762

== ENCOUNTER 2025-08-17 14:10 | Outpatient (CLI) | payer MEDICARE, OTHER, SELFPAY ==
--- OUTSIDE RECORDS SUMMARY | 2025-08-17 14:13 | XMS_ITS | Data Portability ---
Author Organization [facility] AGUADA CLOSED Address [address] [place] [address] Care Team Providers Care Forging Engineer Name Role Phone TANNER HERNANDEZ Primary Care [...] along with management of multiple chronic conditions [email or web address] Not available 03/12/2025 06:58:35 05/12/2025 05/12/2025 Follow up 6 months/ pend path Not available 05/12/2025 10:48:21 05/18/2025 05/18/2025 Follow up 3-4 months [email or web address] Not available 05/18/2025 11:20:23 06/12/2025 06/12/2025 Sarah Hansen is a 79 year old female with fibromyalgia, hypertension, hyperlipidemi a, GERD, history of PE, osteopenia, anxiety, chronic vertigo/dizzi ness, history of total hysterectomy, history of bilateral total knee replacement. Today, she presents for follow-up regarding balance issues/dizzin ess. [email or web address] Not available 06/12/2025 12:20:20 Plan of Treatment Reminders Order Date Submit Date Provider Last Modified By Organization Details Last Modified Time Details Appointments RECHECK 2024 11:30A M TANNER HERNANDEZ MD Not available Not available Not available DERM ESTABLISH ED 2024 11:30A M GABRIELLE BOCANEGRA MD Not available Not available Not available Lab surgical pathology study 2024 025 [facility], [address] [place], [address], 05/13/2025 16:10:05 Referral None recorded. Procedures None recorded. Surgeries None recorded. Imaging MAMMO, screening , tomosynth esis, bilateral , w/ CAD 2024 025 [email or web address] [facility], [address] [place], [address], 03/26/2025 07:38:35 Medication Orders amlodipin e 2.5 mg tablet 2024 025 [facility], [address], [address], 06/12/2025 12:11:50 atorvasta tin 80 mg tablet 2024 025 [facility], [address], [place], [address], 03/12/2025 14:51:19 omeprazol e 20 mg capsule,d elayed release 2024 025 [facility], [address] , [place], [address], 03/12/2025 14:51:21 losartan 100 mg tablet 2024 025 [facility], [address] , [place], [address], 03/12/2025 14:51:21 metoprolo l succinate ER 25 mg tablet,ex tended release 24 hr 2024 025 [facility], [address] , [place], [address], 06/12/2025 12:10:43 citalopra m 20 mg tablet 2024 025 [facility], [address], [place], [address], 03/12/2025 14:51:23 bupropion HCl 150 mg tablet,12 hr sustained -release( smoking deterrent ) 2024 025 [facility], [address], [place], [address], 03/12/2025 14:51:19 Patient TargetsNo targets recorded. Patient Instructions Encounter Date Encounter Id Patient Instructions Last Modified By Organization Details Last Modified Time 03/12/2025 [id number] Your Screening Plan: 1. Colon Cancer Screening: [...] in 1 year for Medicare wellness exam [email or web address] Not available 03/12/2025 07:06:44 06/12/2025 [id number] Follow-up as scheduled in September [email or web address] Not available 06/12/2025 12:20:15 Reason for Referral None Reported. Results Created Date Observation Date Name Description Value Unit Range Abnormal Flag Note LastModifiedBy Organization Detail LastModifiedTime 02/06/20 25 02/05/2025 COMPL ETE BLOOD COUNT white blood cells 8.2 10*3/ uL 3.8-10 .8 normal Not Available [facility] [address] [place] [address], [address], 02/05/2025 15:53:04 02/06/20 25 02/05/2025 COMPL ETE BLOOD COUNT red blood cells 4.50 10*6/ uL 3.80-5 .20 normal Not Available [facility] [address] [place] [address], [address], 02/05/2025 15:53:04 02/06/20 25 02/05/2025 COMPL ETE BLOOD COUNT hemoglobin 13.2 g/dL 12.0-1 6.0 normal Not Available [facility] [address] [place] [address], [address], 02/05/2025 15:53:04 02/06/20 25 02/05/2025 COMPL ETE BLOOD COUNT hematocrit 37.4 % 35.0-4 7.0 normal Not Available [facility] [address] [place] [address], [address], 02/05/2025 15:53:04 02/06/20 25 02/05/2025 COMPL ETE BLOOD COUNT MCV 83 fL 80-100 normal Not Available [facility] [address] [place] [address], [address], 02/05/2025 15:53:04 02/06/20 25 02/05/2025 COMPL ETE BLOOD COUNT MCH 29 pg 26-35 normal Not Available [facility] [address] [place] [address], [address], 02/05/2025 15:53:04 02/06/20 25 02/05/2025 COMPL ETE BLOOD COUNT MCHC 35 g/dL 32-36 normal Not Available [facility] [address] [place] [address], [address], 02/05/2025 15:53:04 02/06/20 25 02/05/2025 COMPL ETE BLOOD COUNT RDW 13.9 % 11.0-1 5.0 normal Not Available [facility] [address] [place] [address], [address], 02/05/2025 15:53:04 02/06/20 25 02/05/2025 COMPL ETE BLOOD COUNT MPV 8.5 fL 6.2-10 .5 normal Not Available [facility] [address] [place] [address], [address], 02/05/2025 15:53:04 02/06/20 25 02/05/2025 COMPL ETE BLOOD COUNT platelet count 237 10*3/ uL 150-40 0 normal Not Available [facility] [address] [place] [address], [address], 02/05/2025 15:53:04 02/06/20 25 02/05/2025 COMPL ETE BLOOD COUNT neutrophil,a bsolute 4.0 10*3/ uL 1.6-8. 4 normal Not Available [facility] [address] [place] [address], [address], 02/05/2025 15:53:04 02/06/20 25 02/05/2025 COMPL ETE BLOOD COUNT lymphocyte,a bsolute 2.9 10*3/ uL 0.4-5. 1 normal Not Available [facility] [address] [place] [address], [address], 02/05/2025 15:53:04 02/06/20 25 02/05/2025 COMPL ETE BLOOD COUNT monocyte,abs olute 1.0 10*3/ uL 0.0-1. 2 normal Not Available [facility] [address] [place] [address], [address], 02/05/2025 15:53:04 02/06/20 25 02/05/2025 COMPL ETE BLOOD COUNT eosinophil,a bsolute 0.2 10*3/ uL 0.0-0. 8 normal Not Available [facility] [address] [place] [address], [address], 02/05/2025 15:53:04 02/06/20 25 02/05/2025 COMPL ETE BLOOD COUNT basophil,abs olute 0.1 10*3/ uL 0.0-0. 3 normal Not Available [facility] [address] [place] [address], [address], 02/05/2025 15:53:04 02/06/20 25 02/05/2025 COMPL ETE BLOOD COUNT % neutrophils 48.4 % 42.0-7 8.0 normal Not Available [facility] [address] [place] [address], [address], 02/05/2025 15:53:04 02/06/20 25 02/05/2025 COMPL ETE BLOOD COUNT % lymphocytes 35.8 % 11.0-4 7.0 normal Not Available [facility] [address] [place] [address], [address], 02/05/2025 15:53:04 02/06/20 25 02/05/2025 COMPL ETE BLOOD COUNT % monocytes 12.5 % 0.0-11 .0 high Not Available [facility] [address] [place] [address], [address], 02/05/2025 15:53:04 02/06/20 25 02/05/2025 COMPL ETE BLOOD COUNT % eosinophils 2.5 % 0.0-7. 0 normal Not Available [facility] [address] [place] [address], [address], 02/05/2025 15:53:04 02/06/20 25 02/05/2025 COMPL ETE BLOOD COUNT % basophils 0.8 % 0.0-3. 0 normal Not Available [facility] [address] [place] [address], [address], 02/05/2025 15:53:04 02/06/20 25 02/05/2025 COMPL ETE BLOOD COUNT nucleated red cells 0.0 % 0.0-0. 9 normal Not Available [facility] [address] [place] [address], [address], 02/05/2025 15:53:04 02/06/20 25 02/05/2025 COMPL ETE BLOOD COUNT nucleated RBCs, absolute 0.00 10*3/ uL not estab. normal Not Available [facility] [address] [place] [address], [address], 02/05/2025 15:53:04 02/06/20 25 02/05/2025 GLYCO HEMOG LOBIN A1C glyco HGB A1C 5.6 % 0.0-5. 6 normal Not Available [facility] [address] [place] [address], [address], 02/05/2025 16:04:00 02/06/20 25 02/05/2025 GLYCO HEMOG LOBIN A1C estimated avg. glucose 114 mg/dL _(wiliam c) normal A1c value s betwe en 5.7% to 6.4% indic ate predi abete s. Resul ts 6.5% or great er is diagn ostic of diabe rose. Ameri can Diabe rose Assoc iatio n (diab etes. org) Not Available [facility] [address] [place] [address], [address], 02/05/2025 16:04:00 02/06/20 25 02/05/2025 TSH WITH REFLE X FT4 TSH with reflex FT4 1.500 u[IU] /mL 0.270- 4.200 normal Not Available [facility] [address] [place] [address], [address], 02/05/2025 16:05:22 02/06/20 25 02/05/2025 LIPID PROFI LE HDL cholesterol 50 mg/dL 50-242 normal Not Available [facility] [address] [place] [address], [address], 02/05/2025 16:09:39 02/06/20 25 02/05/2025 LIPID PROFI LE triglyceride s 117 mg/dL 0-149 normal TRIGL YCERI DE RANGE S DORINDA L: < 150 BORDE RLINE HIGH: 150 - 199 HIGH: 200 - 499 VERY HIGH: > OR = 500 Not Available [facility] [address] [place] [address], [address], 02/05/2025 16:09:39 02/06/20 25 02/05/2025 LIPID PROFI LE cholesterol 136 mg/dL 0-199 normal RHONDA STERO L (TOTA L) RANGE S BRITTANY ABLE: < 200 BORDE RLINE : 200 - 239 HIGHE R RISK: > 239 Not Available [facility] [address] [place] [address], [address], 02/05/2025 16:09:39 02/06/20 25 02/05/2025 LIPID PROFI LE LDL cholesterol 63 mg/dL _(wiliam c) 0-99 normal LDL RHONDA STERO L RANGE S OPTIM AL: < 100 NEAR/ ABOVE OPTIM AL: 100 - 129 BORDE RLINE HIGH: 130 - 159 HIGH: 160 - 189 VERY HIGH: > OR = 190 Not Available [facility] [address] [place] [address], [address], 02/05/2025 16:09:39 02/06/20 25 02/05/2025 LIPID PROFI LE chol/HDL ratio (calc) 2.7 mg/dL normal NO DORINDA L RANGE ESTAB LISHE D FOR RHONDA STERO L/HDL RATIO (CALC ULATE D). Not Available [facility] [address] [place] [address], [address], 02/05/2025 16:09:39 02/06/20 25 02/05/2025 COMP. METAB OLIC PANEL glucose 108 mg/dL 74-100 high Not Available [facility] [address] [place] [address], [address], 02/05/2025 16:09:41 02/06/20 25 02/05/2025 COMP. METAB OLIC PANEL blood urea nitrogen 12 mg/dL 6-20 normal Not Available [facility] [address] [place] [address], [address], 02/05/2025 16:09:41 02/06/20 25 02/05/2025 COMP. METAB OLIC PANEL creatinine 0.58 mg/dL 0.50-0 .95 normal Not Available [facility] [address] [place] [address], [address], 02/05/2025 16:09:41 02/06/20 25 02/05/2025 COMP. METAB OLIC PANEL BUN/creatini ne ratio 21 (calc ) 10-20 high Not Available [facility] [address] [place] [address], [address], 02/05/2025 16:09:41 02/06/20 25 02/05/2025 COMP. METAB OLIC PANEL sodium 141 mmol/ L 136-14 5 normal Not Available [facility] [address] [place] [address], [address], 02/05/2025 16:09:41 02/06/20 25 02/05/2025 COMP. METAB OLIC PANEL potassium 4.0 mmol/ L 3.4-5. 0 normal Not Available [facility] [address] [place] [address], [address], 02/05/2025 16:09:41 02/06/20 25 02/05/2025 COMP. METAB OLIC PANEL chloride 104 mmol/ L 98-107 normal Not Available [facility] [address] [place] [address], [address], 02/05/2025 16:09:41 02/06/20 25 02/05/2025 COMP. METAB OLIC PANEL carbon dioxide 24 mmol/ L 22-31 normal Not Available [facility] [address] [place] [address], [address], 02/05/2025 16:09:41 02/06/20 25 02/05/2025 COMP. METAB OLIC PANEL anion gap 13 (calc ) 7-25 normal Not Available [facility] [address] [place] [address], [address], 02/05/2025 16:09:41 02/06/20 25 02/05/2025 COMP. METAB OLIC PANEL calcium 9.4 mg/dL 8.6-10 .2 normal Not Available [facility] [address] [place] [address], [address], 02/05/2025 16:09:41 02/06/20 25 02/05/2025 COMP. METAB OLIC PANEL total protein 7.1 g/dL 6.4-8. 3 normal Not Available [facility] [address] [place] [address], [address], 02/05/2025 16:09:41 02/06/20 25 02/05/2025 COMP. METAB OLIC PANEL albumin 4.1 g/dL 3.5-5. 2 normal Not Available [facility] [address] [place] [address], [address], 02/05/2025 16:09:41 02/06/20 25 02/05/2025 COMP. METAB OLIC PANEL globulin 3.0 1.5-4. 5 normal Not Available [facility] [address] [place] [address], [address], 02/05/2025 16:09:41 02/06/20 25 02/05/2025 COMP. METAB OLIC PANEL albumin/glob ulin ratio 1.4 (calc ) 1.1-2. 5 normal Not Available [facility] [address] [place] [address], [address], 02/05/2025 16:09:41 02/06/20 25 02/05/2025 COMP. METAB OLIC PANEL bilirubin, total 0.7 mg/dL 0.1-1. 2 normal Not Available [facility] [address] [place] [address], [address], 02/05/2025 16:09:41 02/06/20 25 02/05/2025 COMP. METAB OLIC PANEL alkaline phosphatase 114 U/L 30-121 normal Not Available [facility] [address] [place], [address], 02/05/2025 16:09:41 02/06/20 25 02/05/2025 COMP. METAB OLIC PANEL AST 26 U/L 0-32 normal Not Available [facility] [address] [place], [address], 02/05/2025 16:09:41 02/06/20 25 02/05/2025 COMP. METAB OLIC PANEL ALT 23 U/L 0-33 normal Not Available [facility] [address] [place], [address], 02/05/2025 16:09:41 02/06/20 25 02/05/2025 COMP. METAB OLIC PANEL GFR 92 >= 60 normal NOT E New calcu latio n for GFR (CKD- EPI 2020) is formu lated witho ut race adjus tment facto rs at the recom menda tion of the Maliha Loepz y Abraham atanthony and Amwilfredo Loomise ty of Nephr ology . This calcu latio n has not been valid ated in pregn ant women . For pedia tric patie nts refer to https ://rafa terry.o rg/pr bradford delgadillo s/KDO QI/gf r_cal culat orPed Not Available [facility] [address] [place], [address], 02/05/2025 16:09:41 02/06/20 25 02/05/2025 B12/F OLIC ACID PANEL folic acid 13.4 NG/mL 4.6-34 .8 normal Not Available [facility] [address] [place], [address], 02/05/2025 16:14:15 02/06/20 25 02/05/2025 B12/F OLIC ACID PANEL vitamin B12 946 pg/mL 232-12 45 normal Not Available [facility] [address] [place] [address], [address], 02/05/2025 16:14:15 02/06/2002/05/2025 URINA LYSIS color YELLOW normal Not Available [facility] [address] [place] [address], [address], 02/05/2025 17:29:22 02/06/20 25 02/05/2025 URINA LYSIS appearance CLEAR normal Not Available [facility] [address] [place] [address], [address], 02/05/2025 17:29:22 02/06/20 25 02/05/2025 URINA LYSIS glucose NORMAL mg/dL normal normal Not Available [facility] [address] [place] [address], [address], 02/05/2025 17:29:22 02/06/20 25 02/05/2025 URINA LYSIS bilirubin NEGATI VE mg/dL negati ve normal Not Available [facility] [address] [place] [address], [address], 02/05/2025 17:29:22 02/06/20 25 02/05/2025 URINA LYSIS ketone NEGATI VE mg/dL negati ve normal Not Available [facility] [address] [place] [address], [address], 02/05/2025 17:29:22 02/06/20 25 02/05/2025 URINA LYSIS specific gravity 1.015 1.003- 1.035 normal Not Available [facility] [address] [place] [address], [address], 02/05/2025 17:29:22 02/06/20 25 02/05/2025 URINA LYSIS blood 25 /uL negati ve abnormal Not Available [facility] [address] [place] [address], [address], 02/05/2025 17:29:22 02/06/20 25 02/05/2025 URINA LYSIS pH 6 5.0 - 8.0 normal Not Available [facility] [address] [place] [address], [address], 02/05/2025 17:29:22 02/06/20 25 02/05/2025 URINA LYSIS protein 15 mg/dL negati ve abnormal Not Available [facility] [address] [place] [address], [address], 02/05/2025 17:29:22 02/06/20 25 02/05/2025 URINA LYSIS urobilinogen NORMAL mg/dL normal normal Not Available [facility] [address] [place] [address], [address], 02/05/2025 17:29:22 02/06/20 25 02/05/2025 URINA LYSIS nitrite NEGATI VE negati ve normal Not Available [facility] [address] [place] [address], [address], 02/05/2025 17:29:22 02/06/20 25 02/05/2025 URINA LYSIS leukocyte esterase 100 /uL negati ve abnormal Pleas e advis e if cultu re is brittany ed - notif y the lab at [phone]. Not Available [facility] [address] [place] [address], [address], 02/05/2025 17:29:22 02/06/20 25 02/05/2025 URINA LYSIS WBC, urine TNTC 0-5/hp f abnormal Occ. WBC clump s noted . Not Available [facility] [address] [place] [address], [address], 02/05/2025 17:29:22 02/06/20 25 02/05/2025 URINA LYSIS squamous epi. cells 0-5 0-5/hp f normal Not Available [facility] [address] [place] [address], [address], 02/05/2025 17:29:22 05/12/20 25 05/12/2025 SURGI WILIAM surgical SEE BELOW abnormal Surgi wiliam Patho logy Repor t NAME: MARTIN HENDRICKS PATH: [id number] DATE of : 08/29 5 Copy to: Diagn osis: Left upper butto ck: Basal cell carci noma, super ficia l type; incom plete ly excis ed. SOURC E OF SPECI MEN: SKIN BIOPS Y, LEFT UPPER BUTTO CK CLINI WILIAM INFOR MATIO N: D48.5 SPECI MEN COLLE CTION NOTES : R/O CA Gross Descr iptio n: Patie nt's name and date of verif ied. Recei lois in forma satinder label ed with the patie nt's name and desig nated left upper butto ck is a shave biops y of skin (0.6 x 0.4 x 0.1 cm). The epide rmal surfa ce is pale- landry/w kyler, sligh tly rough ened, and faint ly nodul ar. The miguel angel n is inked blue. The speci men is bisec dorota and entir sid submi tted in one casse tte label ed A1. SB 05/12 08:10 PM Micro scopi c Descr iptio n: A micro scopi c exami natio n has been perfo rmed and the resul t(s) are as noted above . BRANT THOMAS MD Nusrat d Out Date: 05/13 16:09 Page 1 of 1 Not Available [facility] [address] [place] [address], [place], [address], 05/13/2025 16:10:05 02/26/20 25 02/24/2025 audio gram No observ ation record ed. [email or web address] Not Available 02/2025 14:45:24 03/18/20 25 03/18/2025 imagi ng/di agnos tic resul t No observ ation record ed. Not Available 02/2025 12:20:58 04/12/20 25 04/09/2025 MAMMO , scree jayjay, tomos ynthe sis, bilat eral, w/ CAD No observ ation record ed. [email or web address] [facility] [address], [place], [address], 06/12/2025 12:20:57 Result Notes None recorded. Problems Name Problem SNOMED Code Status Onset Date Resolution Date Notes Provider Name and Address Organization Details Recorded Time Essential hypertension 61536160 Active 2024 TANNER HERNANDEZ MD [address] [place] [address], [address], [facility] 07:01:53 Anxiety 46340606 Active 2024 TANNER HERNANDEZ MD [address] [place] [address], [address], [facility] 07:01:54 Mixed hyperlipidemia 067072970 Active 2024 TANNER HERNANDEZ MD [address] [place] [address], [address], [facility] 07:01:59 Primary fibromyalgia syndrome 07291198 Active 2024 TANNER HERNANDEZ MD [address] [place] [address], [address], [facility] 07:02:02 Osteopenia 068694777 Active 2024 TANNER HERNANDEZ MD [address] [place] [address], [address], [facility] 07:02:04 History of pulmonary embolus 410253294 Active 2024 TANNER HERNANDEZ MD [address] [place] [address], [address], [facility] 13:32:02 Gastroesophage al reflux disease without esophagitis 058998290 Active 2024 TANNER HERNANDEZ MD [address] [place] [address], [address], [facility] 5 07:01:56 History of Spinal surgery 914850990 Active 2024 TANNER HERNANDEZ MD [address] [place] [address], [address], [facility] 13:32:06 Memory impairment 699676881 Active 2024 TANNER HERNANDEZ MD [address] [place] [address], [address], [facility] 13:56:21 Adult health examination Active 2024 TANNER HERNANDEZ MD [address] [place] [address], [address], [facility] 13:56:23 Problem Notes Documentation Provider Name and Address Organization Details Recorded Time Registered Nurse Fetal Consult Not e : [facility] [address] [place] [id number], Darlene G (id #[id number], : 1945) [facility] [address] [place] [address] Date: 02/24/2025RE: Sarah Tyrone, : 1945, PT ID #[id number] Hernandez MD, I would like to thank you for referring Sarah Hansen to our practice for consultation and evaluation. I have enclosed a copy of the office evaluation for your records. Sincerely, Electronically Signed by: ELKIN GREGORY MDEncounter Reason/DateNone recorded 02/24/2025 - 03:00PM - ENT SB History of Present IllnessRef: Tanner Hernandez MDChief Complaint: DizzinessTiming: Years, worsened over the past [...] be normal. The patient tolerated the procedure well.Ashby-Hallpike:Ana-Hallpike Maneuvers Head Right: negative Head Left: negative [...] BOCANEGRA MD for DERMATOLOGY VISIT at DERMATOLOGY [facility] on 05/12/2025 at 09:30 AM TANNER HERNANDEZ MD [address] [place], [address], [facility] 03/12/2025 14:45:25 Procedures Surgical History Date Name Laterality Status Provider Name and Address Organization Details Recorded Time 05/18/20 25 Destruction MN Lesion; trunk, arm, leg completed Daphney Gautam [facility] 05/18/2025 11:57:29 05/12/20 25 Biopsy Skin Lesion; Tangential completed Daphney Gautam [facility] 05/12/2025 10:47:58 05/12/20 25 Destruction Premalignant Lesion(s) completed Daphney Gautam [facility] 05/12/2025 10:44:17 02/25/20 25 Tympanogram completed TOMMY MEYRS, CCC-A [address] [place], [address], [facility] 02/24/2025 16:10:49 02/25/20 25 Audiogram completed TOMMY MYERS CCC-A [address] [place], [address], [facility] 02/24/2025 16:10:46 02/25/20 25 Ana-Hallpike completed Ana Diggs [facility] 02/24/2025 15:55:23 02/25/20 25 Cerumen removal - Instruments, Bilateral completed Ana Diggs [facility] 02/24/2025 15:54:12 01/31/20 22 Destruction Premalignant Lesion(s) completed Eneida Mckeon [facility] 01/30/2022 09:09:33 01/31/20 22 Destruction BN Lesions completed Eneida Linda [facility] 01/30/2022 09:09:47 01/31/20 22 Shave Lesion; face, ear, eyelid, nose, lip, muc memb completed GABRIELLE BOCANEGRA MD [address] [place], [address], [facility] 02/03/2022 07:57:17 02/01/20 21 Shave Lesion; trunk, arm, leg completed GABRIELLE BOCANEGRA MD [address] [place], [address], [facility] 02/03/2021 21:40:45 02/01/20 21 Destruction Premalignant Lesion(s) completed Silvina Hanna [facility] [facility] 01[facility]31[facility]21 10:52:55 10/12/19 21 Destruction Premalignant Lesion(s) completed GABRIELLE BOCANEGRA MD [address] [place], [address], [facility] 10/12/2020 12:54:51 04/16/20 20 Suture/Staple removal completed Silvina [facility] 04/16/2020 10:26:33 04/05/20 20 Excision MN Lesion; trunk, arm, leg completed Silvina Yanezchey [facility] 04/05/2020 17:05:37 03/23/20 20 Destruction MN Lesion; trunk, arm, leg completed GABRIELLE BOCANEGRA MD [address] [place], [address] 04/01/2020 22:53:39 03/23/20 20 Destruction Premalignant Lesion(s) completed Silvina Hanna [facility] 03/23/2020 11:35:49 01/22/20 18 Destruction Premalignant Lesion(s) completed Silvina Hanna [facility] 01/21/2018 10:55:47 Other completed Not Available [facility] 02/05/2025 12:55:10 Total Hysterectomy completed Not Available [facility] 02/05/2025 12:55:10 Back Surgery completed TANNER HERNANDEZ MD [address] [place], [address], [facility] 02/05/2025 13:17:05 Cataract Surgery completed Not Available [facility] 02/05/2025 12:55:10 Cholecystectomy completed Not Available [facility] 02/05/2025 12:55:10 Flexible Sigmoidoscopy completed Not Available [facility] 02/05/2025 12:55:10 Hysterectomy completed Not Available [facility] 02/05/2025 12:55:10 Tonsillectomy completed Not Available [facility] 02/05/2025 12:55:10 total knee replacement completed TANNER HERNANDEZ MD [address] [place], [address], [facility] 02/05/2025 13:18:15 Joint Replacement completed Not Available [facility] 03/12/2025 13:49:12 Knee Surgery completed Not Available [facility] 03/12/2025 13:49:12 Imaging Results None recorded. Procedure Notes None recorded. Medical Equipment None Reported. Allergies Allergen ID Allergen Name Allergen Category Reaction Reaction Severity Criticality Documentation Date Start Date Code Code System Note Provider Name and Address Organization Details Recorded Time 961535 morphine sulfate medicatio n Not available Not available Not available 09/01/20162008 61388 RxNorm Comme nt: Creat ed By: Branden mcmillan;Cr eated Date: 2008 12:22 :34 PM; Not Available [facility] 6 03:16:33 127610 aspirin / caffeine / propoxyph katherine medicatio n Not available Not available Not available 09/01/20162008 95524 8 RxNorm Comme nt: Creat ed By: Branden mcmillan;Cr eated Date: 2008 12:22 :47 PM; Not Available [facility] 6 05:50:01 847476 thimerosa l medicatio n Not available Not available Not available 05/13/2024 50373 RxNorm Unabl e to get flu shot [facility] 4 09:48:49 Medications Name Sig Start [...] completed Not Available Not Available Not Available amlodipin e 2.5 mg tablet Take 1 tablet every day by oral route. 2024 active Not Available Not Available Not Avai lable acetamino phen 300 mg-codein e 30 mg tablet Take 1 tablet every day by oral route as needed. 06/12 completed pain manageme nt- Sharri Herrera Not Available [...] 1 tablet every day by oral route. 06/12 completed Not Available Not Available Not Available lisinopri l 40 mg tablet Bedtime [...] day by oral route. active rheumato logy- [facility] Not Available Not Available Not Available atorvasta [...] tablet twice a day by oral route. 06/12 completed pulmonol ogy Not Available Not Available Not Available bupropion HCl 150 mg tablet,12 hr sustained -release( smoking deterrent ) Take 1 tablet every day by oral route. 2024 active Not Available Not Available Not Avai dara Vitalrichi Date Recorded Body height Body mass index (BMI) Body weight Provider Name and Address Organization Details Last Updated DateTime 02/24/2025 149.86 cm 26.1 kg/m2 90258.42 g Cha Heapril [facility] 02/24/2025 15:33:24 Date Recorded Body height Body mass index (BMI) Body weight Heart rate Oxygen saturation Oxygen saturation in Arterial blood by Pulse oximetry Systolic And Diastolic Provider Name and Address Organization Details Last Updated DateTime 149.86 cm 26 kg/m2 64013.6 2 g 62 /min 99 % 99 % 130/78 mm[Hg] Harris Shaw [facility] 14:27:13 Date Recorded Body height Body mass index (BMI) Body weight Oxygen saturation Oxygen saturation in Arterial blood by Pulse oximetry Heart rate Systolic And Diastolic Provider Name and Address Organization Details Last Updated DateTime 149.86 cm 25.9 kg/m2 17431.2 2 g 99 % 99 % 60 /min 156/81 mm[Hg] Peter dinero [facility] 11:48:39 Social History Question Answer Notes LastModified by Organizat ion Details LastModified Time Tobacco Smoking Status Former Smoker Not Available [employer] 02/05/2025 12:55:10 What Is Your Level Of Caffeine Consumption? Moderate [email or web address] Information not available 02/05/2025 When Did You Quit Smoking? 16+yearssince lastcigarette [email or web address] Information not available 02/05/2025 What Was The Date Of Your Most Recent Tobacco Screening? 03/12/2025 [email or web address] Information not available 03/12/2025 What Is Your [...] Maternal Grandmother Hypertensive disorder [email or web address] Not available 05/01/ 2025 12:55:10 Maternal Grandmother Dementia [email or web address] Not available [...] mcg/0.3 mL dose 11/12/2020 [facility] 02/05/2025 13:13:02 COVID-19, mRNA, LNP-S, PF, 30 mcg/0.3 mL dose 12/04/2020 completed Jefferina Page null, [facility] 02/05/2025 13:13:02 COVID-19, mRNA, LNP-S, PF, 30 mcg/0.3 mL dose 07/06/2021 completed Jefferina Page null, [facility] 02/05/2025 13:13:02 COVID-19, mRNA, LNP-S, PF, 30 mcg/0.3 mL dose, byron-sucrose 03/21/2022 completed Jefferina Page null, [facility] 02/05/2025 13:13:02 COVID-19, mRNA, LNP-S, PF, 30 mcg/0.3 mL dose, byron-sucrose 06/28/2022 completed Jefferina Page null, [facility] 02/05/2025 13:13:02 COVID-19, mRNA, LNP-S, bivalent, PF, 30 mcg/0.3 mL dose 09/13/2022 completed Jefferina Page null, [facility] 02/05/2025 13:13:02 RSV, recombinant, protein subunit RSVpreF, adjuvant reconstituted, 0.5 mL, PF 07/14/2023 completed Jefferina Page null, [facility] 02/05/2025 13:13:02 COVID-19, mRNA, LNP-S, PF, byron-sucrose, 30 mcg/0.3 mL 07/25/2023 completed Jefferina Page null, [facility] 02/05/2025 13:13:02 Tdap 01/18/2023 completed Jefferina Page null, [facility] 02/05/2025 13:13:02 COVID-19, mRNA, LNP-S, PF, byron-sucrose, 30 mcg/0.3 mL 06/13/2024 completed TANNER HERNANDEZ MD [address] [place] [address], [address], [facility] 03/12/2025 06:58:52 Past Encounters Encounter ID Performer Location Encounter Start Date Encounter Closed Date Diagnosis/Indication Diagnosis SNOMED-CT Code Diagnosis ICD10 Code Diagnosis IMO Codes Diagnosis Note [id number] MD CIRO VILLASE[facility]OR [address] [place] [address] 11/14/2016 08:52:52 11/14/2016 09:58:05 History of malignant basal cell neoplasm of skin 998595595 Z85.828 Status post BCC on left dorsal forearm - doing well Lentigo 396446862 L81.4 reassuranc e 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 worsening, Avodart was helpful but ins wont cover this so she has elected to wear a wig Hemangioma 763547352 D18 .00 reassuranc e [id number] MD [facility] [address] [place] [address] 11/26/2017 11:32:45 11/26/2017 13:56:55 History of malignant basal cell neoplasm of skin 257283704 Z85.828 Status post BCC on left dorsal forearm - doing well Lentigo 618685450 L81.4 reassuranc e Postmenopa usal frontal fibrosing alopecia 200151260 L66.1 Avodart was helpful but ins wont cover this so she has elected to wear a wig Actinic keratosis 007 L57.0 Contact dermatitis 29336 004 L25.9 prob clothing related, using Tide clear Hold on patch tests for now. [id number] MD CIRO VILLASEÑOR [facility] [address] [place] [address] 01/21/2018 10:21:16 01/21/2018 13:19:04 History of malignant basal cell neoplasm of skin 828377091 Z85.828 Status post BCC on left dorsal forearm - doing well Lentigo 967277459 L81.4 reassuranc e Actinic keratosis [address] x 1 [id number] MD CIRO VILLASEÑOR [facility] [address] [place] [address] 01/27/2019 10:35:58 01/27/2019 12:32:12 History of malignant basal cell neoplasm of skin 982042643 Z85.828 Status post BCC on left dorsal forearm - doing well Lentigo 230455977 L81.4 Reassuranc e and education regarding the disorder and options. Erythema of skin 1212995 08 L53.9 Reassuranc e and education regarding the disorder and options. Neoplasm o f uncertain behavior of skin 02724592 D48.5 Left upper buttock has a 1 cm red scaly slightly thickened papule--wa tch Hemangioma 826384205 D18 .00 Reassuranc e and education regarding the disorder and options. Postmenopa usal frontal fibrosing alopecia 756948352 L66.1 Avodart was helpful but ins wont cover this so she has elected to wear a wig [id number] MD CIRO VILLASEÑOR G[facility] [address] [place] [address] 03/23/2020 11:11:19 03/23/2020 13:11:30 History of malignant basal cell neoplasm of skin 346780533 Z85.828 Status post BCC on left dorsal forearm - doing well Lentigo 120487638 L81.4 Reassuranc e Erythema of skin 2206434 08 L53.9 Reassuranc e Neoplasm o f uncertain behavior of skin 65134001 D48.5 Hemangioma 016206363 D18 .00 Reassuranc e Postmenopa usal frontal fibrosing alopecia 765449236 L66.1 Avodart was helpful but ins wont cover this so she has elected to wear a wig Actinic keratosis 701020 [address] x 1 Malignant melanoma of upper limb 376093157 C43.62 Left biceps - 6 mm r/o AN shave removal and base destroyed with ED [id number] MD CIRO VILLASEÑOR [facility] [address] [place] [address] 04/05/2020 16:11:23 04/06/2020 11:13:41 History of malignant basal cell neoplasm of skin 173484274 Z85.828 Status post BCC on left dorsal forearm - doing well Malignant melanoma of upper limb 377538173 C43.62 Left biceps 0.5 mm, fairly non-aggess beau features excised - tag: proximal ck margins f/u 12 days for sutures f/u 4 months for FSE [id number] MD CIRO VILLASEÑOR [facility] [address] [place] [address] 04/16/2020 10:23:35 04/16/2020 12:20:47 History of malignant basal cell neoplasm of skin 040273900 Z85.828 Status post BCC on left dorsal forearm - doing well Malignant melanoma of upper limb 608704099 C43.62 Left biceps 0.5 mm, fairly non-aggres sive features f/u 4 months for FSE Removal of suture 655076 01 Z48.02 [id number] MD CIRO VILLASE[facility]OR [place] [address] [place] [address] 10/12/2020 11:17:22 10/12/2020 11:59:32 History of malignant basal cell neoplasm of skin 004876864 Z85.828 Status post BCC on left dorsal forearm - doing well History of Malignant melanoma 176813286 Z85.89 S/P MM on left biceps 0.5 mm 04/2020 - doing well Lentiginosis 308386439 L 81.4 Reassuranc e and education regarding the disorder and options. Raised quinn orrheic keratosis 5249850028 60877 L82.1 Reassuranc e and education regarding the disorder and options. Frontal fi brosing alopecia 680147417 L66.8 Reassuranc e and education regarding the disorder and options. Actinic keratosis [address] x 1 Multiple b enign melanocytic nevi 563765193 D22.9 Reassuranc e and education regarding the disorder and options. [id number] GABRIELLE BOCANEGRA MD [facility] [address] [place] [address] 01/31/2021 10:40:02 01/31/2021 12:24:10 History of malignant basal cell neoplasm of skin 150753588 Z85.828 Status post BCC on left dorsal forearm - doing well History of Malignant melanoma 026437090 Z85.89 S/P MM on left biceps 0.5 mm 04/2020 - doing well Lentiginosis 349412563 L 81.4 Reassuranc e Recommende d Equate Ultra Sunscreen 30+ and sun protecting hats/cloth ing Raised quinn orrheic keratosis 8581133300 71939 L82.1 Reassuranc e Frontal fi brosing alopecia 073315392 L66.8 Reassuranc e Actinic keratosis [address] x 1 Neoplasm o f uncertain behavior of skin 28547744 D48.5 ? ISK vs BCC r/o MM left biceps distally shave removal and base destroyed with ED [id number] GABRIELLE BOCANEGRA MD [facility] [address] [place] [address] 04/12/2021 11:35:27 04/12/2021 12:07:54 History of malignant basal cell neoplasm of skin 798703136 Z85.828 Status post BCC on left dorsal forearm - doing well History of Malignant melanoma 373799709 Z85.89 S/P MM on left biceps 0.5 mm 04/2020 - doing well Lentiginosis 353148174 L 81.4 Reassuranc e Recommende d Equate Ultra Sunscreen 30+ and sun protecting hats/cloth ing Raised quinn orrheic keratosis 7615805612 92761 L82.1 Reassuranc e Frontal fi brosing alopecia 317248335 L66.8 Reassuranc e Neoplasm o f uncertain behavior of skin 38672935 D48.5 left lower back - ? growth vs rash, doubt cancer watch, return early if worse [id number] MD [facility] [place] [address] [place] [address] 11/21/2021 15:27:33 11/21/2021 15:54:09 History of malignant basal cell neoplasm of skin 979555219 Z85.828 Status post BCC on left dorsal forearm - doing well History of Malignant melanoma 441683473 Z85.89 S/P MM on left biceps 0.5 mm 04/2020 - doing well Lentiginosis 021937834 L 81.4 Reassuranc e Recommende d Equate Ultra Sunscreen 30+ and sun protecting hats/cloth ing Frontal fi brosing alopecia 399415358 L66.8 Reassuranc e Neoplasm o f uncertain behavior of skin 45511967 D48.5 left lower back - ? growth vs rash, doubt cancer watch, return early if worseno change Contact dermatitis 12146 004 L25.9 skin on face and chest flared upHold on patch tests for now.will start HCC 2.5 % cream BID x 2 weeks40 Kenalog IM given todayre-ck in 1 mth if not better in week or so contact office [id number] MD [facility] [place] [address] [place] [address] 01/30/2022 08:41:03 01/30/2022 10:07:52 History of malignant basal cell neoplasm of skin 796488447 Z85.828 Status post BCC on left dorsal forearm - doing well History of Malignant melanoma 051421671 Z85.89 S/P MM on left biceps 0.5 mm 04/2020 - doing well Lentiginosis 173476229 L 81.4 Reassuranc e Recommende d Equate Ultra Sunscreen 30+ and sun protecting hats/cloth ing Contact dermatitis 35566 004 L25.9 face and chest are clear todaytreat ed with Kenalog 40 mg and Hydrocorti sone cream - much betterHx genital/pe rianal rash better with clobetasol , STITCH WHEELER did bx, told it was eczema -- edu re clob use Discussed patch testing if flares again Inflamed s eborrheic keratosis 426767519 L82.0 Education, then cryodestru ction with liquid nitrogen (LN) x 1 Neoplasm o f uncertain behavior of skin 13581299 D48.5 Right angle of jaw - Education, thenshave removaland base destroyed with electrodes sication. Actinic keratosis 007 L57.0 Education, then cryodestru ction with liquid nitrogen (LN) x 3 [id number] GABRIELLE BOCANEGRA MD [facility] [address] [place] [address] 05/13/2024 09:29:48 05/13/2024 10:34:23 History of malignant basal cell neoplasm of skin 681963302 Z85.828 Status post BCC on left dorsal forearm - doing well History of Malignant melanoma 319852398 Z85.89 S/P MM on left biceps 0.5 mm 04/2020 - doing well Lentiginosis 912466722 L 81.4 Reassuranc e Recommende d Equate Ultra Sunscreen 30+ and sun protecting hats/cloth ing Raised quinn orrheic keratosis 2623012712 69216 L82.1 Reassuranc e Neoplasm o f uncertain behavior of skin 85143496 D48.5 Lt lower back has an irregular dull red 2cm patchNo change per pt? sBCC but bleedingWa [facility] Dermatofibroma 615458598 D23.9 Reassuranc e Contact dermatitis 27400 004 L25.9 Anterior axillary folds and slightly towards center? cause--katia thing, otherDiscu ssed dx and tx options including topical steroids, biopsy, allergy testStart TAC 0.025% BID, taper as tolerated [id number] TANNER HERNANDEZ MD [facility] [address] [place] [address] 02/05/2025 12:55:09 02/05/2025 14:02:27 Anxiety 69867558 F41.9 36831 Citalopram 20 mg daily, Wellbutrin 150 mg SR daily - Stable. Continue current medication s without changes Essential hypertension 07610361 I10 81877 Losartan 100 mg daily, metoprolol 25 mg XR daily Today's Plan:- Bloodwork ordered today- Stable. Continue current medication s without changes Mixed hyperlipidemia 267 168043 E78.2 40905 Atorvastat in 80 mg daily -Lipid panel ordered today. Continue current medication s without changes Primary fi bromyalgia syndrome 93969924 M79.7 564983 Follows with rheumatmachelle molina (Dr. Collin Bennett at [facility]). Takes gabapentin TID - Continue active management per antonia gy Osteopenia 636573104 M85 .80 93816698 DEXA with osteopenia in 2023. Taking 4000 units VitD3 daily History of pulmonary embolus 496624445 Z86.942 6127852 Apixaban 5 mg BID-Diagno sed in Oct 2024. Has follow up with pulm in May 2025 to decide if Apixaban is needing to be continued - Stable. Continue current medication s without changes. F/U with pulm as scheduled Gastroesop hageal reflux disease without esophagitis 106932578 K21.9 870023 Omeprazole 20 mg daily- Stable. Continue current medication s without changes History of Spinal surgery 730147093 Z98.890 [id number] -Kyphoplas ty done on Oct 17, 2024seen by pain medicine and given tylenol/co deine rx which she rarely uses. Vertigo 468350736 R42 85307 -reportedl y had done vestibular rehab in the past which has helped. Not currently doing and using meclizine multiple times per week.Refer to ENT for considerat ion of vestibular rehab episodes Memory impairment 383736 006 R41.3 980598 self reported. Difficult to assess given first visit. Will triage with bloodwork today Adult heal th examination 822948077 Z00.00 [id number] Baseline blood work ordered today. Requesting records from former PCP. Uncertain when she is due for Medicare wellness exam [id number] ELKIN GREGORY MD E[facility] [address] [place] [address] 02/24/2025 15:27:26 02/25/2025 13:30:12 Dizziness 991242643 R42 31608 Ana-Hallpi ke testing negative. Audiogram reviewed and interprete d. Asymmetric snhl right > left. Very severe on the right with poor discrimina tion score. MRI head/IACs to r/o acoustic neuroma. If normal would set her up for vestibular rehab. F/u after MRI Impacted c erumen of bilateral ears 0010856824 678668 H61.23 117285 Removed from each canal. Asymmetric al sensorineural hearing loss 630732129 H90.3 653782 Right > left [id number] TOM[place], [place] [address] [place] [address] 02/24/2025 16:05:44 02/25/2025 04:20:18 Dizziness and giddiness 066866850 R42 44632 Ear pressu re sensation 678846167 H93.8X3 92291894 Sensorineu ral hearing loss of bilateral ears 148664472 H90.3 29062488 [id number] TANNER HERNANDEZ MD [facility] [address] [place] [address] 03/12/2025 13:49:10 03/12/2025 15:01:12 Adult health examination 522989894 Z00.00 [facility] Vaccines/S creenings: Flu- due fall ovid- initial series in 2020. Most recent booster: fall SV- UTDPneumon ia- UTDTetanus - UTD, due 2032Shingl es- UTD (x2 per patient)HB V- Mammogram: Aged out of required screening windowDEXA : April 14, 2024: Osteopenia . Repeat in 2 yearsColon Ca: Aged out of required screening windowCerv ical Ca: Aged out of required screening windowLung Ca: N/A, quit >15 years agoHCV: Discussed with patient. Will test with next routine bloodwork Screening mammography 24 754579 Z12.31 Last mammogram 04/08/2024 , BI-RADS category 1, Negative.T here is no evidence of malignancy . Screening mammograms arerecomme nded in one year. Screening for malignant neoplasm of colon 690594458 Z12.11 No previous colonoscop y in patients chart, in view of patients age further screening is not indicated. Menopausal and postmenopausal disorders 225683613 N95.8 Last DEXA 04/14/2024 , patient has osteopenia , recommende d to repeat in 2 years. Hepatitis C screening 41 8313886 Z11.59 Has patient ever had Hep C screening? NO record in chart. Active immunization 0767 9002 Z23 Has patient had Hep B vaccine? NO record in chart.Prev nar20- UTD per patientTda p- 01/18/2023 Shingles- UTD per [id number] 01/2025 flu- No record in chart. Eye disord er screening 667014827 Z13.5 Has patient ever had eye/glauco ma screening? NO record in chart. Ex-smoker 7147331 Z87.89 1 161660 Former smoker. No previous CT chest lung nodule screening in patients chart. Essential hypertension 58222589 I10 90818 Losartan 100 mg daily, metoprolol 25 mg XR daily. Labs done February 2025 Today's Plan:- Stable/wel l controlled . Continue without changes. Recommende d home BP readings given dizziness as below Gastroesop hageal reflux disease without esophagitis 801489866 K21.9 823119 Omeprazole 20 mg daily - Stable. Continue current medication s without changes Mixed hyperlipidemia 267 164821 E78.2 15896 Atorvastat in 80 mg daily. Lipid panel well-contr olled in February 2025 (LDL 63) - Stable. Continue without changes Anxiety 96222701 F41.9 22895 Citalopram 20 mg daily, Wellbutrin 150 mg SR daily - Stable. Continue current medication s without changes Osteopenia 191859266 M85 .80 70360692 DEXA with osteopenia in 2023. Taking 4000 units VitD3 daily. - Repeat DEXA in 2 years (April 2026) Primary fi bromyalgia syndrome 22512831 M79.7 200192 Follows with antonia molina (Dr. Collin Bennett at [facility]). Takes gabapentin TID - Continue active management per rheumatmachelle molina Dizziness 051564763 R42 42412 -reportedl y had done vestibular rehab in [...] related. Continue with MRI head as scheduled [id number] GABRIELLE BOCANEGRA MD [facility] [address] [place] [address] 05/12/2025 10:07:02 05/12/2025 11:02:02 History of Malignant melanoma 823267616 Z85.89 S/P MM on left biceps 0.5 mm 04/2020 - doing well History of malignant basal cell neoplasm of skin 866894179 Z85.828 Status post BCC on left dorsal forearm - doing well Lentiginosis 143961522 L 81.4 Reassuranc e Recommende d Equate Ultra Sunscreen 30+ and sun protecting hats/cloth ing Raised quinn orrheic keratosis 2317587775 39132 L82.1 Reassuranc e Dermatofibroma 965183141 D23.9 Reassuranc e Neoplasm o f uncertain behavior of skin 08993985 D48.5 Left upper buttockEdu cation, thenshave bxand base destroyed with electrodes sication. R/O CAConsent and Photos obtainedSe e procedure notePatien t tolerated wellWound care informatio n providedFo llow up pend path Purpuric rash 111452529 D69.2 50701 reassuranc e Actinic keratosis 375960 007 L57.0 83271 Education, then cryodestru ction with liquid nitrogen (LN) x 3Discussed using 5FU in late Fall Pressure i njury of ear 134667630 L89.819 8367314675 Right ear? vs otherEDU and tx options discussedR ecommended OTC corn pads or donut pillowF/up if worsens [id number] GABRIELLE BOCANEGRA MD [facility] [address] [place] [address] 05/18/2025 11:06:17 05/18/2025 12:09:35 History of Malignant melanoma 853496646 Z85.89 S/P MM on left biceps 0.5 mm 04/2020 - doing well History of malignant basal cell neoplasm of skin 812571721 Z85.828 Status post BCC on left dorsal forearm - doing well Basal cell carcinoma of truncal skin 009998661 C44.519 [id number] Left upper buttockEdu cation, then remnants destroyed with electrodes sication and curettage times 3 (ED&C X 3)Consent obtainedSe e procedure notePatien t tolerated wellWound care informatio n providedFo llow up in 3-4 months [id number] TANNER HERNANDEZ MD [facility] [address] [place] [address] 06/12/2025 11:34:36 06/13/2025 04:23:25 History of pulmonary embolus 759436281 Z86.575 [id number] Diagnosed in Oct 2024 and remained on Apixaban until May where this was discontinu ed by pulmonolog y - No longer requiring anticoagul ation. Defer management to pulmonolog y Ataxia R27.0 83352 Prior laboratory workup including CBC, CMP, folate/B12 , TSH unremarkab le. MRI head normal through ENT in 2024. Today's plan:- We discussed possibilit y that her symptoms are age-relate d and importance of managing expectatio ns in terms of balance/co ordination .- Will trial blood pressure modificati on as below Essential hypertension [id number] [id number] Losartan 100 mg daily, metoprolol 25 mg XR daily. Labs done February 2025 Home BP readings: 130-150 systolic at home Today's Plan:- Stop metoprolol and start amlodipine 2.5 mg daily to see if balance improves- Continue home BP readings Adult [facility] examination [id number] Z00.00 [id number] Healthcare Maintenanc e: Vaccines:F uzair- due fall ovid- initial series in 2020. Most recent booster: fall SV- UTDPneumon ia- UTDTetanus - UTD, due 2032Shingl es- UTD (x2 per patient) Screenings :Mammogram : Normal April 2025DEXA: April 14, 2024: Osteopenia . Repeat in 2 yearsColon Ca: Aged out of required screening windowCerv ical Ca: Aged out of required screening windowLung Ca: N/A, quit >15 years agoHCV: Discussed with patient. Will test with next routine bloodwork Health Concerns Section Related Observation LastModified by Organization Detai ls LastModified Time None Recorded Concern Status LastModified by Organization Details LastModified Time None Recorded Advance Directives Directive None Recorded Payers Insurance Date Sequence Insurance Name Policy Number Policy Vaughn Covered Member ID Vaughn Member ID Guarantor Name 06/11/2025 2 [employer] (MEDICARE SUPPLEMENT) Sarah Francisco Scovell [id number] Sarah Francisco Scovell 06/11/2025 1 MEDIC[employer] (MEDICARE) Sarah G Scovell [id number] Sarah Hansen Notes Date Note Type Note Provider Name and Address Organization Details Recorded Time 02/24/2025 text/html Ref: Tanner Hernandez [facility] Complaint: DizzinessTiming: Years, worsened over the [...] when she is dizzy ELKIN GREGORY MD [address] [place] [address], [phone], [facility] 02/24/2025 16:43:00 03/12/2025 text/html ROS as [...] History:Work: retired, former [employer]: lives with in [facility] [place]: former smoker, quit 50+ years agoAlcohol: occasionalIllicits: [...] after drinking alcohol or ride with a mechanic driver who has been drinking? - No [...] friends, or caretakers? - [facility]12/2025 TANNER HERNANDEZ MD [address] [place] [address], [phone], [facility] 03/12/2025 14:57:59 05/12/2025 text/html ROS as noted in the HPI Established PatientHx of MM on left biceps 0.5 mm 04/2020 - doing wellMonitor: BCC Pt is present today for annual skin exam. Pt is c/o pink scaly patches on temples and forearms. No other concerns. Patient is on ASANo issues with bleeding, scarring, or healingDenies any other new, changing, or bleeding lesions, or other rashes, feels well ,in a good mood has no family history of melanoma. GABRIELLE BOCANEGRA MD [address] [place] [address], [phone], [facility] 05/12/2025 13:00:23 05/18/2025 text/html ROS as noted in the HPI Established Patient - Pt is present today for EDC on Left upper buttock that was bx and proven BCC. Pt states the site is doing well.Hx of MM on left biceps 0.5 mm 04/2020 - doing wellMonitor: BCC Patient is on ASANo issues with bleeding, scarring, or healingDenies any other new, changing, or bleeding lesions, or other rashes, feels well ,in a good mood has no family history of melanoma. GABRIELLE BOCANEGRA MD [address] [place] [address], [phone], [facility] 05/18/2025 12:52:29 06/12/2025 text/html ROS as noted in the HPI Sarah Hansen is a 79 year old female with fibromyalgia, hypertension, hyperlipidemia, GERD, history of PE, osteopenia, anxiety, chronic vertigo/dizziness, history of total hysterectomy, history of bilateral total knee replacement. Today, she presents for follow-up regarding balance issues/dizziness. Her main concern today is related to balance/coordination issues. She has noticed difficulty with gathering her balance before walking after standing from a seated position. This has been more problematic for her since her hospitalization earlier in 2024. She was undergoing physical therapy which was completed in March 2025 and she felt this was helpful. However, she wonders if more could be done to help her balance as she feels symptoms have no longer improved and are not where she would quite like them to be. While she has dealt with vertigo in the past, she states her current concern is separate/different from this. Regarding her vertigo, she had MRI head done through ENT which was ultimately negative and was offered vestibular rehab if she was interested. She has not pursued this yet. She has had no medication changes aside from discontinuation of apixaban per her information systems coordinator. She had been on DOAC therapy since October 2024 for history of PE. She is now taking a baby aspirin alone. She is monitoring blood pressure at home with average readings 130-150 systolic and no true low BP readings. She denies any loss of consciousness or falls Social History:Work: retired, former [employer]: lives with in [facility] [place]: former smoker, quit 50+ years agoAlcohol: occasionalIllicits: noneReligion: christianHobbies: plays piano, enjoys reading.Does a viking cruise in the fall Medicare wellness exam: March 2025 TANNER HERNANDEZ MD [address] [place], [phone], [facility] 06/12/2025 12:22:06 OBGyn Episode No OBEpisode recorded.
--- OUTSIDE RECORDS SUMMARY | 2025-08-17 14:13 | XMS_ITS | Clinical Summary ---
Author Organization [facility] Address [address] [place] [address] Care Team Providers Care Siderographist Name Role Phone Tanner Mcdonnell MD Primary [...] 1 tablet by mouth Daily. Once daily-8mg [id number] mcg Active clobetasol propionate (TEMOVATE) 0.05 % [...] Citalopram, Back injection, she has seen a painting worker 1. Tylenol PRN is ok as directed [...] Citalopram, Back injection, she has seen a painting worker 1. Tylenol PRN is ok as directed [...] (03/18/2019): Added automatically from request for surgery [id number] Family History Medical History Relation Name Comments [...] [facility] DEXA [address] [phone] 09/11/2025 1:45 PM EST Office Visit [facility]HEUM[facility]Y [address] [facility] [address] [place] [address] Collin Bennett DO [address] [address] [phone] (work) Health Maintenance Due Date Last Done Comments DXA SCAN 1945 Pneumococcal Vaccine 50+ (1 of 1 - PCV) 1995 ZOSTER VACCINE (1 of 2) 1995 ANNUAL WELLNESS VISIT 12/12/2018 HEPATITIS C SCREENING 12/12/2018 RSV Vaccine - Adults (1 - 1- dose 75+ series) 2020 INFLUENZA VACCINE 05/08/2025 COVID-19 Vaccine (9 - Pfizer risk 2023- season) 2025 06/13/2024, 07/25/2023, 09/13/2022, Additional history exists TDAP/TD VACCINES (2 - Td or Tdap) 01/18/2033 023 MAMMOGRAM Discontinued 03/21/2023, 03/08, 03/20/2022, Additional history exists Medical Devices Implanted Type Area Interpretive Program Coordinator Device Identifier Shelf Expiration Date Model / Serial / Lot Implant Implant Left: Knee Cmt Bone Palacos R Hi/Visc 1x40 - [id number] Implanted:Qty: 1 on 04/21/2019 by Yevgeniy Leonard MD at [facility] Right: Knee [employer] [id number] 11/07/2022 [id number] / / [id number] Comp Fem/Kn Legion Oxinium Ps Sz3 Rt - [id number] Implanted:Qty: 1 on 04/21/2019 by Yevgeniy Leonard MD at [facility] Right: Knee [employer] [id number] 12/06/2028 [id number] / / [id number] Base Tib/Kn Gen2 Nonpor Ti Sz2 Rt - [id number] Implanted:Qty: 1 on 04/21/2019 by Yevgeniy Leonard MD at [facility] Right: Knee [employer] [id number] 02/08/2029 [id number] / / [id number] Pat Gen2 Biconvex 70z18on - [id number] Implanted:Qty: 1 on 04/21/2019 by Yevgeniy Leonard MD at [facility] Right: Knee [employer] [id number] 02/16/2029 [id number] / / [id number] Insrt Tib Flx Hi Gen2 Ps Sz1to2 15mm - [id number] Implanted:Qty: 1 on 04/21/2019 by Yevgeniy Leonard MD at [facility] Right: Knee [employer] [id number] 03/31/2028 [id number] / / [id number] Totl Kn Martin Shaw Nephew - [id number] Implanted:Qty: 1 on 04/21/2019 by Yevgeniy Leonard MD at [facility] Right: Knee [employer] [id number] / / Insurance MEDICARE A & B [facility] LIFE INSURANCE [id number] Advance Directives * CPR (Attempt to Resuscitate) (Latest Code Status on File) Date Activated Date Inactivated Comments 04/21/2019 4:33 PM 04/22/2019 5:03 PM Question Answer Comments Code Status (Patient has no pulse and is not breathing): CPR (Attempt to Resuscitate) Medical Interventions (Patie nt has pulse or is breathing): Full Level Of Support Discussed With: Patient Care Teams Siderographist Relationship Specialty Start Date End Date Tanner Mcdonnell MD PCP - General Internal Medicine 03/10/25
[2025-08-17 15:02] LABS: Hematocrit 38.8 % (37.0-47.0); Hemoglobin 13.0 g/dL (12.2-16.2); Immature Granulocytes % 0.1 %; Mean Corpuscular HGB Conc 33.5 g/dL (31.8-35.4); Mean Corpuscular Hemoglobin 28.4 pg (27.0-31.2); Mean Corpuscular Volume 84.7 fl (81-99); Nucleated Red Blood Cells % 0 %; Platelet Count 205 K/mm3 (142-424); Red Blood Count 4.58 M/mm3 (4.20-5.40); Red Cell Distribution Width-SD 39.6 fL; White Blood Count 7.3 K/mm3 (4.8-10.8)
[2025-08-17 15:12] LABS: D-Dimer 0.77 ug/mL (0.0-0.5)
== END 2025-08-17 23:59 | disposition home or self-care (01) ==
LOC: LAB 14:11
PROVIDERS: Visit Provider Internal Medicine Pulmonary Disease
DX: J45.909 Unspecified asthma, uncomplicated (principal); I26.92 Saddle embolus of pulmonary artery without acute cor pulmonale
CPT/HCPCS: 36415; 85025; 85378

== ENCOUNTER 2025-08-18 11:42 | Day surgery (SDC) | payer MEDICARE, OTHER, SELFPAY ==
[2025-08-18 11:46] VITALS: BP 189/67; PULSE 82; RESP 18; O2SAT 95
[2025-08-18 11:49] VITALS: BP 150/86; PULSE 76; RESP 16; O2SAT 95; BMI 24.8
[2025-08-18] MEDS: DEXAMETHASONE 10MG/ML 1ML VIAL 10 MG (11:52)
[2025-08-18] MEDS: LIDOCAINE 1% 5ML PF VIAL 5 ML (11:52)
[2025-08-18] MEDS: BUPIVACAINE 0.25% 10ML INJ 25 MG IJ (11:52)
[2025-08-18 12:03] VITALS: BP 156/75; PULSE 83; RESP 16; O2SAT 94
--- NOTE | 2025-08-18 12:05 | P.PCN_ITS ---
Procedure Date: 08/18/25 Time: 11:50 Anesthesiologist:: Rex Bowman CRNA Complications:: None Pre-procedure Diagnosis:: Bilateral sacroiliitis Post-procedure Diagnosis:: Same Indications for Procedure:: Patient is a very pleasant 79-year-old female who comes to clinic today for bila teral sacroiliac joint injection of cortisone and local anesthetic. Patient describes low lumbar back pain off midline bilaterally. Bilateral posterior hip pain. Difficulty transitioning from sitting to standing. Difficulty with ambulation. She rates her pain 7/10. Procedure Details:: Procedure: Bilateral sacroiliac joint injections under fluoroscopy Informed consent was obtained and the risks and benefits of the procedure were explained to the patient.~ The patient was taken to the procedure room and noninvasive monitors were placed including a noninvasive blood pressure cuff and pulse oximeter.~ The patient was placed prone on the procedure table. Both hips were cleansed using Betadine as a cleansing solution. C-arm fluoroscopy was used to view the right sacroiliac joint.~ The skin and subcutaneous tissues were anesthetized using lidocaine 1.5% and a 25-gauge needle.~ After this, a 22-gauge spinal needle was inserted under fluoroscopic guidance into the inferior aspect of the right sacroiliac joint.~ Omnipaque dye was injected and good spread was seen throughout the joint.~ After this, approximately 5 mL of bupivacaine, 0.25% and dexamethasone 5 mg was incrementally injected into the right sacroiliac joint. We then moved to the left sacroiliac joint.~ The skin and subcutaneous tissues were anesthetized using lidocaine 1.5% and a 25-gauge needle.~ After this, a 22- gauge spinal needle was inserted under fluoroscopic guidance into the inferior aspect of the left sacroiliac joint.~ Omnipaque dye was injected and good spread was seen throughout the joint. After this, approximately 5 mL of bupivacaine, 0.25% and dexamethasone 5 mg was incrementally injected into the left sacroiliac joint.~ The patient tolerated the procedure well with no complications. The patient was observed in the Pain Clinic and then was discharged home neurologically intact. Plan and Disposition:: Patient was discharged without incident.
== END 2025-08-18 12:03 | disposition home or self-care (01) ==
PROVIDERS: Visit Provider Nurse Anesthetist, Certified Registered
DX: M46.1 Sacroiliitis, not elsewhere classified (principal); M79.7 Fibromyalgia; E78.5 Hyperlipidemia, unspecified; I11.9 Hypertensive heart disease without heart failure; K21.9 Gastro-esophageal reflux disease without esophagitis; I27.20 Pulmonary hypertension, unspecified; E04.1 Nontoxic single thyroid nodule; Z86.718 Personal history of other venous thrombosis and embolism; Z87.891 Personal history of nicotine dependence; Z88.5 Allergy status to narcotic agent; Z88.8 Allergy status to other drugs, medicaments and biological substances; Z79.891 Long term (current) use of opiate analgesic; Z90.710 Acquired absence of both cervix and uterus; Z90.49 Acquired absence of other specified parts of digestive tract; Z96.653 Presence of artificial knee joint, bilateral
CPT/HCPCS: G0260; J0665; J1100; J2003

== ENCOUNTER 2025-08-25 11:07 | Outpatient (CLI) | payer MEDICARE, OTHER, SELFPAY ==
[2025-08-25] MEDS: ALBUTEROL 0.083% 2.5 MG/3 ML NEB IH (11:52)
--- NOTE | 2025-08-25 11:53 | PC.NURSE ---
PFT and 6 Minute Walk Test completed without incident. Albuterol 0.083% given via HHN, per written protocol, Pt tolerated tx well.
== END 2025-08-25 23:59 | disposition home or self-care (01) ==
LOC: RT 11:08
PROVIDERS: Visit Provider Internal Medicine Pulmonary Disease
DX: R94.2 Abnormal results of pulmonary function studies (principal); R06.09 Other forms of dyspnea; R06.02 Shortness of breath
CPT/HCPCS: 94060; 94618; 94726; 94729